=== PATIENT | female | born 1945 | race Caucasian/White ===

== ENCOUNTER → 2018-07-13 | Outpatient (CLI) | payer MEDICARE, BC ==
[~2018-07-13] MED LIST: ACHD5005 PO; ASP81TEC PO; ATRV10T PO; BUPR150T6 PO; CALTRATE 600 +1 EACH PO; CEPH500C PO; CLD600T PO; DIAZ5TAB3 PO; ESCI5TAB PO; EST45C VG; FERR27TA PO; HYDR-757 PO; LACT1CAP62 PO; LEVO125T PO; LRZ1T PO; LVT.112T PO; OMG1KC PO
--- NOTE | 2018-07-13 13:15 | Diagnostic Imaging Report ---
EXAMINATION: Right hand at 09:51 a.m. INDICATION: Hand pain. FINDINGS: Three views were obtained. There are no prior studies available for comparison. There is no fracture, dislocation, or acute bony abnormality evident. In particular, there is no sign of an acute injury to the third and fourth metacarpals. 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 There is also at least moderate narrowing of the radiocarpal joint. The soft tissues are unremarkable. IMPRESSION: 1. There is no evidence for an acute bony abnormality. 2. 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 Dictated by: Dictated on workstation # [id number]
== END ==
LOC: RAD 09:19
PROVIDERS: ATTEND Nurse Practitioner Family
DX: M19.041 Primary osteoarthritis, right hand (principal)
CPT/HCPCS: 73130

== ENCOUNTER 2018-12-27 08:46 | Emergency (ER) | payer MEDICARE, BC ==
[~2018-12-27] VITALS: Ht 167.6 cm; Wt 77.6 kg
--- OUTSIDE RECORDS SUMMARY | 2018-12-27 08:56 | XMS REPORT | CCD ---
Author Author [facility]ina [facility]ado Organization [facility] Address [address] [place] [address] Phone Care Team Providers Care Customs Verifier Name Role Phone PP Unavailable CCM Unavailable Summary Purpose Interface Exchange Insurance Providers Payer name Policy type / Coverage type Covered libertarian ID Effective Begin Date Effective End Date WPS Medicare Part B [id number] 2014 Unknown [facility] [id number] 2014 Unknown Family history Sister Diagnosis Age At Onset Hypertension Unknown Mother Diagnosis Age At Onset No Family Disease Entered N/A Brother Diagnosis Age At Onset Hypertension Unknown Son Diagnosis Age At Onset No Family Disease Entered N/A Daughter Diagnosis Age At Onset No Family Disease Entered N/A Father Diagnosis Age At Onset Colon cancer Unknown Heart Attack Unknown Heart disease Unknown Social History Social History Element Codes Description Effective Dates Tobacco history SNOMED CT: 5289130 Former smoker quit 2 years ago, social smoker, 1 pack per month 200709/30/2013 Employment Unknown 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 Unknown Has never used illegal drugs 06/17/2011 Allergies, Adverse Reactions, Alerts Allergies, Adverse Reactions, Alerts data not found Past Medical History Illness Codes Condition Status Onset Date Resolved Date Encounter for immunization ICD-9: V04.81 ICD-10: Z23 Active 06/07/2017 Unknown Acute vaginitis ICD-9: 623.5 ICD-10: N76.0 Active 02/16/2017 Unknown Pelvic and perineal pain ICD-9: [id number] ICD-10: R10.2 Active 02/16/2017 Unknown Major depressive disorder, recurrent, moderate ICD-9: 296.32 ICD-10: F33.1 Active 06/20/2016 Unknown 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.0 Active 02/06/2017 Unknown Encounter for general adult medical examination with abnormal findings ICD-9: V70.0 ICD-10: Z00.01 Active 11/17/2016 Unknown Hypothyroidism, unspecified ICD-9: 244.9 ICD-10: E03.9 Active 12/05/2013 Unknown Generalized anxiety disorder ICD-9: 313.0 ICD-10: F41.1 Active 06/20/2016 Unknown Depression Unknown Inactive 09/05/2016 Unknown Hypertension Unknown Inactive 09/05/2016 Unknown Hypothryroidism Unknown Inactive 09/05/2016 Unknown Acute upper respiratory infection, unspecified ICD-9: 465.9 ICD-10: J06.9 Active 07/22/2015 Unknown Cough ICD-9: 786.2 ICD-10: R05 Active 07/22/2015 Unknown 2Nd degree burn of multiple fingers of right hand not including thumb ICD-9: 944.23 Inactive 02/15/2015 Unknown ACUTE URI ICD-9: 465.9 Inactive 01/21/2014 Unknown Arthralgia ICD-9: 719.40 Inactive 04/23/2014 Unknown Arthropod bite ICD-9: 919.4 Inactive 04/23/2014 Unknown CHEST PAIN NEC ICD-9: 786.59 Inactive 09/05/2016 Unknown Chronic depression ICD- 9: 311 Inactive 08/22/2011 Unknown Colon cancer screening ICD-9: V76.51 Inactive 10/10/2013 Unknown COUGH ICD-9: 786.2 Inactive 01/21/2014 Unknown Foot pain ICD-9: 729.5 Inactive 12/09/2014 Unknown GENERALIZED ANXIETY DISEASE ICD-9: 300.02 Inactive 12/05/2013 Unknown HYPERLIPIDEMIA ICD-9: 272.4 Inactive 06/17/2011 Unknown HYPOTHYROIDISM ICD-9: 244.9 Inactive 12/05/2013 Unknown Muscle tension headache ICD-9: 307.81 Inactive 05/16/2014 Unknown Myalgia ICD-9: 729.1 Inactive 04/23/2014 Unknown Neck pain ICD-9: 723.1 Inactive 05/16/2014 Unknown Pelvic pain in female ICD- 9: 625.9 Inactive 10/10/2014 Unknown Poison diana dermatitis ICD- 9: 692.6 Inactive 04/23/2014 Unknown POSTSURGICAL HYPOTHYROIDISM ICD-9: 244.0 Inactive 09/05/2016 Unknown Skin eruption ICD-9: 782.1 Inactive 02/11/2014 Unknown Vac strep pneumoniae-flu ICD-9: V06.6 Inactive 04/15/2014 Unknown Well woman exam with routine gynecological exam ICD-9: V72.31 Inactive 10/15/2013 Unknown Encounter for general adult medical examination without abnormal findings ICD-9: V70.0 ICD-10: Z00.00 Active 11/12/2015 Unknown Encounter for immunization ICD-9: V03.9 ICD-10: Z23 Active 11/12/2015 Unknown Generalized anxiety disorder ICD-9: 300.02 ICD-10: F41.1 Active 12/05/2013 Unknown Other depressive episodes ICD-9: 311 ICD-10: F32.8 Active 08/22/2011 Unknown Major depressive disorder, recurrent, unspecified ICD-9: 296.30 ICD-10: F33.9 Active 05/25/2015 Unknown Hammertoe ICD-9: 735.4 Active 12/09/2014 Unknown Urinary incontinence ICD- 9: 788.30 Active 10/10/2014 Unknown Welcome to Medicare preventive visit ICD-9: V70.0 Active 09/30/2013 Unknown Hyperlipidemia Unknown Active 06/17/2011 Unknown Problems Condition Codes Effective Dates Condition Status Encounter for immunization ICD-9: V04.81 ICD-10: Z23 06/07/2017 Active Acute vaginitis ICD-9: 623.5 ICD-10: N76.0 02/16/2017 Active Pelvic and perineal pain ICD-9: [id number] ICD-10: R10.2 02/16/2017 Active Major depressive disorder, recurrent, moderate ICD-9: 296.32 ICD-10: F33.1 06/20/2016 Active 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.0 02/06/2017 Active Encounter for general adult medical examination with abnormal findings ICD-9: V70.0 ICD-10: Z00.01 11/17/2016 Active Hypothyroidism, unspecified ICD-9: 244.9 ICD-10: E03.9 12/05/2013 Active Generalized anxiety disorder ICD-9: 313.0 ICD-10: F41.1 06/20/2016 Active Depression Unknown 09/05/2016 Inactive Hypertension Unknown 09/05/2016 Inactive Hypothryroidism Unknown 09/05/2016 Inactive Acute upper respiratory infection, unspecified ICD-9: 465.9 ICD-10: J06.9 07/22/2015 Active Cough ICD-9: 786.2 ICD-10: R05 07/22/2015 Active 2Nd degree burn of multiple fingers of right hand not including thumb ICD-9: 944.23 02/15/2015 Inactive ACUTE URI ICD-9: 465.9 01/21/2014 Inactive Arthralgia ICD-9: 719.40 04/23/2014 Inactive Arthropod bite ICD-9: 919.4 04/23/2014 Inactive CHEST PAIN NEC ICD-9: 786.59 09/05/2016 Inactive Chronic depression ICD- 9: 311 08/22/2011 Inactive Colon cancer screening ICD-9: V76.51 10/10/2013 Inactive COUGH ICD-9: 786.2 01/21/2014 Inactive Foot pain ICD-9: 729.5 12/09/2014 Inactive GENERALIZED ANXIETY DISEASE ICD-9: 300.02 12/05/2013 Inactive HYPERLIPIDEMIA ICD-9: 272.4 06/17/2011 Inactive HYPOTHYROIDISM ICD-9: 244.9 12/05/2013 Inactive Muscle tension headache ICD-9: 307.81 05/16/2014 Inactive Myalgia ICD-9: 729.1 04/23/2014 Inactive Neck pain ICD-9: 723.1 05/16/2014 Inactive Pelvic pain in female ICD- 9: 625.9 10/10/2014 Inactive Poison diana dermatitis ICD- 9: 692.6 04/23/2014 Inactive POSTSURGICAL HYPOTHYROIDISM ICD-9: 244.0 09/05/2016 Inactive Skin eruption ICD-9: 782.1 02/11/2014 Inactive Vac strep pneumoniae-flu ICD-9: V06.6 04/15/2014 Inactive Well woman exam with routine gynecological exam ICD-9: V72.31 10/15/2013 Inactive Encounter for general adult medical examination without abnormal findings ICD-9: V70.0 ICD-10: Z00.00 11/12/2015 Active Encounter for immunization ICD-9: V03.9 ICD-10: Z23 11/12/2015 Active Generalized anxiety disorder ICD-9: 300.02 ICD-10: F41.1 12/05/2013 Active Other depressive episodes ICD-9: 311 ICD-10: F32.8 08/22/2011 Active Major depressive disorder, recurrent, unspecified ICD-9: 296.30 ICD-10: F33.9 05/25/2015 Active Hammertoe ICD-9: 735.4 12/09/2014 Active Urinary incontinence ICD- 9: 788.30 10/10/2014 Active Welcome to Medicare preventive visit ICD-9: V70.0 09/30/2013 Active Hyperlipidemia Unknown 06/17/2011 Active Medications Medication Codes Instructions Start Date Stop Date Status Fill Instructions Synthroid 112 mcg tablet RxNorm: 745009 TAKE 1 TABLET BY MOUTH DAILY EXCEPT TAKE 1/2 TABLET ON MONDAY, MONDAY, AND Monday05/22/2017 11/05/2017 Active Lipitor 10 mg tablet RxNorm: 603953 TAKE ONE TABLET BY MOUTH EVERY DAY 03/08/2017 05/31/2018 Active Flagyl 500 mg tablet RxNorm: 315334 1 Tablet(s) PO TID 02/16/2017 02/22/2017 Inactive Xanax 0.5 mg tablet RxNorm: 818202 1 Tablet(s) PO QID as needed anxiety 12/23/2016 03/22/2017 Inactive Synthroid 112 mcg tablet RxNorm: 085916 TAKE 1 TABLET BY MOUTH DAILY EXCEPT FOR TAKE 1/2 TABLET ON MONDAY, MONDAY, AND Monday12/23/2016 04/13/2017 Inactive Lexapro 20 mg tablet RxNorm: 257292 TAKE ONE TABLET BY MOUTH DAILY 11/29/2016 05/27/2017 Inactive Zithromax Z-Que 250 mg tablet RxNorm: 012754 1 Tablet(s) PO UD 09/05/2016 09/09/2016 Inactive zpack Kenalog 40 mg/mL suspension for injection RxNorm: 6174969 1 Milliliter(s) Inj 09/05/2016 09/05/2016 Inactive Lipitor 10 mg tablet RxNorm: 151210 TAKE ONE TABLET BY MOUTH EVERY DAY 08/30/2016 02/25/2017 Inactive Ativan 1 mg tablet RxNorm: 044928 1 Tablet(s) PO Q6 PRN as needed TAKE ONE TABLET BY MOUTH THREE TIMES A DAY OR EVERY 6 HOURS NEEDED FOR ANXIETY 08/30/2016 12/22/2016 Inactive Synthroid 112 mcg tablet RxNorm: 251312 1 Tablet(s) PO daily except one-half tab on Mon/Mon/Mon08/23/2016 12/12/2016 Inactive will refill when needed Lexapro 20 mg tablet RxNorm: 894485 TAKE ONE TABLET BY MOUTH DAILY 08/02/2016 11/28/2016 Inactive Synthroid 112 mcg tablet RxNorm: 165019 1 Tablet(s) PO daily except 1/2 tab wed and sat 05/25/2016 08/22/2016 Inactive will refill when needed Xanax 0.5 mg tablet RxNorm: 825280 1 Tablet(s) PO QID as needed anxiety 05/10/2016 08/29/2016 Inactive Lexapro 20 mg tablet RxNorm: 135371 1 Tablet(s) PO daily 05/03/2016 07/31/2016 Inactive 1/2 tab x 1 week then increase to a full pill daily buspirone 5 mg tablet RxNorm: 850003 TAKE ONE-HALF TABLET BY MOUTH TWICE A DAY 03/15/2016 05/02/2016 Inactive Synthroid 112 mcg tablet RxNorm: 026839 1 Tablet(s) PO daily 02/25/2016 05/24/2016 Inactive Ativan 1 mg tablet RxNorm: 762692 Tablet(s) TAKE ONE TABLET BY MOUTH THREE TIMES A DAY OR EVERY 6 HOURS NEEDED FOR ANXIETY 02/04/2016 05/08/2016 Inactive Synthroid 125 mcg tablet RxNorm: 836503 TAKE ONE TABLET BY MOUTH TWICE WEEKLY 01/11/2016 02/24/2016 Inactive Synthroid 112 mcg tablet RxNorm: 829486 TAKE ONE TABLET BY MOUTH FIVE DAYS A WEEK 01/11/2016 02/24/2016 Inactive Wellbutrin 75 mg tablet RxNorm: 227039 TAKE ONE TABLET BY MOUTH TWICE A DAY 01/11/2016 05/02/2016 Inactive Ativan 1 mg tablet RxNorm: 624225 TAKE ONE TABLET BY MOUTH THREE TIMES A DAY OR EVERY 6 HOURS NEEDED 12/03/2015 12/27/2015 Inactive Lipitor 10 mg tablet RxNorm: 958258 TAKE ONE TABLET BY MOUTH EVERY DAY 12/03/2015 08/28/2016 Inactive Ativan 1 mg tablet RxNorm: 092059 Tablet(s) TAKE ONE TABLET BY MOUTH THREE TIMES A DAY AND TAKE ONE TABLET BY MOUTH EVERY 6 HOURS NEEDED FOR ANXIETY 12/03/2015 12/02/2015 Inactive (Response to an electronic controlled substance refill request - RxReferenceNumber: [id number]) Wellbutrin 75 mg tablet RxNorm: 313727 1 Tablet(s) PO BID 11/13/2015 01/10/2016 Inactive Ativan 1 mg tablet RxNorm: 951308 Tablet(s) TAKE ONE TABLET BY MOUTH THREE TIMES A DAY AND TAKE ONE TABLET BY MOUTH EVERY 6 HOURS NEEDED FOR ANXIETY 09/23/2015 10/30/2015 Inactive (Response to an electronic controlled substance refill request - RxReferenceNumber: [id number]) buspirone 5 mg tablet RxNorm: 711171 TAKE ONE-HALF TABLET BY MOUTH TWICE A DAY 08/18/2015 03/01/2016 Inactive ceftriaxone 500 mg solution for injection RxNorm: 6510506 Inj 07/23/2015 07/23/2015 Inactive Zithromax Z-Que 250 mg tablet RxNorm: 004033 1 Tablet(s) PO UD 07/23/2015 07/27/2015 Inactive ZPACK buspirone 5 mg tablet RxNorm: 494623 1 Tablet(s) PO daily 07/06/2015 10/03/2015 Inactive buspirone 5 mg tablet RxNorm: 239268 1/2 Tablet(s) PO BID 05/26/2015 07/05/2015 Inactive Lipitor 10 mg tablet RxNorm: 899881 TAKE ONE TABLET BY MOUTH EVERY DAY 04/23/2015 10/19/2015 Inactive Ativan 1 mg tablet RxNorm: 493482 Tablet(s) TAKE ONE TABLET BY MOUTH THREE TIMES A DAY AND TAKE ONE TABLET BY MOUTH EVERY 6 HOURS NEEDED FOR ANXIETY 02/23/2015 04/01/2015 Inactive (Response to an electronic controlled substance refill request - RxReferenceNumber: [id number]) Synthroid 125 mcg tablet RxNorm: 984508 1 Tablet(s) PO UD twice weekly 12/10/2014 06/07/2015 Inactive Synthroid 112 mcg tablet RxNorm: 165702 1 Tablet(s) PO UD TAKE ONE TABLET BY MOUTH 5 days a week 12/10/2014 12/04/2015 Inactive Lexapro 20 mg tablet RxNorm: 228667 1 Tablet(s) PO daily 11/26/2014 11/12/2015 Inactive Lipitor 10 mg tablet RxNorm: 011825 TAKE ONE TABLET BY MOUTH EVERY DAY 10/21/2014 04/18/2015 Inactive amoxicillin 500 mg capsule RxNorm: 139949 1 Capsule(s) PO TID 10/15/2014 10/21/2014 Inactive take probiotic BID x 7 days during abt period amoxicillin 500 mg capsule RxNorm: 697450 1 Capsule(s) PO TID 10/15/2014 10/14/2014 Inactive take probiotic BID x 7 days during abt period Ativan 1 mg tablet RxNorm: 881842 TAKE ONE TABLET BY MOUTH THREE TIMES A DAY AND TAKE ONE TABLET BY MOUTH EVERY 6 HOURS NEEDED FOR ANXIETY 08/21/2014 09/28/2014 Inactive (Response to an electronic controlled substance refill request - RxReferenceNumber: [id number]) Ativan 1 mg tablet RxNorm: 199028 1 Tablet(s) PO tid and Q6 PRN as needed 08/18/2014 08/21/2014 Inactive doxycycline hyclate 100 mg tablet RxNorm: 279348 1 Tablet(s) PO BID 04/23/2014 05/25/2015 Inactive prednisone 10 mg tablets in a dose pack RxNorm: 406664 1 Tablet(s) PO 02/14/2014 05/25/2015 Inactive Kenalog 40 mg/mL suspension for injection RxNorm: 1603831 1 Milliliter(s) Inj 02/11/2014 02/11/2014 Inactive Keflex 500 mg capsule RxNorm: 997570 1 Capsule(s) PO TID 01/21/2014 01/27/2014 Inactive Kenalog 40 mg/mL suspension for injection RxNorm: 5748892 Milliliter(s) Inj 01/21/2014 01/21/2014 Inactive Synthroid 112 mcg tablet RxNorm: 352920 1 Tablet(s) PO daily TAKE ONE TABLET BY MOUTH EVERY DAY 12/05/2013 11/29/2014 Inactive Ativan 1 mg tablet RxNorm: 001554 1 Tablet(s) PO Q6 PRN 11/05/2013 02/02/2014 Inactive Lexapro 20 mg tablet RxNorm: 208820 1 Tablet(s) PO daily 11/05/2013 11/04/2013 Inactive Lexapro 20 mg tablet RxNorm: 236257 1 Tablet(s) PO daily 11/05/2013 10/30/2014 Inactive Lipitor 10 mg tablet RxNorm: 004379 1 Tablet(s) PO QPM TAKE ONE TABLET BY MOUTH EVERY DAY 09/30/2013 10/20/2014 Inactive Lexapro 20 mg tablet RxNorm: 568030 1 Tablet(s) PO daily 09/30/2013 11/04/2013 Inactive Synthroid 125 mcg tablet RxNorm: 104068 1 Tablet(s) PO daily 09/10/2013 12/04/2013 Inactive Synthroid 100 mcg tablet RxNorm: 042707 1 Tablet(s) PO daily TAKE ONE TABLET BY MOUTH EVERY DAY 09/06/2013 09/09/2013 Inactive Lipitor 10 mg tablet RxNorm: 828340 Tablet(s) PO TAKE ONE TABLET BY MOUTH EVERY DAY 08/15/2013 09/29/2013 Inactive Synthroid 100 mcg tablet RxNorm: 908623 1 Tablet(s) PO daily TAKE ONE TABLET BY MOUTH EVERY DAY 04/26/2013 09/05/2013 Inactive Ativan 1 mg tablet RxNorm: 355879 1 Tablet(s) PO Q6 PRN 03/13/2013 No Stop Date Active Synthroid 100 mcg tablet RxNorm: 734989 1 Tablet(s) PO daily TAKE ONE TABLET BY MOUTH EVERY DAY 03/13/2013 04/25/2013 Inactive Lexapro 20 mg tablet RxNorm: 724147 1/2 Tablet(s) PO BID 03/13/2013 09/29/2013 Inactive Synthroid 112 mcg tablet RxNorm: 145176 Tablet(s) PO TAKE ONE TABLET BY MOUTH EVERY DAY 01/08/2013 03/12/2013 Inactive Lexapro 20 mg tablet RxNorm: 527195 Tablet(s) PO TAKE 1/2 TABLET EVERY MORNING AND TAKE ONE TABLET BY MOUTH AT BEDTIME 10/18/2012 03/12/2013 Inactive Lipitor 20 mg tablet RxNorm: 899740 1/2 Tablet(s) PO daily 08/20/2012 02/04/2013 Inactive Lipitor 10 mg tablet RxNorm: 662972 1 Tablet(s) PO daily 05/23/2012 08/19/2012 Inactive Synthroid 112 mcg tablet RxNorm: 933168 1 Tablet(s) PO daily 12/16/2011 01/07/2013 Inactive Synthroid 112 mcg Tab RxNorm: 076991 1 Tablet(s) PO daily 12/16/2011 12/15/2011 Inactive Lipitor 10 mg tablet RxNorm: 215311 1 Tablet(s) PO daily 12/15/2011 05/22/2012 Inactive Synthroid 112 mcg Tab RxNorm: 823204 1 Tablet(s) PO every other day 11/09/2011 12/15/2011 Inactive every other day Synthroid 112 mcg Tab RxNorm: 277616 1 Tablet(s) PO every other day 10/21/2011 11/08/2011 Inactive every other day Synthroid 125 mcg Tab RxNorm: 635738 1 Tablet(s) PO every other day 10/21/2011 12/16/2011 Inactive every other day Lexapro 20 mg tablet RxNorm: 400252 1.5 Tablet(s) PO daily 1/2 pill in AM and 1 pill at bedtime 09/22/2011 04/18/2012 Inactive 1/2 q am 1 q hs diazepam 5 mg Tab RxNorm: 370194 1 Tablet(s) PO daily 1 tab bid prn 09/21/2011 05/17/2012 Inactive Lexapro 20 mg Tab RxNorm: 434011 1.5 Tablet(s) PO daily 1/2 pill in AM and 1 pill at bedtime 08/22/2011 09/21/2011 Inactive diazepam 5 mg Tab RxNorm: 780018 1 Tablet(s) PO daily 1 tab bid prn 06/20/2011 09/20/2011 Inactive diazepam 5 mg Tab RxNorm: 230181 1 Tablet(s) PO daily 1 tab bid prn 06/20/2011 06/19/2011 Inactive diazepam 5 mg Tab RxNorm: 169792 1 Tablet(s) PO daily 1 tab bid prn 06/17/2011 06/19/2011 Inactive Lipitor 10 mg Tab RxNorm: 501519 1 Tablet(s) PO daily 05/31/2011 11/26/2011 Inactive diazepam 5 mg Tab RxNorm: 322141 1 Tablet(s) PO BID 1 tab bid prn 04/21/2011 05/20/2011 Inactive Calcium 600 + D(3) Oral RxNorm: Oral No Start Date Active Menest 0.625 mg Tab RxNorm: 373771 1 Tablet(s) PO daily No Start Date 06/16/2011 Inactive Synthroid 125 mcg tablet RxNorm: 890869 Tablet(s) PO No Start Date 09/09/2013 Inactive Ativan 1 mg tablet RxNorm: 209815 1 Tablet(s) PO Q6 PRN No Start Date 08/21/2011 Inactive aspirin 81 mg Tab, Delayed Release RxNorm: 8640093 1 Tablet(s) PO daily No Start Date 09/29/2013 Inactive Lexapro 10 mg Tab RxNorm: 232100 1 Tablet(s) PO daily No Start Date 08/22/2011 Inactive prednisone 10 mg tablets in a dose pack RxNorm: 650520 1 Tablet(s) PO No Start Date 02/13/2014 Inactive Synthroid 112 mcg Tab RxNorm: 368389 Tablet(s) PO tues/thurs/sat/sun No Start Date 10/20/2011 Inactive lorazepam 1 mg Tab RxNorm: 939921 Tablet(s) PO Q6 PRN No Start Date 11/04/2013 Inactive Lipitor 20 mg tablet RxNorm: 902361 1/2 Tablet(s) PO daily No Start Date 08/20/2012 Inactive Vitamin D2 oral RxNorm: oral No Start Date 09/29/2013 Inactive Synthroid 125 mcg Tab RxNorm: 108405 1 Tablet(s) PO No Start Date 10/20/2011 Inactive synthroid 112 mcg mon Medication Administered Medication Codes Instructions Start Date Status Kenalog 40 mg/mL suspension for injection RxNorm: 1923774 1Milliliter 09/05/2016 No longer Active ceftriaxone 500 mg solution for injection RxNorm: 6490334 07/23/2015 No longer Active Kenalog 40 mg/mL suspension for injection RxNorm: 2888075 1Milliliter 02/11/2014 No longer Active Kenalog 40 mg/mL suspension for injection RxNorm: 5410875 Milliliter 01/21/2014 No longer Active Immunizations Vaccine Codes Date Status Pneumococcal (Adult) CVX: 133 11/13/2015 completed Influenza CVX: 141 04/15/2014 completed Pneumococcal (Adult) CVX: 33 04/15/2014 completed PPD Unknown 10/10/2013 completed Influenza CVX: 141 09/30/2013 completed Assessments Condition Codes Effective Dates Encounter for immunization ICD-10: Z23 ICD-9: V04.81 06/07/2017 Pelvic and perineal pain ICD-10: R10.2 ICD-9: ZPC3120 02/16/2017 Acute vaginitis ICD-10: N76.0 ICD-9: 623.5 02/16/2017 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 ICD-9: 244.0 02/06/2017 Major depressive disorder, recurrent, moderate ICD-10: F33.1 ICD-9: 296.32 02/06/2017 Other specified hypothyroidism ICD-10: E03.8 ICD-9: 244.8 11/17/2016 Encounter for general adult medical examination with abnormal findings ICD-10: Z00.01 ICD-9: V70.0 11/17/2016 Generalized anxiety disorder ICD-10: F41.1 ICD-9: 313.0 10/12/2016 Acute upper respiratory infection, unspecified ICD-10: J06.9 ICD-9: 465.9 09/05/2016 Cough ICD-10: R05 ICD-9: 786.2 09/05/2016 Encounter for immunization ICD-10: Z23 ICD-9: V03.9 11/13/2015 Encounter for general adult medical examination without abnormal findings ICD-10: Z00.00 ICD-9: V70.0 11/13/2015 Other depressive episodes ICD-10: F32.8 ICD-9: 311 07/06/2015 Hypothyroidism, unspecified ICD-10: E03.9 ICD-9: 244.9 07/06/2015 Generalized anxiety disorder ICD-10: F41.1 ICD-9: 300.02 07/06/2015 Major depressive disorder, recurrent, unspecified ICD-10: F33.9 ICD-9: 296.30 05/26/2015 2Nd degree burn of multiple fingers of right hand not including thumb ICD-9: 944.23 02/16/2015 HYPOTHYROIDISM ICD-9: 244.9 12/10/2014 Foot pain ICD-9: 729.5 12/10/2014 Hammertoe ICD-9: 735.4 12/10/2014 Urinary incontinence ICD-9: 788.30 10/16/2014 Pelvic pain in female ICD-9: 625.9 10/16/2014 Neck pain ICD-9: 723.1 05/16/2014 Muscle tension headache ICD-9: 307.81 05/16/2014 Arthralgia ICD-9: 719.40 04/23/2014 Myalgia ICD-9: 729.1 04/23/2014 Arthropod bite ICD-9: 919.4 04/23/2014 Poison diana dermatitis ICD-9: 692.6 04/23/2014 Vac strep pneumoniae-flu ICD-9: V06.6 04/15/2014 Skin eruption ICD-9: 782.1 02/11/2014 COUGH ICD-9: 786.2 01/21/2014 ACUTE URI ICD-9: 465.9 01/21/2014 GENERALIZED ANXIETY DISEASE ICD-9: 300.02 12/05/2013 DEPRESSIVE DISORDER NEC ICD-9: 311 11/05/2013 Well woman exam with routine gynecological exam ICD-9: V72.31 10/15/2013 Colon cancer screening ICD-9: V76.51 10/10/2013 Welcome to Medicare preventive visit ICD-9: V70.0 09/30/2013 HYPERLIPIDEMIA ICD-9: 272.4 03/13/2013 CHEST PAIN NEC ICD-9: 786.59 06/17/2011 POSTSURGICAL HYPOTHYROIDISM ICD-9: 244.0 06/17/2011 Reason For Visit Reason For Visit Effective Dates Notes vaccination against influenza 06/07/2017 urinary frequency 02/16/2017 depression 02/06/2017 Annual Medicare Wellness Exam 11/17/2016 depression 10/12/2016 sore throat 09/05/2016 depression 06/21/2016 depression 05/24/2016 depression 05/10/2016 depression 05/03/2016 Annual Medicare Wellness Exam 11/13/2015 cough 07/23/2015 medication follow up 07/06/2015 medication follow up 05/26/2015 pain 02/16/2015 _ 12/10/2014 abdominal pain 10/16/2014 abdominal pain 10/09/2014 _ 08/26/2014 lab follow up headache 05/16/2014 back pain 04/23/2014 pt reports posion diana on left hand and feet vaccination against influenza 04/15/2014 sore throat 01/21/2014 anxiety 12/05/2013 Hospital Follow Up 11/05/2013 went to ER well woman exam (65+ years) 10/15/2013 fatigue 03/13/2013 depression 10/04/2012 anxiety 08/22/2011 chest pain/pressure 06/17/2011 Results Observation Observation Code Item Item Code Result Date Tsh Ord6 hTSH II 1.07 uIU/mL 11/17/2016 Free T4 [id number] FREE T4 1.02 ng/dL 11/17/2016 Lipid Ord30 CHOL 195 mg/dL 10/13/2016 Lipid Ord30 HDL 68.0 mg/dl 10/13/2016 Lipid Ord30 TRIG 69 mg/dL 10/13/2016 Lipid Ord30 LDL 113 mg/dL 10/13/2016 Lipid Ord30 C/HDL 2.9 Ratio 10/13/2016 Comp Metabolic Zbt452 NA 138 mEq/L 10/13/2016 Comp Metabolic Vwo486 K 4.4 mEq/L 10/13/2016 Comp Metabolic Aws168 CL 102 mEq/L 10/13/2016 Comp Metabolic Kjs042 CO2 29.0 mEq/L 10/13/2016 Comp Metabolic Nwi417 ANION GAP 11 10/13/2016 Comp Metabolic Lza786 GLUCOSE 85 mg/dL 10/13/2016 Comp Metabolic Kkn987 Creat 1.0 mg/dL 10/13/2016 Comp Metabolic Ddt205 eGFR 59 ml/min/1.73m2 10/13/2016 Comp Metabolic Tfp062 BUN 21 mg/dL 10/13/2016 Comp Metabolic Cza877 B/C Ratio 21.2 Ratio 10/13/2016 Comp Metabolic Guu728 CALCIUM 9.7 mg/dL 10/13/2016 Comp Metabolic Lif777 ALK PHOS 70 U/L 10/13/2016 Comp Metabolic Mjc826 AST(SGOT) 17 U/L 10/13/2016 Comp Metabolic Wof433 ALT(SGPT) 14 U/L 10/13/2016 Comp Metabolic Bsa411 BILI T 0.9 mg/dL 10/13/2016 Comp Metabolic Szi867 ALBUMIN 4.4 g/dL 10/13/2016 Comp Metabolic Clx978 TPRO 7.1 g/dL 10/13/2016 Comp Metabolic Ucd676 GLOB 2.7 g/dL 10/13/2016 Comp Metabolic Mbm698 A/G Ratio 1.6 Ratio 10/13/2016 Comp Metabolic Mgh731 Osmo 278 mOsmo 10/13/2016 Cbc With Differential Ord2 WBC 6.00 K/ul 10/13/2016 Cbc With Differential Ord2 RBC 4.71 M/ul 10/13/2016 Cbc With Differential Ord2 HGB 14.0 g/dl 10/13/2016 Cbc With Differential Ord2 HCT 42.2 % 10/13/2016 Cbc With Differential Ord2 Neut% 66.4 % 10/13/2016 Cbc With Differential Ord2 Lymph% 23.8 % 10/13/2016 Cbc With Differential Ord2 MCV 89.6 fl 10/13/2016 Cbc With Differential Ord2 MCH 29.7 pg 10/13/2016 Cbc With Differential Ord2 [place]% 7.7 % 10/13/2016 Cbc With Differential Ord2 MCHC 33.2 pg 10/13/2016 Cbc With Differential Ord2 Eos% 1.8 % 10/13/2016 Cbc With Differential Ord2 PLT 521 K/ul 10/13/2016 Cbc With Differential Ord2 Baso% 0.3 % 10/13/2016 Cbc With Differential Ord2 RDW 13.9 % 10/13/2016 Cbc With Differential Ord2 Neut ABS# 3.98 K/ul 10/13/2016 Cbc With Differential Ord2 Lymph ABS# 1.43 K/ul 10/13/2016 Cbc With Differential Ord2 [place] ABS# 0.5 K/ul 10/13/2016 Cbc With Differential Ord2 Eos ABS# 0.1 K/ul 10/13/2016 Cbc With Differential Ord2 Baso ABS# 0.0 K/ul 10/13/2016 Free T4 [id number] FREE T4 1.31 ng/dL 08/17/2016 Tsh Ord6 hTSH II 0.64 uIU/mL 08/17/2016 Free T4 Xea856 FREE T4 1.49 ng/dL 05/10/2016 Comp Metabolic Aew614 NA 139 mEq/L 05/10/2016 Comp Metabolic Uph840 K 4.5 mEq/L 05/10/2016 Comp Metabolic Npv349 CL 104 mEq/L 05/10/2016 Comp Metabolic Mpk522 CO2 24.0 mEq/L 05/10/2016 Comp Metabolic Tgb082 ANION GAP 16 05/10/2016 Comp Metabolic Czl019 GLUCOSE 87 mg/dL 05/10/2016 Comp Metabolic Dec425 Creat 0.9 mg/dL 05/10/2016 Comp Metabolic Dnt985 eGFR 71 ml/min/1.73m2 05/10/2016 Comp Metabolic Qcm731 BUN 12 mg/dL 05/10/2016 Comp Metabolic Mim914 B/C Ratio 14.1 Ratio 05/10/2016 Comp Metabolic Amh192 CALCIUM 9.6 mg/dL 05/10/2016 Comp Metabolic Ajy968 ALK PHOS 89 U/L 05/10/2016 Comp Metabolic Gna316 AST(SGOT) 17 U/L 05/10/2016 Comp Metabolic Wfj027 ALT(SGPT) 17 U/L 05/10/2016 Comp Metabolic Yod759 BILI T 0.9 mg/dL 05/10/2016 Comp Metabolic Qvp887 ALBUMIN 4.2 g/dL 05/10/2016 Comp Metabolic Xij403 TPRO 6.7 g/dL 05/10/2016 Comp Metabolic Hbv122 GLOB 2.5 g/dL 05/10/2016 Comp Metabolic Pfp793 A/G Ratio 1.7 Ratio 05/10/2016 Comp Metabolic Lmj878 Osmo 277 mOsmo 05/10/2016 Cbc With Differential Ord2 WBC 6.60 K/ul 05/10/2016 Cbc With Differential Ord2 RBC 4.98 M/ul 05/10/2016 Cbc With Differential Ord2 HGB 14.5 g/dl 05/10/2016 Cbc With Differential Ord2 HCT 42.6 % 05/10/2016 Cbc With Differential Ord2 Neut% 64.4 % 05/10/2016 Cbc With Differential Ord2 MCV 85.5 fl 05/10/2016 Cbc With Differential Ord2 Lymph% 23.8 % 05/10/2016 Cbc With Differential Ord2 [place]% 8.3 % 05/10/2016 Cbc With Differential Ord2 MCH 29.1 pg 05/10/2016 Cbc With Differential Ord2 Eos% 2.9 % 05/10/2016 Cbc With Differential Ord2 MCHC 34.0 pg 05/10/2016 Cbc With Differential Ord2 Baso% 0.6 % 05/10/2016 Cbc With Differential Ord2 PLT 457 K/ul 05/10/2016 Cbc With Differential Ord2 RDW 13.5 % 05/10/2016 Cbc With Differential Ord2 Neut ABS# 4.25 K/ul 05/10/2016 Cbc With Differential Ord2 Lymph ABS# 1.57 K/ul 05/10/2016 Cbc With Differential Ord2 [place] ABS# 0.6 K/ul 05/10/2016 Cbc With Differential Ord2 Eos ABS# 0.2 K/ul 05/10/2016 Cbc With Differential Ord2 Baso ABS# 0.0 K/ul 05/10/2016 Tsh Ord6 hTSH II 0.03 uIU/mL 05/10/2016 Free T4 Lhx507 FREE T4 1.67 ng/dL 02/18/2016 Tsh Ord6 hTSH II 0.06 uIU/mL 02/18/2016 Comp Metabolic Dkm398 NA 138 mEq/L 02/18/2016 Comp Metabolic Zxq562 K 4.5 mEq/L 02/18/2016 Comp Metabolic Yqd308 CL 104 mEq/L 02/18/2016 Comp Metabolic Zod785 CO2 26.0 mEq/L 02/18/2016 Comp Metabolic Iec705 ANION GAP 13 02/18/2016 Comp Metabolic Ynd472 GLUCOSE 88 mg/dL 02/18/2016 Comp Metabolic Abp933 Creat 0.9 mg/dL 02/18/2016 Comp Metabolic Wgv210 eGFR 69 ml/min/1.73m2 02/18/2016 Comp Metabolic Iie739 BUN 14 mg/dL 02/18/2016 Comp Metabolic Bxa668 B/C Ratio 16.1 Ratio 02/18/2016 Comp Metabolic Gdg657 CALCIUM 9.4 mg/dL 02/18/2016 Comp Metabolic Xvi201 ALK PHOS 95 U/L 02/18/2016 Comp Metabolic Riq685 AST(SGOT) 19 U/L 02/18/2016 Comp Metabolic Lix536 ALT(SGPT) 18 U/L 02/18/2016 Comp Metabolic Abw821 BILI T 0.7 mg/dL 02/18/2016 Comp Metabolic Sjg171 ALBUMIN 4.4 g/dL 02/18/2016 Comp Metabolic Ttu437 TPRO 6.9 g/dL 02/18/2016 Comp Metabolic Ukr803 GLOB 2.5 g/dL 02/18/2016 Comp Metabolic Ydj806 A/G Ratio 1.7 Ratio 02/18/2016 Comp Metabolic Aza911 Osmo 276 mOsmo 02/18/2016 Lipid Ord30 CHOL 163 mg/dL 02/18/2016 Lipid Ord30 HDL 43.0 mg/dl 02/18/2016 Lipid Ord30 TRIG 90 mg/dL 02/18/2016 Lipid Ord30 LDL 102 mg/dL 02/18/2016 Lipid Ord30 C/HDL 3.8 Ratio 02/18/2016 Cbc With Differential Ord2 WBC 5.74 K/ul 02/18/2016 Cbc With Differential Ord2 RBC 4.91 M/ul 02/18/2016 Cbc With Differential Ord2 HGB 14.2 g/dl 02/18/2016 Cbc With Differential Ord2 HCT 42.0 % 02/18/2016 Cbc With Differential Ord2 Neut% 70.7 % 02/18/2016 Cbc With Differential Ord2 MCV 85.5 fl 02/18/2016 Cbc With Differential Ord2 Lymph% 18.8 % 02/18/2016 Cbc With Differential Ord2 [place]% 10.5 % 02/18/2016 Cbc With Differential Ord2 MCH 28.9 pg 02/18/2016 Cbc With Differential Ord2 MCHC 33.8 pg 02/18/2016 Cbc With Differential Ord2 Eos% 0.0 % 02/18/2016 Cbc With Differential Ord2 Baso% 0.0 % 02/18/2016 Cbc With Differential Ord2 PLT 474 K/ul 02/18/2016 Cbc With Differential Ord2 RDW 12.9 % 02/18/2016 Cbc With Differential Ord2 Neut ABS# 4.06 K/ul 02/18/2016 Cbc With Differential Ord2 Lymph ABS# 1.08 K/ul 02/18/2016 Cbc With Differential Ord2 [place] ABS# 0.6 K/ul 02/18/2016 Cbc With Differential Ord2 Eos ABS# 0.0 K/ul 02/18/2016 Cbc With Differential Ord2 Baso ABS# 0.0 K/ul 02/18/2016 Comp Metabolic Uks897 NA 136 mEq/L 06/08/2015 Comp Metabolic Kke320 K 3.9 mEq/L 06/08/2015 Comp Metabolic Ive499 CL 103 mEq/L 06/08/2015 Comp Metabolic Onh309 CO2 25.0 mEq/L 06/08/2015 Comp Metabolic Wom405 ANION GAP 12 06/08/2015 Comp Metabolic Mdf663 GLUCOSE 91 mg/dL 06/08/2015 Comp Metabolic Ywv864 Creat 0.9 mg/dL 06/08/2015 Comp Metabolic Ztt819 eGFR 68 ml/min/1.73m2 06/08/2015 Comp Metabolic Bpj813 BUN 10 mg/dL 06/08/2015 Comp Metabolic Ixy726 B/C Ratio 11.4 Ratio 06/08/2015 Comp Metabolic Cxo190 CALCIUM 9.4 mg/dL 06/08/2015 Comp Metabolic Rjy079 ALK PHOS 88 U/L 06/08/2015 Comp Metabolic Ieg913 AST(SGOT) 20 U/L 06/08/2015 Comp Metabolic Pfq421 ALT(SGPT) 18 U/L 06/08/2015 Comp Metabolic Xwr171 BILI T 0.8 mg/dL 06/08/2015 Comp Metabolic Scu679 ALBUMIN 4.4 g/dL 06/08/2015 Comp Metabolic Thw446 TPRO 7.0 g/dL 06/08/2015 Comp Metabolic Jbz978 GLOB 2.6 g/dL 06/08/2015 Comp Metabolic Ocd788 A/G Ratio 1.7 Ratio 06/08/2015 Comp Metabolic Xde666 Osmo 271 mOsmo 06/08/2015 Tsh Ord6 hTSH II 1.20 uIU/mL 06/08/2015 Cbc With Differential Ord2 WBC 5.8 K/uL 06/08/2015 Cbc With Differential Ord2 LYM 1.8 K/uL 06/08/2015 Cbc With Differential Ord2 LYM% 30.9 % 06/08/2015 Cbc With Differential Ord2 NEUT/GRAN 3.6 K/uL 06/08/2015 Cbc With Differential Ord2 NEUT/GRAN % 61.8 % 06/08/2015 Cbc With Differential Ord2 MID 0.4 K/uL 06/08/2015 Cbc With Differential Ord2 MID% 7.3 % 06/08/2015 Cbc With Differential Ord2 RBC 4.83 M/uL 06/08/2015 Cbc With Differential Ord2 HGB 14.4 g/dL 06/08/2015 Cbc With Differential Ord2 HCT 43.2 % 06/08/2015 Cbc With Differential Ord2 MCV 90 fL 06/08/2015 Cbc With Differential Ord2 MCH 30 pg 06/08/2015 Cbc With Differential Ord2 MCHC 33 g/dL 06/08/2015 Cbc With Differential Ord2 PLT 503 K/uL 06/08/2015 Cbc With Differential Ord2 RDW 14.4 % 06/08/2015 LYME EIA [id number] LYME EIA 0.24 04/25/2014 TULAREM AB [id number] TULAREM AB <1:20 04/24/2014 RMSF IFA [id number] IGG RMSF <1:16 04/24/2014 RMSF IFA [id number] IGM RMSF <1:10 04/24/2014 E CHAFF AB [id number] IGG E CHFF <1:16 04/24/2014 E CHAFF AB [id number] IGM E CHFF <1:10 04/24/2014 ICT OCCULT [id number] ICT OCCULT NEG 10/11/2013 Review of Systems System Result Effective Dates Constitutional No recent illness 02/16/2017 Constitutional No anorexia 02/16/2017 Constitutional No night sweats 02/16/2017 Constitutional No chills 02/16/2017 Constitutional No diaphoresis 02/16/2017 Constitutional No fatigue 02/16/2017 Constitutional No fever 02/16/2017 Constitutional No insomnia 02/16/2017 Constitutional No malaise 02/16/2017 Constitutional No weight loss 02/16/2017 Constitutional No weight gain 02/16/2017 Eyes No eye discharge 02/16/2017 Eyes No eye erythema 02/16/2017 Ears/Nose/Throat/Neck No dizziness 02/16/2017 Ears/Nose/Throat/Neck No headache 02/16/2017 Cardiovascular No chest pain/pressure 02/16/2017 Respiratory No cough 02/16/2017 Gastrointestinal No constipation 02/16/2017 Gastrointestinal No diarrhea 02/16/2017 Gastrointestinal No nausea 02/16/2017 Gastrointestinal No vomiting 02/16/2017 Genitourinary/Nephrology No dysuria 02/16/2017 Genitourinary/Nephrology urinary urgency 02/16/2017 Genitourinary/Nephrology No urinary frequency 02/16/2017 Musculoskeletal No joint complaint 02/16/2017 Dermatologic No rash 02/16/2017 Dermatologic No sores 02/16/2017 Neurologic No alteration of consciousness 02/16/2017 Constitutional No recent illness 02/06/2017 Constitutional anorexia 02/06/2017 Constitutional No night sweats 02/06/2017 Constitutional No chills 02/06/2017 Constitutional No diaphoresis 02/06/2017 Constitutional No fatigue 02/06/2017 Constitutional No fever 02/06/2017 Constitutional No malaise 02/06/2017 Eyes No eye discharge 02/06/2017 Eyes No eye erythema 02/06/2017 Ears/Nose/Throat/Neck No dizziness 02/06/2017 Ears/Nose/Throat/Neck No headache 02/06/2017 Cardiovascular No chest pain/pressure 02/06/2017 Cardiovascular No dyspnea 02/06/2017 Respiratory No cough 02/06/2017 Gastrointestinal No abdominal pain 02/06/2017 Gastrointestinal No constipation 02/06/2017 Gastrointestinal No diarrhea 02/06/2017 Genitourinary/Nephrology No dysuria 02/06/2017 Musculoskeletal No joint complaint 02/06/2017 Dermatologic No rash 02/06/2017 Neurologic No alteration of consciousness 02/06/2017 Psychiatric No suicidality 02/06/2017 Endocrine No dry or coarse skin 02/06/2017 Constitutional No recent illness 11/17/2016 Constitutional No chills 11/17/2016 Constitutional No diaphoresis 11/17/2016 Constitutional No fever 11/17/2016 Eyes No eye erythema 11/17/2016 Ears/Nose/Throat/Neck No nasal allergies 11/17/2016 Ears/Nose/Throat/Neck No nasal discharge 11/17/2016 Cardiovascular No chest pain/pressure 11/17/2016 Cardiovascular No dyspnea 11/17/2016 Respiratory No cough 11/17/2016 Respiratory No dyspnea 11/17/2016 Gastrointestinal No constipation 11/17/2016 Gastrointestinal No diarrhea 11/17/2016 Musculoskeletal No joint complaint 11/17/2016 Neurologic No alteration of consciousness 11/17/2016 Neurologic No mental status change 11/17/2016 Constitutional No recent illness 10/12/2016 Constitutional anorexia 10/12/2016 Constitutional No night sweats 10/12/2016 Constitutional No chills 10/12/2016 Constitutional No diaphoresis 10/12/2016 Constitutional No fatigue 10/12/2016 Constitutional No fever 10/12/2016 Constitutional No malaise 10/12/2016 Eyes No eye discharge 10/12/2016 Eyes No eye erythema 10/12/2016 Ears/Nose/Throat/Neck No dizziness 10/12/2016 Ears/Nose/Throat/Neck No headache 10/12/2016 Cardiovascular No chest pain/pressure 10/12/2016 Cardiovascular No dyspnea 10/12/2016 Respiratory No cough 10/12/2016 Gastrointestinal No abdominal pain 10/12/2016 Gastrointestinal No constipation 10/12/2016 Gastrointestinal No diarrhea 10/12/2016 Genitourinary/Nephrology No dysuria 10/12/2016 Musculoskeletal No joint complaint 10/12/2016 Dermatologic No rash 10/12/2016 Neurologic No alteration of consciousness 10/12/2016 Psychiatric No suicidality 10/12/2016 Endocrine No dry or coarse skin 10/12/2016 Constitutional recent illness 09/05/2016 Constitutional No anorexia 09/05/2016 Constitutional No night sweats 09/05/2016 Constitutional No chills 09/05/2016 Constitutional No diaphoresis 09/05/2016 Constitutional fatigue 09/05/2016 Constitutional No fever 09/05/2016 Constitutional No insomnia 09/05/2016 Constitutional No malaise 09/05/2016 Constitutional No weight loss 09/05/2016 Constitutional No weight gain 09/05/2016 Eyes No eye erythema 09/05/2016 Eyes No eye discharge 09/05/2016 Ears/Nose/Throat/Neck nasal discharge 09/05/2016 Ears/Nose/Throat/Neck otalgia 09/05/2016 Ears/Nose/Throat/Neck sinus congestion 09/05/2016 Ears/Nose/Throat/Neck sore throat 09/05/2016 Respiratory cough 09/05/2016 Respiratory No productive sputum 09/05/2016 Gastrointestinal No abdominal pain 09/05/2016 Gastrointestinal No constipation 09/05/2016 Gastrointestinal No diarrhea 09/05/2016 Genitourinary/Nephrology No dysuria 09/05/2016 Musculoskeletal No joint complaint 09/05/2016 Dermatologic No rash 09/05/2016 Neurologic No alteration of consciousness 09/05/2016 Psychiatric anxiety 09/05/2016 Constitutional No recent illness 06/21/2016 Constitutional anorexia 06/21/2016 Constitutional No night sweats 06/21/2016 Constitutional No chills 06/21/2016 Constitutional No diaphoresis 06/21/2016 Constitutional No fatigue 06/21/2016 Constitutional No fever 06/21/2016 Constitutional No malaise 06/21/2016 Eyes No eye discharge 06/21/2016 Eyes No eye erythema 06/21/2016 Ears/Nose/Throat/Neck No dizziness 06/21/2016 Ears/Nose/Throat/Neck No headache 06/21/2016 Cardiovascular No chest pain/pressure 06/21/2016 Cardiovascular No dyspnea 06/21/2016 Respiratory No cough 06/21/2016 Gastrointestinal No abdominal pain 06/21/2016 Gastrointestinal No constipation 06/21/2016 Gastrointestinal No diarrhea 06/21/2016 Genitourinary/Nephrology No dysuria 06/21/2016 Musculoskeletal No joint complaint 06/21/2016 Dermatologic No rash 06/21/2016 Neurologic No alteration of consciousness 06/21/2016 Psychiatric No suicidality 06/21/2016 Endocrine No dry or coarse skin 06/21/2016 Constitutional No recent illness 05/24/2016 Constitutional anorexia 05/24/2016 Constitutional No night sweats 05/24/2016 Constitutional No chills 05/24/2016 Constitutional No diaphoresis 05/24/2016 Constitutional No fatigue 05/24/2016 Constitutional No fever 05/24/2016 Constitutional No malaise 05/24/2016 Eyes No eye discharge 05/24/2016 Eyes No eye erythema 05/24/2016 Ears/Nose/Throat/Neck No dizziness 05/24/2016 Ears/Nose/Throat/Neck No headache 05/24/2016 Cardiovascular No chest pain/pressure 05/24/2016 Cardiovascular No dyspnea 05/24/2016 Respiratory No cough 05/24/2016 Gastrointestinal No abdominal pain 05/24/2016 Gastrointestinal No constipation 05/24/2016 Gastrointestinal No diarrhea 05/24/2016 Genitourinary/Nephrology No dysuria 05/24/2016 Musculoskeletal No joint complaint 05/24/2016 Dermatologic No rash 05/24/2016 Neurologic No alteration of consciousness 05/24/2016 Psychiatric No suicidality 05/24/2016 Endocrine No dry or coarse skin 05/24/2016 Constitutional No recent illness 05/10/2016 Constitutional fatigue 05/10/2016 Psychiatric anxiety 05/10/2016 Psychiatric depression 05/10/2016 Constitutional insomnia 05/10/2016 Constitutional No recent illness 05/03/2016 Constitutional anorexia 05/03/2016 Constitutional No night sweats 05/03/2016 Constitutional No chills 05/03/2016 Constitutional No diaphoresis 05/03/2016 Constitutional No fatigue 05/03/2016 Constitutional No fever 05/03/2016 Constitutional insomnia 05/03/2016 Constitutional No malaise 05/03/2016 Constitutional weight loss 05/03/2016 Constitutional No weight gain 05/03/2016 Eyes No eye discharge 05/03/2016 Eyes No eye erythema 05/03/2016 Ears/Nose/Throat/Neck No dizziness 05/03/2016 Ears/Nose/Throat/Neck No headache 05/03/2016 Cardiovascular No chest pain/pressure 05/03/2016 Cardiovascular No dyspnea 05/03/2016 Respiratory No cough 05/03/2016 Gastrointestinal No abdominal pain 05/03/2016 Gastrointestinal No constipation 05/03/2016 Gastrointestinal No diarrhea 05/03/2016 Genitourinary/Nephrology No dysuria 05/03/2016 Musculoskeletal No joint complaint 05/03/2016 Dermatologic No rash 05/03/2016 Neurologic No alteration of consciousness 05/03/2016 Endocrine No dry or coarse skin 05/03/2016 Psychiatric No suicidality 05/03/2016 Constitutional No recent illness 11/13/2015 Constitutional No anorexia 11/13/2015 Constitutional No night sweats 11/13/2015 Constitutional No chills 11/13/2015 Constitutional No diaphoresis 11/13/2015 Constitutional fatigue 11/13/2015 Constitutional No fever 11/13/2015 Constitutional insomnia 11/13/2015 Constitutional No malaise 11/13/2015 Constitutional No weight loss 11/13/2015 Constitutional No weight gain 11/13/2015 Constitutional No obesity 11/13/2015 Eyes No vision change 11/13/2015 Eyes No blindness 11/13/2015 Eyes No eye discharge 11/13/2015 Eyes No eye erythema 11/13/2015 Ears/Nose/Throat/Neck No nasal allergies 11/13/2015 Ears/Nose/Throat/Neck No nasal discharge 11/13/2015 Ears/Nose/Throat/Neck No otalgia 11/13/2015 Ears/Nose/Throat/Neck No otitis media 11/13/2015 Ears/Nose/Throat/Neck No sore throat 11/13/2015 Ears/Nose/Throat/Neck headache 11/13/2015 Cardiovascular No chest pain/pressure 11/13/2015 Cardiovascular No dyspnea 11/13/2015 Cardiovascular No edema 11/13/2015 Respiratory No cigarette smoking 11/13/2015 Respiratory No chest congestion 11/13/2015 Respiratory No chest tightness 11/13/2015 Respiratory No cough 11/13/2015 Respiratory No dyspnea 11/13/2015 Respiratory No dyspnea on exertion 11/13/2015 Gastrointestinal No constipation 11/13/2015 Gastrointestinal No diarrhea 11/13/2015 Gastrointestinal No abdominal pain 11/13/2015 Genitourinary/Nephrology No dysuria 11/13/2015 Genitourinary/Nephrology urinary incontinence 11/13/2015 Genitourinary/Nephrology No urinary retention/hesitancy 11/13/2015 Genitourinary/Nephrology No urinary frequency 11/13/2015 Genitourinary/Nephrology No urinary urgency 11/13/2015 Musculoskeletal No muscle weakness 11/13/2015 Musculoskeletal joint complaint 11/13/2015 Musculoskeletal No myalgias 11/13/2015 Dermatologic No rash 11/13/2015 Dermatologic No sores 11/13/2015 Psychiatric anxiety 11/13/2015 Psychiatric depression 11/13/2015 Constitutional recent illness 07/23/2015 Constitutional No anorexia 07/23/2015 Constitutional No night sweats 07/23/2015 Constitutional No chills 07/23/2015 Constitutional No diaphoresis 07/23/2015 Constitutional fatigue 07/23/2015 Constitutional No fever 07/23/2015 Constitutional No insomnia 07/23/2015 Constitutional No malaise 07/23/2015 Eyes No eye discharge 07/23/2015 Eyes No eye erythema 07/23/2015 Ears/Nose/Throat/Neck No dizziness 07/23/2015 Ears/Nose/Throat/Neck headache 07/23/2015 Ears/Nose/Throat/Neck No nasal allergies 07/23/2015 Ears/Nose/Throat/Neck nasal discharge 07/23/2015 Ears/Nose/Throat/Neck No otalgia 07/23/2015 Ears/Nose/Throat/Neck sore throat 07/23/2015 Cardiovascular No chest pain/pressure 07/23/2015 Respiratory cough 07/23/2015 Respiratory productive sputum 07/23/2015 Gastrointestinal No abdominal pain 07/23/2015 Gastrointestinal No constipation 07/23/2015 Gastrointestinal No diarrhea 07/23/2015 Genitourinary/Nephrology No dysuria 07/23/2015 Musculoskeletal No joint complaint 07/23/2015 Dermatologic No rash 07/23/2015 Dermatologic No sores 07/23/2015 Neurologic No alteration of consciousness 07/23/2015 Constitutional No recent illness 07/06/2015 Constitutional No anorexia 07/06/2015 Constitutional No night sweats 07/06/2015 Constitutional No chills 07/06/2015 Constitutional No diaphoresis 07/06/2015 Constitutional fatigue 07/06/2015 Constitutional No fever 07/06/2015 Constitutional insomnia 07/06/2015 Constitutional malaise 07/06/2015 Eyes No eye discharge 07/06/2015 Eyes No eye erythema 07/06/2015 Ears/Nose/Throat/Neck No dizziness 07/06/2015 Ears/Nose/Throat/Neck No headache 07/06/2015 Cardiovascular No chest pain/pressure 07/06/2015 Cardiovascular No dyspnea 07/06/2015 Cardiovascular No edema 07/06/2015 Respiratory No productive sputum 07/06/2015 Respiratory No chest congestion 07/06/2015 Respiratory No cough 07/06/2015 Gastrointestinal No abdominal pain 07/06/2015 Gastrointestinal No constipation 07/06/2015 Gastrointestinal No diarrhea 07/06/2015 Genitourinary/Nephrology No dysuria 07/06/2015 Musculoskeletal No joint complaint 07/06/2015 Dermatologic No rash 07/06/2015 Neurologic No alteration of consciousness 07/06/2015 Psychiatric anxiety 07/06/2015 Psychiatric depression 07/06/2015 Constitutional No recent illness 05/26/2015 Constitutional No anorexia 05/26/2015 Constitutional No night sweats 05/26/2015 Constitutional No chills 05/26/2015 Constitutional No diaphoresis 05/26/2015 Constitutional fatigue 05/26/2015 Constitutional No fever 05/26/2015 Constitutional insomnia 05/26/2015 Constitutional No malaise 05/26/2015 Constitutional No weight loss 05/26/2015 Constitutional weight gain 05/26/2015 Eyes No eye discharge 05/26/2015 Eyes No eye erythema 05/26/2015 Ears/Nose/Throat/Neck No dizziness 05/26/2015 Ears/Nose/Throat/Neck No headache 05/26/2015 Cardiovascular No chest pain/pressure 05/26/2015 Cardiovascular No edema 05/26/2015 Cardiovascular No dyspnea 05/26/2015 Respiratory No productive sputum 05/26/2015 Respiratory No chest congestion 05/26/2015 Respiratory No cough 05/26/2015 Gastrointestinal No abdominal pain 05/26/2015 Gastrointestinal No constipation 05/26/2015 Gastrointestinal No diarrhea 05/26/2015 Genitourinary/Nephrology No dysuria 05/26/2015 Musculoskeletal No joint complaint 05/26/2015 Dermatologic No rash 05/26/2015 Neurologic No alteration of consciousness 05/26/2015 Psychiatric anxiety 05/26/2015 Psychiatric depression 05/26/2015 Endocrine No dry or coarse skin 05/26/2015 Constitutional No recent illness 02/16/2015 Constitutional No anorexia 02/16/2015 Constitutional No night sweats 02/16/2015 Constitutional No chills 02/16/2015 Constitutional No diaphoresis 02/16/2015 Constitutional No insomnia 02/16/2015 Constitutional No fever 02/16/2015 Constitutional No fatigue 02/16/2015 Constitutional No malaise 02/16/2015 Constitutional No weight loss 02/16/2015 Constitutional No weight gain 02/16/2015 Constitutional No recent illness 12/10/2014 Constitutional No insomnia 12/10/2014 Ears/Nose/Throat/Neck No nasal allergies 12/10/2014 Cardiovascular No chest pain/pressure 12/10/2014 Cardiovascular No dyspnea 12/10/2014 Respiratory No chest congestion 12/10/2014 Respiratory No cough 12/10/2014 Respiratory No cigarette smoking 12/10/2014 Gastrointestinal No constipation 12/10/2014 Gastrointestinal No diarrhea 12/10/2014 Gastrointestinal No gastroesophageal reflux 12/10/2014 Gastrointestinal No abdominal pain 12/10/2014 Genitourinary/Nephrology No dysuria 12/10/2014 Psychiatric anxiety 12/10/2014 Psychiatric No depression 12/10/2014 Neurologic No dizziness 12/10/2014 Neurologic No headache 12/10/2014 Neurologic No neck pain 12/10/2014 Neurologic No syncope 12/10/2014 Dermatologic No rash 12/10/2014 Dermatologic No scar 12/10/2014 Musculoskeletal joint complaint 12/10/2014 Eyes No blindness 12/10/2014 Eyes No vision change 12/10/2014 Constitutional No chills 12/10/2014 Constitutional No fever 12/10/2014 Gastrointestinal No nausea 12/10/2014 Gastrointestinal No vomiting 12/10/2014 Musculoskeletal No stiffness 12/10/2014 Musculoskeletal No swelling 12/10/2014 Musculoskeletal No arthralgia(s) 12/10/2014 Dermatologic No sores 12/10/2014 Neurologic No ataxia 12/10/2014 Constitutional No recent illness 10/16/2014 Constitutional No chills 10/16/2014 Constitutional No fatigue 10/16/2014 Constitutional No fever 10/16/2014 Constitutional No malaise 10/16/2014 Eyes No eye discharge 10/16/2014 Eyes No eye erythema 10/16/2014 Ears/Nose/Throat/Neck No dizziness 10/16/2014 Ears/Nose/Throat/Neck No headache 10/16/2014 Cardiovascular No chest pain/pressure 10/16/2014 Respiratory No cough 10/16/2014 Gastrointestinal No constipation 10/16/2014 Gastrointestinal No diarrhea 10/16/2014 Gastrointestinal No nausea 10/16/2014 Gastrointestinal No vomiting 10/16/2014 Genitourinary/Nephrology No dysuria 10/16/2014 Genitourinary/Nephrology urinary urgency 10/16/2014 Genitourinary/Nephrology No urinary frequency 10/16/2014 Genitourinary/Nephrology urinary incontinence 10/16/2014 Musculoskeletal No joint complaint 10/16/2014 Dermatologic No rash 10/16/2014 Dermatologic No sores 10/16/2014 Neurologic No alteration of consciousness 10/16/2014 Genitourinary/Nephrology pelvic pain 10/16/2014 Psychiatric No anxiety 10/16/2014 Psychiatric No depression 10/16/2014 Genitourinary/Nephrology No dysuria 10/09/2014 Genitourinary/Nephrology urinary urgency 10/09/2014 Genitourinary/Nephrology No urinary frequency 10/09/2014 Genitourinary/Nephrology urinary incontinence 10/09/2014 Gastrointestinal No constipation 10/09/2014 Gastrointestinal No diarrhea 10/09/2014 Gastrointestinal No vomiting 10/09/2014 Gastrointestinal No nausea 10/09/2014 Constitutional No recent illness 10/09/2014 Constitutional No anorexia 10/09/2014 Constitutional No night sweats 10/09/2014 Constitutional No chills 10/09/2014 Constitutional No diaphoresis 10/09/2014 Constitutional No fever 10/09/2014 Constitutional No fatigue 10/09/2014 Constitutional No insomnia 10/09/2014 Constitutional No malaise 10/09/2014 Constitutional No weight loss 10/09/2014 Constitutional No weight gain 10/09/2014 Eyes No eye discharge 10/09/2014 Eyes No eye erythema 10/09/2014 Ears/Nose/Throat/Neck No dizziness 10/09/2014 Ears/Nose/Throat/Neck No headache 10/09/2014 Cardiovascular No chest pain/pressure 10/09/2014 Respiratory No cough 10/09/2014 Musculoskeletal No joint complaint 10/09/2014 Dermatologic No rash 10/09/2014 Dermatologic No sores 10/09/2014 Neurologic No alteration of consciousness 10/09/2014 Constitutional No chills 08/26/2014 Constitutional No fever 08/26/2014 Eyes No vision change 08/26/2014 Ears/Nose/Throat/Neck No dizziness 08/26/2014 Respiratory No chest congestion 08/26/2014 Respiratory No cough 08/26/2014 Gastrointestinal No diarrhea 08/26/2014 Gastrointestinal No nausea 08/26/2014 Gastrointestinal No vomiting 08/26/2014 Musculoskeletal No stiffness 08/26/2014 Musculoskeletal No swelling 08/26/2014 Musculoskeletal No arthralgia(s) 08/26/2014 Dermatologic No rash 08/26/2014 Dermatologic No sores 08/26/2014 Neurologic No ataxia 08/26/2014 Neurologic No dizziness 08/26/2014 Psychiatric anxiety 08/26/2014 Psychiatric depression 08/26/2014 Constitutional No recent illness 05/16/2014 Constitutional No anorexia 05/16/2014 Constitutional No night sweats 05/16/2014 Constitutional No chills 05/16/2014 Constitutional No diaphoresis 05/16/2014 Constitutional No fatigue 05/16/2014 Constitutional No fever 05/16/2014 Constitutional No insomnia 05/16/2014 Constitutional No malaise 05/16/2014 Constitutional No weight loss 05/16/2014 Constitutional No weight gain 05/16/2014 Eyes No eye erythema 05/16/2014 Eyes No eye discharge 05/16/2014 Eyes No vision change 05/16/2014 Cardiovascular No chest pain/pressure 05/16/2014 Ears/Nose/Throat/Neck No dizziness 05/16/2014 Ears/Nose/Throat/Neck No nasal discharge 05/16/2014 Gastrointestinal No vomiting 05/16/2014 Gastrointestinal No nausea 05/16/2014 Respiratory No cough 05/16/2014 Dermatologic No sores 05/16/2014 Dermatologic No rash 05/16/2014 Constitutional No chills 04/23/2014 Constitutional No fever 04/23/2014 Eyes No vision change 04/23/2014 Ears/Nose/Throat/Neck No dizziness 04/23/2014 Respiratory No chest congestion 04/23/2014 Respiratory No cough 04/23/2014 Gastrointestinal No diarrhea 04/23/2014 Gastrointestinal No nausea 04/23/2014 Gastrointestinal No vomiting 04/23/2014 Musculoskeletal No stiffness 04/23/2014 Musculoskeletal No swelling 04/23/2014 Musculoskeletal No arthralgia(s) 04/23/2014 Dermatologic No rash 04/23/2014 Dermatologic No sores 04/23/2014 Neurologic No ataxia 04/23/2014 Neurologic No dizziness 04/23/2014 Psychiatric anxiety 04/23/2014 Psychiatric depression 04/23/2014 Constitutional recent illness 01/21/2014 Constitutional No anorexia 01/21/2014 Constitutional No night sweats 01/21/2014 Constitutional chills 01/21/2014 Constitutional diaphoresis 01/21/2014 Constitutional No fatigue 01/21/2014 Constitutional fever 01/21/2014 Constitutional No insomnia 01/21/2014 Constitutional No malaise 01/21/2014 Eyes No eye erythema 01/21/2014 Eyes No eye discharge 01/21/2014 Ears/Nose/Throat/Neck No headache 01/21/2014 Ears/Nose/Throat/Neck nasal allergies 01/21/2014 Ears/Nose/Throat/Neck No nasal discharge 01/21/2014 Ears/Nose/Throat/Neck otalgia 01/21/2014 Ears/Nose/Throat/Neck No sinus congestion 01/21/2014 Ears/Nose/Throat/Neck sore throat 01/21/2014 Cardiovascular No chest pain/pressure 01/21/2014 Respiratory No productive sputum 01/21/2014 Respiratory cough 01/21/2014 Respiratory chest congestion 01/21/2014 Respiratory dyspnea on exertion 01/21/2014 Gastrointestinal No abdominal pain 01/21/2014 Gastrointestinal No diarrhea 01/21/2014 Gastrointestinal No constipation 01/21/2014 Gastrointestinal No vomiting 01/21/2014 Gastrointestinal No nausea 01/21/2014 Genitourinary/Nephrology No dysuria 01/21/2014 Musculoskeletal No joint complaint 01/21/2014 Dermatologic No rash 01/21/2014 Dermatologic No sores 01/21/2014 Neurologic No alteration of consciousness 01/21/2014 Constitutional No chills 12/05/2013 Constitutional No fever 12/05/2013 Eyes No vision change 12/05/2013 Ears/Nose/Throat/Neck No dizziness 12/05/2013 Respiratory No chest congestion 12/05/2013 Respiratory No cough 12/05/2013 Gastrointestinal No diarrhea 12/05/2013 Gastrointestinal No nausea 12/05/2013 Gastrointestinal No vomiting 12/05/2013 Musculoskeletal No stiffness 12/05/2013 Musculoskeletal No swelling 12/05/2013 Musculoskeletal No arthralgia(s) 12/05/2013 Dermatologic No rash 12/05/2013 Dermatologic No sores 12/05/2013 Neurologic No ataxia 12/05/2013 Neurologic No dizziness 12/05/2013 Psychiatric anxiety 12/05/2013 Psychiatric depression 12/05/2013 Constitutional No recent illness 11/05/2013 Constitutional No chills 11/05/2013 Constitutional fatigue 11/05/2013 Constitutional No fever 11/05/2013 Constitutional No insomnia 11/05/2013 Constitutional No malaise 11/05/2013 Psychiatric anxiety 11/05/2013 Psychiatric depression 11/05/2013 Gastrointestinal No hemorrhoids 11/05/2013 Gastrointestinal No abdominal pain 11/05/2013 Gastrointestinal No constipation 11/05/2013 Gastrointestinal No diarrhea 11/05/2013 Gastrointestinal No gastroesophageal reflux 11/05/2013 Gastrointestinal No melena 11/05/2013 Gastrointestinal No nausea 11/05/2013 Gastrointestinal No vomiting 11/05/2013 Musculoskeletal No stiffness 11/05/2013 Musculoskeletal No swelling 11/05/2013 Musculoskeletal No muscle weakness 11/05/2013 Musculoskeletal No myalgias 11/05/2013 Ears/Nose/Throat/Neck No dental pain 11/05/2013 Ears/Nose/Throat/Neck No dizziness 11/05/2013 Ears/Nose/Throat/Neck No dysphagia 11/05/2013 Ears/Nose/Throat/Neck No headache 11/05/2013 Ears/Nose/Throat/Neck No hearing loss 11/05/2013 Ears/Nose/Throat/Neck No nasal allergies 11/05/2013 Ears/Nose/Throat/Neck No sore throat 11/05/2013 Ears/Nose/Throat/Neck No postnasal drip 11/05/2013 Ears/Nose/Throat/Neck No sinus congestion 11/05/2013 Eyes No blindness 11/05/2013 Eyes No vision change 11/05/2013 Constitutional No chills 10/15/2013 Constitutional No fever 10/15/2013 Eyes No vision change 10/15/2013 Ears/Nose/Throat/Neck No dizziness 10/15/2013 Respiratory No chest congestion 10/15/2013 Respiratory No cough 10/15/2013 Gastrointestinal No diarrhea 10/15/2013 Gastrointestinal No nausea 10/15/2013 Gastrointestinal No vomiting 10/15/2013 Musculoskeletal No stiffness 10/15/2013 Musculoskeletal No swelling 10/15/2013 Musculoskeletal No arthralgia(s) 10/15/2013 Dermatologic No rash 10/15/2013 Dermatologic No sores 10/15/2013 Neurologic No ataxia 10/15/2013 Neurologic No dizziness 10/15/2013 Constitutional No chills 09/30/2013 Constitutional No fever 09/30/2013 Eyes No vision change 09/30/2013 Ears/Nose/Throat/Neck No dizziness 09/30/2013 Respiratory No chest congestion 09/30/2013 Respiratory No cough 09/30/2013 Gastrointestinal No diarrhea 09/30/2013 Gastrointestinal No nausea 09/30/2013 Gastrointestinal No vomiting 09/30/2013 Musculoskeletal No stiffness 09/30/2013 Musculoskeletal No swelling 09/30/2013 Musculoskeletal No arthralgia(s) 09/30/2013 Dermatologic No rash 09/30/2013 Dermatologic No sores 09/30/2013 Neurologic No ataxia 09/30/2013 Neurologic No dizziness 09/30/2013 Constitutional No chills 03/13/2013 Constitutional No fever 03/13/2013 Eyes No vision change 03/13/2013 Ears/Nose/Throat/Neck No dizziness 03/13/2013 Respiratory No chest congestion 03/13/2013 Respiratory No cough 03/13/2013 Gastrointestinal No diarrhea 03/13/2013 Gastrointestinal No nausea 03/13/2013 Gastrointestinal No vomiting 03/13/2013 Musculoskeletal No stiffness 03/13/2013 Musculoskeletal No swelling 03/13/2013 Musculoskeletal No arthralgia(s) 03/13/2013 Dermatologic No rash 03/13/2013 Dermatologic No sores 03/13/2013 Neurologic No ataxia 03/13/2013 Neurologic No dizziness 03/13/2013 Psychiatric anxiety 03/13/2013 Psychiatric depression 03/13/2013 Constitutional No chills 10/04/2012 Constitutional No fever 10/04/2012 Eyes No vision change 10/04/2012 Ears/Nose/Throat/Neck No dizziness 10/04/2012 Respiratory No chest congestion 10/04/2012 Respiratory No cough 10/04/2012 Gastrointestinal No diarrhea 10/04/2012 Gastrointestinal No nausea 10/04/2012 Gastrointestinal No vomiting 10/04/2012 Musculoskeletal No stiffness 10/04/2012 Musculoskeletal No swelling 10/04/2012 Musculoskeletal No arthralgia(s) 10/04/2012 Dermatologic No rash 10/04/2012 Dermatologic No sores 10/04/2012 Neurologic No ataxia 10/04/2012 Neurologic No dizziness 10/04/2012 Constitutional No fever 08/22/2011 Constitutional No chills 08/22/2011 Ears/Nose/Throat/Neck No dizziness 08/22/2011 Ears/Nose/Throat/Neck headache 08/22/2011 Cardiovascular No chest pain/pressure 08/22/2011 Gastrointestinal No vomiting 08/22/2011 Gastrointestinal No nausea 08/22/2011 Gastrointestinal No diarrhea 08/22/2011 Gastrointestinal No constipation 08/22/2011 Respiratory dyspnea 08/22/2011 Neurologic No dizziness 08/22/2011 Neurologic No headache 08/22/2011 Constitutional No fever 06/17/2011 Constitutional No chills 06/17/2011 Gastrointestinal No diarrhea 06/17/2011 Gastrointestinal No nausea 06/17/2011 Gastrointestinal No vomiting 06/17/2011 Respiratory No cough 06/17/2011 Respiratory No chest congestion 06/17/2011 Musculoskeletal No swelling 06/17/2011 Musculoskeletal No stiffness 06/17/2011 Musculoskeletal No arthralgia(s) 06/17/2011 Dermatologic No rash 06/17/2011 Dermatologic No sores 06/17/2011 Neurologic No dizziness 06/17/2011 Neurologic No ataxia 06/17/2011 Eyes No vision change 06/17/2011 Ears/Nose/Throat/Neck No dizziness 06/17/2011 Physical Exam Exam Name System Name Item Name Status Result Effective Dates Notes Full Exam - General 1994 Constitutional general appearance Overall: well developed 02/16/2017 None Full Exam - General 1994 Constitutional general appearance Overall: in no acute distress 02/16/2017 None Full Exam - General 1994 Constitutional general appearance Overall: well nourished 02/16/2017 None Full Exam - General 1994 Eyes pupils and irises Overall: pupils equal, round, reactive to light and accomodation 02/16/2017 None Full Exam - General 1994 Ears/Nose/Throat otoscopic exam Overall: external auditory canals clear 02/16/2017 None Full Exam - General 1994 Ears/Nose/Throat otoscopic exam Overall: tympanic membranes clear 02/16/2017 None Full Exam - General 1994 Ears/Nose/Throat oral cavity/pharynx/larynx Overall: oral mucosa clear 02/16/2017 None Full Exam - General 1994 Ears/Nose/Throat oral cavity/pharynx/larynx Overall: oropharyngeal mucosa clear 02/16/2017 None Full Exam - General 1994 Ears/Nose/Throat oral cavity/pharynx/larynx Overall: no masses 02/16/2017 None Full Exam - General 1994 Respiratory auscultation Overall: breath sounds clear bilaterally 02/16/2017 None Full Exam - General 1994 Respiratory respiratory effort/rhythm Overall: no retractions 02/16/2017 None Full Exam - General 1994 Respiratory respiratory effort/rhythm Overall: normal rate 02/16/2017 None Full Exam - General 1994 Cardiovascular extremities Overall: no clubbing 02/16/2017 None Full Exam - General 1994 Cardiovascular auscultation of heart Overall: regular rate 02/16/2017 None Full Exam - General 1994 Cardiovascular auscultation of heart Overall: normal heart sounds 02/16/2017 None Full Exam - General 1994 Abdomen abdominal exam Overall: no tenderness 02/16/2017 None Full Exam - General 1994 Abdomen abdominal exam Overall: normal bowel sounds 02/16/2017 None Full Exam - General 1994 Genitourinary labia and vagina Overall: no lesions 02/16/2017 None Full Exam - General 1994 Musculoskeletal head and neck Overall: head atraumatic 02/16/2017 None Full Exam - General 1994 Musculoskeletal head and neck Overall: cervical spine benign 02/16/2017 None Full Exam - General 1994 Neurologic gait Overall: no ataxia, no unsteadiness 02/16/2017 None Full Exam - General 1994 Neurologic cranial nerves Overall: crainial nerves 2 - 12 grossly intact 02/16/2017 None Full Exam - General 1994 Psychiatric orientation/consciousness Overall: oriented to person, place and time 02/16/2017 None Full Exam - General 1994 Psychiatric mood and affect Overall: normal mood and affect 02/16/2017 None Full Exam - General 1994 Genitourinary labia and vagina Vaginal discharge: malodorous 02/16/2017 None Full Exam - General 1994 Genitourinary labia and vagina Vaginal discharge: scant 02/16/2017 None Full Exam - General 1994 Genitourinary labia and vagina Vaginal discharge: resendiz 02/16/2017 None Full Exam - General 1994 Genitourinary adnexa/parametria Overall: surgically absent 02/16/2017 None Full Exam - General 1994 Genitourinary bladder Overall: no tenderness 02/16/2017 None Full Exam - General 1994 Constitutional general appearance Overall: well developed 02/06/2017 None Full Exam - General 1994 Constitutional general appearance Overall: in no acute distress 02/06/2017 None Full Exam - General 1994 Constitutional general appearance Overall: well nourished 02/06/2017 None Full Exam - General 1994 Constitutional general appearance Evidence of Distress: tearful 02/06/2017 None Full Exam - General 1994 Eyes pupils and irises Overall: pupils equal, round, reactive to light and accomodation 02/06/2017 None Full Exam - General 1994 Ears/Nose/Throat oral cavity/pharynx/larynx Overall: oral mucosa clear 02/06/2017 None Full Exam - General 1994 Ears/Nose/Throat oral cavity/pharynx/larynx Overall: oropharyngeal mucosa clear 02/06/2017 None Full Exam - General 1995 Ears/Nose/Throat oral cavity/pharynx/larynx Overall: no masses 02/06/2017 None Full Exam - General 1994 Respiratory auscultation Overall: breath sounds clear bilaterally 02/06/2017 None Full Exam - General 1994 Respiratory respiratory effort/rhythm Overall: no retractions 02/06/2017 None Full Exam - General 1994 Respiratory respiratory effort/rhythm Overall: normal rate 02/06/2017 None Full Exam - General 1994 Cardiovascular extremities Overall: no clubbing 02/06/2017 None Full Exam - General 1994 Cardiovascular auscultation of heart Overall: regular rate 02/06/2017 None Full Exam - General 1994 Cardiovascular auscultation of heart Overall: normal heart sounds 02/06/2017 None Full Exam - General 1994 Psychiatric orientation/consciousness Overall: oriented to person, place and time 02/06/2017 None Full Exam - General 1994 Psychiatric mood and affect Mood: depressed 02/06/2017 None Full Exam - General 1994 Constitutional general appearance Overall: well developed 11/17/2016 None Full Exam - General 1994 Constitutional general appearance Overall: in no acute distress 11/17/2016 None Full Exam - General 1994 Constitutional general appearance Overall: well nourished 11/17/2016 None Full Exam - General 1994 Eyes conjunctiva/eyelids Overall: conjunctiva clear 11/17/2016 None Full Exam - General 1994 Eyes conjunctiva/eyelids Overall: eyelids normal 11/17/2016 None Full Exam - General 1994 Eyes pupils and irises Overall: pupils equal, round, reactive to light and accomodation 11/17/2016 None Full Exam - General 1994 Ears/Nose/Throat lips/teeth/gingiva Overall: benign lips 11/17/2016 None Full Exam - General 1994 Ears/Nose/Throat oral cavity/pharynx/larynx Overall: oral mucosa clear 11/17/2016 None Full Exam - General 1994 Respiratory auscultation Overall: breath sounds clear bilaterally 11/17/2016 None Full Exam - General 1994 Respiratory respiratory effort/rhythm Overall: no retractions 11/17/2016 None Full Exam - General 1994 Respiratory respiratory effort/rhythm Overall: normal rate 11/17/2016 None Full Exam - General 1994 Cardiovascular extremities Overall: no clubbing 11/17/2016 None Full Exam - General 1994 Cardiovascular auscultation of heart Overall: regular rate 11/17/2016 None Full Exam - General 1994 Cardiovascular auscultation of heart Overall: normal heart sounds 11/17/2016 None Full Exam - General 1994 Musculoskeletal head and neck Overall: head atraumatic 11/17/2016 None Full Exam - General 1994 Psychiatric orientation/consciousness Overall: oriented to person, place and time 11/17/2016 None Full Exam - General 1994 Psychiatric mood and affect Overall: normal mood and affect 11/17/2016 None Full Exam - General 1994 Psychiatric appearance Overall: well-groomed, good eye contact 11/17/2016 None Full Exam - General 1994 Constitutional general appearance Overall: well developed 10/12/2016 None Full Exam - General 1994 Constitutional general appearance Overall: in no acute distress 10/12/2016 None Full Exam - General 1994 Constitutional general appearance Overall: well nourished 10/12/2016 None Full Exam - General 1994 Constitutional general appearance Evidence of Distress: tearful 10/12/2016 None Full Exam - General 1994 Eyes pupils and irises Overall: pupils equal, round, reactive to light and accomodation 10/12/2016 None Full Exam - General 1994 Ears/Nose/Throat oral cavity/pharynx/larynx Overall: oral mucosa clear 10/12/2016 None Full Exam - General 1994 Ears/Nose/Throat oral cavity/pharynx/larynx Overall: oropharyngeal mucosa clear 10/12/2016 None Full Exam - General 1994 Ears/Nose/Throat oral cavity/pharynx/larynx Overall: no masses 10/12/2016 None Full Exam - General 1994 Respiratory auscultation Overall: breath sounds clear bilaterally 10/12/2016 None Full Exam - General 1994 Respiratory respiratory effort/rhythm Overall: no retractions 10/12/2016 None Full Exam - General 1994 Respiratory respiratory effort/rhythm Overall: normal rate 10/12/2016 None Full Exam - General 1994 Cardiovascular extremities Overall: no clubbing 10/12/2016 None Full Exam - General 1994 Cardiovascular auscultation of heart Overall: regular rate 10/12/2016 None Full Exam - General 1994 Cardiovascular auscultation of heart Overall: normal heart sounds 10/12/2016 None Full Exam - General 1994 Abdomen abdominal exam Overall: normal bowel sounds 10/12/2016 None Full Exam - General 1994 Lymphatic neck nodes Overall: anterior cervical chain benign 10/12/2016 None Full Exam - General 1994 Lymphatic neck nodes Overall: posterior cervical chain benign 10/12/2016 None Full Exam - General 1994 Neurologic gait Overall: no ataxia, no unsteadiness 10/12/2016 None Full Exam - General 1994 Neurologic cranial nerves Overall: crainial nerves 2 - 12 grossly intact 10/12/2016 None Full Exam - General 1994 Psychiatric orientation/consciousness Overall: oriented to person, place and time 10/12/2016 None Full Exam - General 1994 Psychiatric mood and affect Mood: depressed 10/12/2016 None Full Exam - ENT Constitutional general appearance Overall: well nourished 09/05/2016 None Full Exam - ENT Constitutional general appearance Overall: well developed 09/05/2016 None Full Exam - ENT Constitutional general appearance Overall: in no acute distress 09/05/2016 None Full Exam - ENT Ears/Nose/Throat otoscopic exam Overall: external auditory canals normal 09/05/2016 None Full Exam - ENT Ears/Nose/Throat otoscopic exam Overall: tympanic membranes normal 09/05/2016 None Full Exam - ENT Ears/Nose/Throat oropharynx Overall: oral mucosa clear 09/05/2016 None Full Exam - ENT Face and Head palpation Overall: no sinus tenderness 09/05/2016 None Full Exam - ENT Respiratory inspection Overall: no retractions 09/05/2016 None Full Exam - ENT Respiratory inspection Overall: normal rate 09/05/2016 None Full Exam - ENT Respiratory auscultation Overall: breath sounds clear bilaterally 09/05/2016 None Full Exam - ENT Cardiovascular auscultation of heart Overall: regular rate 09/05/2016 None Full Exam - ENT Cardiovascular auscultation of heart Overall: normal heart sounds 09/05/2016 None Full Exam - ENT Lymphatic palpation of lymph nodes Overall: anterior cervical chain benign 09/05/2016 None Full Exam - ENT Lymphatic palpation of lymph nodes Overall: posterior cervical chain benign 09/05/2016 None Full Exam - ENT Neurologic orientation Overall: oriented to person, place and time 09/05/2016 None Full Exam - General 1994 Constitutional general appearance Overall: well developed 06/21/2016 None Full Exam - General 1994 Constitutional general appearance Overall: in no acute distress 06/21/2016 None Full Exam - General 1994 Constitutional general appearance Overall: well nourished 06/21/2016 None Full Exam - General 1994 Constitutional general appearance Evidence of Distress: tearful 06/21/2016 None Full Exam - General 1994 Eyes pupils and irises Overall: pupils equal, round, reactive to light and accomodation 06/21/2016 None Full Exam - General 1994 Ears/Nose/Throat oral cavity/pharynx/larynx Overall: oral mucosa clear 06/21/2016 None Full Exam - General 1994 Ears/Nose/Throat oral cavity/pharynx/larynx Overall: oropharyngeal mucosa clear 06/21/2016 None Full Exam - General 1994 Ears/Nose/Throat oral cavity/pharynx/larynx Overall: no masses 06/21/2016 None Full Exam - General 1994 Respiratory auscultation Overall: breath sounds clear bilaterally 06/21/2016 None Full Exam - General 1994 Respiratory respiratory effort/rhythm Overall: no retractions 06/21/2016 None Full Exam - General 1994 Respiratory respiratory effort/rhythm Overall: normal rate 06/21/2016 None Full Exam - General 1994 Cardiovascular extremities Overall: no clubbing 06/21/2016 None Full Exam - General 1994 Cardiovascular auscultation of heart Overall: regular rate 06/21/2016 None Full Exam - General 1994 Cardiovascular auscultation of heart Overall: normal heart sounds 06/21/2016 None Full Exam - General 1994 Abdomen abdominal exam Overall: normal bowel sounds 06/21/2016 None Full Exam - General 1994 Lymphatic neck nodes Overall: anterior cervical chain benign 06/21/2016 None Full Exam - General 1994 Lymphatic neck nodes Overall: posterior cervical chain benign 06/21/2016 None Full Exam - General 1994 Neurologic gait Overall: no ataxia, no unsteadiness 06/21/2016 None Full Exam - General 1994 Neurologic cranial nerves Overall: crainial nerves 2 - 12 grossly intact 06/21/2016 None Full Exam - General 1994 Psychiatric orientation/consciousness Overall: oriented to person, place and time 06/21/2016 None Full Exam - General 1994 Psychiatric mood and affect Mood: depressed 06/21/2016 None Full Exam - General 1994 Constitutional general appearance Overall: well developed 05/24/2016 None Full Exam - General 1994 Constitutional general appearance Overall: in no acute distress 05/24/2016 None Full Exam - General 1994 Constitutional general appearance Overall: well nourished 05/24/2016 None Full Exam - General 1994 Constitutional general appearance Evidence of Distress: tearful 05/24/2016 None Full Exam - General 1994 Eyes pupils and irises Overall: pupils equal, round, reactive to light and accomodation 05/24/2016 None Full Exam - General 1994 Ears/Nose/Throat oral cavity/pharynx/larynx Overall: oral mucosa clear 05/24/2016 None Full Exam - General 1994 Ears/Nose/Throat oral cavity/pharynx/larynx Overall: oropharyngeal mucosa clear 05/24/2016 None Full Exam - General 1994 Ears/Nose/Throat oral cavity/pharynx/larynx Overall: no masses 05/24/2016 None Full Exam - General 1994 Respiratory auscultation Overall: breath sounds clear bilaterally 05/24/2016 None Full Exam - General 1994 Respiratory respiratory effort/rhythm Overall: no retractions 05/24/2016 None Full Exam - General 1994 Respiratory respiratory effort/rhythm Overall: normal rate 05/24/2016 None Full Exam - General 1994 Cardiovascular extremities Overall: no clubbing 05/24/2016 None Full Exam - General 1994 Cardiovascular auscultation of heart Overall: regular rate 05/24/2016 None Full Exam - General 1994 Cardiovascular auscultation of heart Overall: normal heart sounds 05/24/2016 None Full Exam - General 1994 Abdomen abdominal exam Overall: normal bowel sounds 05/24/2016 None Full Exam - General 1994 Lymphatic neck nodes Overall: anterior cervical chain benign 05/24/2016 None Full Exam - General 1994 Lymphatic neck nodes Overall: posterior cervical chain benign 05/24/2016 None Full Exam - General 1994 Neurologic gait Overall: no ataxia, no unsteadiness 05/24/2016 None Full Exam - General 1994 Neurologic cranial nerves Overall: crainial nerves 2 - 12 grossly intact 05/24/2016 None Full Exam - General 1994 Psychiatric orientation/consciousness Overall: oriented to person, place and time 05/24/2016 None Full Exam - General 1994 Psychiatric mood and affect Mood: depressed 05/24/2016 None Full Exam - General 1994 Constitutional general appearance Overall: well nourished 05/10/2016 None Full Exam - General 1994 Constitutional general appearance Overall: well developed 05/10/2016 None Full Exam - General 1994 Constitutional general appearance Overall: in no acute distress 05/10/2016 None Full Exam - General 1994 Psychiatric orientation/consciousness Overall: oriented to person, place and time 05/10/2016 None Full Exam - General 1994 Psychiatric mood and affect Mood: happy 05/10/2016 None Full Exam - General 1994 Psychiatric mood and affect Overall: normal mood and affect 05/10/2016 None Full Exam - General 1994 Psychiatric behavior/psychomotor activity Overall: no tics, normal psychomotor activity 05/10/2016 None Full Exam - General 1994 Respiratory respiratory effort/rhythm Overall: normal rate 05/10/2016 None Full Exam - General 1994 Respiratory respiratory effort/rhythm Overall: no retractions 05/10/2016 None Full Exam - General 1994 Respiratory auscultation Overall: breath sounds clear bilaterally 05/10/2016 None Full Exam - General 1994 Cardiovascular auscultation of heart Overall: regular rate 05/10/2016 None Full Exam - General 1994 Constitutional general appearance Overall: well developed 05/03/2016 None Full Exam - General 1994 Constitutional general appearance Overall: in no acute distress 05/03/2016 None Full Exam - General 1994 Constitutional general appearance Overall: well nourished 05/03/2016 None Full Exam - General 1994 Constitutional general appearance Evidence of Distress: tearful 05/03/2016 None Full Exam - General 1994 Eyes pupils and irises Overall: pupils equal, round, reactive to light and accomodation 05/03/2016 None Full Exam - General 1994 Ears/Nose/Throat oral cavity/pharynx/larynx Overall: oral mucosa clear 05/03/2016 None Full Exam - General 1994 Ears/Nose/Throat oral cavity/pharynx/larynx Overall: oropharyngeal mucosa clear 05/03/2016 None Full Exam - General 1994 Ears/Nose/Throat oral cavity/pharynx/larynx Overall: no masses 05/03/2016 None Full Exam - General 1994 Respiratory auscultation Overall: breath sounds clear bilaterally 05/03/2016 None Full Exam - General 1994 Respiratory respiratory effort/rhythm Overall: no retractions 05/03/2016 None Full Exam - General 1994 Respiratory respiratory effort/rhythm Overall: normal rate 05/03/2016 None Full Exam - General 1994 Cardiovascular extremities Overall: no clubbing 05/03/2016 None Full Exam - General 1994 Cardiovascular auscultation of heart Overall: regular rate 05/03/2016 None Full Exam - General 1994 Cardiovascular auscultation of heart Overall: normal heart sounds 05/03/2016 None Full Exam - General 1994 Abdomen abdominal exam Overall: normal bowel sounds 05/03/2016 None Full Exam - General 1994 Lymphatic neck nodes Overall: anterior cervical chain benign 05/03/2016 None Full Exam - General 1994 Lymphatic neck nodes Overall: posterior cervical chain benign 05/03/2016 None Full Exam - General 1994 Neurologic gait Overall: no ataxia, no unsteadiness 05/03/2016 None Full Exam - General 1994 Neurologic cranial nerves Overall: crainial nerves 2 - 12 grossly intact 05/03/2016 None Full Exam - General 1994 Psychiatric orientation/consciousness Overall: oriented to person, place and time 05/03/2016 None Full Exam - General 1994 Psychiatric mood and affect Mood: depressed 05/03/2016 None Full Exam - General 1994 Constitutional general appearance Development: well developed 11/13/2015 None Full Exam - General 1994 Constitutional general appearance Development: appears stated age 0411/13/2015 None Full Exam - General 1994 Constitutional general appearance Overall: well developed 11/13/2015 None Full Exam - General 1994 Constitutional general appearance Overall: in no acute distress 11/13/2015 None Full Exam - General 1994 Constitutional general appearance Overall: well nourished 11/13/2015 None Full Exam - General 1994 Constitutional general appearance Hygiene/Attention to Grooming: good hygiene 11/13/2015 None Full Exam - General 1994 Eyes conjunctiva/eyelids Overall: conjunctiva clear 11/13/2015 None Full Exam - General 1994 Eyes conjunctiva/eyelids Overall: cornea clear 11/13/2015 None Full Exam - General 1994 Eyes conjunctiva/eyelids Overall: eyelids normal 11/13/2015 None Full Exam - General 1994 Eyes pupils and irises Overall: pupils equal, round, reactive to light and accomodation 11/13/2015 None Full Exam - General 1994 Ears/Nose/Throat otoscopic exam Overall: external auditory canals clear 11/13/2015 None Full Exam - General 1994 Ears/Nose/Throat otoscopic exam Overall: tympanic membranes clear 11/13/2015 None Full Exam - General 1994 Ears/Nose/Throat lips/teeth/gingiva Overall: benign lips 11/13/2015 None Full Exam - General 1994 Ears/Nose/Throat lips/teeth/gingiva Overall: normal dentition 11/13/2015 None Full Exam - General 1994 Ears/Nose/Throat oral cavity/pharynx/larynx Overall: oral mucosa clear 11/13/2015 None Full Exam - General 1994 Ears/Nose/Throat oral cavity/pharynx/larynx Overall: oropharyngeal mucosa clear 11/13/2015 None Full Exam - General 1994 Ears/Nose/Throat oral cavity/pharynx/larynx Overall: no masses 11/13/2015 None Full Exam - General 1994 Respiratory auscultation Overall: breath sounds clear bilaterally 11/13/2015 None Full Exam - General 1994 Respiratory respiratory effort/rhythm Overall: no retractions 11/13/2015 None Full Exam - General 1994 Respiratory respiratory effort/rhythm Overall: normal rate 11/13/2015 None Full Exam - General 1994 Cardiovascular extremities Overall: no clubbing 11/13/2015 None Full Exam - General 1994 Cardiovascular auscultation of heart Overall: regular rate 11/13/2015 None Full Exam - General 1994 Cardiovascular auscultation of heart Overall: normal heart sounds 11/13/2015 None Full Exam - General 1994 Neurologic gait Overall: no ataxia, no unsteadiness 11/13/2015 None Full Exam - General 1994 Neurologic cranial nerves Overall: crainial nerves 2 - 12 grossly intact 11/13/2015 None Full Exam - General 1994 Psychiatric orientation/consciousness Overall: oriented to person, place and time 11/13/2015 None Full Exam - General 1994 Psychiatric mood and affect Overall: normal mood and affect 11/13/2015 None Full Exam - General 1994 Abdomen abdominal exam Overall: no tenderness 11/13/2015 None Full Exam - General 1994 Abdomen abdominal exam Overall: normal bowel sounds 11/13/2015 None Full Exam - General 1994 Lymphatic neck nodes Overall: anterior cervical chain benign 11/13/2015 None Full Exam - General 1994 Lymphatic neck nodes Overall: posterior cervical chain benign 11/13/2015 None Full Exam - General 1994 Integument inspection of skin Overall: few scattered moles, no gross abnormalities 11/13/2015 None Full Exam - ENT Constitutional general appearance Overall: well nourished 07/23/2015 None Full Exam - ENT Constitutional general appearance Overall: well developed 07/23/2015 None Full Exam - ENT Constitutional general appearance Overall: in no acute distress 07/23/2015 None Full Exam - ENT Ears/Nose/Throat otoscopic exam Overall: external auditory canals normal 07/23/2015 None Full Exam - ENT Ears/Nose/Throat otoscopic exam Overall: tympanic membranes normal 07/23/2015 None Full Exam - ENT Ears/Nose/Throat oropharynx Overall: oral mucosa clear 07/23/2015 None Full Exam - ENT Face and Head palpation Overall: no sinus tenderness 07/23/2015 None Full Exam - ENT Respiratory inspection Overall: no retractions 07/23/2015 None Full Exam - ENT Respiratory inspection Overall: normal rate 07/23/2015 None Full Exam - ENT Respiratory auscultation Overall: breath sounds clear bilaterally 07/23/2015 None Full Exam - ENT Cardiovascular auscultation of heart Overall: regular rate 07/23/2015 None Full Exam - ENT Cardiovascular auscultation of heart Overall: normal heart sounds 07/23/2015 None Full Exam - ENT Lymphatic palpation of lymph nodes Overall: anterior cervical chain benign 07/23/2015 None Full Exam - ENT Lymphatic palpation of lymph nodes Overall: posterior cervical chain benign 07/23/2015 None Full Exam - ENT Neurologic orientation Overall: oriented to person, place and time 07/23/2015 None Full Exam - General 1994 Constitutional general appearance Overall: well developed 07/06/2015 None Full Exam - General 1994 Constitutional general appearance Overall: in no acute distress 07/06/2015 None Full Exam - General 1994 Constitutional general appearance Overall: well nourished 07/06/2015 None Full Exam - General 1994 Constitutional general appearance Evidence of Distress: tearful 07/06/2015 None Full Exam - General 1994 Eyes pupils and irises Overall: pupils equal, round, reactive to light and accomodation 07/06/2015 None Full Exam - General 1994 Ears/Nose/Throat oral cavity/pharynx/larynx Overall: oral mucosa clear 07/06/2015 None Full Exam - General 1994 Ears/Nose/Throat oral cavity/pharynx/larynx Overall: oropharyngeal mucosa clear 07/06/2015 None Full Exam - General 1994 Ears/Nose/Throat oral cavity/pharynx/larynx Overall: no masses 07/06/2015 None Full Exam - General 1994 Respiratory auscultation Overall: breath sounds clear bilaterally 07/06/2015 None Full Exam - General 1994 Respiratory respiratory effort/rhythm Overall: no retractions 07/06/2015 None Full Exam - General 1994 Respiratory respiratory effort/rhythm Overall: normal rate 07/06/2015 None Full Exam - General 1994 Cardiovascular extremities Overall: no clubbing 07/06/2015 None Full Exam - General 1994 Cardiovascular auscultation of heart Overall: regular rate 07/06/2015 None Full Exam - General 1994 Cardiovascular auscultation of heart Overall: normal heart sounds 07/06/2015 None Full Exam - General 1994 Abdomen abdominal exam Overall: normal bowel sounds 07/06/2015 None Full Exam - General 1994 Neurologic gait Overall: no ataxia, no unsteadiness 07/06/2015 None Full Exam - General 1994 Neurologic cranial nerves Overall: crainial nerves 2 - 12 grossly intact 07/06/2015 None Full Exam - General 1994 Psychiatric orientation/consciousness Overall: oriented to person, place and time 07/06/2015 None Full Exam - General 1994 Psychiatric mood and affect Mood: depressed 07/06/2015 None Full Exam - General 1994 Lymphatic neck nodes Overall: anterior cervical chain benign 07/06/2015 None Full Exam - General 1994 Lymphatic neck nodes Overall: posterior cervical chain benign 07/06/2015 None Full Exam - General 1994 Constitutional general appearance Overall: well developed 05/26/2015 None Full Exam - General 1994 Constitutional general appearance Overall: well nourished 05/26/2015 None Full Exam - General 1994 Eyes pupils and irises Overall: pupils equal, round, reactive to light and accomodation 05/26/2015 None Full Exam - General 1994 Ears/Nose/Throat oral cavity/pharynx/larynx Overall: oral mucosa clear 05/26/2015 None Full Exam - General 1994 Ears/Nose/Throat oral cavity/pharynx/larynx Overall: oropharyngeal mucosa clear 05/26/2015 None Full Exam - General 1994 Ears/Nose/Throat oral cavity/pharynx/larynx Overall: no masses 05/26/2015 None Full Exam - General 1994 Respiratory auscultation Overall: breath sounds clear bilaterally 05/26/2015 None Full Exam - General 1994 Respiratory respiratory effort/rhythm Overall: no retractions 05/26/2015 None Full Exam - General 1994 Respiratory respiratory effort/rhythm Overall: normal rate 05/26/2015 None Full Exam - General 1994 Cardiovascular extremities Overall: no clubbing 05/26/2015 None Full Exam - General 1994 Cardiovascular auscultation of heart Overall: regular rate 05/26/2015 None Full Exam - General 1994 Cardiovascular auscultation of heart Overall: normal heart sounds 05/26/2015 None Full Exam - General 1994 Abdomen abdominal exam Overall: normal bowel sounds 05/26/2015 None Full Exam - General 1994 Neurologic gait Overall: no ataxia, no unsteadiness 05/26/2015 None Full Exam - General 1994 Neurologic cranial nerves Overall: crainial nerves 2 - 12 grossly intact 05/26/2015 None Full Exam - General 1994 Psychiatric orientation/consciousness Overall: oriented to person, place and time 05/26/2015 None Full Exam - General 1994 Psychiatric mood and affect Mood: depressed 05/26/2015 None Full Exam - General 1994 Constitutional general appearance Evidence of Distress: tearful 05/26/2015 None Full Exam - General 1994 Constitutional general appearance Overall: in no acute distress 05/26/2015 None Full Exam - Dermatology Constitutional general appearance Overall: well nourished 02/16/2015 None Full Exam - Dermatology Constitutional general appearance Overall: in no acute distress 02/16/2015 None Full Exam - Dermatology Constitutional general appearance Overall: well developed 02/16/2015 None Full Exam - Dermatology Constitutional general appearance Overall: of normal body habitus 02/16/2015 None Full Exam - Dermatology Constitutional general appearance Overall: well groomed 02/16/2015 None Full Exam - Dermatology Psychiatric orientation Overall: oriented to person, place and time 02/16/2015 None Full Exam - Dermatology Integument insp & palp - right upper extremity Lesion: bulla 02/16/2015 blisters noted ventral surface of 2nd and 3rd fingers right hand Full Exam - Dermatology Integument insp & palp - right upper extremity Location: on the fingers 02/16/2015 None Full Exam - General 1994 Constitutional general appearance Overall: well developed 12/10/2014 None Full Exam - General 1994 Constitutional general appearance Overall: in no acute distress 12/10/2014 None Full Exam - General 1994 Constitutional general appearance Overall: well nourished 12/10/2014 None Full Exam - General 1994 Eyes pupils and irises Overall: pupils equal, round, reactive to light and accomodation 12/10/2014 None Full Exam - General 1994 Ears/Nose/Throat otoscopic exam Overall: external auditory canals clear 12/10/2014 None Full Exam - General 1994 Ears/Nose/Throat otoscopic exam Overall: tympanic membranes clear 12/10/2014 None Full Exam - General 1994 Ears/Nose/Throat oral cavity/pharynx/larynx Overall: oral mucosa clear 12/10/2014 None Full Exam - General 1994 Ears/Nose/Throat oral cavity/pharynx/larynx Overall: oropharyngeal mucosa clear 12/10/2014 None Full Exam - General 1994 Ears/Nose/Throat oral cavity/pharynx/larynx Overall: no masses 12/10/2014 None Full Exam - General 1994 Respiratory auscultation Overall: breath sounds clear bilaterally 12/10/2014 None Full Exam - General 1994 Respiratory respiratory effort/rhythm Overall: no retractions 12/10/2014 None Full Exam - General 1994 Respiratory respiratory effort/rhythm Overall: normal rate 12/10/2014 None Full Exam - General 1994 Cardiovascular extremities Overall: no clubbing 12/10/2014 None Full Exam - General 1994 Cardiovascular auscultation of heart Overall: regular rate 12/10/2014 None Full Exam - General 1994 Cardiovascular auscultation of heart Overall: normal heart sounds 12/10/2014 None Full Exam - General 1994 Abdomen abdominal exam Overall: no tenderness 12/10/2014 None Full Exam - General 1994 Abdomen abdominal exam Overall: normal bowel sounds 12/10/2014 None Full Exam - General 1994 Musculoskeletal head and neck Overall: head atraumatic 12/10/2014 None Full Exam - General 1994 Musculoskeletal head and neck Overall: cervical spine benign 12/10/2014 None Full Exam - General 1994 Neurologic gait Overall: no ataxia, no unsteadiness 12/10/2014 None Full Exam - General 1994 Neurologic cranial nerves Overall: crainial nerves 2 - 12 grossly intact 12/10/2014 None Full Exam - General 1994 Psychiatric orientation/consciousness Overall: oriented to person, place and time 12/10/2014 None Full Exam - General 1994 Psychiatric mood and affect Overall: normal mood and affect 12/10/2014 None Full Exam - General 1994 Musculoskeletal lower extremity Inspection - foot: claw toes 12/10/2014 left foot - fifth digit - overriding 4th toe, hammertoe on 2nd and 5th digits Full Exam - General 1994 Constitutional general appearance Overall: well developed 10/16/2014 None Full Exam - General 1994 Constitutional general appearance Overall: in no acute distress 10/16/2014 None Full Exam - General 1994 Constitutional general appearance Overall: well nourished 10/16/2014 None Full Exam - General 1994 Eyes pupils and irises Overall: pupils equal, round, reactive to light and accomodation 10/16/2014 None Full Exam - General 1994 Ears/Nose/Throat oral cavity/pharynx/larynx Overall: oral mucosa clear 10/16/2014 None Full Exam - General 1994 Ears/Nose/Throat oral cavity/pharynx/larynx Overall: oropharyngeal mucosa clear 10/16/2014 None Full Exam - General 1994 Ears/Nose/Throat oral cavity/pharynx/larynx Overall: no masses 10/16/2014 None Full Exam - General 1994 Respiratory auscultation Overall: breath sounds clear bilaterally 10/16/2014 None Full Exam - General 1994 Respiratory respiratory effort/rhythm Overall: no retractions 10/16/2014 None Full Exam - General 1994 Respiratory respiratory effort/rhythm Overall: normal rate 10/16/2014 None Full Exam - General 1994 Cardiovascular extremities Overall: no clubbing 10/16/2014 None Full Exam - General 1994 Cardiovascular auscultation of heart Overall: regular rate 10/16/2014 None Full Exam - General 1994 Cardiovascular auscultation of heart Overall: normal heart sounds 10/16/2014 None Full Exam - General 1994 Abdomen abdominal exam Overall: normal bowel sounds 10/16/2014 None Full Exam - General 1994 Neurologic gait Overall: no ataxia, no unsteadiness 10/16/2014 None Full Exam - General 1994 Neurologic cranial nerves Overall: crainial nerves 2 - 12 grossly intact 10/16/2014 None Full Exam - General 1994 Psychiatric orientation/consciousness Overall: oriented to person, place and time 10/16/2014 None Full Exam - General 1994 Psychiatric mood and affect Overall: normal mood and affect 10/16/2014 None Full Exam - General 1994 Abdomen abdominal exam Upper quadrant: non-tender to palpation 10/16/2014 None Full Exam - General 1994 Abdomen abdominal exam Lower quadrant: tender to palpation 10/16/2014 None Full Exam - General 1994 Constitutional general appearance Overall: well developed 10/09/2014 None Full Exam - General 1994 Constitutional general appearance Overall: in no acute distress 10/09/2014 None Full Exam - General 1994 Constitutional general appearance Overall: well nourished 10/09/2014 None Full Exam - General 1994 Eyes pupils and irises Overall: pupils equal, round, reactive to light and accomodation 10/09/2014 None Full Exam - General 1994 Ears/Nose/Throat otoscopic exam Overall: external auditory canals clear 10/09/2014 None Full Exam - General 1994 Ears/Nose/Throat otoscopic exam Overall: tympanic membranes clear 10/09/2014 None Full Exam - General 1994 Ears/Nose/Throat oral cavity/pharynx/larynx Overall: oral mucosa clear 10/09/2014 None Full Exam - General 1994 Ears/Nose/Throat oral cavity/pharynx/larynx Overall: oropharyngeal mucosa clear 10/09/2014 None Full Exam - General 1994 Ears/Nose/Throat oral cavity/pharynx/larynx Overall: no masses 10/09/2014 None Full Exam - General 1994 Respiratory auscultation Overall: breath sounds clear bilaterally 10/09/2014 None Full Exam - General 1994 Respiratory respiratory effort/rhythm Overall: no retractions 10/09/2014 None Full Exam - General 1994 Respiratory respiratory effort/rhythm Overall: normal rate 10/09/2014 None Full Exam - General 1994 Cardiovascular extremities Overall: no clubbing 10/09/2014 None Full Exam - General 1994 Cardiovascular auscultation of heart Overall: regular rate 10/09/2014 None Full Exam - General 1994 Cardiovascular auscultation of heart Overall: normal heart sounds 10/09/2014 None Full Exam - General 1994 Abdomen abdominal exam Overall: no tenderness 10/09/2014 None Full Exam - General 1994 Abdomen abdominal exam Overall: normal bowel sounds 10/09/2014 None Full Exam - General 1994 Musculoskeletal head and neck Overall: head atraumatic 10/09/2014 None Full Exam - General 1994 Musculoskeletal head and neck Overall: cervical spine benign 10/09/2014 None Full Exam - General 1994 Neurologic gait Overall: no ataxia, no unsteadiness 10/09/2014 None Full Exam - General 1994 Neurologic cranial nerves Overall: crainial nerves 2 - 12 grossly intact 10/09/2014 None Full Exam - General 1994 Psychiatric orientation/consciousness Overall: oriented to person, place and time 10/09/2014 None Full Exam - General 1994 Psychiatric mood and affect Overall: normal mood and affect 10/09/2014 None Full Exam - General 1994 Genitourinary labia and vagina Overall: no lesions 10/09/2014 None Full Exam - General 1994 Constitutional general appearance Overall: well developed 08/26/2014 None Full Exam - General 1994 Constitutional general appearance Overall: in no acute distress 08/26/2014 None Full Exam - General 1994 Constitutional general appearance Overall: well nourished 08/26/2014 None Full Exam - General 1994 Eyes pupils and irises Overall: pupils equal, round, reactive to light and accomodation 08/26/2014 None Full Exam - General 1994 Ears/Nose/Throat otoscopic exam Overall: external auditory canals clear 08/26/2014 None Full Exam - General 1994 Ears/Nose/Throat otoscopic exam Overall: tympanic membranes clear 08/26/2014 None Full Exam - General 1994 Ears/Nose/Throat oral cavity/pharynx/larynx Overall: oral mucosa clear 08/26/2014 None Full Exam - General 1994 Ears/Nose/Throat oral cavity/pharynx/larynx Overall: oropharyngeal mucosa clear 08/26/2014 None Full Exam - General 1994 Ears/Nose/Throat oral cavity/pharynx/larynx Overall: no masses 08/26/2014 None Full Exam - General 1994 Respiratory auscultation Overall: breath sounds clear bilaterally 08/26/2014 None Full Exam - General 1994 Respiratory respiratory effort/rhythm Overall: no retractions 08/26/2014 None Full Exam - General 1994 Respiratory respiratory effort/rhythm Overall: normal rate 08/26/2014 None Full Exam - General 1994 Cardiovascular extremities Overall: no clubbing 08/26/2014 None Full Exam - General 1994 Cardiovascular auscultation of heart Overall: regular rate 08/26/2014 None Full Exam - General 1994 Cardiovascular auscultation of heart Overall: normal heart sounds 08/26/2014 None Full Exam - General 1994 Abdomen abdominal exam Overall: no tenderness 08/26/2014 None Full Exam - General 1994 Abdomen abdominal exam Overall: normal bowel sounds 08/26/2014 None Full Exam - General 1994 Musculoskeletal head and neck Overall: head atraumatic 08/26/2014 None Full Exam - General 1994 Musculoskeletal head and neck Overall: cervical spine benign 08/26/2014 None Full Exam - General 1994 Neurologic gait Overall: no ataxia, no unsteadiness 08/26/2014 None Full Exam - General 1994 Neurologic cranial nerves Overall: crainial nerves 2 - 12 grossly intact 08/26/2014 None Full Exam - General 1994 Psychiatric orientation/consciousness Overall: oriented to person, place and time 08/26/2014 None Full Exam - General 1994 Psychiatric mood and affect Overall: normal mood and affect 08/26/2014 None Full Exam - General 1994 Constitutional general appearance Overall: well developed 05/16/2014 None Full Exam - General 1994 Constitutional general appearance Overall: in no acute distress 05/16/2014 None Full Exam - General 1994 Constitutional general appearance Overall: well nourished 05/16/2014 None Full Exam - General 1994 Eyes pupils and irises Overall: pupils equal, round, reactive to light and accomodation 05/16/2014 None Full Exam - General 1994 Ears/Nose/Throat otoscopic exam Overall: external auditory canals clear 05/16/2014 None Full Exam - General 1994 Ears/Nose/Throat otoscopic exam Overall: tympanic membranes clear 05/16/2014 None Full Exam - General 1994 Ears/Nose/Throat oral cavity/pharynx/larynx Overall: oral mucosa clear 05/16/2014 None Full Exam - General 1994 Ears/Nose/Throat oral cavity/pharynx/larynx Overall: oropharyngeal mucosa clear 05/16/2014 None Full Exam - General 1994 Ears/Nose/Throat oral cavity/pharynx/larynx Overall: no masses 05/16/2014 None Full Exam - General 1994 Respiratory auscultation Overall: breath sounds clear bilaterally 05/16/2014 None Full Exam - General 1994 Respiratory respiratory effort/rhythm Overall: no retractions 05/16/2014 None Full Exam - General 1994 Respiratory respiratory effort/rhythm Overall: normal rate 05/16/2014 None Full Exam - General 1994 Cardiovascular extremities Overall: no clubbing 05/16/2014 None Full Exam - General 1994 Cardiovascular auscultation of heart Overall: regular rate 05/16/2014 None Full Exam - General 1994 Cardiovascular auscultation of heart Overall: normal heart sounds 05/16/2014 None Full Exam - General 1994 Musculoskeletal head and neck Overall: head atraumatic 05/16/2014 None Full Exam - General 1994 Neurologic gait Overall: no ataxia, no unsteadiness 05/16/2014 None Full Exam - General 1994 Neurologic cranial nerves Overall: crainial nerves 2 - 12 grossly intact 05/16/2014 None Full Exam - General 1994 Psychiatric orientation/consciousness Overall: oriented to person, place and time 05/16/2014 None Full Exam - General 1994 Psychiatric mood and affect Overall: normal mood and affect 05/16/2014 None Full Exam - General 1994 Musculoskeletal head and neck Overall: cervical spine benign 05/16/2014 tender cervical muscles bilaterally Full Exam - General 1994 Constitutional general appearance Overall: well developed 04/23/2014 None Full Exam - General 1994 Constitutional general appearance Overall: in no acute distress 04/23/2014 None Full Exam - General 1994 Constitutional general appearance Overall: well nourished 04/23/2014 None Full Exam - General 1994 Eyes pupils and irises Overall: pupils equal, round, reactive to light and accomodation 04/23/2014 None Full Exam - General 1994 Ears/Nose/Throat otoscopic exam Overall: external auditory canals clear 04/23/2014 None Full Exam - General 1994 Ears/Nose/Throat otoscopic exam Overall: tympanic membranes clear 04/23/2014 None Full Exam - General 1994 Ears/Nose/Throat oral cavity/pharynx/larynx Overall: oral mucosa clear 04/23/2014 None Full Exam - General 1994 Ears/Nose/Throat oral cavity/pharynx/larynx Overall: oropharyngeal mucosa clear 04/23/2014 None Full Exam - General 1994 Ears/Nose/Throat oral cavity/pharynx/larynx Overall: no masses 04/23/2014 None Full Exam - General 1994 Respiratory auscultation Overall: breath sounds clear bilaterally 04/23/2014 None Full Exam - General 1994 Respiratory respiratory effort/rhythm Overall: no retractions 04/23/2014 None Full Exam - General 1994 Respiratory respiratory effort/rhythm Overall: normal rate 04/23/2014 None Full Exam - General 1994 Cardiovascular extremities Overall: no clubbing 04/23/2014 None Full Exam - General 1994 Cardiovascular auscultation of heart Overall: regular rate 04/23/2014 None Full Exam - General 1994 Cardiovascular auscultation of heart Overall: normal heart sounds 04/23/2014 None Full Exam - General 1994 Abdomen abdominal exam Overall: no tenderness 04/23/2014 None Full Exam - General 1994 Abdomen abdominal exam Overall: normal bowel sounds 04/23/2014 None Full Exam - General 1994 Neurologic gait Overall: no ataxia, no unsteadiness 04/23/2014 None Full Exam - General 1994 Neurologic cranial nerves Overall: crainial nerves 2 - 12 grossly intact 04/23/2014 None Full Exam - General 1994 Psychiatric orientation/consciousness Overall: oriented to person, place and time 04/23/2014 None Full Exam - General 1994 Psychiatric mood and affect Overall: normal mood and affect 04/23/2014 None Full Exam - General 1994 Integument inspection of skin Dermatitis: excoriation 04/23/2014 None Full Exam - General 1994 Integument inspection of skin Dermatitis: erythema 04/23/2014 on wrist bilaterally Full Exam - ENT Constitutional general appearance Overall: well nourished 01/21/2014 None Full Exam - ENT Constitutional general appearance Overall: well developed 01/21/2014 None Full Exam - ENT Constitutional general appearance Overall: in no acute distress 01/21/2014 None Full Exam - ENT Neurologic orientation Overall: oriented to person, place and time 01/21/2014 None Full Exam - ENT Lymphatic palpation of lymph nodes Overall: anterior cervical chain benign 01/21/2014 None Full Exam - ENT Lymphatic palpation of lymph nodes Overall: posterior cervical chain benign 01/21/2014 None Full Exam - ENT Cardiovascular auscultation of heart Overall: regular rate 01/21/2014 None Full Exam - ENT Cardiovascular auscultation of heart Overall: normal heart sounds 01/21/2014 None Full Exam - ENT Respiratory auscultation Overall: breath sounds clear bilaterally 01/21/2014 None Full Exam - ENT Respiratory inspection Overall: no retractions 01/21/2014 None Full Exam - ENT Respiratory inspection Overall: normal rate 01/21/2014 None Full Exam - ENT Face and Head palpation Overall: no sinus tenderness 01/21/2014 None Full Exam - ENT Ears/Nose/Throat otoscopic exam Overall: external auditory canals normal 01/21/2014 None Full Exam - ENT Ears/Nose/Throat otoscopic exam Overall: tympanic membranes normal 01/21/2014 None Full Exam - ENT Ears/Nose/Throat oropharynx Overall: oral mucosa clear 01/21/2014 None Full Exam - General 1994 Constitutional general appearance Overall: well developed 12/05/2013 None Full Exam - General 1994 Constitutional general appearance Overall: in no acute distress 12/05/2013 None Full Exam - General 1994 Constitutional general appearance Overall: well nourished 12/05/2013 None Full Exam - General 1994 Eyes pupils and irises Overall: pupils equal, round, reactive to light and accomodation 12/05/2013 None Full Exam - General 1994 Ears/Nose/Throat otoscopic exam Overall: external auditory canals clear 12/05/2013 None Full Exam - General 1994 Ears/Nose/Throat otoscopic exam Overall: tympanic membranes clear 12/05/2013 None Full Exam - General 1994 Ears/Nose/Throat oral cavity/pharynx/larynx Overall: oral mucosa clear 12/05/2013 None Full Exam - General 1994 Ears/Nose/Throat oral cavity/pharynx/larynx Overall: oropharyngeal mucosa clear 12/05/2013 None Full Exam - General 1994 Ears/Nose/Throat oral cavity/pharynx/larynx Overall: no masses 12/05/2013 None Full Exam - General 1994 Respiratory auscultation Overall: breath sounds clear bilaterally 12/05/2013 None Full Exam - General 1994 Respiratory respiratory effort/rhythm Overall: no retractions 12/05/2013 None Full Exam - General 1994 Respiratory respiratory effort/rhythm Overall: normal rate 12/05/2013 None Full Exam - General 1994 Cardiovascular extremities Overall: no clubbing 12/05/2013 None Full Exam - General 1994 Cardiovascular auscultation of heart Overall: regular rate 12/05/2013 None Full Exam - General 1994 Cardiovascular auscultation of heart Overall: normal heart sounds 12/05/2013 None Full Exam - General 1994 Abdomen abdominal exam Overall: no tenderness 12/05/2013 None Full Exam - General 1994 Abdomen abdominal exam Overall: normal bowel sounds 12/05/2013 None Full Exam - General 1994 Musculoskeletal head and neck Overall: head atraumatic 12/05/2013 None Full Exam - General 1994 Musculoskeletal head and neck Overall: cervical spine benign 12/05/2013 None Full Exam - General 1994 Neurologic gait Overall: no ataxia, no unsteadiness 12/05/2013 None Full Exam - General 1994 Neurologic cranial nerves Overall: crainial nerves 2 - 12 grossly intact 12/05/2013 None Full Exam - General 1994 Psychiatric orientation/consciousness Overall: oriented to person, place and time 12/05/2013 None Full Exam - General 1994 Psychiatric mood and affect Overall: normal mood and affect 12/05/2013 None Full Exam - General 1994 Constitutional general appearance Overall: well developed 11/05/2013 None Full Exam - General 1994 Constitutional general appearance Overall: in no acute distress 11/05/2013 None Full Exam - General 1994 Constitutional general appearance Overall: well nourished 11/05/2013 None Full Exam - General 1994 Eyes pupils and irises Overall: pupils equal, round, reactive to light and accomodation 11/05/2013 None Full Exam - General 1994 Ears/Nose/Throat otoscopic exam Overall: external auditory canals clear 11/05/2013 None Full Exam - General 1994 Ears/Nose/Throat otoscopic exam Overall: tympanic membranes clear 11/05/2013 None Full Exam - General 1994 Ears/Nose/Throat oral cavity/pharynx/larynx Overall: oral mucosa clear 11/05/2013 None Full Exam - General 1994 Ears/Nose/Throat oral cavity/pharynx/larynx Overall: oropharyngeal mucosa clear 11/05/2013 None Full Exam - General 1994 Ears/Nose/Throat oral cavity/pharynx/larynx Overall: no masses 11/05/2013 None Full Exam - General 1994 Respiratory auscultation Overall: breath sounds clear bilaterally 11/05/2013 None Full Exam - General 1994 Respiratory respiratory effort/rhythm Overall: no retractions 11/05/2013 None Full Exam - General 1994 Respiratory respiratory effort/rhythm Overall: normal rate 11/05/2013 None Full Exam - General 1994 Cardiovascular extremities Overall: no clubbing 11/05/2013 None Full Exam - General 1994 Cardiovascular auscultation of heart Overall: regular rate 11/05/2013 None Full Exam - General 1994 Cardiovascular auscultation of heart Overall: normal heart sounds 11/05/2013 None Full Exam - General 1994 Abdomen abdominal exam Overall: no tenderness 11/05/2013 None Full Exam - General 1994 Abdomen abdominal exam Overall: normal bowel sounds 11/05/2013 None Full Exam - General 1994 Musculoskeletal head and neck Overall: head atraumatic 11/05/2013 None Full Exam - General 1994 Musculoskeletal head and neck Overall: cervical spine benign 11/05/2013 None Full Exam - General 1994 Neurologic gait Overall: no ataxia, no unsteadiness 11/05/2013 None Full Exam - General 1994 Neurologic cranial nerves Overall: crainial nerves 2 - 12 grossly intact 11/05/2013 None Full Exam - General 1994 Psychiatric orientation/consciousness Overall: oriented to person, place and time 11/05/2013 None Full Exam - General 1994 Psychiatric mood and affect Overall: normal mood and affect 11/05/2013 None Full Exam - General 1994 Constitutional general appearance Overall: well developed 10/15/2013 None Full Exam - General 1994 Constitutional general appearance Overall: in no acute distress 10/15/2013 None Full Exam - General 1994 Constitutional general appearance Overall: well nourished 10/15/2013 None Full Exam - General 1994 Eyes pupils and irises Overall: pupils equal, round, reactive to light and accomodation 10/15/2013 None Full Exam - General 1994 Ears/Nose/Throat otoscopic exam Overall: external auditory canals clear 10/15/2013 None Full Exam - General 1994 Ears/Nose/Throat otoscopic exam Overall: tympanic membranes clear 10/15/2013 None Full Exam - General 1995 Ears/Nose/Throat oral cavity/pharynx/larynx Overall: oral mucosa clear 10/15/2013 None Full Exam - General 1994 Ears/Nose/Throat oral cavity/pharynx/larynx Overall: oropharyngeal mucosa clear 10/15/2013 None Full Exam - General 1994 Ears/Nose/Throat oral cavity/pharynx/larynx Overall: no masses 10/15/2013 None Full Exam - General 1994 Respiratory auscultation Overall: breath sounds clear bilaterally 10/15/2013 None Full Exam - General 1994 Respiratory respiratory effort/rhythm Overall: no retractions 10/15/2013 None Full Exam - General 1994 Respiratory respiratory effort/rhythm Overall: normal rate 10/15/2013 None Full Exam - General 1994 Cardiovascular extremities Overall: no clubbing 10/15/2013 None Full Exam - General 1994 Cardiovascular auscultation of heart Overall: regular rate 10/15/2013 None Full Exam - General 1994 Cardiovascular auscultation of heart Overall: normal heart sounds 10/15/2013 None Full Exam - General 1994 Abdomen abdominal exam Overall: no tenderness 10/15/2013 None Full Exam - General 1994 Abdomen abdominal exam Overall: normal bowel sounds 10/15/2013 None Full Exam - General 1994 Musculoskeletal head and neck Overall: head atraumatic 10/15/2013 None Full Exam - General 1994 Musculoskeletal head and neck Overall: cervical spine benign 10/15/2013 None Full Exam - General 1994 Neurologic gait Overall: no ataxia, no unsteadiness 10/15/2013 None Full Exam - General 1994 Neurologic cranial nerves Overall: crainial nerves 2 - 12 grossly intact 10/15/2013 None Full Exam - General 1994 Psychiatric orientation/consciousness Overall: oriented to person, place and time 10/15/2013 None Full Exam - General 1994 Psychiatric mood and affect Overall: normal mood and affect 10/15/2013 None Full Exam - General 1994 Constitutional general appearance Development: appears stated age 0310/15/2013 None Full Exam - General 1994 Constitutional general appearance Development: well developed 10/15/2013 None Full Exam - General 1994 Constitutional general appearance Hygiene/Attention to Grooming: good hygiene 10/15/2013 None Full Exam - General 1994 Eyes conjunctiva/eyelids Overall: conjunctiva clear 10/15/2013 None Full Exam - General 1994 Eyes conjunctiva/eyelids Overall: cornea clear 10/15/2013 None Full Exam - General 1994 Eyes conjunctiva/eyelids Overall: eyelids normal 10/15/2013 None Full Exam - General 1995 Ears/Nose/Throat lips/teeth/gingiva Overall: benign lips 10/15/2013 None Full Exam - General 1995 Ears/Nose/Throat lips/teeth/gingiva Overall: normal dentition 10/15/2013 None Full Exam - General 1995 Ears/Nose/Throat oral cavity/pharynx/larynx Overall: hypopharynx benign 10/15/2013 None Full Exam - General 1994 Integument inspection of skin Overall: few scattered moles, no gross abnormalities 10/15/2013 None Full Exam - General 1994 Neurologic deep tendon reflexes Overall: deep tendon reflexes intact 10/15/2013 None Full Exam - General 1994 Genitourinary bladder Overall: no tenderness 10/15/2013 None Full Exam - General 1994 Genitourinary urethra Inspection: non-tender 10/15/2013 erythema Full Exam - General 1994 Genitourinary adnexa/parametria Overall: surgically absent 10/15/2013 None Full Exam - General 1994 Genitourinary labia and vagina Overall: normal hair distribution 10/15/2013 None Full Exam - General 1994 Genitourinary labia and vagina Overall: no lesions 10/15/2013 None Full Exam - General 1994 Genitourinary cervix Overall: surgically absent 10/15/2013 None Full Exam - General 1994 Genitourinary uterus Overall: surgically absent 10/15/2013 None Full Exam - General 1994 Chest/Breast breast and axillae palpation Overall: breasts non- tender 10/15/2013 None Full Exam - General 1994 Chest/Breast breast and axillae palpation Overall: axillae non- tender 10/15/2013 None Full Exam - General 1994 Chest/Breast breast and axillae palpation Overall: no nipple discharge 10/15/2013 None Full Exam - General 1994 Constitutional general appearance Development: well developed 09/30/2013 None Full Exam - General 1994 Constitutional general appearance Development: appears stated age 0209/30/2013 None Full Exam - General 1994 Constitutional general appearance Overall: well developed 09/30/2013 None Full Exam - General 1994 Constitutional general appearance Overall: in no acute distress 09/30/2013 None Full Exam - General 1994 Constitutional general appearance Overall: well nourished 09/30/2013 None Full Exam - General 1994 Constitutional general appearance Hygiene/Attention to Grooming: good hygiene 09/30/2013 None Full Exam - General 1994 Eyes conjunctiva/eyelids Overall: conjunctiva clear 09/30/2013 None Full Exam - General 1994 Eyes conjunctiva/eyelids Overall: cornea clear 09/30/2013 None Full Exam - General 1994 Eyes conjunctiva/eyelids Overall: eyelids normal 09/30/2013 None Full Exam - General 1994 Eyes pupils and irises Overall: pupils equal, round, reactive to light and accomodation 09/30/2013 None Full Exam - General 1994 Ears/Nose/Throat otoscopic exam Overall: external auditory canals clear 09/30/2013 None Full Exam - General 1994 Ears/Nose/Throat otoscopic exam Overall: tympanic membranes clear 09/30/2013 None Full Exam - General 1994 Ears/Nose/Throat lips/teeth/gingiva Overall: benign lips 09/30/2013 None Full Exam - General 1994 Ears/Nose/Throat lips/teeth/gingiva Overall: normal dentition 09/30/2013 None Full Exam - General 1994 Ears/Nose/Throat oral cavity/pharynx/larynx Overall: oral mucosa clear 09/30/2013 None Full Exam - General 1994 Ears/Nose/Throat oral cavity/pharynx/larynx Overall: oropharyngeal mucosa clear 09/30/2013 None Full Exam - General 1994 Ears/Nose/Throat oral cavity/pharynx/larynx Overall: no masses 09/30/2013 None Full Exam - General 1994 Respiratory auscultation Overall: breath sounds clear bilaterally 09/30/2013 None Full Exam - General 1994 Respiratory respiratory effort/rhythm Overall: no retractions 09/30/2013 None Full Exam - General 1994 Respiratory respiratory effort/rhythm Overall: normal rate 09/30/2013 None Full Exam - General 1994 Cardiovascular extremities Overall: no clubbing 09/30/2013 None Full Exam - General 1994 Cardiovascular auscultation of heart Overall: regular rate 09/30/2013 None Full Exam - General 1994 Cardiovascular auscultation of heart Overall: normal heart sounds 09/30/2013 None Full Exam - General 1994 Neurologic gait Overall: no ataxia, no unsteadiness 09/30/2013 None Full Exam - General 1994 Neurologic cranial nerves Overall: crainial nerves 2 - 12 grossly intact 09/30/2013 None Full Exam - General 1994 Psychiatric orientation/consciousness Overall: oriented to person, place and time 09/30/2013 None Full Exam - General 1994 Psychiatric mood and affect Overall: normal mood and affect 09/30/2013 None Full Exam - General 1995 Ears/Nose/Throat oral cavity/pharynx/larynx Overall: no masses 03/13/2013 None Full Exam - General 1994 Respiratory auscultation Overall: breath sounds clear bilaterally 03/13/2013 None Full Exam - General 1994 Respiratory respiratory effort/rhythm Overall: no retractions 03/13/2013 None Full Exam - General 1995 Respiratory respiratory effort/rhythm Overall: normal rate 03/13/2013 None Full Exam - General 1994 Cardiovascular extremities Overall: no clubbing 03/13/2013 None Full Exam - General 1994 Cardiovascular auscultation of heart Overall: regular rate 03/13/2013 None Full Exam - General 1994 Cardiovascular auscultation of heart Overall: normal heart sounds 03/13/2013 None Full Exam - General 1994 Abdomen abdominal exam Overall: no tenderness 03/13/2013 None Full Exam - General 1994 Abdomen abdominal exam Overall: normal bowel sounds 03/13/2013 None Full Exam - General 1994 Musculoskeletal head and neck Overall: head atraumatic 03/13/2013 None Full Exam - General 1994 Musculoskeletal head and neck Overall: cervical spine benign 03/13/2013 None Full Exam - General 1994 Neurologic gait Overall: no ataxia, no unsteadiness 03/13/2013 None Full Exam - General 1994 Neurologic cranial nerves Overall: crainial nerves 2 - 12 grossly intact 03/13/2013 None Full Exam - General 1994 Psychiatric orientation/consciousness Overall: oriented to person, place and time 03/13/2013 None Full Exam - General 1994 Constitutional general appearance Overall: well developed 03/13/2013 None Full Exam - General 1994 Constitutional general appearance Overall: in no acute distress 03/13/2013 None Full Exam - General 1994 Constitutional general appearance Overall: well nourished 03/13/2013 None Full Exam - General 1994 Eyes pupils and irises Overall: pupils equal, round, reactive to light and accomodation 03/13/2013 None Full Exam - General 1994 Ears/Nose/Throat otoscopic exam Overall: external auditory canals clear 03/13/2013 None Full Exam - General 1994 Ears/Nose/Throat otoscopic exam Overall: tympanic membranes clear 03/13/2013 None Full Exam - General 1995 Ears/Nose/Throat oral cavity/pharynx/larynx Overall: oral mucosa clear 03/13/2013 None Full Exam - General 1995 Ears/Nose/Throat oral cavity/pharynx/larynx Overall: oropharyngeal mucosa clear 03/13/2013 None Full Exam - General 1994 Psychiatric mood and affect Overall: normal mood and affect 03/13/2013 None Full Exam - General 1994 Constitutional general appearance Overall: well nourished 10/04/2012 None Full Exam - General 1994 Constitutional general appearance Overall: well developed 10/04/2012 None Full Exam - General 1995 Constitutional general appearance Overall: in no acute distress 10/04/2012 None Full Exam - General 1994 Eyes pupils and irises Overall: pupils equal, round, reactive to light and accomodation 10/04/2012 None Full Exam - General 1995 Ears/Nose/Throat otoscopic exam Overall: external auditory canals clear 10/04/2012 None Full Exam - General 1995 Ears/Nose/Throat otoscopic exam Overall: tympanic membranes clear 10/04/2012 None Full Exam - General 1995 Ears/Nose/Throat oral cavity/pharynx/larynx Overall: oral mucosa clear 10/04/2012 None Full Exam - General 1995 Ears/Nose/Throat oral cavity/pharynx/larynx Overall: oropharyngeal mucosa clear 10/04/2012 None Full Exam - General 1995 Ears/Nose/Throat oral cavity/pharynx/larynx Overall: no masses 10/04/2012 None Full Exam - General 1994 Respiratory auscultation Overall: breath sounds clear bilaterally 10/04/2012 None Full Exam - General 1994 Respiratory respiratory effort/rhythm Overall: no retractions 10/04/2012 None Full Exam - General 1994 Respiratory respiratory effort/rhythm Overall: normal rate 10/04/2012 None Full Exam - General 1994 Cardiovascular auscultation of heart Overall: regular rate 10/04/2012 None Full Exam - General 1994 Cardiovascular auscultation of heart Overall: normal heart sounds 10/04/2012 None Full Exam - General 1994 Cardiovascular extremities Overall: no clubbing 10/04/2012 None Full Exam - General 1994 Abdomen abdominal exam Overall: no tenderness 10/04/2012 None Full Exam - General 1994 Abdomen abdominal exam Overall: normal bowel sounds 10/04/2012 None Full Exam - General 1994 Musculoskeletal head and neck Overall: head atraumatic 10/04/2012 None Full Exam - General 1995 Musculoskeletal head and neck Overall: cervical spine benign 10/04/2012 None Full Exam - General 1994 Neurologic gait Overall: no ataxia, no unsteadiness 10/04/2012 None Full Exam - General 1994 Neurologic cranial nerves Overall: crainial nerves 2 - 12 grossly intact 10/04/2012 None Full Exam - General 1994 Psychiatric orientation/consciousness Overall: oriented to person, place and time 10/04/2012 None Full Exam - General 1994 Psychiatric mood and affect Overall: normal mood and affect 10/04/2012 None Full Exam - General 1994 Psychiatric mood and affect Affect: mood congruent 08/22/2011 None Full Exam - General 1994 Psychiatric appearance Overall: well-groomed, good eye contact 08/22/2011 None Full Exam - General 1994 Cardiovascular auscultation of heart Overall: regular rate 08/22/2011 None Full Exam - General 1994 Cardiovascular auscultation of heart Overall: normal heart sounds 08/22/2011 None Full Exam - General 1994 Cardiovascular auscultation of heart Overall: no murmurs 08/22/2011 None Full Exam - General 1994 Respiratory auscultation Overall: breath sounds clear bilaterally 08/22/2011 None Full Exam - General 1994 Respiratory respiratory effort/rhythm Overall: normal rate 08/22/2011 None Full Exam - General 1994 Respiratory respiratory effort/rhythm Overall: no retractions 08/22/2011 None Full Exam - General 1994 Constitutional general appearance Development: well developed 08/22/2011 None Full Exam - General 1994 Constitutional general appearance Development: appears stated age 0108/22/2011 None Full Exam - General 1994 Psychiatric orientation/consciousness Overall: oriented to person, place and time 08/22/2011 None Full Exam - General 1994 Psychiatric mood and affect Mood: depressed 08/22/2011 and tearful Full Exam - General 1994 Psychiatric orientation/consciousness Overall: oriented to person, place and time 06/17/2011 None Full Exam - General 1994 Psychiatric mood and affect Overall: normal mood and affect 06/17/2011 None Full Exam - General 1994 Neurologic cranial nerves Overall: crainial nerves 2 - 12 grossly intact 06/17/2011 None Full Exam - General 1994 Neurologic gait Overall: no ataxia, no unsteadiness 06/17/2011 None Full Exam - General 1994 Musculoskeletal head and neck Overall: cervical spine benign 06/17/2011 None Full Exam - General 1994 Musculoskeletal head and neck Overall: head atraumatic 06/17/2011 None Full Exam - General 1994 Abdomen abdominal exam Overall: no tenderness 06/17/2011 None Full Exam - General 1994 Abdomen abdominal exam Overall: normal bowel sounds 06/17/2011 None Full Exam - General 1994 Cardiovascular auscultation of heart Overall: regular rate 06/17/2011 None Full Exam - General 1994 Cardiovascular auscultation of heart Overall: normal heart sounds 06/17/2011 None Full Exam - General 1994 Cardiovascular extremities Overall: no clubbing 06/17/2011 None Full Exam - General 1994 Respiratory respiratory effort/rhythm Overall: normal rate 06/17/2011 None Full Exam - General 1994 Respiratory respiratory effort/rhythm Overall: no retractions 06/17/2011 None Full Exam - General 1994 Respiratory auscultation Overall: breath sounds clear bilaterally 06/17/2011 None Full Exam - General 1994 Ears/Nose/Throat oral cavity/pharynx/larynx Overall: oropharyngeal mucosa clear 06/17/2011 None Full Exam - General 1994 Ears/Nose/Throat oral cavity/pharynx/larynx Overall: no masses 06/17/2011 None Full Exam - General 1994 Ears/Nose/Throat oral cavity/pharynx/larynx Overall: oral mucosa clear 06/17/2011 None Full Exam - General 1994 Ears/Nose/Throat otoscopic exam Overall: tympanic membranes clear 06/17/2011 None Full Exam - General 1994 Ears/Nose/Throat otoscopic exam Overall: external auditory canals clear 06/17/2011 None Full Exam - General 1994 Constitutional general appearance Overall: well nourished 06/17/2011 None Full Exam - General 1994 Constitutional general appearance Overall: well developed 06/17/2011 None Full Exam - General 1994 Constitutional general appearance Overall: in no acute distress 06/17/2011 None Full Exam - General 1994 Eyes pupils and irises Overall: pupils equal, round, reactive to light and accomodation 06/17/2011 None Procedures Procedure Codes Date ADMIN INFLUENZA VIRUS VAC CPT-4: [id number] 06/07/2017 FLU VACC PRSV FREE INC ANTIG CPT-4: 21062Evbntww 06/07/2017 PPPS, SUBSEQ VISIT CPT-4: T7793Ncxkkfk 11/17/2016 TRIAMCINOLONE ACET INJ NOS CPT-4: E2042Yucgfgb 09/05/2016 PPPS, SUBSEQ VISIT CPT-4: B9486Jajneob 11/13/2015 PNEUMOCOCCAL VACC 13 STEPHANIE IM Formatting Model/CDA Sections, Assigned to/Lila Colon SNOMED CT: 44178571 CPT-4: 23029Xsiadbi 11/13/2015 ADMIN PNEUMOCOCCAL VACCINE SNOMED CT: 02867986 CPT-4: G6945Vtvrchr 11/13/2015 ROCEPHIN, PER 250 MG CPT-4: U0061Pavtmrd 07/23/2015 URINALYSIS NONAUTO W/O SCOPE CPT-4: 99097Elfrcjf 10/10/2014 ROUTINE VENIPUNCTURE CPT-4: 30338Uwarcfd 04/23/2014 Pneumococcal Polysaccharide Vaccine, 23-Valent, Ad CPT-4: 38417Hbnpyyq 04/15/2014 ADMIN INFLUENZA VIRUS VAC CPT-4: F9010Pgctgyv 04/15/2014 FLU VAC NO PRSV 4 STEPHANIE 3 YRS+ CPT-4: 93502Jxmruah 04/15/2014 ADMIN PNEUMOCOCCAL VACCINE SNOMED CT: 32076170 CPT-4: J3495Sihwhzl 04/15/2014 THER/PROPH/DIAG INJ SC/IM CPT-4: 31410Ywzjgrn 02/11/2014 TRIAMCINOLONE ACET INJ NOS CPT-4: Q9250Pniusjc 02/11/2014 TRIAMCINOLONE ACET INJ NOS CPT-4: O0502Ddzgehi 01/21/2014 INITIAL PREVENTIVE EXAM CPT-4: X5369Wvmlpji 09/30/2013 PRESCRIP TRANSMIT VIA ERX SY CPT-4: G4233Cdscirm 03/13/2013 Vital Signs Date Vital 02/16/2017 Blood Pressure 1: 128/80 Code: 8480-6 BMI: 29.9 Code: 38789-5 Heart Rate 1: 77 bpm Height: 5'5" SpO2: 96% Weight: 179 lbs 8 oz 02/06/2017 Blood Pressure 1: 140/80 Code: 8480-6 BMI: 29.8 Code: 16418-4 Heart Rate 1: 72 bpm Height: 5'5" SpO2: 97% Weight: 179 lbs 11/17/2016 Blood Pressure 1: 130/72 Code: 8480-6 BMI: 29.6 Code: 42377-9 Heart Rate 1: 62 bpm Height: 5'5" SpO2: 98% Waist Measure (cm): 91 cm Weight: 178 lbs 10/12/2016 Blood Pressure 1: 128/78 Code: 8480-6 BMI: 28.5 Code: 27065-4 Heart Rate 1: 62 bpm Height: 5'5" SpO2: 97% Weight: 171 lbs 09/05/2016 Blood Pressure 1: 122/70 Code: 8480-6 BMI: 28.0 Code: 03976-1 Heart Rate 1: 65 bpm Height: 5'5" SpO2: 94% Weight: 168 lbs 06/21/2016 Blood Pressure 1: 120/82 Code: 8480-6 BMI: 28.3 Code: 44658-4 Heart Rate 1: 65 bpm Height: 5'5" SpO2: 97% Weight: 170 lbs 05/24/2016 Blood Pressure 1: 136/80 Code: 8480-6 BMI: 28.1 Code: 77827-2 Heart Rate 1: 71 bpm Height: 5'5" SpO2: 96% Weight: 169 lbs 05/10/2016 Blood Pressure 1: 120/82 Code: 8480-6 BMI: 27.6 Code: 87513-1 Heart Rate 1: 86 bpm Height: 5'5" SpO2: 95% Weight: 166 lbs 05/03/2016 Blood Pressure 1: 124/78 Code: 8480-6 BMI: 28.1 Code: 50816-7 Heart Rate 1: 88 bpm Height: 5'5" SpO2: 97% Weight: 169 lbs 11/13/2015 Blood Pressure 1: 130/60 Code: 8480-6 BMI: 30.0 Code: 17689-8 Heart Rate 1: 7 bpm Height: 5'5" Waist Measure (cm): 97 cm Weight: 180 lbs 07/23/2015 Blood Pressure 1: 124/70 Code: 8480-6 BMI: 29.6 Code: 96765-4 Heart Rate 1: 74 bpm Height: 5'5" SpO2: 96% Temperature: 36.7 (C) / 98.1 (F) Weight: 178 lbs 07/06/2015 Blood Pressure 1: 138/78 Code: 8480-6 BMI: 29.6 Code: 88786-4 Heart Rate 1: 84 bpm Height: 5'5" SpO2: 96% Weight: 178 lbs 05/26/2015 Blood Pressure 1: 122/80 Code: 8480-6 BMI: 29.6 Code: 37907-4 Heart Rate 1: 84 bpm Height: 5'5" Weight: 178 lbs 02/16/2015 Blood Pressure 1: 124/82 Code: 8480-6 BMI: 29.0 Code: 41925-1 Heart Rate 1: 68 bpm Height: 5'5" Weight: 174 lbs 12/10/2014 Blood Pressure 1: 112/64 Code: 8480-6 BMI: 28.6 Code: 55425-6 Heart Rate 1: 80 bpm Height: 5'5" Weight: 172 lbs 10/16/2014 Blood Pressure 1: 128/84 Code: 8480-6 Heart Rate 1: 64 bpm Weight: 172 lbs 10/09/2014 Blood Pressure 1: 136/90 Code: 8480-6 BMI: 28.6 Code: 92880-3 Heart Rate 1: 76 bpm Height: 5'5" Weight: 172 lbs 08/26/2014 Blood Pressure 1: 118/72 Code: 8480-6 BMI: 29.0 Code: 20665-9 Heart Rate 1: 76 bpm Height: 5'5" Weight: 174 lbs 05/16/2014 Blood Pressure 1: 110/72 Code: 8480-6 BMI: 29.0 Code: 73877-4 Height: 5'5" Weight: 174 lbs 04/23/2014 Blood Pressure 1: 124/70 Code: 8480-6 BMI: 29.0 Code: 39440-4 Heart Rate 1: 72 bpm Height: 5'5" Weight: 174 lbs 04/15/2014 Temperature: 36.5 (C) / 97.7 (F) 01/21/2014 Blood Pressure 1: 98/62 Code: 8480-6 BMI: 29.0 Code: 11440- 5 Heart Rate 1: 84 bpm Height: 5'5" Temperature: 37.1 (C) / 98.7 (F) Weight: 174 lbs 12/05/2013 Blood Pressure 1: 138/88 Code: 8480-6 BMI: 29.0 Code: 55556-9 Heart Rate 1: 60 bpm Height: 5'5" Weight: 174 lbs 11/05/2013 Blood Pressure 1: 118/80 Code: 8480-6 BMI: 28.8 Code: 46085-6 Heart Rate 1: 76 bpm Height: 5'5" Weight: 173 lbs 10/15/2013 Blood Pressure 1: 120/78 Code: 8480-6 BMI: 29.1 Code: 64695-3 Heart Rate 1: 88 bpm Height: 5'5" Weight: 175 lbs 09/30/2013 Blood Pressure 1: 112/84 Code: 8480-6 BMI: 29.1 Code: 23018-7 Heart Rate 1: 68 bpm Height: 5'5" Weight: 175 lbs 03/13/2013 Blood Pressure 1: 112/84 Code: 8480-6 BMI: 28.6 Code: 24557-9 Heart Rate 1: 64 bpm Height: 5'5" Weight: 173 lbs 10/04/2012 Blood Pressure 1: 120/72 Code: 8480-6 BMI: 28.0 Code: 59027-8 Heart Rate 1: 64 bpm Height: 5'5" Weight: 169 lbs 08/22/2011 Blood Pressure 1: 134/84 Code: 8480-6 BMI: 27.5 Code: 41155-7 Heart Rate 1: 68 bpm Height: 5'5" Respiratory Rate: 16 bpm Weight: 166 lbs 8 oz 06/17/2011 Blood Pressure 1: 120/76 Code: 8480-6 BMI: 27.0 Code: 93532-3 Heart Rate 1: 58 bpm Height: 5'5" Respiratory Rate: 16 bpm Weight: 163 lbs Functional Status No Functional Status data History of Present Illness Symptom Name Status Result Effective Date Notes urinary frequency Quality acute 02/16/2017 None urinary frequency Onset and Resolution sudden in onset 02/16/2017 None urinary frequency Triggers no known associated factors 02/16/2017 None urinary frequency Exacerbating Factors activity 02/16/2017 None urinary frequency Pertinent Findings bladder pain 02/16/2017 pressure urinary frequency Pertinent Findings pelvic pain 02/16/2017 None urinary frequency Pertinent Findings urinary urgency 02/16/2017 None urinary frequency Onset of Symptom 3 weeks ago 02/16/2017 None urinary frequency Limitation on Activities does not limit activities 02/16/2017 None urinary frequency Frequency of Episodes increasing 02/16/2017 None depression Quality intermittent 02/06/2017 None depression Quality worsening 02/06/2017 None depression Onset and Resolution ongoing 02/06/2017 None depression Onset of Symptom _ years ago 02/06/2017 None depression Limitation on Activities moderately limits activities 02/06/2017 None depression Frequency of Episodes daily 02/06/2017 None depression Pertinent Findings anxiety 02/06/2017 None depression Pertinent Findings depressed mood 02/06/2017 None depression Pertinent Findings difficulty concentrating 02/06/2017 None depression Pertinent Findings Denies feeding difficulty 02/06/2017 None depression Pertinent Findings loss of interest in activities 02/06/2017 None depression Pertinent Findings weight loss 02/06/2017 None Annual Medicare Wellness Exam Alcohol Use does not drink any alcohol 11/17/2016 None Annual Medicare Wellness Exam Aspirin Use no 11/17/2016 None Annual Medicare Wellness Exam Blood Glucose (self reported) desireable (below 100) 11/17/2016 None Annual Medicare Wellness Exam Blood Pressure (self reported) high (140/90 or higher) 11/17/2016 None Annual Medicare Wellness Exam Cholesterol (self reported) desireable (below 200) 11/17/2016 None Annual Medicare Wellness Exam Depression (last 6 months) almost all of the time 11/17/2016 None Annual Medicare Wellness Exam Depression or Hopelessness almost never 11/17/2016 None Annual Medicare Wellness Exam Describe Your Health good 11/17/2016 None Annual Medicare Wellness Exam Exercise Habits exercises 30 minutes per day 11/17/2016 None Annual Medicare Wellness Exam Exercise Habits exercises 5 days per week 11/17/2016 None Annual Medicare Wellness Exam Handling Stress often has problems coping 11/17/2016 None Annual Medicare Wellness Exam Hemaglobin A-1C (self reported) desireable (6 or lower) 11/17/2016 None Annual Medicare Wellness Exam Hours of Sleep 7 11/17/2016 None Annual Medicare Wellness Exam Interaction with Friends yes 11/17/2016 None Annual Medicare Wellness Exam Interests & Pleasure some of the time 11/17/2016 None Annual Medicare Wellness Exam Life Satisfaction dissatisfied 11/17/2016 None Annual Medicare Wellness Exam Motor Vehicle Safety drives after drinking: n 11/17/2016 n Annual Medicare Wellness Exam Motor Vehicle Safety rides with someone who has been drinking: n 11/17/2016 None Annual Medicare Wellness Exam Motor Vehicle Safety always fastens seat belt: y 11/17/2016 None Annual Medicare Wellness Exam Nutrition servings of fried food / high fat foods per day: 3 11/17/2016 None Annual Medicare Wellness Exam Nutrition servings of high fiber / whole grain per day: 4 11/17/2016 None Annual Medicare Wellness Exam Nutrition servings of vegetables / fruit per day: 4 11/17/2016 None Annual Medicare Wellness Exam Smoking and Tobacco Use non smoker 11/17/2016 None Annual Medicare Wellness Exam Social & Emotional Support always 11/17/2016 None Annual Medicare Wellness Exam Stress most of the time 11/17/2016 None Annual Medicare Wellness Exam Sun Exposure protects skin when outdoors: y 11/17/2016 None depression Quality improving 10/12/2016 None depression Quality intermittent 10/12/2016 None depression Onset and Resolution ongoing 10/12/2016 None depression Onset of Symptom years ago 10/12/2016 None depression Limitation on Activities moderately limits activities 10/12/2016 None depression Pertinent Findings anxiety 10/12/2016 None depression Pertinent Findings Denies depressed mood 10/12/2016 None sore throat Quality intermittent 09/05/2016 None sore throat Quality scratchy 09/05/2016 None sore throat Onset and Resolution sudden in onset 09/05/2016 None sore throat Location on the right 09/05/2016 None sore throat Onset of Symptom 1 weeks ago 09/05/2016 None sore throat Limitation on Activities does not limit oral intake 09/05/2016 None sore throat Pertinent Findings cough 09/05/2016 None sore throat Pertinent Findings Denies decreased energy level 09/05/2016 None sore throat Pertinent Findings Denies fever 09/05/2016 None sore throat Pertinent Findings hoarseness 09/05/2016 None sore throat Pertinent Findings Denies ill contacts 09/05/2016 None sore throat Pertinent Findings nasal congestion 09/05/2016 None sore throat Pertinent Findings Denies unable to swallow 09/05/2016 None sore throat Alleviating Factors medication 09/05/2016 cough drops, mucinex sore throat Exacerbating Factors exertion 09/05/2016 None sore throat Exacerbating Factors voice use 09/05/2016 None sore throat Exacerbating Factors eating 09/05/2016 None cough Location in the throat 09/05/2016 None cough Onset and Resolution sudden in onset 09/05/2016 None cough Quality intermittent 09/05/2016 None cough Quality productive 09/05/2016 at times, clear in color cough Onset of Symptom 1 weeks ago 09/05/2016 None cough Limitation on Activities does not limit activities 09/05/2016 None cough Pertinent Findings chest discomfort 09/05/2016 slightly, tightness at times cough Pertinent Findings Denies dyspnea 09/05/2016 None cough Pertinent Findings Denies fever 09/05/2016 None cough Pertinent Findings Denies ill contacts 09/05/2016 None cough Pertinent Findings hoarseness 09/05/2016 None cough Pertinent Findings nasal congestion 09/05/2016 None cough Pertinent Findings Denies muscle aches 09/05/2016 None cough Pertinent Findings Denies weakness 09/05/2016 None cough Pertinent Findings sputum production 09/05/2016 clear cough Triggers no known associated factors 09/05/2016 None depression Quality improving 06/21/2016 None depression Quality intermittent 06/21/2016 None depression Onset and Resolution ongoing 06/21/2016 None depression Onset of Symptom years ago 06/21/2016 None depression Limitation on Activities moderately limits activities 06/21/2016 None depression Pertinent Findings anxiety 06/21/2016 None depression Pertinent Findings Denies depressed mood 06/21/2016 None depression Quality improving 05/24/2016 None depression Quality intermittent 05/24/2016 None depression Onset and Resolution ongoing 05/24/2016 None depression Onset of Symptom years ago 05/24/2016 None depression Limitation on Activities moderately limits activities 05/24/2016 None depression Pertinent Findings anxiety 05/24/2016 None depression Pertinent Findings depressed mood 05/24/2016 None depression Pertinent Findings difficulty concentrating 05/24/2016 None depression Pertinent Findings feeding difficulty 05/24/2016 None depression Pertinent Findings loss of interest in activities 05/24/2016 None depression Pertinent Findings weight loss 05/24/2016 None depression Quality intermittent 05/10/2016 None depression Onset and Resolution ongoing 05/10/2016 None depression Limitation on Activities moderately limits activities 05/10/2016 None depression Pertinent Findings anxiety 05/10/2016 None depression Pertinent Findings depressed mood 05/10/2016 None depression Pertinent Findings difficulty concentrating 05/10/2016 None depression Pertinent Findings feeding difficulty 05/10/2016 None depression Pertinent Findings loss of interest in activities 05/10/2016 None depression Pertinent Findings weight loss 05/10/2016 None depression Quality improving 05/10/2016 None depression Onset of Symptom years ago 05/10/2016 None depression Quality intermittent 05/03/2016 None depression Onset and Resolution ongoing 05/03/2016 None depression Quality worsening 05/03/2016 None depression Onset of Symptom _ years ago 05/03/2016 None depression Limitation on Activities moderately limits activities 05/03/2016 None depression Frequency of Episodes daily 05/03/2016 None depression Pertinent Findings anxiety 05/03/2016 None depression Pertinent Findings depressed mood 05/03/2016 None depression Pertinent Findings difficulty concentrating 05/03/2016 None depression Pertinent Findings feeding difficulty 05/03/2016 None depression Pertinent Findings loss of interest in activities 05/03/2016 None depression Pertinent Findings weight loss 05/03/2016 None Annual Medicare Wellness Exam Alcohol Use drinks _ days per week 11/13/2015 None Annual Medicare Wellness Exam Aspirin Use no 11/13/2015 None Annual Medicare Wellness Exam Blood Glucose (self reported) desireable (below 100) 11/13/2015 None Annual Medicare Wellness Exam Blood Pressure (self reported) borderline (120/80 - 139/89) 11/13/2015 None Annual Medicare Wellness Exam Cholesterol (self reported) don't know 11/13/2015 None Annual Medicare Wellness Exam Depression (last 6 months) daily 11/13/2015 None Annual Medicare Wellness Exam Depression or Hopelessness most of the time 11/13/2015 None Annual Medicare Wellness Exam Describe Your Health good 11/13/2015 None Annual Medicare Wellness Exam Exercise Habits exercises _ days per week 11/13/2015 None Annual Medicare Wellness Exam Exercise Habits exercises _ minutes per day 11/13/2015 None Annual Medicare Wellness Exam Handling Stress usually breanna effectively 11/13/2015 None Annual Medicare Wellness Exam Hemaglobin A-1C (self reported) never checked 11/13/2015 None Annual Medicare Wellness Exam Hours of Sleep _ 11/13/2015 None Annual Medicare Wellness Exam Interaction with Friends yes 11/13/2015 None Annual Medicare Wellness Exam Interests & Pleasure most of the time 11/13/2015 None Annual Medicare Wellness Exam Life Satisfaction dissatisfied 11/13/2015 None Annual Medicare Wellness Exam Motor Vehicle Safety always fastens seat belt: y 11/13/2015 None Annual Medicare Wellness Exam Motor Vehicle Safety drives after drinking: n 11/13/2015 None Annual Medicare Wellness Exam Motor Vehicle Safety rides with someone who has been drinking: n 11/13/2015 None Annual Medicare Wellness Exam Nutrition servings of fried food / high fat foods per day: 0 11/13/2015 None Annual Medicare Wellness Exam Nutrition servings of high fiber / whole grain per day: 1 11/13/2015 None Annual Medicare Wellness Exam Nutrition servings of vegetables / fruit per day: 2 11/13/2015 None Annual Medicare Wellness Exam Social & Emotional Support usually 11/13/2015 None Annual Medicare Wellness Exam Stress daily 11/13/2015 None Annual Medicare Wellness Exam Sun Exposure protects skin when outdoors: n 11/13/2015 None cough Location in the throat 07/23/2015 None cough Quality worsening 07/23/2015 None cough Quality productive 07/23/2015 None cough Onset of Symptom 2 days ago 07/23/2015 None cough Frequency of Episodes hourly 07/23/2015 None cough Pertinent Findings chest discomfort 07/23/2015 r/t cough cough Pertinent Findings Denies dyspnea 07/23/2015 None cough Pertinent Findings Denies fever 07/23/2015 None cough Triggers no known associated factors 07/23/2015 None anxiety Quality chronic 07/06/2015 None anxiety Quality intermittent 07/06/2015 None anxiety Onset and Resolution ongoing 07/06/2015 None anxiety Onset of Symptom during adulthood 07/06/2015 None anxiety Significant Family History anxiety disorder 07/06/2015 None anxiety Significant Medical Conditions precipitating event for anxiety (PTSD) 07/06/2015 None anxiety Triggers stress 07/06/2015 None anxiety Alleviating Factors medication 07/06/2015 None anxiety Pertinent Findings Denies dizziness 07/06/2015 None anxiety Pertinent Findings Denies dyspnea 07/06/2015 None anxiety Pertinent Findings insomnia 07/06/2015 None anxiety Pertinent Findings nightmares 07/06/2015 "not as bad" medication follow up Quality unchanged 07/06/2015 None anxiety Quality stable 07/06/2015 None anxiety Frequency of Episodes unchanged 07/06/2015 None medication follow up Additional Comments medication use 05/26/2015 None anxiety Quality chronic 05/26/2015 None anxiety Quality intermittent 05/26/2015 None anxiety Quality worsening 05/26/2015 None anxiety Onset and Resolution ongoing 05/26/2015 None anxiety Pertinent Findings Denies dizziness 05/26/2015 None anxiety Pertinent Findings Denies dyspnea 05/26/2015 None anxiety Pertinent Findings insomnia 05/26/2015 None anxiety Pertinent Findings nightmares 05/26/2015 None anxiety Onset of Symptom during adulthood 05/26/2015 None anxiety Limitation on Activities moderately limits activities 05/26/2015 None anxiety Frequency of Episodes increasing 05/26/2015 with cancer and several other family members with cancer anxiety Significant Family History anxiety disorder 05/26/2015 None anxiety Significant Medical Conditions precipitating event for anxiety (PTSD) 05/26/2015 None anxiety Triggers stress 05/26/2015 None anxiety Alleviating Factors medication 05/26/2015 None pain Location-Major on the fingers 02/16/2015 None pain Quality burning 02/16/2015 reports that pain is not unbearable now, she has Hydrocodone at home and is using Neosporin plus pain on it. pain Onset of Symptom 3 days ago 02/16/2015 None pain Pertinent Findings tenderness 02/16/2015 None pain Onset and Resolution ongoing 02/16/2015 None pain Length of Episodes _ days 02/16/2015 None pain Frequency of Episodes decreasing 02/16/2015 None pain Severity mild 02/16/2015 None pain Prior Treatments previously treated 02/16/2015 None _ Onset and Resolution ongoing 12/10/2014 here for surgical clearance for foot surgery on 12-[address] Reinoso. jaw pain Location on the right 12/10/2014 None jaw pain Quality acute 12/10/2014 None jaw pain Onset and Resolution resolved 12/10/2014 None jaw pain Onset of Symptom 1 weeks ago 12/10/2014 None abdominal pain Location in the LLQ 10/16/2014 x 3 weeks- reports coughing spell then lower abd pain with the feeling of bladder going to fall out. Has hx of bladder mesh.. Not pain, just discomfort abdominal pain Location in the RLQ 10/16/2014 None abdominal pain Quality acute 10/16/2014 None abdominal pain Onset and Resolution ongoing 10/16/2014 None abdominal pain Onset of Symptom 3 weeks ago 10/16/2014 None abdominal pain Limitation on Activities does not limit activities 10/16/2014 None abdominal pain Triggers no known associated factors 10/16/2014 None abdominal pain Pertinent Findings Denies abdominal distension 10/16/2014 None abdominal pain Pertinent Findings Denies chills 10/16/2014 None abdominal pain Pertinent Findings Denies cough 10/16/2014 None abdominal pain Pertinent Findings Denies dyspepsia 10/16/2014 None abdominal pain Pertinent Findings Denies dyspnea 10/16/2014 None abdominal pain Pertinent Findings Denies early satiety 10/16/2014 None abdominal pain Pertinent Findings Denies emesis 10/16/2014 None abdominal pain Pertinent Findings Denies fever 10/16/2014 None abdominal pain Pertinent Findings Denies heartburn 10/16/2014 None abdominal pain Pertinent Findings Denies vomiting 10/16/2014 None urinary incontinence Quality chronic 10/16/2014 None urinary incontinence Onset and Resolution ongoing 10/16/2014 None urinary incontinence Onset of Symptom 6 months ago 10/16/2014 None urinary incontinence Limitation on Activities does not limit activities 10/16/2014 None urinary incontinence Frequency of Episodes increasing 10/16/2014 None urinary incontinence Significant Medical Conditions pelvic surgery 10/16/2014 bladder life several years ago urinary incontinence Triggers stress 10/16/2014 None urinary incontinence Triggers coughing 10/16/2014 None urinary incontinence Pertinent Findings pelvic pain 10/16/2014 None abdominal pain Location in the RLQ 10/09/2014 None abdominal pain Location in the LLQ 10/09/2014 x 3 weeks- reports coughing spell then lower abd pain with the feeling of bladder going to fall out. Has hx of bladder mesh.. Not pain, just discomfort abdominal pain Onset of Symptom 3 weeks ago 10/09/2014 None urinary incontinence Onset of Symptom 6 months ago 10/09/2014 None urinary incontinence Pertinent Findings pelvic pain 10/09/2014 None urinary incontinence Quality chronic 10/09/2014 None urinary incontinence Onset and Resolution ongoing 10/09/2014 None urinary incontinence Limitation on Activities does not limit activities 10/09/2014 None urinary incontinence Frequency of Episodes increasing 10/09/2014 None urinary incontinence Significant Medical Conditions pelvic surgery 10/09/2014 bladder life several years ago urinary incontinence Triggers stress 10/09/2014 None urinary incontinence Triggers coughing 10/09/2014 None abdominal pain Quality acute 10/09/2014 None abdominal pain Onset and Resolution ongoing 10/09/2014 None abdominal pain Limitation on Activities does not limit activities 10/09/2014 None abdominal pain Triggers no known associated factors 10/09/2014 None abdominal pain Pertinent Findings Denies abdominal distension 10/09/2014 None abdominal pain Pertinent Findings Denies chills 10/09/2014 None abdominal pain Pertinent Findings Denies cough 10/09/2014 None abdominal pain Pertinent Findings Denies dyspepsia 10/09/2014 None abdominal pain Pertinent Findings Denies dyspnea 10/09/2014 None abdominal pain Pertinent Findings Denies early satiety 10/09/2014 None abdominal pain Pertinent Findings Denies emesis 10/09/2014 None abdominal pain Pertinent Findings Denies fever 10/09/2014 None abdominal pain Pertinent Findings Denies heartburn 10/09/2014 None abdominal pain Pertinent Findings Denies vomiting 10/09/2014 None hypothyroid Quality chronic 08/26/2014 None hypothyroid Onset and Resolution ongoing 08/26/2014 None hypothyroid Severity mild with subclinical signs 08/26/2014 None hypothyroid Pertinent Findings Denies coarse hair 08/26/2014 None hypothyroid Pertinent Findings Denies coarse skin 08/26/2014 None hypothyroid Pertinent Findings Denies cold skin 08/26/2014 None hypothyroid Pertinent Findings Denies dry skin 08/26/2014 None hypothyroid Triggers no known associated factors 08/26/2014 None headache Location on the right 05/16/2014 None neck pain Location on the left 05/16/2014 None neck pain Quality acute 05/16/2014 None neck pain Onset and Resolution ongoing 05/16/2014 None neck pain Onset of Symptom 1 weeks ago 05/16/2014 None neck pain Limitation on Activities does not limit activities 05/16/2014 None neck pain Frequency of Episodes on and off 05/16/2014 None neck pain Triggers no known associated factors 05/16/2014 None neck pain Alleviating Factors medication 05/16/2014 advil pm helped last night neck pain Initial treatment medication 05/16/2014 aleve daily neck pain Radiating does not radiate 05/16/2014 None neck pain Severity mild 05/16/2014 None headache Quality acute 05/16/2014 None headache Onset and Resolution ongoing 05/16/2014 None headache Onset of Symptom 1 weeks ago 05/16/2014 None headache Limitation on Activities does not limit activities 05/16/2014 None headache Frequency of Episodes unchanged 05/16/2014 None headache Triggers stress 05/16/2014 None headache Exacerbating Factors activity 05/16/2014 None headache Pertinent Findings Denies blurred vision 05/16/2014 None headache Pertinent Findings Denies decreased energy 05/16/2014 None headache Pertinent Findings Denies depressed mood 05/16/2014 None headache Pertinent Findings Denies fever 05/16/2014 None headache Pertinent Findings Denies jaw pain 05/16/2014 None headache Pertinent Findings Denies lethargy 05/16/2014 None headache Pertinent Findings Denies vomiting 05/16/2014 None headache Pertinent Findings Denies syncope 05/16/2014 None back pain Location thoracic spine 04/23/2014 None back pain Location lumbar-sacral spine 04/23/2014 None back pain Location in the right lower back area 04/23/2014 None back pain Quality intermittent 04/23/2014 None back pain Quality sharp 04/23/2014 None back pain Onset of Symptom 2 weeks ago 04/23/2014 None back pain Limitation on Activities moderately limits activities 04/23/2014 None back pain Frequency of Episodes daily 04/23/2014 None back pain Triggers no known associated factors 04/23/2014 None back pain Alleviating Factors medication 04/23/2014 alleve back pain Mechanism of injury unknown 04/23/2014 None back pain Pertinent Findings limited range of neck motion 04/23/2014 reports stiff neck back pain Pertinent Findings morning stiffness 04/23/2014 None rash Location-Extremities on the left hand 04/23/2014 poison diana rash Location-Extremities on the left foot 04/23/2014 poison diana rash Quality new 04/23/2014 None rash Quality pruritic 04/23/2014 pt using benadryl cream rash Color red 04/23/2014 None rash Pertinent Findings itching 04/23/2014 None headache Quality intermittent 04/23/2014 None headache Quality aching 04/23/2014 None headache Quality dull 04/23/2014 None headache Location on the right 04/23/2014 None headache Location in the frontal area 04/23/2014 None headache Onset of Symptom 2 weeks ago 04/23/2014 None headache Pertinent Findings Denies dizziness 04/23/2014 None headache Pertinent Findings dyspnea 04/23/2014 a little with walking headache Pertinent Findings Denies facial pain 04/23/2014 None headache Pertinent Findings Denies facial weakness 04/23/2014 None headache Pertinent Findings Denies lightheadedness 04/23/2014 None headache Pertinent Findings Denies nausea 04/23/2014 None neck pain Location in the midline 04/23/2014 None neck pain Quality intermittent 04/23/2014 pt reports stiffness /pt changed pillows but that didn't help neck pain Onset of Symptom 2 weeks ago 04/23/2014 None neck pain Pertinent Findings cough 04/23/2014 first thing in the am neck pain Pertinent Findings Denies ear pain 04/23/2014 None neck pain Pertinent Findings Denies facial pain 04/23/2014 None neck pain Pertinent Findings Denies facial weakness 04/23/2014 None neck pain Pertinent Findings Denies left arm numbness 04/23/2014 None neck pain Pertinent Findings limited range of neck motion 04/23/2014 None neck pain Pertinent Findings Denies right arm numbness 04/23/2014 None neck pain Pertinent Findings Denies right arm weakness 04/23/2014 None arthropod bite Location diffusely 04/23/2014 left groin/back/right bicep area arthropod bite Pertinent Findings Denies erythema 04/23/2014 None sinus congestion Onset of Symptom 1 weeks ago 04/23/2014 None sinus congestion Pertinent Findings cough 04/23/2014 in the am-dry sinus congestion Pertinent Findings Denies dysphagia 04/23/2014 None sinus congestion Pertinent Findings Denies facial pain 04/23/2014 None sinus congestion Pertinent Findings Denies fever 04/23/2014 None sore throat Location diffusely 01/21/2014 None sore throat Quality acute 01/21/2014 None sore throat Onset of Symptom 1 days ago 01/21/2014 None sore throat Pertinent Findings ill contacts 01/21/2014 None sore throat Pertinent Findings hoarseness 01/21/2014 None sore throat Pertinent Findings fever 01/21/2014 None sore throat Onset and Resolution ongoing 01/21/2014 None sore throat Limitation on Activities does not limit oral intake 01/21/2014 None sore throat Frequency of Episodes increasing 01/21/2014 None sore throat Triggers swallowing 01/21/2014 None anxiety Quality constant 12/05/2013 None anxiety Pertinent Findings Denies insomnia 12/05/2013 None anxiety Pertinent Findings Denies dyspnea 12/05/2013 None anxiety Pertinent Findings nausea 12/05/2013 None anxiety Pertinent Findings restlessness 12/05/2013 None anxiety Pertinent Findings upset stomach 12/05/2013 None anxiety Pertinent Findings Denies vomiting 12/05/2013 None anxiety Onset and Resolution ongoing 12/05/2013 None anxiety Onset of Symptom during adulthood 12/05/2013 None hypothyroid Quality chronic 12/05/2013 None hypothyroid Onset and Resolution ongoing 12/05/2013 None hypothyroid Severity mild with subclinical signs 12/05/2013 None hypothyroid Pertinent Findings Denies coarse hair 12/05/2013 None hypothyroid Pertinent Findings Denies cold skin 12/05/2013 None hypothyroid Pertinent Findings Denies dry skin 12/05/2013 None hypothyroid Pertinent Findings Denies coarse skin 12/05/2013 None Hospital Follow Up _ pain 11/05/2013 under shoulder blade and chest the took breath away Hospital Follow Up Quality improving 11/05/2013 None Hospital Follow Up Severity moderate 11/05/2013 None Hospital Follow Up Pertinent Findings Denies pain 11/05/2013 None hypothyroid Location at the level of the thyroid 10/15/2013 None hypothyroid Onset and Resolution ongoing 10/15/2013 None fatigue Onset and Resolution ongoing 03/13/2013 complains of stress with husbands illnes fatigue Limitation on Activities moderately limits activities 03/13/2013 None fatigue Pertinent Findings depressed mood 03/13/2013 None fatigue Pertinent Findings Denies dyspnea 03/13/2013 None fatigue Pertinent Findings Denies edema 03/13/2013 None fatigue Pertinent Findings insomnia 03/13/2013 None fatigue Quality worsening 03/13/2013 None fatigue Triggers stress. 03/13/2013 Elsa's has metastatic cancer, was recently told that his cancer metastatis has worsened. depression Onset and Resolution ongoing 10/04/2012 None depression Pertinent Findings Denies failure to thrive 10/04/2012 None depression Pertinent Findings Denies helplessness 10/04/2012 None depression Pertinent Findings Denies hopelessness 10/04/2012 None depression Pertinent Findings anxiety 10/04/2012 retiring in 52 days depression Pertinent Findings Denies depressed mood 10/04/2012 None depression Alleviating Factors medication 10/04/2012 None depression Quality chronic 10/04/2012 None hypothyroid Quality chronic 10/04/2012 None hypothyroid Onset and Resolution ongoing 10/04/2012 None hypothyroid Severity mild with subclinical signs 10/04/2012 None hypothyroid Pertinent Findings Denies coarse hair 10/04/2012 None hypothyroid Pertinent Findings Denies coarse skin 10/04/2012 None hypothyroid Pertinent Findings Denies cold skin 10/04/2012 None hypothyroid Pertinent Findings Denies dry skin 10/04/2012 None anxiety Onset of Symptom 2 weeks ago 08/22/2011 None anxiety Quality acute 08/22/2011 None anxiety Onset and Resolution ongoing 08/22/2011 None anxiety Triggers stress 08/22/2011 has metastatic renal cell carcinoma depression Quality chronic 08/22/2011 None depression Quality worsening 08/22/2011 None depression Onset and Resolution ongoing 08/22/2011 None depression Limitation on Activities moderately limits activities 08/22/2011 but at times is incapacitating depression Triggers stress 08/22/2011 has metastatic renal cell carcinoma chest pain/pressure Location stabbing 06/17/2011 None chest pain/pressure Location in the substernal area 06/17/2011 None chest pain/pressure Quality pressure 06/17/2011 None chest pain/pressure Triggers stress 06/17/2011 None chest pain/pressure Triggers emotional stress 06/17/2011 None headache Onset of Symptom 7 months ago 06/17/2011 None headache Location in the left occipital area 06/17/2011 None headache Location in the right occipital area 06/17/2011 None headache Location in the left frontal area 06/17/2011 None headache Quality pressure 06/17/2011 None headache Alleviating Factors medication 06/17/2011 pt takes excedrin extra strength to relieve headaches shortness of breath Onset of Symptom 7 months ago 06/17/2011 None chest pain/pressure Onset of Symptom 7 months ago 06/17/2011 The pt states that when this started, her husbsnd was diagnosed with renal cell carcinoma, needed a bypass prior to surgery, then had his kidney removed. shortness of breath Quality chest tightness 06/17/2011 occurs when she has chest pain, she states that the shortness of breath is an acute, a breathless sensation. chest pain/pressure Radiating the back 06/17/2011 left back, has an ache chest pain/pressure Quality sharp 06/17/2011 None chest pain/pressure Radiating the neck 06/17/2011 a squeezing sensation in the neck- does not seem to be associated to the times that she has the chest pain chest pain/pressure Location on the left side of on the chest 06/17/2011 None chest pain/pressure Limitation on Activities does not limit activities 06/17/2011 None chest pain/pressure Scale of 1(mild) to 10(severe) 6 06/17/2011 None chest pain/pressure Length of Episodes 10 seconds 06/17/2011 None chest pain/pressure Length of Episodes 5 minutes 06/17/2011 None shortness of breath Quality breathlessness 06/17/2011 None shortness of breath Triggers no known associated factors 06/17/2011 None headache Onset and Resolution ongoing 06/17/2011 None headache Quality tension 06/17/2011 neck muscles are tight.. She has changed pillows, and excedrin helps the headaches. Advance Directives No Advance Directive data Encounters Encounter Performer Location Codes Date ([id number] EST. PATIENT, LEVEL IV Diagnosis: Pelvic and perineal pain[ICD10: R10.2] Diagnosis: Acute vaginitis[ICD10: N76.0] Suma Alvarado MD, [facility] CPT-4: 48087 02/16/2017 ([id number]) 85772 EST. PATIENT, LEVEL III Diagnosis: Postprocedural hypothyroidism[ICD10: E89.0] Diagnosis: Major depressive disorder, recurrent, moderate[ICD10: F33.1] [facility] CPT-4: 53184 02/06/2017 ([id number] 68571 EST. PATIENT, LEVEL III Diagnosis: Generalized anxiety disorder[ICD10: F41.1] Elina Alvarado MD, [facility] CPT-4: 50621 10/12/2016 ([id number]) 31423 EST. PATIENT, LEVEL III Diagnosis: Cough[ICD10: R05] Diagnosis: Acute upper respiratory infection, unspecified[ICD10: J06.9] Suma Alvarado MD, [facility] CPT-4: 89291 09/05/2016 ([id number]) 17292 EST. PATIENT, LEVEL III Diagnosis: Generalized anxiety disorder[ICD10: F41.1] Diagnosis: Major depressive disorder, recurrent, moderate[ICD10: F33.1] Diagnosis: Postprocedural hypothyroidism[ICD10: E89.0] Elina Alvarado MD, [facility] CPT-4: 59027 06/21/2016 ([id number]) 66105 EST. PATIENT, LEVEL III Diagnosis: Major depressive disorder, recurrent, moderate[ICD10: F33.1] Elina Alvarado MD, [facility] CPT-4: 73649 05/24/2016 ([id number]) 90641 EST. PATIENT, LEVEL III Diagnosis: Major depressive disorder, recurrent, moderate[ICD10: F33.1] Elina Alvarado MD, [facility] CPT-4: 72530 05/10/2016 ([id number]) 21424 EST. PATIENT, LEVEL III Diagnosis: Generalized anxiety disorder[ICD10: F41.1] Diagnosis: Major depressive disorder, recurrent, moderate[ICD10: F33.1] Suma Alvarado MD, [facility] CPT-4: 88715 05/03/2016 ([id number]) 47911 EST. PATIENT, LEVEL III Diagnosis: Cough[ICD10: R05] Diagnosis: Acute upper respiratory infection, unspecified[ICD10: J06.9] Suma Alvarado MD, [facility] CPT-4: 46295 07/23/2015 ([id number]) 14644 EST. PATIENT, LEVEL III Diagnosis: Hypothyroidism, unspecified[ICD10: E03.9] Diagnosis: Generalized anxiety disorder[ICD10: F41.1] Diagnosis: Other depressive episodes[ICD10: F32.8] Elina Alvarado MD, [facility] CPT-4: 90911 07/06/2015 ([id number]) 21602 EST. PATIENT, LEVEL IV Diagnosis: Generalized anxiety disorder[ICD10: F41.1] Diagnosis: Major depressive disorder, recurrent, unspecified[ICD10: F33.9] Elina Alvarado MD, [facility] CPT-4: 71874 05/26/2015 ([id number]) 91091 EST. PATIENT, LEVEL II Diagnosis: 2Nd degree burn of multiple fingers of right hand not including thumb[ICD9: 944.23] Suma Alvarado MD, [facility] CPT-4: 43995 02/16/2015 ([id number]) 17546 EST. PATIENT, LEVEL IV Diagnosis: Hammertoe[ICD9: 735.4] Diagnosis: Foot pain[ICD9: 729.5] Diagnosis: HYPOTHYROIDISM[ICD9: 244.9] Elina Alvarado MD, [facility] CPT-4: 55563 12/10/2014 ([id number]) 15500 EST. PATIENT, LEVEL III Diagnosis: Urinary incontinence[ICD9: 788.30] Diagnosis: Pelvic pain in female[ICD9: 625.9] Elina Alvarado MD, [facility] CPT- 4: 28288 10/16/2014 ([id number]) 40603 EST. PATIENT, LEVEL III Diagnosis: Urinary incontinence[ICD9: 788.30] Diagnosis: Pelvic pain in female[ICD9: 625.9] Suma Alvarado MD, [facility] CPT- 4: 08978 10/09/2014 ([id number]) 79288 EST. PATIENT, LEVEL III Diagnosis: HYPOTHYROIDISM[ICD9: 244.9] Elina Alvarado MD, [facility] CPT-4: 58401 08/26/2014 ([id number]) 48975 EST. PATIENT, LEVEL III Diagnosis: Neck pain[ICD9: 723.1] Diagnosis: Muscle tension headache[ICD9: 307.81] Suma Alvarado MD, [facility] CPT-4: 00234 05/16/2014 ([id number]) 64397 EST. PATIENT, LEVEL IV Diagnosis: Arthropod bite[ICD9: 919.4] Diagnosis: Poison diana dermatitis[ICD9: 692.6] Diagnosis: Arthralgia[ICD9: 719.40] Diagnosis: Myalgia[ICD9: 729.1] Elina Alvarado MD, [facility] CPT-4: 19032 04/23/2014 ([id number]) 70883 EST. PATIENT, LEVEL III Diagnosis: ACUTE URI[ICD9: 465.9] Diagnosis: COUGH[ICD9: 786.2] Suma Alvarado MD, [facility] CPT-4: 92381 01/21/2014 ([id number]) 71048 EST. PATIENT, LEVEL III Diagnosis: HYPOTHYROIDISM[ICD9: 244.9] Diagnosis: GENERALIZED ANXIETY DISEASE[ICD9: 300.02] Elina Alvarado MD, [facility] CPT-4: 34146 12/05/2013 ([id number]) 44089 EST. PATIENT, LEVEL III Diagnosis: GENERALIZED ANXIETY DISEASE[ICD9: 300.02] Diagnosis: DEPRESSIVE DISORDER NEC[ICD9: 311] Elina Alvarado MD, [facility] CPT- 4: 87381 11/05/2013 ([id number]) 67151 EST. PATIENT, LEVEL III Diagnosis: HYPOTHYROIDISM[ICD9: 244.9] Elina Alvarado MD, [facility] CPT-4: 12650 10/15/2013 ([id number]) Miscellaneous no charge Diagnosis: Colon cancer screening[ICD9: V76.51] Elina Alvarado MD, [facility] CPT- 4: 50597 10/10/2013 ([id number]) 67003 EST. PATIENT, LEVEL IV Diagnosis: HYPOTHYROIDISM[ICD9: 244.9] Diagnosis: DEPRESSIVE DISORDER NEC[ICD9: 311] Diagnosis: GENERALIZED ANXIETY DISEASE[ICD9: 300.02] Diagnosis: HYPERLIPIDEMIA[ICD9: 272.4] Elina Alvarado MD, [facility] CPT-4: 62039 03/13/2013 ([id number]) 37151 EST. PATIENT, LEVEL IV Diagnosis: HYPERLIPIDEMIA[ICD9: 272.4] Diagnosis: HYPOTHYROIDISM[ICD9: 244.9] Diagnosis: GENERALIZED ANXIETY DISEASE[ICD9: 300.02] Diagnosis: DEPRESSIVE DISORDER NEC[ICD9: 311] Elina Alvarado MD, [facility] CPT- 4: 87256 10/04/2012 ([id number]) 52205 EST. PATIENT, LEVEL III Diagnosis: VICTOR HUGO (generalized anxiety disorder)[ICD9: 300.02] Diagnosis: Chronic depression[ICD9: 311] Elina Alvarado MD, [facility] CPT-4: 25048 08/22/2011 [id number] EST. PATIENT, LEVEL IV Diagnosis: CHEST PAIN NEC[ICD9: 786.59] Diagnosis: HYPERLIPIDEMIA[ICD9: 272.4] Diagnosis: POSTSURGICAL HYPOTHYROIDISM[ICD9: 244.0] [facility] CPT-4: 03182 06/17/2011 Plan of Care Planned Activity Notes Codes Status Date Patient Education: Patient Medication Summary Completed 06/07/2017 Visit Plan: Pelvic pain-UA negative-pap done today in the office-will start patient on flagyl for bacterial vaginosis-instructed patient to call if symptoms do not resolve or if any worse. Patient verbalized understanding of plan. 02/16/2017 Appointment: Suma Choi WPtel: [facility] [place][note 2]0 [phone] (30 min) Complex 02/16/2017 Patient Education: Patient Medication Summary Completed 02/16/2017 Care Plan: PAP Pending 02/16/2017 Visit Plan: Hypothyroidism - pt with chronic hypothyroidism, continue with current medication, will monitor pt to signs or symptoms of lack of adequate supplementation. Pt is to continue with current dose of medication unless directed otherwise. Check labs at regular intervals wither q 3 months or q 6 months based on previous levels of control.Chronic Depression and anxiety - the pt has symptoms of chronic anxiety and depression that have been fairly well controlled since the last office visit. The pt has expected periods of exacerbation with abatement of the symptoms with change in situational exposure. No change in current medications. 02/06/2017 Appointment: Elina Alvarado WPtel: [facility] [place][note 2]5 [facility] [place] (15 min) Moderate 02/06/2017 Patient Education: Patient Medication Summary Completed 02/06/2017 Visit Plan: Medicare Exam - today we discussed the patients past history, immunizations, preventative exams/evaluations - colonoscopy, fecal occult blood testing, routine labs for renal function, glucose, cholesterol, osteoporosis evaluations, cardiovascular testing and cancer screenings. We have also discussed mental health and the signs/symptoms of depression. The patient was advised of home safety evaluations and the need to make sure that as the aging process continues, we need to be aware of different ways to make the home a safer place to reside. The patient has also been counseled that exercise is necessary - and of utmost importance as we age to help decrease fall risk and to maintain independece in the home.Today we discussed the need for the patient to create paperwork for Advanced directives as well as for the patient to provide this office with a copy of her DOPA paperwork for health care surrogate. 11/17/2016 Appointment: Gina Kern WPtel: [phone] [facility] [place] [facility] - Annual Wellness Visit 11/17/2016 Patient Education: Patient Medication Summary Completed 11/17/2016 Visit Plan: Chronic Depression and anxiety - the pt has symptoms of chronic anxiety and depression that have been fairly well controlled since the last office visit. The pt has expected periods of exacerbation with abatement of the symptoms with change in situational exposure. No change in current medications. 10/12/2016 Appointment: Elina Alvarado WPtel: [phone] [facility] (15 min) Moderate 10/12/2016 Patient Education: Patient Medication Summary Completed 10/12/2016 [phone] [place] (10 min) Simple 09/05/2016 Patient Education: Patient Medication Summary Completed 09/05/2016 Visit Plan: Hypothyroidism - pt with chronic hypothyroidism, continue with current medication, will monitor pt to signs or symptoms of lack of adequate supplementation. Pt is to continue with current dose of medication unless directed otherwise. Check labs at regular intervals wither q 3 months or q 6 months based on previous levels of control.Depression - improved symptoms - continue with lexapro 06/21/2016 Appointment: Elina Alvarado WPtel: [phone] [facility] [place] (15 min) Moderate 06/21/2016 Patient Education: Patient Medication Summary Completed 06/21/2016 Visit Plan: Depression - improved with lexapro - continue with current treatment and counseling. 05/24/2016 Appointment: Elina Alvarado WPtel: [phone] [facility] [place] (15 min) Moderate 05/24/2016 Patient Education: Patient Medication Summary Completed 05/24/2016 Visit Plan: Depression - improved on the Lexapro - stop ativan - start on xanax 05/10/2016 Appointment: Elina Alvarado WPtel: [phone] [facility] (15 min) Moderate 05/10/2016 Patient Education: Patient Medication Summary Completed 05/10/2016 Visit Plan: Anxiety/depression - the patient has uncontrolled anxiety and will benefit from an SSRI on a daily basis to attempt control of the symptoms of anxiety (tachycardia, overwhelming sensations, stress, insomnia, etc). I also believe that the patient will benefit from very low dose of prn benzodiazepine. Pt is aware of the risks and benefits of treatment with the above medications. 05/03/2016 Patient Education: Patient Medication Summary Completed 05/03/2016 Appointment: Suma Choi WPtel: [phone] [phone] (15 min) Moderate 02/26/2016 Visit Plan: Medicare exam - today we discussed the patients past history, immunizations, preventative exams/evaluations - colonoscopy, fecal occult blood testing, routine labs for renal function, glucose, cholesterol, osteoporosis evaluations, cardiovascular testing and cancer screenings. We have also discussed mental health and the signs/symptoms of depression. The patient was advised of home safety evaluations and the need to make sure that as the aging process continues, we need to be aware of different ways to make the home a safer place to reside. The patient has also been counseled that exercise is necessary - and of utmost importance as we age to help decrease fall risk and to maintain independece in the home.Jecwgwucwu-urnqdapmzomu-rittep to wellbutrin Pneumonia 13 administered today in the office 11/13/2015 Visit Plan: Medicare exam - today we discussed the patients past history, immunizations, preventative exams/evaluations - colonoscopy, fecal occult blood testing, routine labs for renal function, glucose, cholesterol, osteoporosis evaluations, cardiovascular testing and cancer screenings. We have also discussed mental health and the signs/symptoms of depression. The patient was advised of home safety evaluations and the need to make sure that as the aging process continues, we need to be aware of different ways to make the home a safer place to reside. The patient has also been counseled that exercise is necessary - and of utmost importance as we age to help decrease fall risk and to maintain independece in the home.Pvftggouti-tyquznjxabxa-seqrml to wellbutrin Pneumonia 13 administered today in the office 11/13/2015 Appointment: [facility] - Annual Wellness Visit 11/13/2015 Patient Education: Patient Medication Summary Completed 11/13/2015 Patient Education: Obesity Completed 11/13/2015 Care Plan: SCREENINGMAMMOGRAPHYDIGITAL LOINC : 77530-8 Ordered 11/13/2015 Appointment: Lab Draw 08/10/2015 Visit Plan: URI - Pt advised to increase fluids, vitamin C. Discussed natural and expected course of this diagnosis and need to alert me if symtpoms do not follow expected course, or if any worse. RX sent to patient's pharmacy. Kenalog injection today in the office. 07/23/2015 Patient Education: Patient Medication Summary Completed 07/23/2015 Visit Plan: Hypothyroidism - pt with chronic hypothyroidism, continue with current medication, will monitor pt to signs or symptoms of lack of adequate supplementation. Pt is to continue with current dose of medication unless directed otherwise. Check labs at regular intervals wither q 3 months or q 6 months based on previous levels of control.Chronic Depression and anxiety - the pt has symptoms of chronic anxiety and depression that have been fairly well controlled since the last office visit. The pt has expected periods of exacerbation with abatement of the symptoms with change in situational exposure. No change in current medications. 07/06/2015 Appointment: Elina Alvarado WPtel: [address] [place], [place] [id number] (30 min) [facility] 07/06/2015 Patient Education: Patient Medication Summary Completed 07/06/2015 Visit Plan: Anxiety and depression uncontrolled-Dr Alvarado in to evaluate patient- plan to add buspar 5mg 1/2 tab twice daily. Instructed patient to call if symptoms uncontrolled or do not improve. Pt is aware of the risks and benefits of treatment with the above medications. Patient verbalized understanding of plan. 05/26/2015 Patient Education: Patient Medication Summary Completed 05/26/2015 Visit Plan: 2nd degree burn of right 2nd and 3rd fingers-dressing change today in the office-continue with current treatment as discussed-instructed patient to call for any signs/symptoms of infection or other concerns. Patient verbalized understanding of plan. 02/16/2015 Patient Education: Patient Medication Summary Completed 02/16/2015 Visit Plan: Kathy - Foot pain - pt to have surgery on 12/15/14, Dr. Reinoso to take pt to surgery - Pt is medically cleared for surgical intervention on her foot.Pt has chronic hypothyroidism, depression and anxiety - needs to continue her medications upon discharge. 12/10/2014 Appointment: Elina Alvarado WPtel: [address] [place] [address] Surgical Clearance 12/10/2014 Patient Education: Patient Medication Summary Completed 12/10/2014 Visit Plan: Urinary incontinence and Pelvic discomfort - recommended pt to have evaluation by Dr. Brandt - pt agreeable to referral. Pt is to call if abdominal pain does not improve. 10/16/2014 Appointment: Elina Alvarado WPtel: [address] [place] [address] Follow up 10/16/2014 Patient Education: Patient Medication Summary Completed 10/16/2014 Care Plan: Referral Order SNOMED-CT : [id number] Ordered 10/16/2014 Patient Education: Patient Medication Summary Completed 10/10/2014 Visit Plan: Pelvic pain-history of mesh implant-recommend CT abd/pelvis to evaluate for any abnormality-refer to Dr Woods if pain does not improveUrinary incontinence-check UA with C&S if indicated 10/09/2014 Patient Education: Patient Medication Summary Completed 10/09/2014 Care Plan: CT ABD & PELV 1/> REGNS LOINC : 34954-4 Ordered 10/09/2014 Visit Plan: Hypothyroidism - pt with chronic hypothyroidism, continue with current medication, will monitor pt to signs or symptoms of lack of adequate supplementation. Pt is to continue with current dose of medication unless directed otherwise. Check labs at regular intervals wither q 3 months or q 6 months based on previous levels of control. 08/26/2014 Appointment: Elina Alvarado WPtel: [address] [place], [place] [id number] Follow up 08/26/2014 Patient Education: Patient Medication Summary Completed 08/26/2014 Visit Plan: Neck pain-muscle tightness-recommend anti inflammatories as directed- samples of vimovo provided and instructed on use. Use rice bag heat several times daily as tolerated-get supportive pillow. Call if symptoms do not resolve. 05/16/2014 Appointment: Sick 05/16/2014 Patient Education: Patient Medication Summary Completed 05/16/2014 Patient Education: .Cervicalgia Neck Pain Completed 05/16/2014 Visit Plan: Tick Bite - pt given script for treatment of infected tick bite, call for symptoms of worsening infection or nonhealing.Poison Diana - pt is to use topical treatments as directed. Pt is cleanse clothing in hot water with soap, and call if symptoms do not improve or if they worsen.Pt would like a screening colonoscope - pt is not up-to-date with screening. 04/23/2014 Appointment: Elina Alvarado WPtel: [address] [place], [place] [id number] Sick 04/23/2014 Patient Education: Patient Medication Summary Completed 04/23/2014 Care Plan: Referral Order SNOMED-CT : [id number] Ordered 04/23/2014 Appointment: Nurse Visit 04/15/2014 Patient Education: Patient Medication Summary Completed 04/15/2014 Appointment: Elina Alvarado WPtel: [address] [place], [place] [id number] [place] Injection 02/11/2014 Patient Education: Patient Medication Summary Completed 02/11/2014 Visit Plan: URI - Pt advised to increase fluids, vitamin C. Discussed natural and expected course of this diagnosis and need to alert me if symtpoms do not follow expected course, or if any worse. RX sent to patient's pharmacy. Kenalog injection today in the office. 01/21/2014 Patient Education: Patient Medication Summary Completed 01/21/2014 Visit Plan: Hypothyroidism - pt with chronic hypothyroidism, continue with current medication, will monitor pt to signs or symptoms of lack of adequate supplementation. Pt is to continue with current dose of medication unless directed otherwise. Check labs at regular intervals wither q 3 months or q 6 months based on previous levels of control.Anxiety - stable - no change in current treatment. 12/05/2013 Appointment: Elina Alvarado WPtel: [facility][note 2]6 [facility] Follow up 12/05/2013 Patient Education: Patient Medication Summary Completed 12/05/2013 Visit Plan: Anxiety - the patient has uncontrolled anxiety and will benefit from an SSRI on a daily basis to attempt control of the symptoms of anxiety (tachycardia, overwhelming sensations, stress, insomnia, etc). I also believe that the patient will benefit from very low dose of prn benzodiazepine. Pt is aware of the risks and benefits of treament with the above medications. 11/05/2013 Appointment: Elina Alvarado WPtel[facility] [address] [facility] [address] Follow up 11/05/2013 Patient Education: Patient Medication Summary Completed 11/05/2013 Visit Plan: Well Adult Female - exam completed. Pap and breast exam completed. Pt will be called with results of her testing. She was advised to continue with yearly annual exams. Safe sex practices discussed during office visit today. Call if any abnormal gynecologic issues during the next year, otherwise, RTC yearly or prn. Hypothyroidism - pt with chronic hypothyroidism, continue with current medication, will monitor pt to signs or symptoms of lack of adequate supplementation. Pt is to continue with current dose of medication unless directed otherwise. Check labs at regular intervals wither q 3 months or q 6 months based on previous levels of control. 10/15/2013 Appointment: Elina Alvarado WPtel: [facility] [place][note 2]5 [facility] Well Woman 10/15/2013 Patient Education: Patient Medication Summary Completed 10/15/2013 Patient Education: Patient Medication Summary Completed 10/10/2013 Visit Plan: Medicare Exam - today we discussed the patients past history, immunizations, preventative exams/evaluations - colonoscopy, fecal occult blood testing, routine labs for renal function, glucose, cholesterol, osteoporosis evaluations, cardiovascular testing and cancer screenings. We have also discussed mental health and the signs/symptoms of depression. The patient was advised of home safety evaluations and the need to make sure that as the aging process continues, we need to be aware of different ways to make the home a safer place to reside. The patient has also been counseled that exercise is necessary - and of utmost importance as we age to help decrease fall risk and to maintain independece in the home.Today we discussed the need for the patient to create paperwork for Advanced directives as well as for the patient to provide this office with a copy of her DOPA paperwork for health care surrogate. 09/30/2013 Appointment: Elina Alvarado WPtel: [facility] [place][note 2]8 [facility] [facility] - Initial Preventive Physical Exam 09/30/2013 Patient Education: Patient Medication Summary Completed 09/30/2013 Appointment: HugoElina lr WPtel: [address] [facility] [facility] - Initial Preventive Physical Exam 09/11/2013 Visit Plan: Hypothyroidism - pt with chronic hypothyroidism, continue with current medication, will monitor pt to signs or symptoms of lack of adequate supplementation. Pt is to continue with current dose of medication unless directed otherwise. Check labs at regular intervals wither q 3 months or q 6 months based on previous levels of control.Supratheraputic synthroid with low tsh - recommended decrease in dose of synthroid to 100mcg daily.Hyperlipidemia - uncontrolled because pt stopped her cholesterol medication.Recommended pt to start on fish oil and niacin since she had myalgias with lipitor.Anxiety and Depression - situational - pt with sick significant other. Recommended pt to increase her lexapro to 20mg daily ( she prefers to take 1/2 pill in morning and 1/2 pill in evening). Pt also given refill of ativan for prn use. 03/13/2013 Appointment: Elina Alvarado WPtel: [facility] [place][note 2]9 [facility] Follow up 03/13/2013 Patient Education: Patient Medication Summary Completed 03/13/2013 Visit Plan: Hyperlipidemia - pt has been counseled about appropriate diet, exercise, and need for low fat food choices. I have discussed the need for the patient to take medications as prescribed. If the patient has negative side effects from the medication, they are to CALL the office and not abruptly discontinue the medication without discussion with a practicioner in the office. We will check labs in 3-6 months for follow up on the patient's chronic medical problem and to assure normal liver response to medications. Hypothyroidism - pt with chronic hypothyroidism, continue with current medication, will monitor pt to signs or symptoms of lack of adequate supplementation. Pt is to continue with current dose of medication unless directed otherwise. Check labs at regular intervals wither q 3 months or q 6 months based on previous levels of control. Chronic Depression and anxiety - the pt has symptoms of chronic anxiety and depression that have been fairly well controlled since the last office visit. The pt has expected periods of exacerbation with abatement of the symptoms with change in situational exposure. No change in current medications. 10/04/2012 Appointment: Elina Alvarado WPtel: [address] [place] [address] Follow up 10/04/2012 Patient Education: Patient Medication Summary Completed 10/04/2012 Visit Plan: Anxiety - the patient has uncontrolled anxiety and will benefit from an SSRI on a daily basis to attempt control of the symptoms of anxiety (tachycardia, overwhelming sensations, stress, insomnia, etc). I also believe that the patient will benefit from very low dose of prn benzodiazepine. Pt is aware of the risks and benefits of treament with the above medications. Depression - uncontrolled - Pt has been counseled about the diagnosis of depression, the potential causes, and risks associated with the diagnosis. The pt denies suicidal ideation, or plans. The patient has been counseled about treatment options, and understands the risks associated with treatment of depression, as well as the risks associated with NOT treating the depression.I believe the pt will benefit from medical intervention and an antidepressant has been appropriately prescribed for this patient.Pt has been advised to increase her lexapro to 1mg in AM and 20mg at hs, continue with valium, she is to only use the ativan on a PRN basis for severe anxiety attacks. 08/22/2011 Appointment: Elina Alvarado WPtel: [address] [place] [address] [place] Other 08/22/2011 Patient Education: Patient Medication Summary Completed 08/22/2011 Visit Plan: check labsappointment with dr jennifer dickerson, echocardiogramthyroid ultrasoundif the chest pain becomes acute, worsens, or does not go away, go to the emergency roomHYPERLIPIDEMIA - CONTINUE WITH CURRENT TREATMENT.DISCUSSED DIET CHANGES, NEED LOW FAT DIET.HYPOTHYROIDISM - CONTINUE WITH CURRENT MEDICATIONS, [place]OR[place] THYROID ULTRASOUND 06/17/2011 Appointment: Elina Alvarado WPtel: [address] [place], [place] [id number] Other 06/17/2011 Patient Education: Patient Medication Summary Completed 06/17/2011 Referral: Raimundo Brandt WPtel: Referral Appointment Requested Referral: Dr. Phelps WPtel: Referral Initiated Instructions Comment . Anxiety - the patient has uncontrolled anxiety and will benefit from an SSRI on a daily basis to attempt control of the symptoms of anxiety (tachycardia, overwhelming sensations, stress, insomnia, etc). I also believe that the patient will benefit from very low dose of prn benzodiazepine. Pt is aware of the risks and benefits of treament with the above medications. . Hypothyroidism - pt with chronic hypothyroidism, continue with current medication, will monitor pt to signs or symptoms of lack of adequate supplementation. Pt is to continue with current dose of medication unless directed otherwise. Check labs at regular intervals wither q 3 months or q 6 months based on previous levels of control. Supratheraputic synthroid with low tsh - recommended decrease in dose of synthroid to 100mcg daily. Hyperlipidemia - uncontrolled because pt stopped her cholesterol medication. Recommended pt to start on fish oil and niacin since she had myalgias with lipitor. Anxiety and Depression - situational - pt with sick significant other. Recommended pt to increase her lexapro to 20mg daily ( she prefers to take 1/2 pill in morning and 1/2 pill in evening). Pt also given refill of ativan for prn use. . Hypothyroidism - pt with chronic hypothyroidism, continue with current medication, will monitor pt to signs or symptoms of lack of adequate supplementation. Pt is to continue with current dose of medication unless directed otherwise. Check labs at regular intervals wither q 3 months or q 6 months based on previous levels of control. Chronic Depression and anxiety - the pt has symptoms of chronic anxiety and depression that have been fairly well controlled since the last office visit. The pt has expected periods of exacerbation with abatement of the symptoms with change in situational exposure. No change in current medications. . Hypothyroidism - pt with chronic hypothyroidism, continue with current medication, will monitor pt to signs or symptoms of lack of adequate supplementation. Pt is to continue with current dose of medication unless directed otherwise. Check labs at regular intervals wither q 3 months or q 6 months based on previous levels of control. Chronic Depression and anxiety - the pt has symptoms of chronic anxiety and depression that have been fairly well controlled since the last office visit. The pt has expected periods of exacerbation with abatement of the symptoms with change in situational exposure. No change in current medications. STOP LEXAPRO START WELLBUTRIN 75MG TWICE DAILY . Medicare exam - today we discussed the patients past history, immunizations, preventative exams/evaluations - colonoscopy, fecal occult blood testing, routine labs for renal function, glucose, cholesterol, osteoporosis evaluations, cardiovascular testing and cancer screenings. We have also discussed mental health and the signs/symptoms of depression. The patient was advised of home safety evaluat ions and the need to make sure that as the aging process continues, we need to be aware of different ways to make the home a safer place to reside. The patient has also been counseled that exercise is necessary - and of utmost importance as we age to help decrease fall risk and to maintain independece in the home. Gpgkkpolon-vuynwphanhsz-yeemdg to wellbutrin Pneumonia 13 administered today in the office STOP LEXAPRO START WELLBUTRIN 75MG TWICE DAILY . Medicare exam - today we discussed the patients past history, immunizations, preventative exams/evaluations - colonoscopy, fecal occult blood testing, routine labs for renal function, glucose, cholesterol, osteoporosis evaluations, cardiovascular testing and cancer screenings. We have also discussed mental health and the signs/symptoms of depression. The patient was advised of home safety evaluat ions and the need to make sure that as the aging process continues, we need to be aware of different ways to make the home a safer place to reside. The patient has also been counseled that exercise is necessary - and of utmost importance as we age to help decrease fall risk and to maintain independece in the home. Qdayuoxxtn-ewxrbtbyzyjs-ijfymk to wellbutrin Pneumonia 13 administered today in the office . Well Adult Female - exam completed. Pap and breast exam completed. Pt will be called with results of her testing. She was advised to continue with yearly annual exams. Safe sex practices discussed during office visit today. Call if any abnormal gynecologic issues during the next year, otherwise, RTC yearly or prn. Hypothyroidism - pt with chronic hypothyroidism, continue with current medication, will monitor pt to signs or symptoms of lack of adequate supplementation. Pt is to continue with current dose of medication unless directed otherwise. Check labs at regular intervals wither q 3 months or q 6 months based on previous levels of control. . Medicare Exam - today we discussed the patients past history, immunizations, preventative exams/evaluations - colonoscopy, fecal occult blood testing, routine labs for renal function, glucose, cholesterol, osteoporosis evaluations, cardiovascular testing and cancer screenings. We have also discussed mental health and the signs/symptoms of depression. The patient was advised of home safety evaluations and the need to make sure that as the aging process continues, we need to be aware of different ways to make the home a safer place to reside. The patient has also been counseled that exercise is necessary - and of utmost importance as we age to help decrease fall risk and to maintain independece in the home. Today we discussed the need for the patient to create paperwork for Advanced directives as well as for the patient to provide this office with a copy of her DOPA paperwork for health care surrogate. . Kathy - Foot pain - pt to have surgery on 12/15/14, Dr. Reinoso to take pt to surgery - Pt is medically cleared for surgical intervention on her foot. Pt has chronic hypothyroidism, depression and anxiety - needs to continue her medications upon discharge. . Depression - improved on the Lexapro - stop ativan - start on xanax . 2nd degree burn of right 2nd and 3rd fingers-dressing change today in the office-continue with current treatment as discussed-instructed patient to call for any signs/symptoms of infection or other concerns. Patient verbalized understanding of plan. . Hypothyroidism - pt with chronic hypothyroidism, continue with current medication, will monitor pt to signs or symptoms of lack of adequate supplementation. Pt is to continue with current dose of medication unless directed otherwise. Check labs at regular intervals wither q 3 months or q 6 months based on previous levels of control. Anxiety - stable - no change in current treatment. ROCEPHIN INJECTION TODAY IN THE OFFICE, START ZPACK TODAY PHENERGAN WITH CODEINE COUGH SYRUP . URI - Pt advised to increase fluids, vitamin C. Discussed natural and expected course of this diagnosis and need to alert me if symtpoms do not follow expected course, or if any worse. RX sent to patient's pharmacy. Kenalog injection today in the office. LEXAPRO 20MG 1/2 TAB DAILY X 1 WEEK THEN INCREASE TO A FULL TAB DAILY INCREASE YOUR ATIVAN TO THREE TIMES DAILY REFER TO NICOLAS MARTÍNEZ FOR COUNSELING . Anxiety/depression - the patient has uncontrolled anxiety and will benefit from an SSRI on a daily basis to attempt control of the symptoms of anxiety (tachycardia, overwhelming sensations, stress, insomnia, etc). I also believe that the patient will benefit from very low dose of prn benzodiazepine. Pt is aware of the risks and benefits of treatment with the above medications. . Hypothyroidism - pt with chronic hypothyroidism, continue with current medication, will monitor pt to signs or symptoms of lack of adequate supplementation. Pt is to continue with current dose of medication unless directed otherwise. Check labs at regular intervals wither q 3 months or q 6 months based on previous levels of control. . Depression - improved with lexapro - continue with current treatment and counseling. . Tick Bite - pt given script for treatment of infected tick bite, call for symptoms of worsening infection or nonhealing. Poison Diana - pt is to use topical treatments as directed. Pt is cleanse clothing in hot water with soap, and call if symptoms do not improve or if they worsen. Pt would like a screening colonoscope - pt is not up-to-date with screening. . Hypothyroidism - pt with chronic hypothyroidism, continue with current medication, will monitor pt to signs or symptoms of lack of adequate supplementation. Pt is to continue with current dose of medication unless directed otherwise. Check labs at regular intervals wither q 3 months or q 6 months based on previous levels of control. Depression - improved symptoms - continue with lexapro . Chronic Depression and anxiety - the pt has symptoms of chronic anxiety and depression that have been fairly well controlled since the last office visit. The pt has expected periods of exacerbation with abatement of the symptoms with change in situational exposure. No change in current medications. . Anxiety - the patient has uncontrolled anxiety and will benefit from an SSRI on a daily basis to attempt control of the symptoms of anxiety (tachycardia, overwhelming sensations, stress, insomnia, etc). I also believe that the patient will benefit from very low dose of prn benzodiazepine. Pt is aware of the risks and benefits of treament with the above medications. Depression - uncontrolled - Pt has been counseled about the diagnosis of depression, the potential causes, and risks associated with the diagnosis. The pt denies suicidal ideation, or plans. The patient has been counseled about treatment options, and understands the risks associated with treatment of depression, as well as the risks associated with NOT treating the depression. I believe the pt will benefit from medical intervention and an antidepressant has been appropriately prescribed for this patient. Pt has been advised to increase her lexapro to 1mg in AM and 20mg at hs, continue with valium, she is to only use the ativan on a PRN basis for severe anxiety attacks. . Pelvic pain-history of mesh implant-recommend CT abd/pelvis to evaluate for any abnormality-refer to Dr Woods if pain does not improve Urinary incontinence-check UA with C&S if indicated . Neck pain-muscle tightness-recommend anti inflammatories as directed-samples of vimovo provided and instructed on use. Use rice bag heat several times daily as tolerated-get supportive pillow. Call if symptoms do not resolve. . Medicare Exam - today we discussed the patients past history, immunizations, preventative exams/evaluations - colonoscopy, fecal occult blood testing, routine labs for renal function, glucose, cholesterol, osteoporosis evaluations, cardiovascular testing and cancer screenings. We have also discussed mental health and the signs/symptoms of depression. The patient was advised of home safety evaluations and the need to make sure that as the aging process continues, we need to be aware of different ways to make the home a safer place to reside. The patient has also been counseled that exercise is necessary - and of utmost importance as we age to help decrease fall risk and to maintain independece in the home. Today we discussed the need for the patient to create paperwork for Advanced directives as well as for the patient to provide this office with a copy of her DOPA paperwork for health care surrogate. . check labs appointment with dr ambrocio chest xray, echocardiogram thyroid ultrasound if the chest pain becomes acute, worsens, or does not go away, go to the emergency room HYPERLIPIDEMIA - CONTINUE WITH CURRENT TREATMENT. DISCUSSED DIET CHANGES, NEED LOW FAT DIET. HYPOTHYROIDISM - CONTINUE WITH CURRENT MEDICATIONS, CHECH THYROID ULTRASOUND . Hyperlipidemia - pt has been counseled about appropriate diet, exercise, and need for low fat food choices. I have discussed the need for the patient to take medications as prescribed. If the patient has negative side effects from the medication, they are to CALL the office and not abruptly discontinue the medication without discussion with a practicioner in the office. We will check labs in 3-6 months for follow up on the patient's chronic medical problem and to assure normal liver response to medications. Hypothyroidism - pt with chronic hypothyroidism, continue with current medication, will monitor pt to signs or symptoms of lack of adequate supplementation. Pt is to continue with current dose of medication unless directed otherwise. Check labs at regular intervals wither q 3 months or q 6 months based on previous levels of control. Chronic Depression and anxiety - the pt has symptoms of chronic anxiety and depression that have been fairly well controlled since the last office visit. The pt has expected periods of exacerbation with abatement of the symptoms with change in situational exposure. No change in current medications. Pap Repeat UA if painful urination persists Flagyl -sent to [facility] if symptoms do not resolve completely . Pelvic pain-UA negative-pap done today in the office-will start patient on flagyl for bacterial vaginosis-instructed patient to call if symptoms do not resolve or if any worse. Patient verbalized understanding of plan. BUSPIRONE 5MG 1/2 TAB TWICE DAILY . Anxiety and depression uncontrolled-Dr Alvarado in to evaluate patient-plan to add buspar 5mg 1/2 tab twice daily. Instructed patient to call if symptoms uncontrolled or do not improve. Pt is aware of the risks and benefits of treatment with the above medications. Patient verbalized understanding of plan. keflex-dillons . URI - Pt advised to increase fluids, vitamin C. Discussed natural and expected course of this diagnosis and need to alert me if symtpoms do not follow expected course, or if any worse. RX sent to patient's pharmacy. Kenalog injection today in the office. . Urinary incontinence and Pelvic discomfort - recommended pt to have evaluation by Dr. Brandt - pt agreeable to referral. Pt is to call if abdominal pain does not improve.
--- OUTSIDE RECORDS SUMMARY | 2018-12-27 08:59 | XMS REPORT | CCD ---
Author Author [facility]ina [facility]ado Organization [facility] Address [address] [place] [address] Phone Care Team Providers Care Director Of Retail Merchandising Name Role Phone PP Unavailable CCM Unavailable Summary Purpose Interface Exchange Insurance Providers Payer name Policy type / Coverage type Covered republican ID Effective Begin Date Effective End Date WPS Medicare Part B [id number] 2014 Unknown [facility] [id number] 2014 Unknown Family history Sister Diagnosis Age [...] Description Effective Dates Tobacco history SNOMED CT: 3104241 Former smoker quit 2 years ago, social smoker, 1 pack per month 200709/30/2013 Employment 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 Unknown Has never used illegal drugs 06/17/2011 Allergies, Adverse Reactions, Alerts Allergies, Adverse Reactions, Alerts data not found Past Medical History Illness Codes Condition Status Onset Date Resolved Date Acute vaginitis ICD-9: 623.5 ICD-10: N76.0 Active 02/16/2017 Unknown Pelvic and perineal pain ICD-9: [id number] ICD-10: R10.2 Active 02/16/2017 Unknown Major depressive [...] ICD- 9: 625.9 Inactive 10/10/2014 Unknown Poison gilmer dermatitis ICD- 9: 692.6 Inactive 04/23/2014 Unknown [...] incontinence ICD- 9: 788.30 Active 10/10/2014 Unknown VAC STREP PNEUMONIAE-FLU ICD-9: V06.6 ICD-10: Z23 Active 04/15/2014 04/15/2014 Welcome to Medicare preventive visit ICD-9: V70.0 Active 09/30/2013 Unknown Hyperlipidemia Unknown Active 06/17/2011 Unknown Problems Condition Codes Effective Dates Condition Status Acute vaginitis ICD-9: 623.5 ICD-10: N76.0 02/16/2017 Active Pelvic and perineal pain ICD-9: [id number] ICD-10: R10.2 02/16/2017 Active Major depressive disorder, [...] female ICD- 9: 625.9 10/10/2014 Inactive Poison gilmer dermatitis ICD- 9: 692.6 04/23/2014 Inactive POSTSURGICAL [...] Urinary incontinence ICD- 9: 788.30 10/10/2014 Active VAC STREP PNEUMONIAE-FLU ICD-9: V06.6 ICD-10: Z23 04/15/2014 Active Welcome to Medicare preventive visit ICD-9: V70.0 09/30/2013 Active Hyperlipidemia Unknown 06/17/2011 Active Medications Medication Codes Instructions Start Date Stop Date Status Fill Instructions Flagyl 500 mg tablet RxNorm: 045940 1 Tablet(s) PO TID 02/16/2017 02/22/2017 Active Synthroid 112 mcg tablet RxNorm: 051632 TAKE 1 TABLET BY MOUTH DAILY EXCEPT FOR TAKE 1/2 TABLET ON MONDAY, MONDAY, AND Monday12/23/2016 04/13/2017 Active Xanax 0.5 mg tablet RxNorm: 543496 1 Tablet(s) PO QID as needed anxiety 12/23/2016 03/22/2017 Active Lexapro 20 mg tablet RxNorm: 293785 TAKE ONE TABLET BY MOUTH DAILY 11/29/2016 05/27/2017 Active Zithromax Z-Que 250 mg tablet RxNorm: 963551 1 Tablet(s) PO UD 09/05/2016 09/09/2016 Inactive zpack Kenalog 40 mg/mL suspension for injection RxNorm: 1585085 1 Milliliter(s) Inj 09/05/2016 09/05/2016 Inactive Lipitor 10 mg tablet RxNorm: 941293 TAKE ONE TABLET BY MOUTH EVERY DAY 08/30/2016 02/25/2017 Active Ativan 1 mg tablet RxNorm: 321299 1 Tablet(s) PO Q6 PRN as needed TAKE ONE TABLET BY MOUTH THREE TIMES A DAY OR EVERY 6 HOURS NEEDED FOR ANXIETY 08/30/2016 12/22/2016 Inactive Synthroid 112 mcg tablet RxNorm: 709441 1 Tablet(s) PO daily except one-half tab on Mon/Mon/Sat 08/23/2016 12/12/2016 Inactive will refill when needed Lexapro 20 mg tablet RxNorm: 466304 TAKE ONE TABLET BY MOUTH DAILY 08/02/2016 11/28/2016 Inactive Synthroid 112 mcg tablet RxNorm: 000922 1 Tablet(s) PO daily except 1/2 tab wed and sat 05/25/2016 08/22/2016 Inactive will refill when needed Xanax 0.5 mg tablet RxNorm: 094204 1 Tablet(s) PO QID as needed anxiety 05/10/2016 08/29/2016 Inactive Lexapro 20 mg tablet RxNorm: 223026 1 Tablet(s) PO daily 05/03/2016 07/31/2016 Inactive 1/2 tab x 1 week then increase to a full pill daily buspirone 5 mg tablet RxNorm: 564943 TAKE ONE-HALF TABLET BY MOUTH TWICE A DAY 03/15/2016 05/02/2016 Inactive Synthroid 112 mcg tablet RxNorm: 347919 1 Tablet(s) PO daily 02/25/2016 05/24/2016 Inactive Ativan 1 mg tablet RxNorm: 074716 Tablet(s) TAKE ONE TABLET BY MOUTH THREE TIMES A DAY OR EVERY 6 HOURS NEEDED FOR ANXIETY 02/04/2016 05/08/2016 Inactive Synthroid 125 mcg tablet RxNorm: 860339 TAKE ONE TABLET BY MOUTH TWICE WEEKLY 01/11/2016 02/24/2016 Inactive Synthroid 112 mcg tablet RxNorm: 481466 TAKE ONE TABLET BY MOUTH FIVE DAYS A WEEK 01/11/2016 02/24/2016 Inactive Wellbutrin 75 mg tablet RxNorm: 050958 TAKE ONE TABLET BY MOUTH TWICE A DAY 01/11/2016 05/02/2016 Inactive Ativan 1 mg tablet RxNorm: 705166 TAKE ONE TABLET BY MOUTH THREE TIMES A DAY OR EVERY 6 HOURS NEEDED 12/03/2015 12/27/2015 Inactive Lipitor 10 mg tablet RxNorm: 443978 TAKE ONE TABLET BY MOUTH EVERY DAY 12/03/2015 08/28/2016 Inactive Ativan 1 mg tablet RxNorm: 628764 Tablet(s) TAKE ONE TABLET BY MOUTH THREE TIMES A DAY AND TAKE ONE TABLET BY MOUTH EVERY 6 HOURS NEEDED FOR ANXIETY 12/03/2015 12/02/2015 Inactive (Response to an electronic controlled substance refill request - RxReferenceNumber: [id number]) Wellbutrin 75 mg tablet RxNorm: 929500 1 Tablet(s) PO BID 11/13/2015 01/10/2016 Inactive Ativan 1 mg tablet RxNorm: 632677 Tablet(s) TAKE ONE TABLET BY MOUTH THREE TIMES A DAY AND TAKE ONE TABLET BY MOUTH EVERY 6 HOURS NEEDED FOR ANXIETY 09/23/2015 10/30/2015 Inactive (Response to an electronic controlled substance refill request - RxReferenceNumber: [id number]) buspirone 5 mg tablet RxNorm: 365692 TAKE ONE-HALF TABLET BY MOUTH TWICE A DAY 08/18/2015 03/01/2016 Inactive ceftriaxone 500 mg solution for injection RxNorm: 3062705 Inj 07/23/2015 07/23/2015 Inactive Zithromax Z-Que 250 mg tablet RxNorm: 728186 1 Tablet(s) PO UD 07/23/2015 07/27/2015 Inactive ZPACK buspirone 5 mg tablet RxNorm: 098993 1 Tablet(s) PO daily 07/06/2015 10/03/2015 Inactive buspirone 5 mg tablet RxNorm: 076666 1/2 Tablet(s) PO BID 05/26/2015 07/05/2015 Inactive Lipitor 10 mg tablet RxNorm: 715883 TAKE ONE TABLET BY MOUTH EVERY DAY 04/23/2015 10/19/2015 Inactive Ativan 1 mg tablet RxNorm: 242622 Tablet(s) TAKE ONE TABLET BY MOUTH THREE TIMES A DAY AND TAKE ONE TABLET BY MOUTH EVERY 6 HOURS NEEDED FOR ANXIETY 02/23/2015 04/01/2015 Inactive (Response to an electronic controlled substance refill request - RxReferenceNumber: [id number]) Synthroid 125 mcg tablet RxNorm: 311507 1 Tablet(s) PO UD twice weekly 12/10/2014 06/07/2015 Inactive Synthroid 112 mcg tablet RxNorm: 190735 1 Tablet(s) PO UD TAKE ONE TABLET BY MOUTH 5 days a week 12/10/2014 12/04/2015 Inactive Lexapro 20 mg tablet RxNorm: 308762 1 Tablet(s) PO daily 11/26/2014 11/12/2015 Inactive Lipitor 10 mg tablet RxNorm: 348594 TAKE ONE TABLET BY MOUTH EVERY DAY 10/21/2014 04/18/2015 Inactive amoxicillin 500 mg capsule RxNorm: 923315 1 Capsule(s) PO TID 10/15/2014 10/21/2014 Inactive take probiotic BID x 7 days during abt period amoxicillin 500 mg capsule RxNorm: 907803 1 Capsule(s) PO TID 10/15/2014 10/14/2014 Inactive take probiotic BID x 7 days during abt period Ativan 1 mg tablet RxNorm: 978643 TAKE ONE TABLET BY MOUTH THREE TIMES A DAY AND TAKE ONE TABLET BY MOUTH EVERY 6 HOURS NEEDED FOR ANXIETY 08/21/2014 09/28/2014 Inactive (Response to an electronic controlled substance refill request - [id number]) Ativan 1 mg tablet RxNorm: 783364 1 Tablet(s) PO tid and Q6 PRN as needed 08/18/2014 08/21/2014 Inactive doxycycline hyclate 100 mg tablet RxNorm: 151619 1 Tablet(s) PO BID 04/23/2014 05/25/2015 Inactive prednisone 10 mg tablets in a dose pack RxNorm: 143734 1 Tablet(s) PO 02/14/2014 05/25/2015 Inactive Kenalog 40 mg/mL suspension for injection RxNorm: 9006504 1 Milliliter(s) Inj 02/11/2014 02/11/2014 Inactive Keflex 500 mg capsule RxNorm: 474258 1 Capsule(s) PO TID 01/21/2014 01/27/2014 Inactive Kenalog 40 mg/mL suspension for injection RxNorm: 5504489 Milliliter(s) Inj 01/21/2014 01/21/2014 Inactive Synthroid 112 mcg tablet RxNorm: 225892 1 Tablet(s) PO daily TAKE ONE TABLET BY MOUTH EVERY DAY 12/05/2013 11/29/2014 Inactive Ativan 1 mg tablet RxNorm: 399609 1 Tablet(s) PO Q6 PRN 11/05/2013 02/02/2014 Inactive Lexapro 20 mg tablet RxNorm: 230261 1 Tablet(s) PO daily 11/05/2013 11/04/2013 Inactive Lexapro 20 mg tablet RxNorm: 555941 1 Tablet(s) PO daily 11/05/2013 10/30/2014 Inactive Lipitor 10 mg tablet RxNorm: 655112 1 Tablet(s) PO QPM TAKE ONE TABLET BY MOUTH EVERY DAY 09/30/2013 10/20/2014 Inactive Lexapro 20 mg tablet RxNorm: 598879 1 Tablet(s) PO daily 09/30/2013 11/04/2013 Inactive Synthroid 125 mcg tablet RxNorm: 017869 1 Tablet(s) PO daily 09/10/2013 12/04/2013 Inactive Synthroid 100 mcg tablet RxNorm: 447803 1 Tablet(s) PO daily TAKE ONE TABLET BY MOUTH EVERY DAY 09/06/2013 09/09/2013 Inactive Lipitor 10 mg tablet RxNorm: 798110 Tablet(s) PO TAKE ONE TABLET BY MOUTH EVERY DAY 08/15/2013 09/29/2013 Inactive Synthroid 100 mcg tablet RxNorm: 027191 1 Tablet(s) PO daily TAKE ONE TABLET BY MOUTH EVERY DAY 04/26/2013 09/05/2013 Inactive Ativan 1 mg tablet RxNorm: 047719 1 Tablet(s) PO Q6 PRN 03/13/2013 No Stop Date Active Synthroid 100 mcg tablet RxNorm: 447119 1 Tablet(s) PO daily TAKE ONE TABLET BY MOUTH EVERY DAY 03/13/2013 04/25/2013 Inactive Lexapro 20 mg tablet RxNorm: 848969 1/2 Tablet(s) PO BID 03/13/2013 09/29/2013 Inactive Synthroid 112 mcg tablet RxNorm: 705059 Tablet(s) PO TAKE ONE TABLET BY MOUTH EVERY DAY 01/08/2013 03/12/2013 Inactive Lexapro 20 mg tablet RxNorm: 998525 Tablet(s) PO TAKE 1/2 TABLET EVERY MORNING AND TAKE ONE TABLET BY MOUTH AT BEDTIME 10/18/2012 03/12/2013 Inactive Lipitor 20 mg tablet RxNorm: 292901 1/2 Tablet(s) PO daily 08/20/2012 02/04/2013 Inactive Lipitor 10 mg tablet RxNorm: 700116 1 Tablet(s) PO daily 05/23/2012 08/19/2012 Inactive Synthroid 112 mcg tablet RxNorm: 563280 1 Tablet(s) PO daily 12/16/2011 01/07/2013 Inactive Synthroid 112 mcg Tab RxNorm: 789578 1 Tablet(s) PO daily 12/16/2011 12/15/2011 Inactive Lipitor 10 mg tablet RxNorm: 493632 1 Tablet(s) PO daily 12/15/2011 05/22/2012 Inactive Synthroid 112 mcg Tab RxNorm: 276775 1 Tablet(s) PO every other day 11/09/2011 12/15/2011 Inactive every other day Synthroid 112 mcg Tab RxNorm: 303019 1 Tablet(s) PO every other day 10/21/2011 11/08/2011 Inactive every other day Synthroid 125 mcg Tab RxNorm: 964065 1 Tablet(s) PO every other day 10/21/2011 12/16/2011 Inactive every other day Lexapro 20 mg tablet RxNorm: 155784 1.5 Tablet(s) PO daily 1/2 pill in AM and 1 pill at bedtime 09/22/2011 04/18/2012 Inactive 1/2 q am 1 q hs diazepam 5 mg Tab RxNorm: 399548 1 Tablet(s) PO daily 1 tab bid prn 09/21/2011 05/17/2012 Inactive Lexapro 20 mg Tab RxNorm: 770181 1.5 Tablet(s) PO daily 1/2 pill in AM and 1 pill at bedtime 08/22/2011 09/21/2011 Inactive diazepam 5 mg Tab RxNorm: 207483 1 Tablet(s) PO daily 1 tab bid prn 06/20/2011 09/20/2011 Inactive diazepam 5 mg Tab RxNorm: 810190 1 Tablet(s) PO daily 1 tab bid prn 06/20/2011 06/19/2011 Inactive diazepam 5 mg Tab RxNorm: 959375 1 Tablet(s) PO daily 1 tab bid prn 06/17/2011 06/19/2011 Inactive Lipitor 10 mg Tab RxNorm: 566132 1 Tablet(s) PO daily 05/31/2011 11/26/2011 Inactive diazepam 5 mg Tab RxNorm: 147250 1 Tablet(s) PO BID 1 tab bid prn 04/21/2011 05/20/2011 Inactive Calcium 600 + D(3) Oral RxNorm: Oral No Start Date Active Menest 0.625 mg Tab RxNorm: 036343 1 Tablet(s) PO daily No Start Date 06/16/2011 Inactive Synthroid 125 mcg tablet RxNorm: 285802 Tablet(s) PO No Start Date 09/09/2013 Inactive Ativan 1 mg tablet RxNorm: 083271 1 Tablet(s) PO Q6 PRN No Start Date 08/21/2011 Inactive aspirin 81 mg Tab, Delayed Release RxNorm: 1552111 1 Tablet(s) PO daily No Start Date 09/29/2013 Inactive Lexapro 10 mg Tab RxNorm: 326771 1 Tablet(s) PO daily No Start Date 08/22/2011 Inactive prednisone 10 mg tablets in a dose pack RxNorm: 530990 1 Tablet(s) PO No Start Date 02/13/2014 Inactive Synthroid 112 mcg Tab RxNorm: 877933 Tablet(s) PO tu/thurs/sat/sun No Start Date 10/20/2011 Inactive lorazepam 1 mg Tab RxNorm: 811250 Tablet(s) PO Q6 PRN No Start Date 11/04/2013 Inactive Lipitor 20 mg tablet RxNorm: 829994 1/2 Tablet(s) PO daily No Start Date 08/20/2012 Inactive Vitamin D2 oral RxNorm: oral No Start Date 09/29/2013 Inactive Synthroid 125 mcg Tab RxNorm: 387033 1 Tablet(s) PO No Start Date 10/20/2011 Inactive synthroid 112 mcg mon Medication Administered Medication Codes Instructions Start Date Status Kenalog 40 mg/mL suspension for injection RxNorm: 9283713 1Milliliter 09/05/2016 No longer Active ceftriaxone 500 mg solution for injection RxNorm: 7068584 07/23/2015 No longer Active Kenalog 40 mg/mL suspension for injection RxNorm: 9083755 1Milliliter 02/11/2014 No longer Active Kenalog 40 mg/mL suspension for injection RxNorm: 0537374 Milliliter 01/21/2014 No longer Active Immunizations Vaccine Codes Date Status Pneumococcal (Adult) CVX: 133 11/13/2015 completed Influenza CVX: 141 04/15/2014 completed Pneumococcal (Adult) CVX: 33 04/15/2014 completed PPD Unknown 10/10/2013 completed Influenza CVX: 141 09/30/2013 completed Assessments Condition Codes Effective Dates Pelvic and perineal pain ICD-10: R10.2 ICD-9: [id number] 02/16/2017 Acute vaginitis ICD-10: N76.0 ICD-9: 623.5 [...] 04/23/2014 Arthropod bite ICD-9: 919.4 04/23/2014 Poison gilmer dermatitis ICD-9: 692.6 04/23/2014 Vac strep pneumoniae-flu [...] Visit Reason For Visit Effective Dates Notes urinary frequency 02/16/2017 depression 02/06/2017 Annual Medicare Wellness Exam 11/17/2016 depression 10/12/2016 sore throat 09/05/2016 depression 06/21/2016 depression 05/24/2016 depression 05/10/2016 depression 05/03/2016 Annual Medicare Wellness Exam 11/13/2015 cough 07/23/2015 medication follow up 07/06/2015 medication follow up 05/26/2015 pain 02/16/2015 _ 12/10/2014 abdominal pain 10/16/2014 abdominal pain 10/09/2014 _ 08/26/2014 lab follow up headache 05/16/2014 back pain 04/23/2014 pt reports posion gilmer on left hand and feet vaccination against influenza 04/15/2014 sore throat 01/21/2014 anxiety 12/05/2013 Hospital Follow Up 11/05/2013 went to ER well woman exam (65+ years) 10/15/2013 fatigue 03/13/2013 depression 10/04/2012 anxiety 08/22/2011 chest pain/pressure 06/17/2011 Results Observation Observation Code Item Item Code Result Date Tsh Ord6 hTSH II 1.07 uIU/mL 11/17/2016 Free T4 Csc046 FREE T4 1.02 ng/dL 11/17/2016 Lipid Ord30 CHOL 195 mg/dL 10/13/2016 Lipid Ord30 HDL 68.0 mg/dl 10/13/2016 Lipid Ord30 TRIG 69 mg/dL 10/13/2016 Lipid Ord30 LDL 113 mg/dL 10/13/2016 Lipid Ord30 C/HDL 2.9 Ratio 10/13/2016 Comp Metabolic Ytq672 NA 138 mEq/L 10/13/2016 Comp Metabolic Owx969 K 4.4 mEq/L 10/13/2016 Comp Metabolic Gjc924 CL 102 mEq/L 10/13/2016 Comp Metabolic Ria592 CO2 29.0 mEq/L 10/13/2016 Comp Metabolic Vur508 ANION GAP 11 10/13/2016 Comp Metabolic Msx666 GLUCOSE 85 mg/dL 10/13/2016 Comp Metabolic Ado547 Creat 1.0 mg/dL 10/13/2016 Comp Metabolic Wqu247 eGFR 59 ml/min/1.73m2 10/13/2016 Comp Metabolic Aza389 BUN 21 mg/dL 10/13/2016 Comp Metabolic Gkw273 B/C Ratio 21.2 Ratio 10/13/2016 Comp Metabolic Qyv245 CALCIUM 9.7 mg/dL 10/13/2016 Comp Metabolic Zvp637 ALK PHOS 70 U/L 10/13/2016 Comp Metabolic Bdd348 AST(SGOT) 17 U/L 10/13/2016 Comp Metabolic Uos995 ALT(SGPT) 14 U/L 10/13/2016 Comp Metabolic Rpp901 BILI T 0.9 mg/dL 10/13/2016 Comp Metabolic Jvp829 ALBUMIN 4.4 g/dL 10/13/2016 Comp Metabolic Gwq396 TPRO 7.1 g/dL 10/13/2016 Comp Metabolic Ewq312 GLOB 2.7 g/dL 10/13/2016 Comp Metabolic Ulu812 A/G Ratio 1.6 Ratio 10/13/2016 Comp Metabolic Osk181 Osmo 278 mOsmo 10/13/2016 Cbc With Differential [...] 29.7 pg 10/13/2016 Cbc With Differential Ord2 [place]% 7.7 % 10/13/2016 Cbc With Differential Ord2 [...] 1.43 K/ul 10/13/2016 Cbc With Differential Ord2 [place] ABS# 0.5 K/ul 10/13/2016 Cbc With Differential Ord2 Eos ABS# 0.1 K/ul 10/13/2016 Cbc With Differential Ord2 Baso ABS# 0.0 K/ul 10/13/2016 Free T4 Uly791 FREE T4 1.31 ng/dL 08/17/2016 Tsh Ord6 hTSH II 0.64 uIU/mL 08/17/2016 Free T4 Lnb082 FREE T4 1.49 ng/dL 05/10/2016 Comp Metabolic Gzi643 NA 139 mEq/L 05/10/2016 Comp Metabolic Yci661 K 4.5 mEq/L 05/10/2016 Comp Metabolic Eme897 CL 104 mEq/L 05/10/2016 Comp Metabolic Nax126 CO2 24.0 mEq/L 05/10/2016 Comp Metabolic Pvl140 ANION GAP 16 05/10/2016 Comp Metabolic Pbz997 GLUCOSE 87 mg/dL 05/10/2016 Comp Metabolic Oob592 Creat 0.9 mg/dL 05/10/2016 Comp Metabolic Dmc123 eGFR 71 ml/min/1.73m2 05/10/2016 Comp Metabolic Syo335 BUN 12 mg/dL 05/10/2016 Comp Metabolic Cad653 B/C Ratio 14.1 Ratio 05/10/2016 Comp Metabolic Qzt203 CALCIUM 9.6 mg/dL 05/10/2016 Comp Metabolic Nfk472 ALK PHOS 89 U/L 05/10/2016 Comp Metabolic Isy135 AST(SGOT) 17 U/L 05/10/2016 Comp Metabolic Oie251 ALT(SGPT) 17 U/L 05/10/2016 Comp Metabolic Zxh294 BILI T 0.9 mg/dL 05/10/2016 Comp Metabolic Mrm913 ALBUMIN 4.2 g/dL 05/10/2016 Comp Metabolic Npc518 TPRO 6.7 g/dL 05/10/2016 Comp Metabolic Tol957 GLOB 2.5 g/dL 05/10/2016 Comp Metabolic Tej723 A/G Ratio 1.7 Ratio 05/10/2016 Comp Metabolic Pun551 Osmo 277 mOsmo 05/10/2016 Cbc With Differential [...] 23.8 % 05/10/2016 Cbc With Differential Ord2 [place]% 8.3 % 05/10/2016 Cbc With Differential Ord2 [...] 1.57 K/ul 05/10/2016 Cbc With Differential Ord2 [place] ABS# 0.6 K/ul 05/10/2016 Cbc With Differential Ord2 Eos ABS# 0.2 K/ul 05/10/2016 Cbc With Differential Ord2 Baso ABS# 0.0 K/ul 05/10/2016 Tsh Ord6 hTSH II 0.03 uIU/mL 05/10/2016 Free T4 Ind455 FREE T4 1.67 ng/dL 02/18/2016 Tsh Ord6 hTSH II 0.06 uIU/mL 02/18/2016 Comp Metabolic Fxi120 NA 138 mEq/L 02/18/2016 Comp Metabolic Mkn765 K 4.5 mEq/L 02/18/2016 Comp Metabolic Ano672 CL 104 mEq/L 02/18/2016 Comp Metabolic Wrk838 CO2 26.0 mEq/L 02/18/2016 Comp Metabolic Zqq387 ANION GAP 13 02/18/2016 Comp Metabolic Mbs339 GLUCOSE 88 mg/dL 02/18/2016 Comp Metabolic Sla822 Creat 0.9 mg/dL 02/18/2016 Comp Metabolic Dzf857 eGFR 69 ml/min/1.73m2 02/18/2016 Comp Metabolic Evp179 BUN 14 mg/dL 02/18/2016 Comp Metabolic Vql605 B/C Ratio 16.1 Ratio 02/18/2016 Comp Metabolic Vpx094 CALCIUM 9.4 mg/dL 02/18/2016 Comp Metabolic Keg975 ALK PHOS 95 U/L 02/18/2016 Comp Metabolic Bwp395 AST(SGOT) 19 U/L 02/18/2016 Comp Metabolic Qfy037 ALT(SGPT) 18 U/L 02/18/2016 Comp Metabolic Hdh636 BILI T 0.7 mg/dL 02/18/2016 Comp Metabolic Dcs954 ALBUMIN 4.4 g/dL 02/18/2016 Comp Metabolic Hww493 TPRO 6.9 g/dL 02/18/2016 Comp Metabolic Nwi130 GLOB 2.5 g/dL 02/18/2016 Comp Metabolic Nze986 A/G Ratio 1.7 Ratio 02/18/2016 Comp Metabolic Iqr236 Osmo 276 mOsmo 02/18/2016 Lipid Ord30 CHOL [...] 18.8 % 02/18/2016 Cbc With Differential Ord2 [place]% 10.5 % 02/18/2016 Cbc With Differential Ord2 [...] 1.08 K/ul 02/18/2016 Cbc With Differential Ord2 [place] ABS# 0.6 K/ul 02/18/2016 Cbc With Differential Ord2 Eos ABS# 0.0 K/ul 02/18/2016 Cbc With Differential Ord2 Baso ABS# 0.0 K/ul 02/18/2016 Comp Metabolic Hdj157 NA 136 mEq/L 06/08/2015 Comp Metabolic Ucj441 K 3.9 mEq/L 06/08/2015 Comp Metabolic Mot225 CL 103 mEq/L 06/08/2015 Comp Metabolic Tmm219 CO2 25.0 mEq/L 06/08/2015 Comp Metabolic Tkh816 ANION GAP 12 06/08/2015 Comp Metabolic Kfh040 GLUCOSE 91 mg/dL 06/08/2015 Comp Metabolic Vfb095 Creat 0.9 mg/dL 06/08/2015 Comp Metabolic Pas534 eGFR 68 ml/min/1.73m2 06/08/2015 Comp Metabolic Uae734 BUN 10 mg/dL 06/08/2015 Comp Metabolic Idl104 B/C Ratio 11.4 Ratio 06/08/2015 Comp Metabolic Uqr387 CALCIUM 9.4 mg/dL 06/08/2015 Comp Metabolic Yhg487 ALK PHOS 88 U/L 06/08/2015 Comp Metabolic Orn866 AST(SGOT) 20 U/L 06/08/2015 Comp Metabolic Dxq122 ALT(SGPT) 18 U/L 06/08/2015 Comp Metabolic Jmt197 BILI T 0.8 mg/dL 06/08/2015 Comp Metabolic Giq234 ALBUMIN 4.4 g/dL 06/08/2015 Comp Metabolic Ebx903 TPRO 7.0 g/dL 06/08/2015 Comp Metabolic Zbw184 GLOB 2.6 g/dL 06/08/2015 Comp Metabolic Xof611 A/G Ratio 1.7 Ratio 06/08/2015 Comp Metabolic Vaq085 Osmo 271 mOsmo 06/08/2015 Tsh Ord6 hTSH [...] Ord2 RDW 14.4 % 06/08/2015 LYME EIA 5916850 LYME EIA 0.24 04/25/2014 TULAREM AB [id number] TULAREM AB <1:20 04/24/2014 RMSF IFA 4777739 IGG RMSF <1:16 04/24/2014 RMSF IFA 4288474 IGM RMSF <1:10 04/24/2014 E CHAFF AB 6408561 IGG E CHFF <1:16 04/24/2014 E CHAFF AB 8704786 IGM E CHFF <1:10 04/24/2014 ICT OCCULT 8362989 ICT OCCULT NEG 10/11/2013 Review of Systems [...] 1994 Ears/Nose/Throat oral cavity/pharynx/larynx Overall: no masses 02/06/2017 [...] normal 10/15/2013 None Full Exam - General 1994 Ears/Nose/Throat lips/teeth/gingiva Overall: benign lips 10/15/2013 None Full Exam - General 1994 Ears/Nose/Throat lips/teeth/gingiva Overall: normal dentition 10/15/2013 None Full Exam - General 1994 Ears/Nose/Throat oral cavity/pharynx/larynx Overall: hypopharynx benign 10/15/2013 [...] accomodation 09/30/2013 None Full Exam - General 1995 [...] affect 09/30/2013 None Full Exam - General 1994 Ears/Nose/Throat oral cavity/pharynx/larynx Overall: no masses 03/13/2013 None Full Exam - General 1994 Respiratory auscultation Overall: breath sounds clear bilaterally 03/13/2013 None Full Exam - General 1995 Respiratory respiratory effort/rhythm Overall: no retractions 03/13/2013 None Full Exam - General 1995 Respiratory respiratory effort/rhythm Overall: normal rate 03/13/2013 None Full Exam - General 1995 Cardiovascular extremities Overall: no clubbing 03/13/2013 None Full Exam - General 1995 Cardiovascular auscultation of heart Overall: regular rate 03/13/2013 None Full Exam - General 1995 Cardiovascular auscultation of heart Overall: normal heart sounds 03/13/2013 None Full Exam - General 1995 Abdomen abdominal exam Overall: no tenderness 03/13/2013 None Full Exam - General 1995 Abdomen abdominal exam Overall: normal bowel sounds 03/13/2013 None Full Exam - General 1995 Musculoskeletal head and neck Overall: head atraumatic 03/13/2013 None Full Exam - General 1995 Musculoskeletal head and neck Overall: cervical spine benign 03/13/2013 None Full Exam - General 1995 Neurologic gait Overall: no ataxia, no unsteadiness [...] distress 03/13/2013 None Full Exam - General 1995 Constitutional general appearance Overall: well nourished 03/13/2013 None Full Exam - General 1994 Eyes pupils and irises Overall: pupils equal, round, reactive to light and accomodation 03/13/2013 None Full Exam - General 1995 [...] nourished 10/04/2012 None Full Exam - General 1995 Constitutional general appearance Overall: well developed 10/04/2012 [...] atraumatic 10/04/2012 None Full Exam - General 1994 [...] accomodation 06/17/2011 None Procedures Procedure Codes Date PPPS, SUBSEQ VISIT CPT-4: F6660Oycfipx 11/17/2016 TRIAMCINOLONE ACET INJ NOS CPT-4: M0046Zuapsis 09/05/2016 PPPS, SUBSEQ VISIT CPT-4: D1384Iprfiaz 11/13/2015 PNEUMOCOCCAL VACC 13 STEPHANIE IM Formatting Model/CDA Sections, Assigned to/Lila Colon SNOMED CT: 87299674 CPT-4: 71436Cvxpywy 11/13/2015 ADMIN PNEUMOCOCCAL VACCINE SNOMED CT: 05216238 CPT-4: G7162Gnumqfh 11/13/2015 ROCEPHIN, PER 250 MG CPT-4: U2362Ddjacwh 07/23/2015 URINALYSIS NONAUTO W/O SCOPE CPT-4: 51852Srdxfzk 10/10/2014 ROUTINE VENIPUNCTURE CPT-4: 81942Spwbmht 04/23/2014 Pneumococcal Polysaccharide Vaccine, 23-Valent, Ad CPT-4: 42412Sbvkozu 04/15/2014 ADMIN INFLUENZA VIRUS VAC CPT-4: I1587Mdkdwzf 04/15/2014 FLU VAC NO PRSV 4 STEPHANIE 3 YRS+ CPT-4: 10198Utliaxk 04/15/2014 ADMIN PNEUMOCOCCAL VACCINE SNOMED CT: 51690271 CPT-4: X6977Simcjnz 04/15/2014 THER/PROPH/DIAG INJ SC/IM CPT-4: 92776Ksmtdau 02/11/2014 TRIAMCINOLONE ACET INJ NOS CPT-4: E2344Eauncle 02/11/2014 TRIAMCINOLONE ACET INJ NOS CPT-4: K5052Yefniko 01/21/2014 INITIAL PREVENTIVE EXAM CPT-4: P6130Zscyvmo 09/30/2013 PRESCRIP TRANSMIT VIA ERX SY CPT-4: A9803Alghmyk 03/13/2013 Vital Signs Date Vital 02/16/2017 Blood Pressure 1: 128/80 Code: 8480-6 BMI: 29.9 Code: 80304-5 Heart Rate 1: 77 bpm Height: 5'5" SpO2: 96% Weight: 179 lbs 8 oz 02/06/2017 Blood Pressure 1: 140/80 Code: 8480-6 BMI: 29.8 Code: 74239-4 Heart Rate 1: 72 bpm Height: 5'5" SpO2: 97% Weight: 179 lbs 11/17/2016 Blood Pressure 1: 130/72 Code: 8480-6 BMI: 29.6 Code: 87152-0 Heart Rate 1: 62 bpm Height: 5'5" SpO2: 98% Waist Measure (cm): 91 cm Weight: 178 lbs 10/12/2016 Blood Pressure 1: 128/78 Code: 8480-6 BMI: 28.5 Code: 72162-7 Heart Rate 1: 62 bpm Height: 5'5" SpO2: 97% Weight: 171 lbs 09/05/2016 Blood Pressure 1: 122/70 Code: 8480-6 BMI: 28.0 Code: 75789-7 Heart Rate 1: 65 bpm Height: 5'5" SpO2: 94% Weight: 168 lbs 06/21/2016 Blood Pressure 1: 120/82 Code: 8480-6 BMI: 28.3 Code: 25395-9 Heart Rate 1: 65 bpm Height: 5'5" SpO2: 97% Weight: 170 lbs 05/24/2016 Blood Pressure 1: 136/80 Code: 8480-6 BMI: 28.1 Code: 67968-8 Heart Rate 1: 71 bpm Height: 5'5" SpO2: 96% Weight: 169 lbs 05/10/2016 Blood Pressure 1: 120/82 Code: 8480-6 BMI: 27.6 Code: 68201-4 Heart Rate 1: 86 bpm Height: 5'5" SpO2: 95% Weight: 166 lbs 05/03/2016 Blood Pressure 1: 124/78 Code: 8480-6 BMI: 28.1 Code: 18408-3 Heart Rate 1: 88 bpm Height: 5'5" SpO2: 97% Weight: 169 lbs 11/13/2015 Blood Pressure 1: 130/60 Code: 8480-6 BMI: 30.0 Code: 30468-5 Heart Rate 1: 7 bpm Height: 5'5" Waist Measure (cm): 97 cm Weight: 180 lbs 07/23/2015 Blood Pressure 1: 124/70 Code: 8480-6 BMI: 29.6 Code: 39460-6 Heart Rate 1: 74 bpm Height: 5'5" SpO2: 96% Temperature: 36.7 (C) / 98.1 (F) Weight: 178 lbs 07/06/2015 Blood Pressure 1: 138/78 Code: 8480-6 BMI: 29.6 Code: 60943-0 Heart Rate 1: 84 bpm Height: 5'5" SpO2: 96% Weight: 178 lbs 05/26/2015 Blood Pressure 1: 122/80 Code: 8480-6 BMI: 29.6 Code: 30062-6 Heart Rate 1: 84 bpm Height: 5'5" Weight: 178 lbs 02/16/2015 Blood Pressure 1: 124/82 Code: 8480-6 BMI: 29.0 Code: 83145-5 Heart Rate 1: 68 bpm Height: 5'5" Weight: 174 lbs 12/10/2014 Blood Pressure 1: 112/64 Code: 8480-6 BMI: 28.6 Code: 73063-8 Heart Rate 1: 80 bpm Height: 5'5" Weight: 172 lbs 10/16/2014 Blood Pressure 1: 128/84 Code: 8480-6 Heart Rate 1: 64 bpm Weight: 172 lbs 10/09/2014 Blood Pressure 1: 136/90 Code: 8480-6 BMI: 28.6 Code: 04579-0 Heart Rate 1: 76 bpm Height: 5'5" Weight: 172 lbs 08/26/2014 Blood Pressure 1: 118/72 Code: 8480-6 BMI: 29.0 Code: 84284-0 Heart Rate 1: 76 bpm Height: 5'5" Weight: 174 lbs 05/16/2014 Blood Pressure 1: 110/72 Code: 8480-6 BMI: 29.0 Code: 99171-5 Height: 5'5" Weight: 174 lbs 04/23/2014 Blood Pressure 1: 124/70 Code: 8480-6 BMI: 29.0 Code: 55924-7 Heart Rate 1: 72 bpm Height: 5'5" Weight: 174 lbs 04/15/2014 Temperature: 36.5 (C) / 97.7 (F) 01/21/2014 Blood Pressure 1: 98/62 Code: 8480-6 BMI: 29.0 Code: 79141- 5 Heart Rate 1: 84 bpm Height: 5'5" Temperature: 37.1 (C) / 98.7 (F) Weight: 174 lbs 12/05/2013 Blood Pressure 1: 138/88 Code: 8480-6 BMI: 29.0 Code: 25941-3 Heart Rate 1: 60 bpm Height: 5'5" Weight: 174 lbs 11/05/2013 Blood Pressure 1: 118/80 Code: 8480-6 BMI: 28.8 Code: 50489-0 Heart Rate 1: 76 bpm Height: 5'5" Weight: 173 lbs 10/15/2013 Blood Pressure 1: 120/78 Code: 8480-6 BMI: 29.1 Code: 38515-4 Heart Rate 1: 88 bpm Height: 5'5" Weight: 175 lbs 09/30/2013 Blood Pressure 1: 112/84 Code: 8480-6 BMI: 29.1 Code: 94549-9 Heart Rate 1: 68 bpm Height: 5'5" Weight: 175 lbs 03/13/2013 Blood Pressure 1: 112/84 Code: 8480-6 BMI: 28.6 Code: 91803-4 Heart Rate 1: 64 bpm Height: 5'5" Weight: 173 lbs 10/04/2012 Blood Pressure 1: 120/72 Code: 8480-6 BMI: 28.0 Code: 95940-6 Heart Rate 1: 64 bpm Height: 5'5" Weight: 169 lbs 08/22/2011 Blood Pressure 1: 134/84 Code: 8480-6 BMI: 27.5 Code: 04241-3 Heart Rate 1: 68 bpm Height: 5'5" Respiratory Rate: 16 bpm Weight: 166 lbs 8 oz 06/17/2011 Blood Pressure 1: 120/76 Code: 8480-6 BMI: 27.0 Code: 57736-1 Heart Rate 1: 58 bpm Height: 5'5" [...] Location-Extremities on the left hand 04/23/2014 poison gilmer rash Location-Extremities on the left foot 04/23/2014 poison gilmer rash Quality new 04/23/2014 None rash Quality [...] data Encounters Encounter Performer Location Codes Date ([id number]) 79104 EST. PATIENT, LEVEL IV Diagnosis: Pelvic and perineal pain[ICD10: R10.2] Diagnosis: Acute vaginitis[ICD10: N76.0] Suma Alvarado MD, [facility] CPT-4: 93107 02/16/2017 ([id number]) 39209 EST. PATIENT, LEVEL III Diagnosis: Postprocedural hypothyroidism[ICD10: E89.0] Diagnosis: Major depressive disorder, recurrent, moderate[ICD10: F33.1] Elina Alvarado MD, [facility] CPT-4: 39604 02/06/2017 ([id number]) 51199 EST. PATIENT, LEVEL III Diagnosis: Generalized anxiety disorder[ICD10: F41.1] Elina Alvarado MD, [facility] CPT-4: 87628 10/12/2016 ([id number]) 12857 EST. PATIENT, LEVEL III Diagnosis: Cough[ICD10: R05] Diagnosis: Acute upper respiratory infection, unspecified[ICD10: J06.9] Suma Alvarado MD, [facility] CPT-4: 45926 09/05/2016 ([id number]) 00788 EST. PATIENT, LEVEL III Diagnosis: Generalized anxiety disorder[ICD10: F41.1] Diagnosis: Major depressive disorder, recurrent, moderate[ICD10: F33.1] Diagnosis: Postprocedural hypothyroidism[ICD10: E89.0] Elina Alvarado MD, [facility] CPT-4: 94321 06/21/2016 ([id number]) 84000 EST. PATIENT, LEVEL III Diagnosis: Major depressive disorder, recurrent, moderate[ICD10: F33.1] Elina Alvarado MD, [facility] CPT-4: 99142 05/24/2016 ([id number]) 87073 EST. PATIENT, LEVEL III Diagnosis: Major depressive disorder, recurrent, moderate[ICD10: F33.1] Elina Alvarado MD [facility] CPT-4: 27325 05/10/2016 ([id number]) 40558 EST. PATIENT, LEVEL III Diagnosis: Generalized anxiety disorder[ICD10: F41.1] Diagnosis: Major depressive disorder, recurrent, moderate[ICD10: F33.1] Suma Alvarado MD [facility] CPT-4: 45689 05/03/2016 ([id number]) 59854 EST. PATIENT, LEVEL III Diagnosis: Cough[ICD10: R05] Diagnosis: Acute upper respiratory infection, unspecified[ICD10: J06.9] Suma Alvarado MD, [facility] CPT-4: 21430 07/23/2015 ([id number]) 04510 EST. PATIENT, LEVEL III Diagnosis: Hypothyroidism, unspecified[ICD10: E03.9] Diagnosis: Generalized anxiety disorder[ICD10: F41.1] Diagnosis: Other depressive episodes[ICD10: F32.8] Elina Alvarado MD, [facility] CPT-4: 87625 07/06/2015 ([id number]) 09274 EST. PATIENT, LEVEL IV Diagnosis: Generalized anxiety disorder[ICD10: F41.1] Diagnosis: Major depressive disorder, recurrent, unspecified[ICD10: F33.9] Elina Alvarado MD, [facility] CPT-4: 91030 05/26/2015 ([id number]) 90662 EST. PATIENT, LEVEL II Diagnosis: 2Nd degree burn of multiple fingers of right hand not including thumb[ICD9: 944.23] Suma Alvarado MD, [facility] CPT-4: 45117 02/16/2015 ([id number]) 27826 EST. PATIENT, LEVEL IV Diagnosis: Hammertoe[ICD9: 735.4] Diagnosis: Foot pain[ICD9: 729.5] Diagnosis: HYPOTHYROIDISM[ICD9: 244.9] Elina Alvarado MD [facility] CPT-4: 75393 12/10/2014 ([id number]) 10779 EST. PATIENT, LEVEL III Diagnosis: Urinary incontinence[ICD9: 788.30] Diagnosis: Pelvic pain in female[ICD9: 625.9] Elina Alvarado MD [facility] CPT- 4: 52399 10/16/2014 ([id number]) 38706 EST. PATIENT, LEVEL III Diagnosis: Urinary incontinence[ICD9: 788.30] Diagnosis: Pelvic pain in female[ICD9: 625.9] Suma Alvarado MD [facility] CPT- 4: 34023 10/09/2014 ([id number]) 53016 EST. PATIENT, LEVEL III Diagnosis: HYPOTHYROIDISM[ICD9: 244.9] Elina Alvarado MD [facility] CPT-4: 00291 08/26/2014 ([id number]) 50511 EST. PATIENT, LEVEL III Diagnosis: Neck pain[ICD9: 723.1] Diagnosis: Muscle tension headache[ICD9: 307.81] Suma Alvarado MD [facility] CPT-4: 73765 05/16/2014 ([id number]) 89617 EST. PATIENT, LEVEL IV Diagnosis: Arthropod bite[ICD9: 919.4] Diagnosis: Poison gilmer dermatitis[ICD9: 692.6] Diagnosis: Arthralgia[ICD9: 719.40] Diagnosis: Myalgia[ICD9: 729.1] Elina Alvarado MD, [facility] CPT-4: 35640 04/23/2014 ([id number]) 23272 EST. PATIENT, LEVEL III Diagnosis: ACUTE URI[ICD9: 465.9] Diagnosis: COUGH[ICD9: 786.2] Suma Alvarado MD, [facility] CPT-4: 58245 01/21/2014 ([id number]) 18435 EST. PATIENT, LEVEL III Diagnosis: HYPOTHYROIDISM[ICD9: 244.9] Diagnosis: GENERALIZED ANXIETY DISEASE[ICD9: 300.02] Elina Alvarado MD, [facility] CPT-4: 09875 12/05/2013 ([id number]) 58521 EST. PATIENT, LEVEL III Diagnosis: GENERALIZED ANXIETY DISEASE[ICD9: 300.02] Diagnosis: DEPRESSIVE DISORDER NEC[ICD9: 311] Elina Alvarado MD, [facility] CPT- 4: 72834 11/05/2013 ([id number]) 54612 EST. PATIENT, LEVEL III Diagnosis: HYPOTHYROIDISM[ICD9: 244.9] RUBIA Alex MD CPT-4: 09127 10/15/2013 ([id number]) Miscellaneous no charge Diagnosis: Colon cancer screening[ICD9: V76.51] Elina Alvarado MD [facility] CPT- 4: 50417 10/10/2013 ([id number]) 34250 EST. PATIENT, LEVEL IV Diagnosis: HYPOTHYROIDISM[ICD9: 244.9] Diagnosis: DEPRESSIVE DISORDER NEC[ICD9: 311] Diagnosis: GENERALIZED ANXIETY DISEASE[ICD9: 300.02] Diagnosis: HYPERLIPIDEMIA[ICD9: 272.4] Elina Alvarado MD [facility] CPT-4: 66055 03/13/2013 ([id number]) 59276 EST. PATIENT, LEVEL IV Diagnosis: HYPERLIPIDEMIA[ICD9: 272.4] Diagnosis: HYPOTHYROIDISM[ICD9: 244.9] Diagnosis: GENERALIZED ANXIETY DISEASE[ICD9: 300.02] Diagnosis: DEPRESSIVE DISORDER NEC[ICD9: 311] Elina Alvarado MD, [facility] CPT- 4: 18542 10/04/2012 ([id number]) 79677 EST. PATIENT, LEVEL III Diagnosis: VICTOR HUGO (generalized anxiety disorder)[ICD9: 300.02] Diagnosis: Chronic depression[ICD9: 311] Elina Alvarado MD, [facility] CPT-4: 31119 08/22/2011 38919 EST. PATIENT, LEVEL IV Diagnosis: CHEST PAIN NEC[ICD9: 786.59] Diagnosis: HYPERLIPIDEMIA[ICD9: 272.4] Diagnosis: POSTSURGICAL HYPOTHYROIDISM[ICD9: 244.0] Elina Alvarado MD, [facility] CPT-4: 78467 06/17/2011 Plan of Care Planned Activity Notes Codes Status Date Visit Plan: Pelvic pain-UA negative-pap done today in the office-will start patient on flagyl for bacterial vaginosis-instructed patient to call if symptoms do not resolve or if any worse. Patient verbalized understanding of plan. 02/16/2017 [phone] ([facility] min[facility] Complex 02/16/2017 Patient Education: Patient [...] current medications. 02/06/2017 Appointment: Elina Alvarado WPtel: [phone] [facility] (15 min) Moderate 02/06/2017 Patient Education: Patient [...] care surrogate. 11/17/2016 Appointment: [phone] [facility] [place] 11/17/2016 Patient Education: [...] current medications. 10/12/2016 Appointment: Elina Alvarado WPtel: [phone] [facility] [place] (15 min) Moderate 10/12/2016 Patient Education: Patient Medication Summary Completed 10/12/2016 Appointment: Suma Choi WPtel: [phone] [phone] [place] (10 min) Simple 09/05/2016 Patient Education: [...] with lexapro 06/21/2016 Appointment: Elina Alvarado WPtel: [phone] [facility] [place] (15 min) Moderate 06/21/2016 Patient Education: Patient Medication Summary Completed 06/21/2016 Visit Plan: Depression - improved with lexapro - continue with current treatment and counseling. 05/24/2016 Appointment: Elina Alvarado WPtel: [phone] [facility] [place] (15 min) Moderate 05/24/2016 Patient Education: Patient Medication Summary Completed 05/24/2016 Visit Plan: Depression - improved on the Lexapro - stop ativan - start on xanax 05/10/2016 Appointment: Elina Alvarado WPtel: [phone] [facility] [place] (15 min) Moderate 05/10/2016 Patient Education: Patient [...] Summary Completed 05/03/2016 Appointment: Suma Choi WPtel[phone] (15 min) Moderate 02/26/2016 Visit Plan: Medicare [...] risk and to maintain independece in the home.Rabrrbnyfh-stctnzepyvrd-fsphdb to wellbutrin Pneumonia 13 administered today in [...] risk and to maintain independece in the home.Mnkysrnoyj-tcrwlferutxk-auwsup to wellbutrin Pneumonia 13 administered today in the office 11/13/2015 Appointment: [facility] - Annual Wellness Visit 11/13/2015 Patient Education: Patient Medication Summary Completed 11/13/2015 Patient Education: Obesity Completed 11/13/2015 Care Plan: SCREENINGMAMMOGRAPHYDIGITAL LOINC : 28004-6 Ordered 11/13/2015 Appointment: Lab Draw 08/10/2015 Visit [...] current medications. 07/06/2015 Appointment: [phone] ([facility] min) Complex 07/06/2015 Patient Education: Patient Medication Summary Completed [...] upon discharge. 12/10/2014 Appointment: [phone] [facility] 12/10/2014 Patient Education: Patient Medication Summary Completed 12/10/2014 Visit Plan: Urinary incontinence and Pelvic discomfort - recommended pt to have evaluation by Dr. Brandt - pt agreeable to referral. Pt is to call if abdominal pain does not improve. 10/16/2014 Appointment: Elina Alvarado WPtel: [address] [place], [place] [address] Follow up 10/16/2014 Patient Education: Patient Medication Summary Completed 10/16/2014 Care Plan: Referral Order SNOMED-CT : [id number] Ordered 10/16/2014 Patient Education: Patient Medication Summary Completed 10/10/2014 Visit Plan: Pelvic pain-history of mesh implant-recommend CT abd/pelvis to evaluate for any abnormality-refer to Dr Woods if pain does not improveUrinary incontinence-check UA with C&S if indicated 10/09/2014 Patient Education: Patient Medication Summary Completed 10/09/2014 Care Plan: CT ABD & PELV [facility] : 88578-2 Ordered 10/09/2014 Visit Plan: Hypothyroidism - pt with chronic hypothyroidism, continue with current medication, will monitor pt to signs or symptoms of lack of adequate supplementation. Pt is to continue with current dose of medication unless directed otherwise. Check labs at regular intervals wither q 3 months or q 6 months based on previous levels of control. 08/26/2014 Appointment: Elina Alvarado WPtel: [facility] [facility] 08/26/2014 Patient Education: Patient Medication [...] for symptoms of worsening infection or nonhealing.Poison Gilmer - pt is to use topical treatments as directed. Pt is cleanse clothing in hot water with soap, and call if symptoms do not improve or if they worsen.Pt would like a screening colonoscope - pt is not up-to-date with screening. 04/23/2014 Appointment: Elina Alvarado WPtel: [facility] [place] Sick 04/23/2014 Patient Education: Patient Medication Summary Completed 04/23/2014 Care Plan: Referral Order SNOMED-CT : [id number] Ordered 04/23/2014 Appointment: Nurse Visit 04/15/2014 Patient Education: Patient Medication Summary Completed 04/15/2014 Appointment: [facility]varado [facility]Ptel[phone] [phone] [place] Injection 02/11/2014 Patient Education: Patient Medication [...] current treatment. 12/05/2013 Appointment: Elina Alvarado WPtel: [address] [place], [place] [phone] Follow up 12/05/2013 Patient Education: Patient Medication [...] above medications. 11/05/2013 Appointment: Elina Alvarado WPtel: [address] [place] [address] Follow up 11/05/2013 Patient Education: Patient Medication [...] of control. 10/15/2013 Appointment: Elina Alvarado WPtel: [phone] [facility] Well Woman 10/15/2013 Patient Education: Patient Medication [...] care surrogate. 09/30/2013 Appointment: Elina Alvarado WPtel: [phone] [facility] [facility] [place] Initial Preventive Physical Exam 09/30/2013 Patient Education: Patient Medication Summary Completed 09/30/2013 Appointment: Elina Alvarado WPtel: [phone] [facility] [facility] [place] - Initial Preventive Physical Exam 09/11/2013 Visit [...] prn use. 03/13/2013 Appointment: [facility]ado [facility]el[phone] [facility] [facility] 03/13/2013 Patient Education: Patient Medication [...] current medications. 10/04/2012 Appointment: [facility]ado [phone] [facility] Follow [facility] 10/04/2012 Patient Education: Patient Medication [...] anxiety attacks. 08/22/2011 Appointment: Elina Alvarado WPtel: [address] [place], [place] [phone] Other 08/22/2011 Patient Education: Patient Medication Summary Completed 08/22/2011 Visit Plan: check labsappointment with dr jennifer dickerson, echocardiogramthyroid ultrasoundif the chest pain becomes acute, worsens, or does not go away, go to the emergency roomHYPERLIPIDEMIA - CONTINUE WITH CURRENT TREATMENT.DISCUSSED DIET CHANGES, NEED LOW FAT DIET.HYPOTHYROIDISM - CONTINUE WITH CURRENT MEDICATIONS, CHECH THYROID ULTRASOUND 06/17/2011 Appointment: Elina Alvarado WPtel: [address] [place], [place] [phone] Other 06/17/2011 Patient Education: Patient Medication Summary Completed 06/17/2011 Referral: Raimundo Brandt WPtel: Referral Appointment Requested Referral: Dr. Phelps WPtel: Referral Initiated Instructions Comment ROCEPHIN INJECTION TODAY IN THE OFFICE, START ZPACK TODAY PHENERGAN WITH CODEINE COUGH SYRUP . URI - Pt advised to increase fluids, vitamin C. Discussed natural and expected course of this diagnosis and need to alert me if symtpoms do not follow expected course, or if any worse. RX sent to patient's pharmacy. Kenalog injection today in the office. . Tick Bite - pt given script for treatment of infected tick bite, call for symptoms of worsening infection or nonhealing. Poison Gilmer - pt is to use topical treatments as directed. Pt is cleanse clothing in hot water with soap, and call if symptoms do not improve or if they worsen. Pt would like a screening colonoscope - pt is not up-to-date with screening. . Chronic Depression and anxiety - the [...] PRN basis for severe anxiety attacks. . Medicare Exam - today we discussed [...] DOPA paperwork for health care surrogate. . Neck pain-muscle tightness-recommend anti inflammatories as directed-samples of vimovo provided and instructed on use. Use rice bag heat several times daily as tolerated-get supportive pillow. Call if symptoms do not resolve. Pap Repeat UA if painful urination persists Flagyl -sent to [facility] Call if symptoms do not resolve completely . Pelvic pain-UA negative-pap done today in the office-will start patient on flagyl for bacterial vaginosis-instructed patient to call if symptoms do not resolve or if any worse. Patient verbalized understanding of plan. . Hypothyroidism - pt with chronic hypothyroidism, continue with current medication, will monitor pt to signs or symptoms of lack of adequate supplementation. Pt is to continue with current dose of medication unless directed otherwise. Check labs at regular intervals wither q 3 months or q 6 months based on previous levels of control. . Depression - improved on the Lexapro - stop ativan - start on xanax . Laurenertoe - Foot pain - pt to have surgery on 12/15/14, Dr. Reinoso to take pt to surgery - Pt is medically cleared for surgical intervention on her foot. Pt has chronic hypothyroidism, depression and anxiety - needs to continue her medications upon discharge. . Hypothyroidism - pt with chronic hypothyroidism, [...] exposure. No change in current medications. . Hyperlipidemia - pt has been counseled [...] exposure. No change in current medications. . check labs appointment with dr ambrocio chest xray, echocardiogram thyroid ultrasound if the chest pain becomes acute, worsens, or does not go away, go to the emergency room HYPERLIPIDEMIA - CONTINUE WITH CURRENT TREATMENT. DISCUSSED DIET CHANGES, NEED LOW FAT DIET. HYPOTHYROIDISM - CONTINUE WITH CURRENT MEDICATIONS, CHECH THYROID ULTRASOUND BUSPIRONE 5MG 1/2 TAB TWICE DAILY . Anxiety and depression uncontrolled-Dr Alvarado in to evaluate patient-plan to add buspar 5mg 1/2 tab twice daily. Instructed patient to call if symptoms uncontrolled or do not improve. Pt is aware of the risks and benefits of treatment with the above medications. Patient verbalized understanding of plan. . Pelvic pain-history of mesh implant-recommend CT abd/pelvis to evaluate for any abnormality-refer to Dr Woods if pain does not improve Urinary incontinence-check UA with C&S if indicated . Hypothyroidism - pt with chronic hypothyroidism, continue with current medication, will monitor pt to signs or symptoms of lack of adequate supplementation. Pt is to continue with current dose of medication unless directed otherwise. Check labs at regular intervals wither q 3 months or q 6 months based on previous levels of control. Depression - improved symptoms - continue with lexapro . Depression - improved with lexapro - continue with current treatment and counseling. LEXAPRO 20MG 1/2 TAB DAILY X 1 [...] stable - no change in current treatment. . 2nd degree burn of right 2nd and 3rd fingers-dressing change today in the office-continue with current treatment as discussed-instructed patient to call for any signs/symptoms of infection or other concerns. Patient verbalized understanding of plan. keflex[facility] . URI - Pt advised to increase fluids, vitamin C. Discussed natural and expected course of this diagnosis and need to alert me if symtpoms do not follow expected course, or if any worse. RX sent to patient's pharmacy. Kenalog injection today in the office. . Medicare Exam - today we discussed [...] DOPA paperwork for health care surrogate. . Well Adult Female - exam completed. [...] months based on previous levels of control. STOP LEXAPRO START WELLBUTRIN 75MG TWICE DAILY [...] and to maintain independece in the home. Fjxwvoezqk-kfffiyqupans-nflehk to wellbutrin Pneumonia 13 administered today in [...] and to maintain independece in the home. Iukhygsbep-vqukisgwwrle-fyhbsh to wellbutrin Pneumonia 13 administered today in the office . Hypothyroidism - pt with chronic hypothyroidism, [...] refill of ativan for prn use. . Anxiety - the patient has uncontrolled anxiety and will benefit from an SSRI on a daily basis to attempt control of the symptoms of anxiety (tachycardia, overwhelming sensations, stress, insomnia, etc). I also believe that the patient will benefit from very low dose of prn benzodiazepine. Pt is aware of the risks and benefits of treament with the above medications. . Urinary incontinence and Pelvic discomfort - recommended pt to have evaluation by Dr. Brandt - pt agreeable to referral. Pt is to call if abdominal pain does not improve.
--- OUTSIDE RECORDS SUMMARY | 2018-12-27 09:02 | XMS REPORT | CCD ---
Author Author [facility] Organization [facility] Address [address] [place] [address] Phone Care Team Providers Care Intern Architect Name Role Phone PP Unavailable CCM Unavailable Summary Purpose Interface Exchange Insurance Providers Payer name Policy type / Coverage type Covered alliance party ID Effective Begin Date Effective End Date WPS Medicare Part B [id number] 2014 Unknown [facility] [id number] 2014 Unknown Family history Sister Diagnosis Age [...] Description Effective Dates Tobacco history SNOMED CT: 8054322 Former smoker quit 2 years ago, social smoker, 1 pack per month 200709/30/2013 Employment Unknown 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 Unknown Has never used illegal drugs 06/17/2011 Allergies, Adverse Reactions, Alerts Allergies, Adverse Reactions, Alerts data not found Past Medical History Illness Codes Condition Status Onset Date Resolved Date Acute vaginitis ICD-9: 623.5 ICD-10: N76.0 Active 02/16/2017 Unknown Pelvic and perineal pain ICD-9: JNV6324 ICD-10: R10.2 Active 02/16/2017 Unknown Major depressive [...] 02/16/2017 Active Pelvic and perineal pain ICD-9: [id number] ICD-10: R10.2 02/16/2017 Active Major depressive disorder, [...] Fill Instructions Flagyl 500 mg tablet RxNorm: 051695 1 Tablet(s) PO TID 02/16/2017 02/22/2017 Active Synthroid 112 mcg tablet RxNorm: 552289 TAKE 1 TABLET BY MOUTH DAILY EXCEPT FOR TAKE 1/2 TABLET ON MONDAY, MONDAY, AND Monday12/23/2016 04/13/2017 Active Xanax 0.5 mg tablet RxNorm: 411980 1 Tablet(s) PO QID as needed anxiety 12/23/2016 03/22/2017 Active Lexapro 20 mg tablet RxNorm: 911956 TAKE ONE TABLET BY MOUTH DAILY 11/29/2016 05/27/2017 Active Zithromax Z-Que 250 mg tablet RxNorm: 963559 1 Tablet(s) PO UD 09/05/2016 09/09/2016 Inactive zpack Kenalog 40 mg/mL suspension for injection RxNorm: 7624072 1 Milliliter(s) Inj 09/05/2016 09/05/2016 Inactive Lipitor 10 mg tablet RxNorm: 949711 TAKE ONE TABLET BY MOUTH EVERY DAY 08/30/2016 02/25/2017 Active Ativan 1 mg tablet RxNorm: 566012 1 Tablet(s) PO Q6 PRN as needed TAKE ONE TABLET BY MOUTH THREE TIMES A DAY OR EVERY 6 HOURS NEEDED FOR ANXIETY 08/30/2016 12/22/2016 Inactive Synthroid 112 mcg tablet RxNorm: 492269 1 Tablet(s) PO daily except one-half tab on Mon/Mon/Sat 08/23/2016 12/12/2016 Inactive will refill when needed Lexapro 20 mg tablet RxNorm: 205217 TAKE ONE TABLET BY MOUTH DAILY 08/02/2016 11/28/2016 Inactive Synthroid 112 mcg tablet RxNorm: 316128 1 Tablet(s) PO daily except 1/2 tab wed and sat 05/25/2016 08/22/2016 Inactive will refill when needed Xanax 0.5 mg tablet RxNorm: 966009 1 Tablet(s) PO QID as needed anxiety 05/10/2016 08/29/2016 Inactive Lexapro 20 mg tablet RxNorm: 304789 1 Tablet(s) PO daily 05/03/2016 07/31/2016 Inactive 1/2 tab x 1 week then increase to a full pill daily buspirone 5 mg tablet RxNorm: 363520 TAKE ONE-HALF TABLET BY MOUTH TWICE A DAY 03/15/2016 05/02/2016 Inactive Synthroid 112 mcg tablet RxNorm: 902250 1 Tablet(s) PO daily 02/25/2016 05/24/2016 Inactive Ativan 1 mg tablet RxNorm: 891709 Tablet(s) TAKE ONE TABLET BY MOUTH THREE TIMES A DAY OR EVERY 6 HOURS NEEDED FOR ANXIETY 02/04/2016 05/08/2016 Inactive Synthroid 125 mcg tablet RxNorm: 621763 TAKE ONE TABLET BY MOUTH TWICE WEEKLY 01/11/2016 02/24/2016 Inactive Synthroid 112 mcg tablet RxNorm: 593493 TAKE ONE TABLET BY MOUTH FIVE DAYS A WEEK 01/11/2016 02/24/2016 Inactive Wellbutrin 75 mg tablet RxNorm: 248850 TAKE ONE TABLET BY MOUTH TWICE A DAY 01/11/2016 05/02/2016 Inactive Ativan 1 mg tablet RxNorm: 083887 TAKE ONE TABLET BY MOUTH THREE TIMES A DAY OR EVERY 6 HOURS NEEDED 12/03/2015 12/27/2015 Inactive Lipitor 10 mg tablet RxNorm: 254737 TAKE ONE TABLET BY MOUTH EVERY DAY 12/03/2015 08/28/2016 Inactive Ativan 1 mg tablet RxNorm: 471390 Tablet(s) TAKE ONE TABLET BY MOUTH THREE TIMES A DAY AND TAKE ONE TABLET BY MOUTH EVERY 6 HOURS NEEDED FOR ANXIETY 12/03/2015 12/02/2015 Inactive (Response to an electronic controlled substance refill request - RxReferenceNumber: [id number]) Wellbutrin 75 mg tablet RxNorm: 495757 1 Tablet(s) PO BID 11/13/2015 01/10/2016 Inactive Ativan 1 mg tablet RxNorm: 291492 Tablet(s) TAKE ONE TABLET BY MOUTH THREE TIMES A DAY AND TAKE ONE TABLET BY MOUTH EVERY 6 HOURS NEEDED FOR ANXIETY 09/23/2015 10/30/2015 Inactive (Response to an electronic controlled substance refill request - RxReferenceNumber: [id number]) buspirone 5 mg tablet RxNorm: 422958 TAKE ONE-HALF TABLET BY MOUTH TWICE A DAY 08/18/2015 03/01/2016 Inactive ceftriaxone 500 mg solution for injection RxNorm: 9592559 Inj 07/23/2015 07/23/2015 Inactive Zithromax Z-Que 250 mg tablet RxNorm: 341966 1 Tablet(s) PO UD 07/23/2015 07/27/2015 Inactive ZPACK buspirone 5 mg tablet RxNorm: 999394 1 Tablet(s) PO daily 07/06/2015 10/03/2015 Inactive buspirone 5 mg tablet RxNorm: 251011 1/2 Tablet(s) PO BID 05/26/2015 07/05/2015 Inactive Lipitor 10 mg tablet RxNorm: 728455 TAKE ONE TABLET BY MOUTH EVERY DAY 04/23/2015 10/19/2015 Inactive Ativan 1 mg tablet RxNorm: 948224 Tablet(s) TAKE ONE TABLET BY MOUTH THREE TIMES A DAY AND TAKE ONE TABLET BY MOUTH EVERY 6 HOURS NEEDED FOR ANXIETY 02/23/2015 04/01/2015 Inactive (Response to an electronic controlled substance refill request - RxReferenceNumber: [id number]) Synthroid 125 mcg tablet RxNorm: 993843 1 Tablet(s) PO UD twice weekly 12/10/2014 06/07/2015 Inactive Synthroid 112 mcg tablet RxNorm: 715958 1 Tablet(s) PO UD TAKE ONE TABLET BY MOUTH 5 days a week 12/10/2014 12/04/2015 Inactive Lexapro 20 mg tablet RxNorm: 721700 1 Tablet(s) PO daily 11/26/2014 11/12/2015 Inactive Lipitor 10 mg tablet RxNorm: 773830 TAKE ONE TABLET BY MOUTH EVERY DAY 10/21/2014 04/18/2015 Inactive amoxicillin 500 mg capsule RxNorm: 010712 1 Capsule(s) PO TID 10/15/2014 10/21/2014 Inactive take probiotic BID x 7 days during abt period amoxicillin 500 mg capsule RxNorm: 686800 1 Capsule(s) PO TID 10/15/2014 10/14/2014 Inactive take probiotic BID x 7 days during abt period Ativan 1 mg tablet RxNorm: 596944 TAKE ONE TABLET BY MOUTH THREE TIMES A DAY AND TAKE ONE TABLET BY MOUTH EVERY 6 HOURS NEEDED FOR ANXIETY 08/21/2014 09/28/2014 Inactive (Response to an electronic controlled substance refill request - [id number]) Ativan 1 mg tablet RxNorm: 321513 1 Tablet(s) PO tid and Q6 PRN as needed 08/18/2014 08/21/2014 Inactive doxycycline hyclate 100 mg tablet RxNorm: 179782 1 Tablet(s) PO BID 04/23/2014 05/25/2015 Inactive prednisone 10 mg tablets in a dose pack RxNorm: 500636 1 Tablet(s) PO 02/14/2014 05/25/2015 Inactive Kenalog 40 mg/mL suspension for injection RxNorm: 6378164 1 Milliliter(s) Inj 02/11/2014 02/11/2014 Inactive Keflex 500 mg capsule RxNorm: 752384 1 Capsule(s) PO TID 01/21/2014 01/27/2014 Inactive Kenalog 40 mg/mL suspension for injection RxNorm: 5898027 Milliliter(s) Inj 01/21/2014 01/21/2014 Inactive Synthroid 112 mcg tablet RxNorm: 757318 1 Tablet(s) PO daily TAKE ONE TABLET BY MOUTH EVERY DAY 12/05/2013 11/29/2014 Inactive Ativan 1 mg tablet RxNorm: 125597 1 Tablet(s) PO Q6 PRN 11/05/2013 02/02/2014 Inactive Lexapro 20 mg tablet RxNorm: 836409 1 Tablet(s) PO daily 11/05/2013 11/04/2013 Inactive Lexapro 20 mg tablet RxNorm: 890848 1 Tablet(s) PO daily 11/05/2013 10/30/2014 Inactive Lipitor 10 mg tablet RxNorm: 173933 1 Tablet(s) PO QPM TAKE ONE TABLET BY MOUTH EVERY DAY 09/30/2013 10/20/2014 Inactive Lexapro 20 mg tablet RxNorm: 615373 1 Tablet(s) PO daily 09/30/2013 11/04/2013 Inactive Synthroid 125 mcg tablet RxNorm: 518315 1 Tablet(s) PO daily 09/10/2013 12/04/2013 Inactive Synthroid 100 mcg tablet RxNorm: 759625 1 Tablet(s) PO daily TAKE ONE TABLET BY MOUTH EVERY DAY 09/06/2013 09/09/2013 Inactive Lipitor 10 mg tablet RxNorm: 482298 Tablet(s) PO TAKE ONE TABLET BY MOUTH EVERY DAY 08/15/2013 09/29/2013 Inactive Synthroid 100 mcg tablet RxNorm: 754215 1 Tablet(s) PO daily TAKE ONE TABLET BY MOUTH EVERY DAY 04/26/2013 09/05/2013 Inactive Ativan 1 mg tablet RxNorm: 500716 1 Tablet(s) PO Q6 PRN 03/13/2013 No Stop Date Active Synthroid 100 mcg tablet RxNorm: 260597 1 Tablet(s) PO daily TAKE ONE TABLET BY MOUTH EVERY DAY 03/13/2013 04/25/2013 Inactive Lexapro 20 mg tablet RxNorm: 794229 1/2 Tablet(s) PO BID 03/13/2013 09/29/2013 Inactive Synthroid 112 mcg tablet RxNorm: 036326 Tablet(s) PO TAKE ONE TABLET BY MOUTH EVERY DAY 01/08/2013 03/12/2013 Inactive Lexapro 20 mg tablet RxNorm: 104950 Tablet(s) PO TAKE 1/2 TABLET EVERY MORNING AND TAKE ONE TABLET BY MOUTH AT BEDTIME 10/18/2012 03/12/2013 Inactive Lipitor 20 mg tablet RxNorm: 350988 1/2 Tablet(s) PO daily 08/20/2012 02/04/2013 Inactive Lipitor 10 mg tablet RxNorm: 870942 1 Tablet(s) PO daily 05/23/2012 08/19/2012 Inactive Synthroid 112 mcg tablet RxNorm: 908899 1 Tablet(s) PO daily 12/16/2011 01/07/2013 Inactive Synthroid 112 mcg Tab RxNorm: 263481 1 Tablet(s) PO daily 12/16/2011 12/15/2011 Inactive Lipitor 10 mg tablet RxNorm: 509838 1 Tablet(s) PO daily 12/15/2011 05/22/2012 Inactive Synthroid 112 mcg Tab RxNorm: 577553 1 Tablet(s) PO every other day 11/09/2011 12/15/2011 Inactive every other day Synthroid 112 mcg Tab RxNorm: 479333 1 Tablet(s) PO every other day 10/21/2011 11/08/2011 Inactive every other day Synthroid 125 mcg Tab RxNorm: 240503 1 Tablet(s) PO every other day 10/21/2011 12/16/2011 Inactive every other day Lexapro 20 mg tablet RxNorm: 082187 1.5 Tablet(s) PO daily 1/2 pill in AM and 1 pill at bedtime 09/22/2011 04/18/2012 Inactive 1/2 q am 1 q hs diazepam 5 mg Tab RxNorm: 913343 1 Tablet(s) PO daily 1 tab bid prn 09/21/2011 05/17/2012 Inactive Lexapro 20 mg Tab RxNorm: 232913 1.5 Tablet(s) PO daily 1/2 pill in AM and 1 pill at bedtime 08/22/2011 09/21/2011 Inactive diazepam 5 mg Tab RxNorm: 971254 1 Tablet(s) PO daily 1 tab bid prn 06/20/2011 09/20/2011 Inactive diazepam 5 mg Tab RxNorm: 613657 1 Tablet(s) PO daily 1 tab bid prn 06/20/2011 06/19/2011 Inactive diazepam 5 mg Tab RxNorm: 428377 1 Tablet(s) PO daily 1 tab bid prn 06/17/2011 06/19/2011 Inactive Lipitor 10 mg Tab RxNorm: 699693 1 Tablet(s) PO daily 05/31/2011 11/26/2011 Inactive diazepam 5 mg Tab RxNorm: 642753 1 Tablet(s) PO BID 1 tab bid prn 04/21/2011 05/20/2011 Inactive Calcium 600 + D(3) Oral RxNorm: Oral No Start Date Active Menest 0.625 mg Tab RxNorm: 090367 1 Tablet(s) PO daily No Start Date 06/16/2011 Inactive Synthroid 125 mcg tablet RxNorm: 077543 Tablet(s) PO No Start Date 09/09/2013 Inactive Ativan 1 mg tablet RxNorm: 591436 1 Tablet(s) PO Q6 PRN No Start Date 08/21/2011 Inactive aspirin 81 mg Tab, Delayed Release RxNorm: 4415458 1 Tablet(s) PO daily No Start Date 09/29/2013 Inactive Lexapro 10 mg Tab RxNorm: 471414 1 Tablet(s) PO daily No Start Date 08/22/2011 Inactive prednisone 10 mg tablets in a dose pack RxNorm: 777933 1 Tablet(s) PO No Start Date 02/13/2014 Inactive Synthroid 112 mcg Tab RxNorm: 083043 Tablet(s) PO tu/thurs/sat/sun No Start Date 10/20/2011 Inactive lorazepam 1 mg Tab RxNorm: 434839 Tablet(s) PO Q6 PRN No Start Date 11/04/2013 Inactive Lipitor 20 mg tablet RxNorm: 729772 1/2 Tablet(s) PO daily No Start Date 08/20/2012 Inactive Vitamin D2 oral RxNorm: oral No Start Date 09/29/2013 Inactive Synthroid 125 mcg Tab RxNorm: 180347 1 Tablet(s) PO No Start Date 10/20/2011 Inactive synthroid 112 mcg mon Medication Administered Medication Codes Instructions Start Date Status Kenalog 40 mg/mL suspension for injection RxNorm: 7699805 1Milliliter 09/05/2016 No longer Active ceftriaxone 500 mg solution for injection RxNorm: 1379714 07/23/2015 No longer Active Kenalog 40 mg/mL suspension for injection RxNorm: 7577361 1Milliliter 02/11/2014 No longer Active Kenalog 40 mg/mL suspension for injection RxNorm: 2213187 Milliliter 01/21/2014 No longer Active Immunizations Vaccine Codes Date Status Pneumococcal (Adult) CVX: 133 11/13/2015 completed Influenza CVX: 141 04/15/2014 completed Pneumococcal (Adult) CVX: 33 04/15/2014 completed PPD Unknown 10/10/2013 completed Influenza CVX: 141 09/30/2013 completed Assessments Condition Codes Effective Dates Pelvic and perineal pain ICD-10: R10.2 ICD-9: LTX1177 02/16/2017 Acute vaginitis ICD-10: N76.0 ICD-9: 623.5 [...] hTSH II 1.07 uIU/mL 11/17/2016 Free T4 Fbv876 FREE T4 1.02 ng/dL 11/17/2016 Lipid Ord30 CHOL 195 mg/dL 10/13/2016 Lipid Ord30 HDL 68.0 mg/dl 10/13/2016 Lipid Ord30 TRIG 69 mg/dL 10/13/2016 Lipid Ord30 LDL 113 mg/dL 10/13/2016 Lipid Ord30 C/HDL 2.9 Ratio 10/13/2016 Comp Metabolic Wtb322 NA 138 mEq/L 10/13/2016 Comp Metabolic Aez222 K 4.4 mEq/L 10/13/2016 Comp Metabolic Hys419 CL 102 mEq/L 10/13/2016 Comp Metabolic Eqy127 CO2 29.0 mEq/L 10/13/2016 Comp Metabolic Sgv419 ANION GAP 11 10/13/2016 Comp Metabolic Zbc129 GLUCOSE 85 mg/dL 10/13/2016 Comp Metabolic Eil969 Creat 1.0 mg/dL 10/13/2016 Comp Metabolic Bfw514 eGFR 59 ml/min/1.73m2 10/13/2016 Comp Metabolic Kbh489 BUN 21 mg/dL 10/13/2016 Comp Metabolic Cez608 B/C Ratio 21.2 Ratio 10/13/2016 Comp Metabolic Szg283 CALCIUM 9.7 mg/dL 10/13/2016 Comp Metabolic Mra836 ALK PHOS 70 U/L 10/13/2016 Comp Metabolic Hmh225 AST(SGOT) 17 U/L 10/13/2016 Comp Metabolic Fjo052 ALT(SGPT) 14 U/L 10/13/2016 Comp Metabolic Jlz333 BILI T 0.9 mg/dL 10/13/2016 Comp Metabolic Frv208 ALBUMIN 4.4 g/dL 10/13/2016 Comp Metabolic Eeh405 TPRO 7.1 g/dL 10/13/2016 Comp Metabolic Fio457 GLOB 2.7 g/dL 10/13/2016 Comp Metabolic Rcf114 A/G Ratio 1.6 Ratio 10/13/2016 Comp Metabolic Yip963 Osmo 278 mOsmo 10/13/2016 Cbc With Differential Ord2 WBC 6.00 K/ul 10/13/2016 Cbc With Differential Ord2 RBC 4.71 M/ul 10/13/2016 Cbc With Differential Ord2 HGB 14.0 g/dl 10/13/2016 Cbc With Differential Ord2 Neut% 66.4 % 10/13/2016 Cbc With Differential Ord2 HCT 42.2 % 10/13/2016 Cbc With Differential Ord2 MCV 89.6 fl 10/13/2016 Cbc With Differential Ord2 Lymph% 23.8 % 10/13/2016 Cbc With Differential Ord2 MCH 29.7 pg 10/13/2016 Cbc With Differential Ord2 [place]% 7.7 % 10/13/2016 Cbc With Differential Ord2 [...] 1.43 K/ul 10/13/2016 Cbc With Differential Ord2 [place] ABS# 0.5 K/ul 10/13/2016 Cbc With Differential Ord2 Eos ABS# 0.1 K/ul 10/13/2016 Cbc With Differential Ord2 Baso ABS# 0.0 K/ul 10/13/2016 Free T4 Lbi109 FREE T4 1.31 ng/dL 08/17/2016 Tsh Ord6 hTSH II 0.64 uIU/mL 08/17/2016 Free T4 Idz523 FREE T4 1.49 ng/dL 05/10/2016 Comp Metabolic Tcb950 NA 139 mEq/L 05/10/2016 Comp Metabolic Fgy650 K 4.5 mEq/L 05/10/2016 Comp Metabolic Axe092 CL 104 mEq/L 05/10/2016 Comp Metabolic Ovo076 CO2 24.0 mEq/L 05/10/2016 Comp Metabolic Zpf803 ANION GAP 16 05/10/2016 Comp Metabolic Qgg456 GLUCOSE 87 mg/dL 05/10/2016 Comp Metabolic Uiv015 Creat 0.9 mg/dL 05/10/2016 Comp Metabolic Rwa931 eGFR 71 ml/min/1.73m2 05/10/2016 Comp Metabolic Ulf464 BUN 12 mg/dL 05/10/2016 Comp Metabolic Jlc052 B/C Ratio 14.1 Ratio 05/10/2016 Comp Metabolic Spg982 CALCIUM 9.6 mg/dL 05/10/2016 Comp Metabolic Cdr968 ALK PHOS 89 U/L 05/10/2016 Comp Metabolic Qmf257 AST(SGOT) 17 U/L 05/10/2016 Comp Metabolic Min175 ALT(SGPT) 17 U/L 05/10/2016 Comp Metabolic Oiw313 BILI T 0.9 mg/dL 05/10/2016 Comp Metabolic Muw030 ALBUMIN 4.2 g/dL 05/10/2016 Comp Metabolic Mvm870 TPRO 6.7 g/dL 05/10/2016 Comp Metabolic Bey641 GLOB 2.5 g/dL 05/10/2016 Comp Metabolic Znb127 A/G Ratio 1.7 Ratio 05/10/2016 Comp Metabolic Elr101 Osmo 277 mOsmo 05/10/2016 Cbc With Differential [...] 23.8 % 05/10/2016 Cbc With Differential Ord2 [place]% 8.3 % 05/10/2016 Cbc With Differential Ord2 MCH 29.1 pg 05/10/2016 Cbc With Differential Ord2 MCHC 34.0 pg 05/10/2016 Cbc With Differential Ord2 Eos% 2.9 % 05/10/2016 Cbc With Differential Ord2 PLT 457 K/ul 05/10/2016 Cbc With Differential Ord2 Baso% 0.6 % 05/10/2016 Cbc With Differential Ord2 RDW 13.5 % 05/10/2016 Cbc With Differential Ord2 Neut ABS# 4.25 K/ul 05/10/2016 Cbc With Differential Ord2 Lymph ABS# 1.57 K/ul 05/10/2016 Cbc With Differential Ord2 [place] ABS# 0.6 K/ul 05/10/2016 Cbc With Differential Ord2 Eos ABS# 0.2 K/ul 05/10/2016 Cbc With Differential Ord2 Baso ABS# 0.0 K/ul 05/10/2016 Tsh Ord6 hTSH II 0.03 uIU/mL 05/10/2016 Free T4 Ixs168 FREE T4 1.67 ng/dL 02/18/2016 Tsh Ord6 hTSH II 0.06 uIU/mL 02/18/2016 Comp Metabolic Dlu417 NA 138 mEq/L 02/18/2016 Comp Metabolic Jpm358 K 4.5 mEq/L 02/18/2016 Comp Metabolic Qar521 CL 104 mEq/L 02/18/2016 Comp Metabolic Kwp027 CO2 26.0 mEq/L 02/18/2016 Comp Metabolic Qme594 ANION GAP 13 02/18/2016 Comp Metabolic Fae825 GLUCOSE 88 mg/dL 02/18/2016 Comp Metabolic Fni633 Creat 0.9 mg/dL 02/18/2016 Comp Metabolic Wsm078 eGFR 69 ml/min/1.73m2 02/18/2016 Comp Metabolic Hvs493 BUN 14 mg/dL 02/18/2016 Comp Metabolic Zew515 B/C Ratio 16.1 Ratio 02/18/2016 Comp Metabolic Kdm796 CALCIUM 9.4 mg/dL 02/18/2016 Comp Metabolic Ooi914 ALK PHOS 95 U/L 02/18/2016 Comp Metabolic Nmp341 AST(SGOT) 19 U/L 02/18/2016 Comp Metabolic Chj958 ALT(SGPT) 18 U/L 02/18/2016 Comp Metabolic Btf630 BILI T 0.7 mg/dL 02/18/2016 Comp Metabolic Xwm318 ALBUMIN 4.4 g/dL 02/18/2016 Comp Metabolic Jvx959 TPRO 6.9 g/dL 02/18/2016 Comp Metabolic Rjb688 GLOB 2.5 g/dL 02/18/2016 Comp Metabolic Mhh931 A/G Ratio 1.7 Ratio 02/18/2016 Comp Metabolic Uzh007 Osmo 276 mOsmo 02/18/2016 Lipid Ord30 CHOL [...] 70.7 % 02/18/2016 Cbc With Differential Ord2 Lymph% 18.8 % 02/18/2016 Cbc With Differential Ord2 MCV 85.5 fl 02/18/2016 Cbc With Differential Ord2 MCH 28.9 pg 02/18/2016 Cbc With Differential Ord2 [place]% 10.5 % 02/18/2016 Cbc With Differential Ord2 Eos% 0.0 % 02/18/2016 Cbc With Differential Ord2 MCHC 33.8 pg 02/18/2016 Cbc With Differential Ord2 PLT 474 K/ul 02/18/2016 Cbc With Differential Ord2 Baso% 0.0 % 02/18/2016 Cbc With Differential Ord2 RDW 12.9 % 02/18/2016 Cbc With Differential Ord2 Neut ABS# 4.06 K/ul 02/18/2016 Cbc With Differential Ord2 Lymph ABS# 1.08 K/ul 02/18/2016 Cbc With Differential Ord2 [place] ABS# 0.6 K/ul 02/18/2016 Cbc With Differential Ord2 Eos ABS# 0.0 K/ul 02/18/2016 Cbc With Differential Ord2 Baso ABS# 0.0 K/ul 02/18/2016 Comp Metabolic Zeq851 NA 136 mEq/L 06/08/2015 Comp Metabolic Kmf301 K 3.9 mEq/L 06/08/2015 Comp Metabolic Gyh658 CL 103 mEq/L 06/08/2015 Comp Metabolic Nux296 CO2 25.0 mEq/L 06/08/2015 Comp Metabolic Qwh273 ANION GAP 12 06/08/2015 Comp Metabolic Gzm523 GLUCOSE 91 mg/dL 06/08/2015 Comp Metabolic Eek004 Creat 0.9 mg/dL 06/08/2015 Comp Metabolic Qsv178 eGFR 68 ml/min/1.73m2 06/08/2015 Comp Metabolic [address]831 BUN 10 mg/dL 06/08/2015 Comp Metabolic Ydj392 B/C Ratio 11.4 Ratio 06/08/2015 Comp Metabolic Aqv258 CALCIUM 9.4 mg/dL 06/08/2015 Comp Metabolic Irb441 ALK PHOS 88 U/L 06/08/2015 Comp Metabolic Udi426 AST(SGOT) 20 U/L 06/08/2015 Comp Metabolic Zfk769 ALT(SGPT) 18 U/L 06/08/2015 Comp Metabolic Yis200 BILI T 0.8 mg/dL 06/08/2015 Comp Metabolic Vid592 ALBUMIN 4.4 g/dL 06/08/2015 Comp Metabolic Xml497 TPRO 7.0 g/dL 06/08/2015 Comp Metabolic Jeo377 GLOB 2.6 g/dL 06/08/2015 Comp Metabolic Akk628 A/G Ratio 1.7 Ratio 06/08/2015 Comp Metabolic Cbu248 Osmo 271 mOsmo 06/08/2015 Tsh Ord6 hTSH [...] Ord2 RDW 14.4 % 06/08/2015 LYME EIA 5552345 LYME EIA 0.24 04/25/2014 TULAREM AB [id number] TULAREM AB <1:20 04/24/2014 RMSF IFA 9783704 IGG RMSF <1:16 04/24/2014 RMSF IFA 0993317 IGM RMSF <1:10 04/24/2014 E CHAFF AB 2764143 IGG E CHFF <1:16 04/24/2014 E CHAFF AB [id number] IGM E CHFF <1:10 04/24/2014 ICT OCCULT [id number] ICT OCCULT NEG 10/11/2013 Review of Systems [...] Procedure Codes Date PPPS, SUBSEQ VISIT CPT-4: E3414Xpjojqg 11/17/2016 TRIAMCINOLONE ACET INJ NOS CPT-4: D4341Yhjiaop 09/05/2016 PPPS, SUBSEQ VISIT CPT-4: J8399Jaeclkl 11/13/2015 PNEUMOCOCCAL VACC 13 STEPHANIE IM Formatting Model/CDA Sections, Assigned to/Lila Colon SNOMED CT: 17975936 CPT-4: 71231Xmnodvd 11/13/2015 ADMIN PNEUMOCOCCAL VACCINE SNOMED CT: 20632607 CPT-4: R2059Afupvnb 11/13/2015 ROCEPHIN, PER 250 MG CPT-4: F7387Yyxlume 07/23/2015 URINALYSIS NONAUTO W/O SCOPE CPT-4: 11027Jffunwl 10/10/2014 ROUTINE VENIPUNCTURE CPT-4: 93214Rxknelv 04/23/2014 Pneumococcal Polysaccharide Vaccine, 23-Valent, Ad CPT-4: 45243Dbsxzyj 04/15/2014 ADMIN INFLUENZA VIRUS VAC CPT-4: Q7082Oppegvg 04/15/2014 FLU VAC NO PRSV 4 STEPHANIE 3 YRS+ CPT-4: 48333Zsmajgn 04/15/2014 ADMIN PNEUMOCOCCAL VACCINE SNOMED CT: 17121834 CPT-4: T2918Llugkib 04/15/2014 THER/PROPH/DIAG INJ SC/IM CPT-4: 26478Maaduhu 02/11/2014 TRIAMCINOLONE ACET INJ NOS CPT-4: Y1078Mbabchx 02/11/2014 TRIAMCINOLONE ACET INJ NOS CPT-4: R2197Mqezdou 01/21/2014 INITIAL PREVENTIVE EXAM CPT-4: B5338Mcrvcqw 09/30/2013 PRESCRIP TRANSMIT VIA ERX SY CPT-4: V5092Olrntgg 03/13/2013 Vital Signs Date Vital 02/16/2017 Blood Pressure 1: 128/80 Code: 8480-6 BMI: 29.9 Code: 17873-6 Heart Rate 1: 77 bpm Height: 5'5" SpO2: 96% Weight: 179 lbs 8 oz 02/06/2017 Blood Pressure 1: 140/80 Code: 8480-6 BMI: 29.8 Code: 32447-3 Heart Rate 1: 72 bpm Height: 5'5" SpO2: 97% Weight: 179 lbs 11/17/2016 Blood Pressure 1: 130/72 Code: 8480-6 BMI: 29.6 Code: 42920-5 Heart Rate 1: 62 bpm Height: 5'5" SpO2: 98% Waist Measure (cm): 91 cm Weight: 178 lbs 10/12/2016 Blood Pressure 1: 128/78 Code: 8480-6 BMI: 28.5 Code: 30351-1 Heart Rate 1: 62 bpm Height: 5'5" SpO2: 97% Weight: 171 lbs 09/05/2016 Blood Pressure 1: 122/70 Code: 8480-6 BMI: 28.0 Code: 41716-1 Heart Rate 1: 65 bpm Height: 5'5" SpO2: 94% Weight: 168 lbs 06/21/2016 Blood Pressure 1: 120/82 Code: 8480-6 BMI: 28.3 Code: 14394-0 Heart Rate 1: 65 bpm Height: 5'5" SpO2: 97% Weight: 170 lbs 05/24/2016 Blood Pressure 1: 136/80 Code: 8480-6 BMI: 28.1 Code: 72059-8 Heart Rate 1: 71 bpm Height: 5'5" SpO2: 96% Weight: 169 lbs 05/10/2016 Blood Pressure 1: 120/82 Code: 8480-6 BMI: 27.6 Code: 63740-9 Heart Rate 1: 86 bpm Height: 5'5" SpO2: 95% Weight: 166 lbs 05/03/2016 Blood Pressure 1: 124/78 Code: 8480-6 BMI: 28.1 Code: 95850-9 Heart Rate 1: 88 bpm Height: 5'5" SpO2: 97% Weight: 169 lbs 11/13/2015 Blood Pressure 1: 130/60 Code: 8480-6 BMI: 30.0 Code: 15036-4 Heart Rate 1: 7 bpm Height: 5'5" Waist Measure (cm): 97 cm Weight: 180 lbs 07/23/2015 Blood Pressure 1: 124/70 Code: 8480-6 BMI: 29.6 Code: 71143-7 Heart Rate 1: 74 bpm Height: 5'5" SpO2: 96% Temperature: 36.7 (C) / 98.1 (F) Weight: 178 lbs 07/06/2015 Blood Pressure 1: 138/78 Code: 8480-6 BMI: 29.6 Code: 27129-5 Heart Rate 1: 84 bpm Height: 5'5" SpO2: 96% Weight: 178 lbs 05/26/2015 Blood Pressure 1: 122/80 Code: 8480-6 BMI: 29.6 Code: 48536-1 Heart Rate 1: 84 bpm Height: 5'5" Weight: 178 lbs 02/16/2015 Blood Pressure 1: 124/82 Code: 8480-6 BMI: 29.0 Code: 96752-9 Heart Rate 1: 68 bpm Height: 5'5" Weight: 174 lbs 12/10/2014 Blood Pressure 1: 112/64 Code: 8480-6 BMI: 28.6 Code: 45391-2 Heart Rate 1: 80 bpm Height: 5'5" Weight: 172 lbs 10/16/2014 Blood Pressure 1: 128/84 Code: 8480-6 Heart Rate 1: 64 bpm Weight: 172 lbs 10/09/2014 Blood Pressure 1: 136/90 Code: 8480-6 BMI: 28.6 Code: 27108-2 Heart Rate 1: 76 bpm Height: 5'5" Weight: 172 lbs 08/26/2014 Blood Pressure 1: 118/72 Code: 8480-6 BMI: 29.0 Code: 32908-1 Heart Rate 1: 76 bpm Height: 5'5" Weight: 174 lbs 05/16/2014 Blood Pressure 1: 110/72 Code: 8480-6 BMI: 29.0 Code: 40675-0 Height: 5'5" Weight: 174 lbs 04/23/2014 Blood Pressure 1: 124/70 Code: 8480-6 BMI: 29.0 Code: 92688-4 Heart Rate 1: 72 bpm Height: 5'5" Weight: 174 lbs 04/15/2014 Temperature: 36.5 (C) / 97.7 (F) 01/21/2014 Blood Pressure 1: 98/62 Code: 8480-6 BMI: 29.0 Code: 18082- 5 Heart Rate 1: 84 bpm Height: 5'5" Temperature: 37.1 (C) / 98.7 (F) Weight: 174 lbs 12/05/2013 Blood Pressure 1: 138/88 Code: 8480-6 BMI: 29.0 Code: 65300-9 Heart Rate 1: 60 bpm Height: 5'5" Weight: 174 lbs 11/05/2013 Blood Pressure 1: 118/80 Code: 8480-6 BMI: 28.8 Code: 63692-6 Heart Rate 1: 76 bpm Height: 5'5" Weight: 173 lbs 10/15/2013 Blood Pressure 1: 120/78 Code: 8480-6 BMI: 29.1 Code: 10382-9 Heart Rate 1: 88 bpm Height: 5'5" Weight: 175 lbs 09/30/2013 Blood Pressure 1: 112/84 Code: 8480-6 BMI: 29.1 Code: 36864-0 Heart Rate 1: 68 bpm Height: 5'5" Weight: 175 lbs 03/13/2013 Blood Pressure 1: 112/84 Code: 8480-6 BMI: 28.6 Code: 95395-5 Heart Rate 1: 64 bpm Height: 5'5" Weight: 173 lbs 10/04/2012 Blood Pressure 1: 120/72 Code: 8480-6 BMI: 28.0 Code: 62473-1 Heart Rate 1: 64 bpm Height: 5'5" Weight: 169 lbs 08/22/2011 Blood Pressure 1: 134/84 Code: 8480-6 BMI: 27.5 Code: 34050-7 Heart Rate 1: 68 bpm Height: 5'5" Respiratory Rate: 16 bpm Weight: 166 lbs 8 oz 06/17/2011 Blood Pressure 1: 120/76 Code: 8480-6 BMI: 27.0 Code: 60227-1 Heart Rate 1: 58 bpm Height: 5'5" [...] data Encounters Encounter Performer Location Codes Date ([id number]) 43178 EST. PATIENT, LEVEL IV Diagnosis: Pelvic and perineal pain[ICD10: R10.2] Diagnosis: Acute vaginitis[ICD10: N76.0] Suma Alvarado MD, [facility] CPT-4: 82867 02/16/2017 ([id number]) 02073 EST. PATIENT, LEVEL III Diagnosis: Postprocedural hypothyroidism[ICD10: E89.0] Diagnosis: Major depressive disorder, recurrent, moderate[ICD10: F33.1] Elina Alvarado MD, [facility] CPT-4: 01740 02/06/2017 ([id number]) 52238 EST. PATIENT, LEVEL III Diagnosis: Generalized anxiety disorder[ICD10: F41.1] Elina Alvarado MD, [facility] CPT-4: 49396 10/12/2016 ([id number]) 89866 EST. PATIENT, LEVEL III Diagnosis: Cough[ICD10: R05] Diagnosis: Acute upper respiratory infection, unspecified[ICD10: J06.9] Suma Alvarado MD, [facility] CPT-4: 05816 09/05/2016 ([id number]) 99613 EST. PATIENT, LEVEL III Diagnosis: Generalized anxiety disorder[ICD10: F41.1] Diagnosis: Major depressive disorder, recurrent, moderate[ICD10: F33.1] Diagnosis: Postprocedural hypothyroidism[ICD10: E89.0] Elina Alvarado MD, [facility] CPT-4: 94072 06/21/2016 ([id number]) 17298 EST. PATIENT, LEVEL III Diagnosis: Major depressive disorder, recurrent, moderate[ICD10: F33.1] Elina Alvarado MD, [facility] CPT-4: 12099 05/24/2016 ([id number]) 53784 EST. PATIENT, LEVEL III Diagnosis: Major depressive disorder, recurrent, moderate[ICD10: F33.1] Elina Alvarado MD [facility] CPT-4: 03427 05/10/2016 ([id number]) 96070 EST. PATIENT, LEVEL III Diagnosis: Generalized anxiety disorder[ICD10: F41.1] Diagnosis: Major depressive disorder, recurrent, moderate[ICD10: F33.1] Suma Alvarado MD [facility] CPT-4: 23933 05/03/2016 ([id number]) 63439 EST. PATIENT, LEVEL III Diagnosis: Cough[ICD10: R05] Diagnosis: Acute upper respiratory infection, unspecified[ICD10: J06.9] Suma Alvarado MD, [facility] CPT-4: 50851 07/23/2015 ([id number]) 50767 EST. PATIENT, LEVEL III Diagnosis: Hypothyroidism, unspecified[ICD10: E03.9] Diagnosis: Generalized anxiety disorder[ICD10: F41.1] Diagnosis: Other depressive episodes[ICD10: F32.8] Elina Alvarado MD, [facility] CPT-4: 22284 07/06/2015 ([id number]) 18983 EST. PATIENT, LEVEL IV Diagnosis: Generalized anxiety disorder[ICD10: F41.1] Diagnosis: Major depressive disorder, recurrent, unspecified[ICD10: F33.9] Elina Alvarado MD, [facility] CPT-4: 64215 05/26/2015 ([id number]) 94528 EST. PATIENT, LEVEL II Diagnosis: 2Nd degree burn of multiple fingers of right hand not including thumb[ICD9: 944.23] Suma Alvarado MD, [facility] CPT-4: 56653 02/16/2015 ([id number]) 28978 EST. PATIENT, LEVEL IV Diagnosis: Hammertoe[ICD9: 735.4] Diagnosis: Foot pain[ICD9: 729.5] Diagnosis: HYPOTHYROIDISM[ICD9: 244.9] Elina Alvarado MD [facility] CPT-4: 50566 12/10/2014 ([id number]) 73399 EST. PATIENT, LEVEL III Diagnosis: Urinary incontinence[ICD9: 788.30] Diagnosis: Pelvic pain in female[ICD9: 625.9] Elina Alvarado MD [facility] CPT- 4: 63275 10/16/2014 ([id number]) 53283 EST. PATIENT, LEVEL III Diagnosis: Urinary incontinence[ICD9: 788.30] Diagnosis: Pelvic pain in female[ICD9: 625.9] Suma Alvarado MD [facility] CPT- 4: 37648 10/09/2014 ([id number]) 01485 EST. PATIENT, LEVEL III Diagnosis: HYPOTHYROIDISM[ICD9: 244.9] Elina Alvarado MD [facility] CPT-4: 87022 08/26/2014 ([id number]) 29941 EST. PATIENT, LEVEL III Diagnosis: Neck pain[ICD9: 723.1] Diagnosis: Muscle tension headache[ICD9: 307.81] Suma Alvarado MD [facility] CPT-4: 43666 05/16/2014 ([id number]) 22325 EST. PATIENT, LEVEL IV Diagnosis: Arthropod bite[ICD9: 919.4] Diagnosis: Poison diana dermatitis[ICD9: 692.6] Diagnosis: Arthralgia[ICD9: 719.40] Diagnosis: Myalgia[ICD9: 729.1] Elina Alvarado MD, [facility] CPT-4: 43741 04/23/2014 ([id number]) 49240 EST. PATIENT, LEVEL III Diagnosis: ACUTE URI[ICD9: 465.9] Diagnosis: COUGH[ICD9: 786.2] Suma Alvarado MD, [facility] CPT-4: 15572 01/21/2014 ([id number]) 38235 EST. PATIENT, LEVEL III Diagnosis: HYPOTHYROIDISM[ICD9: 244.9] Diagnosis: GENERALIZED ANXIETY DISEASE[ICD9: 300.02] Elina Alvarado MD, [facility] CPT-4: 16540 12/05/2013 ([id number]) 56092 EST. PATIENT, LEVEL III Diagnosis: GENERALIZED ANXIETY DISEASE[ICD9: 300.02] Diagnosis: DEPRESSIVE DISORDER NEC[ICD9: 311] Elina Alvarado MD [facility] CPT- 4: 52484 11/05/2013 ([id number]) 40486 EST. PATIENT, LEVEL III Diagnosis: HYPOTHYROIDISM[ICD9: 244.9] RUBIA Alex MD CPT-4: 82067 10/15/2013 ([id number]) Miscellaneous no charge Diagnosis: Colon cancer screening[ICD9: V76.51] Elina Alvarado MD [facility] CPT- 4: 39692 10/10/2013 ([id number]) 96463 EST. PATIENT, LEVEL IV Diagnosis: HYPOTHYROIDISM[ICD9: 244.9] Diagnosis: DEPRESSIVE DISORDER NEC[ICD9: 311] Diagnosis: GENERALIZED ANXIETY DISEASE[ICD9: 300.02] Diagnosis: HYPERLIPIDEMIA[ICD9: 272.4] Elina Alvarado MD [facility] CPT-4: 78140 03/13/2013 ([id number]) 39246 EST. PATIENT, LEVEL IV Diagnosis: HYPERLIPIDEMIA[ICD9: 272.4] Diagnosis: HYPOTHYROIDISM[ICD9: 244.9] Diagnosis: GENERALIZED ANXIETY DISEASE[ICD9: 300.02] Diagnosis: DEPRESSIVE DISORDER NEC[ICD9: 311] Elina Alvarado MD [facility] CPT- 4: 70126 10/04/2012 ([id number]) 99981 EST. PATIENT, LEVEL III Diagnosis: VICTOR HUGO (generalized anxiety disorder)[ICD9: 300.02] Diagnosis: Chronic depression[ICD9: 311] Elina Alvarado MD [facility] CPT-4: 43541 08/22/2011 29192 EST. PATIENT, LEVEL IV Diagnosis: CHEST PAIN NEC[ICD9: 786.59] Diagnosis: HYPERLIPIDEMIA[ICD9: 272.4] Diagnosis: POSTSURGICAL HYPOTHYROIDISM[ICD9: 244.0] Elina Alvarado MD, [facility] CPT-4: 17427 06/17/2011 Plan of Care Planned Activity Notes Codes Status Date Visit Plan: Pelvic pain-UA negative-pap done today in the office-will start patient on flagyl for bacterial vaginosis-instructed patient to call if symptoms do not resolve or if any worse. Patient verbalized understanding of plan. 02/16/2017 Patient Education: Patient Medication Summary Completed [...] medications. 02/06/2017 Appointment: Elina Alvarado WPtel: [phone] [facility] (15 min) Moderate 02/06/2017 Patient Education: Patient [...] surrogate. 11/17/2016 [facility]ment[phone] [facility] - Annual Wellness Visit 11/17/2016 Patient [...] current medications. 10/12/2016 Appointment: El[facility] Alvarado WPtel: [facility] [place] (15 min) Moderate 10/12/2016 Patient Education: Patient Medication Summary Completed 10/12/2016 Appointment: Suma Choi WPtel: [phone] [phone] [place] (10 min) Simple 09/05/2016 Patient [...] lexapro 06/21/2016 Appointment: Elina Alvarado WPtel: [phone] [facility] (15 min) Moderate 06/21/2016 Patient Education: Patient Medication Summary Completed 06/21/2016 Visit Plan: Depression - improved with lexapro - continue with current treatment and counseling. 05/24/2016 Appointment: Elina Alvarado WPtel: [facility] [place] (15 min) Moderate 05/24/2016 Patient Education: Patient Medication Summary Completed 05/24/2016 Visit Plan: Depression - improved on the Lexapro - stop ativan - start on xanax 05/10/2016 Appointment: Elina Alvarado WPtel: [facility] [place] (15 min) Moderate 05/10/2016 Patient Education: [...] 05/03/2016 Appointment: Suma Choi WPtel[facility] [place] (15 min) Moderate 02/26/2016 Visit Plan: Medicare [...] risk and to maintain independece in the home.Brkrgwbjdf-ybawmjouktqg-qjepwm to wellbutrin Pneumonia 13 administered today in [...] risk and to maintain independece in the home.Nbsuttcdcg-krimlmhkxqha-qtzrvz to wellbutrin Pneumonia 13 administered today in the office 11/13/2015 Appointment: [facility] - Annual Wellness Visit 11/13/2015 Patient Education: Patient Medication Summary Completed 11/13/2015 Patient Education: Obesity Completed 11/13/2015 Care Plan: [employer] : 43126-3 Ordered 11/13/2015 Appointment: Lab Draw 08/10/2015 Visit [...] current medications. 07/06/2015 Appointment: Elina Alvarado WPtel: [address] [place], [place] [phone] (30 min) Complex 07/06/2015 Patient Education: Patient [...] Patient Medication Summary Completed 02/16/2015 Visit Plan: Hammertoe - Foot pain - pt to have surgery on 12/15/14, Dr. Reinoso to take pt to surgery - Pt is medically cleared for surgical intervention on her foot.Pt has chronic hypothyroidism, depression and anxiety - needs to continue her medications upon discharge. 12/10/2014 Appointment: Elina Alvarado WPtel: [address] [place], [place] [phone] Surgical Clearance 12/10/2014 Patient Education: Patient Medication Summary Completed 12/10/2014 Visit Plan: Urinary incontinence and Pelvic discomfort - recommended pt to have evaluation by Dr. Brandt - pt agreeable to referral. Pt is to call if abdominal pain does not improve. 10/16/2014 Appointment: Elina Alvarado WPtel: [address] [place], [place] [phone] Follow up 10/16/2014 Patient Education: Patient Medication Summary Completed 10/16/2014 Care Plan: Referral Order SNOMED-CT : [id number] Ordered 10/16/2014 Patient Education: Patient Medication Summary Completed 10/10/2014 Visit Plan: Pelvic pain-history of mesh implant-recommend CT abd/pelvis to evaluate for any abnormality-refer to Dr Woods if pain does not improveUrinary incontinence-check UA with C&S if indicated 10/09/2014 Patient Education: Patient Medication Summary Completed 10/09/2014 Care Plan: CT ABD & PELV 1/> REGNS LOINC : 54702-6 Ordered 10/09/2014 Visit Plan: Hypothyroidism - pt [...] 08/26/2014 Appointment: Elina Alvarado WPtel: [facility] Follow up 08/26/2014 Patient Education: Patient Medication [...] 04/23/2014 Appointment: Elina Alvarado WPtel: [facility] Sick 04/23/2014 Patient Education: Patient Medication Summary Completed 04/23/2014 Care Plan: Referral Order SNOMED-CT : [id number] Ordered 04/23/2014 Appointment: Nurse Visit 04/15/2014 Patient Education: Patient Medication Summary Completed 04/15/2014 Appointment: [phone] [place] Injection 02/11/2014 Patient Education: Patient [...] current treatment. 12/05/2013 Appointment: [phone] Follow up 12/05/2013 Patient Education: Patient Medication [...] medications. 11/05/2013 Appointment: [phone] Follow up 11/05/2013 Patient Education: Patient Medication [...] control. 10/15/2013 Appointment: Elina Alvarado WPtel: [phone] [facility] [facility] 10/15/2013 Patient Education: Patient Medication [...] care surrogate. 09/30/2013 Appointment: Elina Alvarado WPtel: [facility] [facility] - Initial Preventive Physical Exam 09/30/2013 Patient Education: Patient Medication Summary Completed 09/30/2013 Appointment: Elina Alvarado WPtel: [facility] [facility] - Initial Preventive Physical Exam 09/11/2013 [...] prn use. 03/13/2013 Appointment: Elina Alvarado WPtel: [phone] [facility] Follow up 03/13/2013 Patient Education: Patient Medication [...] current medications. 10/04/2012 Appointment: [facility]el[phone] Follow up 10/04/2012 Patient Education: Patient [...] anxiety attacks. 08/22/2011 Appointment: Elina Alvarado WPtel: [phone] [facility] Other 08/22/2011 Patient Education: Patient Medication Summary Completed 08/22/2011 Visit Plan: check labsappointment with dr jennifer dickerson, echocardiogramthyroid ultrasoundif the chest pain becomes acute, worsens, or does not go away, go to the emergency roomHYPERLIPIDEMIA - CONTINUE WITH CURRENT TREATMENT.DISCUSSED DIET CHANGES, NEED LOW FAT DIET.HYPOTHYROIDISM - CONTINUE WITH CURRENT MEDICATIONS, CHECH THYROID ULTRASOUND 06/17/2011 Appointment: Elina Alvarado WPtel: [phone] [facility] Other 06/17/2011 Patient Education: Patient Medication Summary [...] and to maintain independece in the home. Ajbincqicn-tegkdyfabqxq-pamxgl to wellbutrin Pneumonia 13 administered today in [...] and to maintain independece in the home. Ipnfbhedtc-jsncnzglbdyi-dpfqak to wellbutrin Pneumonia 13 administered today in [...]
--- OUTSIDE RECORDS SUMMARY | 2018-12-27 09:05 | XMS REPORT | CCD ---
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 Name Role Phone PP Unavailable CCM Unavailable Summary Purpose Interface Exchange Insurance Providers Payer name Policy type / Coverage type Covered alliance party ID Effective Begin Date Effective End Date WPS Medicare Part B [id number] 2014 Unknown [facility] [id number] 2014 Unknown Family history Sister Diagnosis Age [...] Description Effective Dates Tobacco history SNOMED CT: 2725628 Former smoker quit 2 years ago, social smoker, 1 pack per month 200709/30/2013 Employment Unknown 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 Unknown Has never used illegal drugs 06/17/2011 Allergies, Adverse Reactions, Alerts Allergies, Adverse Reactions, Alerts data not found Past Medical History Illness Codes Condition Status Onset Date Resolved Date Major depressive disorder, recurrent, moderate ICD-9: 296.32 [...] Problems Condition Codes Effective Dates Condition Status Major depressive disorder, recurrent, moderate ICD-9: 296.32 [...] Fill Instructions Synthroid 112 mcg tablet RxNorm: 584082 TAKE 1 TABLET BY MOUTH DAILY EXCEPT FOR TAKE 1/2 TABLET ON MONDAY, MONDAY, AND Monday12/23/2016 04/13/2017 Active Xanax 0.5 mg tablet RxNorm: 418250 1 Tablet(s) PO QID as needed anxiety 12/23/2016 03/22/2017 Active Lexapro 20 mg tablet RxNorm: 742326 TAKE ONE TABLET BY MOUTH DAILY 11/29/2016 05/27/2017 Active Zithromax Z-Que 250 mg tablet RxNorm: 806498 1 Tablet(s) PO UD 09/05/2016 09/09/2016 Inactive zpack Kenalog 40 mg/mL suspension for injection RxNorm: 5190124 1 Milliliter(s) Inj 09/05/2016 09/05/2016 Inactive Lipitor 10 mg tablet RxNorm: 920929 TAKE ONE TABLET BY MOUTH EVERY DAY 08/30/2016 02/25/2017 Active Ativan 1 mg tablet RxNorm: 045205 1 Tablet(s) PO Q6 PRN as needed TAKE ONE TABLET BY MOUTH THREE TIMES A DAY OR EVERY 6 HOURS NEEDED FOR ANXIETY 08/30/2016 12/22/2016 Inactive Synthroid 112 mcg tablet RxNorm: 235620 1 Tablet(s) PO daily except one-half tab on /Sat 08/23/2016 12/12/2016 Inactive will refill when needed Lexapro 20 mg tablet RxNorm: 100371 TAKE ONE TABLET BY MOUTH DAILY 08/02/2016 11/28/2016 Inactive Synthroid 112 mcg tablet RxNorm: 983836 1 Tablet(s) PO daily except 1/2 tab mon and sat 05/25/2016 08/22/2016 Inactive will refill when needed Xanax 0.5 mg tablet RxNorm: 242179 1 Tablet(s) PO QID as needed anxiety 05/10/2016 08/29/2016 Inactive Lexapro 20 mg tablet RxNorm: 451526 1 Tablet(s) PO daily 05/03/2016 07/31/2016 Inactive 1/2 tab x 1 week then increase to a full pill daily buspirone 5 mg tablet RxNorm: 179478 TAKE ONE-HALF TABLET BY MOUTH TWICE A DAY 03/15/2016 05/02/2016 Inactive Synthroid 112 mcg tablet RxNorm: 163323 1 Tablet(s) PO daily 02/25/2016 05/24/2016 Inactive Ativan 1 mg tablet RxNorm: 316640 Tablet(s) TAKE ONE TABLET BY MOUTH THREE TIMES A DAY OR EVERY 6 HOURS NEEDED FOR ANXIETY 02/04/2016 05/08/2016 Inactive Synthroid 125 mcg tablet RxNorm: 618147 TAKE ONE TABLET BY MOUTH TWICE WEEKLY 01/11/2016 02/24/2016 Inactive Synthroid 112 mcg tablet RxNorm: 261194 TAKE ONE TABLET BY MOUTH FIVE DAYS A WEEK 01/11/2016 02/24/2016 Inactive Wellbutrin 75 mg tablet RxNorm: 334619 TAKE ONE TABLET BY MOUTH TWICE A DAY 01/11/2016 05/02/2016 Inactive Ativan 1 mg tablet RxNorm: 293495 TAKE ONE TABLET BY MOUTH THREE TIMES A DAY OR EVERY 6 HOURS NEEDED 12/03/2015 12/27/2015 Inactive Lipitor 10 mg tablet RxNorm: 800005 TAKE ONE TABLET BY MOUTH EVERY DAY 12/03/2015 08/28/2016 Inactive Ativan 1 mg tablet RxNorm: 546410 Tablet(s) TAKE ONE TABLET BY MOUTH THREE TIMES A DAY AND TAKE ONE TABLET BY MOUTH EVERY 6 HOURS NEEDED FOR ANXIETY 12/03/2015 12/02/2015 Inactive (Response to an electronic controlled substance refill request - RxReferenceNumber: [id number]) Wellbutrin 75 mg tablet RxNorm: 611895 1 Tablet(s) PO BID 11/13/2015 01/10/2016 Inactive Ativan 1 mg tablet RxNorm: 792075 Tablet(s) TAKE ONE TABLET BY MOUTH THREE TIMES A DAY AND TAKE ONE TABLET BY MOUTH EVERY 6 HOURS NEEDED FOR ANXIETY 09/23/2015 10/30/2015 Inactive (Response to an electronic controlled substance refill request - RxReferenceNumber: [id number]) buspirone 5 mg tablet RxNorm: 764147 TAKE ONE-HALF TABLET BY MOUTH TWICE A DAY 08/18/2015 03/01/2016 Inactive ceftriaxone 500 mg solution for injection RxNorm: 2880046 Inj 07/23/2015 07/23/2015 Inactive Zithromax Z-Que 250 mg tablet RxNorm: 791208 1 Tablet(s) PO UD 07/23/2015 07/27/2015 Inactive ZPACK buspirone 5 mg tablet RxNorm: 474056 1 Tablet(s) PO daily 07/06/2015 10/03/2015 Inactive buspirone 5 mg tablet RxNorm: 888639 1/2 Tablet(s) PO BID 05/26/2015 07/05/2015 Inactive Lipitor 10 mg tablet RxNorm: 382094 TAKE ONE TABLET BY MOUTH EVERY DAY 04/23/2015 10/19/2015 Inactive Ativan 1 mg tablet RxNorm: 057774 Tablet(s) TAKE ONE TABLET BY MOUTH THREE TIMES A DAY AND TAKE ONE TABLET BY MOUTH EVERY 6 HOURS NEEDED FOR ANXIETY 02/23/2015 04/01/2015 Inactive (Response to an electronic controlled substance refill request - RxReferenceNumber: [id number]) Synthroid 125 mcg tablet RxNorm: 927342 1 Tablet(s) PO UD twice weekly 12/10/2014 06/07/2015 Inactive Synthroid 112 mcg tablet RxNorm: 862948 1 Tablet(s) PO UD TAKE ONE TABLET BY MOUTH 5 days a week 12/10/2014 12/04/2015 Inactive Lexapro 20 mg tablet RxNorm: 282998 1 Tablet(s) PO daily 11/26/2014 11/12/2015 Inactive Lipitor 10 mg tablet RxNorm: 557088 TAKE ONE TABLET BY MOUTH EVERY DAY 10/21/2014 04/18/2015 Inactive amoxicillin 500 mg capsule RxNorm: 870167 1 Capsule(s) PO TID 10/15/2014 10/21/2014 Inactive take probiotic BID x 7 days during abt period amoxicillin 500 mg capsule RxNorm: 483398 1 Capsule(s) PO TID 10/15/2014 10/14/2014 Inactive take probiotic BID x 7 days during abt period Ativan 1 mg tablet RxNorm: 652731 TAKE ONE TABLET BY MOUTH THREE TIMES A DAY AND TAKE ONE TABLET BY MOUTH EVERY 6 HOURS NEEDED FOR ANXIETY 08/21/2014 09/28/2014 Inactive (Response to an electronic controlled substance refill request - RxReferenceNumber: [id number]) Ativan 1 mg tablet RxNorm: 580629 1 Tablet(s) PO tid and Q6 PRN as needed 08/18/2014 08/21/2014 Inactive doxycycline hyclate 100 mg tablet RxNorm: 753252 1 Tablet(s) PO BID 04/23/2014 05/25/2015 Inactive prednisone 10 mg tablets in a dose pack RxNorm: 616693 1 Tablet(s) PO 02/14/2014 05/25/2015 Inactive Kenalog 40 mg/mL suspension for injection RxNorm: 7305446 1 Milliliter(s) Inj 02/11/2014 02/11/2014 Inactive Keflex 500 mg capsule RxNorm: 658930 1 Capsule(s) PO TID 01/21/2014 01/27/2014 Inactive Kenalog 40 mg/mL suspension for injection RxNorm: 5614292 Milliliter(s) Inj 01/21/2014 01/21/2014 Inactive Synthroid 112 mcg tablet RxNorm: 981471 1 Tablet(s) PO daily TAKE ONE TABLET BY MOUTH EVERY DAY 12/05/2013 11/29/2014 Inactive Ativan 1 mg tablet RxNorm: 131058 1 Tablet(s) PO Q6 PRN 11/05/2013 02/02/2014 Inactive Lexapro 20 mg tablet RxNorm: 251028 1 Tablet(s) PO daily 11/05/2013 11/04/2013 Inactive Lexapro 20 mg tablet RxNorm: 784427 1 Tablet(s) PO daily 11/05/2013 10/30/2014 Inactive Lipitor 10 mg tablet RxNorm: 875073 1 Tablet(s) PO QPM TAKE ONE TABLET BY MOUTH EVERY DAY 09/30/2013 10/20/2014 Inactive Lexapro 20 mg tablet RxNorm: 580283 1 Tablet(s) PO daily 09/30/2013 11/04/2013 Inactive Synthroid 125 mcg tablet RxNorm: 502632 1 Tablet(s) PO daily 09/10/2013 12/04/2013 Inactive Synthroid 100 mcg tablet RxNorm: 926554 1 Tablet(s) PO daily TAKE ONE TABLET BY MOUTH EVERY DAY 09/06/2013 09/09/2013 Inactive Lipitor 10 mg tablet RxNorm: 599608 Tablet(s) PO TAKE ONE TABLET BY MOUTH EVERY DAY 08/15/2013 09/29/2013 Inactive Synthroid 100 mcg tablet RxNorm: 120102 1 Tablet(s) PO daily TAKE ONE TABLET BY MOUTH EVERY DAY 04/26/2013 09/05/2013 Inactive Ativan 1 mg tablet RxNorm: 822377 1 Tablet(s) PO Q6 PRN 03/13/2013 No Stop Date Active Synthroid 100 mcg tablet RxNorm: 401803 1 Tablet(s) PO daily TAKE ONE TABLET BY MOUTH EVERY DAY 03/13/2013 04/25/2013 Inactive Lexapro 20 mg tablet RxNorm: 289821 1/2 Tablet(s) PO BID 03/13/2013 09/29/2013 Inactive Synthroid 112 mcg tablet RxNorm: 431511 Tablet(s) PO TAKE ONE TABLET BY MOUTH EVERY DAY 01/08/2013 03/12/2013 Inactive Lexapro 20 mg tablet RxNorm: 029146 Tablet(s) PO TAKE 1/2 TABLET EVERY MORNING AND TAKE ONE TABLET BY MOUTH AT BEDTIME 10/18/2012 03/12/2013 Inactive Lipitor 20 mg tablet RxNorm: 466483 1/2 Tablet(s) PO daily 08/20/2012 02/04/2013 Inactive Lipitor 10 mg tablet RxNorm: 716879 1 Tablet(s) PO daily 05/23/2012 08/19/2012 Inactive Synthroid 112 mcg tablet RxNorm: 769425 1 Tablet(s) PO daily 12/16/2011 01/07/2013 Inactive Synthroid 112 mcg Tab RxNorm: 217290 1 Tablet(s) PO daily 12/16/2011 12/15/2011 Inactive Lipitor 10 mg tablet RxNorm: 152087 1 Tablet(s) PO daily 12/15/2011 05/22/2012 Inactive Synthroid 112 mcg Tab RxNorm: 290560 1 Tablet(s) PO every other day 11/09/2011 12/15/2011 Inactive every other day Synthroid 112 mcg Tab RxNorm: 846919 1 Tablet(s) PO every other day 10/21/2011 11/08/2011 Inactive every other day Synthroid 125 mcg Tab RxNorm: 219275 1 Tablet(s) PO every other day 10/21/2011 12/16/2011 Inactive every other day Lexapro 20 mg tablet RxNorm: 038285 1.5 Tablet(s) PO daily 1/2 pill in AM and 1 pill at bedtime 09/22/2011 04/18/2012 Inactive 1/2 q am 1 q hs diazepam 5 mg Tab RxNorm: 369370 1 Tablet(s) PO daily 1 tab bid prn 09/21/2011 05/17/2012 Inactive Lexapro 20 mg Tab RxNorm: 085239 1.5 Tablet(s) PO daily 1/2 pill in AM and 1 pill at bedtime 08/22/2011 09/21/2011 Inactive diazepam 5 mg Tab RxNorm: 316621 1 Tablet(s) PO daily 1 tab bid prn 06/20/2011 09/20/2011 Inactive diazepam 5 mg Tab RxNorm: 921783 1 Tablet(s) PO daily 1 tab bid prn 06/20/2011 06/19/2011 Inactive diazepam 5 mg Tab RxNorm: 322601 1 Tablet(s) PO daily 1 tab bid prn 06/17/2011 06/19/2011 Inactive Lipitor 10 mg Tab RxNorm: 536742 1 Tablet(s) PO daily 05/31/2011 11/26/2011 Inactive diazepam 5 mg Tab RxNorm: 624068 1 Tablet(s) PO BID 1 tab bid prn 04/21/2011 05/20/2011 Inactive Calcium 600 + D(3) Oral RxNorm: Oral No Start Date Active Menest 0.625 mg Tab RxNorm: 804880 1 Tablet(s) PO daily No Start Date 06/16/2011 Inactive Synthroid 125 mcg tablet RxNorm: 613732 Tablet(s) PO No Start Date 09/09/2013 Inactive Ativan 1 mg tablet RxNorm: 301828 1 Tablet(s) PO Q6 PRN No Start Date 08/21/2011 Inactive aspirin 81 mg Tab, Delayed Release RxNorm: 7703267 1 Tablet(s) PO daily No Start Date 09/29/2013 Inactive Lexapro 10 mg Tab RxNorm: 096926 1 Tablet(s) PO daily No Start Date 08/22/2011 Inactive prednisone 10 mg tablets in a dose pack RxNorm: 703888 1 Tablet(s) PO No Start Date 02/13/2014 Inactive Synthroid 112 mcg Tab RxNorm: 761837 Tablet(s) PO //sat/sun No Start Date 10/20/2011 Inactive lorazepam 1 mg Tab RxNorm: 257469 Tablet(s) PO Q6 PRN No Start Date 11/04/2013 Inactive Lipitor 20 mg tablet RxNorm: 912732 1/2 Tablet(s) PO daily No Start Date 08/20/2012 Inactive Vitamin D2 oral RxNorm: oral No Start Date 09/29/2013 Inactive Synthroid 125 mcg Tab RxNorm: 639730 1 Tablet(s) PO No Start Date 10/20/2011 Inactive synthroid 112 mcg leopoldo osroio Medication Administered Medication Codes Instructions Start Date Status Kenalog 40 mg/mL suspension for injection RxNorm: 4678327 1Milliliter 09/05/2016 No longer Active ceftriaxone 500 mg solution for injection RxNorm: 0525370 07/23/2015 No longer Active Kenalog 40 mg/mL suspension for injection RxNorm: 2922124 1Milliliter 02/11/2014 No longer Active Kenalog 40 mg/mL suspension for injection RxNorm: 8838485 Milliliter 01/21/2014 No longer Active Immunizations Vaccine Codes Date Status Pneumococcal (Adult) CVX: 133 11/13/2015 completed Influenza CVX: 141 04/15/2014 completed Pneumococcal (Adult) CVX: 33 04/15/2014 completed PPD Unknown 10/10/2013 completed Influenza CVX: 141 09/30/2013 completed Assessments Condition Codes Effective Dates 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 ICD-9: 244.0 02/06/2017 [...] Visit Reason For Visit Effective Dates Notes depression 02/06/2017 Annual Medicare Wellness Exam 11/17/2016 [...] hTSH II 1.07 uIU/mL 11/17/2016 Free T4 Yuz109 FREE T4 1.02 ng/dL 11/17/2016 Lipid Ord30 CHOL 195 mg/dL 10/13/2016 Lipid Ord30 HDL 68.0 mg/dl 10/13/2016 Lipid Ord30 TRIG 69 mg/dL 10/13/2016 Lipid Ord30 LDL 113 mg/dL 10/13/2016 Lipid Ord30 C/HDL 2.9 Ratio 10/13/2016 Comp Metabolic Ajg185 NA 138 mEq/L 10/13/2016 Comp Metabolic Tab748 K 4.4 mEq/L 10/13/2016 Comp Metabolic Xru453 CL 102 mEq/L 10/13/2016 Comp Metabolic Hfn941 CO2 29.0 mEq/L 10/13/2016 Comp Metabolic Oax829 ANION GAP 11 10/13/2016 Comp Metabolic Kzv927 GLUCOSE 85 mg/dL 10/13/2016 Comp Metabolic Tza119 Creat 1.0 mg/dL 10/13/2016 Comp Metabolic Nfw708 eGFR 59 ml/min/1.73m2 10/13/2016 Comp Metabolic Amm891 BUN 21 mg/dL 10/13/2016 Comp Metabolic Uwi621 B/C Ratio 21.2 Ratio 10/13/2016 Comp Metabolic Sss137 CALCIUM 9.7 mg/dL 10/13/2016 Comp Metabolic Day634 ALK PHOS 70 U/L 10/13/2016 Comp Metabolic Ipc401 AST(SGOT) 17 U/L 10/13/2016 Comp Metabolic Iix585 ALT(SGPT) 14 U/L 10/13/2016 Comp Metabolic Xri889 BILI T 0.9 mg/dL 10/13/2016 Comp Metabolic Zqr652 ALBUMIN 4.4 g/dL 10/13/2016 Comp Metabolic Cys898 TPRO 7.1 g/dL 10/13/2016 Comp Metabolic Hto651 GLOB 2.7 g/dL 10/13/2016 Comp Metabolic Lga503 A/G Ratio 1.6 Ratio 10/13/2016 Comp Metabolic Zid911 Osmo 278 mOsmo 10/13/2016 Cbc With Differential [...] 29.7 pg 10/13/2016 Cbc With Differential Ord2 [place]% 7.7 % 10/13/2016 Cbc With Differential Ord2 [...] 1.43 K/ul 10/13/2016 Cbc With Differential Ord2 [place] ABS# 0.5 K/ul 10/13/2016 Cbc With Differential Ord2 Eos ABS# 0.1 K/ul 10/13/2016 Cbc With Differential Ord2 Baso ABS# 0.0 K/ul 10/13/2016 Free T4 Ufe663 FREE T4 1.31 ng/dL 08/17/2016 Tsh Ord6 hTSH II 0.64 uIU/mL 08/17/2016 Free T4 Tuc842 FREE T4 1.49 ng/dL 05/10/2016 Comp Metabolic Tvd382 NA 139 mEq/L 05/10/2016 Comp Metabolic Emr138 K 4.5 mEq/L 05/10/2016 Comp Metabolic Rss561 CL 104 mEq/L 05/10/2016 Comp Metabolic Njw873 CO2 24.0 mEq/L 05/10/2016 Comp Metabolic Bzo749 ANION GAP 16 05/10/2016 Comp Metabolic Zsi879 GLUCOSE 87 mg/dL 05/10/2016 Comp Metabolic Fyk514 Creat 0.9 mg/dL 05/10/2016 Comp Metabolic Qhn005 eGFR 71 ml/min/1.73m2 05/10/2016 Comp Metabolic Gzq816 BUN 12 mg/dL 05/10/2016 Comp Metabolic Jze428 B/C Ratio 14.1 Ratio 05/10/2016 Comp Metabolic Ztp388 CALCIUM 9.6 mg/dL 05/10/2016 Comp Metabolic Vrf948 ALK PHOS 89 U/L 05/10/2016 Comp Metabolic Pxj940 AST(SGOT) 17 U/L 05/10/2016 Comp Metabolic Lpq266 ALT(SGPT) 17 U/L 05/10/2016 Comp Metabolic Ztx122 BILI T 0.9 mg/dL 05/10/2016 Comp Metabolic Jwz833 ALBUMIN 4.2 g/dL 05/10/2016 Comp Metabolic Qqm192 TPRO 6.7 g/dL 05/10/2016 Comp Metabolic Nfe849 GLOB 2.5 g/dL 05/10/2016 Comp Metabolic Bhf001 A/G Ratio 1.7 Ratio 05/10/2016 Comp Metabolic Pdz653 Osmo 277 mOsmo 05/10/2016 Cbc With Differential [...] 23.8 % 05/10/2016 Cbc With Differential Ord2 [place]% 8.3 % 05/10/2016 Cbc With Differential Ord2 [...] 1.57 K/ul 05/10/2016 Cbc With Differential Ord2 [place] ABS# 0.6 K/ul 05/10/2016 Cbc With Differential Ord2 Eos ABS# 0.2 K/ul 05/10/2016 Cbc With Differential Ord2 Baso ABS# 0.0 K/ul 05/10/2016 Tsh Ord6 hTSH II 0.03 uIU/mL 05/10/2016 Free T4 Vir614 FREE T4 1.67 ng/dL 02/18/2016 Tsh Ord6 hTSH II 0.06 uIU/mL 02/18/2016 Comp Metabolic Hvf706 NA 138 mEq/L 02/18/2016 Comp Metabolic Dmi701 K 4.5 mEq/L 02/18/2016 Comp Metabolic Ccb340 CL 104 mEq/L 02/18/2016 Comp Metabolic Qsq561 CO2 26.0 mEq/L 02/18/2016 Comp Metabolic Cxg183 ANION GAP 13 02/18/2016 Comp Metabolic Urz899 GLUCOSE 88 mg/dL 02/18/2016 Comp Metabolic Obi822 Creat 0.9 mg/dL 02/18/2016 Comp Metabolic Iwp117 eGFR 69 ml/min/1.73m2 02/18/2016 Comp Metabolic Esw751 BUN 14 mg/dL 02/18/2016 Comp Metabolic Zdh357 B/C Ratio 16.1 Ratio 02/18/2016 Comp Metabolic Kvc477 CALCIUM 9.4 mg/dL 02/18/2016 Comp Metabolic Yll555 ALK PHOS 95 U/L 02/18/2016 Comp Metabolic Hpq544 AST(SGOT) 19 U/L 02/18/2016 Comp Metabolic Esy291 ALT(SGPT) 18 U/L 02/18/2016 Comp Metabolic Zrn283 BILI T 0.7 mg/dL 02/18/2016 Comp Metabolic Heu104 ALBUMIN 4.4 g/dL 02/18/2016 Comp Metabolic Ikd848 TPRO 6.9 g/dL 02/18/2016 Comp Metabolic Ebi085 GLOB 2.5 g/dL 02/18/2016 Comp Metabolic Lqo290 A/G Ratio 1.7 Ratio 02/18/2016 Comp Metabolic Exx662 Osmo 276 mOsmo 02/18/2016 Lipid Ord30 CHOL [...] 28.9 pg 02/18/2016 Cbc With Differential Ord2 [place]% 10.5 % 02/18/2016 Cbc With Differential Ord2 [...] 1.08 K/ul 02/18/2016 Cbc With Differential Ord2 [place] ABS# 0.6 K/ul 02/18/2016 Cbc With Differential Ord2 Eos ABS# 0.0 K/ul 02/18/2016 Cbc With Differential Ord2 Baso ABS# 0.0 K/ul 02/18/2016 Comp Metabolic Zcd889 NA 136 mEq/L 06/08/2015 Comp Metabolic Hue000 K 3.9 mEq/L 06/08/2015 Comp Metabolic Obf794 CL 103 mEq/L 06/08/2015 Comp Metabolic Shd011 CO2 25.0 mEq/L 06/08/2015 Comp Metabolic Ddt095 ANION GAP 12 06/08/2015 Comp Metabolic Tte530 GLUCOSE 91 mg/dL 06/08/2015 Comp Metabolic Uqb569 Creat 0.9 mg/dL 06/08/2015 Comp Metabolic Rro640 eGFR 68 ml/min/1.73m2 06/08/2015 Comp Metabolic Rpa214 BUN 10 mg/dL 06/08/2015 Comp Metabolic Svy636 B/C Ratio 11.4 Ratio 06/08/2015 Comp Metabolic Pab951 CALCIUM 9.4 mg/dL 06/08/2015 Comp Metabolic Ixg755 ALK PHOS 88 U/L 06/08/2015 Comp Metabolic Xdi385 AST(SGOT) 20 U/L 06/08/2015 Comp Metabolic Exm851 ALT(SGPT) 18 U/L 06/08/2015 Comp Metabolic Els602 BILI T 0.8 mg/dL 06/08/2015 Comp Metabolic Lgf552 ALBUMIN 4.4 g/dL 06/08/2015 Comp Metabolic Bvv927 TPRO 7.0 g/dL 06/08/2015 Comp Metabolic Ohb914 GLOB 2.6 g/dL 06/08/2015 Comp Metabolic Oru727 A/G Ratio 1.7 Ratio 06/08/2015 Comp Metabolic Ddr980 Osmo 271 mOsmo 06/08/2015 Tsh Ord6 hTSH [...] Ord2 RDW 14.4 % 06/08/2015 LYME EIA 4297282 LYME EIA 0.24 04/25/2014 TULAREM AB [id number] TULAREM AB <1:20 04/24/2014 RMSF IFA 4294923 IGG RMSF <1:16 04/24/2014 RMSF IFA 0591461 IGM RMSF <1:10 04/24/2014 E CHAFF AB 7843531 IGG E CHFF <1:16 04/24/2014 E CHAFF AB [id number] IGM E CHFF <1:10 04/24/2014 ICT OCCULT 7703496 ICT OCCULT NEG 10/11/2013 Review of Systems System Result Effective Dates Constitutional No recent illness 02/06/2017 Constitutional anorexia [...] sounds 10/15/2013 None Full Exam - General 1995 Musculoskeletal head and neck Overall: head atraumatic 10/15/2013 None Full Exam - General 1994 Musculoskeletal head and neck Overall: cervical spine benign 10/15/2013 None Full Exam - General 1994 Neurologic gait Overall: no ataxia, no unsteadiness 10/15/2013 None Full Exam - General 1995 Neurologic cranial nerves Overall: crainial nerves 2 [...] dentition 09/30/2013 None Full Exam - General 1995 Ears/Nose/Throat oral cavity/pharynx/larynx Overall: oral mucosa clear 09/30/2013 None Full Exam - General 1995 Ears/Nose/Throat oral cavity/pharynx/larynx Overall: oropharyngeal mucosa clear 09/30/2013 None Full Exam - General 1995 Ears/Nose/Throat oral cavity/pharynx/larynx Overall: no masses 09/30/2013 [...] retractions 03/13/2013 None Full Exam - General 1994 Respiratory respiratory effort/rhythm Overall: normal rate 03/13/2013 [...] unsteadiness 03/13/2013 None Full Exam - General 1995 Neurologic cranial nerves Overall: crainial nerves 2 - 12 grossly intact 03/13/2013 None Full Exam - General 1994 Psychiatric orientation/consciousness Overall: oriented to person, place and time 03/13/2013 None Full Exam - General 1995 Constitutional general appearance Overall: well developed 03/13/2013 None Full Exam - General 1995 Constitutional general appearance Overall: in no acute distress 03/13/2013 None Full Exam - General 1995 Constitutional general appearance Overall: well nourished 03/13/2013 None Full Exam - General 1995 Eyes pupils and irises Overall: pupils equal, [...] developed 10/04/2012 None Full Exam - General 1994 [...] masses 10/04/2012 None Full Exam - General 1995 Respiratory auscultation Overall: breath sounds clear bilaterally 10/04/2012 None Full Exam - General 1995 Respiratory respiratory effort/rhythm Overall: no retractions 10/04/2012 None Full Exam - General 1995 Respiratory respiratory effort/rhythm Overall: normal rate 10/04/2012 None Full Exam - General 1995 Cardiovascular [...] Procedure Codes Date PPPS, SUBSEQ VISIT CPT-4: S5415Jvrlxnx 11/17/2016 TRIAMCINOLONE ACET INJ NOS CPT-4: R9857Eqsyxdd 09/05/2016 PPPS, SUBSEQ VISIT CPT-4: S7198Ejiwnwu 11/13/2015 PNEUMOCOCCAL VACC 13 STEPHANIE IM Formatting Model/CDA Sections, Assigned to/Lila Colon SNOMED CT: 84168026 CPT-4: 08819Khhdcgt 11/13/2015 ADMIN PNEUMOCOCCAL VACCINE SNOMED CT: 17460686 CPT-4: M7141Perfamw 11/13/2015 ROCEPHIN, PER 250 MG CPT-4: E3715Ytnaxwe 07/23/2015 URINALYSIS NONAUTO W/O SCOPE CPT-4: 98022Ezsqftl 10/10/2014 ROUTINE VENIPUNCTURE CPT-4: 96203Cwitdwz 04/23/2014 Pneumococcal Polysaccharide Vaccine, 23-Valent, Ad CPT-4: 13951Ewbewqw 04/15/2014 ADMIN INFLUENZA VIRUS VAC CPT-4: T7518Yxtpjrb 04/15/2014 FLU VAC NO PRSV 4 STEPHANIE 3 YRS+ CPT-4: 86138Idxlmgi 04/15/2014 ADMIN PNEUMOCOCCAL VACCINE SNOMED CT: 59536512 CPT-4: E5046Wqwhtst 04/15/2014 THER/PROPH/DIAG INJ SC/IM CPT-4: 73222Iqrykon 02/11/2014 TRIAMCINOLONE ACET INJ NOS CPT-4: C7862Vtmcbzk 02/11/2014 TRIAMCINOLONE ACET INJ NOS CPT-4: W1358Utskqnf 01/21/2014 INITIAL PREVENTIVE EXAM CPT-4: L5741Xfxsqcs 09/30/2013 PRESCRIP TRANSMIT VIA ERX SY CPT-4: L1986Erqdfev 03/13/2013 Vital Signs Date Vital 02/06/2017 Blood Pressure 1: 140/80 Code: 8480-6 BMI: 29.8 Code: 20281-1 Heart Rate 1: 72 bpm Height: 5'5" SpO2: 97% Weight: 179 lbs 11/17/2016 Blood Pressure 1: 130/72 Code: 8480-6 BMI: 29.6 Code: 19311-6 Heart Rate 1: 62 bpm Height: 5'5" SpO2: 98% Waist Measure (cm): 91 cm Weight: 178 lbs 10/12/2016 Blood Pressure 1: 128/78 Code: 8480-6 BMI: 28.5 Code: 05643-3 Heart Rate 1: 62 bpm Height: 5'5" SpO2: 97% Weight: 171 lbs 09/05/2016 Blood Pressure 1: 122/70 Code: 8480-6 BMI: 28.0 Code: 49318-7 Heart Rate 1: 65 bpm Height: 5'5" SpO2: 94% Weight: 168 lbs 06/21/2016 Blood Pressure 1: 120/82 Code: 8480-6 BMI: 28.3 Code: 58776-2 Heart Rate 1: 65 bpm Height: 5'5" SpO2: 97% Weight: 170 lbs 05/24/2016 Blood Pressure 1: 136/80 Code: 8480-6 BMI: 28.1 Code: 94511-7 Heart Rate 1: 71 bpm Height: 5'5" SpO2: 96% Weight: 169 lbs 05/10/2016 Blood Pressure 1: 120/82 Code: 8480-6 BMI: 27.6 Code: 11890-6 Heart Rate 1: 86 bpm Height: 5'5" SpO2: 95% Weight: 166 lbs 05/03/2016 Blood Pressure 1: 124/78 Code: 8480-6 BMI: 28.1 Code: 63997-8 Heart Rate 1: 88 bpm Height: 5'5" SpO2: 97% Weight: 169 lbs 11/13/2015 Blood Pressure 1: 130/60 Code: 8480-6 BMI: 30.0 Code: 29432-9 Heart Rate 1: 7 bpm Height: 5'5" Waist Measure (cm): 97 cm Weight: 180 lbs 07/23/2015 Blood Pressure 1: 124/70 Code: 8480-6 BMI: 29.6 Code: 71759-2 Heart Rate 1: 74 bpm Height: 5'5" SpO2: 96% Temperature: 36.7 (C) / 98.1 (F) Weight: 178 lbs 07/06/2015 Blood Pressure 1: 138/78 Code: 8480-6 BMI: 29.6 Code: 69228-4 Heart Rate 1: 84 bpm Height: 5'5" SpO2: 96% Weight: 178 lbs 05/26/2015 Blood Pressure 1: 122/80 Code: 8480-6 BMI: 29.6 Code: 91611-4 Heart Rate 1: 84 bpm Height: 5'5" Weight: 178 lbs 02/16/2015 Blood Pressure 1: 124/82 Code: 8480-6 BMI: 29.0 Code: 83259-4 Heart Rate 1: 68 bpm Height: 5'5" Weight: 174 lbs 12/10/2014 Blood Pressure 1: 112/64 Code: 8480-6 BMI: 28.6 Code: 14912-0 Heart Rate 1: 80 bpm Height: 5'5" Weight: 172 lbs 10/16/2014 Blood Pressure 1: 128/84 Code: 8480-6 Heart Rate 1: 64 bpm Weight: 172 lbs 10/09/2014 Blood Pressure 1: 136/90 Code: 8480-6 BMI: 28.6 Code: 26801-8 Heart Rate 1: 76 bpm Height: 5'5" Weight: 172 lbs 08/26/2014 Blood Pressure 1: 118/72 Code: 8480-6 BMI: 29.0 Code: 53975-8 Heart Rate 1: 76 bpm Height: 5'5" Weight: 174 lbs 05/16/2014 Blood Pressure 1: 110/72 Code: 8480-6 BMI: 29.0 Code: 05554-2 Height: 5'5" Weight: 174 lbs 04/23/2014 Blood Pressure 1: 124/70 Code: 8480-6 BMI: 29.0 Code: 84590-7 Heart Rate 1: 72 bpm Height: 5'5" Weight: 174 lbs 04/15/2014 Temperature: 36.5 (C) / 97.7 (F) 01/21/2014 Blood Pressure 1: 98/62 Code: 8480-6 BMI: 29.0 Code: 82919- 5 Heart Rate 1: 84 bpm Height: 5'5" Temperature: 37.1 (C) / 98.7 (F) Weight: 174 lbs 12/05/2013 Blood Pressure 1: 138/88 Code: 8480-6 BMI: 29.0 Code: 29217-7 Heart Rate 1: 60 bpm Height: 5'5" Weight: 174 lbs 11/05/2013 Blood Pressure 1: 118/80 Code: 8480-6 BMI: 28.8 Code: 28901-7 Heart Rate 1: 76 bpm Height: 5'5" Weight: 173 lbs 10/15/2013 Blood Pressure 1: 120/78 Code: 8480-6 BMI: 29.1 Code: 47957-5 Heart Rate 1: 88 bpm Height: 5'5" Weight: 175 lbs 09/30/2013 Blood Pressure 1: 112/84 Code: 8480-6 BMI: 29.1 Code: 33103-6 Heart Rate 1: 68 bpm Height: 5'5" Weight: 175 lbs 03/13/2013 Blood Pressure 1: 112/84 Code: 8480-6 BMI: 28.6 Code: 68625-7 Heart Rate 1: 64 bpm Height: 5'5" Weight: 173 lbs 10/04/2012 Blood Pressure 1: 120/72 Code: 8480-6 BMI: 28.0 Code: 23331-8 Heart Rate 1: 64 bpm Height: 5'5" Weight: 169 lbs 08/22/2011 Blood Pressure 1: 134/84 Code: 8480-6 BMI: 27.5 Code: 65309-0 Heart Rate 1: 68 bpm Height: 5'5" Respiratory Rate: 16 bpm Weight: 166 lbs 8 oz 06/17/2011 Blood Pressure 1: 120/76 Code: 8480-6 BMI: 27.0 Code: 57282-4 Heart Rate 1: 58 bpm Height: 5'5" Respiratory Rate: 16 bpm Weight: 163 lbs Functional Status No Functional Status data History of Present Illness Symptom Name Status Result Effective Date Notes depression Quality intermittent 02/06/2017 None depression Quality [...] pt states that when this started, her desiraend was diagnosed with renal cell carcinoma, needed [...] data Encounters Encounter Performer Location Codes Date () 80159 EST. PATIENT, LEVEL III Diagnosis: Postprocedural hypothyroidism[ICD10: E89.0] Diagnosis: Major depressive disorder, recurrent, moderate[ICD10: F33.1] [facility] CPT-4: 10804 02/06/2017 ([id number] EST. PATIENT, LEVEL III Diagnosis: Generalized anxiety disorder[ICD10: F41.1] [facility] CPT-4: 90749 10/12/2016 ([id number]) 22238 EST. PATIENT, LEVEL III Diagnosis: Cough[ICD10: R05] Diagnosis: Acute upper respiratory infection, unspecified[ICD10: J06.9] [facility] CPT-4: 14968 09/05/2016 [id number]) 96059 EST. PATIENT, LEVEL III Diagnosis: Generalized anxiety disorder[ICD10: F41.1] Diagnosis: Major depressive disorder, recurrent, moderate[ICD10: F33.1] Diagnosis: Postprocedural hypothyroidism[ICD10: E89.0] Elina Alvarado MD, [facility] CPT-4: 65028 06/21/2016 ([id number]) 85645 EST. PATIENT, LEVEL III Diagnosis: Major depressive disorder, recurrent, moderate[ICD10: F33.1] Elina Alvarado MD, [facility] CPT-4: 23652 05/24/2016 [id number] 78533 EST. PATIENT, LEVEL III Diagnosis: Major depressive disorder, recurrent, moderate[ICD10: F33.1] Elina Alvarado MD, [facility] CPT-4: 14219 05/10/2016 [id number]) 01644 EST. PATIENT, LEVEL III Diagnosis: Generalized anxiety disorder[ICD10: F41.1] Diagnosis: Major depressive disorder, recurrent, moderate[ICD10: F33.1] Suma Alvarado MD, [facility] CPT-4: 47215 05/03/2016 [id number] 67296 EST. PATIENT, LEVEL III Diagnosis: Cough[ICD10: R05] Diagnosis: Acute upper respiratory infection, unspecified[ICD10: J06.9] Suma Alavrado MD, [facility] CPT-4: 25762 07/23/2015 [id number]) 52564 EST. PATIENT, LEVEL III Diagnosis: Hypothyroidism, unspecified[ICD10: E03.9] Diagnosis: Generalized anxiety disorder[ICD10: F41.1] Diagnosis: Other depressive episodes[ICD10: F32.8] Elina Alvarado MD, [facility] CPT-4: 70500 07/06/2015 [id number] 88403 EST. PATIENT, LEVEL IV Diagnosis: Generalized anxiety disorder[ICD10: F41.1] Diagnosis: Major depressive disorder, recurrent, unspecified[ICD10: F33.9] Elina Alvarado MD, [facility] CPT-4: 14590 05/26/2015 ([id number]) 07034 EST. PATIENT, LEVEL II Diagnosis: 2Nd degree burn of multiple fingers of right hand not including thumb[ICD9: 944.23] Suma Alvarado MD, [facility] CPT-4: 47370 02/16/2015 ([id number]) 45669 EST. PATIENT, LEVEL IV Diagnosis: Hammertoe[ICD9: 735.4] Diagnosis: Foot pain[ICD9: 729.5] Diagnosis: HYPOTHYROIDISM[ICD9: 244.9] Elina Alvarado MD, [facility] CPT-4: 47628 12/10/2014 ([id number]) 56216 EST. PATIENT, LEVEL III Diagnosis: Urinary incontinence[ICD9: 788.30] Diagnosis: Pelvic pain in female[ICD9: 625.9] Elina Alvarado MD, [facility] CPT- 4: 93767 10/16/2014 ([id number]) 19527 EST. PATIENT, LEVEL III Diagnosis: Urinary incontinence[ICD9: 788.30] Diagnosis: Pelvic pain in female[ICD9: 625.9] Suma Alvarado MD, [facility] CPT- 4: 91563 10/09/2014 ([id number]) 20218 EST. PATIENT, LEVEL III Diagnosis: HYPOTHYROIDISM[ICD9: 244.9] Elina Alvarado MD, [facility] CPT-4: 37304 08/26/2014 ([id number]) 61386 EST. PATIENT, LEVEL III Diagnosis: Neck pain[ICD9: 723.1] Diagnosis: Muscle tension headache[ICD9: 307.81] Suma Alvarado MD, [facility] CPT-4: 79774 05/16/2014 ([id number]) 86326 EST. PATIENT, LEVEL IV Diagnosis: Arthropod bite[ICD9: 919.4] Diagnosis: Poison diana dermatitis[ICD9: 692.6] Diagnosis: Arthralgia[ICD9: 719.40] Diagnosis: Myalgia[ICD9: 729.1] Elina Alvarado MD, [facility] CPT-4: 26998 04/23/2014 ([id number]) 40044 EST. PATIENT, LEVEL III Diagnosis: ACUTE URI[ICD9: 465.9] Diagnosis: COUGH[ICD9: 786.2] Suma Alvarado MD, [facility] CPT-4: 77167 01/21/2014 ([id number]) 65049 EST. PATIENT, LEVEL III Diagnosis: HYPOTHYROIDISM[ICD9: 244.9] Diagnosis: GENERALIZED ANXIETY DISEASE[ICD9: 300.02] Elina Alvarado MD [facility] CPT-4: 30078 12/05/2013 ([id number]) 82876 EST. PATIENT, LEVEL III Diagnosis: GENERALIZED ANXIETY DISEASE[ICD9: 300.02] Diagnosis: DEPRESSIVE DISORDER NEC[ICD9: 311] Elina Alvarado MD, [facility] CPT- 4: 96337 11/05/2013 ([id number]) 00031 EST. PATIENT, LEVEL III Diagnosis: HYPOTHYROIDISM[ICD9: 244.9] Elina Alvarado MD [facility] CPT-4: 63149 10/15/2013 ([id number]) Miscellaneous no charge Diagnosis: Colon cancer screening[ICD9: V76.51] Elina Alvarado MD [facility] CPT- 4: 70922 10/10/2013 ([id number]) 62504 EST. PATIENT, LEVEL IV Diagnosis: HYPOTHYROIDISM[ICD9: 244.9] Diagnosis: DEPRESSIVE DISORDER NEC[ICD9: 311] Diagnosis: GENERALIZED ANXIETY DISEASE[ICD9: 300.02] Diagnosis: HYPERLIPIDEMIA[ICD9: 272.4] Elina Alvarado MD [facility] CPT-4: 64985 03/13/2013 ([id number]) 66854 EST. PATIENT, LEVEL IV Diagnosis: HYPERLIPIDEMIA[ICD9: 272.4] Diagnosis: HYPOTHYROIDISM[ICD9: 244.9] Diagnosis: GENERALIZED ANXIETY DISEASE[ICD9: 300.02] Diagnosis: DEPRESSIVE DISORDER NEC[ICD9: 311] Elina Alvarado MD [facility] CPT- 4: 59815 10/04/2012 ([id number]) 57908 EST. PATIENT, LEVEL III Diagnosis: VICTOR HUGO (generalized anxiety disorder)[ICD9: 300.02] Diagnosis: Chronic depression[ICD9: 311] Elina Alvarado MD [facility] CPT-4: 81715 08/22/2011 90488 EST. PATIENT, LEVEL IV Diagnosis: CHEST PAIN NEC[ICD9: 786.59] Diagnosis: HYPERLIPIDEMIA[ICD9: 272.4] Diagnosis: POSTSURGICAL HYPOTHYROIDISM[ICD9: 244.0] [facility] CPT-4: 29534 06/17/2011 Plan of Care Planned Activity Notes Codes Status Date Visit Plan: Hypothyroidism - pt with chronic [...] exposure. No change in current medications. 02/06/2017 Patient Education: Patient Medication Summary Completed [...] surrogate. 11/17/2016 [phone] [facility] - Annual Wellness Visit 11/17/2016 Patient Education: [...] current medications. 10/12/2016 Appointment: Elina Alvarado WPtel: [facility] [place] (15 min) Moderate 10/12/2016 Patient Education: Patient Medication Summary Completed 10/12/2016 Appointment: Suma Choi WPtel: [phone] [phone] [place] (10 min) Simple 09/05/2016 Patient Education: [...] with lexapro 06/21/2016 Appointment: Elina Alvarado [facility]Ptel[phone] [facility] [place] (15 min) Moderate 06/21/2016 Patient Education: Patient Medication Summary Completed 06/21/2016 Visit Plan: Depression - improved with lexapro - continue with current treatment and counseling. 05/24/2016 Appointment: Elina Alvarado WPtel[phone] [facility] [place] (15 min) Moderate 05/24/2016 Patient Education: Patient Medication Summary Completed 05/24/2016 Visit Plan: Depression - improved on the Lexapro - stop ativan - start on xanax 05/10/2016 Appointment: Elina Alvarado WPtel[facility] [phone] [facility] [place] (15 min) Moderate 05/10/2016 Patient Education: [...] Summary Completed 05/03/2016 Appointment: Suma Choi WPtel: [phone] [phone] [place] (15 min) Moderate 02/26/2016 Visit Plan: [...] risk and to maintain independece in the home.Qyyfkolgwd-xmumvpabeuoc-wozssz to wellbutrin Pneumonia 13 administered today in [...] risk and to maintain independece in the home.Bfxkfwsyzg-riynvtjhcnce-abmbsb to wellbutrin Pneumonia 13 administered today in the office 11/13/2015 Appointment: [facility] - Annual Wellness Visit 11/13/2015 Patient Education: Patient Medication Summary Completed 11/13/2015 Patient Education: Obesity Completed 11/13/2015 Care Plan[facility] Ordered 11/13/2015 Appointment: Lab Draw 08/10/2015 Visit [...] current medications. 07/06/2015 Appointment: Elina Alvarado WPtel: [facility] (30 min) Complex 07/06/2015 Patient Education: Patient [...] upon discharge. 12/10/2014 Appointment: Elina Alvarado WPtel: [facility] Surgical Clearance 12/10/2014 Patient Education: Patient Medication Summary Completed 12/10/2014 Visit Plan: Urinary incontinence and Pelvic discomfort - recommended pt to have evaluation by Dr. Brandt - pt agreeable to referral. Pt is to call if abdominal pain does not improve. 10/16/2014 Appointment: Elina Alvarado WPtel: [facility] Follow up 10/16/2014 Patient Education: Patient Medication Summary Completed 10/16/2014 Care Plan: Referral Order SNOMED-CT : [id number] Ordered 10/16/2014 Patient Education: Patient Medication Summary Completed 10/10/2014 Visit Plan: Pelvic pain-history of mesh implant-recommend CT abd/pelvis to evaluate for any abnormality-refer to Dr Woods if pain does not improveUrinary incontinence-check UA with C&S if indicated 10/09/2014 Patient Education: Patient Medication Summary Completed 10/09/2014 Care Plan: CT ABD & PELV 1/> [facility] : 78857-6 Ordered 10/09/2014 Visit Plan: Hypothyroidism - pt with chronic hypothyroidism, continue with current medication, will monitor pt to signs or symptoms of lack of adequate supplementation. Pt is to continue with current dose of medication unless directed otherwise. Check labs at regular intervals wither q 3 months or q 6 months based on previous levels of control. 08/26/2014 Appointment: Elina Alvarado WPtel: [facility] Follow up 08/26/2014 Patient Education: Patient [...] with screening. 04/23/2014 Appointment: Elina Alvarado WPtel: [facility] Sick 04/23/2014 Patient Education: Patient Medication Summary Completed 04/23/2014 Care Plan: Referral Order SNOMED-CT : [id number] Ordered 04/23/2014 Appointment: Nurse Visit 04/15/2014 Patient Education: Patient Medication Summary Completed 04/15/2014 Appointment: Elina Alvarado WPtel: [phone] [facility] [place] Injection 02/11/2014 Patient Education: Patient Medication [...] treatment. 12/05/2013 Appointment: Elina Alvarado WPtel: [phone] [facility] Follow up 12/05/2013 Patient Education: Patient Medication [...] medications. 11/05/2013 Appointment: Elina Alvarado WPtel: [phone] [facility] Follow up 11/05/2013 Patient Education: Patient Medication [...] control. 10/15/2013 Appointment: Elina Alvarado WPtel: [phone] [facility] [facility] 10/15/2013 Patient Education: Patient Medication [...] care surrogate. 09/30/2013 Appointment: Elina Alvarado WPtel: [phone] [facility] [facility] - Initial Preventive Physical Exam 09/30/2013 Patient Education: Patient Medication Summary Completed 09/30/2013 Appointment: Elina Alvarado WPtel: [phone] [facility] [facility] - Initial Preventive Physical Exam 09/11/2013 Visit [...] use. 03/13/2013 Appointment: Elina Alvarado WPtel: [phone] [facility] Follow up 03/13/2013 Patient Education: Patient Medication [...] current medications. 10/04/2012 Appointment: Elina Alvarado WPtel: [phone] [facility] Follow up 10/04/2012 Patient Education: Patient Medication [...] attacks. 08/22/2011 Appointment: Elina Alvarado WPtel: [phone] [facility] Other 08/22/2011 Patient Education: Patient Medication Summary Completed 08/22/2011 Visit Plan: check labsappointment with dr jennifer dickerson, echocardiogramthyroid ultrasoundif the chest pain becomes acute, worsens, or does not go away, go to the emergency roomHYPERLIPIDEMIA - CONTINUE WITH CURRENT TREATMENT.DISCUSSED DIET CHANGES, NEED LOW FAT DIET.HYPOTHYROIDISM - CONTINUE WITH CURRENT MEDICATIONS, CHECH THYROID ULTRASOUND 06/17/2011 Appointment: Elina Alvarado WPtel: [phone] [facility] Other 06/17/2011 Patient Education: Patient Medication Summary [...] and to maintain independece in the home. Nkwprllznd-mzweixwlcyza-sywuyq to wellbutrin Pneumonia 13 administered today in [...] and to maintain independece in the home. Heniezgwct-dzjviklolrzz-imqhkg to wellbutrin Pneumonia 13 administered today in [...] situational exposure. No change in current medications. BUSPIRONE 5MG 1/2 TAB TWICE DAILY . [...]
--- OUTSIDE RECORDS SUMMARY | 2018-12-27 09:10 | XMS REPORT | CCD ---
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 2.6 g/dL 11/26/2018 Comp Metabolic Gmq690 A/G Ratio 1.5 Ratio 11/26/2018 Comp Metabolic Ipn642 Osmo 280 mOsmo 11/26/2018 Tsh Ord6 TSH (3rd IS) 1.65 uIU/mL 11/26/2018 T4 Ord4 T4 11.1 ug/dL 03/12/2018 Tsh Ord6 TSH (3rd IS) 0.99 uIU/mL 03/12/2018 Cbc With Differential Ord2 WBC 6.32 K/ul 11/23/2017 Cbc With Differential Ord2 RBC 4.45 M/ul 11/23/2017 Cbc With Differential Ord2 HGB 13.2 g/dl 11/23/2017 Cbc With Differential Ord2 HCT 39.5 % 11/23/2017 Cbc With Differential Ord2 Neut% 59.4 % 11/23/2017 Cbc With Differential Ord2 MCV 88.8 fl 11/23/2017 Cbc With Differential Ord2 Lymph% 28.0 % 11/23/2017 Cbc With Differential Ord2 MCH 29.7 pg 11/23/2017 Cbc With Differential Ord2 Baldwin% 9.0 % 11/23/2017 Cbc With Differential Ord2 MCHC 33.4 pg 11/23/2017 Cbc With Differential Ord2 Eos% 3.3 % 11/23/2017 Cbc With Differential Ord2 PLT 467 K/ul 11/23/2017 Cbc With Differential Ord2 Baso% 0.3 % 11/23/2017 Cbc With Differential Ord2 RDW 13.1 % 11/23/2017 Cbc With Differential Ord2 Neut ABS# 3.75 K/ul 11/23/2017 Cbc With Differential Ord2 Lymph ABS# 1.77 K/ul 11/23/2017 Cbc With Differential Ord2 Baldwin ABS# 0.6 K/ul 11/23/2017 Cbc With Differential Ord2 Eos ABS# 0.2 K/ul 11/23/2017 Cbc With Differential Ord2 Baso ABS# 0.0 K/ul 11/23/2017 Tsh Ord6 TSH (3rd IS) 0.17 uIU/mL 11/23/2017 Free T4 Gic589 FREE T4 1.10 ng/dL 11/23/2017 Comp Metabolic Jvt498 NA 142 mEq/L 11/23/2017 Comp Metabolic Oyi590 K 4.4 mEq/L 11/23/2017 Comp Metabolic Diq585 CL 109 mEq/L 11/23/2017 Comp Metabolic Afl253 CO2 28.0 mEq/L 11/23/2017 Comp Metabolic Wrc715 ANION GAP 9 11/23/2017 Comp Metabolic Lvt723 GLUCOSE 106 mg/dL 11/23/2017 Comp Metabolic Mpu985 Creat 0.9 mg/dL 11/23/2017 Comp Metabolic Cqf571 eGFR 68 ml/min/1.73m2 11/23/2017 Comp Metabolic Qbj398 BUN 17 mg/dL 11/23/2017 Comp Metabolic Qqm267 B/C Ratio 19.3 Ratio 11/23/2017 Comp Metabolic Cvn953 CALCIUM 9.0 mg/dL 11/23/2017 Comp Metabolic Afq070 ALK PHOS 65 U/L 11/23/2017 Comp Metabolic Iiy672 AST(SGOT) 18 U/L 11/23/2017 Comp Metabolic Xtj862 ALT(SGPT) 16 U/L 11/23/2017 Comp Metabolic Yzb035 BILI T 0.5 mg/dL 11/23/2017 Comp Metabolic Owq461 ALBUMIN 4.2 g/dL 11/23/2017 Comp Metabolic Hwa716 TPRO 6.5 g/dL 11/23/2017 Comp Metabolic Etl174 GLOB 2.3 g/dL 11/23/2017 Comp Metabolic Ofr821 A/G Ratio 1.8 Ratio 11/23/2017 Comp Metabolic Yjq005 Osmo 285 mOsmo 11/23/2017 Lipid Ord30 CHOL 160 mg/dL 11/23/2017 Lipid Ord30 HDL 49.0 mg/dl 11/23/2017 Lipid Ord30 TRIG 133 mg/dL 11/23/2017 Lipid Ord30 LDL 84 mg/dL 11/23/2017 Lipid Ord30 C/HDL 3.3 Ratio 11/23/2017 Lipid Ord30 CHOL 163 mg/dL 06/07/2017 Lipid Ord30 HDL 52.0 mg/dl 06/07/2017 Lipid Ord30 TRIG 120 mg/dL 06/07/2017 Lipid Ord30 LDL 87 mg/dL 06/07/2017 Lipid Ord30 C/HDL 3.1 Ratio 06/07/2017 Tsh Ord6 hTSH II 4.83 uIU/mL 06/07/2017 Comp Metabolic Zod049 NA 141 mEq/L 06/07/2017 Comp Metabolic Mli585 K 4.3 mEq/L 06/07/2017 Comp Metabolic Euh900 CL 106 mEq/L 06/07/2017 Comp Metabolic Mjc782 CO2 26.0 mEq/L 06/07/2017 Comp Metabolic Mtn626 ANION GAP 13 06/07/2017 Comp Metabolic Rug538 GLUCOSE 93 mg/dL 06/07/2017 Comp Metabolic Nqj151 Creat 0.9 mg/dL 06/07/2017 Comp Metabolic Qwj104 eGFR 65 ml/min/1.73m2 06/07/2017 Comp Metabolic Avx220 BUN 10 mg/dL 06/07/2017 Comp Metabolic Gil833 B/C Ratio 11.0 Ratio 06/07/2017 Comp Metabolic Kae589 CALCIUM 8.9 mg/dL 06/07/2017 Comp Metabolic Ucf031 ALK PHOS 69 U/L 06/07/2017 Comp Metabolic Oyb246 AST(SGOT) 18 U/L 06/07/2017 Comp Metabolic Bvu195 ALT(SGPT) 15 U/L 06/07/2017 Comp Metabolic Bsn074 BILI T 0.5 mg/dL 06/07/2017 Comp Metabolic Cez961 ALBUMIN 4.1 g/dL 06/07/2017 Comp Metabolic Cde347 TPRO 6.5 g/dL 06/07/2017 Comp Metabolic Rmp940 GLOB 2.4 g/dL 06/07/2017 Comp Metabolic Nhd933 A/G Ratio 1.7 Ratio 06/07/2017 Comp Metabolic Why941 Osmo 280 mOsmo 06/07/2017 Cbc With Differential Ord2 WBC 5.38 K/ul 06/07/2017 Cbc With Differential Ord2 RBC 4.24 M/ul 06/07/2017 Cbc With Differential Ord2 HGB 13.0 g/dl 06/07/2017 Cbc With Differential Ord2 HCT 38.6 % 06/07/2017 Cbc With Differential Ord2 Neut% 56.7 % 06/07/2017 Cbc With Differential Ord2 MCV 91.0 fl 06/07/2017 Cbc With Differential Ord2 Lymph% 30.1 % 06/07/2017 Cbc With Differential Ord2 MCH 30.7 pg 06/07/2017 Cbc With Differential Ord2 Baldwin% 9.1 % 06/07/2017 Cbc With Differential Ord2 MCHC 33.7 pg 06/07/2017 Cbc With Differential Ord2 Eos% 3.5 % 06/07/2017 Cbc With Differential Ord2 PLT 479 K/ul 06/07/2017 Cbc With Differential Ord2 Baso% 0.6 % 06/07/2017 Cbc With Differential Ord2 RDW 12.9 % 06/07/2017 Cbc With Differential Ord2 Neut ABS# 3.05 K/ul 06/07/2017 Cbc With Differential Ord2 Lymph ABS# 1.62 K/ul 06/07/2017 Cbc With Differential Ord2 Baldwin ABS# 0.5 K/ul 06/07/2017 Cbc With Differential Ord2 Eos ABS# 0.2 K/ul 06/07/2017 Cbc With Differential Ord2 Baso ABS# 0.0 K/ul 06/07/2017 Free T4 Auo296 FREE T4 0.92 ng/dL 06/07/2017 Tsh Ord6 hTSH II 1.07 uIU/mL 11/17/2016 Free T4 Rxa539 FREE T4 1.02 ng/dL 11/17/2016 Lipid Ord30 CHOL 195 mg/dL 10/13/2016 Lipid Ord30 HDL 68.0 mg/dl 10/13/2016 Lipid Ord30 TRIG 69 mg/dL 10/13/2016 Lipid Ord30 LDL 113 mg/dL 10/13/2016 Lipid Ord30 C/HDL 2.9 Ratio 10/13/2016 Comp Metabolic Jim474 NA 138 mEq/L 10/13/2016 Comp Metabolic Qcs841 K 4.4 mEq/L 10/13/2016 Comp Metabolic Gnw255 CL 102 mEq/L 10/13/2016 Comp Metabolic Zip180 CO2 29.0 mEq/L 10/13/2016 Comp Metabolic Oor986 ANION GAP 11 10/13/2016 Comp Metabolic Mja022 GLUCOSE 85 mg/dL 10/13/2016 Comp Metabolic Xxr699 Creat 1.0 mg/dL 10/13/2016 Comp Metabolic Bzc293 eGFR 59 ml/min/1.73m2 10/13/2016 Comp Metabolic Thh923 BUN 21 mg/dL 10/13/2016 Comp Metabolic Ttl351 B/C Ratio 21.2 Ratio 10/13/2016 Comp Metabolic Ncd379 CALCIUM 9.7 mg/dL 10/13/2016 Comp Metabolic Wba031 ALK PHOS 70 U/L 10/13/2016 Comp Metabolic Mnb367 AST(SGOT) 17 U/L 10/13/2016 Comp Metabolic Cbg420 ALT(SGPT) 14 U/L 10/13/2016 Comp Metabolic Nnx095 BILI T 0.9 mg/dL 10/13/2016 Comp Metabolic Eaj366 ALBUMIN 4.4 g/dL 10/13/2016 Comp Metabolic Vbz557 TPRO 7.1 g/dL 10/13/2016 Comp Metabolic Ghe164 GLOB 2.7 g/dL 10/13/2016 Comp Metabolic Xqk952 A/G Ratio 1.6 Ratio 10/13/2016 Comp Metabolic Ufk187 Osmo 278 mOsmo 10/13/2016 Cbc With Differential Ord2 WBC 6.00 K/ul 10/13/2016 Cbc With Differential Ord2 RBC 4.71 M/ul 10/13/2016 Cbc With Differential Ord2 HGB 14.0 g/dl 10/13/2016 Cbc With Differential Ord2 HCT 42.2 % 10/13/2016 Cbc With Differential Ord2 Neut% 66.4 % 10/13/2016 Cbc With Differential Ord2 MCV 89.6 fl 10/13/2016 Cbc With Differential Ord2 Lymph% 23.8 % 10/13/2016 Cbc With Differential Ord2 MCH 29.7 pg 10/13/2016 Cbc With Differential Ord2 Baldwin% 7.7 % 10/13/2016 Cbc With Differential Ord2 [...] 1.43 K/ul 10/13/2016 Cbc With Differential Ord2 Baldwin ABS# 0.5 K/ul 10/13/2016 Cbc With Differential Ord2 Eos ABS# 0.1 K/ul 10/13/2016 Cbc With Differential Ord2 Baso ABS# 0.0 K/ul 10/13/2016 Free T4 Aaf816 FREE T4 1.31 ng/dL 08/17/2016 Tsh Ord6 hTSH II 0.64 uIU/mL 08/17/2016 Free T4 Omv092 FREE T4 1.49 ng/dL 05/10/2016 Comp Metabolic Bwu723 NA 139 mEq/L 05/10/2016 Comp Metabolic Pux847 K 4.5 mEq/L 05/10/2016 Comp Metabolic Svt032 CL 104 mEq/L 05/10/2016 Comp Metabolic Hvf983 CO2 24.0 mEq/L 05/10/2016 Comp Metabolic Gmg734 ANION GAP 16 05/10/2016 Comp Metabolic Mqe097 GLUCOSE 87 mg/dL 05/10/2016 Comp Metabolic Jve388 Creat 0.9 mg/dL 05/10/2016 Comp Metabolic She439 eGFR 71 ml/min/1.73m2 05/10/2016 Comp Metabolic Eln926 BUN 12 mg/dL 05/10/2016 Comp Metabolic Dxc796 B/C Ratio 14.1 Ratio 05/10/2016 Comp Metabolic Gjy075 CALCIUM 9.6 mg/dL 05/10/2016 Comp Metabolic Ehu087 ALK PHOS 89 U/L 05/10/2016 Comp Metabolic Nhx844 AST(SGOT) 17 U/L 05/10/2016 Comp Metabolic Ivk761 ALT(SGPT) 17 U/L 05/10/2016 Comp Metabolic Lts391 BILI T 0.9 mg/dL 05/10/2016 Comp Metabolic Fxt605 ALBUMIN 4.2 g/dL 05/10/2016 Comp Metabolic Htt209 TPRO 6.7 g/dL 05/10/2016 Comp Metabolic Nxn919 GLOB 2.5 g/dL 05/10/2016 Comp Metabolic Xas041 A/G Ratio 1.7 Ratio 05/10/2016 Comp Metabolic Eex345 Osmo 277 mOsmo 05/10/2016 Cbc With Differential [...] 23.8 % 05/10/2016 Cbc With Differential Ord2 MCH 29.1 pg 05/10/2016 Cbc With Differential Ord2 Baldwin% 8.3 % 05/10/2016 Cbc With Differential Ord2 MCHC [...] 1.57 K/ul 05/10/2016 Cbc With Differential Ord2 Baldwin ABS# 0.6 K/ul 05/10/2016 Cbc With Differential Ord2 Eos ABS# 0.2 K/ul 05/10/2016 Cbc With Differential Ord2 Baso ABS# 0.0 K/ul 05/10/2016 Tsh Ord6 hTSH II 0.03 uIU/mL 05/10/2016 Free T4 Kcd165 FREE T4 1.67 ng/dL 02/18/2016 Tsh Ord6 hTSH II 0.06 uIU/mL 02/18/2016 Comp Metabolic Vnz721 NA 138 mEq/L 02/18/2016 Comp Metabolic Nrq552 K 4.5 mEq/L 02/18/2016 Comp Metabolic Uox522 CL 104 mEq/L 02/18/2016 Comp Metabolic Quj504 CO2 26.0 mEq/L 02/18/2016 Comp Metabolic Lcx981 ANION GAP 13 02/18/2016 Comp Metabolic Ucy009 GLUCOSE 88 mg/dL 02/18/2016 Comp Metabolic Fwa422 Creat 0.9 mg/dL 02/18/2016 Comp Metabolic Zhv389 eGFR 69 ml/min/1.73m2 02/18/2016 Comp Metabolic Wzv775 BUN 14 mg/dL 02/18/2016 Comp Metabolic Qvm179 B/C Ratio 16.1 Ratio 02/18/2016 Comp Metabolic Nsl547 CALCIUM 9.4 mg/dL 02/18/2016 Comp Metabolic Hdk156 ALK PHOS 95 U/L 02/18/2016 Comp Metabolic Zkw637 AST(SGOT) 19 U/L 02/18/2016 Comp Metabolic Vpu258 ALT(SGPT) 18 U/L 02/18/2016 Comp Metabolic Brp325 BILI T 0.7 mg/dL 02/18/2016 Comp Metabolic Aeo769 ALBUMIN 4.4 g/dL 02/18/2016 Comp Metabolic Seg976 TPRO 6.9 g/dL 02/18/2016 Comp Metabolic Jsa930 GLOB 2.5 g/dL 02/18/2016 Comp Metabolic Ono319 A/G Ratio 1.7 Ratio 02/18/2016 Comp Metabolic Rju528 Osmo 276 mOsmo 02/18/2016 Lipid Ord30 CHOL [...] 18.8 % 02/18/2016 Cbc With Differential Ord2 MCH 28.9 pg 02/18/2016 Cbc With Differential Ord2 Baldwin% 10.5 % 02/18/2016 Cbc With Differential Ord2 MCHC [...] 1.08 K/ul 02/18/2016 Cbc With Differential Ord2 [place] ABS# 0.6 K/ul 02/18/2016 Cbc With Differential Ord2 Eos ABS# 0.0 K/ul 02/18/2016 Cbc With Differential Ord2 Baso ABS# 0.0 K/ul 02/18/2016 Comp Metabolic Ogg960 NA 136 mEq/L 06/08/2015 Comp Metabolic Fpw256 K 3.9 mEq/L 06/08/2015 Comp Metabolic Tzg056 CL 103 mEq/L 06/08/2015 Comp Metabolic Eqe816 CO2 25.0 mEq/L 06/08/2015 Comp Metabolic Mja082 ANION GAP 12 06/08/2015 Comp Metabolic Ald536 GLUCOSE 91 mg/dL 06/08/2015 Comp Metabolic Dzl416 Creat 0.9 mg/dL 06/08/2015 Comp Metabolic Xcm152 eGFR 68 ml/min/1.73m2 06/08/2015 Comp Metabolic Bgf187 BUN 10 mg/dL 06/08/2015 Comp Metabolic Nvo277 B/C Ratio 11.4 Ratio 06/08/2015 Comp Metabolic Bpx850 CALCIUM 9.4 mg/dL 06/08/2015 Comp Metabolic Soq510 ALK PHOS 88 U/L 06/08/2015 Comp Metabolic Wwk637 AST(SGOT) 20 U/L 06/08/2015 Comp Metabolic Vdt748 ALT(SGPT) 18 U/L 06/08/2015 Comp Metabolic Fox820 BILI T 0.8 mg/dL 06/08/2015 Comp Metabolic Tdo992 ALBUMIN 4.4 g/dL 06/08/2015 Comp Metabolic Xlk488 TPRO 7.0 g/dL 06/08/2015 Comp Metabolic Bik658 GLOB 2.6 g/dL 06/08/2015 Comp Metabolic Kdd286 A/G Ratio 1.7 Ratio 06/08/2015 Comp Metabolic Rti923 Osmo 271 mOsmo 06/08/2015 Tsh Ord6 hTSH [...] Ord2 RDW 14.4 % 06/08/2015 LYME EIA 8101565 LYME EIA 0.24 04/25/2014 TULAREM AB [id number] TULAREM AB <1:20 04/24/2014 RMSF IFA [id number] IGG RMSF <1:16 04/24/2014 RMSF IFA [id number] IGM RMSF <1:10 04/24/2014 E CHAFF AB [id number] IGG E CHFF <1:16 04/24/2014 E CHAFF AB [id number] IGM E CHFF <1:10 04/24/2014 ICT OCCULT [id number] ICT OCCULT NEG 10/11/2013 Review of Systems System Result Effective Dates Constitutional No recent illness 12/04/2018 Constitutional No anorexia 12/04/2018 Constitutional No night sweats 12/04/2018 Constitutional No chills 12/04/2018 Constitutional No diaphoresis 12/04/2018 Constitutional No fatigue 12/04/2018 Constitutional No fever 12/04/2018 Constitutional No insomnia 12/04/2018 Constitutional No malaise 12/04/2018 Constitutional No weight loss 12/04/2018 Constitutional No weight gain 12/04/2018 Constitutional No recent illness 11/28/2018 Constitutional No chills 11/28/2018 Constitutional No diaphoresis 11/28/2018 Constitutional No fever 11/28/2018 Eyes No eye erythema 11/28/2018 Ears/Nose/Throat/Neck No nasal discharge 11/28/2018 Cardiovascular No chest pain/pressure 11/28/2018 Cardiovascular No dyspnea 11/28/2018 Respiratory No cough 11/28/2018 Respiratory No dyspnea 11/28/2018 Neurologic No alteration of consciousness 11/28/2018 Neurologic No mental status change 11/28/2018 Constitutional recent illness 10/08/2018 Constitutional No chills 10/08/2018 Constitutional No diaphoresis 10/08/2018 Constitutional No fever 10/08/2018 Constitutional No malaise 10/08/2018 Eyes No blindness 10/08/2018 Ears/Nose/Throat/Neck nasal allergies 10/08/2018 Ears/Nose/Throat/Neck nasal discharge 10/08/2018 Ears/Nose/Throat/Neck postnasal drip 10/08/2018 Ears/Nose/Throat/Neck sinus congestion 10/08/2018 Ears/Nose/Throat/Neck sore throat 10/08/2018 Cardiovascular No chest pain/pressure 10/08/2018 Cardiovascular No dyspnea 10/08/2018 Respiratory cough 10/08/2018 Respiratory No dyspnea 10/08/2018 Gastrointestinal No constipation 10/08/2018 Gastrointestinal No diarrhea 10/08/2018 Gastrointestinal No nausea 10/08/2018 Gastrointestinal No vomiting 10/08/2018 Dermatologic No rash 10/08/2018 Neurologic No alteration of consciousness 10/08/2018 Neurologic No mental status change 10/08/2018 Constitutional No anorexia 10/08/2018 Constitutional No night sweats 10/08/2018 Constitutional fatigue 10/08/2018 Constitutional No insomnia 10/08/2018 Constitutional No weight loss 10/08/2018 Constitutional No weight gain 10/08/2018 Ears/Nose/Throat/Neck headache 10/08/2018 Respiratory productive sputum 10/08/2018 Constitutional recent illness 09/11/2018 Constitutional chills 09/11/2018 Constitutional No diaphoresis 09/11/2018 Constitutional No fever 09/11/2018 Constitutional malaise 09/11/2018 Eyes No blindness 09/11/2018 Ears/Nose/Throat/Neck nasal allergies 09/11/2018 Ears/Nose/Throat/Neck nasal discharge 09/11/2018 Ears/Nose/Throat/Neck postnasal drip 09/11/2018 Ears/Nose/Throat/Neck sinus congestion 09/11/2018 Ears/Nose/Throat/Neck sore throat 09/11/2018 Cardiovascular No chest pain/pressure 09/11/2018 Cardiovascular No dyspnea 09/11/2018 Respiratory No chest congestion 09/11/2018 Respiratory cough 09/11/2018 Respiratory No dyspnea 09/11/2018 Gastrointestinal No constipation 09/11/2018 Gastrointestinal No diarrhea 09/11/2018 Gastrointestinal No nausea 09/11/2018 Gastrointestinal No vomiting 09/11/2018 Dermatologic No rash 09/11/2018 Neurologic No alteration of consciousness 09/11/2018 Neurologic No mental status change 09/11/2018 Constitutional No recent illness 07/12/2018 Constitutional No chills 07/12/2018 Constitutional No fever 07/12/2018 Eyes No eye erythema 07/12/2018 Ears/Nose/Throat/Neck No nasal discharge 07/12/2018 Cardiovascular No chest pain/pressure 07/12/2018 Cardiovascular No dyspnea 07/12/2018 Respiratory No cough 07/12/2018 Respiratory No dyspnea 07/12/2018 Musculoskeletal joint complaint 07/12/2018 Neurologic No alteration of consciousness 07/12/2018 Neurologic No mental status change 07/12/2018 Constitutional recent illness 05/07/2018 Constitutional No anorexia 05/07/2018 Constitutional No night sweats 05/07/2018 Constitutional No chills 05/07/2018 Constitutional No diaphoresis 05/07/2018 Constitutional No fatigue 05/07/2018 Constitutional No fever 05/07/2018 Constitutional No insomnia 05/07/2018 Constitutional No malaise 05/07/2018 Constitutional No weight loss 05/07/2018 Constitutional No weight gain 05/07/2018 Gastrointestinal No abdominal pain 05/07/2018 Gastrointestinal No constipation 05/07/2018 Gastrointestinal No diarrhea 05/07/2018 Genitourinary/Nephrology No dysuria 05/07/2018 Genitourinary/Nephrology No urinary urgency 05/07/2018 Genitourinary/Nephrology No urinary frequency 05/07/2018 Musculoskeletal No joint complaint 05/07/2018 Musculoskeletal No back pain 05/07/2018 Respiratory No cough 05/07/2018 Cardiovascular No chest pain/pressure 05/07/2018 Ears/Nose/Throat/Neck No dizziness 05/07/2018 Ears/Nose/Throat/Neck No headache 05/07/2018 Constitutional No recent illness 02/21/2018 Constitutional No chills 02/21/2018 Constitutional No diaphoresis 02/21/2018 Constitutional No fever 02/21/2018 Eyes No eye erythema 02/21/2018 Ears/Nose/Throat/Neck No nasal discharge 02/21/2018 Ears/Nose/Throat/Neck nasal allergies 02/21/2018 Ears/Nose/Throat/Neck No otalgia 02/21/2018 Ears/Nose/Throat/Neck postnasal drip 02/21/2018 Ears/Nose/Throat/Neck No sinus congestion 02/21/2018 Ears/Nose/Throat/Neck No sore throat 02/21/2018 Ears/Nose/Throat/Neck tinnitus 02/21/2018 Cardiovascular No chest pain/pressure 02/21/2018 Cardiovascular No dyspnea 02/21/2018 Respiratory No cough 02/21/2018 Respiratory No chest congestion 02/21/2018 Gastrointestinal No abdominal pain 02/21/2018 Gastrointestinal No vomiting 02/21/2018 Gastrointestinal No nausea 02/21/2018 Dermatologic No rash 02/21/2018 Neurologic No alteration of consciousness 02/21/2018 Neurologic No mental status change 02/21/2018 Constitutional No recent illness 11/28/2017 Constitutional No chills 11/28/2017 Constitutional No diaphoresis 11/28/2017 Constitutional No fever 11/28/2017 Eyes No blindness 11/28/2017 Ears/Nose/Throat/Neck No nasal allergies 11/28/2017 Ears/Nose/Throat/Neck No nasal discharge 11/28/2017 Cardiovascular No chest pain/pressure 11/28/2017 Cardiovascular No dyspnea 11/28/2017 Respiratory No cough 11/28/2017 Respiratory No dyspnea 11/28/2017 Gastrointestinal No constipation 11/28/2017 Gastrointestinal No diarrhea 11/28/2017 Musculoskeletal No joint complaint 11/28/2017 Neurologic No alteration of consciousness 11/28/2017 Neurologic No mental status change 11/28/2017 Constitutional insomnia 11/28/2017 Constitutional fatigue 11/28/2017 Constitutional No night sweats 11/28/2017 Constitutional No anorexia 11/28/2017 Psychiatric anxiety 11/28/2017 Constitutional recent illness 08/29/2017 Constitutional chills 08/29/2017 Constitutional No diaphoresis 08/29/2017 Constitutional No fever 08/29/2017 Eyes No eye erythema 08/29/2017 Ears/Nose/Throat/Neck nasal allergies 08/29/2017 Ears/Nose/Throat/Neck nasal discharge 08/29/2017 Ears/Nose/Throat/Neck postnasal drip 08/29/2017 Ears/Nose/Throat/Neck sinus congestion 08/29/2017 Ears/Nose/Throat/Neck sore throat 08/29/2017 Cardiovascular No chest pain/pressure 08/29/2017 Cardiovascular No dyspnea 08/29/2017 Respiratory No chest congestion 08/29/2017 Respiratory cough 08/29/2017 Respiratory No dyspnea 08/29/2017 Gastrointestinal No constipation 08/29/2017 Gastrointestinal No diarrhea 08/29/2017 Gastrointestinal No nausea 08/29/2017 Gastrointestinal No vomiting 08/29/2017 Dermatologic No rash 08/29/2017 Neurologic No alteration of consciousness 08/29/2017 Neurologic No mental status change 08/29/2017 Constitutional malaise 08/29/2017 Constitutional No recent illness 06/13/2017 Constitutional anorexia 06/13/2017 Constitutional No night sweats 06/13/2017 Constitutional No chills 06/13/2017 Constitutional No diaphoresis 06/13/2017 Constitutional No fatigue 06/13/2017 Constitutional No fever 06/13/2017 Constitutional No malaise 06/13/2017 Eyes No eye discharge 06/13/2017 Eyes No eye erythema 06/13/2017 Ears/Nose/Throat/Neck No dizziness 06/13/2017 Ears/Nose/Throat/Neck No headache 06/13/2017 Cardiovascular No chest pain/pressure 06/13/2017 Cardiovascular No dyspnea 06/13/2017 Respiratory No cough 06/13/2017 Gastrointestinal No abdominal pain 06/13/2017 Gastrointestinal No constipation 06/13/2017 Gastrointestinal No diarrhea 06/13/2017 Musculoskeletal No joint complaint 06/13/2017 Dermatologic No rash 06/13/2017 Psychiatric No suicidality 06/13/2017 Psychiatric depression 06/13/2017 Psychiatric anxiety 06/13/2017 Constitutional No recent illness 02/16/2017 Constitutional No [...] Result Effective Dates Notes Full Exam - Dermatology Constitutional general appearance Overall: well nourished 12/04/2018 None Full Exam - Dermatology Constitutional general appearance Overall: well developed 12/04/2018 None Full Exam - Dermatology Constitutional general appearance Overall: in no acute distress 12/04/2018 None Full Exam - Dermatology Constitutional general appearance Overall: of normal body habitus 12/04/2018 None Full Exam - Dermatology Constitutional general appearance Overall: well groomed 12/04/2018 None Full Exam - Dermatology Respiratory auscultation Overall: breath sounds clear bilaterally 12/04/2018 None Full Exam - Dermatology Respiratory respiratory effort/rhythm Overall: no retractions 12/04/2018 None Full Exam - Dermatology Respiratory respiratory effort/rhythm Overall: normal rate 12/04/2018 None Full Exam - Dermatology Psychiatric orientation Overall: oriented to person, place and time 12/04/2018 None Full Exam - Dermatology Integument insp & palp - right upper extremity Lesion: papule 12/04/2018 None Full Exam - Dermatology Integument insp & palp - right upper extremity Location: in the antecubital fossa 12/04/2018 None Full Exam - Dermatology Integument insp & palp - right upper extremity Color: erythematous 12/04/2018 None Full Exam - Dermatology Integument insp & palp - neck Lesion: papule 12/04/2018 None Full Exam - Dermatology Integument insp & palp - neck Location: on the left neck 12/04/2018 None Full Exam - Dermatology Integument insp & palp - neck Color: erythematous 12/04/2018 None Full Exam - General 1994 Constitutional general appearance Overall: well developed 11/28/2018 None Full Exam - General 1994 Constitutional general appearance Overall: in no acute distress 11/28/2018 None Full Exam - General 1994 Constitutional general appearance Overall: well nourished 11/28/2018 None Full Exam - General 1994 Eyes conjunctiva/eyelids Overall: conjunctiva clear 11/28/2018 None Full Exam - General 1994 Eyes conjunctiva/eyelids Overall: eyelids normal 11/28/2018 None Full Exam - General 1994 Ears/Nose/Throat lips/teeth/gingiva Overall: benign lips 11/28/2018 None Full Exam - General 1994 Respiratory respiratory effort/rhythm Overall: no retractions 11/28/2018 None Full Exam - General 1994 Respiratory respiratory effort/rhythm Overall: normal rate 11/28/2018 None Full Exam - General 1994 Musculoskeletal head and neck Overall: head atraumatic 11/28/2018 None Full Exam - General 1994 Neurologic cranial nerves Overall: crainial nerves 2 - 12 grossly intact 11/28/2018 None Full Exam - General 1994 Psychiatric orientation/consciousness Overall: oriented to person, place and time 11/28/2018 None Full Exam - General 1994 Psychiatric mood and affect Overall: normal mood and affect 11/28/2018 None Full Exam - General 1994 Psychiatric appearance Overall: well-groomed, good eye contact 11/28/2018 None Full Exam - ENT Constitutional general appearance Overall: well nourished 10/08/2018 None Full Exam - ENT Constitutional general appearance Overall: well developed 10/08/2018 None Full Exam - ENT Constitutional general appearance Overall: in no acute distress 10/08/2018 None Full Exam - ENT Ears/Nose/Throat otoscopic exam Overall: external auditory canals normal 10/08/2018 None Full Exam - ENT Ears/Nose/Throat otoscopic exam Left tympanic membrane: air-fluid level 10/08/2018 None Full Exam - ENT Ears/Nose/Throat otoscopic exam Right tympanic membrane: air-fluid level 10/08/2018 None Full Exam - ENT Ears/Nose/Throat lips/teeth/gingiva Overall: benign lips 10/08/2018 None Full Exam - ENT Ears/Nose/Throat oropharynx Overall: oral mucosa clear 10/08/2018 None Full Exam - ENT Ears/Nose/Throat oropharynx Posterior Pharynx: clear post nasal drainage 10/08/2018 None Full Exam - ENT Ears/Nose/Throat oropharynx Posterior Pharynx: erythema 10/08/2018 None Full Exam - ENT Respiratory inspection Overall: no retractions 10/08/2018 None Full Exam - ENT Respiratory inspection Overall: normal rate 10/08/2018 None Full Exam - ENT Respiratory auscultation Overall: breath sounds clear bilaterally 10/08/2018 None Full Exam - ENT Cardiovascular auscultation of heart Rate: normal rate 10/08/2018 None Full Exam - ENT Cardiovascular auscultation of heart Rhythm: regular rhythm 10/08/2018 None Full Exam - ENT Lymphatic palpation of lymph nodes Overall: anterior cervical chain benign 10/08/2018 None Full Exam - ENT Lymphatic palpation of lymph nodes Overall: posterior cervical chain benign 10/08/2018 None Full Exam - ENT Neurologic mood and affect Overall: normal mood 10/08/2018 None Full Exam - ENT Neurologic mood and affect Overall: normal affect 10/08/2018 None Full Exam - ENT Neurologic orientation Overall: oriented to person, place and time 10/08/2018 None Full Exam - ENT Integument inspection of skin Overall: no rash, lesions 10/08/2018 None Full Exam - ENT Face and Head palpation Overall: no sinus tenderness 10/08/2018 None Full Exam - ENT Constitutional general appearance Overall: well nourished 09/11/2018 None Full Exam - ENT Constitutional general appearance Overall: well developed 09/11/2018 None Full Exam - ENT Constitutional general appearance Overall: in no acute distress 09/11/2018 None Full Exam - ENT Ears/Nose/Throat otoscopic exam Overall: external auditory canals normal 09/11/2018 None Full Exam - ENT Ears/Nose/Throat otoscopic exam Left tympanic membrane: air-fluid level 09/11/2018 None Full Exam - ENT Ears/Nose/Throat otoscopic exam Right tympanic membrane: air-fluid level 09/11/2018 None Full Exam - ENT Ears/Nose/Throat lips/teeth/gingiva Overall: benign lips 09/11/2018 None Full Exam - ENT Ears/Nose/Throat oropharynx Overall: oral mucosa clear 09/11/2018 None Full Exam - ENT Ears/Nose/Throat oropharynx Posterior Pharynx: clear post nasal drainage 09/11/2018 None Full Exam - ENT Ears/Nose/Throat oropharynx Posterior Pharynx: erythema 09/11/2018 None Full Exam - ENT Respiratory inspection Overall: no retractions 09/11/2018 None Full Exam - ENT Respiratory inspection Overall: normal rate 09/11/2018 None Full Exam - ENT Respiratory auscultation Overall: breath sounds clear bilaterally 09/11/2018 None Full Exam - ENT Cardiovascular auscultation of heart Rate: normal rate 09/11/2018 None Full Exam - ENT Cardiovascular auscultation of heart Rhythm: regular rhythm 09/11/2018 None Full Exam - ENT Lymphatic palpation of lymph nodes Overall: anterior cervical chain benign 09/11/2018 None Full Exam - ENT Lymphatic palpation of lymph nodes Overall: posterior cervical chain benign 09/11/2018 None Full Exam - ENT Neurologic mood and affect Overall: normal mood 09/11/2018 None Full Exam - ENT Neurologic mood and affect Overall: normal affect 09/11/2018 None Full Exam - ENT Neurologic orientation Overall: oriented to person, place and time 09/11/2018 None Full Exam - ENT Face and Head palpation Left maxillary sinus: tender 09/11/2018 None Full Exam - ENT Face and Head palpation Right maxillary sinus: tender 09/11/2018 None Full Exam - Orthopedics Constitutional general appearance Overall: well nourished 07/12/2018 None Full Exam - Orthopedics Constitutional general appearance Overall: well developed 07/12/2018 None Full Exam - Orthopedics Constitutional general appearance Overall: in no acute distress 07/12/2018 None Full Exam - Orthopedics Eyes conjunctiva/eyelids Overall: conjunctiva clear 07/12/2018 None Full Exam - Orthopedics Eyes conjunctiva/eyelids Overall: eyelids normal 07/12/2018 None Full Exam - Orthopedics Ears/Nose/Throat lips/teeth/gingiva Overall: benign lips 07/12/2018 None Full Exam - Orthopedics Ears/Nose/Throat oral cavity/pharynx/larynx Overall: oral mucosa clear 07/12/2018 None Full Exam - Orthopedics Respiratory respiratory effort/rhythm Overall: no retractions 07/12/2018 None Full Exam - Orthopedics Respiratory respiratory effort/rhythm Overall: normal rate 07/12/2018 None Full Exam - Orthopedics Psychiatric orientation/consciousness Overall: oriented to person, place and time 07/12/2018 None Full Exam - Orthopedics Psychiatric mood and affect Overall: normal mood and affect 07/12/2018 None Full Exam - Orthopedics Psychiatric appearance Overall: well-groomed, good eye contact 07/12/2018 None Full Exam - Orthopedics MS: right upper extremity insp & palp - RUE Metacarpals: swelling 07/12/2018 None Full Exam - Orthopedics MS: right upper extremity insp & palp - RUE Metacarpals: bruising 07/12/2018 None Full Exam - Orthopedics MS: right upper extremity insp & palp - RUE Metacarpals: tender over the first metacarpal 07/12/2018 None Full Exam - Orthopedics MS: right upper extremity insp & palp - RUE Metacarpals: tender over the second metacarpal 07/12/2018 None Full Exam - Orthopedics MS: right upper extremity range of motion - RUE Wrist: pain with radial bending 07/12/2018 None Full Exam - General 1994 Constitutional general appearance Overall: well developed 05/07/2018 None Full Exam - General 1994 Constitutional general appearance Overall: in no acute distress 05/07/2018 None Full Exam - General 1994 Constitutional general appearance Overall: well nourished 05/07/2018 None Full Exam - General 1994 Eyes conjunctiva/eyelids Overall: conjunctiva clear 05/07/2018 None Full Exam - General 1994 Eyes conjunctiva/eyelids Overall: eyelids normal 05/07/2018 None Full Exam - General 1994 Eyes pupils and irises Overall: pupils equal, round, reactive to light and accomodation 05/07/2018 None Full Exam - General 1994 Ears/Nose/Throat lips/teeth/gingiva Overall: benign lips 05/07/2018 None Full Exam - General 1994 Ears/Nose/Throat oral cavity/pharynx/larynx Overall: oral mucosa clear 05/07/2018 None Full Exam - General 1994 Respiratory auscultation Overall: breath sounds clear bilaterally 05/07/2018 None Full Exam - General 1994 Respiratory respiratory effort/rhythm Overall: no retractions 05/07/2018 None Full Exam - General 1994 Respiratory respiratory effort/rhythm Overall: normal rate 05/07/2018 None Full Exam - General 1994 Cardiovascular extremities Overall: no clubbing 05/07/2018 None Full Exam - General 1994 Cardiovascular auscultation of heart Overall: regular rate 05/07/2018 None Full Exam - General 1994 Cardiovascular auscultation of heart Overall: normal heart sounds 05/07/2018 None Full Exam - General 1994 Musculoskeletal head and neck Overall: head atraumatic 05/07/2018 None Full Exam - General 1994 Psychiatric orientation/consciousness Overall: oriented to person, place and time 05/07/2018 None Full Exam - General 1994 Psychiatric mood and affect Overall: normal mood and affect 05/07/2018 None Full Exam - General 1994 Psychiatric appearance Overall: well-groomed, good eye contact 05/07/2018 None Full Exam - General 1994 Abdomen abdominal exam Overall: no tenderness 05/07/2018 None Full Exam - General 1994 Abdomen abdominal exam Overall: normal bowel sounds 05/07/2018 None Full Exam - ENT Constitutional general appearance Overall: well nourished 02/21/2018 None Full Exam - ENT Constitutional general appearance Overall: well developed 02/21/2018 None Full Exam - ENT Constitutional general appearance Overall: in no acute distress 02/21/2018 None Full Exam - ENT Eyes ocular motility Overall: extraocular movement intact 02/21/2018 None Full Exam - ENT Eyes ocular motility Overall: normal gaze alignment 02/21/2018 None Full Exam - ENT Ears/Nose/Throat otoscopic exam Overall: external auditory canals normal 02/21/2018 None Full Exam - ENT Ears/Nose/Throat otoscopic exam Left tympanic membrane: retracted 02/21/2018 None Full Exam - ENT Ears/Nose/Throat otoscopic exam Right tympanic membrane: intact 02/21/2018 None Full Exam - ENT Ears/Nose/Throat otoscopic exam Right tympanic membrane: mobile 02/21/2018 None Full Exam - ENT Ears/Nose/Throat lips/teeth/gingiva Overall: benign lips 02/21/2018 None Full Exam - ENT Ears/Nose/Throat oropharynx Overall: oral mucosa clear 02/21/2018 None Full Exam - ENT Respiratory inspection Overall: normal rate 02/21/2018 None Full Exam - ENT Respiratory inspection Overall: no retractions 02/21/2018 None Full Exam - ENT Respiratory auscultation Overall: breath sounds clear bilaterally 02/21/2018 None Full Exam - ENT Cardiovascular auscultation of heart Overall: regular rate 02/21/2018 None Full Exam - ENT Cardiovascular auscultation of heart Overall: normal heart sounds 02/21/2018 None Full Exam - ENT Musculoskeletal head and neck Overall: head atraumatic 02/21/2018 None Full Exam - ENT Musculoskeletal gait and station Overall: normal station 02/21/2018 None Full Exam - ENT Musculoskeletal gait and station Overall: normal gait 02/21/2018 None Full Exam - ENT Neurologic mood and affect Overall: normal mood 02/21/2018 None Full Exam - ENT Neurologic mood and affect Overall: normal affect 02/21/2018 None Full Exam - ENT Neurologic orientation Overall: oriented to person, place and time 02/21/2018 None Full Exam - ENT Neurologic cranial nerves/coordination Overall: cranial nerves 2-12 grossly intact 02/21/2018 None Full Exam - ENT Ears/Nose/Throat external ear and nose Overall: normal appearance 02/21/2018 None Full Exam - ENT Ears/Nose/Throat external ear and nose Overall: no masses 02/21/2018 None Full Exam - ENT Ears/Nose/Throat external ear and nose Overall: normal mastoids 02/21/2018 None Full Exam - ENT Ears/Nose/Throat hearing assessment Will: lateralizes to right 02/21/2018 None Full Exam - ENT Ears/Nose/Throat hearing assessment Left Rinne: normal (positive) 02/21/2018 None Full Exam - ENT Ears/Nose/Throat hearing assessment Right Rinne: normal (positive) 02/21/2018 None Full Exam - General [facility] Constitutional general appearance Overall: well developed 11/28/2017 None Full Exam - General 1994 Constitutional general appearance Overall: in no acute distress 11/28/2017 None Full Exam - General 1994 Constitutional general appearance Overall: well nourished 11/28/2017 None Full Exam - General 1994 Eyes conjunctiva/eyelids Overall: conjunctiva clear 11/28/2017 None Full Exam - General 1994 Eyes conjunctiva/eyelids Overall: eyelids normal 11/28/2017 None Full Exam - General 1994 Eyes pupils and irises Overall: pupils equal, round, reactive to light and accomodation 11/28/2017 None Full Exam - General 1994 Ears/Nose/Throat lips/teeth/gingiva Overall: benign lips 11/28/2017 None Full Exam - General 1994 Ears/Nose/Throat oral cavity/pharynx/larynx Overall: oral mucosa clear 11/28/2017 None Full Exam - General 1994 Respiratory auscultation Overall: breath sounds clear bilaterally 11/28/2017 None Full Exam - General 1994 Respiratory respiratory effort/rhythm Overall: no retractions 11/28/2017 None Full Exam - General 1994 Respiratory respiratory effort/rhythm Overall: normal rate 11/28/2017 None Full Exam - General 1994 Cardiovascular extremities Overall: no clubbing 11/28/2017 None Full Exam - General 1994 Cardiovascular auscultation of heart Overall: regular rate 11/28/2017 None Full Exam - General 1994 Cardiovascular auscultation of heart Overall: normal heart sounds 11/28/2017 None Full Exam - General 1994 Musculoskeletal head and neck Overall: head atraumatic 11/28/2017 None Full Exam - General 1994 Psychiatric orientation/consciousness Overall: oriented to person, place and time 11/28/2017 None Full Exam - General 1994 Psychiatric mood and affect Overall: normal mood and affect 11/28/2017 None Full Exam - General 1994 Psychiatric appearance Overall: well-groomed, good eye contact 11/28/2017 None Full Exam - ENT Constitutional general appearance Overall: well nourished 08/29/2017 None Full Exam - ENT Constitutional general appearance Overall: well developed 08/29/2017 None Full Exam - ENT Constitutional general appearance Overall: in no acute distress 08/29/2017 None Full Exam - ENT Ears/Nose/Throat otoscopic exam Overall: external auditory canals normal 08/29/2017 None Full Exam - ENT Ears/Nose/Throat otoscopic exam Left tympanic membrane: air-fluid level 08/29/2017 None Full Exam - ENT Ears/Nose/Throat otoscopic exam Right tympanic membrane: air-fluid level 08/29/2017 None Full Exam - ENT Ears/Nose/Throat lips/teeth/gingiva Overall: benign lips 08/29/2017 None Full Exam - ENT Ears/Nose/Throat oropharynx Overall: oral mucosa clear 08/29/2017 None Full Exam - ENT Ears/Nose/Throat oropharynx Posterior Pharynx: clear post nasal drainage 08/29/2017 None Full Exam - ENT Ears/Nose/Throat oropharynx Posterior Pharynx: erythema 08/29/2017 None Full Exam - ENT Respiratory inspection Overall: no retractions 08/29/2017 None Full Exam - ENT Respiratory inspection Overall: normal rate 08/29/2017 None Full Exam - ENT Respiratory auscultation Overall: breath sounds clear bilaterally 08/29/2017 None Full Exam - ENT Cardiovascular auscultation of heart Rate: normal rate 08/29/2017 None Full Exam - ENT Cardiovascular auscultation of heart Rhythm: regular rhythm 08/29/2017 None Full Exam - ENT Lymphatic palpation of lymph nodes Overall: anterior cervical chain benign 08/29/2017 None Full Exam - ENT Lymphatic palpation of lymph nodes Overall: posterior cervical chain benign 08/29/2017 None Full Exam - ENT Neurologic mood and affect Overall: normal mood 08/29/2017 None Full Exam - ENT Neurologic mood and affect Overall: normal affect 08/29/2017 None Full Exam - ENT Neurologic orientation Overall: oriented to person, place and time 08/29/2017 None Full Exam - General 1994 Constitutional general appearance Overall: well developed 06/13/2017 None Full Exam - General 1994 Constitutional general appearance Overall: in no acute distress 06/13/2017 None Full Exam - General 1994 Constitutional general appearance Overall: well nourished 06/13/2017 None Full Exam - General 1994 Constitutional general appearance Evidence of Distress: tearful 06/13/2017 None Full Exam - General 1994 Eyes pupils and irises Overall: pupils equal, round, reactive to light and accomodation 06/13/2017 None Full Exam - General 1994 Ears/Nose/Throat oral cavity/pharynx/larynx Overall: oral mucosa clear 06/13/2017 None Full Exam - General 1994 Ears/Nose/Throat oral cavity/pharynx/larynx Overall: oropharyngeal mucosa clear 06/13/2017 None Full Exam - General 1994 Ears/Nose/Throat oral cavity/pharynx/larynx Overall: no masses 06/13/2017 None Full Exam - General 1994 Respiratory auscultation Overall: breath sounds clear bilaterally 06/13/2017 None Full Exam - General 1994 Respiratory respiratory effort/rhythm Overall: no retractions 06/13/2017 None Full Exam - General 1994 Respiratory respiratory effort/rhythm Overall: normal rate 06/13/2017 None Full Exam - General 1994 Cardiovascular extremities Overall: no clubbing 06/13/2017 None Full Exam - General 1994 Cardiovascular auscultation of heart Overall: regular rate 06/13/2017 None Full Exam - General 1994 Cardiovascular auscultation of heart Overall: normal heart sounds 06/13/2017 None Full Exam - General 1994 Psychiatric orientation/consciousness Overall: oriented to person, place and time 06/13/2017 None Full Exam - General 1994 Psychiatric mood and affect Mood: depressed 06/13/2017 None Full Exam - General 1994 Abdomen abdominal exam Overall: no tenderness 06/13/2017 None Full Exam - General 1994 Abdomen abdominal exam Overall: normal bowel sounds 06/13/2017 None Full Exam - General 1994 Lymphatic neck nodes Overall: anterior cervical chain benign 06/13/2017 None Full Exam - General 1994 Lymphatic neck nodes Overall: posterior cervical chain benign 06/13/2017 None Full Exam - General 1994 Integument inspection of skin Overall: no rash, lesions 06/13/2017 None Full Exam - General 1994 Constitutional [...] accomodation 02/06/2017 None Full Exam - General 1995 [...] clear 05/16/2014 None Full Exam - General 1995 Ears/Nose/Throat otoscopic exam Overall: tympanic membranes clear 05/16/2014 None Full Exam - General 1995 Ears/Nose/Throat oral cavity/pharynx/larynx Overall: oral mucosa clear 05/16/2014 None Full Exam - General 1995 Ears/Nose/Throat [...] tenderness 10/15/2013 None Full Exam - General 1995 Abdomen [...] tenderness 10/15/2013 None Full Exam - General 1995 Genitourinary urethra Inspection: non-tender 10/15/2013 erythema Full Exam - General 1994 Genitourinary adnexa/parametria Overall: surgically absent 10/15/2013 None Full Exam - General 1995 Genitourinary labia and vagina Overall: normal hair distribution 10/15/2013 None Full Exam - General 1995 Genitourinary labia and vagina Overall: no lesions [...] General 1995 Ears/Nose/Throat lips/teeth/gingiva Overall: benign lips 09/30/2013 None Full Exam - General 1995 Ears/Nose/Throat lips/teeth/gingiva Overall: normal dentition 09/30/2013 None [...] intact 03/13/2013 None Full Exam - General 1995 Psychiatric orientation/consciousness Overall: oriented to person, place [...] affect 03/13/2013 None Full Exam - General 1995 Constitutional general appearance Overall: well nourished 10/04/2012 None Full Exam - General 1995 Constitutional general appearance Overall: well developed 10/04/2012 None Full Exam - General 1994 Constitutional general appearance Overall: in no acute distress 10/04/2012 None Full Exam - General 1995 Eyes [...] contact 08/22/2011 None Full Exam - General 1995 Cardiovascular auscultation of heart Overall: regular rate 08/22/2011 None Full Exam - General 1995 Cardiovascular [...] retractions 08/22/2011 None Full Exam - General 1995 Constitutional general appearance Development: well developed 08/22/2011 [...] Procedures Procedure Codes Date PPPS, SUBSEQ VISIT CPT- 4: G0439 11/28/2018 TRIAMCINOLONE ACET INJ NOS CPT-4: J3301 10/08/2018 TRIAMCINOLONE ACET INJ NOS CPT-4: J3301 09/11/2018 URINALYSIS NONAUTO W/O SCOPE CPT-4: 07687 05/07/2018 ADMIN INFLUENZA VIRUS VAC CPT-4: G0008 04/24/2018 FLU VACC PRSV FREE INC ANTIG CPT-4: 24553 04/24/2018 PPPS, SUBSEQ VISIT CPT- 4: G0439 11/28/2017 ADMIN INFLUENZA VIRUS VAC CPT-4: G0008 06/07/2017 FLU VACC PRSV FREE INC ANTIG CPT-4: 71733 06/07/2017 PPPS, SUBSEQ VISIT CPT- 4: G0439 11/17/2016 TRIAMCINOLONE ACET INJ NOS CPT-4: J3301 09/05/2016 PPPS, SUBSEQ VISIT CPT- 4: G0439 11/13/2015 PNEUMOCOCCAL VACC 13 STEPHANIE IM Formatting Model/CDA Sections, Assigned to/Lila Colon CT: [id number] CPT-4: 75506Lcintch 11/13/2015 ADMIN PNEUMOCOCCAL VACCINE SNOMED CT: 01090376 CPT-4: G0009 11/13/2015 ROCEPHIN, PER 250 MG CPT- 4: J0696 07/23/2015 URINALYSIS NONAUTO W/O SCOPE CPT-4: 82198 10/10/2014 ROUTINE VENIPUNCTURE CPT- 4: 45918 04/23/2014 Pneumococcal Polysaccharide Vaccine, 23-Valent, Ad CPT-4: 74474 04/15/2014 ADMIN INFLUENZA VIRUS VAC CPT-4: G0008 04/15/2014 FLU VAC NO PRSV 4 STEPHANIE 3 YRS+ CPT-4: 35259 04/15/2014 ADMIN PNEUMOCOCCAL VACCINE SNOMED CT: [id number] CPT-4: G0009 04/15/2014 THER/PROPH/DIAG INJ SC/IM CPT-4: 88307 02/11/2014 TRIAMCINOLONE ACET INJ NOS CPT-4: J3301 02/11/2014 TRIAMCINOLONE ACET INJ NOS CPT-4: J3301 01/21/2014 INITIAL PREVENTIVE EXAM CPT-4: G0402 09/30/2013 PRESCRIP TRANSMIT VIA ERX SY CPT-4: G8553 03/13/2013 Vital Signs Date Vital 12/04/2018 Blood Pressure 1: 130/78 Code: 8480-6 BMI: 28.1 Code: 14856-1 Heart Rate 1: 80 bpm Height: 5'5" SpO2: 97% Weight: 169 lbs 11/28/2018 Blood Pressure 1: 132/74 Code: 8480-6 BMI: 28.1 Code: 58330-7 Heart Rate 1: 73 bpm Height: 5'5" SpO2: 94% Waist Measure (cm): 97 cm Weight: 169 lbs 10/08/2018 Blood Pressure 1: 140/82 Code: 8480-6 Heart Rate 1: 80 bpm Height: 5'5" SpO2: 95% Temperature: 37.0 (C) / 98.6 (F) Weight: 09/11/2018 Blood Pressure 1: 114/76 Code: 8480-6 BMI: 29.3 Code: 33294-9 Heart Rate 1: 80 bpm Height: 5'5" SpO2: 95% Temperature: 36.3 (C) / 97.3 (F) Weight: 176 lbs 07/12/2018 Blood Pressure 1: 126/76 Code: 8480-6 BMI: 29.3 Code: 60977-1 Heart Rate 1: 70 bpm Height: 5'5" SpO2: 96% Weight: 176 lbs 05/07/2018 Blood Pressure 1: 118/72 Code: 8480-6 BMI: 29.5 Code: 56556-6 Heart Rate 1: 71 bpm Height: 5'5" SpO2: 98% Weight: 177 lbs 02/21/2018 Blood Pressure 1: 120/78 Code: 8480-6 BMI: 29.0 Code: 63436-3 Heart Rate 1: 68 bpm Height: 5'5" SpO2: 96% Weight: 174 lbs 11/28/2017 Blood Pressure 1: 122/98 Code: 8480-6 BMI: 31.0 Code: 80681-0 Heart Rate 1: 89 bpm Height: 5'5" SpO2: 98% Waist Measure (cm): 91 cm Weight: 186 lbs 08/29/2017 Blood Pressure 1: 146/80 Code: 8480-6 BMI: 29.5 Code: 36989-0 Heart Rate 1: 68 bpm Height: 5'5" SpO2: 98% Temperature: 36.6 (C) / 97.8 (F) Weight: 177 lbs 06/13/2017 Blood Pressure 1: 138/76 Code: 8480-6 BMI: 29.6 Code: 46724-0 Heart Rate 1: 63 bpm Height: 5'5" SpO2: 95% Weight: 178 lbs 02/16/2017 Blood Pressure 1: 128/80 Code: 8480-6 BMI: 29.9 Code: 80860-5 Heart Rate 1: 77 bpm Height: 5'5" SpO2: 96% Weight: 179 lbs 8 oz 02/06/2017 Blood Pressure 1: 140/80 Code: 8480-6 BMI: 29.8 Code: 02729-1 Heart Rate 1: 72 bpm Height: 5'5" SpO2: 97% Weight: 179 lbs 11/17/2016 Blood Pressure 1: 130/72 Code: 8480-6 BMI: 29.6 Code: 47111-4 Heart Rate 1: 62 bpm Height: 5'5" SpO2: 98% Waist Measure (cm): 91 cm Weight: 178 lbs 10/12/2016 Blood Pressure 1: 128/78 Code: 8480-6 BMI: 28.5 Code: 17264-3 Heart Rate 1: 62 bpm Height: 5'5" SpO2: 97% Weight: 171 lbs 09/05/2016 Blood Pressure 1: 122/70 Code: 8480-6 BMI: 28.0 Code: 94560-4 Heart Rate 1: 65 bpm Height: 5'5" SpO2: 94% Weight: 168 lbs 06/21/2016 Blood Pressure 1: 120/82 Code: 8480-6 BMI: 28.3 Code: 20666-3 Heart Rate 1: 65 bpm Height: 5'5" SpO2: 97% Weight: 170 lbs 05/24/2016 Blood Pressure 1: 136/80 Code: 8480-6 BMI: 28.1 Code: 91757-6 Heart Rate 1: 71 bpm Height: 5'5" SpO2: 96% Weight: 169 lbs 05/10/2016 Blood Pressure 1: 120/82 Code: 8480-6 BMI: 27.6 Code: 86254-0 Heart Rate 1: 86 bpm Height: 5'5" SpO2: 95% Weight: 166 lbs 05/03/2016 Blood Pressure 1: 124/78 Code: 8480-6 BMI: 28.1 Code: 26672-3 Heart Rate 1: 88 bpm Height: 5'5" SpO2: 97% Weight: 169 lbs 11/13/2015 Blood Pressure 1: 130/60 Code: 8480-6 BMI: 30.0 Code: 23785-8 Heart Rate 1: 7 bpm Height: 5'5" Waist Measure (cm): 97 cm Weight: 180 lbs 07/23/2015 Blood Pressure 1: 124/70 Code: 8480-6 BMI: 29.6 Code: 44847-1 Heart Rate 1: 74 bpm Height: 5'5" SpO2: 96% Temperature: 36.7 (C) / 98.1 (F) Weight: 178 lbs 07/06/2015 Blood Pressure 1: 138/78 Code: 8480-6 BMI: 29.6 Code: 29657-3 Heart Rate 1: 84 bpm Height: 5'5" SpO2: 96% Weight: 178 lbs 05/26/2015 Blood Pressure 1: 122/80 Code: 8480-6 BMI: 29.6 Code: 07494-4 Heart Rate 1: 84 bpm Height: 5'5" Weight: 178 lbs 02/16/2015 Blood Pressure 1: 124/82 Code: 8480-6 BMI: 29.0 Code: 72760-0 Heart Rate 1: 68 bpm Height: 5'5" Weight: 174 lbs 12/10/2014 Blood Pressure 1: 112/64 Code: 8480-6 BMI: 28.6 Code: 83810-9 Heart Rate 1: 80 bpm Height: 5'5" Weight: 172 lbs 10/16/2014 Blood Pressure 1: 128/84 Code: 8480-6 Heart Rate 1: 64 bpm Weight: 172 lbs 10/09/2014 Blood Pressure 1: 136/90 Code: 8480-6 BMI: 28.6 Code: 03426-5 Heart Rate 1: 76 bpm Height: 5'5" Weight: 172 lbs 08/26/2014 Blood Pressure 1: 118/72 Code: 8480-6 BMI: 29.0 Code: 78175-5 Heart Rate 1: 76 bpm Height: 5'5" Weight: 174 lbs 05/16/2014 Blood Pressure 1: 110/72 Code: 8480-6 BMI: 29.0 Code: 40852-7 Height: 5'5" Weight: 174 lbs 04/23/2014 Blood Pressure 1: 124/70 Code: 8480-6 BMI: 29.0 Code: 68875-0 Heart Rate 1: 72 bpm Height: 5'5" Weight: 174 lbs 04/15/2014 Temperature: 36.5 (C) / 97.7 (F) 01/21/2014 Blood Pressure 1: 98/62 Code: 8480-6 BMI: 29.0 Code: 74314- 5 Heart Rate 1: 84 bpm Height: 5'5" Temperature: 37.1 (C) / 98.7 (F) Weight: 174 lbs 12/05/2013 Blood Pressure 1: 138/88 Code: 8480-6 BMI: 29.0 Code: 97116-1 Heart Rate 1: 60 bpm Height: 5'5" Weight: 174 lbs 11/05/2013 Blood Pressure 1: 118/80 Code: 8480-6 BMI: 28.8 Code: 87590-3 Heart Rate 1: 76 bpm Height: 5'5" Weight: 173 lbs 10/15/2013 Blood Pressure 1: 120/78 Code: 8480-6 BMI: 29.1 Code: 32731-0 Heart Rate 1: 88 bpm Height: 5'5" Weight: 175 lbs 09/30/2013 Blood Pressure 1: 112/84 Code: 8480-6 BMI: 29.1 Code: 85817-7 Heart Rate 1: 68 bpm Height: 5'5" Weight: 175 lbs 03/13/2013 Blood Pressure 1: 112/84 Code: 8480-6 BMI: 28.6 Code: 04653-1 Heart Rate 1: 64 bpm Height: 5'5" Weight: 173 lbs 10/04/2012 Blood Pressure 1: 120/72 Code: 8480-6 BMI: 28.0 Code: 72830-1 Heart Rate 1: 64 bpm Height: 5'5" Weight: 169 lbs 08/22/2011 Blood Pressure 1: 134/84 Code: 8480-6 BMI: 27.5 Code: 11424-1 Heart Rate 1: 68 bpm Height: 5'5" Respiratory Rate: 16 bpm Weight: 166 lbs 8 oz 06/17/2011 Blood Pressure 1: 120/76 Code: 8480-6 BMI: 27.0 Code: 89244-9 Heart Rate 1: 58 bpm Height: 5'5" Respiratory Rate: 16 bpm Weight: 163 lbs Functional Status No Functional Status data History of Present Illness Symptom Name Status Result Effective Date Notes Location on both arms 12/04/2018 None Quality acute 12/04/2018 None Onset and Resolution ongoing 12/04/2018 None Onset of Symptom _ weeks ago 12/04/2018 None Limitation on Activities does not limit activities 12/04/2018 None Triggers outdoor exposure 12/04/2018 None Pertinent Findings erythema 12/04/2018 None Alcohol Use drinks 1 days per week 11/28/2018 None Depression (last 6 months) some of the time 11/28/2018 None Depression or Hopelessness almost never 11/28/2018 None Describe Your Health good 11/28/2018 None Exercise Habits does not exercise 11/28/2018 None Handling Stress usually breanna effectively 11/28/2018 None Interaction with Friends yes 11/28/2018 None Interests & Pleasure most of the time 11/28/2018 None Life Satisfaction satisfied 11/28/2018 None Motor Vehicle Safety always fastens seat belt: y 11/28/2018 None Motor Vehicle Safety drives after drinking: n 11/28/2018 None Motor Vehicle Safety rides with someone who has been drinking: n 11/28/2018 None Smoking and Tobacco Use cigar smoker 11/28/2018 None Social & Emotional Support sometimes 11/28/2018 None Stress some of the time 11/28/2018 None Sun Exposure protects skin when outdoors: y 11/28/2018 None Nutrition servings of fried food / high fat foods per day: 0 11/28/2018 None Nutrition servings of high fiber / whole grain per day: 2 11/28/2018 None Nutrition servings of vegetables / fruit per day: 3 11/28/2018 None Hours of Sleep 5 11/28/2018 None Hemaglobin A-1C (self reported) don't know 11/28/2018 None Cholesterol (self reported) desireable (below 200) 11/28/2018 None Blood Pressure (self reported) low / normal (120/80) 11/28/2018 None Blood Glucose (self reported) don't know 11/28/2018 None Aspirin Use no 11/28/2018 None Location in the throat 10/08/2018 None Quality constant 10/08/2018 None Quality dry 10/08/2018 None Onset and Resolution sudden in onset 10/08/2018 None Onset of Symptom 3 days ago 10/08/2018 None Onset and Resolution sudden in onset 10/08/2018 None Onset of Symptom 3 days ago 10/08/2018 None Pertinent Findings cough 10/08/2018 None Pertinent Findings decreased energy level 10/08/2018 None Location on both sides 10/08/2018 None Quality constant 10/08/2018 None Quality fullness 10/08/2018 None Quality pressure 10/08/2018 None Limitation on Activities does not limit activities 10/08/2018 None Frequency of Episodes increasing 10/08/2018 None Triggers no known associated factors 10/08/2018 None Pertinent Findings Denies fever 10/08/2018 None Quality acute 09/11/2018 None Quality intermittent 09/11/2018 None Quality productive 09/11/2018 None Onset and Resolution sudden in onset 09/11/2018 None Onset of Symptom 1 weeks ago 09/11/2018 None Pertinent Findings sputum production 09/11/2018 -darker yellow Pertinent Findings post nasal drip 09/11/2018 None Pertinent Findings chills 09/11/2018 off and on Pertinent Findings fever 09/11/2018 off and on Pertinent Findings nasal congestion 09/11/2018 None Pertinent Findings hoarseness 09/11/2018 None Limitation on Activities does not limit activities 09/11/2018 None Frequency of Episodes unchanged 09/11/2018 None Triggers no known associated factors 09/11/2018 None Location around the right index fingernail 07/12/2018 None Onset of Symptom 2 weeks ago 07/12/2018 None Pertinent Findings pain with movement 07/12/2018 None Pertinent Findings stiffness 07/12/2018 None Pertinent Findings swelling 07/12/2018 None dysuria Quality intermittent 05/07/2018 None dysuria Onset of Symptom 5 days ago 05/07/2018 None dysuria Frequency of Episodes daily 05/07/2018 None dysuria Pertinent Findings Denies back pain 05/07/2018 None dysuria Pertinent Findings Denies bladder pain 05/07/2018 None dysuria Pertinent Findings Denies pelvic pain 05/07/2018 None tinnitus Location diffusely 02/21/2018 None tinnitus Quality buzzing 02/21/2018 None tinnitus Onset and Resolution gradual in onset 02/21/2018 None tinnitus Onset and Resolution ongoing 02/21/2018 None tinnitus Onset of Symptom _ months ago 02/21/2018 None tinnitus Limitation on Activities does not limit activities 02/21/2018 None tinnitus Frequency of Episodes daily 02/21/2018 None tinnitus Pertinent Findings Denies cough 02/21/2018 None Annual Medicare Wellness Exam Alcohol Use drinks 1 days per week 11/28/2017 None Annual Medicare Wellness Exam Alcohol Use drinks 5 drinks per day 11/28/2017 None Annual Medicare Wellness Exam Aspirin Use no 11/28/2017 None Annual Medicare Wellness Exam Blood Glucose (self reported) desireable (below 100) 11/28/2017 None Annual Medicare Wellness Exam Blood Pressure (self reported) low / normal (120/80) 11/28/2017 None Annual Medicare Wellness Exam Cholesterol (self reported) don't know 11/28/2017 None Annual Medicare Wellness Exam Depression (last 6 months) most of the time 11/28/2017 None Annual Medicare Wellness Exam Depression or Hopelessness almost never 11/28/2017 None Annual Medicare Wellness Exam Describe Your Health good 11/28/2017 None Annual Medicare Wellness Exam Exercise Habits exercises 7 days per week 11/28/2017 None Annual Medicare Wellness Exam Exercise Habits exercises 60 minutes per day 11/28/2017 None Annual Medicare Wellness Exam Handling Stress often has problems coping 11/28/2017 None Annual Medicare Wellness Exam Hemaglobin A-1C (self reported) don't know 11/28/2017 None Annual Medicare Wellness Exam Hours of Sleep 5 11/28/2017 None Annual Medicare Wellness Exam Interaction with Friends yes 11/28/2017 None Annual Medicare Wellness Exam Interests & Pleasure some of the time 11/28/2017 None Annual Medicare Wellness Exam Life Satisfaction satisfied 11/28/2017 None Annual Medicare Wellness Exam Motor Vehicle Safety always fastens seat belt: y 11/28/2017 None Annual Medicare Wellness Exam Motor Vehicle Safety drives after drinking: n 11/28/2017 None Annual Medicare Wellness Exam Motor Vehicle Safety rides with someone who has been drinking: n 11/28/2017 None Annual Medicare Wellness Exam Nutrition servings of fried food / high fat foods per day: 0 11/28/2017 None Annual Medicare Wellness Exam Nutrition servings of high fiber / whole grain per day: 3 11/28/2017 None Annual Medicare Wellness Exam Nutrition servings of vegetables / fruit per day: 6 11/28/2017 None Annual Medicare Wellness Exam Smoking and Tobacco Use non smoker 11/28/2017 None Annual Medicare Wellness Exam Social & Emotional Support always 11/28/2017 None Annual Medicare Wellness Exam Stress almost all of the time 11/28/2017 None Annual Medicare Wellness Exam Sun Exposure protects skin when outdoors: y 11/28/2017 None cough Quality acute 08/29/2017 None cough Onset and Resolution sudden in onset 08/29/2017 None cough Quality intermittent 08/29/2017 None cough Pertinent Findings muscle aches 08/29/2017 None cough Quality worsening 08/29/2017 None cough Pertinent Findings dyspnea 08/29/2017 at times cough Pertinent Findings Denies fever 08/29/2017 None cough Pertinent Findings nasal congestion 08/29/2017 in the mornings cough Pertinent Findings post nasal drip 08/29/2017 a little cough Pertinent Findings Denies nausea 08/29/2017 None cough Pertinent Findings Denies vomiting 08/29/2017 None cough Onset of Symptom 2 weeks ago 08/29/2017 None depression Quality intermittent 06/13/2017 None depression Quality worsening 06/13/2017 None depression Onset and Resolution ongoing 06/13/2017 None depression Onset of Symptom _ years ago 06/13/2017 None depression Limitation on Activities moderately limits activities 06/13/2017 None depression Frequency of Episodes daily 06/13/2017 None depression Pertinent Findings anxiety 06/13/2017 None depression Pertinent Findings depressed mood 06/13/2017 None depression Pertinent Findings difficulty concentrating 06/13/2017 None depression Pertinent Findings Denies feeding difficulty 06/13/2017 None depression Pertinent Findings loss of interest in activities 06/13/2017 None depression Pertinent Findings weight loss 06/13/2017 None urinary frequency Quality acute 06/13/2017 None urinary frequency Onset and Resolution sudden in onset 06/13/2017 None urinary frequency Onset of Symptom 3 weeks ago 06/13/2017 None urinary frequency Limitation on Activities does not limit activities 06/13/2017 None urinary frequency Frequency of Episodes increasing 06/13/2017 None urinary frequency Triggers no known associated factors 06/13/2017 None urinary frequency Exacerbating Factors activity 06/13/2017 None urinary frequency Pertinent Findings bladder pain 06/13/2017 pressure urinary frequency Pertinent Findings pelvic pain 06/13/2017 None urinary frequency Pertinent Findings urinary urgency 06/13/2017 None anxiety Onset of Symptom during adulthood 06/13/2017 None anxiety Onset and Resolution ongoing 06/13/2017 None anxiety Quality stable 06/13/2017 None urinary frequency Quality acute 02/16/2017 None urinary [...] data Encounters Encounter Performer Location Codes Date EST. PATIENT, LEVEL II Diagnosis: Insect bite (nonvenomous) of right upper arm, initial encounter[ICD10: S40.861A] Diagnosis: Insect bite of unspecified part of neck, initial encounter[ICD10: S10.96XA] Suma Alvarado MD, [facility] CPT-4: 81921 12/04/2018 ([id number]) 98100 EST. PATIENT, LEVEL III Diagnosis: Cough[ICD10: R05] Diagnosis: Acute bronchitis, unspecified[ICD10: J20.9] Suma Alvarado MD, [facility] CPT-4: 81062 10/08/2018 ([id number]) 81122 EST. PATIENT, LEVEL III Diagnosis: Cough[ICD10: R05] Diagnosis: Acute recurrent maxillary sinusitis[ICD10: J01.01] Suma Alvarado MD, [facility] CPT-4: 34784 09/11/2018 15425 EST. PATIENT, LEVEL III Diagnosis: Pain in right hand[ICD10: M79.641] Gina Alvarado MD, [facility] CPT-4: 11196 07/12/2018 ([id number]) 18906 EST. PATIENT, LEVEL II Diagnosis: Dysuria[ICD10: R30.0] Suma Alvarado MD, [facility] CPT-4: 38476 05/07/2018 11348 EST. PATIENT, LEVEL IV Diagnosis: Tinnitus, bilateral[ICD10: H93.13] Diagnosis: Other allergic rhinitis[ICD10: J30.89] Gina Alvarado MD, [facility] CPT- 4: 37118 02/21/2018 18684 EST. PATIENT, LEVEL III Diagnosis: Acute laryngopharyngitis[ICD10: J06.0] Diagnosis: Other allergic rhinitis[ICD10: J30.89] Gina Alvarado MD, [facility] CPT- 4: 04866 08/29/2017 ([id number]) 51582 EST. PATIENT, LEVEL IV Diagnosis: Postprocedural hypothyroidism[ICD10: E89.0] Diagnosis: Major depressive disorder, recurrent, moderate[ICD10: F33.1] Diagnosis: Generalized anxiety disorder[ICD10: F41.1] Elina Alvarado MD, [facility] CPT-4: 47949 06/13/2017 ([id number]) 17017 EST. PATIENT, LEVEL IV Diagnosis: Pelvic and perineal pain[ICD10: R10.2] Diagnosis: Acute vaginitis[ICD10: N76.0] Suma Alvarado MD, [facility] CPT-4: 88074 02/16/2017 ([id number]) 27760 EST. PATIENT, LEVEL III Diagnosis: Postprocedural hypothyroidism[ICD10: E89.0] Diagnosis: Major depressive disorder, recurrent, moderate[ICD10: F33.1] Elina Alvarado MD, [facility] CPT-4: 08675 02/06/2017 ([id number]) 46092 EST. PATIENT, LEVEL III Diagnosis: Generalized anxiety disorder[ICD10: F41.1] Elina Alvarado MD [facility] CPT-4: 70577 10/12/2016 ([id number]) 37247 EST. PATIENT, LEVEL III Diagnosis: Cough[ICD10: R05] Diagnosis: Acute upper respiratory infection, unspecified[ICD10: J06.9] Suma Alvarado MD, [facility] CPT-4: 64771 09/05/2016 ([id number]) 24963 EST. PATIENT, LEVEL III Diagnosis: Generalized anxiety disorder[ICD10: F41.1] Diagnosis: Major depressive disorder, recurrent, moderate[ICD10: F33.1] Diagnosis: Postprocedural hypothyroidism[ICD10: E89.0] Elina Alvarado MD, [facility] CPT-4: 95453 06/21/2016 ([id number]) 11020 EST. PATIENT, LEVEL III Diagnosis: Major depressive disorder, recurrent, moderate[ICD10: F33.1] Elina Alvarado MD [facility] CPT-4: 62938 05/24/2016 ([id number]) 54518 EST. PATIENT, LEVEL III Diagnosis: Major depressive disorder, recurrent, moderate[ICD10: F33.1] Elina Alvarado MD [facility] CPT-4: 17809 05/10/2016 ([id number]) 54603 EST. PATIENT, LEVEL III Diagnosis: Generalized anxiety disorder[ICD10: F41.1] Diagnosis: Major depressive disorder, recurrent, moderate[ICD10: F33.1] Suma Alvarado MD [facility] CPT-4: 45930 05/03/2016 ([id number]) 37860 EST. PATIENT, LEVEL III Diagnosis: Cough[ICD10: R05] Diagnosis: Acute upper respiratory infection, unspecified[ICD10: J06.9] Suma Alvarado MD, [facility] CPT-4: 77287 07/23/2015 ([id number]) 48183 EST. PATIENT, LEVEL III Diagnosis: Hypothyroidism, unspecified[ICD10: E03.9] Diagnosis: Generalized anxiety disorder[ICD10: F41.1] Diagnosis: Other depressive episodes[ICD10: F32.8] Elina Alvarado MD, [facility] CPT-4: 96650 07/06/2015 ([id number]) 97923 EST. PATIENT, LEVEL IV Diagnosis: Generalized anxiety disorder[ICD10: F41.1] Diagnosis: Major depressive disorder, recurrent, unspecified[ICD10: F33.9] Elina Alvarado MD, [facility] CPT-4: 41426 05/26/2015 ([id number]) 09697 EST. PATIENT, LEVEL II Diagnosis: 2Nd degree burn of multiple fingers of right hand not including thumb[ICD9: 944.23] Suma Alvarado MD, [facility] CPT-4: 37266 02/16/2015 ([id number]) 70681 EST. PATIENT, LEVEL IV Diagnosis: Hammertoe[ICD9: 735.4] Diagnosis: Foot pain[ICD9: 729.5] Diagnosis: HYPOTHYROIDISM[ICD9: 244.9] Elina Alvarado MD, [facility] CPT-4: 10555 12/10/2014 ([id number]) 80482 EST. PATIENT, LEVEL III Diagnosis: Urinary incontinence[ICD9: 788.30] Diagnosis: Pelvic pain in female[ICD9: 625.9] Elina Alvarado MD, [facility] CPT- 4: 64342 10/16/2014 ([id number]) 14239 EST. PATIENT, LEVEL III Diagnosis: Urinary incontinence[ICD9: 788.30] Diagnosis: Pelvic pain in female[ICD9: 625.9] Suma Alvarado MD, [facility] CPT- 4: 42619 10/09/2014 ([id number]) 64531 EST. PATIENT, LEVEL III Diagnosis: HYPOTHYROIDISM[ICD9: 244.9] Elina Alvarado MD, [facility] CPT-4: 62646 08/26/2014 ([id number]) 08464 EST. PATIENT, LEVEL III Diagnosis: Neck pain[ICD9: 723.1] Diagnosis: Muscle tension headache[ICD9: 307.81] Suma Alvarado MD, [facility] CPT-4: 15231 05/16/2014 ([id number]) 75116 EST. PATIENT, LEVEL IV Diagnosis: Arthropod bite[ICD9: 919.4] Diagnosis: Poison gilmer dermatitis[ICD9: 692.6] Diagnosis: Arthralgia[ICD9: 719.40] Diagnosis: Myalgia[ICD9: 729.1] Elina Alvarado MD, [facility] CPT-4: 02918 04/23/2014 ([id number]) 87093 EST. PATIENT, LEVEL III Diagnosis: ACUTE URI[ICD9: 465.9] Diagnosis: COUGH[ICD9: 786.2] Suma Alvarado MD, [facility] CPT-4: 88968 01/21/2014 ([id number]) 29141 EST. PATIENT, LEVEL III Diagnosis: HYPOTHYROIDISM[ICD9: 244.9] Diagnosis: GENERALIZED ANXIETY DISEASE[ICD9: 300.02] Elina Alvarado MD, [facility] CPT-4: 50149 12/05/2013 ([id number]) 10158 EST. PATIENT, LEVEL III Diagnosis: GENERALIZED ANXIETY DISEASE[ICD9: 300.02] Diagnosis: DEPRESSIVE DISORDER NEC[ICD9: 311] RUBIA Alex MD CPT- 4: 08880 11/05/2013 ([id number]) 99476 EST. PATIENT, LEVEL III Diagnosis: HYPOTHYROIDISM[ICD9: 244.9] RUBIA Alex MD CPT-4: 39129 10/15/2013 ([id number]) Miscellaneous no charge Diagnosis: Colon cancer screening[ICD9: V76.51] RUBIA Alex MD CPT- 4: 26621 10/10/2013 ([id number]) 22289 EST. PATIENT, LEVEL IV Diagnosis: HYPOTHYROIDISM[ICD9: 244.9] Diagnosis: DEPRESSIVE DISORDER NEC[ICD9: 311] Diagnosis: GENERALIZED ANXIETY DISEASE[ICD9: 300.02] Diagnosis: HYPERLIPIDEMIA[ICD9: 272.4] RUBIA Alex MD CPT-4: 01660 03/13/2013 ([id number]) 19433 EST. PATIENT, LEVEL IV Diagnosis: HYPERLIPIDEMIA[ICD9: 272.4] Diagnosis: HYPOTHYROIDISM[ICD9: 244.9] Diagnosis: GENERALIZED ANXIETY DISEASE[ICD9: 300.02] Diagnosis: DEPRESSIVE DISORDER NEC[ICD9: 311] Elina Alvarado MD [facility] CPT- 4: 46939 10/04/2012 ([id number]) 51593 EST. PATIENT, LEVEL III Diagnosis: VICTOR HUGO (generalized anxiety disorder)[ICD9: 300.02] Diagnosis: Chronic depression[ICD9: 311] Elina Alvarado MD [facility] CPT-4: 23262 08/22/2011 47152 EST. PATIENT, LEVEL IV Diagnosis: CHEST PAIN NEC[ICD9: 786.59] Diagnosis: HYPERLIPIDEMIA[ICD9: 272.4] Diagnosis: POSTSURGICAL HYPOTHYROIDISM[ICD9: 244.0] Elina Alvarado MD, [facility] CPT-4: 60189 06/17/2011 Plan of Care Planned Activity Notes Codes Status Date Referral: Greg Murcia HPtel:[phone] [facility] [place] [place] Patient has been informed. Referral info faxed. Completed 12/24/2018 Visit Plan: Tick Bite - pt given script for treatment of infected tick bite, call for symptoms of worsening infection or nonhealing. 12/04/2018 Appointment: Suma Choi WPtel: [address] [place], [place] [id number] (30 min) Complex 12/04/2018 Patient Education: Patient Medication Summary Completed 12/04/2018 Visit Plan: Medicare Exam - today we [...] her DOPA paperwork for health care surrogate. 11/28/2018 Appointment: Gina Kern WPtel: [address] [place] [address] - Annual Wellness Visit 11/28/2018 Patient Education: Patient Medication Summary Completed 11/28/2018 Care Plan: Referral Order SNOMED-CT : [id number] Pending 11/28/2018 Visit Plan: Bronchitis - acute case of bronchitis identified. Pt has been given antibiotics, breathing treatments as appropriate, and pt has been instructed to call if symptoms are not improved, or if symptoms acutely worsen. 10/08/2018 Appointment: Suma Choi WPtel: [phone] (30 min) Complex 10/08/2018 Patient Education: Patient Medication Summary Completed 10/08/2018 Visit Plan: Sinusitis - Pt has acute infection - pain in face, maxillary region, Pt informed to use decongestant, RX given to patient, sinus rinses also recommended. Call if symptoms do not show improvement. 09/11/2018 Appointment: Suma Choi WPtel: [phone] (15 min) Moderate 09/11/2018 Patient Education: Patient Medication Summary Completed 09/11/2018 Visit Plan: Right hand pain - ongoing - will send for x-ray - The pt is to use prn antiinflammatories to manage acute pain. The patient is to call the office if the pain is worsening or does not improve. 07/12/2018 Appointment: Gina Kern WPtel: [facility] (15 min) Moderate 07/12/2018 Patient Education: Patient Medication Summary Completed 07/12/2018 Care Plan: X-RAY EXAM OF HAND LOINC : 58896-0 Pending 07/12/2018 Visit Plan: Dysuria- UA negative -symptoms resolved -instructed patient to continue with adequate fluid intake and call if symptoms return. Patient verbalized understanding of plan. 05/07/2018 Appointment: Suma Choi WPtel: [facility] [place] [address] (15 min) Moderate 05/07/2018 Patient Education: Patient Medication Summary Completed 05/07/2018 Appointment: Injection 04/24/2018 Patient Education: Patient Medication Summary Completed 04/24/2018 Referral: Peter Rubio [address] Referral Completed 03/22/2018 Visit Plan: Allergies - chronic - recommended pt to use allergy medication as prescribed. Pt has been counseled as to the appropriate use of the medication. Pt to call if allergy symptoms are not controlled with the medication. If using nasal spray, instructions as follows: Nasal spray- use twice daily, one spray per nostril twice daily, after 30 minutes, rinse out nose with saline spray.. Use opposite hand per nostril to spray in the nasal steroid allergy spray. Tinnitus - will refer to ENT for hearing testing 02/21/2018 Appointment: Gina Kern WPtel: [facility] (15 min) Moderate 02/21/2018 Patient Education: Patient Medication Summary Completed 02/21/2018 Care Plan: Referral Order SNOMED-CT : [id number] Pending 02/21/2018 Appointment: Elina Alvarado WPtel: [phone] [facility] (15 min) Moderate 12/14/2017 Visit Plan: Medicare Exam - today we [...] her DOPA paperwork for health care surrogate. 11/28/2017 Patient Education: Patient Medication Summary Completed 11/28/2017 Appointment: Gina Kern WPtel: [phone] [facility] [facility] - Annual Wellness Visit 11/21/2017 Visit Plan: URI - Pt advised to increase fluids, vitamin C. Discussed natural and expected course of this diagnosis and need to alert me if symptoms do not follow expected course, or if any worse. RX sent to patient's pharmacy. Allergies - chronic - recommended pt to use allergy medication as prescribed. Pt has been counseled as to the appropriate use of the medication. Pt to call if allergy symptoms are not controlled with the medication. If using nasal spray, instructions as follows: Nasal spray- use twice daily, one spray per nostril twice daily, after 30 minutes, rinse out nose with saline spray.. Use opposite hand per nostril to spray in the nasal steroid allergy spray. 08/29/2017 Appointment: [facility]ern [phone] (15 min) Moderate 08/29/2017 Patient Education: Patient Medication Summary Completed 08/29/2017 Visit Plan: Hypothyroidism - pt with chronic hypothyroidism, continue with current medication, will monitor pt to signs or symptoms of lack of adequate supplementation. Pt is to continue with current dose of medication unless directed otherwise. Check labs at regular intervals wither q 3 months or q 6 months based on previous levels of control. TSH high - increase synthroid to 112mcg daily. Chronic Depression and anxiety - the pt has symptoms of chronic anxiety and depression that have been fairly well controlled since the last office visit. The pt has expected periods of exacerbation with abatement of the symptoms with change in situational exposure. No change in current medications. Symptoms stable, continue with counseling. 06/13/2017 Appointment: Elina Alvarado WPtel: [phone] [facility] [place] (15 min) Moderate 06/13/2017 Patient Education: Patient Medication Summary Completed 06/13/2017 Appointment: Injection 06/07/2017 Patient Education: Patient Medication Summary Completed 06/07/2017 Visit Plan: Pelvic pain-UA negative-pap done today in the office- will start patient on flagyl for bacterial vaginosis-instructed patient to call if symptoms do not resolve or if any worse. Patient verbalized understanding of plan. 02/16/2017 Appointment: Suma Choi WPtel: [phone] [phone] [place] (30 min) Complex 02/16/2017 Patient Education: Patient [...] current medications. 02/06/2017 Appointment: Elina Alvarado WPtel: [phone] [place] (15 min) Moderate 02/06/2017 Patient Education: Patient [...] care surrogate. 11/17/2016 Appointment: Gina Kern WPtel: [address] [place] [address] - Annual Wellness Visit 11/17/2016 Patient Education: [...] current medications. 10/12/2016 Appointment: Elina Alvarado WPtel: [address] [place] [address] (15 min) Moderate 10/12/2016 Patient Education: Patient Medication Summary Completed 10/12/2016 Visit Diagnosis Plan: Cough Recommendations: Kenalog injection today in the office-RX sent to patient's pharmacy and instructed her to call if symptoms do not resolve or if any worse ICD-9 : 786.2 ICD-10 : R05 09/05/2016 Visit Diagnosis Plan: Acute upper respiratory infection, unspecified Discussion: URI - Pt advised to increase fluids, vitamin C. Discussed natural and expected course of this diagnosis and need to alert me if symptoms do not follow expected course, or if any worse. RX sent to patient's pharmacy. ICD-9 : 465.9 ICD-10 : J06.9 09/05/2016 Appointment: Suma Choi WPtel: [facility] [address] [place] (10 min) Simple 09/05/2016 Patient Education: [...] lexapro 06/21/2016 Appointment: Elina Alvarado WPtel: [phone] (15 min) Moderate 06/21/2016 Patient Education: Patient Medication Summary Completed 06/21/2016 Visit Plan: Depression - improved with lexapro - continue with current treatment and counseling. 05/24/2016 Appointment: Elina Alvarado WPtel: [facility] (15 min) Moderate 05/24/2016 Patient Education: Patient Medication Summary Completed 05/24/2016 Visit Plan: Depression - improved on the Lexapro - stop ativan - start on xanax 05/10/2016 Appointment: Elina Alvarado WPtel: [facility] (15 min) Moderate 05/10/2016 Patient Education: [...] Summary Completed 05/03/2016 Appointment: Suma Choi WPtel: [phone] [phone] [place] (15 min) Moderate 02/26/2016 Visit Plan: [...] and to maintain independece in the home. [id number] to wellbutrin Pneumonia 13 administered today in [...] and to maintain independece in the home. [id number]-[id number] to wellbutrin Pneumonia 13 administered today in the office 11/13/2015 Appointment: [facility] - Annual Wellness Visit 11/13/2015 Patient Education: Patient Medication Summary Completed 11/13/2015 Patient Education: Obesity Completed 11/13/2015 Care Plan: [employer] : 77738-4 Ordered 11/13/2015 Appointment: Lab Draw 08/10/2015 Visit [...] current medications. 07/06/2015 Appointment: Elina Alvarado WPtel: [address] [place], [place] [phone] (30 min) Complex 07/06/2015 Patient Education: Patient [...] in the office-continue with current treatment as discussed- instructed patient to call for any signs/symptoms of infection or other conc erns. Patient verbalized understanding of plan. 02/16/2015 Patient [...] upon discharge. 12/10/2014 Appointment: Elina Alvarado WPtel: [address] [place], [place] [phone] Surgical Clearance 12/10/2014 Patient Education: Patient Medication Summary Completed 12/10/2014 Visit Plan: Urinary incontinence and Pelvic discomfort - recommended pt to have evaluation by Dr. Brandt - pt agreeable to referral. Pt is to call if abdominal pain does not improve. 10/16/2014 Appointment: Elina Alvarado WPtel: [address] [place], [place] [phone] Follow up 10/16/2014 Patient Education: Patient Medication Summary Completed 10/16/2014 Care Plan: Referral Order SNOMED-CT : [id number] Ordered 10/16/2014 Patient Education: Patient Medication Summary Completed 10/10/2014 Visit Plan: Pelvic pain-history of mesh implant-recommend CT abd/pelvis to evaluate for any abnormality-refer to Dr Woods if pain does not improve Urinary incontinence-check UA with C&S if indicated 10/09/2014 Patient Education: Patient Medication Summary Completed 10/09/2014 Care Plan: CT ABD & PELV /> GENNY JACINTO : 34078-1 Ordered 10/09/2014 Visit Plan: Hypothyroidism - pt with chronic hypothyroidism, continue with current medication, will monitor pt to signs or symptoms of lack of adequate supplementation. Pt is to continue with current dose of medication unless directed otherwise. Check labs at regular intervals wither q 3 months or q 6 months based on previous levels of control. 08/26/2014 Appointment: Elina Alvarado WPtel: [facility] Follow up 08/26/2014 Patient Education: Patient Medication Summary Completed 08/26/2014 Visit Plan: Neck pain-muscle tightness-recommend anti inflammatories as directed-samples [...] with screening. 04/23/2014 Appointment: Elina Alvarado WPtel: [address] [place], [place] [id number] Sick 04/23/2014 Patient Education: Patient Medication Summary Completed 04/23/2014 Care Plan: Referral Order SNOMED-CT : [id number] Ordered 04/23/2014 Appointment: Nurse Visit 04/15/2014 Patient Education: Patient Medication Summary Completed 04/15/2014 Appointment: Elina Alvarado WPtel: [facility] [place] Injection 02/11/2014 Patient Education: Patient Medication [...] current treatment. 12/05/2013 Appointment: Elina Alvarado WPtel: [address] [place] [address] Follow up 12/05/2013 Patient Education: Patient Medication [...] above medications. 11/05/2013 Appointment: Elina Alvarado WPtel: [facility] [address] Follow up 11/05/2013 Patient Education: Patient Medication [...] of control. 10/15/2013 Appointment: Elina Alvarado WPtel: [facility] Well Woman 10/15/2013 Patient Education: Patient Medication [...] surrogate. 09/30/2013 Appointment: Elina Alvarado WPtel: [phone] [facility] [facility] - Initial Preventive Physical Exam 09/30/2013 Patient Education: Patient Medication Summary Completed 09/30/2013 Appointment: Elina Alvarado WPtel: [address] [facility] [facility] - Initial Preventive Physical Exam 09/11/2013 [...] ativan for prn use. 03/13/2013 Appointment: [facility]adol[facility] [facility] Follow up 03/13/2013 Patient Education: Patient [...] medications. 10/04/2012 Appointment: [facility] Alvarado [facility]Ptel[facility] [phone] [facility] Follow up 10/04/2012 Patient Education: [...] anxiety attacks. 08/22/2011 Appointment: Elina Alvarado WPtel: [address] [place] [address] Other 08/22/2011 Patient Education: Patient Medication Summary Completed 08/22/2011 Visit Plan: check labs appointment with dr ambrocio chest xray, echocardiogram thyroid ultrasound if the chest pain becomes acute, worsens, or does not go away, go to the emergency room HYPERLIPIDEMIA - CONTINUE WITH CURRENT TREATMENT. DISCUSSED DIET CHANGES, NEED LOW FAT DIET. HYPOTHYROIDISM - CONTINUE WITH CURRENT MEDICATIONS, CHECH THYROID ULTRASOUND 06/17/2011 Appointment: Elina Alvarado WPtel: [address] [place] [address] Other 06/17/2011 Patient Education: Patient Medication Summary Completed 06/17/2011 Referral: Raimundo Brandt WPtel: Referral Appointment Requested Referral: Greg Murcia HPtel:[phone] Referral Initiated Referral: Ramiro [address] Referral Initiated Referral: Dr. Phelps WPtel: Referral Initiated Instructions Comment . Hypothyroidism - pt with chronic hypothyroidism, [...] refill of ativan for prn use. . Well Adult Female - exam completed. [...] months based on previous levels of control. ROCEPHIN INJECTION TODAY IN THE OFFICE, START ZPACK TODAY PHENERGAN WITH CODEINE COUGH SYRUP . URI - Pt advised to increase fluids, vitamin C. Discussed natural and expected course of this diagnosis and need to alert me if symtpoms do not follow expected course, or if any worse. RX sent to patient's pharmacy. Kenalog injection today in the office. . Hypothyroidism - pt with chronic hypothyroidism, [...] concerns. Patient verbalized understanding of plan. . Dysuria- UA negative -symptoms resolved -instructed patient to continue with adequate fluid intake and call if symptoms return. Patient verbalized understanding of plan. . Depression - improved on the Lexapro - stop ativan - start on xanax . Kathy - Foot pain - pt to have surgery on 12/15/14, Dr. Reinoso to take pt to surgery - Pt is medically cleared for surgical intervention on her foot. Pt has chronic hypothyroidism, depression and anxiety - needs to continue her medications upon discharge. . Medicare Exam - today we discussed [...] DOPA paperwork for health care surrogate. . Sinusitis - Pt has acute infection - pain in face, maxillary region, Pt informed to use decongestant, RX given to patient, sinus rinses also recommended. Call if symptoms do not show improvement. . Neck pain-muscle tightness-recommend anti inflammatories as directed-samples of vimovo provided and instructed on use. Use rice bag heat several times daily as tolerated-get supportive pillow. Call if symptoms do not resolve. STOP LEXAPRO START WELLBUTRIN 75MG TWICE DAILY [...] and to maintain independece in the home. Fpiswpqgaz-taryjsbyqyce-fdegfs to wellbutrin Pneumonia 13 administered today in the office . Tick Bite - pt given script for treatment of infected tick bite, call for symptoms of worsening infection or nonhealing. STOP LEXAPRO START WELLBUTRIN 75MG TWICE DAILY [...] and to maintain independece in the home. Dctypzvqga-pwcityrbidii-wtjrnl to wellbutrin Pneumonia 13 administered today in the office . Hyperlipidemia - pt has been counseled [...] medications. Patient verbalized understanding of plan. . Hypothyroidism [...] exposure. No change in current medications. . Urinary incontinence and Pelvic discomfort - recommended pt to have evaluation by Dr. Brandt - pt agreeable to referral. Pt is to call if abdominal pain does not improve. . Allergies - chronic - recommended pt to use allergy medication as prescribed. Pt has been counseled as to the appropriate use of the medication. Pt to call if allergy symptoms are not controlled with the medication. If using nasal spray, instructions as follows: Nasal spray- use twice daily, one spray per nostril twice daily, after 30 minutes, rinse out nose with saline spray.. Use opposite hand per nostril to spray in the nasal steroid allergy spray. Tinnitus - will refer to ENT for hearing testing . Anxiety - the patient has uncontrolled anxiety and will benefit from an SSRI on a daily basis to attempt control of the symptoms of anxiety (tachycardia, overwhelming sensations, stress, insomnia, etc). I also believe that the patient will benefit from very low dose of prn benzodiazepine. Pt is aware of the risks and benefits of treament with the above medications. . Medicare Exam - today we discussed [...] her DOPA paperwork for health care surrogate. increase synthroid to 112 mcg daily. . Hypothyroidism - pt with chronic hypothyroidism, continue with current medication, will monitor pt to signs or symptoms of lack of adequate supplementation. Pt is to continue with current dose of medication unless directed otherwise. Check labs at regular intervals wither q 3 months or q 6 months based on previous levels of control. TSH high - increase synthroid to 112mcg daily. Chronic Depression and anxiety - the pt has symptoms of chronic anxiety and depression that have been fairly well controlled since the last office visit. The pt has expected periods of exacerbation with abatement of the symptoms with change in situational exposure. No change in current medications. Symptoms stable, continue with counseling. . Depression - improved with lexapro - continue with current treatment and counseling. . Hypothyroidism - pt with chronic hypothyroidism, continue with current medication, will monitor pt to signs or symptoms of lack of adequate supplementation. Pt is to continue with current dose of medication unless directed otherwise. Check labs at regular intervals wither q 3 months or q 6 months based on previous levels of control. . URI - Pt advised to increase fluids, vitamin C. Discussed natural and expected course of this diagnosis and need to alert me if symptoms do not follow expected course, or if any worse. RX sent to patient's pharmacy. Allergies - chronic - recommended pt to use allergy medication as prescribed. Pt has been counseled as to the appropriate use of the medication. Pt to call if allergy symptoms are not controlled with the medication. If using nasal spray, instructions as follows: Nasal spray- use twice daily, one spray per nostril twice daily, after 30 minutes, rinse out nose with saline spray.. Use opposite hand per nostril to spray in the nasal steroid allergy spray. LEXAPRO 20MG 1/2 TAB DAILY X 1 [...] benefits of treatment with the above medications. schedule well woman . Medicare Exam - today we discussed [...] DOPA paperwork for health care surrogate. . Tick Bite - pt given script [...] PRN basis for severe anxiety attacks. . Right hand pain - ongoing - will send for x-ray - The pt is to use prn antiinflammatories to manage acute pain. The patient is to call the office if the pain is worsening or does not improve. . Pelvic pain-history of mesh implant-recommend CT abd/pelvis to evaluate for any abnormality-refer to Dr Woods if pain does not improve Urinary incontinence-check UA with C&S if indicated . Medicare Exam - today we discussed [...] CONTINUE WITH CURRENT MEDICATIONS, CHECH THYROID ULTRASOUND mucinex twice daily -drink lots of water flonase nasal spray kenalog injection today zpack call if not better . Bronchitis - acute case of bronchitis identified. Pt has been given antibiotics, breathing treatments as appropriate, and pt has been instructed to call if symptoms are not improved, or if symptoms acutely worsen. Pap Repeat UA if painful urination persists Flagyl -sent to [facility] Call if symptoms do not resolve completely . Pelvic pain-UA negative-pap done today in the office-will start patient on flagyl for bacterial vaginosis-instructed patient to call if symptoms do not resolve or if any worse. Patient verbalized understanding of plan. keflex-[facility] . URI - Pt advised to increase fluids, vitamin C. Discussed natural and expected course of this diagnosis and need to alert me if symtpoms do not follow expected course, or if any worse. RX sent to patient's pharmacy. Kenalog injection today in the office.
--- OUTSIDE RECORDS SUMMARY | 2018-12-27 09:15 | XMS REPORT | CCD ---
Author Author [facility] Organization [facility] Address [address] [place] [address] Phone Care Team Providers Care Binder Operator Name Role Phone PP Unavailable CCM Unavailable Summary Purpose Interface Exchange Insurance Providers Payer name Policy type / Coverage type Covered republican ID Effective Begin Date Effective End Date WPS Medicare Part B [id number] 2018 Unknown [facility] [id number] Unknown Family history Grandmother Diagnosis Age At [...] Description Effective Dates Tobacco history SNOMED CT: 8317985 Former smoker quit 2 years ago, social smoker, 1 pack per month 200709/30/2013 Employment 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 Marital status Unknown 06/17/[address]: 989000 Currently drinks alcohol 2 beers/week 06/17/2011 Has [...] 02/16/2017 Unknown Pelvic and perineal pain ICD-9: [id number] ICD-10: R10.2 Active 02/16/2017 Unknown Hypothyroidism, unspecified [...] 02/16/2017 Active Pelvic and perineal pain ICD-9: [id number] ICD-10: R10.2 02/16/2017 Active Hypothyroidism, unspecified ICD-9: [...] Instructions doxycycline hyclate 100 mg tablet RxNorm: 7772352 1 Tablet(s) PO BID 12/04/2018 12/13/2018 Active Zithromax Z-Que 250 mg tablet RxNorm: 501845 1 Tablet(s) PO UD 10/08/2018 10/12/2018 Inactive Kenalog 40 mg/mL suspension for injection RxNorm: 7459509 Milliliter(s) Inj 10/08/2018 10/08/2018 Inactive Xanax 0.5 mg tablet RxNorm: 250567 1 Tablet(s) PO QID as needed anxiety 09/24/2018 11/21/2018 Inactive Kenalog 40 mg/mL suspension for injection RxNorm: 9398540 1 Milliliter(s) Inj 09/11/2018 09/11/2018 Inactive Augmentin 875 mg-125 mg tablet RxNorm: 576233 1 Tablet(s) PO BID 09/11/2018 09/17/2018 Inactive naproxen 500 mg tablet RxNorm: 991431 1 Tablet(s) PO BID 07/12/2018 07/16/2018 Inactive Synthroid 112 mcg tablet RxNorm: 802513 TAKE ONE TABLET BY MOUTH DAILY 07/02/2018 12/28/2018 Active Lipitor 10 mg tablet RxNorm: 395708 TAKE ONE TABLET BY MOUTH EVERY DAY 06/06/2018 05/31/2019 Active Lexapro 20 mg tablet RxNorm: 192527 TAKE ONE TABLET BY MOUTH DAILY 05/08/2018 12/03/2018 Inactive Synthroid 100 mcg tablet RxNorm: 530227 TAKE ONE TABLET BY MOUTH EVERY OTHER DAY 04/10/2018 10/06/2018 Inactive Synthroid 100 mcg tablet RxNorm: 922713 1 Tablet(s) PO every other day 12/11/2017 04/09/2018 Inactive QOD -alternate with 112mcg DISPENSE BRAND NAME Synthroid 112 mcg tablet RxNorm: 743004 1 Tablet(s) every other day 11/28/2017 03/27/2018 Inactive QOD alternate with 100mcg Synthroid 100 mcg tablet RxNorm: 894456 1 Tablet(s) PO every other day 11/28/2017 12/10/2017 Inactive QOD -alternate with 112mcg DISP[employer] BRAND NAME Synthroid 100 mcg tablet RxNorm: 051503 1 Tablet(s) PO every other day 11/28/2017 11/27/2017 Inactive QOD -alternate with 112mcg Xanax 0.5 mg tablet RxNorm: 220792 1 Tablet(s) PO QID as needed anxiety 11/14/2017 01/11/2018 Inactive Lexapro 20 mg tablet RxNorm: 037117 TAKE ONE TABLET BY MOUTH DAILY 11/13/2017 05/07/2018 Inactive Xanax 0.5 mg tablet RxNorm: 140432 1 Tablet(s) PO QID as needed anxiety 09/11/2017 11/08/2017 Inactive Tamiflu 75 mg capsule RxNorm: 569811 1 Capsule(s) PO BID 08/29/2017 09/02/2017 Inactive Synthroid 112 mcg tablet RxNorm: 121261 1 Tablet(s) daily 08/14/2017 11/27/2017 Inactive fyi - medication changed, refill x 6 - #30 pills Synthroid 112 mcg tablet RxNorm: 382231 1 Tablet(s) daily 06/13/2017 08/13/2017 Inactive fyi - medication changed, refill x 6 - #30 pills Lexapro 20 mg tablet RxNorm: 056118 TAKE ONE TABLET BY MOUTH DAILY 06/09/2017 11/05/2017 Inactive Synthroid 112 mcg tablet RxNorm: 535158 TAKE 1 TABLET BY MOUTH DAILY EXCEPT TAKE 1/2 TABLET ON MONDAY, MONDAY, AND Monday05/22/2017 06/12/2017 Inactive Lipitor 10 mg tablet RxNorm: 253921 TAKE ONE TABLET BY MOUTH EVERY DAY 03/08/2017 05/31/2018 Inactive Flagyl 500 mg tablet RxNorm: 111100 1 Tablet(s) PO TID 02/16/2017 02/22/2017 Inactive Xanax 0.5 mg tablet RxNorm: 394221 1 Tablet(s) PO QID as needed anxiety 12/23/2016 03/21/2017 Inactive Synthroid 112 mcg tablet RxNorm: 176548 TAKE 1 TABLET BY MOUTH DAILY EXCEPT FOR TAKE 1/2 TABLET ON MONDAY, MONDAY, AND Monday12/23/2016 04/13/2017 Inactive Lexapro 20 mg tablet RxNorm: 246376 TAKE ONE TABLET BY MOUTH DAILY 11/29/2016 05/27/2017 Inactive Zithromax Z-Que 250 mg tablet RxNorm: 780862 1 Tablet(s) PO UD 09/05/2016 09/09/2016 Inactive zpack Kenalog 40 mg/mL suspension for injection RxNorm: 8197396 1 Milliliter(s) Inj 09/05/2016 09/05/2016 Inactive Lipitor 10 mg tablet RxNorm: 850575 TAKE ONE TABLET BY MOUTH EVERY DAY 08/30/2016 02/25/2017 Inactive Ativan 1 mg tablet RxNorm: 074761 1 Tablet(s) PO Q6 PRN as needed TAKE ONE TABLET BY MOUTH THREE TIMES A DAY OR EVERY 6 HOURS NEEDED FOR ANXIETY 08/30/2016 12/22/2016 Inactive Synthroid 112 mcg tablet RxNorm: 646795 1 Tablet(s) PO daily except one-half tab on /Sat 08/23/2016 12/12/2016 Inactive will refill when needed Lexapro 20 mg tablet RxNorm: 820059 TAKE ONE TABLET BY MOUTH DAILY 08/02/2016 11/28/2016 Inactive Synthroid 112 mcg tablet RxNorm: 856734 1 Tablet(s) PO daily except 1/2 tab wed and sat 05/25/2016 08/22/2016 Inactive will refill when needed Xanax 0.5 mg tablet RxNorm: 377287 1 Tablet(s) PO QID as needed anxiety 05/10/2016 08/29/2016 Inactive Lexapro 20 mg tablet RxNorm: 967560 1 Tablet(s) PO daily 05/03/2016 07/31/2016 Inactive 1/2 tab x 1 week then increase to a full pill daily buspirone 5 mg tablet RxNorm: 045210 TAKE ONE-HALF TABLET BY MOUTH TWICE A DAY 03/15/2016 05/02/2016 Inactive Synthroid 112 mcg tablet RxNorm: 123292 1 Tablet(s) PO daily 02/25/2016 05/24/2016 Inactive Ativan 1 mg tablet RxNorm: 860155 Tablet(s) TAKE ONE TABLET BY MOUTH THREE TIMES A DAY OR EVERY 6 HOURS NEEDED FOR ANXIETY 02/04/2016 05/08/2016 Inactive Synthroid 125 mcg tablet RxNorm: 337831 TAKE ONE TABLET BY MOUTH TWICE WEEKLY 01/11/2016 02/24/2016 Inactive Synthroid 112 mcg tablet RxNorm: 648017 TAKE ONE TABLET BY MOUTH FIVE DAYS A WEEK 01/11/2016 02/24/2016 Inactive Wellbutrin 75 mg tablet RxNorm: 193829 TAKE ONE TABLET BY MOUTH TWICE A DAY 01/11/2016 05/02/2016 Inactive Ativan 1 mg tablet RxNorm: 995607 TAKE ONE TABLET BY MOUTH THREE TIMES A DAY OR EVERY 6 HOURS NEEDED 12/03/2015 12/27/2015 Inactive Lipitor 10 mg tablet RxNorm: 076629 TAKE ONE TABLET BY MOUTH EVERY DAY 12/03/2015 08/28/2016 Inactive Ativan 1 mg tablet RxNorm: 883807 Tablet(s) TAKE ONE TABLET BY MOUTH THREE TIMES A DAY AND TAKE ONE TABLET BY MOUTH EVERY 6 HOURS NEEDED FOR ANXIETY 12/03/2015 12/02/2015 Inactive (Response to an electronic controlled substance refill request - RxReferenceNumber: [id number]) Wellbutrin 75 mg tablet RxNorm: 008051 1 Tablet(s) PO BID 11/13/2015 01/10/2016 Inactive Ativan 1 mg tablet RxNorm: 964316 Tablet(s) TAKE ONE TABLET BY MOUTH THREE TIMES A DAY AND TAKE ONE TABLET BY MOUTH EVERY 6 HOURS NEEDED FOR ANXIETY 09/23/2015 10/30/2015 Inactive (Response to an electronic controlled substance refill request - RxReferenceNumber: [id number]) buspirone 5 mg tablet RxNorm: 118891 TAKE ONE-HALF TABLET BY MOUTH TWICE A DAY 08/18/2015 03/01/2016 Inactive ceftriaxone 500 mg solution for injection RxNorm: 0498679 Inj 07/23/2015 07/23/2015 Inactive Zithromax Z-Que 250 mg tablet RxNorm: 135985 1 Tablet(s) PO UD 07/23/2015 07/27/2015 Inactive GIORGIO buspirone 5 mg tablet RxNorm: 137357 1 Tablet(s) PO daily 07/06/2015 11/27/2018 Inactive buspirone 5 mg tablet RxNorm: 261917 1/2 Tablet(s) PO BID 05/26/2015 07/05/2015 Inactive Lipitor 10 mg tablet RxNorm: 069600 TAKE ONE TABLET BY MOUTH EVERY DAY 04/23/2015 10/19/2015 Inactive Ativan 1 mg tablet RxNorm: 894894 Tablet(s) TAKE ONE TABLET BY MOUTH THREE TIMES A DAY AND TAKE ONE TABLET BY MOUTH EVERY 6 HOURS NEEDED FOR ANXIETY 02/23/2015 04/01/2015 Inactive (Response to an electronic controlled substance refill request - RxReferenceNumber: [id number]) Synthroid 125 mcg tablet RxNorm: 694306 1 Tablet(s) PO UD twice weekly 12/10/2014 06/07/2015 Inactive Synthroid 112 mcg tablet RxNorm: 928285 1 Tablet(s) PO UD TAKE ONE TABLET BY MOUTH 5 days a week 12/10/2014 12/04/2015 Inactive Lexapro 20 mg tablet RxNorm: 659164 1 Tablet(s) PO daily 11/26/2014 11/12/2015 Inactive Lipitor 10 mg tablet RxNorm: 339500 TAKE ONE TABLET BY MOUTH EVERY DAY 10/21/2014 04/18/2015 Inactive amoxicillin 500 mg capsule RxNorm: 279908 1 Capsule(s) PO TID 10/15/2014 10/21/2014 Inactive take probiotic BID x 7 days during abt period amoxicillin 500 mg capsule RxNorm: 764553 1 Capsule(s) PO TID 10/15/2014 10/14/2014 Inactive take probiotic BID x 7 days during abt period Ativan 1 mg tablet RxNorm: 410044 TAKE ONE TABLET BY MOUTH THREE TIMES A DAY AND TAKE ONE TABLET BY MOUTH EVERY 6 HOURS NEEDED FOR ANXIETY 08/21/2014 09/28/2014 Inactive (Response to an electronic controlled substance refill request - RxReferenceNumber: [id number]) Ativan 1 mg tablet RxNorm: 193553 1 Tablet(s) PO tid and Q6 PRN as needed 08/18/2014 08/21/2014 Inactive doxycycline hyclate 100 mg tablet RxNorm: 403612 1 Tablet(s) PO BID 04/23/2014 05/25/2015 Inactive prednisone 10 mg tablets in a dose pack RxNorm: 156370 1 Tablet(s) PO 02/14/2014 05/25/2015 Inactive Kenalog 40 mg/mL suspension for injection RxNorm: 4788389 1 Milliliter(s) Inj 02/11/2014 02/11/2014 Inactive Keflex 500 mg capsule RxNorm: 918192 1 Capsule(s) PO TID 01/21/2014 01/27/2014 Inactive Kenalog 40 mg/mL suspension for injection RxNorm: 3335019 Milliliter(s) Inj 01/21/2014 01/21/2014 Inactive Synthroid 112 mcg tablet RxNorm: 805636 1 Tablet(s) PO daily TAKE ONE TABLET BY MOUTH EVERY DAY 12/05/2013 11/29/2014 Inactive Ativan 1 mg tablet RxNorm: 520956 1 Tablet(s) PO Q6 PRN 11/05/2013 02/02/2014 Inactive Lexapro 20 mg tablet RxNorm: 460907 1 Tablet(s) PO daily 11/05/2013 11/04/2013 Inactive Lexapro 20 mg tablet RxNorm: 340225 1 Tablet(s) PO daily 11/05/2013 10/30/2014 Inactive Lipitor 10 mg tablet RxNorm: 788956 1 Tablet(s) PO QPM TAKE ONE TABLET BY MOUTH EVERY DAY 09/30/2013 10/20/2014 Inactive Lexapro 20 mg tablet RxNorm: 267634 1 Tablet(s) PO daily 09/30/2013 11/04/2013 Inactive Synthroid 125 mcg tablet RxNorm: 655377 1 Tablet(s) PO daily 09/10/2013 12/04/2013 Inactive Synthroid 100 mcg tablet RxNorm: 787068 1 Tablet(s) PO daily TAKE ONE TABLET BY MOUTH EVERY DAY 09/06/2013 09/09/2013 Inactive Lipitor 10 mg tablet RxNorm: 441392 Tablet(s) PO TAKE ONE TABLET BY MOUTH EVERY DAY 08/15/2013 09/29/2013 Inactive Synthroid 100 mcg tablet RxNorm: 749115 1 Tablet(s) PO daily TAKE ONE TABLET BY MOUTH EVERY DAY 04/26/2013 09/05/2013 Inactive Ativan 1 mg tablet RxNorm: 792344 1 Tablet(s) PO Q6 PRN 03/13/2013 No Stop Date Active Synthroid 100 mcg tablet RxNorm: 667259 1 Tablet(s) PO daily TAKE ONE TABLET BY MOUTH EVERY DAY 03/13/2013 04/25/2013 Inactive Lexapro 20 mg tablet RxNorm: 291784 1/2 Tablet(s) PO BID 03/13/2013 09/29/2013 Inactive Synthroid 112 mcg tablet RxNorm: 523990 Tablet(s) PO TAKE ONE TABLET BY MOUTH EVERY DAY 01/08/2013 03/12/2013 Inactive Lexapro 20 mg tablet RxNorm: 642608 Tablet(s) PO TAKE 1/2 TABLET EVERY MORNING AND TAKE ONE TABLET BY MOUTH AT BEDTIME 10/18/2012 03/12/2013 Inactive Lipitor 20 mg tablet RxNorm: 745668 1/2 Tablet(s) PO daily 08/20/2012 02/04/2013 Inactive Lipitor 10 mg tablet RxNorm: 921321 1 Tablet(s) PO daily 05/23/2012 08/19/2012 Inactive Synthroid 112 mcg tablet RxNorm: 569367 1 Tablet(s) PO daily 12/16/2011 01/07/2013 Inactive Synthroid 112 mcg Tab RxNorm: 084894 1 Tablet(s) PO daily 12/16/2011 12/15/2011 Inactive Lipitor 10 mg tablet RxNorm: 366092 1 Tablet(s) PO daily 12/15/2011 05/22/2012 Inactive Synthroid 112 mcg Tab RxNorm: 481856 1 Tablet(s) PO every other day 11/09/2011 12/15/2011 Inactive every other day Synthroid 112 mcg Tab RxNorm: 703456 1 Tablet(s) PO every other day 10/21/2011 11/08/2011 Inactive every other day Synthroid 125 mcg Tab RxNorm: 373889 1 Tablet(s) PO every other day 10/21/2011 12/16/2011 Inactive every other day Lexapro 20 mg tablet RxNorm: 847399 1.5 Tablet(s) PO daily 1/2 pill in AM and 1 pill at bedtime 09/22/2011 04/18/2012 Inactive 1/2 q am 1 q hs diazepam 5 mg Tab RxNorm: 189266 1 Tablet(s) PO daily 1 tab bid prn 09/21/2011 05/17/2012 Inactive Lexapro 20 mg Tab RxNorm: 222328 1.5 Tablet(s) PO daily 1/2 pill in AM and 1 pill at bedtime 08/22/2011 09/21/2011 Inactive diazepam 5 mg Tab RxNorm: 300341 1 Tablet(s) PO daily 1 tab bid prn 06/20/2011 09/20/2011 Inactive diazepam 5 mg Tab RxNorm: 429084 1 Tablet(s) PO daily 1 tab bid prn 06/20/2011 06/19/2011 Inactive diazepam 5 mg Tab RxNorm: 961568 1 Tablet(s) PO daily 1 tab bid prn 06/17/2011 06/19/2011 Inactive Lipitor 10 mg Tab RxNorm: 578998 1 Tablet(s) PO daily 05/31/2011 11/26/2011 Inactive diazepam 5 mg Tab RxNorm: 853380 1 Tablet(s) PO BID 1 tab bid prn 04/21/2011 05/20/2011 Inactive Calcium 600 + D(3) Oral RxNorm: Oral No Start Date Active Menest 0.625 mg Tab RxNorm: 596415 1 Tablet(s) PO daily No Start Date 06/16/2011 Inactive Synthroid 125 mcg tablet RxNorm: 575902 Tablet(s) PO No Start Date 09/09/2013 Inactive Ativan 1 mg tablet RxNorm: 719228 1 Tablet(s) PO Q6 PRN No Start Date 08/21/2011 Inactive aspirin 81 mg Tab, Delayed Release RxNorm: 3517115 1 Tablet(s) PO daily No Start Date 09/29/2013 Inactive Lexapro 10 mg Tab RxNorm: 836020 1 Tablet(s) PO daily No Start Date 08/22/2011 Inactive prednisone 10 mg tablets in a dose pack RxNorm: 094441 1 Tablet(s) PO No Start Date 02/13/2014 Inactive Synthroid 112 mcg Tab RxNorm: 140515 Tablet(s) PO tues/thurs/sat/sun No Start Date 10/20/2011 Inactive lorazepam 1 mg Tab RxNorm: 206923 Tablet(s) PO Q6 PRN No Start Date 11/04/2013 Inactive Lipitor 20 mg tablet RxNorm: 973575 1/2 Tablet(s) PO daily No Start Date 08/20/2012 Inactive Vitamin D2 oral RxNorm: oral No Start Date 09/29/2013 Inactive Synthroid 125 mcg Tab RxNorm: 623180 1 Tablet(s) PO No Start Date 10/20/2011 Inactive synthroid 112 mcg leopoldo osorio Medication Administered Medication Codes Instructions Start Date Status Kenalog 40 mg/mL suspension for injection RxNorm: 2786840 Milliliter 10/08/2018 No longer Active Kenalog 40 mg/mL suspension for injection RxNorm: 7229745 1Milliliter 09/11/2018 No longer Active Kenalog 40 mg/mL suspension for injection RxNorm: 4314674 1Milliliter 09/05/2016 No longer Active ceftriaxone 500 mg solution for injection RxNorm: 5107810 07/23/2015 No longer Active Kenalog 40 mg/mL suspension for injection RxNorm: 7207781 1Milliliter 02/11/2014 No longer Active Kenalog 40 mg/mL suspension for injection RxNorm: 8585363 Milliliter 01/21/2014 No longer Active Immunizations Vaccine [...] Pelvic and perineal pain ICD-10: R10.2 ICD-9: [id number] 02/16/2017 Acute vaginitis ICD-10: N76.0 ICD-9: 623.5 [...] Ord30 C/HDL 3.0 Ratio 11/26/2018 Free T4 Yrq733 FREE T4 0.98 ng/dL 11/26/2018 Cbc With [...] 29.6 pg 11/26/2018 Cbc With Differential Ord2 [place]% 7.7 % 11/26/2018 Cbc With Differential Ord2 [...] 1.41 K/ul 11/26/2018 Cbc With Differential Ord2 [place] ABS# 0.5 K/ul 11/26/2018 Cbc With Differential Ord2 Eos ABS# 0.2 K/ul 11/26/2018 Cbc With Differential Ord2 Baso ABS# 0.1 K/ul 11/26/2018 Comp Metabolic Qvn304 NA 140 mEq/L 11/26/2018 Comp Metabolic Von852 K 4.4 mEq/L 11/26/2018 Comp Metabolic Gsl175 CL 104 mEq/L 11/26/2018 Comp Metabolic Wsp093 CO2 28.0 mEq/L 11/26/2018 Comp Metabolic Eom624 ANION GAP 12 11/26/2018 Comp Metabolic Cgy754 GLUCOSE 91 mg/dL 11/26/2018 Comp Metabolic Scn048 Creat 0.9 mg/dL 11/26/2018 Comp Metabolic Xrd099 eGFR 66 ml/min/1.73m2 11/26/2018 Comp Metabolic Zot311 BUN 15 mg/dL 11/26/2018 Comp Metabolic Fxm272 B/C Ratio 16.7 Ratio 11/26/2018 Comp Metabolic Qzq214 CALCIUM 9.3 mg/dL 11/26/2018 Comp Metabolic Jtz010 ALK PHOS 81 U/L 11/26/2018 Comp Metabolic Cqk751 AST(SGOT) 14 U/L 11/26/2018 Comp Metabolic Bnq474 ALT(SGPT) 12 U/L 11/26/2018 Comp Metabolic Coq115 BILI T 0.7 mg/dL 11/26/2018 Comp Metabolic Rpz694 ALBUMIN 4.1 g/dL 11/26/2018 Comp Metabolic Qrb861 TPRO 6.7 g/dL 11/26/2018 Comp Metabolic Wha577 GLOB 2.6 g/dL 11/26/2018 Comp Metabolic Zjx448 A/G Ratio 1.5 Ratio 11/26/2018 Comp Metabolic Gbw743 Osmo 280 mOsmo 11/26/2018 Tsh Ord6 TSH [...] 29.7 pg 11/23/2017 Cbc With Differential Ord2 [place]% 9.0 % 11/23/2017 Cbc With Differential Ord2 [...] 1.77 K/ul 11/23/2017 Cbc With Differential Ord2 [place] ABS# 0.6 K/ul 11/23/2017 Cbc With Differential Ord2 Eos ABS# 0.2 K/ul 11/23/2017 Cbc With Differential Ord2 Baso ABS# 0.0 K/ul 11/23/2017 Tsh Ord6 TSH (3rd IS) 0.17 uIU/mL 11/23/2017 Free T4 Uir159 FREE T4 1.10 ng/dL 11/23/2017 Comp Metabolic Dul976 NA 142 mEq/L 11/23/2017 Comp Metabolic Dom933 K 4.4 mEq/L 11/23/2017 Comp Metabolic Vrh357 CL 109 mEq/L 11/23/2017 Comp Metabolic Aos301 CO2 28.0 mEq/L 11/23/2017 Comp Metabolic Hnd454 ANION GAP 9 11/23/2017 Comp Metabolic Uzk427 GLUCOSE 106 mg/dL 11/23/2017 Comp Metabolic Bep867 Creat 0.9 mg/dL 11/23/2017 Comp Metabolic Slf236 eGFR 68 ml/min/1.73m2 11/23/2017 Comp Metabolic Nsj798 BUN 17 mg/dL 11/23/2017 Comp Metabolic Ihw339 B/C Ratio 19.3 Ratio 11/23/2017 Comp Metabolic Yjj133 CALCIUM 9.0 mg/dL 11/23/2017 Comp Metabolic Hqz226 ALK PHOS 65 U/L 11/23/2017 Comp Metabolic Dkp295 AST(SGOT) 18 U/L 11/23/2017 Comp Metabolic Hia337 ALT(SGPT) 16 U/L 11/23/2017 Comp Metabolic Qvg513 BILI T 0.5 mg/dL 11/23/2017 Comp Metabolic Fzh770 ALBUMIN 4.2 g/dL 11/23/2017 Comp Metabolic Ero133 TPRO 6.5 g/dL 11/23/2017 Comp Metabolic Rub288 GLOB 2.3 g/dL 11/23/2017 Comp Metabolic Vek199 A/G Ratio 1.8 Ratio 11/23/2017 Comp Metabolic Yjy840 Osmo 285 mOsmo 11/23/2017 Lipid Ord30 CHOL [...] hTSH II 4.83 uIU/mL 06/07/2017 Comp Metabolic Oni018 NA 141 mEq/L 06/07/2017 Comp Metabolic Tpe847 K 4.3 mEq/L 06/07/2017 Comp Metabolic Oje464 CL 106 mEq/L 06/07/2017 Comp Metabolic Ayo128 CO2 26.0 mEq/L 06/07/2017 Comp Metabolic Kky486 ANION GAP 13 06/07/2017 Comp Metabolic Xea622 GLUCOSE 93 mg/dL 06/07/2017 Comp Metabolic Qdw324 Creat 0.9 mg/dL 06/07/2017 Comp Metabolic Bfg411 eGFR 65 ml/min/1.73m2 06/07/2017 Comp Metabolic Umd011 BUN 10 mg/dL 06/07/2017 Comp Metabolic Kuc926 B/C Ratio 11.0 Ratio 06/07/2017 Comp Metabolic Cse906 CALCIUM 8.9 mg/dL 06/07/2017 Comp Metabolic Svb715 ALK PHOS 69 U/L 06/07/2017 Comp Metabolic Oei591 AST(SGOT) 18 U/L 06/07/2017 Comp Metabolic Qku747 ALT(SGPT) 15 U/L 06/07/2017 Comp Metabolic Oqg947 BILI T 0.5 mg/dL 06/07/2017 Comp Metabolic Gjp163 ALBUMIN 4.1 g/dL 06/07/2017 Comp Metabolic Rfy029 TPRO 6.5 g/dL 06/07/2017 Comp Metabolic Zoe971 GLOB 2.4 g/dL 06/07/2017 Comp Metabolic Dfz884 A/G Ratio 1.7 Ratio 06/07/2017 Comp Metabolic Xfj879 Osmo 280 mOsmo 06/07/2017 Cbc With Differential [...] 30.7 pg 06/07/2017 Cbc With Differential Ord2 [place]% 9.1 % 06/07/2017 Cbc With Differential Ord2 [...] 1.62 K/ul 06/07/2017 Cbc With Differential Ord2 [place] ABS# 0.5 K/ul 06/07/2017 Cbc With Differential Ord2 Eos ABS# 0.2 K/ul 06/07/2017 Cbc With Differential Ord2 Baso ABS# 0.0 K/ul 06/07/2017 Free T4 Arl587 FREE T4 0.92 ng/dL 06/07/2017 Tsh Ord6 hTSH II 1.07 uIU/mL 11/17/2016 Free T4 Tfy646 FREE T4 1.02 ng/dL 11/17/2016 Lipid Ord30 CHOL 195 mg/dL 10/13/2016 Lipid Ord30 HDL 68.0 mg/dl 10/13/2016 Lipid Ord30 TRIG 69 mg/dL 10/13/2016 Lipid Ord30 LDL 113 mg/dL 10/13/2016 Lipid Ord30 C/HDL 2.9 Ratio 10/13/2016 Comp Metabolic Yop165 NA 138 mEq/L 10/13/2016 Comp Metabolic Bff138 K 4.4 mEq/L 10/13/2016 Comp Metabolic Cki419 CL 102 mEq/L 10/13/2016 Comp Metabolic Nin290 CO2 29.0 mEq/L 10/13/2016 Comp Metabolic Zyi288 ANION GAP 11 10/13/2016 Comp Metabolic Mqz891 GLUCOSE 85 mg/dL 10/13/2016 Comp Metabolic Fbv614 Creat 1.0 mg/dL 10/13/2016 Comp Metabolic Ppw564 eGFR 59 ml/min/1.73m2 10/13/2016 Comp Metabolic Xhz515 BUN 21 mg/dL 10/13/2016 Comp Metabolic Zuf097 B/C Ratio 21.2 Ratio 10/13/2016 Comp Metabolic Sce115 CALCIUM 9.7 mg/dL 10/13/2016 Comp Metabolic Mxq983 ALK PHOS 70 U/L 10/13/2016 Comp Metabolic Nij940 AST(SGOT) 17 U/L 10/13/2016 Comp Metabolic Jsf229 ALT(SGPT) 14 U/L 10/13/2016 Comp Metabolic Chb144 BILI T 0.9 mg/dL 10/13/2016 Comp Metabolic Zgk674 ALBUMIN 4.4 g/dL 10/13/2016 Comp Metabolic Cbr694 TPRO 7.1 g/dL 10/13/2016 Comp Metabolic Ucx970 GLOB 2.7 g/dL 10/13/2016 Comp Metabolic Qhe509 A/G Ratio 1.6 Ratio 10/13/2016 Comp Metabolic Fdz432 Osmo 278 mOsmo 10/13/2016 Cbc With Differential [...] 29.7 pg 10/13/2016 Cbc With Differential Ord2 [place]% 7.7 % 10/13/2016 Cbc With Differential Ord2 [...] 1.43 K/ul 10/13/2016 Cbc With Differential Ord2 [place] ABS# 0.5 K/ul 10/13/2016 Cbc With Differential Ord2 Eos ABS# 0.1 K/ul 10/13/2016 Cbc With Differential Ord2 Baso ABS# 0.0 K/ul 10/13/2016 Free T4 Rrr490 FREE T4 1.31 ng/dL 08/17/2016 Tsh Ord6 hTSH II 0.64 uIU/mL 08/17/2016 Free T4 Dut641 FREE T4 1.49 ng/dL 05/10/2016 Comp Metabolic Eam947 NA 139 mEq/L 05/10/2016 Comp Metabolic Tlf932 K 4.5 mEq/L 05/10/2016 Comp Metabolic Ujm957 CL 104 mEq/L 05/10/2016 Comp Metabolic Wkm368 CO2 24.0 mEq/L 05/10/2016 Comp Metabolic Jvu729 ANION GAP 16 05/10/2016 Comp Metabolic Kkn911 GLUCOSE 87 mg/dL 05/10/2016 Comp Metabolic Bjs403 Creat 0.9 mg/dL 05/10/2016 Comp Metabolic Bmr239 eGFR 71 ml/min/1.73m2 05/10/2016 Comp Metabolic Dhl054 BUN 12 mg/dL 05/10/2016 Comp Metabolic Fcv902 B/C Ratio 14.1 Ratio 05/10/2016 Comp Metabolic Tdg790 CALCIUM 9.6 mg/dL 05/10/2016 Comp Metabolic Vej604 ALK PHOS 89 U/L 05/10/2016 Comp Metabolic Bmt839 AST(SGOT) 17 U/L 05/10/2016 Comp Metabolic Dtg470 ALT(SGPT) 17 U/L 05/10/2016 Comp Metabolic Ecl165 BILI T 0.9 mg/dL 05/10/2016 Comp Metabolic Iwo744 ALBUMIN 4.2 g/dL 05/10/2016 Comp Metabolic Ozm933 TPRO 6.7 g/dL 05/10/2016 Comp Metabolic Wrn238 GLOB 2.5 g/dL 05/10/2016 Comp Metabolic Uwx485 A/G Ratio 1.7 Ratio 05/10/2016 Comp Metabolic Pfz561 Osmo 277 mOsmo 05/10/2016 Cbc With Differential [...] 29.1 pg 05/10/2016 Cbc With Differential Ord2 [place]% 8.3 % 05/10/2016 Cbc With Differential Ord2 [...] 1.57 K/ul 05/10/2016 Cbc With Differential Ord2 [place] ABS# 0.6 K/ul 05/10/2016 Cbc With Differential Ord2 Eos ABS# 0.2 K/ul 05/10/2016 Cbc With Differential Ord2 Baso ABS# 0.0 K/ul 05/10/2016 Tsh Ord6 hTSH II 0.03 uIU/mL 05/10/2016 Free T4 Jyx201 FREE T4 1.67 ng/dL 02/18/2016 Tsh Ord6 hTSH II 0.06 uIU/mL 02/18/2016 Comp Metabolic Ofp748 NA 138 mEq/L 02/18/2016 Comp Metabolic Qyw254 K 4.5 mEq/L 02/18/2016 Comp Metabolic Rci843 CL 104 mEq/L 02/18/2016 Comp Metabolic Tjy081 CO2 26.0 mEq/L 02/18/2016 Comp Metabolic Ltz085 ANION GAP 13 02/18/2016 Comp Metabolic Mav460 GLUCOSE 88 mg/dL 02/18/2016 Comp Metabolic Yot952 Creat 0.9 mg/dL 02/18/2016 Comp Metabolic Yls674 eGFR 69 ml/min/1.73m2 02/18/2016 Comp Metabolic Bmo332 BUN 14 mg/dL 02/18/2016 Comp Metabolic Vpr472 B/C Ratio 16.1 Ratio 02/18/2016 Comp Metabolic Txu335 CALCIUM 9.4 mg/dL 02/18/2016 Comp Metabolic Yvh526 ALK PHOS 95 U/L 02/18/2016 Comp Metabolic Fuv207 AST(SGOT) 19 U/L 02/18/2016 Comp Metabolic Fiw972 ALT(SGPT) 18 U/L 02/18/2016 Comp Metabolic Goy499 BILI T 0.7 mg/dL 02/18/2016 Comp Metabolic Qxo783 ALBUMIN 4.4 g/dL 02/18/2016 Comp Metabolic Afz540 TPRO 6.9 g/dL 02/18/2016 Comp Metabolic Eww921 GLOB 2.5 g/dL 02/18/2016 Comp Metabolic Cth522 A/G Ratio 1.7 Ratio 02/18/2016 Comp Metabolic Nxm537 Osmo 276 mOsmo 02/18/2016 Lipid Ord30 CHOL [...] 28.9 pg 02/18/2016 Cbc With Differential Ord2 [place]% 10.5 % 02/18/2016 Cbc With Differential Ord2 [...] 1.08 K/ul 02/18/2016 Cbc With Differential Ord2 [place] ABS# 0.6 K/ul 02/18/2016 Cbc With Differential Ord2 Eos ABS# 0.0 K/ul 02/18/2016 Cbc With Differential Ord2 Baso ABS# 0.0 K/ul 02/18/2016 Comp Metabolic Wao658 NA 136 mEq/L 06/08/2015 Comp Metabolic Ryy733 K 3.9 mEq/L 06/08/2015 Comp Metabolic Gov255 CL 103 mEq/L 06/08/2015 Comp Metabolic Lgn052 CO2 25.0 mEq/L 06/08/2015 Comp Metabolic Ktg330 ANION GAP 12 06/08/2015 Comp Metabolic Dwe382 GLUCOSE 91 mg/dL 06/08/2015 Comp Metabolic Cnp006 Creat 0.9 mg/dL 06/08/2015 Comp Metabolic Qny370 eGFR 68 ml/min/1.73m2 06/08/2015 Comp Metabolic Gzw828 BUN 10 mg/dL 06/08/2015 Comp Metabolic Lwi392 B/C Ratio 11.4 Ratio 06/08/2015 Comp Metabolic Hwi660 CALCIUM 9.4 mg/dL 06/08/2015 Comp Metabolic Kzd888 ALK PHOS 88 U/L 06/08/2015 Comp Metabolic Div459 AST(SGOT) 20 U/L 06/08/2015 Comp Metabolic Kwm486 ALT(SGPT) 18 U/L 06/08/2015 Comp Metabolic Lnq162 BILI T 0.8 mg/dL 06/08/2015 Comp Metabolic Jph402 ALBUMIN 4.4 g/dL 06/08/2015 Comp Metabolic Axo808 TPRO 7.0 g/dL 06/08/2015 Comp Metabolic Jjr629 GLOB 2.6 g/dL 06/08/2015 Comp Metabolic Sby492 A/G Ratio 1.7 Ratio 06/08/2015 Comp Metabolic Ees014 Osmo 271 mOsmo 06/08/2015 Tsh Ord6 hTSH [...] Ord2 RDW 14.4 % 06/08/2015 LYME EIA [id number] LYME EIA 0.24 04/25/2014 TULAREM AB [id number] TULAREM AB <1:20 04/24/2014 RMSF IFA [id number] IGG RMSF <1:16 04/24/2014 RMSF IFA [id number] IGM RMSF <1:10 04/24/2014 E CHAFF AB [id number] IGG E CHFF <1:16 04/24/2014 E CHAFF AB [id number] IGM E CHFF <1:10 04/24/2014 ICT OCCULT [id number] ICT OCCULT NEG 10/11/2013 Review of Systems [...] (positive) 02/21/2018 None Full Exam - General [facility] Constitutional general appearance Overall: well developed 11/28/2017 [...] J3301 09/11/2018 URINALYSIS NONAUTO W/O SCOPE CPT-4: 51381 05/07/2018 ADMIN INFLUENZA VIRUS VAC CPT-4: G0008 04/24/2018 FLU VACC PRSV FREE INC ANTIG CPT-4: 46714 04/24/2018 PPPS, SUBSEQ VISIT CPT- 4: G0439 11/28/2017 ADMIN INFLUENZA VIRUS VAC CPT-4: G0008 06/07/2017 FLU VACC PRSV FREE INC ANTIG CPT-4: 18764 06/07/2017 PPPS, SUBSEQ VISIT CPT- 4: G0439 11/17/2016 TRIAMCINOLONE ACET INJ NOS CPT-4: J3301 09/05/2016 PPPS, SUBSEQ VISIT CPT- 4: G0439 11/13/2015 PNEUMOCOCCAL VACC 13 STEPHANIE IM Formatting Model/CDA Sections, Assigned to/Lila Colon CT: 43356468 CPT-4: 96042Nuzrdou 11/13/2015 ADMIN PNEUMOCOCCAL VACCINE SNOMED CT: 29042278 CPT-4: G0009 11/13/2015 ROCEPHIN, PER 250 MG CPT- 4: J0696 07/23/2015 URINALYSIS NONAUTO W/O SCOPE CPT-4: 34886 10/10/2014 ROUTINE VENIPUNCTURE CPT- 4: 45378 04/23/2014 Pneumococcal Polysaccharide Vaccine, 23-Valent, Ad CPT-4: 60292 04/15/2014 ADMIN INFLUENZA VIRUS VAC CPT-4: G0008 04/15/2014 FLU VAC NO PRSV 4 STEPHANIE 3 YRS+ CPT-4: 65347 04/15/2014 ADMIN PNEUMOCOCCAL VACCINE SNOMED CT: 07099531 CPT-4: G0009 04/15/2014 THER/PROPH/DIAG INJ SC/IM CPT-4: 92149 02/11/2014 TRIAMCINOLONE ACET INJ NOS CPT-4: J3301 02/11/2014 TRIAMCINOLONE ACET INJ NOS CPT-4: J3301 01/21/2014 INITIAL PREVENTIVE EXAM CPT-4: G0402 09/30/2013 PRESCRIP TRANSMIT VIA ERX SY CPT-4: G8553 03/13/2013 Vital Signs Date Vital 12/04/2018 Blood Pressure 1: 130/78 Code: 8480-6 BMI: 28.1 Code: 77300-9 Heart Rate 1: 80 bpm Height: 5'5" SpO2: 97% Weight: 169 lbs 11/28/2018 Blood Pressure 1: 132/74 Code: 8480-6 BMI: 28.1 Code: 82011-1 Heart Rate 1: 73 bpm Height: 5'5" SpO2: 94% Waist Measure (cm): 97 cm Weight: 169 lbs 10/08/2018 Blood Pressure 1: 140/82 Code: 8480-6 Heart Rate 1: 80 bpm Height: 5'5" SpO2: 95% Temperature: 37.0 (C) / 98.6 (F) Weight: 09/11/2018 Blood Pressure 1: 114/76 Code: 8480-6 BMI: 29.3 Code: 01152-8 Heart Rate 1: 80 bpm Height: 5'5" SpO2: 95% Temperature: 36.3 (C) / 97.3 (F) Weight: 176 lbs 07/12/2018 Blood Pressure 1: 126/76 Code: 8480-6 BMI: 29.3 Code: 23099-6 Heart Rate 1: 70 bpm Height: 5'5" SpO2: 96% Weight: 176 lbs 05/07/2018 Blood Pressure 1: 118/72 Code: 8480-6 BMI: 29.5 Code: 44718-2 Heart Rate 1: 71 bpm Height: 5'5" SpO2: 98% Weight: 177 lbs 02/21/2018 Blood Pressure 1: 120/78 Code: 8480-6 BMI: 29.0 Code: 43246-6 Heart Rate 1: 68 bpm Height: 5'5" SpO2: 96% Weight: 174 lbs 11/28/2017 Blood Pressure 1: 122/98 Code: 8480-6 BMI: 31.0 Code: 48697-7 Heart Rate 1: 89 bpm Height: 5'5" SpO2: 98% Waist Measure (cm): 91 cm Weight: 186 lbs 08/29/2017 Blood Pressure 1: 146/80 Code: 8480-6 BMI: 29.5 Code: 56956-5 Heart Rate 1: 68 bpm Height: 5'5" SpO2: 98% Temperature: 36.6 (C) / 97.8 (F) Weight: 177 lbs 06/13/2017 Blood Pressure 1: 138/76 Code: 8480-6 BMI: 29.6 Code: 41522-8 Heart Rate 1: 63 bpm Height: 5'5" SpO2: 95% Weight: 178 lbs 02/16/2017 Blood Pressure 1: 128/80 Code: 8480-6 BMI: 29.9 Code: 55604-7 Heart Rate 1: 77 bpm Height: 5'5" SpO2: 96% Weight: 179 lbs 8 oz 02/06/2017 Blood Pressure 1: 140/80 Code: 8480-6 BMI: 29.8 Code: 96080-3 Heart Rate 1: 72 bpm Height: 5'5" SpO2: 97% Weight: 179 lbs 11/17/2016 Blood Pressure 1: 130/72 Code: 8480-6 BMI: 29.6 Code: 90742-0 Heart Rate 1: 62 bpm Height: 5'5" SpO2: 98% Waist Measure (cm): 91 cm Weight: 178 lbs 10/12/2016 Blood Pressure 1: 128/78 Code: 8480-6 BMI: 28.5 Code: 44130-1 Heart Rate 1: 62 bpm Height: 5'5" SpO2: 97% Weight: 171 lbs 09/05/2016 Blood Pressure 1: 122/70 Code: 8480-6 BMI: 28.0 Code: 18084-0 Heart Rate 1: 65 bpm Height: 5'5" SpO2: 94% Weight: 168 lbs 06/21/2016 Blood Pressure 1: 120/82 Code: 8480-6 BMI: 28.3 Code: 31540-5 Heart Rate 1: 65 bpm Height: 5'5" SpO2: 97% Weight: 170 lbs 05/24/2016 Blood Pressure 1: 136/80 Code: 8480-6 BMI: 28.1 Code: 08167-5 Heart Rate 1: 71 bpm Height: 5'5" SpO2: 96% Weight: 169 lbs 05/10/2016 Blood Pressure 1: 120/82 Code: 8480-6 BMI: 27.6 Code: 74022-3 Heart Rate 1: 86 bpm Height: 5'5" SpO2: 95% Weight: 166 lbs 05/03/2016 Blood Pressure 1: 124/78 Code: 8480-6 BMI: 28.1 Code: 16785-6 Heart Rate 1: 88 bpm Height: 5'5" SpO2: 97% Weight: 169 lbs 11/13/2015 Blood Pressure 1: 130/60 Code: 8480-6 BMI: 30.0 Code: 01909-4 Heart Rate 1: 7 bpm Height: 5'5" Waist Measure (cm): 97 cm Weight: 180 lbs 07/23/2015 Blood Pressure 1: 124/70 Code: 8480-6 BMI: 29.6 Code: 82691-1 Heart Rate 1: 74 bpm Height: 5'5" SpO2: 96% Temperature: 36.7 (C) / 98.1 (F) Weight: 178 lbs 07/06/2015 Blood Pressure 1: 138/78 Code: 8480-6 BMI: 29.6 Code: 97618-9 Heart Rate 1: 84 bpm Height: 5'5" SpO2: 96% Weight: 178 lbs 05/26/2015 Blood Pressure 1: 122/80 Code: 8480-6 BMI: 29.6 Code: 81026-5 Heart Rate 1: 84 bpm Height: 5'5" Weight: 178 lbs 02/16/2015 Blood Pressure 1: 124/82 Code: 8480-6 BMI: 29.0 Code: 12050-1 Heart Rate 1: 68 bpm Height: 5'5" Weight: 174 lbs 12/10/2014 Blood Pressure 1: 112/64 Code: 8480-6 BMI: 28.6 Code: 98544-1 Heart Rate 1: 80 bpm Height: 5'5" Weight: 172 lbs 10/16/2014 Blood Pressure 1: 128/84 Code: 8480-6 Heart Rate 1: 64 bpm Weight: 172 lbs 10/09/2014 Blood Pressure 1: 136/90 Code: 8480-6 BMI: 28.6 Code: 38178-7 Heart Rate 1: 76 bpm Height: 5'5" Weight: 172 lbs 08/26/2014 Blood Pressure 1: 118/72 Code: 8480-6 BMI: 29.0 Code: 78861-2 Heart Rate 1: 76 bpm Height: 5'5" Weight: 174 lbs 05/16/2014 Blood Pressure 1: 110/72 Code: 8480-6 BMI: 29.0 Code: 77107-5 Height: 5'5" Weight: 174 lbs 04/23/2014 Blood Pressure 1: 124/70 Code: 8480-6 BMI: 29.0 Code: 65994-3 Heart Rate 1: 72 bpm Height: 5'5" Weight: 174 lbs 04/15/2014 Temperature: 36.5 (C) / 97.7 (F) 01/21/2014 Blood Pressure 1: 98/62 Code: 8480-6 BMI: 29.0 Code: 91284- 5 Heart Rate 1: 84 bpm Height: 5'5" Temperature: 37.1 (C) / 98.7 (F) Weight: 174 lbs 12/05/2013 Blood Pressure 1: 138/88 Code: 8480-6 BMI: 29.0 Code: 31351-8 Heart Rate 1: 60 bpm Height: 5'5" Weight: 174 lbs 11/05/2013 Blood Pressure 1: 118/80 Code: 8480-6 BMI: 28.8 Code: 32249-8 Heart Rate 1: 76 bpm Height: 5'5" Weight: 173 lbs 10/15/2013 Blood Pressure 1: 120/78 Code: 8480-6 BMI: 29.1 Code: 34708-7 Heart Rate 1: 88 bpm Height: 5'5" Weight: 175 lbs 09/30/2013 Blood Pressure 1: 112/84 Code: 8480-6 BMI: 29.1 Code: 82231-1 Heart Rate 1: 68 bpm Height: 5'5" Weight: 175 lbs 03/13/2013 Blood Pressure 1: 112/84 Code: 8480-6 BMI: 28.6 Code: 22343-2 Heart Rate 1: 64 bpm Height: 5'5" Weight: 173 lbs 10/04/2012 Blood Pressure 1: 120/72 Code: 8480-6 BMI: 28.0 Code: 11179-5 Heart Rate 1: 64 bpm Height: 5'5" Weight: 169 lbs 08/22/2011 Blood Pressure 1: 134/84 Code: 8480-6 BMI: 27.5 Code: 88967-1 Heart Rate 1: 68 bpm Height: 5'5" Respiratory Rate: 16 bpm Weight: 166 lbs 8 oz 06/17/2011 Blood Pressure 1: 120/76 Code: 8480-6 BMI: 27.0 Code: 13978-3 Heart Rate 1: 58 bpm Height: 5'5" [...] neck, initial encounter[ICD10: S10.96XA] Suma Alvarado MD, [facility] CPT-4: 92318 12/04/2018 ([id number]) 55717 EST. PATIENT, LEVEL III Diagnosis: Cough[ICD10: R05] Diagnosis: Acute bronchitis, unspecified[ICD10: J20.9] Suma Alvarado MD, [facility] CPT-4: 06087 10/08/2018 ([id number]) 52194 EST. PATIENT, LEVEL III Diagnosis: Cough[ICD10: R05] Diagnosis: Acute recurrent maxillary sinusitis[ICD10: J01.01] Suma Alvarado MD, [facility] CPT-4: 34082 09/11/2018 10654 EST. PATIENT, LEVEL III Diagnosis: Pain in right hand[ICD10: M79.641] Gina Alvarado MD, [facility] CPT-4: 19220 07/12/2018 ([id number]) 65574 EST. PATIENT, LEVEL II Diagnosis: Dysuria[ICD10: R30.0] Suma Alvarado MD, [facility] CPT-4: 95874 05/07/2018 49144 EST. PATIENT, LEVEL IV Diagnosis: Tinnitus, bilateral[ICD10: H93.13] Diagnosis: Other allergic rhinitis[ICD10: J30.89] Gina Alvarado MD, [facility] CPT- 4: 04123 02/21/2018 93631 EST. PATIENT, LEVEL III Diagnosis: Acute laryngopharyngitis[ICD10: J06.0] Diagnosis: Other allergic rhinitis[ICD10: J30.89] Gina Alvarado MD, [facility] CPT- 4: 78275 08/29/2017 ([id number]) 66929 EST. PATIENT, LEVEL IV Diagnosis: Postprocedural hypothyroidism[ICD10: E89.0] Diagnosis: Major depressive disorder, recurrent, moderate[ICD10: F33.1] Diagnosis: Generalized anxiety disorder[ICD10: F41.1] Elina Alvarado MD, [facility] CPT-4: 56734 06/13/2017 ([id number]) 91789 EST. PATIENT, LEVEL IV Diagnosis: Pelvic and perineal pain[ICD10: R10.2] Diagnosis: Acute vaginitis[ICD10: N76.0] Suma Alvarado MD, [facility] CPT-4: 40028 02/16/2017 ([id number]) 68340 EST. PATIENT, LEVEL III Diagnosis: Postprocedural hypothyroidism[ICD10: E89.0] Diagnosis: Major depressive disorder, recurrent, moderate[ICD10: F33.1] Elina Alvarado MD, [facility] CPT-4: 70008 02/06/2017 ([id number]) 04520 EST. PATIENT, LEVEL III Diagnosis: Generalized anxiety disorder[ICD10: F41.1] Elina Alvarado MD [facility] CPT-4: 50313 10/12/2016 ([id number]) 92459 EST. PATIENT, LEVEL III Diagnosis: Cough[ICD10: R05] Diagnosis: Acute upper respiratory infection, unspecified[ICD10: J06.9] Suma Alvarado MD, [facility] CPT-4: 16998 09/05/2016 ([id number]) 07106 EST. PATIENT, LEVEL III Diagnosis: Generalized anxiety disorder[ICD10: F41.1] Diagnosis: Major depressive disorder, recurrent, moderate[ICD10: F33.1] Diagnosis: Postprocedural hypothyroidism[ICD10: E89.0] Elina Alvarado MD, [facility] CPT-4: 07886 06/21/2016 ([id number]) 62791 EST. PATIENT, LEVEL III Diagnosis: Major depressive disorder, recurrent, moderate[ICD10: F33.1] Elina Alvarado MD [facility] CPT-4: 77428 05/24/2016 ([id number]) 81197 EST. PATIENT, LEVEL III Diagnosis: Major depressive disorder, recurrent, moderate[ICD10: F33.1] Elina Alvarado MD [facility] CPT-4: 64227 05/10/2016 ([id number]) 89878 EST. PATIENT, LEVEL III Diagnosis: Generalized anxiety disorder[ICD10: F41.1] Diagnosis: Major depressive disorder, recurrent, moderate[ICD10: F33.1] Suma Alvarado MD [facility] CPT-4: 02153 05/03/2016 ([id number]) 49446 EST. PATIENT, LEVEL III Diagnosis: Cough[ICD10: R05] Diagnosis: Acute upper respiratory infection, unspecified[ICD10: J06.9] Suma Alvarado MD, [facility] CPT-4: 65765 07/23/2015 ([id number]) 74883 EST. PATIENT, LEVEL III Diagnosis: Hypothyroidism, unspecified[ICD10: E03.9] Diagnosis: Generalized anxiety disorder[ICD10: F41.1] Diagnosis: Other depressive episodes[ICD10: F32.8] Elina Alvarado MD, [facility] CPT-4: 84468 07/06/2015 ([id number]) 74759 EST. PATIENT, LEVEL IV Diagnosis: Generalized anxiety disorder[ICD10: F41.1] Diagnosis: Major depressive disorder, recurrent, unspecified[ICD10: F33.9] Elina Alvarado MD, [facility] CPT-4: 96310 05/26/2015 ([id number]) 96862 EST. PATIENT, LEVEL II Diagnosis: 2Nd degree burn of multiple fingers of right hand not including thumb[ICD9: 944.23] Suma Alvarado MD, [facility] CPT-4: 97315 02/16/2015 ([id number]) 27782 EST. PATIENT, LEVEL IV Diagnosis: Hammertoe[ICD9: 735.4] Diagnosis: Foot pain[ICD9: 729.5] Diagnosis: HYPOTHYROIDISM[ICD9: 244.9] Elina Alvarado MD, [facility] CPT-4: 84324 12/10/2014 ([id number]) 57034 EST. PATIENT, LEVEL III Diagnosis: Urinary incontinence[ICD9: 788.30] Diagnosis: Pelvic pain in female[ICD9: 625.9] Elina Alvarado MD, [facility] CPT- 4: 54440 10/16/2014 ([id number]) 15320 EST. PATIENT, LEVEL III Diagnosis: Urinary incontinence[ICD9: 788.30] Diagnosis: Pelvic pain in female[ICD9: 625.9] Suma Alvarado MD, [facility] CPT- 4: 64816 10/09/2014 ([id number]) 27676 EST. PATIENT, LEVEL III Diagnosis: HYPOTHYROIDISM[ICD9: 244.9] Elina Alvarado MD, [facility] CPT-4: 90068 08/26/2014 ([id number]) 12942 EST. PATIENT, LEVEL III Diagnosis: Neck pain[ICD9: 723.1] Diagnosis: Muscle tension headache[ICD9: 307.81] Suma Alvarado MD, [facility] CPT-4: 09791 05/16/2014 ([id number]) 79550 EST. PATIENT, LEVEL IV Diagnosis: Arthropod bite[ICD9: 919.4] Diagnosis: Poison gilmer dermatitis[ICD9: 692.6] Diagnosis: Arthralgia[ICD9: 719.40] Diagnosis: Myalgia[ICD9: 729.1] Elina Alvarado MD, [facility] CPT-4: 96682 04/23/2014 ([id number]) 61234 EST. PATIENT, LEVEL III Diagnosis: ACUTE URI[ICD9: 465.9] Diagnosis: COUGH[ICD9: 786.2] Suma Alvarado MD, [facility] CPT-4: 96407 01/21/2014 ([id number]) 63154 EST. PATIENT, LEVEL III Diagnosis: HYPOTHYROIDISM[ICD9: 244.9] Diagnosis: GENERALIZED ANXIETY DISEASE[ICD9: 300.02] Elina Alvarado MD, [facility] CPT-4: 00883 12/05/2013 ([id number]) 49550 EST. PATIENT, LEVEL III Diagnosis: GENERALIZED ANXIETY DISEASE[ICD9: 300.02] Diagnosis: DEPRESSIVE DISORDER NEC[ICD9: 311] RUBIA Alex MD CPT- 4: 23168 11/05/2013 ([id number]) 94041 EST. PATIENT, LEVEL III Diagnosis: HYPOTHYROIDISM[ICD9: 244.9] RUBIA Alex MD CPT-4: 29795 10/15/2013 ([id number]) Miscellaneous no charge Diagnosis: Colon cancer screening[ICD9: V76.51] RUBIA Alex MD CPT- 4: 13547 10/10/2013 ([id number]) 38358 EST. PATIENT, LEVEL IV Diagnosis: HYPOTHYROIDISM[ICD9: 244.9] Diagnosis: DEPRESSIVE DISORDER NEC[ICD9: 311] Diagnosis: GENERALIZED ANXIETY DISEASE[ICD9: 300.02] Diagnosis: HYPERLIPIDEMIA[ICD9: 272.4] RUBIA Alex MD CPT-4: 61646 03/13/2013 ([id number]) 67340 EST. PATIENT, LEVEL IV Diagnosis: HYPERLIPIDEMIA[ICD9: 272.4] Diagnosis: HYPOTHYROIDISM[ICD9: 244.9] Diagnosis: GENERALIZED ANXIETY DISEASE[ICD9: 300.02] Diagnosis: DEPRESSIVE DISORDER NEC[ICD9: 311] Elina Alvarado MD [facility] CPT- 4: 18136 10/04/2012 ([id number]) 41473 EST. PATIENT, LEVEL III Diagnosis: VICTOR HUGO (generalized anxiety disorder)[ICD9: 300.02] Diagnosis: Chronic depression[ICD9: 311] Elina Alvarado MD [facility] CPT-4: 55590 08/22/2011 52418 EST. PATIENT, LEVEL IV Diagnosis: CHEST PAIN NEC[ICD9: 786.59] Diagnosis: HYPERLIPIDEMIA[ICD9: 272.4] Diagnosis: POSTSURGICAL HYPOTHYROIDISM[ICD9: 244.0] Elina Alvarado MD, [facility] CPT-4: 38155 06/17/2011 Plan of Care Planned Activity Notes Codes Status Date Referral: Greg Murcia HPtel:[phone] [facility] [place] Patient has been informed. Referral info faxed. Completed 12/24/2018 Visit Plan: Tick Bite - pt given script for treatment of infected tick bite, call for symptoms of worsening infection or nonhealing. 12/04/2018 Patient Education: Patient Medication Summary Completed [...] care surrogate. 11/28/2018 Appointment: Gina Kern WPtel: [facility] - Annual Wellness Visit 11/28/2018 Patient Education: Patient Medication Summary Completed 11/28/2018 Care Plan: Referral Order SNOMED-CT : [id number] Pending 11/28/2018 Visit Plan: Bronchitis - acute case of bronchitis identified. Pt has been given antibiotics, breathing treatments as appropriate, and pt has been instructed to call if symptoms are not improved, or if symptoms acutely worsen. 10/08/2018 Appointment: Suma Choi WPtel: [address] [place], [place] [phone] (30 min) Complex 10/08/2018 Patient Education: Patient Medication Summary Completed 10/08/2018 Visit Plan: Sinusitis - Pt has acute infection - pain in face, maxillary region, Pt informed to use decongestant, RX given to patient, sinus rinses also recommended. Call if symptoms do not show improvement. 09/11/2018 Appointment: Suma Choi WPtel: [facility]4 [phone] (15 min) Moderate 09/11/2018 Patient Education: Patient Medication Summary Completed 09/11/2018 Visit Plan: Right hand pain - ongoing - will send for x-ray - The pt is to use prn antiinflammatories to manage acute pain. The patient is to call the office if the pain is worsening or does not improve. 07/12/2018 Appointment: Gina Kern WPtel: [facility]4 [facility] (15 min) Moderate 07/12/2018 Patient Education: Patient Medication Summary Completed 07/12/2018 Care Plan: X-RAY EXAM OF HAND LOINC : 57749-5 Pending 07/12/2018 Visit Plan: Dysuria- UA negative -symptoms resolved -instructed patient to continue with adequate fluid intake and call if symptoms return. Patient verbalized understanding of plan. 05/07/2018 Appointment: Suma Choi WPtel: [facility]1 [phone] [place] (15 min) Moderate 05/07/2018 Patient Education: Patient Medication Summary Completed 05/07/2018 Appointment: Injection 04/24/2018 Patient Education: Patient Medication Summary Completed 04/24/2018 Referral: [facility] Referral Completed 03/22/2018 Visit Plan: Allergies - [...] hearing testing 02/21/2018 Appointment: Gina Kern WPtel: [facility] [place] (15 min) Moderate 02/21/2018 Patient Education: Patient Medication Summary Completed 02/21/2018 Care Plan: Referral Order SNOMED-CT : [id number] Pending 02/21/2018 Appointment: Elina Alvarado WPtel: [facility]7 [facility] [place] (15 min) Moderate 12/14/2017 Visit Plan: Medicare [...] Summary Completed 11/28/2017 Appointment: Gina Kern WPtel: [facility] [facility] - Annual Wellness Visit 11/21/2017 Visit Plan: [...] allergy spray. 08/29/2017 Appointment: G[facility] Kern WPtel[facility] [phone] [facility] (15 min) Moderate 08/29/2017 Patient Education: [...] with counseling. 06/13/2017 Appointment: Elina Alvarado WPtel: [phone] [facility] (15 min) Moderate 06/13/2017 Patient Education: Patient Medication Summary Completed 06/13/2017 Appointment: Injection 06/07/2017 Patient Education: Patient Medication Summary Completed 06/07/2017 Visit Plan: Pelvic pain-UA negative-pap done today in the office- will start patient on flagyl for bacterial vaginosis-instructed patient to call if symptoms do not resolve or if any worse. Patient verbalized understanding of plan. 02/16/2017 Appointment: Suma Choi WPtel: [phone] [phone] [place] (30 min) Complex 02/16/2017 Patient Education: [...] medications. 02/06/2017 Appointment: [facility]el[facility] [phone] [facility] [place] (15 min) Moderate 02/06/2017 Patient Education: [...] paperwork for health care surrogate. 11/17/2016 Appointment: iGna Kern WPtel: [facility]6 [facility] [place] [address] - Annual Wellness Visit 11/17/2016 Patient Education: [...] current medications. 10/12/2016 Appointment: Elina Alvarado WPtel: [facility]1 [facility] (15 min) Moderate 10/12/2016 Patient Education: [...] : J06.9 09/05/2016 Appointment: Suma Choi WPtel: [facility]3 [phone] (10 min) Simple 09/05/2016 Patient Education: Patient [...] lexapro 06/21/2016 Appointment: Elina Alvarado WPtel: [phone] [facility] (15 min) Moderate 06/21/2016 Patient Education: Patient Medication Summary Completed 06/21/2016 Visit Plan: Depression - improved with lexapro - continue with current treatment and counseling. 05/24/2016 Appointment: Elina Alvarado WPtel: [phone] [facility] (15 min) Moderate 05/24/2016 Patient Education: Patient Medication Summary Completed 05/24/2016 Visit Plan: Depression - improved on the Lexapro - stop ativan - start on xanax 05/10/2016 Appointment: Elina Alvarado WPtel: [phone] [facility] [place] (15 min) Moderate 05/10/2016 Patient Education: [...] Completed 05/03/2016 Appointment: Suma Choi WPtel: [phone] [phone] [place] (15 min) Moderate 02/26/2016 Visit Plan: [...] and to maintain independece in the home. Mweltrxogp-cohmxgvydtiw-jhgatj to wellbutrin Pneumonia 13 administered today in [...] and to maintain independece in the home. Qeiakivwub-irpfiygptabt-nlqmtd to wellbutrin Pneumonia 13 administered today in the office 11/13/2015 Appointment: [facility] - Annual Wellness Visit 11/13/2015 Patient Education: Patient Medication Summary Completed 11/13/2015 Patient Education: Obesity Completed 11/13/2015 Care Plan: SCREENINGMAMMOGRAPHYDIGITAL LOINC : 50200-0 Ordered 11/13/2015 Appointment: Lab Draw 08/10/2015 Visit [...] medications. 07/06/2015 Appointment: Elina Alvarado WPtel[facility] [phone] [facility] (30 min) Complex 07/06/2015 Patient Education: [...] Patient Medication Summary Completed 02/16/2015 Visit Plan: Laurenertoe - Foot pain - pt to have surgery on 12/15/14, Dr. Reinoso to take pt to surgery - Pt is medically cleared for surgical intervention on her foot. Pt has chronic hypothyroidism, depression and anxiety - needs to continue her medications upon discharge. 12/10/2014 Appointment: Elina Alvarado WPtel: [facility]5 [facility] Surgical Clearance 12/10/2014 Patient Education: Patient Medication Summary Completed 12/10/2014 Visit Plan: Urinary incontinence and Pelvic discomfort - recommended pt to have evaluation by Dr. Brandt - pt agreeable to referral. Pt is to call if abdominal pain does not improve. 10/16/2014 Appointment: Elina Alvarado WPtel: [facility]5 [facility] Follow up 10/16/2014 Patient Education: Patient Medication Summary Completed 10/16/2014 Care Plan: Referral Order SNOMED-CT : [id number] Ordered 10/16/2014 Patient Education: Patient Medication Summary Completed 10/10/2014 Visit Plan: Pelvic pain-history of mesh implant-recommend CT abd/pelvis to evaluate for any abnormality-refer to Dr Woods if pain does not improve Urinary incontinence-check UA with C&S if indicated 10/09/2014 Patient Education: Patient Medication Summary Completed 10/09/2014 Care Plan: CT ABD & PELV > [facility] : 23043-5 Ordered 10/09/2014 Visit Plan: Hypothyroidism - pt with chronic hypothyroidism, continue with current medication, will monitor pt to signs or symptoms of lack of adequate supplementation. Pt is to continue with current dose of medication unless directed otherwise. Check labs at regular intervals wither q 3 months or q 6 months based on previous levels of control. 08/26/2014 Appointment: Elina Alvarado WPtel: [address] [place], [place] [phone] Follow up 08/26/2014 Patient Education: Patient Medication [...] with screening. 04/23/2014 Appointment: Elina Alvarado WPtel: [address] [place], [place] [phone] Sick 04/23/2014 Patient Education: Patient Medication Summary Completed 04/23/2014 Care Plan: Referral Order SNOMED-CT : [id number] Ordered 04/23/2014 Appointment: Nurse Visit 04/15/2014 Patient Education: Patient Medication Summary Completed 04/15/2014 Appointment: Elina Alvarado WPtel: [address] [place], [place] [phone] Injection 02/11/2014 Patient Education: Patient Medication Summary [...] treatment. 12/05/2013 Appointment: Elina Alvarado WPtel: [phone] [facility] Follow up 12/05/2013 Patient Education: Patient Medication [...] above medications. 11/05/2013 Appointment: Elina Alvarado WPtel: [facility]9 [facility] Follow up 11/05/2013 Patient Education: Patient Medication [...] control. 10/15/2013 Appointment: Elina Alvarado WPtel: [phone] [facility] [facility] 10/15/2013 Patient Education: Patient Medication [...] care surrogate. 09/30/2013 Appointment: Elina Alvarado WPtel: [phone] [facility] [facility] - Initial Preventive Physical Exam 09/30/2013 Patient Education: Patient Medication Summary Completed 09/30/2013 Appointment: Elina Alvarado WPtel: [phone] [id number] [facility] - Initial Preventive Physical Exam 09/11/2013 Visit [...] prn use. 03/13/2013 App[facility]ment: [id number] Follow up 03/13/2013 Patient Education: Patient [...] current medications. 10/04/2012 Appointment: Elina Alvarado WPtel: [phone] [place], [place] [id number] Follow up 10/04/2012 Patient Education: Patient Medication [...] attacks. 08/22/2011 [facility]ment[id number] Other 08/22/2011 Patient Education: Patient Medication Summary [...] ULTRASOUND 06/17/2011 Appointment: Elina Alvarado WPtel: [phone] [id number] Other 06/17/2011 Patient Education: Patient Medication Summary Completed 06/17/2011 Referral: Raimundo Brandt WPtel: Referral Appointment Requested Referral: Greg Murcia HPtel:[phone] [id number] Referral Initiated Referral: [facility] Referral Initiated Referral: Dr. Phelps WPtel: Referral Initiated Instructions Comment . Medicare Exam - today we discussed [...] to continue her medications upon discharge. . Neck pain-muscle tightness-recommend anti inflammatories as [...] for symptoms of worsening infection or nonhealing. . Hyperlipidemia - pt has been counseled [...] situational exposure. No change in current medications. mucinex twice daily -drink lots of water flonase nasal spray kenalog injection today zpack call if not better . Bronchitis - acute case of bronchitis identified. Pt has been given antibiotics, breathing treatments as appropriate, and pt has been instructed to call if symptoms are not improved, or if symptoms acutely worsen. . Sinusitis - Pt has acute infection - pain in face, maxillary region, Pt informed to use decongestant, RX given to patient, sinus rinses also recommended. Call if symptoms do not show improvement. STOP LEXAPRO START WELLBUTRIN 75MG TWICE DAILY [...] and to maintain independece in the home. Srycebqydj-rsefacucirml-wdjhtd to wellbutrin Pneumonia 13 administered today in the office BUSPIRONE 5MG 1/2 TAB TWICE DAILY . Anxiety and depression uncontrolled-Dr Alvarado in to evaluate patient-plan to add buspar 5mg 1/2 tab twice daily. Instructed patient to call if symptoms uncontrolled or do not improve. Pt is aware of the risks and benefits of treatment with the above medications. Patient verbalized understanding of plan. STOP LEXAPRO START WELLBUTRIN 75MG TWICE DAILY [...] and to maintain independece in the home. Nfahhnvgjh-poeucvrtftju-kfwvbp to wellbutrin Pneumonia 13 administered today in [...] exposure. No change in current medications. . Allergies - chronic - recommended pt [...] refer to ENT for hearing testing . Hypothyroidism - pt with chronic hypothyroidism, [...] benefits of treament with the above medications. schedule well woman [...] CONTINUE WITH CURRENT MEDICATIONS, CHECH THYROID ULTRASOUND Pap Repeat UA if painful urination persists [...]
--- OUTSIDE RECORDS SUMMARY | 2018-12-27 09:20 | XMS REPORT | CCD ---
Author Author [facility] Organization [facility] Address [address] [place] [address] Phone Care Team Providers Care Financial Reporting Specialist Name Role Phone PP Unavailable CCM Unavailable Summary Purpose Interface Exchange Insurance Providers Payer name Policy type / Coverage type Covered libertarian ID Effective Begin Date Effective End Date WPS Medicare Part B [id number] 2018 Unknown [facility] [id number] Unknown Family history Grandmother Diagnosis Age At [...] Description Effective Dates Tobacco history SNOMED CT: 8202220 Former smoker quit 2 years ago, social smoker, 1 pack per month 200709/30/2013 Employment Unknown 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 Marital status Unknown 06/17/[address]: 253064 Currently drinks alcohol 2 beers/week 06/17/2011 Has [...] Status Onset Date Resolved Date Encounter for general adult medical examination with [...] 02/16/2017 Unknown Pelvic and perineal pain ICD-9: [id number] ICD-10: R10.2 Active 02/16/2017 Unknown Hypothyroidism, unspecified [...] Codes Effective Dates Condition Status Encounter for general adult medical examination with [...] 02/16/2017 Active Pelvic and perineal pain ICD-9: [id number] ICD-10: R10.2 02/16/2017 Active Hypothyroidism, unspecified ICD-9: [...] Start Date Stop Date Status Fill Instructions Zithromax Z-Que 250 mg tablet RxNorm: 244719 1 Tablet(s) PO UD 10/08/2018 10/12/2018 Inactive Kenalog 40 mg/mL suspension for injection RxNorm: 2307995 Milliliter(s) Inj 10/08/2018 10/08/2018 Inactive Xanax 0.5 mg tablet RxNorm: 740557 1 Tablet(s) PO QID as needed anxiety 09/24/2018 11/21/2018 Inactive Kenalog 40 mg/mL suspension for injection RxNorm: 8712770 1 Milliliter(s) Inj 09/11/2018 09/11/2018 Inactive Augmentin 875 mg-125 mg tablet RxNorm: 112241 1 Tablet(s) PO BID 09/11/2018 09/17/2018 Inactive naproxen 500 mg tablet RxNorm: 547972 1 Tablet(s) PO BID 07/12/2018 07/16/2018 Inactive Synthroid 112 mcg tablet RxNorm: 452212 TAKE ONE TABLET BY MOUTH DAILY 07/02/2018 12/28/2018 Active Lipitor 10 mg tablet RxNorm: 662808 TAKE ONE TABLET BY MOUTH EVERY DAY 06/06/2018 05/31/2019 Active Lexapro 20 mg tablet RxNorm: 211003 TAKE ONE TABLET BY MOUTH DAILY 05/08/2018 12/03/2018 Active Synthroid 100 mcg tablet RxNorm: 822487 TAKE ONE TABLET BY MOUTH EVERY OTHER DAY 04/10/2018 10/06/2018 Inactive Synthroid 100 mcg tablet RxNorm: 688196 1 Tablet(s) PO every other day 12/11/2017 04/09/2018 Inactive QOD -alternate with 112mcg DISPENSE BRAND NAME Synthroid 112 mcg tablet RxNorm: 844570 1 Tablet(s) every other day 11/28/2017 03/27/2018 Inactive QOD alternate with 100mcg Synthroid 100 mcg tablet RxNorm: 678402 1 Tablet(s) PO every other day 11/28/2017 12/10/2017 Inactive QOD -alternate with 112mcg DISPENSE BRAND NAME Synthroid 100 mcg tablet RxNorm: 271083 1 Tablet(s) PO every other day 11/28/2017 11/27/2017 Inactive QOD -alternate with 112mcg Xanax 0.5 mg tablet RxNorm: 575858 1 Tablet(s) PO QID as needed anxiety 11/14/2017 01/11/2018 Inactive Lexapro 20 mg tablet RxNorm: 271289 TAKE ONE TABLET BY MOUTH DAILY 11/13/2017 05/07/2018 Inactive Xanax 0.5 mg tablet RxNorm: 400850 1 Tablet(s) PO QID as needed anxiety 09/11/2017 11/08/2017 Inactive Tamiflu 75 mg capsule RxNorm: 352012 1 Capsule(s) PO BID 08/29/2017 09/02/2017 Inactive Synthroid 112 mcg tablet RxNorm: 970169 1 Tablet(s) daily 08/14/2017 11/27/2017 Inactive fyi - medication changed, refill x 6 - #30 pills Synthroid 112 mcg tablet RxNorm: 203829 1 Tablet(s) daily 06/13/2017 08/13/2017 Inactive fyi - medication changed, refill x 6 - #30 pills Lexapro 20 mg tablet RxNorm: 854773 TAKE ONE TABLET BY MOUTH DAILY 06/09/2017 11/05/2017 Inactive Synthroid 112 mcg tablet RxNorm: 030844 TAKE 1 TABLET BY MOUTH DAILY EXCEPT TAKE 1/2 TABLET ON MONDAY, MONDAY, AND Monday05/22/2017 06/12/2017 Inactive Lipitor 10 mg tablet RxNorm: 318306 TAKE ONE TABLET BY MOUTH EVERY DAY 03/08/2017 05/31/2018 Inactive Flagyl 500 mg tablet RxNorm: 713731 1 Tablet(s) PO TID 02/16/2017 02/22/2017 Inactive Xanax 0.5 mg tablet RxNorm: 098567 1 Tablet(s) PO QID as needed anxiety 12/23/2016 03/21/2017 Inactive Synthroid 112 mcg tablet RxNorm: 454172 TAKE 1 TABLET BY MOUTH DAILY EXCEPT FOR TAKE 1/2 TABLET ON MONDAY, MONDAY, AND Monday12/23/2016 04/13/2017 Inactive Lexapro 20 mg tablet RxNorm: 082432 TAKE ONE TABLET BY MOUTH DAILY 11/29/2016 05/27/2017 Inactive Zithromax Z-Que 250 mg tablet RxNorm: 961089 1 Tablet(s) PO UD 09/05/2016 09/09/2016 Inactive zpack Kenalog 40 mg/mL suspension for injection RxNorm: 9491955 1 Milliliter(s) Inj 09/05/2016 09/05/2016 Inactive Lipitor 10 mg tablet RxNorm: 874145 TAKE ONE TABLET BY MOUTH EVERY DAY 08/30/2016 02/25/2017 Inactive Ativan 1 mg tablet RxNorm: 565549 1 Tablet(s) PO Q6 PRN as needed TAKE ONE TABLET BY MOUTH THREE TIMES A DAY OR EVERY 6 HOURS NEEDED FOR ANXIETY 08/30/2016 12/22/2016 Inactive Synthroid 112 mcg tablet RxNorm: 004244 1 Tablet(s) PO daily except one-half tab on Mon/Mon/Sat 08/23/2016 12/12/2016 Inactive will refill when needed Lexapro 20 mg tablet RxNorm: 508861 TAKE ONE TABLET BY MOUTH DAILY 08/02/2016 11/28/2016 Inactive Synthroid 112 mcg tablet RxNorm: 721417 1 Tablet(s) PO daily except 1/2 tab mon and sat 05/25/2016 08/22/2016 Inactive will refill when needed Xanax 0.5 mg tablet RxNorm: 989232 1 Tablet(s) PO QID as needed anxiety 05/10/2016 08/29/2016 Inactive Lexapro 20 mg tablet RxNorm: 292230 1 Tablet(s) PO daily 05/03/2016 07/31/2016 Inactive 1/2 tab x 1 week then increase to a full pill daily buspirone 5 mg tablet RxNorm: 387382 TAKE ONE-HALF TABLET BY MOUTH TWICE A DAY 03/15/2016 05/02/2016 Inactive Synthroid 112 mcg tablet RxNorm: 927463 1 Tablet(s) PO daily 02/25/2016 05/24/2016 Inactive Ativan 1 mg tablet RxNorm: 894232 Tablet(s) TAKE ONE TABLET BY MOUTH THREE TIMES A DAY OR EVERY 6 HOURS NEEDED FOR ANXIETY 02/04/2016 05/08/2016 Inactive Synthroid 125 mcg tablet RxNorm: 452064 TAKE ONE TABLET BY MOUTH TWICE WEEKLY 01/11/2016 02/24/2016 Inactive Synthroid 112 mcg tablet RxNorm: 138925 TAKE ONE TABLET BY MOUTH FIVE DAYS A WEEK 01/11/2016 02/24/2016 Inactive Wellbutrin 75 mg tablet RxNorm: 241348 TAKE ONE TABLET BY MOUTH TWICE A DAY 01/11/2016 05/02/2016 Inactive Ativan 1 mg tablet RxNorm: 292878 TAKE ONE TABLET BY MOUTH THREE TIMES A DAY OR EVERY 6 HOURS NEEDED 12/03/2015 12/27/2015 Inactive Lipitor 10 mg tablet RxNorm: 772262 TAKE ONE TABLET BY MOUTH EVERY DAY 12/03/2015 08/28/2016 Inactive Ativan 1 mg tablet RxNorm: 586631 Tablet(s) TAKE ONE TABLET BY MOUTH THREE TIMES A DAY AND TAKE ONE TABLET BY MOUTH EVERY 6 HOURS NEEDED FOR ANXIETY 12/03/2015 12/02/2015 Inactive (Response to an electronic controlled substance refill request - RxReferenceNumber: [id number]) Wellbutrin 75 mg tablet RxNorm: 880007 1 Tablet(s) PO BID 11/13/2015 01/10/2016 Inactive Ativan 1 mg tablet RxNorm: 295183 Tablet(s) TAKE ONE TABLET BY MOUTH THREE TIMES A DAY AND TAKE ONE TABLET BY MOUTH EVERY 6 HOURS NEEDED FOR ANXIETY 09/23/2015 10/30/2015 Inactive (Response to an electronic controlled substance refill request - RxReferenceNumber: [id number]) buspirone 5 mg tablet RxNorm: 710349 TAKE ONE-HALF TABLET BY MOUTH TWICE A DAY 08/18/2015 03/01/2016 Inactive ceftriaxone 500 mg solution for injection RxNorm: 9920656 Inj 07/23/2015 07/23/2015 Inactive Zithromax Z-Que 250 mg tablet RxNorm: 727606 1 Tablet(s) PO UD 07/23/2015 07/27/2015 Inactive ZPACK buspirone 5 mg tablet RxNorm: 045618 1 Tablet(s) PO daily 07/06/2015 11/27/2018 Inactive buspirone 5 mg tablet RxNorm: 185292 1/2 Tablet(s) PO BID 05/26/2015 07/05/2015 Inactive Lipitor 10 mg tablet RxNorm: 184971 TAKE ONE TABLET BY MOUTH EVERY DAY 04/23/2015 10/19/2015 Inactive Ativan 1 mg tablet RxNorm: 227498 Tablet(s) TAKE ONE TABLET BY MOUTH THREE TIMES A DAY AND TAKE ONE TABLET BY MOUTH EVERY 6 HOURS NEEDED FOR ANXIETY 02/23/2015 04/01/2015 Inactive (Response to an electronic controlled substance refill request - RxReferenceNumber: [id number]) Synthroid 125 mcg tablet RxNorm: 298208 1 Tablet(s) PO UD twice weekly 12/10/2014 06/07/2015 Inactive Synthroid 112 mcg tablet RxNorm: 133047 1 Tablet(s) PO UD TAKE ONE TABLET BY MOUTH 5 days a week 12/10/2014 12/04/2015 Inactive Lexapro 20 mg tablet RxNorm: 407733 1 Tablet(s) PO daily 11/26/2014 11/12/2015 Inactive Lipitor 10 mg tablet RxNorm: 065363 TAKE ONE TABLET BY MOUTH EVERY DAY 10/21/2014 04/18/2015 Inactive amoxicillin 500 mg capsule RxNorm: 872648 1 Capsule(s) PO TID 10/15/2014 10/21/2014 Inactive take probiotic BID x 7 days during abt period amoxicillin 500 mg capsule RxNorm: 216959 1 Capsule(s) PO TID 10/15/2014 10/14/2014 Inactive take probiotic BID x 7 days during abt period Ativan 1 mg tablet RxNorm: 289030 TAKE ONE TABLET BY MOUTH THREE TIMES A DAY AND TAKE ONE TABLET BY MOUTH EVERY 6 HOURS NEEDED FOR ANXIETY 08/21/2014 09/28/2014 Inactive (Response to an electronic controlled substance refill request - RxReferenceNumber: [id number]) Ativan 1 mg tablet RxNorm: 255293 1 Tablet(s) PO tid and Q6 PRN as needed 08/18/2014 08/21/2014 Inactive doxycycline hyclate 100 mg tablet RxNorm: 380833 1 Tablet(s) PO BID 04/23/2014 05/25/2015 Inactive prednisone 10 mg tablets in a dose pack RxNorm: 314829 1 Tablet(s) PO 02/14/2014 05/25/2015 Inactive Kenalog 40 mg/mL suspension for injection RxNorm: 2647750 1 Milliliter(s) Inj 02/11/2014 02/11/2014 Inactive Keflex 500 mg capsule RxNorm: 467514 1 Capsule(s) PO TID 01/21/2014 01/27/2014 Inactive Kenalog 40 mg/mL suspension for injection RxNorm: 6298875 Milliliter(s) Inj 01/21/2014 01/21/2014 Inactive Synthroid 112 mcg tablet RxNorm: 627643 1 Tablet(s) PO daily TAKE ONE TABLET BY MOUTH EVERY DAY 12/05/2013 11/29/2014 Inactive Ativan 1 mg tablet RxNorm: 692280 1 Tablet(s) PO Q6 PRN 11/05/2013 02/02/2014 Inactive Lexapro 20 mg tablet RxNorm: 857786 1 Tablet(s) PO daily 11/05/2013 11/04/2013 Inactive Lexapro 20 mg tablet RxNorm: 996018 1 Tablet(s) PO daily 11/05/2013 10/30/2014 Inactive Lipitor 10 mg tablet RxNorm: 686402 1 Tablet(s) PO QPM TAKE ONE TABLET BY MOUTH EVERY DAY 09/30/2013 10/20/2014 Inactive Lexapro 20 mg tablet RxNorm: 889882 1 Tablet(s) PO daily 09/30/2013 11/04/2013 Inactive Synthroid 125 mcg tablet RxNorm: 566451 1 Tablet(s) PO daily 09/10/2013 12/04/2013 Inactive Synthroid 100 mcg tablet RxNorm: 472238 1 Tablet(s) PO daily TAKE ONE TABLET BY MOUTH EVERY DAY 09/06/2013 09/09/2013 Inactive Lipitor 10 mg tablet RxNorm: 646194 Tablet(s) PO TAKE ONE TABLET BY MOUTH EVERY DAY 08/15/2013 09/29/2013 Inactive Synthroid 100 mcg tablet RxNorm: 482644 1 Tablet(s) PO daily TAKE ONE TABLET BY MOUTH EVERY DAY 04/26/2013 09/05/2013 Inactive Ativan 1 mg tablet RxNorm: 553882 1 Tablet(s) PO Q6 PRN 03/13/2013 No Stop Date Active Synthroid 100 mcg tablet RxNorm: 737820 1 Tablet(s) PO daily TAKE ONE TABLET BY MOUTH EVERY DAY 03/13/2013 04/25/2013 Inactive Lexapro 20 mg tablet RxNorm: 741980 1/2 Tablet(s) PO BID 03/13/2013 09/29/2013 Inactive Synthroid 112 mcg tablet RxNorm: 319897 Tablet(s) PO TAKE ONE TABLET BY MOUTH EVERY DAY 01/08/2013 03/12/2013 Inactive Lexapro 20 mg tablet RxNorm: 291040 Tablet(s) PO TAKE 1/2 TABLET EVERY MORNING AND TAKE ONE TABLET BY MOUTH AT BEDTIME 10/18/2012 03/12/2013 Inactive Lipitor 20 mg tablet RxNorm: 136532 1/2 Tablet(s) PO daily 08/20/2012 02/04/2013 Inactive Lipitor 10 mg tablet RxNorm: 883091 1 Tablet(s) PO daily 05/23/2012 08/19/2012 Inactive Synthroid 112 mcg tablet RxNorm: 239862 1 Tablet(s) PO daily 12/16/2011 01/07/2013 Inactive Synthroid 112 mcg Tab RxNorm: 017632 1 Tablet(s) PO daily 12/16/2011 12/15/2011 Inactive Lipitor 10 mg tablet RxNorm: 889934 1 Tablet(s) PO daily 12/15/2011 05/22/2012 Inactive Synthroid 112 mcg Tab RxNorm: 674360 1 Tablet(s) PO every other day 11/09/2011 12/15/2011 Inactive every other day Synthroid 112 mcg Tab RxNorm: 590996 1 Tablet(s) PO every other day 10/21/2011 11/08/2011 Inactive every other day Synthroid 125 mcg Tab RxNorm: 560998 1 Tablet(s) PO every other day 10/21/2011 12/16/2011 Inactive every other day Lexapro 20 mg tablet RxNorm: 969472 1.5 Tablet(s) PO daily 1/2 pill in AM and 1 pill at bedtime 09/22/2011 04/18/2012 Inactive 1/2 q am 1 q hs diazepam 5 mg Tab RxNorm: 555298 1 Tablet(s) PO daily 1 tab bid prn 09/21/2011 05/17/2012 Inactive Lexapro 20 mg Tab RxNorm: 338670 1.5 Tablet(s) PO daily 1/2 pill in AM and 1 pill at bedtime 08/22/2011 09/21/2011 Inactive diazepam 5 mg Tab RxNorm: 001122 1 Tablet(s) PO daily 1 tab bid prn 06/20/2011 09/20/2011 Inactive diazepam 5 mg Tab RxNorm: 459859 1 Tablet(s) PO daily 1 tab bid prn 06/20/2011 06/19/2011 Inactive diazepam 5 mg Tab RxNorm: 278219 1 Tablet(s) PO daily 1 tab bid prn 06/17/2011 06/19/2011 Inactive Lipitor 10 mg Tab RxNorm: 671052 1 Tablet(s) PO daily 05/31/2011 11/26/2011 Inactive diazepam 5 mg Tab RxNorm: 840451 1 Tablet(s) PO BID 1 tab bid prn 04/21/2011 05/20/2011 Inactive Calcium 600 + D(3) Oral RxNorm: Oral No Start Date Active Menest 0.625 mg Tab RxNorm: 671371 1 Tablet(s) PO daily No Start Date 06/16/2011 Inactive Synthroid 125 mcg tablet RxNorm: 392560 Tablet(s) PO No Start Date 09/09/2013 Inactive Ativan 1 mg tablet RxNorm: 484196 1 Tablet(s) PO Q6 PRN No Start Date 08/21/2011 Inactive aspirin 81 mg Tab, Delayed Release RxNorm: 9611511 1 Tablet(s) PO daily No Start Date 09/29/2013 Inactive Lexapro 10 mg Tab RxNorm: 694974 1 Tablet(s) PO daily No Start Date 08/22/2011 Inactive prednisone 10 mg tablets in a dose pack RxNorm: 246249 1 Tablet(s) PO No Start Date 02/13/2014 Inactive Synthroid 112 mcg Tab RxNorm: 614912 Tablet(s) PO tues/thurs/sat/sun No Start Date 10/20/2011 Inactive lorazepam 1 mg Tab RxNorm: 718771 Tablet(s) PO Q6 PRN No Start Date 11/04/2013 Inactive Lipitor 20 mg tablet RxNorm: 631395 1/2 Tablet(s) PO daily No Start Date 08/20/2012 Inactive Vitamin D2 oral RxNorm: oral No Start Date 09/29/2013 Inactive Synthroid 125 mcg Tab RxNorm: 555026 1 Tablet(s) PO No Start Date 10/20/2011 Inactive synthroid 112 mcg e thur sat sun Medication Administered Medication Codes Instructions Start Date Status Kenalog 40 mg/mL suspension for injection RxNorm: 1881484 Milliliter 10/08/2018 No longer Active Kenalog 40 mg/mL suspension for injection RxNorm: 7238992 1Milliliter 09/11/2018 No longer Active Kenalog 40 mg/mL suspension for injection RxNorm: 9720524 1Milliliter 09/05/2016 No longer Active ceftriaxone 500 mg solution for injection RxNorm: 2535879 07/23/2015 No longer Active Kenalog 40 mg/mL suspension for injection RxNorm: 6151772 1Milliliter 02/11/2014 No longer Active Kenalog 40 mg/mL suspension for injection RxNorm: 3588503 Milliliter 01/21/2014 No longer Active Immunizations Vaccine Codes Date Status Influenza CVX: 141 04/24/2018 completed Influenza CVX: 141 06/07/2017 completed Pneumococcal (Adult) CVX: 133 11/13/2015 completed Influenza CVX: 141 04/15/2014 completed Pneumococcal (Adult) CVX: 33 04/15/2014 completed PPD Unknown 10/10/2013 completed Influenza CVX: 141 09/30/2013 completed Assessments Condition Codes Effective Dates Encounter for general adult medical examination with [...] Pelvic and perineal pain ICD-10: R10.2 ICD-9: [id number] 02/16/2017 Acute vaginitis ICD-10: N76.0 ICD-9: 623.5 [...] Visit Reason For Visit Effective Dates Notes Annual Medicare Wellness Exam 11/28/2018 cough 10/08/2018 [...] Ord30 C/HDL 3.0 Ratio 11/26/2018 Free T4 Nsy267 FREE T4 0.98 ng/dL 11/26/2018 Cbc With [...] 29.6 pg 11/26/2018 Cbc With Differential Ord2 [place]% 7.7 % 11/26/2018 Cbc With Differential Ord2 [...] 1.41 K/ul 11/26/2018 Cbc With Differential Ord2 [place] ABS# 0.5 K/ul 11/26/2018 Cbc With Differential Ord2 Eos ABS# 0.2 K/ul 11/26/2018 Cbc With Differential Ord2 Baso ABS# 0.1 K/ul 11/26/2018 Comp Metabolic Piw129 NA 140 mEq/L 11/26/2018 Comp Metabolic Ule126 K 4.4 mEq/L 11/26/2018 Comp Metabolic Hxh245 CL 104 mEq/L 11/26/2018 Comp Metabolic Cbs241 CO2 28.0 mEq/L 11/26/2018 Comp Metabolic Nnx188 ANION GAP 12 11/26/2018 Comp Metabolic Rec475 GLUCOSE 91 mg/dL 11/26/2018 Comp Metabolic Kcg833 Creat 0.9 mg/dL 11/26/2018 Comp Metabolic Cow931 eGFR 66 ml/min/1.73m2 11/26/2018 Comp Metabolic Wpf230 BUN 15 mg/dL 11/26/2018 Comp Metabolic Wbo981 B/C Ratio 16.7 Ratio 11/26/2018 Comp Metabolic Jeb293 CALCIUM 9.3 mg/dL 11/26/2018 Comp Metabolic Wgs676 ALK PHOS 81 U/L 11/26/2018 Comp Metabolic Nwn191 AST(SGOT) 14 U/L 11/26/2018 Comp Metabolic Pnh997 ALT(SGPT) 12 U/L 11/26/2018 Comp Metabolic Wbf526 BILI T 0.7 mg/dL 11/26/2018 Comp Metabolic Fkn118 ALBUMIN 4.1 g/dL 11/26/2018 Comp Metabolic Yqd292 TPRO 6.7 g/dL 11/26/2018 Comp Metabolic Ezs408 GLOB 2.6 g/dL 11/26/2018 Comp Metabolic Iis870 A/G Ratio 1.5 Ratio 11/26/2018 Comp Metabolic Ncz707 Osmo 280 mOsmo 11/26/2018 Tsh Ord6 TSH [...] 29.7 pg 11/23/2017 Cbc With Differential Ord2 [place]% 9.0 % 11/23/2017 Cbc With Differential Ord2 [...] 1.77 K/ul 11/23/2017 Cbc With Differential Ord2 [place] ABS# 0.6 K/ul 11/23/2017 Cbc With Differential Ord2 Eos ABS# 0.2 K/ul 11/23/2017 Cbc With Differential Ord2 Baso ABS# 0.0 K/ul 11/23/2017 Tsh Ord6 TSH (3rd IS) 0.17 uIU/mL 11/23/2017 Free T4 Yze972 FREE T4 1.10 ng/dL 11/23/2017 Comp Metabolic Ttt839 NA 142 mEq/L 11/23/2017 Comp Metabolic Pbh521 K 4.4 mEq/L 11/23/2017 Comp Metabolic Zwj992 CL 109 mEq/L 11/23/2017 Comp Metabolic Uew379 CO2 28.0 mEq/L 11/23/2017 Comp Metabolic Jdt854 ANION GAP 9 11/23/2017 Comp Metabolic Gmk665 GLUCOSE 106 mg/dL 11/23/2017 Comp Metabolic Vwo160 Creat 0.9 mg/dL 11/23/2017 Comp Metabolic Fuw797 eGFR 68 ml/min/1.73m2 11/23/2017 Comp Metabolic Jbd599 BUN 17 mg/dL 11/23/2017 Comp Metabolic Qqf210 B/C Ratio 19.3 Ratio 11/23/2017 Comp Metabolic Gck038 CALCIUM 9.0 mg/dL 11/23/2017 Comp Metabolic Aag520 ALK PHOS 65 U/L 11/23/2017 Comp Metabolic Pdm527 AST(SGOT) 18 U/L 11/23/2017 Comp Metabolic Mga237 ALT(SGPT) 16 U/L 11/23/2017 Comp Metabolic Qto133 BILI T 0.5 mg/dL 11/23/2017 Comp Metabolic Rfq866 ALBUMIN 4.2 g/dL 11/23/2017 Comp Metabolic Teo500 TPRO 6.5 g/dL 11/23/2017 Comp Metabolic Poj524 GLOB 2.3 g/dL 11/23/2017 Comp Metabolic Ypg088 A/G Ratio 1.8 Ratio 11/23/2017 Comp Metabolic Nxl694 Osmo 285 mOsmo 11/23/2017 Lipid Ord30 CHOL [...] hTSH II 4.83 uIU/mL 06/07/2017 Comp Metabolic Fkj620 NA 141 mEq/L 06/07/2017 Comp Metabolic Jrw655 K 4.3 mEq/L 06/07/2017 Comp Metabolic Nll481 CL 106 mEq/L 06/07/2017 Comp Metabolic Xxh362 CO2 26.0 mEq/L 06/07/2017 Comp Metabolic Xra213 ANION GAP 13 06/07/2017 Comp Metabolic Ahk633 GLUCOSE 93 mg/dL 06/07/2017 Comp Metabolic Die816 Creat 0.9 mg/dL 06/07/2017 Comp Metabolic Lfw167 eGFR 65 ml/min/1.73m2 06/07/2017 Comp Metabolic Vpj810 BUN 10 mg/dL 06/07/2017 Comp Metabolic Stn181 B/C Ratio 11.0 Ratio 06/07/2017 Comp Metabolic Exp451 CALCIUM 8.9 mg/dL 06/07/2017 Comp Metabolic Zyg453 ALK PHOS 69 U/L 06/07/2017 Comp Metabolic Ebf839 AST(SGOT) 18 U/L 06/07/2017 Comp Metabolic Tdl939 ALT(SGPT) 15 U/L 06/07/2017 Comp Metabolic Mgt974 BILI T 0.5 mg/dL 06/07/2017 Comp Metabolic Lzx270 ALBUMIN 4.1 g/dL 06/07/2017 Comp Metabolic Ghe105 TPRO 6.5 g/dL 06/07/2017 Comp Metabolic Ktu353 GLOB 2.4 g/dL 06/07/2017 Comp Metabolic Ruu976 A/G Ratio 1.7 Ratio 06/07/2017 Comp Metabolic Tde982 Osmo 280 mOsmo 06/07/2017 Cbc With Differential [...] 30.7 pg 06/07/2017 Cbc With Differential Ord2 [place]% 9.1 % 06/07/2017 Cbc With Differential Ord2 [...] 1.62 K/ul 06/07/2017 Cbc With Differential Ord2 [place] ABS# 0.5 K/ul 06/07/2017 Cbc With Differential Ord2 Eos ABS# 0.2 K/ul 06/07/2017 Cbc With Differential Ord2 Baso ABS# 0.0 K/ul 06/07/2017 Free T4 Jng130 FREE T4 0.92 ng/dL 06/07/2017 Tsh Ord6 hTSH II 1.07 uIU/mL 11/17/2016 Free T4 Mcq977 FREE T4 1.02 ng/dL 11/17/2016 Lipid Ord30 CHOL 195 mg/dL 10/13/2016 Lipid Ord30 HDL 68.0 mg/dl 10/13/2016 Lipid Ord30 TRIG 69 mg/dL 10/13/2016 Lipid Ord30 LDL 113 mg/dL 10/13/2016 Lipid Ord30 C/HDL 2.9 Ratio 10/13/2016 Comp Metabolic Mdj253 NA 138 mEq/L 10/13/2016 Comp Metabolic Nui270 K 4.4 mEq/L 10/13/2016 Comp Metabolic Ppu958 CL 102 mEq/L 10/13/2016 Comp Metabolic Saw477 CO2 29.0 mEq/L 10/13/2016 Comp Metabolic Dks542 ANION GAP 11 10/13/2016 Comp Metabolic Lru059 GLUCOSE 85 mg/dL 10/13/2016 Comp Metabolic Yjo587 Creat 1.0 mg/dL 10/13/2016 Comp Metabolic Epe917 eGFR 59 ml/min/1.73m2 10/13/2016 Comp Metabolic Dtw451 BUN 21 mg/dL 10/13/2016 Comp Metabolic Ywt315 B/C Ratio 21.2 Ratio 10/13/2016 Comp Metabolic Vbq385 CALCIUM 9.7 mg/dL 10/13/2016 Comp Metabolic Zjo162 ALK PHOS 70 U/L 10/13/2016 Comp Metabolic Gvi240 AST(SGOT) 17 U/L 10/13/2016 Comp Metabolic Sle275 ALT(SGPT) 14 U/L 10/13/2016 Comp Metabolic Uav522 BILI T 0.9 mg/dL 10/13/2016 Comp Metabolic Lfp680 ALBUMIN 4.4 g/dL 10/13/2016 Comp Metabolic Cex770 TPRO 7.1 g/dL 10/13/2016 Comp Metabolic Hgd761 GLOB 2.7 g/dL 10/13/2016 Comp Metabolic Otf440 A/G Ratio 1.6 Ratio 10/13/2016 Comp Metabolic Bmi775 Osmo 278 mOsmo 10/13/2016 Cbc With Differential [...] 29.7 pg 10/13/2016 Cbc With Differential Ord2 [place]% 7.7 % 10/13/2016 Cbc With Differential Ord2 [...] 1.43 K/ul 10/13/2016 Cbc With Differential Ord2 [place] ABS# 0.5 K/ul 10/13/2016 Cbc With Differential Ord2 Eos ABS# 0.1 K/ul 10/13/2016 Cbc With Differential Ord2 Baso ABS# 0.0 K/ul 10/13/2016 Free T4 Kpr644 FREE T4 1.31 ng/dL 08/17/2016 Tsh Ord6 hTSH II 0.64 uIU/mL 08/17/2016 Free T4 Yqt148 FREE T4 1.49 ng/dL 05/10/2016 Comp Metabolic Rvm415 NA 139 mEq/L 05/10/2016 Comp Metabolic Hvs242 K 4.5 mEq/L 05/10/2016 Comp Metabolic Bcb901 CL 104 mEq/L 05/10/2016 Comp Metabolic Ihv177 CO2 24.0 mEq/L 05/10/2016 Comp Metabolic Njq677 ANION GAP 16 05/10/2016 Comp Metabolic Rhq112 GLUCOSE 87 mg/dL 05/10/2016 Comp Metabolic Tzp118 Creat 0.9 mg/dL 05/10/2016 Comp Metabolic Jpc824 eGFR 71 ml/min/1.73m2 05/10/2016 Comp Metabolic Jgk415 BUN 12 mg/dL 05/10/2016 Comp Metabolic Umw782 B/C Ratio 14.1 Ratio 05/10/2016 Comp Metabolic Cmh664 CALCIUM 9.6 mg/dL 05/10/2016 Comp Metabolic Cjc030 ALK PHOS 89 U/L 05/10/2016 Comp Metabolic Ybg348 AST(SGOT) 17 U/L 05/10/2016 Comp Metabolic Rhr091 ALT(SGPT) 17 U/L 05/10/2016 Comp Metabolic Vbu667 BILI T 0.9 mg/dL 05/10/2016 Comp Metabolic Mjn073 ALBUMIN 4.2 g/dL 05/10/2016 Comp Metabolic Hfy688 TPRO 6.7 g/dL 05/10/2016 Comp Metabolic Sil815 GLOB 2.5 g/dL 05/10/2016 Comp Metabolic Fyo582 A/G Ratio 1.7 Ratio 05/10/2016 Comp Metabolic Zxi703 Osmo 277 mOsmo 05/10/2016 Cbc With Differential [...] 29.1 pg 05/10/2016 Cbc With Differential Ord2 [place]% 8.3 % 05/10/2016 Cbc With Differential Ord2 [...] 1.57 K/ul 05/10/2016 Cbc With Differential Ord2 [place] ABS# 0.6 K/ul 05/10/2016 Cbc With Differential Ord2 Eos ABS# 0.2 K/ul 05/10/2016 Cbc With Differential Ord2 Baso ABS# 0.0 K/ul 05/10/2016 Tsh Ord6 hTSH II 0.03 uIU/mL 05/10/2016 Free T4 Hhp822 FREE T4 1.67 ng/dL 02/18/2016 Tsh Ord6 hTSH II 0.06 uIU/mL 02/18/2016 Comp Metabolic His983 NA 138 mEq/L 02/18/2016 Comp Metabolic Snq452 K 4.5 mEq/L 02/18/2016 Comp Metabolic Jdh806 CL 104 mEq/L 02/18/2016 Comp Metabolic Iay733 CO2 26.0 mEq/L 02/18/2016 Comp Metabolic Yys433 ANION GAP 13 02/18/2016 Comp Metabolic Vlv377 GLUCOSE 88 mg/dL 02/18/2016 Comp Metabolic Woy348 Creat 0.9 mg/dL 02/18/2016 Comp Metabolic Deh226 eGFR 69 ml/min/1.73m2 02/18/2016 Comp Metabolic Sjc635 BUN 14 mg/dL 02/18/2016 Comp Metabolic Ksj712 B/C Ratio 16.1 Ratio 02/18/2016 Comp Metabolic Imh093 CALCIUM 9.4 mg/dL 02/18/2016 Comp Metabolic Ctz252 ALK PHOS 95 U/L 02/18/2016 Comp Metabolic Ije338 AST(SGOT) 19 U/L 02/18/2016 Comp Metabolic Scj934 ALT(SGPT) 18 U/L 02/18/2016 Comp Metabolic Hdp503 BILI T 0.7 mg/dL 02/18/2016 Comp Metabolic Ojz903 ALBUMIN 4.4 g/dL 02/18/2016 Comp Metabolic Kdh836 TPRO 6.9 g/dL 02/18/2016 Comp Metabolic Hpu205 GLOB 2.5 g/dL 02/18/2016 Comp Metabolic Vhi769 A/G Ratio 1.7 Ratio 02/18/2016 Comp Metabolic Ene588 Osmo 276 mOsmo 02/18/2016 Lipid Ord30 CHOL [...] 28.9 pg 02/18/2016 Cbc With Differential Ord2 [place]% 10.5 % 02/18/2016 Cbc With Differential Ord2 [...] 1.08 K/ul 02/18/2016 Cbc With Differential Ord2 [place] ABS# 0.6 K/ul 02/18/2016 Cbc With Differential Ord2 Eos ABS# 0.0 K/ul 02/18/2016 Cbc With Differential Ord2 Baso ABS# 0.0 K/ul 02/18/2016 Comp Metabolic Qia861 NA 136 mEq/L 06/08/2015 Comp Metabolic Pmi995 K 3.9 mEq/L 06/08/2015 Comp Metabolic Yso034 CL 103 mEq/L 06/08/2015 Comp Metabolic Gxo659 CO2 25.0 mEq/L 06/08/2015 Comp Metabolic Yni974 ANION GAP 12 06/08/2015 Comp Metabolic Kma958 GLUCOSE 91 mg/dL 06/08/2015 Comp Metabolic Yin238 Creat 0.9 mg/dL 06/08/2015 Comp Metabolic Otn497 eGFR 68 ml/min/1.73m2 06/08/2015 Comp Metabolic Dpz784 BUN 10 mg/dL 06/08/2015 Comp Metabolic Opn287 B/C Ratio 11.4 Ratio 06/08/2015 Comp Metabolic Mar966 CALCIUM 9.4 mg/dL 06/08/2015 Comp Metabolic Ohg893 ALK PHOS 88 U/L 06/08/2015 Comp Metabolic Cxk932 AST(SGOT) 20 U/L 06/08/2015 Comp Metabolic Ecu025 ALT(SGPT) 18 U/L 06/08/2015 Comp Metabolic Ibc838 BILI T 0.8 mg/dL 06/08/2015 Comp Metabolic Ufk430 ALBUMIN 4.4 g/dL 06/08/2015 Comp Metabolic Dcl379 TPRO 7.0 g/dL 06/08/2015 Comp Metabolic Plg469 GLOB 2.6 g/dL 06/08/2015 Comp Metabolic Ygo349 A/G Ratio 1.7 Ratio 06/08/2015 Comp Metabolic Nez895 Osmo 271 mOsmo 06/08/2015 Tsh Ord6 hTSH [...] Ord2 RDW 14.4 % 06/08/2015 LYME EIA 9211061 LYME EIA 0.24 04/25/2014 TULAREM AB [id number] TULAREM AB <1:20 04/24/2014 RMSF IFA 3573992 IGG RMSF <1:16 04/24/2014 RMSF IFA [id number] IGM RMSF <1:10 04/24/2014 E CHAFF AB [id number] IGG E CHFF <1:16 04/24/2014 E CHAFF AB [id number] IGM E CHFF <1:10 04/24/2014 ICT OCCULT [id number] ICT OCCULT NEG 10/11/2013 Review of Systems System Result Effective Dates Constitutional No recent illness 11/28/2018 Constitutional No [...] (positive) 02/21/2018 None Full Exam - General 1994 Constitutional general appearance Overall: well developed 11/28/2017 [...] masses 09/30/2013 None Full Exam - General 1995 Respiratory auscultation Overall: breath sounds clear bilaterally 09/30/2013 None Full Exam - General 1995 Respiratory respiratory effort/rhythm Overall: no retractions 09/30/2013 None Full Exam - General 1995 Respiratory respiratory effort/rhythm Overall: normal rate 09/30/2013 None Full Exam - General 1995 Cardiovascular extremities Overall: no clubbing 09/30/2013 None Full Exam - General 1995 Cardiovascular auscultation of heart Overall: regular rate 09/30/2013 None Full Exam - General 1994 Cardiovascular auscultation of heart Overall: normal heart sounds 09/30/2013 None Full Exam - General 1995 Neurologic gait Overall: no ataxia, no unsteadiness 09/30/2013 None Full Exam - General 1995 Neurologic [...] accomodation 10/04/2012 None Full Exam - General 1994 Ears/Nose/Throat [...] tenderness 10/04/2012 None Full Exam - General 1995 Abdomen abdominal exam Overall: normal bowel sounds 10/04/2012 None Full Exam - General 1995 [...] J3301 09/11/2018 URINALYSIS NONAUTO W/O SCOPE CPT-4: 77883 05/07/2018 ADMIN INFLUENZA VIRUS VAC CPT-4: G0008 04/24/2018 FLU VACC PRSV FREE INC ANTIG CPT-4: 04373 04/24/2018 PPPS, SUBSEQ VISIT CPT- 4: G0439 11/28/2017 ADMIN INFLUENZA VIRUS VAC CPT-4: G0008 06/07/2017 FLU VACC PRSV FREE INC ANTIG CPT-4: 34938 06/07/2017 PPPS, SUBSEQ VISIT CPT- 4: G0439 11/17/2016 TRIAMCINOLONE ACET INJ NOS CPT-4: J3301 09/05/2016 PPPS, SUBSEQ VISIT CPT- 4: G0439 11/13/2015 PNEUMOCOCCAL VACC 13 STEPHANIE IM Formatting Model/CDA Sections, Assigned to/Lila Colon SNOMED CT: 81383986 CPT-4: 67633Lzybkuz 11/13/2015 ADMIN PNEUMOCOCCAL VACCINE SNOMED CT: 75662065 CPT-4: G0009 11/13/2015 ROCEPHIN, PER 250 MG CPT- 4: J0696 07/23/2015 URINALYSIS NONAUTO W/O SCOPE CPT-4: 88587 10/10/2014 ROUTINE VENIPUNCTURE CPT- 4: 42095 04/23/2014 Pneumococcal Polysaccharide Vaccine, 23-Valent, Ad CPT-4: 51477 04/15/2014 ADMIN INFLUENZA VIRUS VAC CPT-4: G0008 04/15/2014 FLU VAC NO PRSV 4 STEPHANIE 3 YRS+ CPT-4: 35327 04/15/2014 ADMIN PNEUMOCOCCAL VACCINE SNOMED CT: 78812394 CPT-4: G0009 04/15/2014 THER/PROPH/DIAG INJ SC/IM CPT-4: 56218 02/11/2014 TRIAMCINOLONE ACET INJ NOS CPT-4: J3301 02/11/2014 TRIAMCINOLONE ACET INJ NOS CPT-4: J3301 01/21/2014 INITIAL PREVENTIVE EXAM CPT-4: G0402 09/30/2013 PRESCRIP TRANSMIT VIA ERX SY CPT-4: G8553 03/13/2013 Vital Signs Date Vital 11/28/2018 Blood Pressure 1: 132/74 Code: 8480-6 BMI: 28.1 Code: 97281-6 Heart Rate 1: 73 bpm Height: 5'5" SpO2: 94% Waist Measure (cm): 97 cm Weight: 169 lbs 10/08/2018 Blood Pressure 1: 140/82 Code: 8480-6 Heart Rate 1: 80 bpm Height: 5'5" SpO2: 95% Temperature: 37.0 (C) / 98.6 (F) Weight: 09/11/2018 Blood Pressure 1: 114/76 Code: 8480-6 BMI: 29.3 Code: 52844-0 Heart Rate 1: 80 bpm Height: 5'5" SpO2: 95% Temperature: 36.3 (C) / 97.3 (F) Weight: 176 lbs 07/12/2018 Blood Pressure 1: 126/76 Code: 8480-6 BMI: 29.3 Code: 59962-2 Heart Rate 1: 70 bpm Height: 5'5" SpO2: 96% Weight: 176 lbs 05/07/2018 Blood Pressure 1: 118/72 Code: 8480-6 BMI: 29.5 Code: 82414-8 Heart Rate 1: 71 bpm Height: 5'5" SpO2: 98% Weight: 177 lbs 02/21/2018 Blood Pressure 1: 120/78 Code: 8480-6 BMI: 29.0 Code: 55943-4 Heart Rate 1: 68 bpm Height: 5'5" SpO2: 96% Weight: 174 lbs 11/28/2017 Blood Pressure 1: 122/98 Code: 8480-6 BMI: 31.0 Code: 11129-4 Heart Rate 1: 89 bpm Height: 5'5" SpO2: 98% Waist Measure (cm): 91 cm Weight: 186 lbs 08/29/2017 Blood Pressure 1: 146/80 Code: 8480-6 BMI: 29.5 Code: 51324-2 Heart Rate 1: 68 bpm Height: 5'5" SpO2: 98% Temperature: 36.6 (C) / 97.8 (F) Weight: 177 lbs 06/13/2017 Blood Pressure 1: 138/76 Code: 8480-6 BMI: 29.6 Code: 89336-4 Heart Rate 1: 63 bpm Height: 5'5" SpO2: 95% Weight: 178 lbs 02/16/2017 Blood Pressure 1: 128/80 Code: 8480-6 BMI: 29.9 Code: 03842-8 Heart Rate 1: 77 bpm Height: 5'5" SpO2: 96% Weight: 179 lbs 8 oz 02/06/2017 Blood Pressure 1: 140/80 Code: 8480-6 BMI: 29.8 Code: 58058-8 Heart Rate 1: 72 bpm Height: 5'5" SpO2: 97% Weight: 179 lbs 11/17/2016 Blood Pressure 1: 130/72 Code: 8480-6 BMI: 29.6 Code: 92743-2 Heart Rate 1: 62 bpm Height: 5'5" SpO2: 98% Waist Measure (cm): 91 cm Weight: 178 lbs 10/12/2016 Blood Pressure 1: 128/78 Code: 8480-6 BMI: 28.5 Code: 68307-7 Heart Rate 1: 62 bpm Height: 5'5" SpO2: 97% Weight: 171 lbs 09/05/2016 Blood Pressure 1: 122/70 Code: 8480-6 BMI: 28.0 Code: 47353-9 Heart Rate 1: 65 bpm Height: 5'5" SpO2: 94% Weight: 168 lbs 06/21/2016 Blood Pressure 1: 120/82 Code: 8480-6 BMI: 28.3 Code: 65698-6 Heart Rate 1: 65 bpm Height: 5'5" SpO2: 97% Weight: 170 lbs 05/24/2016 Blood Pressure 1: 136/80 Code: 8480-6 BMI: 28.1 Code: 56866-6 Heart Rate 1: 71 bpm Height: 5'5" SpO2: 96% Weight: 169 lbs 05/10/2016 Blood Pressure 1: 120/82 Code: 8480-6 BMI: 27.6 Code: 83760-7 Heart Rate 1: 86 bpm Height: 5'5" SpO2: 95% Weight: 166 lbs 05/03/2016 Blood Pressure 1: 124/78 Code: 8480-6 BMI: 28.1 Code: 14942-0 Heart Rate 1: 88 bpm Height: 5'5" SpO2: 97% Weight: 169 lbs 11/13/2015 Blood Pressure 1: 130/60 Code: 8480-6 BMI: 30.0 Code: 85190-9 Heart Rate 1: 7 bpm Height: 5'5" Waist Measure (cm): 97 cm Weight: 180 lbs 07/23/2015 Blood Pressure 1: 124/70 Code: 8480-6 BMI: 29.6 Code: 78070-8 Heart Rate 1: 74 bpm Height: 5'5" SpO2: 96% Temperature: 36.7 (C) / 98.1 (F) Weight: 178 lbs 07/06/2015 Blood Pressure 1: 138/78 Code: 8480-6 BMI: 29.6 Code: 66001-6 Heart Rate 1: 84 bpm Height: 5'5" SpO2: 96% Weight: 178 lbs 05/26/2015 Blood Pressure 1: 122/80 Code: 8480-6 BMI: 29.6 Code: 97690-1 Heart Rate 1: 84 bpm Height: 5'5" Weight: 178 lbs 02/16/2015 Blood Pressure 1: 124/82 Code: 8480-6 BMI: 29.0 Code: 50767-1 Heart Rate 1: 68 bpm Height: 5'5" Weight: 174 lbs 12/10/2014 Blood Pressure 1: 112/64 Code: 8480-6 BMI: 28.6 Code: 68178-6 Heart Rate 1: 80 bpm Height: 5'5" Weight: 172 lbs 10/16/2014 Blood Pressure 1: 128/84 Code: 8480-6 Heart Rate 1: 64 bpm Weight: 172 lbs 10/09/2014 Blood Pressure 1: 136/90 Code: 8480-6 BMI: 28.6 Code: 48636-4 Heart Rate 1: 76 bpm Height: 5'5" Weight: 172 lbs 08/26/2014 Blood Pressure 1: 118/72 Code: 8480-6 BMI: 29.0 Code: 43977-8 Heart Rate 1: 76 bpm Height: 5'5" Weight: 174 lbs 05/16/2014 Blood Pressure 1: 110/72 Code: 8480-6 BMI: 29.0 Code: 83017-1 Height: 5'5" Weight: 174 lbs 04/23/2014 Blood Pressure 1: 124/70 Code: 8480-6 BMI: 29.0 Code: 41338-3 Heart Rate 1: 72 bpm Height: 5'5" Weight: 174 lbs 04/15/2014 Temperature: 36.5 (C) / 97.7 (F) 01/21/2014 Blood Pressure 1: 98/62 Code: 8480-6 BMI: 29.0 Code: 95410- 5 Heart Rate 1: 84 bpm Height: 5'5" Temperature: 37.1 (C) / 98.7 (F) Weight: 174 lbs 12/05/2013 Blood Pressure 1: 138/88 Code: 8480-6 BMI: 29.0 Code: 40559-3 Heart Rate 1: 60 bpm Height: 5'5" Weight: 174 lbs 11/05/2013 Blood Pressure 1: 118/80 Code: 8480-6 BMI: 28.8 Code: 82921-7 Heart Rate 1: 76 bpm Height: 5'5" Weight: 173 lbs 10/15/2013 Blood Pressure 1: 120/78 Code: 8480-6 BMI: 29.1 Code: 81191-6 Heart Rate 1: 88 bpm Height: 5'5" Weight: 175 lbs 09/30/2013 Blood Pressure 1: 112/84 Code: 8480-6 BMI: 29.1 Code: 36117-3 Heart Rate 1: 68 bpm Height: 5'5" Weight: 175 lbs 03/13/2013 Blood Pressure 1: 112/84 Code: 8480-6 BMI: 28.6 Code: 62590-3 Heart Rate 1: 64 bpm Height: 5'5" Weight: 173 lbs 10/04/2012 Blood Pressure 1: 120/72 Code: 8480-6 BMI: 28.0 Code: 43848-6 Heart Rate 1: 64 bpm Height: 5'5" Weight: 169 lbs 08/22/2011 Blood Pressure 1: 134/84 Code: 8480-6 BMI: 27.5 Code: 95753-4 Heart Rate 1: 68 bpm Height: 5'5" Respiratory Rate: 16 bpm Weight: 166 lbs 8 oz 06/17/2011 Blood Pressure 1: 120/76 Code: 8480-6 BMI: 27.0 Code: 10836-5 Heart Rate 1: 58 bpm Height: 5'5" Respiratory Rate: 16 bpm Weight: 163 lbs Functional Status No Functional Status data History of Present Illness Symptom Name Status Result Effective Date Notes Alcohol Use drinks 1 days per week [...] pt states that when this started, her carson was diagnosed with renal cell carcinoma, needed [...] data Encounters Encounter Performer Location Codes Date 03191 EST. PATIENT, LEVEL III Diagnosis: Cough[ICD10: R05] Diagnosis: Acute bronchitis, unspecified[ICD10: J20.9] Suma Alvarado MD, [facility] CPT-4: 93115 10/08/2018 ([id number]) 98784 EST. PATIENT, LEVEL III Diagnosis: Cough[ICD10: R05] Diagnosis: Acute recurrent maxillary sinusitis[ICD10: J01.01] [facility] CPT-4: 95242 09/11/2018 02081 EST. PATIENT, LEVEL III Diagnosis: Pain in right hand[ICD10: M79.641] [facility] CPT-4: 38302 07/12/2018 ([id number]) 46320 EST. PATIENT, LEVEL II Diagnosis: Dysuria[ICD10: R30.0] Suma Alvarado MD, [facility] CPT-4: 59672 05/07/2018 37136 EST. PATIENT, LEVEL IV Diagnosis: Tinnitus, bilateral[ICD10: H93.13] Diagnosis: Other allergic rhinitis[ICD10: J30.89] Gina Alvarado MD, [facility] CPT- 4: 99543 02/21/2018 34625 EST. PATIENT, LEVEL III Diagnosis: Acute laryngopharyngitis[ICD10: J06.0] Diagnosis: Other allergic rhinitis[ICD10: J30.89] Gina Alvarado MD, [facility] CPT- 4: 53736 08/29/2017 ([id number]) 36660 EST. PATIENT, LEVEL IV Diagnosis: Postprocedural hypothyroidism[ICD10: E89.0] Diagnosis: Major depressive disorder, recurrent, moderate[ICD10: F33.1] Diagnosis: Generalized anxiety disorder[ICD10: F41.1] Elina Alvarado MD, [facility] CPT-4: 47242 06/13/2017 ([id number]) 67655 EST. PATIENT, LEVEL IV Diagnosis: Pelvic and perineal pain[ICD10: R10.2] Diagnosis: Acute vaginitis[ICD10: N76.0] Suma Alvarado MD, [facility] CPT-4: 17669 02/16/2017 ([id number]) 31205 EST. PATIENT, LEVEL III Diagnosis: Postprocedural hypothyroidism[ICD10: E89.0] Diagnosis: Major depressive disorder, recurrent, moderate[ICD10: F33.1] Elina Alvarado MD, [facility] CPT-4: 40531 02/06/2017 ([id number]) 67975 EST. PATIENT, LEVEL III Diagnosis: Generalized anxiety disorder[ICD10: F41.1] Elina Alvarado MD, [facility] CPT-4: 74645 10/12/2016 ([id number]) 17434 EST. PATIENT, LEVEL III Diagnosis: Cough[ICD10: R05] Diagnosis: Acute upper respiratory infection, unspecified[ICD10: J06.9] Suma Alvarado MD, [facility] CPT-4: 88158 09/05/2016 ([id number] 05904 EST. PATIENT, LEVEL III Diagnosis: Generalized anxiety disorder[ICD10: F41.1] Diagnosis: Major depressive disorder, recurrent, moderate[ICD10: F33.1] Diagnosis: Postprocedural hypothyroidism[ICD10: E89.0] Elina Alvarado MD, [facility] CPT-4: 13135 06/21/2016 ([id number] 41135 EST. PATIENT, LEVEL III Diagnosis: Major depressive disorder, recurrent, moderate[ICD10: F33.1] Elina Alvarado MD, [facility] CPT-4: 20752 05/24/2016 ([id number] 36304 EST. PATIENT, LEVEL III Diagnosis: Major depressive disorder, recurrent, moderate[ICD10: F33.1] Elina Alvarado MD, [facility] CPT-4: 35271 05/10/2016 ([id number] 76369 EST. PATIENT, LEVEL III Diagnosis: Generalized anxiety disorder[ICD10: F41.1] Diagnosis: Major depressive disorder, recurrent, moderate[ICD10: F33.1] Suma Alvarado MD, [facility] CPT-4: 43098 05/03/2016 ([id number]) 16191 EST. PATIENT, LEVEL III Diagnosis: Cough[ICD10: R05] Diagnosis: Acute upper respiratory infection, unspecified[ICD10: J06.9] Suma Alvarado MD, [facility] CPT-4: 22564 07/23/2015 ([id number] 36176 EST. PATIENT, LEVEL III Diagnosis: Hypothyroidism, unspecified[ICD10: E03.9] Diagnosis: Generalized anxiety disorder[ICD10: F41.1] Diagnosis: Other depressive episodes[ICD10: F32.8] Elina Alvarado MD, [facility] CPT-4: 50667 07/06/2015 ([id number]) 34249 EST. PATIENT, LEVEL IV Diagnosis: Generalized anxiety disorder[ICD10: F41.1] Diagnosis: Major depressive disorder, recurrent, unspecified[ICD10: F33.9] Elina Alvarado MD, [facility] CPT-4: 14077 05/26/2015 ([id number]) 12507 EST. PATIENT, LEVEL II Diagnosis: 2Nd degree burn of multiple fingers of right hand not including thumb[ICD9: 944.23] Suma Alvarado MD [facility] CPT-4: 80253 02/16/2015 ([id number]) 96719 EST. PATIENT, LEVEL IV Diagnosis: Hammertoe[ICD9: 735.4] Diagnosis: Foot pain[ICD9: 729.5] Diagnosis: HYPOTHYROIDISM[ICD9: 244.9] Elina Alvarado MD, [facility] CPT-4: 17036 12/10/2014 ([id number]) 06021 EST. PATIENT, LEVEL III Diagnosis: Urinary incontinence[ICD9: 788.30] Diagnosis: Pelvic pain in female[ICD9: 625.9] Elina Alvarado MD [facility] CPT- 4: 61048 10/16/2014 ([id number]) 86762 EST. PATIENT, LEVEL III Diagnosis: Urinary incontinence[ICD9: 788.30] Diagnosis: Pelvic pain in female[ICD9: 625.9] Suma Alvarado MD, [facility] CPT- 4: 22543 10/09/2014 ([id number]) 45802 EST. PATIENT, LEVEL III Diagnosis: HYPOTHYROIDISM[ICD9: 244.9] Elina Alvarado MD [facility] CPT-4: 60961 08/26/2014 ([id number]) 85827 EST. PATIENT, LEVEL III Diagnosis: Neck pain[ICD9: 723.1] Diagnosis: Muscle tension headache[ICD9: 307.81] Suma Alvarado MD [facility] CPT-4: 80221 05/16/2014 ([id number]) 86473 EST. PATIENT, LEVEL IV Diagnosis: Arthropod bite[ICD9: 919.4] Diagnosis: Poison gilmer dermatitis[ICD9: 692.6] Diagnosis: Arthralgia[ICD9: 719.40] Diagnosis: Myalgia[ICD9: 729.1] Elina Alvarado MD, [facility] CPT-4: 84972 04/23/2014 ([id number]) 72686 EST. PATIENT, LEVEL III Diagnosis: ACUTE URI[ICD9: 465.9] Diagnosis: COUGH[ICD9: 786.2] Suma Alvarado MD, [facility] CPT-4: 28667 01/21/2014 ([id number]) 58881 EST. PATIENT, LEVEL III Diagnosis: HYPOTHYROIDISM[ICD9: 244.9] Diagnosis: GENERALIZED ANXIETY DISEASE[ICD9: 300.02] Elina Alvarado MD, [facility] CPT-4: 41240 12/05/2013 ([id number]) 39789 EST. PATIENT, LEVEL III Diagnosis: GENERALIZED ANXIETY DISEASE[ICD9: 300.02] Diagnosis: DEPRESSIVE DISORDER NEC[ICD9: 311] Elina Alvarado MD, [facility] CPT- 4: 07333 11/05/2013 ([id number]) 01848 EST. PATIENT, LEVEL III Diagnosis: HYPOTHYROIDISM[ICD9: 244.9] Elina Alvarado MD, [facility] CPT-4: 62243 10/15/2013 ([id number]) Miscellaneous no charge Diagnosis: Colon cancer screening[ICD9: V76.51] Elina Alvarado MD, [facility] CPT- 4: 94795 10/10/2013 ([id number]) 52444 EST. PATIENT, LEVEL IV Diagnosis: HYPOTHYROIDISM[ICD9: 244.9] Diagnosis: DEPRESSIVE DISORDER NEC[ICD9: 311] Diagnosis: GENERALIZED ANXIETY DISEASE[ICD9: 300.02] Diagnosis: HYPERLIPIDEMIA[ICD9: 272.4] Elina Alvarado MD, [facility] CPT-4: 09900 03/13/2013 ([id number]) 53741 EST. PATIENT, LEVEL IV Diagnosis: HYPERLIPIDEMIA[ICD9: 272.4] Diagnosis: HYPOTHYROIDISM[ICD9: 244.9] Diagnosis: GENERALIZED ANXIETY DISEASE[ICD9: 300.02] Diagnosis: DEPRESSIVE DISORDER NEC[ICD9: 311] Elina Alvarado MD, [facility] CPT- 4: 80525 10/04/2012 ([id number]) 19702 EST. PATIENT, LEVEL III Diagnosis: VICTOR HUGO (generalized anxiety disorder)[ICD9: 300.02] Diagnosis: Chronic depression[ICD9: 311] Elina Alvarado MD, [facility] CPT-4: 70139 08/22/2011 52981 EST. PATIENT, LEVEL IV Diagnosis: CHEST PAIN NEC[ICD9: 786.59] Diagnosis: HYPERLIPIDEMIA[ICD9: 272.4] Diagnosis: POSTSURGICAL HYPOTHYROIDISM[ICD9: 244.0] [facility] CPT-4: 01653 06/17/2011 Plan of Care Planned Activity Notes Codes Status Date Visit Plan: Medicare Exam - today we [...] care surrogate. 11/28/2018 Appointment: Gina Kern WPtel: [address] [place] [address] - Annual Wellness Visit 11/28/2018 Patient Education: Patient Medication Summary Completed 11/28/2018 Care Plan: Referral Order SNOMED-CT : [id number] Pending 11/28/2018 Visit Plan: Bronchitis - acute case of bronchitis identified. Pt has been given antibiotics, breathing treatments as appropriate, and pt has been instructed to call if symptoms are not improved, or if symptoms acutely worsen. 10/08/2018 Appointment: Suma Choi WPtel: [address] [place], [place] [phone] (30 min) [facility] 10/08/2018 Patient Education: Patient Medication Summary Completed 10/08/2018 Visit Plan: Sinusitis - Pt has acute infection - pain in face, maxillary region, Pt informed to use decongestant, RX given to patient, sinus rinses also recommended. Call if symptoms do not show improvement. 09/11/2018 Appointment: Suma Choi WPtel: [address] [place], [place] [phone] (15 min) Moderate 09/11/2018 Patient Education: Patient Medication Summary Completed 09/11/2018 Visit Plan: Right hand pain - ongoing - will send for x-ray - The pt is to use prn antiinflammatories to manage acute pain. The patient is to call the office if the pain is worsening or does not improve. 07/12/2018 Appointment: Gina Kern WPtel: [address] [place], [place] [phone] (15 min) Moderate 07/12/2018 Patient Education: Patient Medication Summary Completed 07/12/2018 Care Plan: X-RAY EXAM OF HAND LOINC : 16432-5 Pending 07/12/2018 Visit Plan: Dysuria- UA negative -symptoms resolved -instructed patient to continue with adequate fluid intake and call if symptoms return. Patient verbalized understanding of plan. 05/07/2018 Appointment: Suma Choi WPtel: [facility] [place] [phone] (15 min) Moderate 05/07/2018 Patient Education: Patient Medication Summary Completed 05/07/2018 Appointment: Injection 04/24/2018 Patient Education: Patient Medication Summary Completed 04/24/2018 Referral: Peter Rubio [address] Referral Completed 03/22/2018 Visit Plan: Allergies - [...] hearing testing 02/21/2018 Appointment: Gina Kern WPtel: [address] [place] [address] [place] (15 min) Moderate 02/21/2018 Patient Education: Patient Medication Summary Completed 02/21/2018 Care Plan: Referral Order SNOMED-CT : [id number] Pending 02/21/2018 Appointment: Elina Alvarado WPtel: [address] [place], [place] [phone] (15 min) Moderate 12/14/2017 Visit Plan: Medicare [...] Summary Completed 11/28/2017 Appointment: Gina Kern WPtel: [phone] [facility] [facility] - Annual Wellness Visit 11/21/2017 Visit Plan: [...] allergy spray. 08/29/2017 Appointment[phone] (15 min) Moderate 08/29/2017 Patient Education: Patient [...] counseling. 06/13/2017 Appointment: Elina Alvarado WPtel: [phone] [facility] (15 min) Moderate 06/13/2017 Patient Education: Patient Medication Summary Completed 06/13/2017 Appointment: Injection 06/07/2017 Patient Education: Patient Medication Summary Completed 06/07/2017 Visit Plan: Pelvic pain-UA negative-pap done today in the office- will start patient on flagyl for bacterial vaginosis-instructed patient to call if symptoms do not resolve or if any worse. Patient verbalized understanding of plan. 02/16/2017 Appointment: Suma Choi WPtel: [phone] [phone] [place] (30 min) Complex 02/16/2017 Patient [...] medications. 02/06/2017 Appointment: [phone] (15 min) Moderate 02/06/2017 Patient Education: Patient [...] care surrogate. 11/17/2016 Appointment: Gina Kern WPtel: [facility] - Annual Wellness Visit 11/17/2016 Patient Education: [...] current medications. 10/12/2016 Appointment: Elina Alvarado WPtel: [id number] (15 min) Moderate 10/12/2016 Patient Education: Patient [...] : J06.9 09/05/2016 Appointment: Suma Choi WPtel: [phone] [phone] (10 min) Simple 09/05/2016 Patient Education: [...] with lexapro 06/21/2016 Appointment: Elina Alvarado WPtel: [phone] [id number] (15 min) Moderate 06/21/2016 Patient Education: Patient Medication Summary Completed 06/21/2016 Visit Plan: Depression - improved with lexapro - continue with current treatment and counseling. 05/24/2016 Appointment: Elina Alvarado WPtel: [phone] [facility] (15 min) Moderate 05/24/2016 Patient Education: Patient Medication Summary Completed 05/24/2016 Visit Plan: Depression - improved on the Lexapro - stop ativan - start on xanax 05/10/2016 Appointment: Elina Alvarado WPtel: [phone] [facility] [place] (15 min) Moderate 05/10/2016 Patient Education: [...] Completed 05/03/2016 Appointment: Suma Choi WPtel: [phone] [phone] [place] (15 min) Moderate 02/26/2016 Visit [...] and to maintain independece in the home. Iiqshdskdj-sjurhynncudb-zsywzd to wellbutrin Pneumonia 13 administered today in [...] and to maintain independece in the home. Mlzwhccguj-vsjcyyblkfvy-moencr to wellbutrin Pneumonia 13 administered today in the office 11/13/2015 Appointment: [facility] - Annual Wellness Visit 11/13/2015 Patient Education: Patient Medication Summary Completed 11/13/2015 Patient Education: Obesity Completed 11/13/2015 Care Plan: [facility] : 76386-2 Ordered 11/13/2015 Appointment: Lab Draw 08/10/2015 Visit [...] current medications. 07/06/2015 Appointment: Elina Alvarado WPtel: [address] [place], [place] [phone] (30 min) Complex 07/06/2015 Patient Education: Patient [...] discharge. 12/10/2014 Appointment: Elina Alvarado WPtel: [address] [place], [place] [phone] Surgical Clearance 12/10/2014 Patient Education: Patient Medication Summary Completed 12/10/2014 Visit Plan: Urinary incontinence and Pelvic discomfort - recommended pt to have evaluation by Dr. Brandt - pt agreeable to referral. Pt is to call if abdominal pain does not improve. 10/16/2014 Appointment: Elina Alvarado WPtel: [id number] Follow up 10/16/2014 Patient Education: Patient Medication Summary Completed 10/16/2014 Care Plan: Referral Order SNOMED-CT : [id number] Ordered 10/16/2014 Patient Education: Patient Medication Summary Completed 10/10/2014 Visit Plan: Pelvic pain-history of mesh implant-recommend CT abd/pelvis to evaluate for any abnormality-refer to Dr Woods if pain does not improve Urinary incontinence-check UA with C&S if indicated 10/09/2014 Patient Education: Patient Medication Summary Completed 10/09/2014 Care Plan: CT ABD & PELV 1/> REGKARRI LOINC : 28643-7 Ordered 10/09/2014 Visit Plan: Hypothyroidism - pt with chronic hypothyroidism, continue with current medication, will monitor pt to signs or symptoms of lack of adequate supplementation. Pt is to continue with current dose of medication unless directed otherwise. Check labs at regular intervals wither q 3 months or q 6 months based on previous levels of control. 08/26/2014 Appointment: Elina Alvarado WPtel: [address] [place], [place] [phone] Follow up 08/26/2014 Patient Education: Patient Medication [...] with screening. 04/23/2014 Appointment: Elina Alvarado WPtel: [address] [place], [place] [phone] Sick 04/23/2014 Patient Education: Patient Medication Summary Completed 04/23/2014 Care Plan: Referral Order SNOMED-CT : [id number] Ordered 04/23/2014 Appointment: Nurse Visit 04/15/2014 Patient Education: Patient Medication Summary Completed 04/15/2014 Appointment: Elina Alvarado WPtel: [address] [place], [place] [phone] Injection 02/11/2014 Patient Education: Patient Medication Summary [...] current treatment. 12/05/2013 Appointment: Elina Alvarado WPtel: [address] [place], [place] [phone] Follow up 12/05/2013 Patient Education: Patient Medication [...] above medications. 11/05/2013 Appointment: Elina Alvarado WPtel: [id number] Follow up 11/05/2013 Patient Education: Patient Medication [...] Alvarado WPtel: [phone] [id number] [facility] 10/15/2013 Patient Education: Patient Medication [...] surrogate. 09/30/2013 Appointment: Elina Alvarado WPtel: [phone] [id number] [place] [address] - Initial Preventive Physical Exam 09/30/2013 Patient Education: Patient Medication Summary Completed 09/30/2013 Appointment: Elina Alvarado WPtel: [phone] [id number] [facility] - Initial Preventive Physical Exam 09/11/2013 Visit [...] prn use. 03/13/2013 Appointment: Elina Alvarado WPtel: [phone] [place] [phone] Follow up 03/13/2013 Patient Education: Patient Medication [...] current medications. 10/04/2012 Appointment: Elina Alvarado WPtel: [id number] Follow up 10/04/2012 Patient Education: Patient [...] anxiety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
--- OUTSIDE RECORDS SUMMARY | 2018-12-27 09:25 | XMS REPORT | CCD ---
Author Author [facility]ina [facility]ado Organization [facility] Address [address] [place] [address] Phone Care Team Providers Care Molecular Spectroscopist Name Role Phone PP Unavailable CCM Unavailable Summary Purpose Interface Exchange Insurance Providers Payer name Policy type / Coverage type Covered constitution party ID Effective Begin Date Effective End Date WPS Medicare Part B [id number] 2018 Unknown [facility] [id number] Unknown Family history Grandmother Diagnosis Age At [...] Description Effective Dates Tobacco history SNOMED CT: 1607469 Former smoker quit 2 years ago, social smoker, 1 pack per month 200709/30/2013 Employment Unknown 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 Marital status Unknown 06/17/[address]: 175603 Currently drinks alcohol 2 beers/week 06/17/2011 Has [...] 02/16/2017 Unknown Pelvic and perineal pain ICD-9: [id number] ICD-10: R10.2 Active 02/16/2017 Unknown Hypothyroidism, unspecified [...] 02/16/2017 Active Pelvic and perineal pain ICD-9: [id number] ICD-10: R10.2 02/16/2017 Active Hypothyroidism, unspecified ICD-9: [...] Instructions Zithromax Z-Que 250 mg tablet RxNorm: 645613 1 Tablet(s) PO UD 10/08/2018 10/12/2018 Inactive Kenalog 40 mg/mL suspension for injection RxNorm: 4507038 Milliliter(s) Inj 10/08/2018 10/08/2018 Inactive Xanax 0.5 mg tablet RxNorm: 963199 1 Tablet(s) PO QID as needed anxiety 09/24/2018 11/21/2018 Inactive Kenalog 40 mg/mL suspension for injection RxNorm: 6869888 1 Milliliter(s) Inj 09/11/2018 09/11/2018 Inactive Augmentin 875 mg-125 mg tablet RxNorm: 796550 1 Tablet(s) PO BID 09/11/2018 09/17/2018 Inactive naproxen 500 mg tablet RxNorm: 065998 1 Tablet(s) PO BID 07/12/2018 07/16/2018 Inactive Synthroid 112 mcg tablet RxNorm: 104530 TAKE ONE TABLET BY MOUTH DAILY 07/02/2018 12/28/2018 Active Lipitor 10 mg tablet RxNorm: 383008 TAKE ONE TABLET BY MOUTH EVERY DAY 06/06/2018 05/31/2019 Active Lexapro 20 mg tablet RxNorm: 214996 TAKE ONE TABLET BY MOUTH DAILY 05/08/2018 12/03/2018 Active Synthroid 100 mcg tablet RxNorm: 659251 TAKE ONE TABLET BY MOUTH EVERY OTHER DAY 04/10/2018 10/06/2018 Inactive Synthroid 100 mcg tablet RxNorm: 158129 1 Tablet(s) PO every other day 12/11/2017 04/09/2018 Inactive QOD -alternate with 112mcg DISPENSE BRAND NAME Synthroid 112 mcg tablet RxNorm: 977357 1 Tablet(s) every other day 11/28/2017 03/27/2018 Inactive QOD alternate with 100mcg Synthroid 100 mcg tablet RxNorm: 737659 1 Tablet(s) PO every other day 11/28/2017 12/10/2017 Inactive QOD -alternate with 112mcg DISP[employer] BRAND NAME Synthroid 100 mcg tablet RxNorm: 246112 1 Tablet(s) PO every other day 11/28/2017 11/27/2017 Inactive QOD -alternate with 112mcg Xanax 0.5 mg tablet RxNorm: 488022 1 Tablet(s) PO QID as needed anxiety 11/14/2017 01/11/2018 Inactive Lexapro 20 mg tablet RxNorm: 246580 TAKE ONE TABLET BY MOUTH DAILY 11/13/2017 05/07/2018 Inactive Xanax 0.5 mg tablet RxNorm: 739970 1 Tablet(s) PO QID as needed anxiety 09/11/2017 11/08/2017 Inactive Tamiflu 75 mg capsule RxNorm: 458633 1 Capsule(s) PO BID 08/29/2017 09/02/2017 Inactive Synthroid 112 mcg tablet RxNorm: 835020 1 Tablet(s) daily 08/14/2017 11/27/2017 Inactive fyi - medication changed, refill x 6 - #30 pills Synthroid 112 mcg tablet RxNorm: 878768 1 Tablet(s) daily 06/13/2017 08/13/2017 Inactive fyi - medication changed, refill x 6 - #30 pills Lexapro 20 mg tablet RxNorm: 165045 TAKE ONE TABLET BY MOUTH DAILY 06/09/2017 11/05/2017 Inactive Synthroid 112 mcg tablet RxNorm: 061966 TAKE 1 TABLET BY MOUTH DAILY EXCEPT TAKE 1/2 TABLET ON MONDAY, MONDAY, AND Monday05/22/2017 06/12/2017 Inactive Lipitor 10 mg tablet RxNorm: 962795 TAKE ONE TABLET BY MOUTH EVERY DAY 03/08/2017 05/31/2018 Inactive Flagyl 500 mg tablet RxNorm: 573542 1 Tablet(s) PO TID 02/16/2017 02/22/2017 Inactive Xanax 0.5 mg tablet RxNorm: 114329 1 Tablet(s) PO QID as needed anxiety 12/23/2016 03/21/2017 Inactive Synthroid 112 mcg tablet RxNorm: 104598 TAKE 1 TABLET BY MOUTH DAILY EXCEPT FOR TAKE 1/2 TABLET ON MONDAY, MONDAY, AND Monday12/23/2016 04/13/2017 Inactive Lexapro 20 mg tablet RxNorm: 498810 TAKE ONE TABLET BY MOUTH DAILY 11/29/2016 05/27/2017 Inactive Zithromax Z-Que 250 mg tablet RxNorm: 451331 1 Tablet(s) PO UD 09/05/2016 09/09/2016 Inactive zpack Kenalog 40 mg/mL suspension for injection RxNorm: 2758579 1 Milliliter(s) Inj 09/05/2016 09/05/2016 Inactive Lipitor 10 mg tablet RxNorm: 740734 TAKE ONE TABLET BY MOUTH EVERY DAY 08/30/2016 02/25/2017 Inactive Ativan 1 mg tablet RxNorm: 191125 1 Tablet(s) PO Q6 PRN as needed TAKE ONE TABLET BY MOUTH THREE TIMES A DAY OR EVERY 6 HOURS NEEDED FOR ANXIETY 08/30/2016 12/22/2016 Inactive Synthroid 112 mcg tablet RxNorm: 576833 1 Tablet(s) PO daily except one-half tab on Mon/Mon/Sat 08/23/2016 12/12/2016 Inactive will refill when needed Lexapro 20 mg tablet RxNorm: 299942 TAKE ONE TABLET BY MOUTH DAILY 08/02/2016 11/28/2016 Inactive Synthroid 112 mcg tablet RxNorm: 334102 1 Tablet(s) PO daily except 1/2 tab mon and sat 05/25/2016 08/22/2016 Inactive will refill when needed Xanax 0.5 mg tablet RxNorm: 144656 1 Tablet(s) PO QID as needed anxiety 05/10/2016 08/29/2016 Inactive Lexapro 20 mg tablet RxNorm: 563332 1 Tablet(s) PO daily 05/03/2016 07/31/2016 Inactive 1/2 tab x 1 week then increase to a full pill daily buspirone 5 mg tablet RxNorm: 915525 TAKE ONE-HALF TABLET BY MOUTH TWICE A DAY 03/15/2016 05/02/2016 Inactive Synthroid 112 mcg tablet RxNorm: 318740 1 Tablet(s) PO daily 02/25/2016 05/24/2016 Inactive Ativan 1 mg tablet RxNorm: 219739 Tablet(s) TAKE ONE TABLET BY MOUTH THREE TIMES A DAY OR EVERY 6 HOURS NEEDED FOR ANXIETY 02/04/2016 05/08/2016 Inactive Synthroid 125 mcg tablet RxNorm: 665866 TAKE ONE TABLET BY MOUTH TWICE WEEKLY 01/11/2016 02/24/2016 Inactive Synthroid 112 mcg tablet RxNorm: 816998 TAKE ONE TABLET BY MOUTH FIVE DAYS A WEEK 01/11/2016 02/24/2016 Inactive Wellbutrin 75 mg tablet RxNorm: 530245 TAKE ONE TABLET BY MOUTH TWICE A DAY 01/11/2016 05/02/2016 Inactive Ativan 1 mg tablet RxNorm: 514974 TAKE ONE TABLET BY MOUTH THREE TIMES A DAY OR EVERY 6 HOURS NEEDED 12/03/2015 12/27/2015 Inactive Lipitor 10 mg tablet RxNorm: 194327 TAKE ONE TABLET BY MOUTH EVERY DAY 12/03/2015 08/28/2016 Inactive Ativan 1 mg tablet RxNorm: 147393 Tablet(s) TAKE ONE TABLET BY MOUTH THREE TIMES A DAY AND TAKE ONE TABLET BY MOUTH EVERY 6 HOURS NEEDED FOR ANXIETY 12/03/2015 12/02/2015 Inactive (Response to an electronic controlled substance refill request - RxReferenceNumber: [id number]) Wellbutrin 75 mg tablet RxNorm: 124161 1 Tablet(s) PO BID 11/13/2015 01/10/2016 Inactive Ativan 1 mg tablet RxNorm: 642953 Tablet(s) TAKE ONE TABLET BY MOUTH THREE TIMES A DAY AND TAKE ONE TABLET BY MOUTH EVERY 6 HOURS NEEDED FOR ANXIETY 09/23/2015 10/30/2015 Inactive (Response to an electronic controlled substance refill request - RxReferenceNumber: [id number]) buspirone 5 mg tablet RxNorm: 433636 TAKE ONE-HALF TABLET BY MOUTH TWICE A DAY 08/18/2015 03/01/2016 Inactive ceftriaxone 500 mg solution for injection RxNorm: 1913117 Inj 07/23/2015 07/23/2015 Inactive Zithromax Z-Que 250 mg tablet RxNorm: 784935 1 Tablet(s) PO UD 07/23/2015 07/27/2015 Inactive ZPACK buspirone 5 mg tablet RxNorm: 662049 1 Tablet(s) PO daily 07/06/2015 11/27/2018 Inactive buspirone 5 mg tablet RxNorm: 098461 1/2 Tablet(s) PO BID 05/26/2015 07/05/2015 Inactive Lipitor 10 mg tablet RxNorm: 396286 TAKE ONE TABLET BY MOUTH EVERY DAY 04/23/2015 10/19/2015 Inactive Ativan 1 mg tablet RxNorm: 456824 Tablet(s) TAKE ONE TABLET BY MOUTH THREE TIMES A DAY AND TAKE ONE TABLET BY MOUTH EVERY 6 HOURS NEEDED FOR ANXIETY 02/23/2015 04/01/2015 Inactive (Response to an electronic controlled substance refill request - RxReferenceNumber: [id number]) Synthroid 125 mcg tablet RxNorm: 209358 1 Tablet(s) PO UD twice weekly 12/10/2014 06/07/2015 Inactive Synthroid 112 mcg tablet RxNorm: 716283 1 Tablet(s) PO UD TAKE ONE TABLET BY MOUTH 5 days a week 12/10/2014 12/04/2015 Inactive Lexapro 20 mg tablet RxNorm: 882903 1 Tablet(s) PO daily 11/26/2014 11/12/2015 Inactive Lipitor 10 mg tablet RxNorm: 290756 TAKE ONE TABLET BY MOUTH EVERY DAY 10/21/2014 04/18/2015 Inactive amoxicillin 500 mg capsule RxNorm: 396597 1 Capsule(s) PO TID 10/15/2014 10/21/2014 Inactive take probiotic BID x 7 days during abt period amoxicillin 500 mg capsule RxNorm: 641807 1 Capsule(s) PO TID 10/15/2014 10/14/2014 Inactive take probiotic BID x 7 days during abt period Ativan 1 mg tablet RxNorm: 038331 TAKE ONE TABLET BY MOUTH THREE TIMES A DAY AND TAKE ONE TABLET BY MOUTH EVERY 6 HOURS NEEDED FOR ANXIETY 08/21/2014 09/28/2014 Inactive (Response to an electronic controlled substance refill request - RxReferenceNumber: [id number]) Ativan 1 mg tablet RxNorm: 700748 1 Tablet(s) PO tid and Q6 PRN as needed 08/18/2014 08/21/2014 Inactive doxycycline hyclate 100 mg tablet RxNorm: 477942 1 Tablet(s) PO BID 04/23/2014 05/25/2015 Inactive prednisone 10 mg tablets in a dose pack RxNorm: 020041 1 Tablet(s) PO 02/14/2014 05/25/2015 Inactive Kenalog 40 mg/mL suspension for injection RxNorm: 9427710 1 Milliliter(s) Inj 02/11/2014 02/11/2014 Inactive Keflex 500 mg capsule RxNorm: 005605 1 Capsule(s) PO TID 01/21/2014 01/27/2014 Inactive Kenalog 40 mg/mL suspension for injection RxNorm: 7368527 Milliliter(s) Inj 01/21/2014 01/21/2014 Inactive Synthroid 112 mcg tablet RxNorm: 216625 1 Tablet(s) PO daily TAKE ONE TABLET BY MOUTH EVERY DAY 12/05/2013 11/29/2014 Inactive Ativan 1 mg tablet RxNorm: 091539 1 Tablet(s) PO Q6 PRN 11/05/2013 02/02/2014 Inactive Lexapro 20 mg tablet RxNorm: 537798 1 Tablet(s) PO daily 11/05/2013 11/04/2013 Inactive Lexapro 20 mg tablet RxNorm: 532647 1 Tablet(s) PO daily 11/05/2013 10/30/2014 Inactive Lipitor 10 mg tablet RxNorm: 088846 1 Tablet(s) PO QPM TAKE ONE TABLET BY MOUTH EVERY DAY 09/30/2013 10/20/2014 Inactive Lexapro 20 mg tablet RxNorm: 502183 1 Tablet(s) PO daily 09/30/2013 11/04/2013 Inactive Synthroid 125 mcg tablet RxNorm: 387304 1 Tablet(s) PO daily 09/10/2013 12/04/2013 Inactive Synthroid 100 mcg tablet RxNorm: 336532 1 Tablet(s) PO daily TAKE ONE TABLET BY MOUTH EVERY DAY 09/06/2013 09/09/2013 Inactive Lipitor 10 mg tablet RxNorm: 316915 Tablet(s) PO TAKE ONE TABLET BY MOUTH EVERY DAY 08/15/2013 09/29/2013 Inactive Synthroid 100 mcg tablet RxNorm: 604276 1 Tablet(s) PO daily TAKE ONE TABLET BY MOUTH EVERY DAY 04/26/2013 09/05/2013 Inactive Ativan 1 mg tablet RxNorm: 538215 1 Tablet(s) PO Q6 PRN 03/13/2013 No Stop Date Active Synthroid 100 mcg tablet RxNorm: 836406 1 Tablet(s) PO daily TAKE ONE TABLET BY MOUTH EVERY DAY 03/13/2013 04/25/2013 Inactive Lexapro 20 mg tablet RxNorm: 762443 1/2 Tablet(s) PO BID 03/13/2013 09/29/2013 Inactive Synthroid 112 mcg tablet RxNorm: 624352 Tablet(s) PO TAKE ONE TABLET BY MOUTH EVERY DAY 01/08/2013 03/12/2013 Inactive Lexapro 20 mg tablet RxNorm: 549734 Tablet(s) PO TAKE 1/2 TABLET EVERY MORNING AND TAKE ONE TABLET BY MOUTH AT BEDTIME 10/18/2012 03/12/2013 Inactive Lipitor 20 mg tablet RxNorm: 106908 1/2 Tablet(s) PO daily 08/20/2012 02/04/2013 Inactive Lipitor 10 mg tablet RxNorm: 071877 1 Tablet(s) PO daily 05/23/2012 08/19/2012 Inactive Synthroid 112 mcg tablet RxNorm: 978025 1 Tablet(s) PO daily 12/16/2011 01/07/2013 Inactive Synthroid 112 mcg Tab RxNorm: 756246 1 Tablet(s) PO daily 12/16/2011 12/15/2011 Inactive Lipitor 10 mg tablet RxNorm: 310588 1 Tablet(s) PO daily 12/15/2011 05/22/2012 Inactive Synthroid 112 mcg Tab RxNorm: 770456 1 Tablet(s) PO every other day 11/09/2011 12/15/2011 Inactive every other day Synthroid 112 mcg Tab RxNorm: 433830 1 Tablet(s) PO every other day 10/21/2011 11/08/2011 Inactive every other day Synthroid 125 mcg Tab RxNorm: 592914 1 Tablet(s) PO every other day 10/21/2011 12/16/2011 Inactive every other day Lexapro 20 mg tablet RxNorm: 477430 1.5 Tablet(s) PO daily 1/2 pill in AM and 1 pill at bedtime 09/22/2011 04/18/2012 Inactive 1/2 q am 1 q hs diazepam 5 mg Tab RxNorm: 744740 1 Tablet(s) PO daily 1 tab bid prn 09/21/2011 05/17/2012 Inactive Lexapro 20 mg Tab RxNorm: 096590 1.5 Tablet(s) PO daily 1/2 pill in AM and 1 pill at bedtime 08/22/2011 09/21/2011 Inactive diazepam 5 mg Tab RxNorm: 279068 1 Tablet(s) PO daily 1 tab bid prn 06/20/2011 09/20/2011 Inactive diazepam 5 mg Tab RxNorm: 528281 1 Tablet(s) PO daily 1 tab bid prn 06/20/2011 06/19/2011 Inactive diazepam 5 mg Tab RxNorm: 278184 1 Tablet(s) PO daily 1 tab bid prn 06/17/2011 06/19/2011 Inactive Lipitor 10 mg Tab RxNorm: 838178 1 Tablet(s) PO daily 05/31/2011 11/26/2011 Inactive diazepam 5 mg Tab RxNorm: 481863 1 Tablet(s) PO BID 1 tab bid prn 04/21/2011 05/20/2011 Inactive Calcium 600 + D(3) Oral RxNorm: Oral No Start Date Active Menest 0.625 mg Tab RxNorm: 635973 1 Tablet(s) PO daily No Start Date 06/16/2011 Inactive Synthroid 125 mcg tablet RxNorm: 482800 Tablet(s) PO No Start Date 09/09/2013 Inactive Ativan 1 mg tablet RxNorm: 277172 1 Tablet(s) PO Q6 PRN No Start Date 08/21/2011 Inactive aspirin 81 mg Tab, Delayed Release RxNorm: 8463898 1 Tablet(s) PO daily No Start Date 09/29/2013 Inactive Lexapro 10 mg Tab RxNorm: 989102 1 Tablet(s) PO daily No Start Date 08/22/2011 Inactive prednisone 10 mg tablets in a dose pack RxNorm: 981735 1 Tablet(s) PO No Start Date 02/13/2014 Inactive Synthroid 112 mcg Tab RxNorm: 623495 Tablet(s) PO tues/thurs/sat/sun No Start Date 10/20/2011 Inactive lorazepam 1 mg Tab RxNorm: 561929 Tablet(s) PO Q6 PRN No Start Date 11/04/2013 Inactive Lipitor 20 mg tablet RxNorm: 358739 1/2 Tablet(s) PO daily No Start Date 08/20/2012 Inactive Vitamin D2 oral RxNorm: oral No Start Date 09/29/2013 Inactive Synthroid 125 mcg Tab RxNorm: 230251 1 Tablet(s) PO No Start Date 10/20/2011 Inactive synthroid 112 mcg e thur sat sun Medication Administered Medication Codes Instructions Start Date Status Kenalog 40 mg/mL suspension for injection RxNorm: 7325842 Milliliter 10/08/2018 No longer Active Kenalog 40 mg/mL suspension for injection RxNorm: 7707247 1Milliliter 09/11/2018 No longer Active Kenalog 40 mg/mL suspension for injection RxNorm: 0116280 1Milliliter 09/05/2016 No longer Active ceftriaxone 500 mg solution for injection RxNorm: 2986953 07/23/2015 No longer Active Kenalog 40 mg/mL suspension for injection RxNorm: 6168207 1Milliliter 02/11/2014 No longer Active Kenalog 40 mg/mL suspension for injection RxNorm: 4310385 Milliliter 01/21/2014 No longer Active Immunizations Vaccine [...] Pelvic and perineal pain ICD-10: R10.2 ICD-9: [id number] 02/16/2017 Acute vaginitis ICD-10: N76.0 ICD-9: 623.5 [...] Ord30 C/HDL 3.0 Ratio 11/26/2018 Free T4 Dwy181 FREE T4 0.98 ng/dL 11/26/2018 Cbc With [...] 29.6 pg 11/26/2018 Cbc With Differential Ord2 [place]% 7.7 % 11/26/2018 Cbc With Differential Ord2 [...] 1.41 K/ul 11/26/2018 Cbc With Differential Ord2 [place] ABS# 0.5 K/ul 11/26/2018 Cbc With Differential Ord2 Eos ABS# 0.2 K/ul 11/26/2018 Cbc With Differential Ord2 Baso ABS# 0.1 K/ul 11/26/2018 Comp Metabolic Pwi387 NA 140 mEq/L 11/26/2018 Comp Metabolic Zyl154 K 4.4 mEq/L 11/26/2018 Comp Metabolic Eye878 CL 104 mEq/L 11/26/2018 Comp Metabolic Atz735 CO2 28.0 mEq/L 11/26/2018 Comp Metabolic Eek631 ANION GAP 12 11/26/2018 Comp Metabolic Bed876 GLUCOSE 91 mg/dL 11/26/2018 Comp Metabolic Zio576 Creat 0.9 mg/dL 11/26/2018 Comp Metabolic Gfm657 eGFR 66 ml/min/1.73m2 11/26/2018 Comp Metabolic Ich581 BUN 15 mg/dL 11/26/2018 Comp Metabolic Fnv516 B/C Ratio 16.7 Ratio 11/26/2018 Comp Metabolic Cjf949 CALCIUM 9.3 mg/dL 11/26/2018 Comp Metabolic Kfk314 ALK PHOS 81 U/L 11/26/2018 Comp Metabolic Bsp717 AST(SGOT) 14 U/L 11/26/2018 Comp Metabolic Ntm572 ALT(SGPT) 12 U/L 11/26/2018 Comp Metabolic Lhd125 BILI T 0.7 mg/dL 11/26/2018 Comp Metabolic Qdc100 ALBUMIN 4.1 g/dL 11/26/2018 Comp Metabolic Ghr234 TPRO 6.7 g/dL 11/26/2018 Comp Metabolic Afp850 GLOB 2.6 g/dL 11/26/2018 Comp Metabolic Xyt886 A/G Ratio 1.5 Ratio 11/26/2018 Comp Metabolic Mrc738 Osmo 280 mOsmo 11/26/2018 Tsh Ord6 TSH [...] 29.7 pg 11/23/2017 Cbc With Differential Ord2 [place]% 9.0 % 11/23/2017 Cbc With Differential Ord2 [...] 1.77 K/ul 11/23/2017 Cbc With Differential Ord2 [place] ABS# 0.6 K/ul 11/23/2017 Cbc With Differential Ord2 Eos ABS# 0.2 K/ul 11/23/2017 Cbc With Differential Ord2 Baso ABS# 0.0 K/ul 11/23/2017 Tsh Ord6 TSH (3rd IS) 0.17 uIU/mL 11/23/2017 Free T4 Nix394 FREE T4 1.10 ng/dL 11/23/2017 Comp Metabolic Pzn571 NA 142 mEq/L 11/23/2017 Comp Metabolic Ysg638 K 4.4 mEq/L 11/23/2017 Comp Metabolic Jfr681 CL 109 mEq/L 11/23/2017 Comp Metabolic Gvm672 CO2 28.0 mEq/L 11/23/2017 Comp Metabolic Wlg465 ANION GAP 9 11/23/2017 Comp Metabolic Byv752 GLUCOSE 106 mg/dL 11/23/2017 Comp Metabolic Vyt612 Creat 0.9 mg/dL 11/23/2017 Comp Metabolic Oil780 eGFR 68 ml/min/1.73m2 11/23/2017 Comp Metabolic Xwd082 BUN 17 mg/dL 11/23/2017 Comp Metabolic Rsx889 B/C Ratio 19.3 Ratio 11/23/2017 Comp Metabolic Acz554 CALCIUM 9.0 mg/dL 11/23/2017 Comp Metabolic Pwo685 ALK PHOS 65 U/L 11/23/2017 Comp Metabolic Oji031 AST(SGOT) 18 U/L 11/23/2017 Comp Metabolic Ral451 ALT(SGPT) 16 U/L 11/23/2017 Comp Metabolic Csk228 BILI T 0.5 mg/dL 11/23/2017 Comp Metabolic Ezs682 ALBUMIN 4.2 g/dL 11/23/2017 Comp Metabolic Iqu134 TPRO 6.5 g/dL 11/23/2017 Comp Metabolic Skz013 GLOB 2.3 g/dL 11/23/2017 Comp Metabolic Ibt349 A/G Ratio 1.8 Ratio 11/23/2017 Comp Metabolic Goh654 Osmo 285 mOsmo 11/23/2017 Lipid Ord30 CHOL [...] hTSH II 4.83 uIU/mL 06/07/2017 Comp Metabolic Zxy614 NA 141 mEq/L 06/07/2017 Comp Metabolic Gws177 K 4.3 mEq/L 06/07/2017 Comp Metabolic Efh168 CL 106 mEq/L 06/07/2017 Comp Metabolic Kqf959 CO2 26.0 mEq/L 06/07/2017 Comp Metabolic Cjk799 ANION GAP 13 06/07/2017 Comp Metabolic Gef888 GLUCOSE 93 mg/dL 06/07/2017 Comp Metabolic Mjy807 Creat 0.9 mg/dL 06/07/2017 Comp Metabolic Gbr858 eGFR 65 ml/min/1.73m2 06/07/2017 Comp Metabolic Ido823 BUN 10 mg/dL 06/07/2017 Comp Metabolic Iqu168 B/C Ratio 11.0 Ratio 06/07/2017 Comp Metabolic Lop844 CALCIUM 8.9 mg/dL 06/07/2017 Comp Metabolic Rqf063 ALK PHOS 69 U/L 06/07/2017 Comp Metabolic Kos713 AST(SGOT) 18 U/L 06/07/2017 Comp Metabolic Vlw931 ALT(SGPT) 15 U/L 06/07/2017 Comp Metabolic Ltc544 BILI T 0.5 mg/dL 06/07/2017 Comp Metabolic Chs481 ALBUMIN 4.1 g/dL 06/07/2017 Comp Metabolic Drc052 TPRO 6.5 g/dL 06/07/2017 Comp Metabolic Rld872 GLOB 2.4 g/dL 06/07/2017 Comp Metabolic Ewn519 A/G Ratio 1.7 Ratio 06/07/2017 Comp Metabolic Bjx779 Osmo 280 mOsmo 06/07/2017 Cbc With Differential [...] 30.7 pg 06/07/2017 Cbc With Differential Ord2 [place]% 9.1 % 06/07/2017 Cbc With Differential Ord2 [...] 1.62 K/ul 06/07/2017 Cbc With Differential Ord2 [place] ABS# 0.5 K/ul 06/07/2017 Cbc With Differential Ord2 Eos ABS# 0.2 K/ul 06/07/2017 Cbc With Differential Ord2 Baso ABS# 0.0 K/ul 06/07/2017 Free T4 Xle005 FREE T4 0.92 ng/dL 06/07/2017 Tsh Ord6 hTSH II 1.07 uIU/mL 11/17/2016 Free T4 Otj879 FREE T4 1.02 ng/dL 11/17/2016 Lipid Ord30 CHOL 195 mg/dL 10/13/2016 Lipid Ord30 HDL 68.0 mg/dl 10/13/2016 Lipid Ord30 TRIG 69 mg/dL 10/13/2016 Lipid Ord30 LDL 113 mg/dL 10/13/2016 Lipid Ord30 C/HDL 2.9 Ratio 10/13/2016 Comp Metabolic Wkt267 NA 138 mEq/L 10/13/2016 Comp Metabolic Tur144 K 4.4 mEq/L 10/13/2016 Comp Metabolic Yny634 CL 102 mEq/L 10/13/2016 Comp Metabolic Hnx500 CO2 29.0 mEq/L 10/13/2016 Comp Metabolic Kze092 ANION GAP 11 10/13/2016 Comp Metabolic Sxk911 GLUCOSE 85 mg/dL 10/13/2016 Comp Metabolic Vgz448 Creat 1.0 mg/dL 10/13/2016 Comp Metabolic Mtv734 eGFR 59 ml/min/1.73m2 10/13/2016 Comp Metabolic Jvb306 BUN 21 mg/dL 10/13/2016 Comp Metabolic Ops340 B/C Ratio 21.2 Ratio 10/13/2016 Comp Metabolic Bxv531 CALCIUM 9.7 mg/dL 10/13/2016 Comp Metabolic Dxo801 ALK PHOS 70 U/L 10/13/2016 Comp Metabolic Vho191 AST(SGOT) 17 U/L 10/13/2016 Comp Metabolic Jit950 ALT(SGPT) 14 U/L 10/13/2016 Comp Metabolic Lbi147 BILI T 0.9 mg/dL 10/13/2016 Comp Metabolic Jsi879 ALBUMIN 4.4 g/dL 10/13/2016 Comp Metabolic Txl487 TPRO 7.1 g/dL 10/13/2016 Comp Metabolic Pyk281 GLOB 2.7 g/dL 10/13/2016 Comp Metabolic Hdv872 A/G Ratio 1.6 Ratio 10/13/2016 Comp Metabolic Piy747 Osmo 278 mOsmo 10/13/2016 Cbc With Differential [...] 29.7 pg 10/13/2016 Cbc With Differential Ord2 [place]% 7.7 % 10/13/2016 Cbc With Differential Ord2 [...] 1.43 K/ul 10/13/2016 Cbc With Differential Ord2 [place] ABS# 0.5 K/ul 10/13/2016 Cbc With Differential Ord2 Eos ABS# 0.1 K/ul 10/13/2016 Cbc With Differential Ord2 Baso ABS# 0.0 K/ul 10/13/2016 Free T4 Wie144 FREE T4 1.31 ng/dL 08/17/2016 Tsh Ord6 hTSH II 0.64 uIU/mL 08/17/2016 Free T4 Yxd836 FREE T4 1.49 ng/dL 05/10/2016 Comp Metabolic Onj273 NA 139 mEq/L 05/10/2016 Comp Metabolic Fjn594 K 4.5 mEq/L 05/10/2016 Comp Metabolic Kbs148 CL 104 mEq/L 05/10/2016 Comp Metabolic Tct044 CO2 24.0 mEq/L 05/10/2016 Comp Metabolic Zyq576 ANION GAP 16 05/10/2016 Comp Metabolic Xbc919 GLUCOSE 87 mg/dL 05/10/2016 Comp Metabolic Cgq841 Creat 0.9 mg/dL 05/10/2016 Comp Metabolic Htr608 eGFR 71 ml/min/1.73m2 05/10/2016 Comp Metabolic Wex057 BUN 12 mg/dL 05/10/2016 Comp Metabolic Vtc731 B/C Ratio 14.1 Ratio 05/10/2016 Comp Metabolic Jli717 CALCIUM 9.6 mg/dL 05/10/2016 Comp Metabolic Qoq685 ALK PHOS 89 U/L 05/10/2016 Comp Metabolic Ilp397 AST(SGOT) 17 U/L 05/10/2016 Comp Metabolic Cjj148 ALT(SGPT) 17 U/L 05/10/2016 Comp Metabolic Bqc978 BILI T 0.9 mg/dL 05/10/2016 Comp Metabolic Ipq718 ALBUMIN 4.2 g/dL 05/10/2016 Comp Metabolic Ona344 TPRO 6.7 g/dL 05/10/2016 Comp Metabolic Oan990 GLOB 2.5 g/dL 05/10/2016 Comp Metabolic Wlm224 A/G Ratio 1.7 Ratio 05/10/2016 Comp Metabolic Tdx693 Osmo 277 mOsmo 05/10/2016 Cbc With Differential [...] 29.1 pg 05/10/2016 Cbc With Differential Ord2 [place]% 8.3 % 05/10/2016 Cbc With Differential Ord2 [...] 1.57 K/ul 05/10/2016 Cbc With Differential Ord2 [place] ABS# 0.6 K/ul 05/10/2016 Cbc With Differential Ord2 Eos ABS# 0.2 K/ul 05/10/2016 Cbc With Differential Ord2 Baso ABS# 0.0 K/ul 05/10/2016 Tsh Ord6 hTSH II 0.03 uIU/mL 05/10/2016 Free T4 Val899 FREE T4 1.67 ng/dL 02/18/2016 Tsh Ord6 hTSH II 0.06 uIU/mL 02/18/2016 Comp Metabolic Oom448 NA 138 mEq/L 02/18/2016 Comp Metabolic Yeb279 K 4.5 mEq/L 02/18/2016 Comp Metabolic Qnt466 CL 104 mEq/L 02/18/2016 Comp Metabolic Ovb499 CO2 26.0 mEq/L 02/18/2016 Comp Metabolic Bhj721 ANION GAP 13 02/18/2016 Comp Metabolic Dcn985 GLUCOSE 88 mg/dL 02/18/2016 Comp Metabolic Oit247 Creat 0.9 mg/dL 02/18/2016 Comp Metabolic Mjr774 eGFR 69 ml/min/1.73m2 02/18/2016 Comp Metabolic Cho386 BUN 14 mg/dL 02/18/2016 Comp Metabolic Cwl822 B/C Ratio 16.1 Ratio 02/18/2016 Comp Metabolic Syf062 CALCIUM 9.4 mg/dL 02/18/2016 Comp Metabolic Uql613 ALK PHOS 95 U/L 02/18/2016 Comp Metabolic Kzj023 AST(SGOT) 19 U/L 02/18/2016 Comp Metabolic Lis767 ALT(SGPT) 18 U/L 02/18/2016 Comp Metabolic Dih385 BILI T 0.7 mg/dL 02/18/2016 Comp Metabolic Rgu343 ALBUMIN 4.4 g/dL 02/18/2016 Comp Metabolic Orf234 TPRO 6.9 g/dL 02/18/2016 Comp Metabolic Xfl075 GLOB 2.5 g/dL 02/18/2016 Comp Metabolic Ecw475 A/G Ratio 1.7 Ratio 02/18/2016 Comp Metabolic Eig278 Osmo 276 mOsmo 02/18/2016 Lipid Ord30 CHOL [...] 28.9 pg 02/18/2016 Cbc With Differential Ord2 [place]% 10.5 % 02/18/2016 Cbc With Differential Ord2 [...] 1.08 K/ul 02/18/2016 Cbc With Differential Ord2 [place] ABS# 0.6 K/ul 02/18/2016 Cbc With Differential Ord2 Eos ABS# 0.0 K/ul 02/18/2016 Cbc With Differential Ord2 Baso ABS# 0.0 K/ul 02/18/2016 Comp Metabolic Byq330 NA 136 mEq/L 06/08/2015 Comp Metabolic Ptl147 K 3.9 mEq/L 06/08/2015 Comp Metabolic Odk871 CL 103 mEq/L 06/08/2015 Comp Metabolic Ohf913 CO2 25.0 mEq/L 06/08/2015 Comp Metabolic Dth347 ANION GAP 12 06/08/2015 Comp Metabolic Jzq362 GLUCOSE 91 mg/dL 06/08/2015 Comp Metabolic Cvs403 Creat 0.9 mg/dL 06/08/2015 Comp Metabolic Vrd385 eGFR 68 ml/min/1.73m2 06/08/2015 Comp Metabolic Qbm133 BUN 10 mg/dL 06/08/2015 Comp Metabolic Mic116 B/C Ratio 11.4 Ratio 06/08/2015 Comp Metabolic Gnd253 CALCIUM 9.4 mg/dL 06/08/2015 Comp Metabolic Xju262 ALK PHOS 88 U/L 06/08/2015 Comp Metabolic Zpf926 AST(SGOT) 20 U/L 06/08/2015 Comp Metabolic Vqx744 ALT(SGPT) 18 U/L 06/08/2015 Comp Metabolic Ivf363 BILI T 0.8 mg/dL 06/08/2015 Comp Metabolic Baf288 ALBUMIN 4.4 g/dL 06/08/2015 Comp Metabolic Nbs836 TPRO 7.0 g/dL 06/08/2015 Comp Metabolic Erz252 GLOB 2.6 g/dL 06/08/2015 Comp Metabolic Xne833 A/G Ratio 1.7 Ratio 06/08/2015 Comp Metabolic Xys887 Osmo 271 mOsmo 06/08/2015 Tsh Ord6 hTSH [...] Ord2 RDW 14.4 % 06/08/2015 LYME EIA [id number] LYME EIA 0.24 04/25/2014 TULAREM AB [id number] TULAREM AB <1:20 04/24/2014 RMSF IFA [id number] IGG RMSF <1:16 04/24/2014 RMSF IFA [id number] IGM RMSF <1:10 04/24/2014 E CHAFF AB [id number] IGG E CHFF <1:16 04/24/2014 E CHAFF AB [id number] IGM E CHFF <1:10 04/24/2014 ICT OCCULT [id number] ICT OCCULT NEG 10/11/2013 Review of Systems [...] J3301 09/11/2018 URINALYSIS NONAUTO W/O SCOPE CPT-4: 41004 05/07/2018 ADMIN INFLUENZA VIRUS VAC CPT-4: G0008 04/24/2018 FLU VACC PRSV FREE INC ANTIG CPT-4: 82861 04/24/2018 PPPS, SUBSEQ VISIT CPT- 4: G0439 11/28/2017 ADMIN INFLUENZA VIRUS VAC CPT-4: G0008 06/07/2017 FLU VACC PRSV FREE INC ANTIG CPT-4: 41830 06/07/2017 PPPS, SUBSEQ VISIT CPT- 4: G0439 11/17/2016 TRIAMCINOLONE ACET INJ NOS CPT-4: J3301 09/05/2016 PPPS, SUBSEQ VISIT CPT- 4: G0439 11/13/2015 PNEUMOCOCCAL VACC 13 STEPHANIE IM Formatting Model/CDA Sections, Assigned to/Lila Colon SNOMED CT: 02769733 CPT-4: 53611Oojvrwd 11/13/2015 ADMIN PNEUMOCOCCAL VACCINE SNOMED CT: 61855781 CPT-4: G0009 11/13/2015 ROCEPHIN, PER 250 MG CPT- 4: J0696 07/23/2015 URINALYSIS NONAUTO W/O SCOPE CPT-4: 49459 10/10/2014 ROUTINE VENIPUNCTURE CPT- 4: 76059 04/23/2014 Pneumococcal Polysaccharide Vaccine, 23-Valent, Ad CPT-4: 12890 04/15/2014 ADMIN INFLUENZA VIRUS VAC CPT-4: G0008 04/15/2014 FLU VAC NO PRSV 4 STEPHANIE 3 YRS+ CPT-4: 31582 04/15/2014 ADMIN PNEUMOCOCCAL VACCINE SNOMED CT: 63285115 CPT-4: G0009 04/15/2014 THER/PROPH/DIAG INJ SC/IM CPT-4: 80388 02/11/2014 TRIAMCINOLONE ACET INJ NOS CPT-4: J3301 02/11/2014 TRIAMCINOLONE ACET INJ NOS CPT-4: J3301 01/21/2014 INITIAL PREVENTIVE EXAM CPT-4: G0402 09/30/2013 PRESCRIP TRANSMIT VIA ERX SY CPT-4: G8553 03/13/2013 Vital Signs Date Vital 11/28/2018 Blood Pressure 1: 132/74 Code: 8480-6 BMI: 28.1 Code: 08466-0 Heart Rate 1: 73 bpm Height: 5'5" SpO2: 94% Waist Measure (cm): 97 cm Weight: 169 lbs 10/08/2018 Blood Pressure 1: 140/82 Code: 8480-6 Heart Rate 1: 80 bpm Height: 5'5" SpO2: 95% Temperature: 37.0 (C) / 98.6 (F) Weight: 09/11/2018 Blood Pressure 1: 114/76 Code: 8480-6 BMI: 29.3 Code: 86243-3 Heart Rate 1: 80 bpm Height: 5'5" SpO2: 95% Temperature: 36.3 (C) / 97.3 (F) Weight: 176 lbs 07/12/2018 Blood Pressure 1: 126/76 Code: 8480-6 BMI: 29.3 Code: 86590-5 Heart Rate 1: 70 bpm Height: 5'5" SpO2: 96% Weight: 176 lbs 05/07/2018 Blood Pressure 1: 118/72 Code: 8480-6 BMI: 29.5 Code: 83970-6 Heart Rate 1: 71 bpm Height: 5'5" SpO2: 98% Weight: 177 lbs 02/21/2018 Blood Pressure 1: 120/78 Code: 8480-6 BMI: 29.0 Code: 66623-1 Heart Rate 1: 68 bpm Height: 5'5" SpO2: 96% Weight: 174 lbs 11/28/2017 Blood Pressure 1: 122/98 Code: 8480-6 BMI: 31.0 Code: 81658-0 Heart Rate 1: 89 bpm Height: 5'5" SpO2: 98% Waist Measure (cm): 91 cm Weight: 186 lbs 08/29/2017 Blood Pressure 1: 146/80 Code: 8480-6 BMI: 29.5 Code: 25376-5 Heart Rate 1: 68 bpm Height: 5'5" SpO2: 98% Temperature: 36.6 (C) / 97.8 (F) Weight: 177 lbs 06/13/2017 Blood Pressure 1: 138/76 Code: 8480-6 BMI: 29.6 Code: 97168-0 Heart Rate 1: 63 bpm Height: 5'5" SpO2: 95% Weight: 178 lbs 02/16/2017 Blood Pressure 1: 128/80 Code: 8480-6 BMI: 29.9 Code: 96303-6 Heart Rate 1: 77 bpm Height: 5'5" SpO2: 96% Weight: 179 lbs 8 oz 02/06/2017 Blood Pressure 1: 140/80 Code: 8480-6 BMI: 29.8 Code: 89737-7 Heart Rate 1: 72 bpm Height: 5'5" SpO2: 97% Weight: 179 lbs 11/17/2016 Blood Pressure 1: 130/72 Code: 8480-6 BMI: 29.6 Code: 66669-8 Heart Rate 1: 62 bpm Height: 5'5" SpO2: 98% Waist Measure (cm): 91 cm Weight: 178 lbs 10/12/2016 Blood Pressure 1: 128/78 Code: 8480-6 BMI: 28.5 Code: 67747-8 Heart Rate 1: 62 bpm Height: 5'5" SpO2: 97% Weight: 171 lbs 09/05/2016 Blood Pressure 1: 122/70 Code: 8480-6 BMI: 28.0 Code: 54493-3 Heart Rate 1: 65 bpm Height: 5'5" SpO2: 94% Weight: 168 lbs 06/21/2016 Blood Pressure 1: 120/82 Code: 8480-6 BMI: 28.3 Code: 39618-6 Heart Rate 1: 65 bpm Height: 5'5" SpO2: 97% Weight: 170 lbs 05/24/2016 Blood Pressure 1: 136/80 Code: 8480-6 BMI: 28.1 Code: 84795-9 Heart Rate 1: 71 bpm Height: 5'5" SpO2: 96% Weight: 169 lbs 05/10/2016 Blood Pressure 1: 120/82 Code: 8480-6 BMI: 27.6 Code: 78381-8 Heart Rate 1: 86 bpm Height: 5'5" SpO2: 95% Weight: 166 lbs 05/03/2016 Blood Pressure 1: 124/78 Code: 8480-6 BMI: 28.1 Code: 41794-4 Heart Rate 1: 88 bpm Height: 5'5" SpO2: 97% Weight: 169 lbs 11/13/2015 Blood Pressure 1: 130/60 Code: 8480-6 BMI: 30.0 Code: 30079-9 Heart Rate 1: 7 bpm Height: 5'5" Waist Measure (cm): 97 cm Weight: 180 lbs 07/23/2015 Blood Pressure 1: 124/70 Code: 8480-6 BMI: 29.6 Code: 52085-8 Heart Rate 1: 74 bpm Height: 5'5" SpO2: 96% Temperature: 36.7 (C) / 98.1 (F) Weight: 178 lbs 07/06/2015 Blood Pressure 1: 138/78 Code: 8480-6 BMI: 29.6 Code: 79758-7 Heart Rate 1: 84 bpm Height: 5'5" SpO2: 96% Weight: 178 lbs 05/26/2015 Blood Pressure 1: 122/80 Code: 8480-6 BMI: 29.6 Code: 68604-1 Heart Rate 1: 84 bpm Height: 5'5" Weight: 178 lbs 02/16/2015 Blood Pressure 1: 124/82 Code: 8480-6 BMI: 29.0 Code: 62772-3 Heart Rate 1: 68 bpm Height: 5'5" Weight: 174 lbs 12/10/2014 Blood Pressure 1: 112/64 Code: 8480-6 BMI: 28.6 Code: 30073-4 Heart Rate 1: 80 bpm Height: 5'5" Weight: 172 lbs 10/16/2014 Blood Pressure 1: 128/84 Code: 8480-6 Heart Rate 1: 64 bpm Weight: 172 lbs 10/09/2014 Blood Pressure 1: 136/90 Code: 8480-6 BMI: 28.6 Code: 98612-9 Heart Rate 1: 76 bpm Height: 5'5" Weight: 172 lbs 08/26/2014 Blood Pressure 1: 118/72 Code: 8480-6 BMI: 29.0 Code: 67170-7 Heart Rate 1: 76 bpm Height: 5'5" Weight: 174 lbs 05/16/2014 Blood Pressure 1: 110/72 Code: 8480-6 BMI: 29.0 Code: 18427-8 Height: 5'5" Weight: 174 lbs 04/23/2014 Blood Pressure 1: 124/70 Code: 8480-6 BMI: 29.0 Code: 88609-8 Heart Rate 1: 72 bpm Height: 5'5" Weight: 174 lbs 04/15/2014 Temperature: 36.5 (C) / 97.7 (F) 01/21/2014 Blood Pressure 1: 98/62 Code: 8480-6 BMI: 29.0 Code: 42755- 5 Heart Rate 1: 84 bpm Height: 5'5" Temperature: 37.1 (C) / 98.7 (F) Weight: 174 lbs 12/05/2013 Blood Pressure 1: 138/88 Code: 8480-6 BMI: 29.0 Code: 45250-7 Heart Rate 1: 60 bpm Height: 5'5" Weight: 174 lbs 11/05/2013 Blood Pressure 1: 118/80 Code: 8480-6 BMI: 28.8 Code: 08850-9 Heart Rate 1: 76 bpm Height: 5'5" Weight: 173 lbs 10/15/2013 Blood Pressure 1: 120/78 Code: 8480-6 BMI: 29.1 Code: 33934-2 Heart Rate 1: 88 bpm Height: 5'5" Weight: 175 lbs 09/30/2013 Blood Pressure 1: 112/84 Code: 8480-6 BMI: 29.1 Code: 78444-7 Heart Rate 1: 68 bpm Height: 5'5" Weight: 175 lbs 03/13/2013 Blood Pressure 1: 112/84 Code: 8480-6 BMI: 28.6 Code: 33661-7 Heart Rate 1: 64 bpm Height: 5'5" Weight: 173 lbs 10/04/2012 Blood Pressure 1: 120/72 Code: 8480-6 BMI: 28.0 Code: 32691-4 Heart Rate 1: 64 bpm Height: 5'5" Weight: 169 lbs 08/22/2011 Blood Pressure 1: 134/84 Code: 8480-6 BMI: 27.5 Code: 04462-9 Heart Rate 1: 68 bpm Height: 5'5" Respiratory Rate: 16 bpm Weight: 166 lbs 8 oz 06/17/2011 Blood Pressure 1: 120/76 Code: 8480-6 BMI: 27.0 Code: 14186-4 Heart Rate 1: 58 bpm Height: 5'5" [...] data Encounters Encounter Performer Location Codes Date 44376 EST. PATIENT, LEVEL III Diagnosis: Cough[ICD10: R05] Diagnosis: Acute bronchitis, unspecified[ICD10: J20.9] Suma Alvarado MD, [facility] CPT-4: 44801 10/08/2018 ([id number]) 74537 EST. PATIENT, LEVEL III Diagnosis: Cough[ICD10: R05] Diagnosis: Acute recurrent maxillary sinusitis[ICD10: J01.01] [facility] CPT-4: 96924 09/11/2018 69843 EST. PATIENT, LEVEL III Diagnosis: Pain in right hand[ICD10: M79.641] [facility] CPT-4: 50380 07/12/2018 ([id number]) 51085 EST. PATIENT, LEVEL II Diagnosis: Dysuria[ICD10: R30.0] Suma Alvarado MD, [facility] CPT-4: 55852 05/07/2018 28551 EST. PATIENT, LEVEL IV Diagnosis: Tinnitus, bilateral[ICD10: H93.13] Diagnosis: Other allergic rhinitis[ICD10: J30.89] Gina Alvarado MD, [facility] CPT- 4: 61013 02/21/2018 16347 EST. PATIENT, LEVEL III Diagnosis: Acute laryngopharyngitis[ICD10: J06.0] Diagnosis: Other allergic rhinitis[ICD10: J30.89] Gina Alvarado MD, [facility] CPT- 4: 32257 08/29/2017 ([id number]) 29106 EST. PATIENT, LEVEL IV Diagnosis: Postprocedural hypothyroidism[ICD10: E89.0] Diagnosis: Major depressive disorder, recurrent, moderate[ICD10: F33.1] Diagnosis: Generalized anxiety disorder[ICD10: F41.1] Elina Alvarado MD, [facility] CPT-4: 97530 06/13/2017 ([id number]) 73860 EST. PATIENT, LEVEL IV Diagnosis: Pelvic and perineal pain[ICD10: R10.2] Diagnosis: Acute vaginitis[ICD10: N76.0] Suma Alvarado MD, [facility] CPT-4: 16005 02/16/2017 ([id number]) 57180 EST. PATIENT, LEVEL III Diagnosis: Postprocedural hypothyroidism[ICD10: E89.0] Diagnosis: Major depressive disorder, recurrent, moderate[ICD10: F33.1] Elina Alvarado MD, [facility] CPT-4: 13964 02/06/2017 ([id number]) 83737 EST. PATIENT, LEVEL III Diagnosis: Generalized anxiety disorder[ICD10: F41.1] Elina Alvarado MD, [facility] CPT-4: 88636 10/12/2016 ([id number]) 53092 EST. PATIENT, LEVEL III Diagnosis: Cough[ICD10: R05] Diagnosis: Acute upper respiratory infection, unspecified[ICD10: J06.9] Suma Alvarado MD, [facility] CPT-4: 78845 09/05/2016 ([id number] 71216 EST. PATIENT, LEVEL III Diagnosis: Generalized anxiety disorder[ICD10: F41.1] Diagnosis: Major depressive disorder, recurrent, moderate[ICD10: F33.1] Diagnosis: Postprocedural hypothyroidism[ICD10: E89.0] Elina Alvarado MD, [facility] CPT-4: 24346 06/21/2016 ([id number] 20578 EST. PATIENT, LEVEL III Diagnosis: Major depressive disorder, recurrent, moderate[ICD10: F33.1] Elina Alvarado MD, [facility] CPT-4: 96553 05/24/2016 ([id number] 61937 EST. PATIENT, LEVEL III Diagnosis: Major depressive disorder, recurrent, moderate[ICD10: F33.1] Elina Alvarado MD, [facility] CPT-4: 42580 05/10/2016 ([id number] 30403 EST. PATIENT, LEVEL III Diagnosis: Generalized anxiety disorder[ICD10: F41.1] Diagnosis: Major depressive disorder, recurrent, moderate[ICD10: F33.1] Suma Alvarado MD, [facility] CPT-4: 50428 05/03/2016 ([id number]) 04609 EST. PATIENT, LEVEL III Diagnosis: Cough[ICD10: R05] Diagnosis: Acute upper respiratory infection, unspecified[ICD10: J06.9] Suma Alvarado MD, [facility] CPT-4: 91661 07/23/2015 ([id number] 90814 EST. PATIENT, LEVEL III Diagnosis: Hypothyroidism, unspecified[ICD10: E03.9] Diagnosis: Generalized anxiety disorder[ICD10: F41.1] Diagnosis: Other depressive episodes[ICD10: F32.8] Elina Alvarado MD, [facility] CPT-4: 03801 07/06/2015 ([id number]) 48329 EST. PATIENT, LEVEL IV Diagnosis: Generalized anxiety disorder[ICD10: F41.1] Diagnosis: Major depressive disorder, recurrent, unspecified[ICD10: F33.9] Elina Alvarado MD, [facility] CPT-4: 46324 05/26/2015 ([id number]) 73504 EST. PATIENT, LEVEL II Diagnosis: 2Nd degree burn of multiple fingers of right hand not including thumb[ICD9: 944.23] Suma Alvarado MD [facility] CPT-4: 85666 02/16/2015 ([id number]) 34247 EST. PATIENT, LEVEL IV Diagnosis: Hammertoe[ICD9: 735.4] Diagnosis: Foot pain[ICD9: 729.5] Diagnosis: HYPOTHYROIDISM[ICD9: 244.9] Elina Alvarado MD, [facility] CPT-4: 38773 12/10/2014 ([id number]) 05064 EST. PATIENT, LEVEL III Diagnosis: Urinary incontinence[ICD9: 788.30] Diagnosis: Pelvic pain in female[ICD9: 625.9] Elina Alvarado MD [facility] CPT- 4: 97428 10/16/2014 ([id number]) 80205 EST. PATIENT, LEVEL III Diagnosis: Urinary incontinence[ICD9: 788.30] Diagnosis: Pelvic pain in female[ICD9: 625.9] Suma Alvarado MD, [facility] CPT- 4: 28370 10/09/2014 ([id number]) 94832 EST. PATIENT, LEVEL III Diagnosis: HYPOTHYROIDISM[ICD9: 244.9] Elina Alvarado MD [facility] CPT-4: 47726 08/26/2014 ([id number]) 86646 EST. PATIENT, LEVEL III Diagnosis: Neck pain[ICD9: 723.1] Diagnosis: Muscle tension headache[ICD9: 307.81] Suma Alvarado MD [facility] CPT-4: 04634 05/16/2014 ([id number]) 67005 EST. PATIENT, LEVEL IV Diagnosis: Arthropod bite[ICD9: 919.4] Diagnosis: Poison gilmer dermatitis[ICD9: 692.6] Diagnosis: Arthralgia[ICD9: 719.40] Diagnosis: Myalgia[ICD9: 729.1] Elina Alvarado MD, [facility] CPT-4: 90644 04/23/2014 ([id number]) 42264 EST. PATIENT, LEVEL III Diagnosis: ACUTE URI[ICD9: 465.9] Diagnosis: COUGH[ICD9: 786.2] Suma Alvarado MD, [facility] CPT-4: 59135 01/21/2014 ([id number]) 40878 EST. PATIENT, LEVEL III Diagnosis: HYPOTHYROIDISM[ICD9: 244.9] Diagnosis: GENERALIZED ANXIETY DISEASE[ICD9: 300.02] Elina Alvarado MD, [facility] CPT-4: 67527 12/05/2013 ([id number]) 93699 EST. PATIENT, LEVEL III Diagnosis: GENERALIZED ANXIETY DISEASE[ICD9: 300.02] Diagnosis: DEPRESSIVE DISORDER NEC[ICD9: 311] Elina Alvarado MD, [facility] CPT- 4: 67210 11/05/2013 ([id number]) 80117 EST. PATIENT, LEVEL III Diagnosis: HYPOTHYROIDISM[ICD9: 244.9] Elina Alvarado MD, [facility] CPT-4: 01268 10/15/2013 ([id number]) Miscellaneous no charge Diagnosis: Colon cancer screening[ICD9: V76.51] Elina Alvarado MD, [facility] CPT- 4: 24149 10/10/2013 ([id number]) 50675 EST. PATIENT, LEVEL IV Diagnosis: HYPOTHYROIDISM[ICD9: 244.9] Diagnosis: DEPRESSIVE DISORDER NEC[ICD9: 311] Diagnosis: GENERALIZED ANXIETY DISEASE[ICD9: 300.02] Diagnosis: HYPERLIPIDEMIA[ICD9: 272.4] Elina Alvarado MD, [facility] CPT-4: 44586 03/13/2013 ([id number]) 31867 EST. PATIENT, LEVEL IV Diagnosis: HYPERLIPIDEMIA[ICD9: 272.4] Diagnosis: HYPOTHYROIDISM[ICD9: 244.9] Diagnosis: GENERALIZED ANXIETY DISEASE[ICD9: 300.02] Diagnosis: DEPRESSIVE DISORDER NEC[ICD9: 311] Elina Alvarado MD, [facility] CPT- 4: 23303 10/04/2012 ([id number]) 12615 EST. PATIENT, LEVEL III Diagnosis: VICTOR HUGO (generalized anxiety disorder)[ICD9: 300.02] Diagnosis: Chronic depression[ICD9: 311] Elina Alvarado MD, [facility] CPT-4: 14597 08/22/2011 66640 EST. PATIENT, LEVEL IV Diagnosis: CHEST PAIN NEC[ICD9: 786.59] Diagnosis: HYPERLIPIDEMIA[ICD9: 272.4] Diagnosis: POSTSURGICAL HYPOTHYROIDISM[ICD9: 244.0] [facility] CPT-4: 80992 06/17/2011 Plan of Care Planned Activity Notes [...] DOPA paperwork for health care surrogate. 11/28/2018 Patient Education: Patient Medication Summary Completed 11/28/2018 Care Plan: Referral Order SNOMED-CT : [id number] Pending 11/28/2018 Visit Plan: Bronchitis - acute case of bronchitis identified. Pt has been given antibiotics, breathing treatments as appropriate, and pt has been instructed to call if symptoms are not improved, or if symptoms acutely worsen. 10/08/2018 Appointment: Suma Choi WPtel: [facility] (30 min) Complex 10/08/2018 Patient Education: Patient Medication Summary Completed 10/08/2018 Visit Plan: Sinusitis - Pt has acute infection - pain in face, maxillary region, Pt informed to use decongestant, RX given to patient, sinus rinses also recommended. Call if symptoms do not show improvement. 09/11/2018 Appointment: Suma Choi WPtel: [phone] (15 min) Moderate 09/11/2018 Patient Education: Patient Medication Summary Completed 09/11/2018 Visit Plan: Right hand pain - ongoing - will send for x-ray - The pt is to use prn antiinflammatories to manage acute pain. The patient is to call the office if the pain is worsening or does not improve. 07/12/2018 Appointment: Gina Kern WPtel: [facility]1 [facility] (15 min) Moderate 07/12/2018 Patient Education: Patient Medication Summary Completed 07/12/2018 Care Plan: X-RAY EXAM OF HAND LOINC : 62795-0 Pending 07/12/2018 Visit Plan: Dysuria- UA negative -symptoms resolved -instructed patient to continue with adequate fluid intake and call if symptoms return. Patient verbalized understanding of plan. 05/07/2018 Appointment: Suma Choi WPtel: [facility] (15 min) Moderate 05/07/2018 Patient Education: Patient Medication Summary Completed 05/07/2018 Appointment: Injection 04/24/2018 Patient Education: Patient Medication Summary Completed 04/24/2018 Referral: Peter Rubio [address] Referral Completed 03/22/2018 Visit Plan: Allergies [...] hearing testing 02/21/2018 Appointment: Gina Kern WPtel: [facility] (15 min) Moderate 02/21/2018 Patient Education: Patient Medication Summary Completed 02/21/2018 Care Plan: Referral Order SNOMED-CT : [id number] Pending 02/21/2018 Appointment: Elina Alvarado WPtel: [facility]4 [facility]66[facility] (15 min) Moderate 12/14/2017 Visit Plan: Medicare [...] Completed 11/28/2017 Appointment: [facility]el[phone] [facility] [facility] - Annual Wellness Visit 11/21/2017 Visit Plan: [...] allergy spray. 08/29/2017 Appointment: [facility]Ptel[phone] (15 min) Moderate 08/29/2017 Patient Education: [...] counseling. 06/13/2017 App[facility]ment: [phone] (15 min) Moderate 06/13/2017 Patient Education: Patient Medication Summary Completed 06/13/2017 Appointment: Injection 06/07/2017 Patient Education: Patient Medication Summary Completed 06/07/2017 Visit Plan: Pelvic pain-UA negative-pap done today in the office- will start patient on flagyl for bacterial vaginosis-instructed patient to call if symptoms do not resolve or if any worse. Patient verbalized understanding of plan. 02/16/2017 Appointment: Suma Choi WPtel: [phone] [phone] [place] (30 min) Complex 02/16/2017 Patient [...] current medications. 02/06/2017 Appointment: [facility]varado [facility]Ptel[phone] [place] (15 min) Moderate 02/06/2017 Patient Education: [...] care surrogate. 11/17/2016 Appointment: Gina Kern WPtel: [facility] [place] [address] - Annual Wellness Visit 11/17/2016 Patient Education: [...] current medications. 10/12/2016 Appointment: Elina Alvarado WPtel: [facility]0 [facility] (15 min) Moderate 10/12/2016 Patient Education: [...] J06.9 09/05/2016 Appointment: Suma Choi WPtel: [phone] [phone] (10 min) Simple 09/05/2016 Patient Education: [...] with lexapro 06/21/2016 Appointment: Elina Alvarado WPtel: [phone] [facility] (15 min) Moderate 06/21/2016 Patient Education: Patient Medication Summary Completed 06/21/2016 Visit Plan: Depression - improved with lexapro - continue with current treatment and counseling. 05/24/2016 Appointment: Elina Alvarado WPtel: [phone] [facility] [place] (15 min) Moderate 05/24/2016 Patient Education: Patient Medication Summary Completed 05/24/2016 Visit Plan: Depression - improved on the Lexapro - stop ativan - start on xanax 05/10/2016 Appointment: Elina Alvarado WPtel: [address] [facility] [place] (15 min) Moderate 05/10/2016 Patient [...] Completed 05/03/2016 Appointment: Suma Choi WPtel: [phone] [phone] [place] (15 min) Moderate 02/26/2016 Visit [...] and to maintain independece in the home. Xdpervwbsd-shrwwkuzqyhy-gxatef to wellbutrin Pneumonia 13 administered today in [...] and to maintain independece in the home. Ukfydvpsxr-vgiuctswjqeb-sdtwho to wellbutrin Pneumonia 13 administered today in the office 11/13/2015 Appointment: [facility] - Annual Wellness Visit 11/13/2015 Patient Education: Patient Medication Summary Completed 11/13/2015 Patient Education: Obesity Completed 11/13/2015 Care Plan: [employer] : 81236-2 Ordered 11/13/2015 Appointment: Lab Draw 08/10/2015 Visit [...] current medications. 07/06/2015 Appointment: Elina Alvarado WPtel: [address] [place], [place] [phone] [place] (30 min) Complex 07/06/2015 Patient Education: Patient Medication Summary Completed 07/06/2015 Visit Plan: Anxiety and depression uncontrolled-Dr Alvardao in to evaluate patient-plan to add buspar [...] upon discharge. 12/10/2014 Appointment: Elina Alvarado WPtel: [address] [place], [place] [phone] Surgical Clearance 12/10/2014 Patient Education: Patient Medication Summary Completed 12/10/2014 Visit Plan: Urinary incontinence and Pelvic discomfort - recommended pt to have evaluation by Dr. Brandt - pt agreeable to referral. Pt is to call if abdominal pain does not improve. 10/16/2014 Appointment: Elina Alvarado WPtel: [address] [place], [place] [phone] Follow up 10/16/2014 Patient Education: Patient Medication Summary Completed 10/16/2014 Care Plan: Referral Order SNOMED-CT : [id number] Ordered 10/16/2014 Patient Education: Patient Medication Summary Completed 10/10/2014 Visit Plan: Pelvic pain-history of mesh implant-recommend CT abd/pelvis to evaluate for any abnormality-refer to Dr Woods if pain does not improve Urinary incontinence-check UA with C&S if indicated 10/09/2014 Patient Education: Patient Medication Summary Completed 10/09/2014 Care Plan: CT ABD & PELV 1/> REGNS LOINC : 66698-3 Ordered 10/09/2014 Visit Plan: Hypothyroidism - pt with chronic hypothyroidism, continue with current medication, will monitor pt to signs or symptoms of lack of adequate supplementation. Pt is to continue with current dose of medication unless directed otherwise. Check labs at regular intervals wither q 3 months or q 6 months based on previous levels of control. 08/26/2014 Appointment: Elina Alvarado WPtel: [address] [place], [place] [phone] Follow up 08/26/2014 Patient Education: Patient Medication [...] with screening. 04/23/2014 Appointment: Elina Alvarado WPtel: [address] [place], [place] [phone] Sick 04/23/2014 Patient Education: Patient Medication Summary Completed 04/23/2014 Care Plan: Referral Order SNOMED-CT : [id number] Ordered 04/23/2014 Appointment: Nurse Visit 04/15/2014 Patient Education: Patient Medication Summary Completed 04/15/2014 Appointment: Elina Alvarado WPtel: [address] [place], [place] [phone] [place] Injection 02/11/2014 Patient Education: Patient Medication [...] treatment. 12/05/2013 Appointment: Elina Alvarado WPtel: [phone] [place] [phone] Follow up 12/05/2013 Patient Education: Patient Medication [...] above medications. 11/05/2013 Appointment: Elina Alvarado WPtel: [phone] [facility] Follow up 11/05/2013 Patient Education: Patient [...] of control. 10/15/2013 Appointment: Elina Alvarado WPtel: [phone] [facility] [facility] 10/15/2013 Patient Education: Patient [...] care surrogate. 09/30/2013 Appointment: Elina Alvarado WPtel: [facility] [facility] - Initial Preventive Physical Exam 09/30/2013 Patient Education: Patient Medication Summary Completed 09/30/2013 Appointment: Elina Alvarado WPtel: [facility] [facility] - Initial Preventive Physical Exam 09/11/2013 Visit [...] prn use. 03/13/2013 Appointment: Elina Alvarado WPtel: [facility] Follow up 03/13/2013 Patient Education: Patient [...] medications. 10/04/2012 Appointment: Elina Alvarado WPtel: [phone] [facility] Follow up 10/04/2012 Patient Education: Patient Medication [...] anxiety attacks. 08/22/2011 Appointment: [facility]ado [facility]Ptel[phone] Other 08/22/2011 Patient Education: Patient Medication Summary [...] ULTRASOUND 06/17/2011 Appointment: Elina Alvarado WPtel: [phone] [facility]6[address] Other 06/17/2011 Patient Education: Patient Medication Summary Completed 06/17/2011 Referral: Raimundo Brandt WPtel: Referral Appointment Requested Referral: Greg Murcia HPtel:[phone] Referral Initiated Referral: Ramiro [address] Referral Initiated Referral: Dr. Phelps WPtel: [...] and to maintain independece in the home. Nufztsonbm-nbqecoksxutz-xcndaa to wellbutrin Pneumonia 13 administered today in [...] and to maintain independece in the home. Erqfghsczv-hdaapzwsktre-dxndio to wellbutrin Pneumonia 13 administered today in [...] if painful urination persists Flagyl -sent to [facility] if symptoms do not resolve completely [...]
--- OUTSIDE RECORDS SUMMARY | 2018-12-27 09:30 | XMS REPORT | CCD ---
Author Author [facility] Organization [facility] Address [address] [place] [address] Phone Care Team Providers Care Automotive Engineering Teacher Name Role Phone PP Unavailable CCM Unavailable Summary Purpose Interface Exchange Insurance Providers Payer name Policy type / Coverage type Covered alliance party ID Effective Begin Date Effective End Date WPS Medicare Part B [id number] 2018 Unknown [facility] [id number] 2018 Unknown Family history Sister Diagnosis Age At [...] Description Effective Dates Tobacco history SNOMED CT: 0269462 Former smoker quit 2 years ago, social smoker, 1 pack per month 200709/30/2013 Employment 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 Marital status Unknown 06/17/[address]: 228450 Currently drinks alcohol 2 beers/week 06/17/2011 Has [...] Condition Status Onset Date Resolved Date Acute bronchitis, unspecified ICD-9: 466.0 ICD-10: J20.9 [...] 9: 388.31 ICD-10: H93.13 Active 02/21/2018 Unknown Encounter for general adult medical examination with abnormal findings ICD-9: V70.0 ICD-10: Z00.01 Active 11/17/2016 Unknown Acute laryngopharyngitis ICD-9: 465.0 ICD-10: J06.0 Active 08/29/2017 Unknown Generalized anxiety disorder ICD-9: 300.02 ICD-10: F41.1 Active 12/05/2013 Unknown Major depressive disorder, recurrent, moderate ICD-9: 296.32 ICD-10: F33.1 Active 06/20/2016 Unknown 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.0 Active 06/13/2017 Unknown Acute vaginitis ICD-9: 623.5 ICD-10: N76.0 Active 02/16/2017 Unknown Pelvic and perineal pain ICD-9: [id number] ICD-10: R10.2 Active 02/16/2017 Unknown Hypothyroidism, unspecified [...] Condition Codes Effective Dates Condition Status Acute bronchitis, unspecified ICD-9: 466.0 ICD-10: J20.9 [...] ICD- 9: 388.31 ICD-10: H93.13 02/21/2018 Active Encounter for general adult medical examination with abnormal findings ICD-9: V70.0 ICD-10: Z00.01 11/17/2016 Active Acute laryngopharyngitis ICD-9: 465.0 ICD-10: J06.0 08/29/2017 Active Generalized anxiety disorder ICD-9: 300.02 ICD-10: F41.1 12/05/2013 Active Major depressive disorder, recurrent, moderate ICD-9: 296.32 ICD-10: F33.1 06/20/2016 Active 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.0 06/13/2017 Active Acute vaginitis ICD-9: 623.5 ICD-10: N76.0 02/16/2017 Active Pelvic and perineal pain ICD-9: [id number] ICD-10: R10.2 02/16/2017 Active Hypothyroidism, unspecified ICD-9: [...] Instructions Zithromax Z-Que 250 mg tablet RxNorm: 505487 1 Tablet(s) PO UD 10/08/2018 10/12/2018 Inactive Kenalog 40 mg/mL suspension for injection RxNorm: 9237081 Milliliter(s) Inj 10/08/2018 10/08/2018 Inactive Xanax 0.5 mg tablet RxNorm: 362146 1 Tablet(s) PO QID as needed anxiety 09/24/2018 11/21/2018 Inactive Kenalog 40 mg/mL suspension for injection RxNorm: 2289650 1 Milliliter(s) Inj 09/11/2018 09/11/2018 Inactive Augmentin 875 mg-125 mg tablet RxNorm: 494891 1 Tablet(s) PO BID 09/11/2018 09/17/2018 Inactive naproxen 500 mg tablet RxNorm: 173825 1 Tablet(s) PO BID 07/12/2018 07/16/2018 Inactive Synthroid 112 mcg tablet RxNorm: 014973 TAKE ONE TABLET BY MOUTH DAILY 07/02/2018 12/28/2018 Active Lipitor 10 mg tablet RxNorm: 114586 TAKE ONE TABLET BY MOUTH EVERY DAY 06/06/2018 05/31/2019 Active Lexapro 20 mg tablet RxNorm: 472187 TAKE ONE TABLET BY MOUTH DAILY 05/08/2018 12/03/2018 Active Synthroid 100 mcg tablet RxNorm: 666576 TAKE ONE TABLET BY MOUTH EVERY OTHER DAY 04/10/2018 10/06/2018 Inactive Synthroid 100 mcg tablet RxNorm: 906062 1 Tablet(s) PO every other day 12/11/2017 04/09/2018 Inactive QOD -alternate with 112mcg DISPENSE BRAND NAME Synthroid 112 mcg tablet RxNorm: 289408 1 Tablet(s) every other day 11/28/2017 03/27/2018 Inactive QOD alternate with 100mcg Synthroid 100 mcg tablet RxNorm: 772675 1 Tablet(s) PO every other day 11/28/2017 12/10/2017 Inactive QOD -alternate with 112mcg DISPENSE BRAND NAME Synthroid 100 mcg tablet RxNorm: 996697 1 Tablet(s) PO every other day 11/28/2017 11/27/2017 Inactive QOD -alternate with 112mcg Xanax 0.5 mg tablet RxNorm: 038059 1 Tablet(s) PO QID as needed anxiety 11/14/2017 01/11/2018 Inactive Lexapro 20 mg tablet RxNorm: 468282 TAKE ONE TABLET BY MOUTH DAILY 11/13/2017 05/07/2018 Inactive Xanax 0.5 mg tablet RxNorm: 485286 1 Tablet(s) PO QID as needed anxiety 09/11/2017 11/08/2017 Inactive Tamiflu 75 mg capsule RxNorm: 447754 1 Capsule(s) PO BID 08/29/2017 09/02/2017 Inactive Synthroid 112 mcg tablet RxNorm: 732485 1 Tablet(s) daily 08/14/2017 11/27/2017 Inactive fyi - medication changed, refill x 6 - #30 pills Synthroid 112 mcg tablet RxNorm: 225940 1 Tablet(s) daily 06/13/2017 08/13/2017 Inactive fyi - medication changed, refill x 6 - #30 pills Lexapro 20 mg tablet RxNorm: 670266 TAKE ONE TABLET BY MOUTH DAILY 06/09/2017 11/05/2017 Inactive Synthroid 112 mcg tablet RxNorm: 107978 TAKE 1 TABLET BY MOUTH DAILY EXCEPT TAKE 1/2 TABLET ON MONDAY, MONDAY, AND Monday05/22/2017 06/12/2017 Inactive Lipitor 10 mg tablet RxNorm: 877076 TAKE ONE TABLET BY MOUTH EVERY DAY 03/08/2017 05/31/2018 Inactive Flagyl 500 mg tablet RxNorm: 354261 1 Tablet(s) PO TID 02/16/2017 02/22/2017 Inactive Xanax 0.5 mg tablet RxNorm: 642970 1 Tablet(s) PO QID as needed anxiety 12/23/2016 03/21/2017 Inactive Synthroid 112 mcg tablet RxNorm: 308624 TAKE 1 TABLET BY MOUTH DAILY EXCEPT FOR TAKE 1/2 TABLET ON MONDAY, MONDAY, AND Monday12/23/2016 04/13/2017 Inactive Lexapro 20 mg tablet RxNorm: 766768 TAKE ONE TABLET BY MOUTH DAILY 11/29/2016 05/27/2017 Inactive Zithromax Z-Que 250 mg tablet RxNorm: 775404 1 Tablet(s) PO UD 09/05/2016 09/09/2016 Inactive zpack Kenalog 40 mg/mL suspension for injection RxNorm: 5172912 1 Milliliter(s) Inj 09/05/2016 09/05/2016 Inactive Lipitor 10 mg tablet RxNorm: 438867 TAKE ONE TABLET BY MOUTH EVERY DAY 08/30/2016 02/25/2017 Inactive Ativan 1 mg tablet RxNorm: 670317 1 Tablet(s) PO Q6 PRN as needed TAKE ONE TABLET BY MOUTH THREE TIMES A DAY OR EVERY 6 HOURS NEEDED FOR ANXIETY 08/30/2016 12/22/2016 Inactive Synthroid 112 mcg tablet RxNorm: 532196 1 Tablet(s) PO daily except one-half tab on Mon/Mon/Sat 08/23/2016 12/12/2016 Inactive will refill when needed Lexapro 20 mg tablet RxNorm: 015182 TAKE ONE TABLET BY MOUTH DAILY 08/02/2016 11/28/2016 Inactive Synthroid 112 mcg tablet RxNorm: 422961 1 Tablet(s) PO daily except 1/2 tab wed and sat 05/25/2016 08/22/2016 Inactive will refill when needed Xanax 0.5 mg tablet RxNorm: 131672 1 Tablet(s) PO QID as needed anxiety 05/10/2016 08/29/2016 Inactive Lexapro 20 mg tablet RxNorm: 813179 1 Tablet(s) PO daily 05/03/2016 07/31/2016 Inactive 1/2 tab x 1 week then increase to a full pill daily buspirone 5 mg tablet RxNorm: 825868 TAKE ONE-HALF TABLET BY MOUTH TWICE A DAY 03/15/2016 05/02/2016 Inactive Synthroid 112 mcg tablet RxNorm: 136939 1 Tablet(s) PO daily 02/25/2016 05/24/2016 Inactive Ativan 1 mg tablet RxNorm: 863817 Tablet(s) TAKE ONE TABLET BY MOUTH THREE TIMES A DAY OR EVERY 6 HOURS NEEDED FOR ANXIETY 02/04/2016 05/08/2016 Inactive Synthroid 125 mcg tablet RxNorm: 699097 TAKE ONE TABLET BY MOUTH TWICE WEEKLY 01/11/2016 02/24/2016 Inactive Synthroid 112 mcg tablet RxNorm: 421567 TAKE ONE TABLET BY MOUTH FIVE DAYS A WEEK 01/11/2016 02/24/2016 Inactive Wellbutrin 75 mg tablet RxNorm: 557436 TAKE ONE TABLET BY MOUTH TWICE A DAY 01/11/2016 05/02/2016 Inactive Ativan 1 mg tablet RxNorm: 715594 TAKE ONE TABLET BY MOUTH THREE TIMES A DAY OR EVERY 6 HOURS NEEDED 12/03/2015 12/27/2015 Inactive Lipitor 10 mg tablet RxNorm: 193354 TAKE ONE TABLET BY MOUTH EVERY DAY 12/03/2015 08/28/2016 Inactive Ativan 1 mg tablet RxNorm: 411414 Tablet(s) TAKE ONE TABLET BY MOUTH THREE TIMES A DAY AND TAKE ONE TABLET BY MOUTH EVERY 6 HOURS NEEDED FOR ANXIETY 12/03/2015 12/02/2015 Inactive (Response to an electronic controlled substance refill request - RxReferenceNumber: [id number]) Wellbutrin 75 mg tablet RxNorm: 588251 1 Tablet(s) PO BID 11/13/2015 01/10/2016 Inactive Ativan 1 mg tablet RxNorm: 482253 Tablet(s) TAKE ONE TABLET BY MOUTH THREE TIMES A DAY AND TAKE ONE TABLET BY MOUTH EVERY 6 HOURS NEEDED FOR ANXIETY 09/23/2015 10/30/2015 Inactive (Response to an electronic controlled substance refill request - RxReferenceNumber: [id number]) buspirone 5 mg tablet RxNorm: 577726 TAKE ONE-HALF TABLET BY MOUTH TWICE A DAY 08/18/2015 03/01/2016 Inactive ceftriaxone 500 mg solution for injection RxNorm: 0384488 Inj 07/23/2015 07/23/2015 Inactive Zithromax Z-Que 250 mg tablet RxNorm: 564540 1 Tablet(s) PO UD 07/23/2015 07/27/2015 Inactive ZPACK buspirone 5 mg tablet RxNorm: 921645 1 Tablet(s) PO daily 07/06/2015 10/03/2015 Inactive buspirone 5 mg tablet RxNorm: 204517 1/2 Tablet(s) PO BID 05/26/2015 07/05/2015 Inactive Lipitor 10 mg tablet RxNorm: 528831 TAKE ONE TABLET BY MOUTH EVERY DAY 04/23/2015 10/19/2015 Inactive Ativan 1 mg tablet RxNorm: 251345 Tablet(s) TAKE ONE TABLET BY MOUTH THREE TIMES A DAY AND TAKE ONE TABLET BY MOUTH EVERY 6 HOURS NEEDED FOR ANXIETY 02/23/2015 04/01/2015 Inactive (Response to an electronic controlled substance refill request - RxReferenceNumber: [id number]) Synthroid 125 mcg tablet RxNorm: 403947 1 Tablet(s) PO UD twice weekly 12/10/2014 06/07/2015 Inactive Synthroid 112 mcg tablet RxNorm: 938043 1 Tablet(s) PO UD TAKE ONE TABLET BY MOUTH 5 days a week 12/10/2014 12/04/2015 Inactive Lexapro 20 mg tablet RxNorm: 531220 1 Tablet(s) PO daily 11/26/2014 11/12/2015 Inactive Lipitor 10 mg tablet RxNorm: 238389 TAKE ONE TABLET BY MOUTH EVERY DAY 10/21/2014 04/18/2015 Inactive amoxicillin 500 mg capsule RxNorm: 117506 1 Capsule(s) PO TID 10/15/2014 10/21/2014 Inactive take probiotic BID x 7 days during abt period amoxicillin 500 mg capsule RxNorm: 162275 1 Capsule(s) PO TID 10/15/2014 10/14/2014 Inactive take probiotic BID x 7 days during abt period Ativan 1 mg tablet RxNorm: 454721 TAKE ONE TABLET BY MOUTH THREE TIMES A DAY AND TAKE ONE TABLET BY MOUTH EVERY 6 HOURS NEEDED FOR ANXIETY 08/21/2014 09/28/2014 Inactive (Response to an electronic controlled substance refill request - RxReferenceNumber: [id number]) Ativan 1 mg tablet RxNorm: 735038 1 Tablet(s) PO tid and Q6 PRN as needed 08/18/2014 08/21/2014 Inactive doxycycline hyclate 100 mg tablet RxNorm: 471663 1 Tablet(s) PO BID 04/23/2014 05/25/2015 Inactive prednisone 10 mg tablets in a dose pack RxNorm: 409512 1 Tablet(s) PO 02/14/2014 05/25/2015 Inactive Kenalog 40 mg/mL suspension for injection RxNorm: 8887487 1 Milliliter(s) Inj 02/11/2014 02/11/2014 Inactive Keflex 500 mg capsule RxNorm: 585837 1 Capsule(s) PO TID 01/21/2014 01/27/2014 Inactive Kenalog 40 mg/mL suspension for injection RxNorm: 7193133 Milliliter(s) Inj 01/21/2014 01/21/2014 Inactive Synthroid 112 mcg tablet RxNorm: 231331 1 Tablet(s) PO daily TAKE ONE TABLET BY MOUTH EVERY DAY 12/05/2013 11/29/2014 Inactive Ativan 1 mg tablet RxNorm: 772194 1 Tablet(s) PO Q6 PRN 11/05/2013 02/02/2014 Inactive Lexapro 20 mg tablet RxNorm: 476991 1 Tablet(s) PO daily 11/05/2013 11/04/2013 Inactive Lexapro 20 mg tablet RxNorm: 947108 1 Tablet(s) PO daily 11/05/2013 10/30/2014 Inactive Lipitor 10 mg tablet RxNorm: 509932 1 Tablet(s) PO QPM TAKE ONE TABLET BY MOUTH EVERY DAY 09/30/2013 10/20/2014 Inactive Lexapro 20 mg tablet RxNorm: 050034 1 Tablet(s) PO daily 09/30/2013 11/04/2013 Inactive Synthroid 125 mcg tablet RxNorm: 455326 1 Tablet(s) PO daily 09/10/2013 12/04/2013 Inactive Synthroid 100 mcg tablet RxNorm: 617720 1 Tablet(s) PO daily TAKE ONE TABLET BY MOUTH EVERY DAY 09/06/2013 09/09/2013 Inactive Lipitor 10 mg tablet RxNorm: 220055 Tablet(s) PO TAKE ONE TABLET BY MOUTH EVERY DAY 08/15/2013 09/29/2013 Inactive Synthroid 100 mcg tablet RxNorm: 251974 1 Tablet(s) PO daily TAKE ONE TABLET BY MOUTH EVERY DAY 04/26/2013 09/05/2013 Inactive Ativan 1 mg tablet RxNorm: 798069 1 Tablet(s) PO Q6 PRN 03/13/2013 No Stop Date Active Synthroid 100 mcg tablet RxNorm: 929449 1 Tablet(s) PO daily TAKE ONE TABLET BY MOUTH EVERY DAY 03/13/2013 04/25/2013 Inactive Lexapro 20 mg tablet RxNorm: 591463 1/2 Tablet(s) PO BID 03/13/2013 09/29/2013 Inactive Synthroid 112 mcg tablet RxNorm: 113929 Tablet(s) PO TAKE ONE TABLET BY MOUTH EVERY DAY 01/08/2013 03/12/2013 Inactive Lexapro 20 mg tablet RxNorm: 301908 Tablet(s) PO TAKE 1/2 TABLET EVERY MORNING AND TAKE ONE TABLET BY MOUTH AT BEDTIME 10/18/2012 03/12/2013 Inactive Lipitor 20 mg tablet RxNorm: 548963 1/2 Tablet(s) PO daily 08/20/2012 02/04/2013 Inactive Lipitor 10 mg tablet RxNorm: 154579 1 Tablet(s) PO daily 05/23/2012 08/19/2012 Inactive Synthroid 112 mcg tablet RxNorm: 617654 1 Tablet(s) PO daily 12/16/2011 01/07/2013 Inactive Synthroid 112 mcg Tab RxNorm: 249353 1 Tablet(s) PO daily 12/16/2011 12/15/2011 Inactive Lipitor 10 mg tablet RxNorm: 661457 1 Tablet(s) PO daily 12/15/2011 05/22/2012 Inactive Synthroid 112 mcg Tab RxNorm: 803647 1 Tablet(s) PO every other day 11/09/2011 12/15/2011 Inactive every other day Synthroid 112 mcg Tab RxNorm: 357859 1 Tablet(s) PO every other day 10/21/2011 11/08/2011 Inactive every other day Synthroid 125 mcg Tab RxNorm: 583925 1 Tablet(s) PO every other day 10/21/2011 12/16/2011 Inactive every other day Lexapro 20 mg tablet RxNorm: 610857 1.5 Tablet(s) PO daily 1/2 pill in AM and 1 pill at bedtime 09/22/2011 04/18/2012 Inactive 1/2 q am 1 q hs diazepam 5 mg Tab RxNorm: 338349 1 Tablet(s) PO daily 1 tab bid prn 09/21/2011 05/17/2012 Inactive Lexapro 20 mg Tab RxNorm: 376531 1.5 Tablet(s) PO daily 1/2 pill in AM and 1 pill at bedtime 08/22/2011 09/21/2011 Inactive diazepam 5 mg Tab RxNorm: 178833 1 Tablet(s) PO daily 1 tab bid prn 06/20/2011 09/20/2011 Inactive diazepam 5 mg Tab RxNorm: 941703 1 Tablet(s) PO daily 1 tab bid prn 06/20/2011 06/19/2011 Inactive diazepam 5 mg Tab RxNorm: 588711 1 Tablet(s) PO daily 1 tab bid prn 06/17/2011 06/19/2011 Inactive Lipitor 10 mg Tab RxNorm: 749747 1 Tablet(s) PO daily 05/31/2011 11/26/2011 Inactive diazepam 5 mg Tab RxNorm: 336937 1 Tablet(s) PO BID 1 tab bid prn 04/21/2011 05/20/2011 Inactive Calcium 600 + D(3) Oral RxNorm: Oral No Start Date Active Menest 0.625 mg Tab RxNorm: 403317 1 Tablet(s) PO daily No Start Date 06/16/2011 Inactive Synthroid 125 mcg tablet RxNorm: 271127 Tablet(s) PO No Start Date 09/09/2013 Inactive Ativan 1 mg tablet RxNorm: 360964 1 Tablet(s) PO Q6 PRN No Start Date 08/21/2011 Inactive aspirin 81 mg Tab, Delayed Release RxNorm: 8032517 1 Tablet(s) PO daily No Start Date 09/29/2013 Inactive Lexapro 10 mg Tab RxNorm: 400803 1 Tablet(s) PO daily No Start Date 08/22/2011 Inactive prednisone 10 mg tablets in a dose pack RxNorm: 967626 1 Tablet(s) PO No Start Date 02/13/2014 Inactive Synthroid 112 mcg Tab RxNorm: 962885 Tablet(s) PO tues/thurs/sat/sun No Start Date 10/20/2011 Inactive lorazepam 1 mg Tab RxNorm: 805227 Tablet(s) PO Q6 PRN No Start Date 11/04/2013 Inactive Lipitor 20 mg tablet RxNorm: 976669 1/2 Tablet(s) PO daily No Start Date 08/20/2012 Inactive Vitamin D2 oral RxNorm: oral No Start Date 09/29/2013 Inactive Synthroid 125 mcg Tab RxNorm: 356653 1 Tablet(s) PO No Start Date 10/20/2011 Inactive synthroid 112 mcg tue thur sat sun Medication Administered Medication Codes Instructions Start Date Status Kenalog 40 mg/mL suspension for injection RxNorm: 7873733 Milliliter 10/08/2018 No longer Active Kenalog 40 mg/mL suspension for injection RxNorm: 4154686 1Milliliter 09/11/2018 No longer Active Kenalog 40 mg/mL suspension for injection RxNorm: 3824954 1Milliliter 09/05/2016 No longer Active ceftriaxone 500 mg solution for injection RxNorm: 3716003 07/23/2015 No longer Active Kenalog 40 mg/mL suspension for injection RxNorm: 6254813 1Milliliter 02/11/2014 No longer Active Kenalog 40 mg/mL suspension for injection RxNorm: 1210842 Milliliter 01/21/2014 No longer Active Immunizations Vaccine Codes Date Status Influenza CVX: 141 04/24/2018 completed Influenza CVX: 141 06/07/2017 completed Pneumococcal (Adult) CVX: 133 11/13/2015 completed Influenza CVX: 141 04/15/2014 completed Pneumococcal (Adult) CVX: 33 04/15/2014 completed PPD Unknown 10/10/2013 completed Influenza CVX: 141 09/30/2013 completed Assessments Condition Codes Effective Dates Cough ICD-10: R05 ICD-9: 786.2 10/08/2018 Acute bronchitis, unspecified ICD-10: J20.9 ICD-9: 466.0 10/08/2018 Acute recurrent maxillary sinusitis ICD-10: J01.01 ICD-9: 461.0 09/11/2018 Pain in right hand ICD-10: M79.641 ICD-9: 729.5 07/12/2018 Dysuria ICD-10: R30.0 ICD-9: 788.1 05/07/2018 Encounter for immunization ICD-10: Z23 ICD-9: V04.81 04/24/2018 Other allergic rhinitis ICD-10: J30.89 ICD-9: 477.8 02/21/2018 Tinnitus, bilateral ICD-10: H93.13 ICD-9: 388.31 02/21/2018 Encounter for general adult medical examination with abnormal findings ICD-10: Z00.01 ICD-9: V70.0 11/28/2017 Acute laryngopharyngitis ICD-10: J06.0 ICD-9: 465.0 08/29/2017 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 ICD-9: 244.0 06/13/2017 Generalized anxiety disorder ICD-10: F41.1 ICD-9: 300.02 06/13/2017 Major depressive disorder, recurrent, moderate ICD-10: F33.1 ICD-9: 296.32 06/13/2017 Pelvic and perineal pain ICD-10: R10.2 ICD-9: [id number] 02/16/2017 Acute vaginitis ICD-10: N76.0 ICD-9: 623.5 [...] Visit Reason For Visit Effective Dates Notes cough 10/08/2018 cough 09/11/2018 finger and hand [...] Observation Code Item Item Code Result Date Cbc With Differential Ord2 WBC 6.88 K/ul [...] 29.6 pg 11/26/2018 Cbc With Differential Ord2 [place]% 7.7 % 11/26/2018 Cbc With Differential Ord2 [...] 1.41 K/ul 11/26/2018 Cbc With Differential Ord2 [place] ABS# 0.5 K/ul 11/26/2018 Cbc With Differential Ord2 Eos ABS# 0.2 K/ul 11/26/2018 Cbc With Differential Ord2 Baso ABS# 0.1 K/ul 11/26/2018 T4 Ord4 T4 11.1 ug/dL 03/12/2018 [...] 29.7 pg 11/23/2017 Cbc With Differential Ord2 [place]% 9.0 % 11/23/2017 Cbc With Differential Ord2 [...] 1.77 K/ul 11/23/2017 Cbc With Differential Ord2 [place] ABS# 0.6 K/ul 11/23/2017 Cbc With Differential Ord2 Eos ABS# 0.2 K/ul 11/23/2017 Cbc With Differential Ord2 Baso ABS# 0.0 K/ul 11/23/2017 Tsh Ord6 TSH (3rd IS) 0.17 uIU/mL 11/23/2017 Free T4 Qwj024 FREE T4 1.10 ng/dL 11/23/2017 Comp Metabolic Lca970 NA 142 mEq/L 11/23/2017 Comp Metabolic Jkz258 K 4.4 mEq/L 11/23/2017 Comp Metabolic Dtn728 CL 109 mEq/L 11/23/2017 Comp Metabolic Bqo868 CO2 28.0 mEq/L 11/23/2017 Comp Metabolic Kjk676 ANION GAP 9 11/23/2017 Comp Metabolic Lnc496 GLUCOSE 106 mg/dL 11/23/2017 Comp Metabolic Mvb746 Creat 0.9 mg/dL 11/23/2017 Comp Metabolic Btc327 eGFR 68 ml/min/1.73m2 11/23/2017 Comp Metabolic Grk149 BUN 17 mg/dL 11/23/2017 Comp Metabolic Mjy257 B/C Ratio 19.3 Ratio 11/23/2017 Comp Metabolic Abq544 CALCIUM 9.0 mg/dL 11/23/2017 Comp Metabolic Iqm555 ALK PHOS 65 U/L 11/23/2017 Comp Metabolic Mof472 AST(SGOT) 18 U/L 11/23/2017 Comp Metabolic Zzz887 ALT(SGPT) 16 U/L 11/23/2017 Comp Metabolic Yyr156 BILI T 0.5 mg/dL 11/23/2017 Comp Metabolic Qex659 ALBUMIN 4.2 g/dL 11/23/2017 Comp Metabolic Cal605 TPRO 6.5 g/dL 11/23/2017 Comp Metabolic Bzx781 GLOB 2.3 g/dL 11/23/2017 Comp Metabolic Ztt549 A/G Ratio 1.8 Ratio 11/23/2017 Comp Metabolic Mua377 Osmo 285 mOsmo 11/23/2017 Lipid Ord30 CHOL [...] hTSH II 4.83 uIU/mL 06/07/2017 Comp Metabolic Lte440 NA 141 mEq/L 06/07/2017 Comp Metabolic Kyl609 K 4.3 mEq/L 06/07/2017 Comp Metabolic Pkr653 CL 106 mEq/L 06/07/2017 Comp Metabolic Hcb302 CO2 26.0 mEq/L 06/07/2017 Comp Metabolic Skf907 ANION GAP 13 06/07/2017 Comp Metabolic Lcg896 GLUCOSE 93 mg/dL 06/07/2017 Comp Metabolic Sic044 Creat 0.9 mg/dL 06/07/2017 Comp Metabolic Uto981 eGFR 65 ml/min/1.73m2 06/07/2017 Comp Metabolic Drz629 BUN 10 mg/dL 06/07/2017 Comp Metabolic Aju570 B/C Ratio 11.0 Ratio 06/07/2017 Comp Metabolic Nau972 CALCIUM 8.9 mg/dL 06/07/2017 Comp Metabolic Pbw351 ALK PHOS 69 U/L 06/07/2017 Comp Metabolic Eln477 AST(SGOT) 18 U/L 06/07/2017 Comp Metabolic Pnc373 ALT(SGPT) 15 U/L 06/07/2017 Comp Metabolic Wbg698 BILI T 0.5 mg/dL 06/07/2017 Comp Metabolic Gjx409 ALBUMIN 4.1 g/dL 06/07/2017 Comp Metabolic Axy918 TPRO 6.5 g/dL 06/07/2017 Comp Metabolic Zwk689 GLOB 2.4 g/dL 06/07/2017 Comp Metabolic Eep120 A/G Ratio 1.7 Ratio 06/07/2017 Comp Metabolic Dca385 Osmo 280 mOsmo 06/07/2017 Cbc With Differential [...] 30.7 pg 06/07/2017 Cbc With Differential Ord2 [place]% 9.1 % 06/07/2017 Cbc With Differential Ord2 [...] 1.62 K/ul 06/07/2017 Cbc With Differential Ord2 [place] ABS# 0.5 K/ul 06/07/2017 Cbc With Differential Ord2 Eos ABS# 0.2 K/ul 06/07/2017 Cbc With Differential Ord2 Baso ABS# 0.0 K/ul 06/07/2017 Free T4 Uqj362 FREE T4 0.92 ng/dL 06/07/2017 Tsh Ord6 hTSH II 1.07 uIU/mL 11/17/2016 Free T4 Rll872 FREE T4 1.02 ng/dL 11/17/2016 Lipid Ord30 CHOL 195 mg/dL 10/13/2016 Lipid Ord30 HDL 68.0 mg/dl 10/13/2016 Lipid Ord30 TRIG 69 mg/dL 10/13/2016 Lipid Ord30 LDL 113 mg/dL 10/13/2016 Lipid Ord30 C/HDL 2.9 Ratio 10/13/2016 Comp Metabolic Nzr340 NA 138 mEq/L 10/13/2016 Comp Metabolic Ooi597 K 4.4 mEq/L 10/13/2016 Comp Metabolic Bxo145 CL 102 mEq/L 10/13/2016 Comp Metabolic Xdj276 CO2 29.0 mEq/L 10/13/2016 Comp Metabolic Wnx978 ANION GAP 11 10/13/2016 Comp Metabolic Xar780 GLUCOSE 85 mg/dL 10/13/2016 Comp Metabolic Uxf699 Creat 1.0 mg/dL 10/13/2016 Comp Metabolic Xhc141 eGFR 59 ml/min/1.73m2 10/13/2016 Comp Metabolic Xlp443 BUN 21 mg/dL 10/13/2016 Comp Metabolic Noc277 B/C Ratio 21.2 Ratio 10/13/2016 Comp Metabolic Cbv085 CALCIUM 9.7 mg/dL 10/13/2016 Comp Metabolic Gzt456 ALK PHOS 70 U/L 10/13/2016 Comp Metabolic Lcz415 AST(SGOT) 17 U/L 10/13/2016 Comp Metabolic Wvp224 ALT(SGPT) 14 U/L 10/13/2016 Comp Metabolic Abn387 BILI T 0.9 mg/dL 10/13/2016 Comp Metabolic Hmu131 ALBUMIN 4.4 g/dL 10/13/2016 Comp Metabolic Faj107 TPRO 7.1 g/dL 10/13/2016 Comp Metabolic Nwe605 GLOB 2.7 g/dL 10/13/2016 Comp Metabolic Lgm393 A/G Ratio 1.6 Ratio 10/13/2016 Comp Metabolic Lyh972 Osmo 278 mOsmo 10/13/2016 Cbc With Differential [...] 29.7 pg 10/13/2016 Cbc With Differential Ord2 [place]% 7.7 % 10/13/2016 Cbc With Differential Ord2 [...] 1.43 K/ul 10/13/2016 Cbc With Differential Ord2 [place] ABS# 0.5 K/ul 10/13/2016 Cbc With Differential Ord2 Eos ABS# 0.1 K/ul 10/13/2016 Cbc With Differential Ord2 Baso ABS# 0.0 K/ul 10/13/2016 Free T4 Tnv866 FREE T4 1.31 ng/dL 08/17/2016 Tsh Ord6 hTSH II 0.64 uIU/mL 08/17/2016 Free T4 Gxt000 FREE T4 1.49 ng/dL 05/10/2016 Comp Metabolic Fye265 NA 139 mEq/L 05/10/2016 Comp Metabolic Gwt983 K 4.5 mEq/L 05/10/2016 Comp Metabolic Jzu089 CL 104 mEq/L 05/10/2016 Comp Metabolic Rgp788 CO2 24.0 mEq/L 05/10/2016 Comp Metabolic Tow893 ANION GAP 16 05/10/2016 Comp Metabolic Uoc571 GLUCOSE 87 mg/dL 05/10/2016 Comp Metabolic Wdr423 Creat 0.9 mg/dL 05/10/2016 Comp Metabolic Nem835 eGFR 71 ml/min/1.73m2 05/10/2016 Comp Metabolic Xfk388 BUN 12 mg/dL 05/10/2016 Comp Metabolic Foa338 B/C Ratio 14.1 Ratio 05/10/2016 Comp Metabolic Yoy201 CALCIUM 9.6 mg/dL 05/10/2016 Comp Metabolic Jwd102 ALK PHOS 89 U/L 05/10/2016 Comp Metabolic Bjx181 AST(SGOT) 17 U/L 05/10/2016 Comp Metabolic Lmt531 ALT(SGPT) 17 U/L 05/10/2016 Comp Metabolic Bkl435 BILI T 0.9 mg/dL 05/10/2016 Comp Metabolic Bid621 ALBUMIN 4.2 g/dL 05/10/2016 Comp Metabolic Xqi275 TPRO 6.7 g/dL 05/10/2016 Comp Metabolic Eyg333 GLOB 2.5 g/dL 05/10/2016 Comp Metabolic Wbj397 A/G Ratio 1.7 Ratio 05/10/2016 Comp Metabolic Eqa884 Osmo 277 mOsmo 05/10/2016 Cbc With Differential [...] 29.1 pg 05/10/2016 Cbc With Differential Ord2 [place]% 8.3 % 05/10/2016 Cbc With Differential Ord2 [...] 1.57 K/ul 05/10/2016 Cbc With Differential Ord2 [place] ABS# 0.6 K/ul 05/10/2016 Cbc With Differential Ord2 Eos ABS# 0.2 K/ul 05/10/2016 Cbc With Differential Ord2 Baso ABS# 0.0 K/ul 05/10/2016 Tsh Ord6 hTSH II 0.03 uIU/mL 05/10/2016 Free T4 Lrd154 FREE T4 1.67 ng/dL 02/18/2016 Tsh Ord6 hTSH II 0.06 uIU/mL 02/18/2016 Comp Metabolic Xsi925 NA 138 mEq/L 02/18/2016 Comp Metabolic Qmh685 K 4.5 mEq/L 02/18/2016 Comp Metabolic Ner773 CL 104 mEq/L 02/18/2016 Comp Metabolic Scx147 CO2 26.0 mEq/L 02/18/2016 Comp Metabolic Dtx777 ANION GAP 13 02/18/2016 Comp Metabolic Txy087 GLUCOSE 88 mg/dL 02/18/2016 Comp Metabolic Mbu869 Creat 0.9 mg/dL 02/18/2016 Comp Metabolic Nlx279 eGFR 69 ml/min/1.73m2 02/18/2016 Comp Metabolic Mba663 BUN 14 mg/dL 02/18/2016 Comp Metabolic Ccr962 B/C Ratio 16.1 Ratio 02/18/2016 Comp Metabolic Rzn875 CALCIUM 9.4 mg/dL 02/18/2016 Comp Metabolic Wca553 ALK PHOS 95 U/L 02/18/2016 Comp Metabolic Mbx516 AST(SGOT) 19 U/L 02/18/2016 Comp Metabolic Iqx089 ALT(SGPT) 18 U/L 02/18/2016 Comp Metabolic Fdn431 BILI T 0.7 mg/dL 02/18/2016 Comp Metabolic Erl217 ALBUMIN 4.4 g/dL 02/18/2016 Comp Metabolic Iqb690 TPRO 6.9 g/dL 02/18/2016 Comp Metabolic Cdr577 GLOB 2.5 g/dL 02/18/2016 Comp Metabolic Csz886 A/G Ratio 1.7 Ratio 02/18/2016 Comp Metabolic Jhz020 Osmo 276 mOsmo 02/18/2016 Lipid Ord30 CHOL [...] 28.9 pg 02/18/2016 Cbc With Differential Ord2 [place]% 10.5 % 02/18/2016 Cbc With Differential Ord2 [...] 1.08 K/ul 02/18/2016 Cbc With Differential Ord2 [place] ABS# 0.6 K/ul 02/18/2016 Cbc With Differential Ord2 Eos ABS# 0.0 K/ul 02/18/2016 Cbc With Differential Ord2 Baso ABS# 0.0 K/ul 02/18/2016 Comp Metabolic Gyv187 NA 136 mEq/L 06/08/2015 Comp Metabolic Uju031 K 3.9 mEq/L 06/08/2015 Comp Metabolic Dsy536 CL 103 mEq/L 06/08/2015 Comp Metabolic Azi021 CO2 25.0 mEq/L 06/08/2015 Comp Metabolic Ayt003 ANION GAP 12 06/08/2015 Comp Metabolic Aca777 GLUCOSE 91 mg/dL 06/08/2015 Comp Metabolic Axl696 Creat 0.9 mg/dL 06/08/2015 Comp Metabolic Bgk306 eGFR 68 ml/min/1.73m2 06/08/2015 Comp Metabolic Dhf205 BUN 10 mg/dL 06/08/2015 Comp Metabolic Ups779 B/C Ratio 11.4 Ratio 06/08/2015 Comp Metabolic Iry279 CALCIUM 9.4 mg/dL 06/08/2015 Comp Metabolic Pzk354 ALK PHOS 88 U/L 06/08/2015 Comp Metabolic Cbw911 AST(SGOT) 20 U/L 06/08/2015 Comp Metabolic Nct041 ALT(SGPT) 18 U/L 06/08/2015 Comp Metabolic Iuh499 BILI T 0.8 mg/dL 06/08/2015 Comp Metabolic Taa215 ALBUMIN 4.4 g/dL 06/08/2015 Comp Metabolic Ufo451 TPRO 7.0 g/dL 06/08/2015 Comp Metabolic Lkl457 GLOB 2.6 g/dL 06/08/2015 Comp Metabolic Xuh554 A/G Ratio 1.7 Ratio 06/08/2015 Comp Metabolic Wjp446 Osmo 271 mOsmo 06/08/2015 Tsh Ord6 hTSH [...] Ord2 RDW 14.4 % 06/08/2015 LYME EIA [id number] LYME EIA 0.24 04/25/2014 TULAREM AB [id number] TULAREM AB <1:20 04/24/2014 RMSF IFA [id number] IGG RMSF <1:16 04/24/2014 RMSF IFA 0364174 IGM RMSF <1:10 04/24/2014 E CHAFF AB [id number] IGG E CHFF <1:16 04/24/2014 E CHAFF AB [id number] IGM E CHFF <1:10 04/24/2014 ICT OCCULT [id number] ICT OCCULT NEG 10/11/2013 Review of Systems System Result Effective Dates Constitutional recent illness 10/08/2018 Constitutional No chills [...] Result Effective Dates Notes Full Exam - ENT Constitutional general appearance [...] 1995 Ears/Nose/Throat oral cavity/pharynx/larynx Overall: no masses 05/16/2014 [...] rate 10/15/2013 None Full Exam - General 1995 Cardiovascular extremities Overall: no clubbing 10/15/2013 None Full Exam - General 1994 Cardiovascular auscultation of heart Overall: regular rate 10/15/2013 None Full Exam - General 1994 Cardiovascular auscultation of heart Overall: normal heart sounds 10/15/2013 None Full Exam - General 1995 Abdomen abdominal exam Overall: no tenderness 10/15/2013 None Full Exam - General 1994 Abdomen abdominal exam Overall: normal bowel sounds 10/15/2013 None Full Exam - General 1994 Musculoskeletal head and neck Overall: head atraumatic 10/15/2013 None Full Exam - General 1995 [...] accomodation 06/17/2011 None Procedures Procedure Codes Date TRIAMCINOLONE ACET INJ NOS CPT-4: J3301 10/08/2018 TRIAMCINOLONE ACET INJ NOS CPT-4: J3301 09/11/2018 URINALYSIS NONAUTO W/O SCOPE CPT-4: 12796 05/07/2018 ADMIN INFLUENZA VIRUS VAC CPT-4: G0008 04/24/2018 FLU VACC PRSV FREE INC ANTIG CPT-4: 09348 04/24/2018 PPPS, SUBSEQ VISIT CPT- 4: G0439 11/28/2017 ADMIN INFLUENZA VIRUS VAC CPT-4: G0008 06/07/2017 FLU VACC PRSV FREE INC ANTIG CPT-4: 21274 06/07/2017 PPPS, SUBSEQ VISIT CPT- 4: G0439 11/17/2016 TRIAMCINOLONE ACET INJ NOS CPT-4: J3301 09/05/2016 PPPS, SUBSEQ VISIT CPT- 4: G0439 11/13/2015 PNEUMOCOCCAL VACC 13 STEPHANIE IM Formatting Model/CDA Sections, Assigned to/Lila Colon SNOMED CT: 15334348 CPT-4: 98514Mixifqa 11/13/2015 ADMIN PNEUMOCOCCAL VACCINE SNOMED CT: 72461220 CPT-4: G0009 11/13/2015 ROCEPHIN, PER 250 MG CPT- 4: J0696 07/23/2015 URINALYSIS NONAUTO W/O SCOPE CPT-4: 33595 10/10/2014 ROUTINE VENIPUNCTURE CPT- 4: 62316 04/23/2014 Pneumococcal Polysaccharide Vaccine, 23-Valent, Ad CPT-4: 13498 04/15/2014 ADMIN INFLUENZA VIRUS VAC CPT-4: G0008 04/15/2014 FLU VAC NO PRSV 4 STEPHANIE 3 YRS+ CPT-4: 27051 04/15/2014 ADMIN PNEUMOCOCCAL VACCINE SNOMED CT: 21543574 CPT-4: G0009 04/15/2014 THER/PROPH/DIAG INJ SC/IM CPT-4: 71441 02/11/2014 TRIAMCINOLONE ACET INJ NOS CPT-4: J3301 02/11/2014 TRIAMCINOLONE ACET INJ NOS CPT-4: J3301 01/21/2014 INITIAL PREVENTIVE EXAM CPT-4: G0402 09/30/2013 PRESCRIP TRANSMIT VIA ERX SY CPT-4: G8553 03/13/2013 Vital Signs Date Vital 10/08/2018 Blood Pressure 1: 140/82 Code: 8480-6 Heart Rate 1: 80 bpm Height: 5'5" SpO2: 95% Temperature: 37.0 (C) / 98.6 (F) Weight: 09/11/2018 Blood Pressure 1: 114/76 Code: 8480-6 BMI: 29.3 Code: 81228-3 Heart Rate 1: 80 bpm Height: 5'5" SpO2: 95% Temperature: 36.3 (C) / 97.3 (F) Weight: 176 lbs 07/12/2018 Blood Pressure 1: 126/76 Code: 8480-6 BMI: 29.3 Code: 97795-0 Heart Rate 1: 70 bpm Height: 5'5" SpO2: 96% Weight: 176 lbs 05/07/2018 Blood Pressure 1: 118/72 Code: 8480-6 BMI: 29.5 Code: 40248-1 Heart Rate 1: 71 bpm Height: 5'5" SpO2: 98% Weight: 177 lbs 02/21/2018 Blood Pressure 1: 120/78 Code: 8480-6 BMI: 29.0 Code: 45456-7 Heart Rate 1: 68 bpm Height: 5'5" SpO2: 96% Weight: 174 lbs 11/28/2017 Blood Pressure 1: 122/98 Code: 8480-6 BMI: 31.0 Code: 60158-4 Heart Rate 1: 89 bpm Height: 5'5" SpO2: 98% Waist Measure (cm): 91 cm Weight: 186 lbs 08/29/2017 Blood Pressure 1: 146/80 Code: 8480-6 BMI: 29.5 Code: 24508-2 Heart Rate 1: 68 bpm Height: 5'5" SpO2: 98% Temperature: 36.6 (C) / 97.8 (F) Weight: 177 lbs 06/13/2017 Blood Pressure 1: 138/76 Code: 8480-6 BMI: 29.6 Code: 11563-1 Heart Rate 1: 63 bpm Height: 5'5" SpO2: 95% Weight: 178 lbs 02/16/2017 Blood Pressure 1: 128/80 Code: 8480-6 BMI: 29.9 Code: 01662-9 Heart Rate 1: 77 bpm Height: 5'5" SpO2: 96% Weight: 179 lbs 8 oz 02/06/2017 Blood Pressure 1: 140/80 Code: 8480-6 BMI: 29.8 Code: 79952-6 Heart Rate 1: 72 bpm Height: 5'5" SpO2: 97% Weight: 179 lbs 11/17/2016 Blood Pressure 1: 130/72 Code: 8480-6 BMI: 29.6 Code: 33180-5 Heart Rate 1: 62 bpm Height: 5'5" SpO2: 98% Waist Measure (cm): 91 cm Weight: 178 lbs 10/12/2016 Blood Pressure 1: 128/78 Code: 8480-6 BMI: 28.5 Code: 20558-6 Heart Rate 1: 62 bpm Height: 5'5" SpO2: 97% Weight: 171 lbs 09/05/2016 Blood Pressure 1: 122/70 Code: 8480-6 BMI: 28.0 Code: 85591-7 Heart Rate 1: 65 bpm Height: 5'5" SpO2: 94% Weight: 168 lbs 06/21/2016 Blood Pressure 1: 120/82 Code: 8480-6 BMI: 28.3 Code: 85971-1 Heart Rate 1: 65 bpm Height: 5'5" SpO2: 97% Weight: 170 lbs 05/24/2016 Blood Pressure 1: 136/80 Code: 8480-6 BMI: 28.1 Code: 89848-7 Heart Rate 1: 71 bpm Height: 5'5" SpO2: 96% Weight: 169 lbs 05/10/2016 Blood Pressure 1: 120/82 Code: 8480-6 BMI: 27.6 Code: 92881-0 Heart Rate 1: 86 bpm Height: 5'5" SpO2: 95% Weight: 166 lbs 05/03/2016 Blood Pressure 1: 124/78 Code: 8480-6 BMI: 28.1 Code: 63874-0 Heart Rate 1: 88 bpm Height: 5'5" SpO2: 97% Weight: 169 lbs 11/13/2015 Blood Pressure 1: 130/60 Code: 8480-6 BMI: 30.0 Code: 27967-0 Heart Rate 1: 7 bpm Height: 5'5" Waist Measure (cm): 97 cm Weight: 180 lbs 07/23/2015 Blood Pressure 1: 124/70 Code: 8480-6 BMI: 29.6 Code: 16956-2 Heart Rate 1: 74 bpm Height: 5'5" SpO2: 96% Temperature: 36.7 (C) / 98.1 (F) Weight: 178 lbs 07/06/2015 Blood Pressure 1: 138/78 Code: 8480-6 BMI: 29.6 Code: 77421-3 Heart Rate 1: 84 bpm Height: 5'5" SpO2: 96% Weight: 178 lbs 05/26/2015 Blood Pressure 1: 122/80 Code: 8480-6 BMI: 29.6 Code: 80676-3 Heart Rate 1: 84 bpm Height: 5'5" Weight: 178 lbs 02/16/2015 Blood Pressure 1: 124/82 Code: 8480-6 BMI: 29.0 Code: 21910-3 Heart Rate 1: 68 bpm Height: 5'5" Weight: 174 lbs 12/10/2014 Blood Pressure 1: 112/64 Code: 8480-6 BMI: 28.6 Code: 23294-8 Heart Rate 1: 80 bpm Height: 5'5" Weight: 172 lbs 10/16/2014 Blood Pressure 1: 128/84 Code: 8480-6 Heart Rate 1: 64 bpm Weight: 172 lbs 10/09/2014 Blood Pressure 1: 136/90 Code: 8480-6 BMI: 28.6 Code: 78685-4 Heart Rate 1: 76 bpm Height: 5'5" Weight: 172 lbs 08/26/2014 Blood Pressure 1: 118/72 Code: 8480-6 BMI: 29.0 Code: 49645-9 Heart Rate 1: 76 bpm Height: 5'5" Weight: 174 lbs 05/16/2014 Blood Pressure 1: 110/72 Code: 8480-6 BMI: 29.0 Code: 50655-8 Height: 5'5" Weight: 174 lbs 04/23/2014 Blood Pressure 1: 124/70 Code: 8480-6 BMI: 29.0 Code: 57075-9 Heart Rate 1: 72 bpm Height: 5'5" Weight: 174 lbs 04/15/2014 Temperature: 36.5 (C) / 97.7 (F) 01/21/2014 Blood Pressure 1: 98/62 Code: 8480-6 BMI: 29.0 Code: 41819- 5 Heart Rate 1: 84 bpm Height: 5'5" Temperature: 37.1 (C) / 98.7 (F) Weight: 174 lbs 12/05/2013 Blood Pressure 1: 138/88 Code: 8480-6 BMI: 29.0 Code: 86397-1 Heart Rate 1: 60 bpm Height: 5'5" Weight: 174 lbs 11/05/2013 Blood Pressure 1: 118/80 Code: 8480-6 BMI: 28.8 Code: 69107-3 Heart Rate 1: 76 bpm Height: 5'5" Weight: 173 lbs 10/15/2013 Blood Pressure 1: 120/78 Code: 8480-6 BMI: 29.1 Code: 86726-6 Heart Rate 1: 88 bpm Height: 5'5" Weight: 175 lbs 09/30/2013 Blood Pressure 1: 112/84 Code: 8480-6 BMI: 29.1 Code: 13491-0 Heart Rate 1: 68 bpm Height: 5'5" Weight: 175 lbs 03/13/2013 Blood Pressure 1: 112/84 Code: 8480-6 BMI: 28.6 Code: 83718-1 Heart Rate 1: 64 bpm Height: 5'5" Weight: 173 lbs 10/04/2012 Blood Pressure 1: 120/72 Code: 8480-6 BMI: 28.0 Code: 43601-6 Heart Rate 1: 64 bpm Height: 5'5" Weight: 169 lbs 08/22/2011 Blood Pressure 1: 134/84 Code: 8480-6 BMI: 27.5 Code: 01968-2 Heart Rate 1: 68 bpm Height: 5'5" Respiratory Rate: 16 bpm Weight: 166 lbs 8 oz 06/17/2011 Blood Pressure 1: 120/76 Code: 8480-6 BMI: 27.0 Code: 58491-5 Heart Rate 1: 58 bpm Height: 5'5" Respiratory Rate: 16 bpm Weight: 163 lbs Functional Status No Functional Status data History of Present Illness Symptom Name Status Result Effective Date Notes Location in the throat 10/08/2018 None Quality [...] data Encounters Encounter Performer Location Codes Date (213 EST. PATIENT, LEVEL III Diagnosis: Cough[ICD10: R05] Diagnosis: Acute bronchitis, unspecified[ICD10: J20.9] Suma Alvarado MD, [facility] CPT-4: 93898 10/08/2018 ([id number]) 13203 EST. PATIENT, LEVEL III Diagnosis: Cough[ICD10: R05] Diagnosis: Acute recurrent maxillary sinusitis[ICD10: J01.01] Suma Alvarado MD, [facility] CPT-4: 78334 09/11/2018 36609 EST. PATIENT, LEVEL III Diagnosis: Pain in right hand[ICD10: M79.641] Gina Alvarado MD, [facility] CPT-4: 27318 07/12/2018 ([id number]) 71118 EST. PATIENT, LEVEL II Diagnosis: Dysuria[ICD10: R30.0] Suma Alvarado MD, [facility] CPT-4: 91470 05/07/2018 76028 EST. PATIENT, LEVEL IV Diagnosis: Tinnitus, bilateral[ICD10: H93.13] Diagnosis: Other allergic rhinitis[ICD10: J30.89] Gina Alvarado MD, [facility] CPT- 4: 62618 02/21/2018 35895 EST. PATIENT, LEVEL III Diagnosis: Acute laryngopharyngitis[ICD10: J06.0] Diagnosis: Other allergic rhinitis[ICD10: J30.89] Gina Alvarado MD, [facility] CPT- 4: 74546 08/29/2017 ([id number]) 38448 EST. PATIENT, LEVEL IV Diagnosis: Postprocedural hypothyroidism[ICD10: E89.0] Diagnosis: Major depressive disorder, recurrent, moderate[ICD10: F33.1] Diagnosis: Generalized anxiety disorder[ICD10: F41.1] Elina Alvarado MD, [facility] CPT-4: 69235 06/13/2017 ([id number]) 68326 EST. PATIENT, LEVEL IV Diagnosis: Pelvic and perineal pain[ICD10: R10.2] Diagnosis: Acute vaginitis[ICD10: N76.0] Suma Alvarado MD, [facility] CPT-4: 29849 02/16/2017 ([id number]) 76707 EST. PATIENT, LEVEL III Diagnosis: Postprocedural hypothyroidism[ICD10: E89.0] Diagnosis: Major depressive disorder, recurrent, moderate[ICD10: F33.1] Elina Alvarado MD, [facility] CPT-4: 81126 02/06/2017 ([id number]) 15036 EST. PATIENT, LEVEL III Diagnosis: Generalized anxiety disorder[ICD10: F41.1] Elina Alvarado MD, [facility] CPT-4: 98620 10/12/2016 ([id number]) 50621 EST. PATIENT, LEVEL III Diagnosis: Cough[ICD10: R05] Diagnosis: Acute upper respiratory infection, unspecified[ICD10: J06.9] Suma Alvarado MD, [facility] CPT-4: 33259 09/05/2016 ([id number]) 63935 EST. PATIENT, LEVEL III Diagnosis: Generalized anxiety disorder[ICD10: F41.1] Diagnosis: Major depressive disorder, recurrent, moderate[ICD10: F33.1] Diagnosis: Postprocedural hypothyroidism[ICD10: E89.0] Elina Alvarado MD, [facility] CPT-4: 23110 06/21/2016 ([id number]) 39930 EST. PATIENT, LEVEL III Diagnosis: Major depressive disorder, recurrent, moderate[ICD10: F33.1] Elina Alvarado MD, [facility] CPT-4: 56771 05/24/2016 ([id number]) 60015 EST. PATIENT, LEVEL III Diagnosis: Major depressive disorder, recurrent, moderate[ICD10: F33.1] Elina Alvarado MD, [facility] CPT-4: 20159 05/10/2016 ([id number]) 99646 EST. PATIENT, LEVEL III Diagnosis: Generalized anxiety disorder[ICD10: F41.1] Diagnosis: Major depressive disorder, recurrent, moderate[ICD10: F33.1] Suma Alvarado MD, [facility] CPT-4: 08161 05/03/2016 ([id number]) 16243 EST. PATIENT, LEVEL III Diagnosis: Cough[ICD10: R05] Diagnosis: Acute upper respiratory infection, unspecified[ICD10: J06.9] Suma Alvarado MD, [facility] CPT-4: 01788 07/23/2015 ([id number]) 76187 EST. PATIENT, LEVEL III Diagnosis: Hypothyroidism, unspecified[ICD10: E03.9] Diagnosis: Generalized anxiety disorder[ICD10: F41.1] Diagnosis: Other depressive episodes[ICD10: F32.8] Elina Alvarado MD, [facility] CPT-4: 90076 07/06/2015 ([id number]) 89251 EST. PATIENT, LEVEL IV Diagnosis: Generalized anxiety disorder[ICD10: F41.1] Diagnosis: Major depressive disorder, recurrent, unspecified[ICD10: F33.9] Elina Alvarado MD, [facility] CPT-4: 38651 05/26/2015 ([id number]) 46041 EST. PATIENT, LEVEL II Diagnosis: 2Nd degree burn of multiple fingers of right hand not including thumb[ICD9: 944.23] Suma Alvarado MD, [facility] CPT-4: 50355 02/16/2015 ([id number]) 47962 EST. PATIENT, LEVEL IV Diagnosis: Hammertoe[ICD9: 735.4] Diagnosis: Foot pain[ICD9: 729.5] Diagnosis: HYPOTHYROIDISM[ICD9: 244.9] Elina Alvarado MD, [facility] CPT-4: 04995 12/10/2014 ([id number]) 56732 EST. PATIENT, LEVEL III Diagnosis: Urinary incontinence[ICD9: 788.30] Diagnosis: Pelvic pain in female[ICD9: 625.9] Elina Alvarado MD, [facility] CPT- 4: 43759 10/16/2014 ([id number]) 31287 EST. PATIENT, LEVEL III Diagnosis: Urinary incontinence[ICD9: 788.30] Diagnosis: Pelvic pain in female[ICD9: 625.9] Suma Alvarado MD, [facility] CPT- 4: 28855 10/09/2014 ([id number]) 70743 EST. PATIENT, LEVEL III Diagnosis: HYPOTHYROIDISM[ICD9: 244.9] Elina Alvarado MD, [facility] CPT-4: 82037 08/26/2014 ([id number]) 68194 EST. PATIENT, LEVEL III Diagnosis: Neck pain[ICD9: 723.1] Diagnosis: Muscle tension headache[ICD9: 307.81] Suma Alvarado MD, [facility] CPT-4: 39992 05/16/2014 ([id number]) 08755 EST. PATIENT, LEVEL IV Diagnosis: Arthropod bite[ICD9: 919.4] Diagnosis: Poison diana dermatitis[ICD9: 692.6] Diagnosis: Arthralgia[ICD9: 719.40] Diagnosis: Myalgia[ICD9: 729.1] Elina Alvarado MD, [facility] CPT-4: 18298 04/23/2014 ([id number]) 29335 EST. PATIENT, LEVEL III Diagnosis: ACUTE URI[ICD9: 465.9] Diagnosis: COUGH[ICD9: 786.2] Suma Alvarado MD, [facility] CPT-4: 40779 01/21/2014 ([id number]) 03387 EST. PATIENT, LEVEL III Diagnosis: HYPOTHYROIDISM[ICD9: 244.9] Diagnosis: GENERALIZED ANXIETY DISEASE[ICD9: 300.02] Elina Alvarado MD, [facility] CPT-4: 98716 12/05/2013 ([id number]) 21474 EST. PATIENT, LEVEL III Diagnosis: GENERALIZED ANXIETY DISEASE[ICD9: 300.02] Diagnosis: DEPRESSIVE DISORDER NEC[ICD9: 311] Elina Alvarado MD [facility] CPT- 4: 45906 11/05/2013 ([id number]) 56895 EST. PATIENT, LEVEL III Diagnosis: HYPOTHYROIDISM[ICD9: 244.9] Elina Alvarado MD, [facility] CPT-4: 06199 10/15/2013 ([id number]) Miscellaneous no charge Diagnosis: Colon cancer screening[ICD9: V76.51] Elina Alvarado MD, [facility] CPT- 4: 72820 10/10/2013 ([id number]) 91462 EST. PATIENT, LEVEL IV Diagnosis: HYPOTHYROIDISM[ICD9: 244.9] Diagnosis: DEPRESSIVE DISORDER NEC[ICD9: 311] Diagnosis: GENERALIZED ANXIETY DISEASE[ICD9: 300.02] Diagnosis: HYPERLIPIDEMIA[ICD9: 272.4] Elina Alvarado MD, [facility] CPT-4: 61598 03/13/2013 ([id number]) 45919 EST. PATIENT, LEVEL IV Diagnosis: HYPERLIPIDEMIA[ICD9: 272.4] Diagnosis: HYPOTHYROIDISM[ICD9: 244.9] Diagnosis: GENERALIZED ANXIETY DISEASE[ICD9: 300.02] Diagnosis: DEPRESSIVE DISORDER NEC[ICD9: 311] [facility] CPT- 4: 01090 10/04/2012 ([id number]) 26938 EST. PATIENT, LEVEL III Diagnosis: VICTOR HUGO (generalized anxiety disorder)[ICD9: 300.02] Diagnosis: Chronic depression[ICD9: 311] [facility] CPT-4: 38714 08/22/2011 54081 EST. PATIENT, LEVEL IV Diagnosis: CHEST PAIN NEC[ICD9: 786.59] Diagnosis: HYPERLIPIDEMIA[ICD9: 272.4] Diagnosis: POSTSURGICAL HYPOTHYROIDISM[ICD9: 244.0] Elina Alvarado MD, [facility] CPT-4: 65457 06/17/2011 Plan of Care Planned Activity Notes Codes Status Date Visit Plan: Bronchitis - acute case of bronchitis identified. Pt has been given antibiotics, breathing treatments as appropriate, and pt has been instructed to call if symptoms are not improved, or if symptoms acutely worsen. 10/08/2018 Appointment: Suma Choi WPtel: [address] [place] [address] (30 min) Complex 10/08/2018 Patient Education: Patient Medication Summary Completed 10/08/2018 Visit Plan: Sinusitis - Pt has acute infection - pain in face, maxillary region, Pt informed to use decongestant, RX given to patient, sinus rinses also recommended. Call if symptoms do not show improvement. 09/11/2018 Appointment: Suma Choi WPtel: [address] [place], [place] [phone] (15 min) Moderate 09/11/2018 Patient Education: Patient Medication Summary Completed 09/11/2018 Visit Plan: Right hand pain - ongoing - will send for x-ray - The pt is to use prn antiinflammatories to manage acute pain. The patient is to call the office if the pain is worsening or does not improve. 07/12/2018 Appointment: Gina Kern WPtel: [facility] (15 min) Moderate 07/12/2018 Patient Education: Patient Medication Summary Completed 07/12/2018 Care Plan: X-RAY EXAM OF HAND LOINC : 79864-4 Pending 07/12/2018 Visit Plan: Dysuria- UA negative -symptoms resolved -instructed patient to continue with adequate fluid intake and call if symptoms return. Patient verbalized understanding of plan. 05/07/2018 Appointment: Suma Choi WPtel: [facility]7 [phone] (15 min) Moderate 05/07/2018 Patient Education: Patient Medication Summary Completed 05/07/2018 Appointment: Injection 04/24/2018 Patient Education: Patient Medication Summary Completed 04/24/2018 Referral: Peter Rubio [address] Referral Completed 03/22/2018 Visit Plan: Allergies [...] hearing testing 02/21/2018 Appointment: Gina Kern WPtel: [facility] [place] (15 min) Moderate 02/21/2018 Patient Education: Patient Medication Summary Completed 02/21/2018 Care Plan: Referral Order SNOMED-CT : [id number] Pending 02/21/2018 Appointment: Elina Alvarado WPtel: [facility]7 [facility] (15 min) Moderate 12/14/2017 Visit Plan: Medicare [...] Summary Completed 11/28/2017 App[facility]ment: [phone] [facility] - Annual Wellness Visit 11/21/2017 [...] allergy spray. 08/29/2017 Appointment: [phone] (15 min) Moderate 08/29/2017 Patient Education: [...] with counseling. 06/13/2017 Appointment: Elina Alvarado WPtel: [phone] [facility] (15 min) Moderate 06/13/2017 Patient Education: Patient Medication Summary Completed 06/13/2017 Appointment: Injection 06/07/2017 Patient Education: Patient Medication Summary Completed 06/07/2017 Visit Plan: Pelvic pain-UA negative-pap done today in the office- will start patient on flagyl for bacterial vaginosis-instructed patient to call if symptoms do not resolve or if any worse. Patient verbalized understanding of plan. 02/16/2017 Appointment: Suma Choi WPtel: [phone] [phone] [place] (30 min) Complex 02/16/2017 Patient Education: [...] current medications. 02/06/2017 Appointment: [facility]varado [facility]Ptel: [phone] [place] (15 min) Moderate 02/06/2017 Patient Education: [...] care surrogate. 11/17/2016 Appointment: Gina Kern WPtel: [facility]8 [facility] [place] [address] - Annual Wellness Visit 11/17/2016 Patient Education: [...] current medications. 10/12/2016 Appointment: Elina Alvarado WPtel: [facility] (15 min) Moderate 10/12/2016 Patient Education: [...] : J06.9 09/05/2016 Appointment: Suma Choi WPtel: [phone] (10 min) Simple 09/05/2016 Patient Education: Patient [...] lexapro 06/21/2016 Appointment: Elina Alvarado WPtel: [phone] [facility] (15 min) Moderate 06/21/2016 Patient Education: Patient Medication Summary Completed 06/21/2016 Visit Plan: Depression - improved with lexapro - continue with current treatment and counseling. 05/24/2016 Appointment: Elina Alvarado WPtel: [phone] [facility] (15 min) Moderate 05/24/2016 Patient Education: Patient Medication Summary Completed 05/24/2016 Visit Plan: Depression - improved on the Lexapro - stop ativan - start on xanax 05/10/2016 Appointment: Elina Alvarado WPtel: [facility] [place] (15 min) Moderate 05/10/2016 Patient [...] Summary Completed 05/03/2016 Appointment: Suma Choi WPtel: [phone] [place] (15 min) Moderate 02/26/2016 Visit Plan: [...] and to maintain independece in the home. Tobcuuavlk-srbiazegryoa-ulsung to wellbutrin Pneumonia 13 administered today in [...] and to maintain independece in the home. Gahanculph-caxobysrmknb-tksceq to wellbutrin Pneumonia 13 administered today in the office 11/13/2015 Appointment: [facility] - Annual Wellness Visit 11/13/2015 Patient Education: Patient Medication Summary Completed 11/13/2015 Patient Education: Obesity Completed 11/13/2015 Care Plan: [facility]AM[facility]DIG[facility] 94477[facility]3 Ordered 11/13/2015 Appointment: Lab Draw 08/10/2015 Visit [...] current medications. 07/06/2015 Appointment: Elina Alvarado WPtel: [address] [place], [place] [address] [place] (30 min) Complex 07/06/2015 Patient Education: [...] upon discharge. 12/10/2014 Appointment: Elina Alvarado WPtel: [facility] [facility] 12/10/2014 Patient Education: Patient Medication Summary Completed 12/10/2014 Visit Plan: Urinary incontinence and Pelvic discomfort - recommended pt to have evaluation by Dr. Brandt - pt agreeable to referral. Pt is to call if abdominal pain does not improve. 10/16/2014 Appointment: Elina Alvarado WPtel: [address] [place], [place] [address] [place] Follow up 10/16/2014 Patient Education: Patient Medication Summary Completed 10/16/2014 Care Plan: Referral Order SNOMED-CT : [id number] Ordered 10/16/2014 Patient Education: Patient Medication Summary Completed 10/10/2014 Visit Plan: Pelvic pain-history of mesh implant-recommend CT abd/pelvis to evaluate for any abnormality-refer to Dr Woods if pain does not improve Urinary incontinence-check UA with C&S if indicated 10/09/2014 Patient Education: Patient Medication Summary Completed 10/09/2014 Care Plan: CT ABD & PELV 1/> [facility] : [address]12-5 Ordered 10/09/2014 Visit Plan: Hypothyroidism - pt with chronic hypothyroidism, continue with current medication, will monitor pt to signs or symptoms of lack of adequate supplementation. Pt is to continue with current dose of medication unless directed otherwise. Check labs at regular intervals wither q 3 months or q 6 months based on previous levels of control. 08/26/2014 Appointment: Elina Alvarado WPtel: [facility] [id number] Follow up 08/26/2014 Patient Education: Patient Medication [...] with screening. 04/23/2014 Appointment: Elina Alvarado WPtel: [facility] Sick 04/23/2014 Patient Education: Patient Medication Summary Completed 04/23/2014 Care Plan: Referral Order SNOMED-CT : [id number] Ordered 04/23/2014 Appointment: Nurse Visit 04/15/2014 Patient Education: Patient Medication Summary Completed 04/15/2014 Appointment: [facility]ado [phone] [place] [place] Injection 02/11/2014 Patient Education: Patient Medication [...] treatment. 12/05/2013 Appointment: Elina Alvarado WPtel: [phone] [facility] Follow up 12/05/2013 Patient Education: Patient [...] medications. 11/05/2013 Appointment: Elina Alvarado WPtel: [phone] [facility] Follow up 11/05/2013 Patient Education: Patient [...] of control. 10/15/2013 Appointment: Elina Alvarado WPtel: [phone] [facility] [facility] 10/15/2013 Patient Education: Patient [...] care surrogate. 09/30/2013 Appointment: Elina Alvarado WPtel: [facility] [facility] - Initial Preventive Physical Exam 09/30/2013 Patient Education: Patient Medication Summary Completed 09/30/2013 Appointment: Elina Alvarado WPtel: [facility] [facility] - Initial Preventive Physical Exam [...] use. 03/13/2013 Appointment: [facility]varado [phone] [place] Follow up 03/13/2013 Patient Education: Patient Medication [...] 10/04/2012 Appointment: Elina Alvarado WPtel: [phone] [facility] Follow up 10/04/2012 Patient Education: Patient [...] anxiety attacks. 08/22/2011 Appointment: El[facility] Alvarado [facility]el[phone] [place] [place] Other 08/22/2011 Patient Education: Patient Medication [...] THYROID ULTRASOUND 06/17/2011 Appointment: [facility] Alvarado [facility]el[phone] [place] Other 06/17/2011 Patient Education: Patient Medication Summary Completed 06/17/2011 Referral: Raimundo Brandt WPtel: Referral App[facility]ment [facility] [place] Referral Initiated Referral: Dr. Phelps WPtel: Referral [...] and to maintain independece in the home. Enhzuhparc-jkgdgwzscmnp-ptrplw to wellbutrin Pneumonia 13 administered today in [...] and to maintain independece in the home. Xblathvrka-nihzjgeclpqy-ceztqt to wellbutrin Pneumonia 13 administered today in [...] D[employer] paperwork for health care surrogate. . Laurenertoe - Foot pain - pt [...]
--- OUTSIDE RECORDS SUMMARY | 2018-12-27 09:35 | XMS REPORT | CCD ---
Author Author [facility] Organization [facility] Address [address] [place] [address] Phone Care Team Providers Care Supervisor Cereal Name Role Phone PP Unavailable CCM Unavailable Summary Purpose Interface Exchange Insurance Providers Payer name Policy type / Coverage type Covered democrat ID Effective Begin Date Effective End Date WPS Medicare Part B [id number] 2018 Unknown [facility] [id number] 2018 Unknown Family history Sister Diagnosis Age [...] Description Effective Dates Tobacco history SNOMED CT: 1136846 Former smoker quit 2 years ago, social smoker, 1 pack per month 200709/30/2013 Employment 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 Marital status Unknown 06/17/[address]: 773459 Currently drinks alcohol 2 beers/week 06/17/2011 Has [...] Condition Status Onset Date Resolved Date Acute recurrent maxillary sinusitis ICD-9: 461.0 ICD-10: J01.01 Active 09/11/2018 Unknown Cough ICD-9: 786.2 ICD-10: R05 Active 07/22/2015 Unknown Dysuria ICD-9: 788.1 ICD-10: R30.0 Active [...] 02/16/2017 Unknown Pelvic and perineal pain ICD-9: [id number] ICD-10: R10.2 Active 02/16/2017 Unknown Hypothyroidism, unspecified [...] Condition Codes Effective Dates Condition Status Acute recurrent maxillary sinusitis ICD-9: 461.0 ICD-10: J01.01 09/11/2018 Active Cough ICD-9: 786.2 ICD-10: R05 07/22/2015 Active Dysuria ICD-9: 788.1 ICD-10: R30.0 05/07/2018 [...] 02/16/2017 Active Pelvic and perineal pain ICD-9: [id number] ICD-10: R10.2 02/16/2017 Active Hypothyroidism, unspecified ICD-9: [...] Start Date Stop Date Status Fill Instructions Xanax 0.5 mg tablet RxNorm: 365846 1 Tablet(s) PO QID as needed anxiety 09/24/2018 11/22/2018 Active Kenalog 40 mg/mL suspension for injection RxNorm: 9104965 1 Milliliter(s) Inj 09/11/2018 09/11/2018 Inactive Augmentin 875 mg-125 mg tablet RxNorm: 040404 1 Tablet(s) PO BID 09/11/2018 09/17/2018 Inactive naproxen 500 mg tablet RxNorm: 257064 1 Tablet(s) PO BID 07/12/2018 07/16/2018 Inactive Synthroid 112 mcg tablet RxNorm: 068600 TAKE ONE TABLET BY MOUTH DAILY 07/02/2018 12/28/2018 Active Lipitor 10 mg tablet RxNorm: 424813 TAKE ONE TABLET BY MOUTH EVERY DAY 06/06/2018 05/31/2019 Active Lexapro 20 mg tablet RxNorm: 183858 TAKE ONE TABLET BY MOUTH DAILY 05/08/2018 12/03/2018 Active Synthroid 100 mcg tablet RxNorm: 533813 TAKE ONE TABLET BY MOUTH EVERY OTHER DAY 04/10/2018 10/06/2018 Active Synthroid 100 mcg tablet RxNorm: 214771 1 Tablet(s) PO every other day 12/11/2017 04/09/2018 Inactive QOD -alternate with 112mcg DISPENSE BRAND NAME Synthroid 112 mcg tablet RxNorm: 203149 1 Tablet(s) every other day 11/28/2017 03/27/2018 Inactive QOD alternate with 100mcg Synthroid 100 mcg tablet RxNorm: 087148 1 Tablet(s) PO every other day 11/28/2017 12/10/2017 Inactive QOD -alternate with 112mcg DISPENSE BRAND NAME Synthroid 100 mcg tablet RxNorm: 039761 1 Tablet(s) PO every other day 11/28/2017 11/27/2017 Inactive QOD -alternate with 112mcg Xanax 0.5 mg tablet RxNorm: 883799 1 Tablet(s) PO QID as needed anxiety 11/14/2017 01/11/2018 Inactive Lexapro 20 mg tablet RxNorm: 659310 TAKE ONE TABLET BY MOUTH DAILY 11/13/2017 05/07/2018 Inactive Xanax 0.5 mg tablet RxNorm: 200567 1 Tablet(s) PO QID as needed anxiety 09/11/2017 11/08/2017 Inactive Tamiflu 75 mg capsule RxNorm: 704567 1 Capsule(s) PO BID 08/29/2017 09/02/2017 Inactive Synthroid 112 mcg tablet RxNorm: 433455 1 Tablet(s) daily 08/14/2017 11/27/2017 Inactive fyi - medication changed, refill x 6 - #30 pills Synthroid 112 mcg tablet RxNorm: 644428 1 Tablet(s) daily 06/13/2017 08/13/2017 Inactive fyi - medication changed, refill x 6 - #30 pills Lexapro 20 mg tablet RxNorm: 567461 TAKE ONE TABLET BY MOUTH DAILY 06/09/2017 11/05/2017 Inactive Synthroid 112 mcg tablet RxNorm: 886047 TAKE 1 TABLET BY MOUTH DAILY EXCEPT TAKE 1/2 TABLET ON MONDAY, MONDAY, AND Monday05/22/2017 06/12/2017 Inactive Lipitor 10 mg tablet RxNorm: 325932 TAKE ONE TABLET BY MOUTH EVERY DAY 03/08/2017 05/31/2018 Inactive Flagyl 500 mg tablet RxNorm: 084693 1 Tablet(s) PO TID 02/16/2017 02/22/2017 Inactive Xanax 0.5 mg tablet RxNorm: 369822 1 Tablet(s) PO QID as needed anxiety 12/23/2016 03/21/2017 Inactive Synthroid 112 mcg tablet RxNorm: 665002 TAKE 1 TABLET BY MOUTH DAILY EXCEPT FOR TAKE 1/2 TABLET ON MONDAY, MONDAY, AND Monday12/23/2016 04/13/2017 Inactive Lexapro 20 mg tablet RxNorm: 712571 TAKE ONE TABLET BY MOUTH DAILY 11/29/2016 05/27/2017 Inactive Zithromax Z-Que 250 mg tablet RxNorm: 246693 1 Tablet(s) PO UD 09/05/2016 09/09/2016 Inactive zpack Kenalog 40 mg/mL suspension for injection RxNorm: 3715589 1 Milliliter(s) Inj 09/05/2016 09/05/2016 Inactive Lipitor 10 mg tablet RxNorm: 360794 TAKE ONE TABLET BY MOUTH EVERY DAY 08/30/2016 02/25/2017 Inactive Ativan 1 mg tablet RxNorm: 624680 1 Tablet(s) PO Q6 PRN as needed TAKE ONE TABLET BY MOUTH THREE TIMES A DAY OR EVERY 6 HOURS NEEDED FOR ANXIETY 08/30/2016 12/22/2016 Inactive Synthroid 112 mcg tablet RxNorm: 049410 1 Tablet(s) PO daily except one-half tab on /Sat 08/23/2016 12/12/2016 Inactive will refill when needed Lexapro 20 mg tablet RxNorm: 312888 TAKE ONE TABLET BY MOUTH DAILY 08/02/2016 11/28/2016 Inactive Synthroid 112 mcg tablet RxNorm: 750184 1 Tablet(s) PO daily except 1/2 tab wed and sat 05/25/2016 08/22/2016 Inactive will refill when needed Xanax 0.5 mg tablet RxNorm: 451168 1 Tablet(s) PO QID as needed anxiety 05/10/2016 08/29/2016 Inactive Lexapro 20 mg tablet RxNorm: 460952 1 Tablet(s) PO daily 05/03/2016 07/31/2016 Inactive 1/2 tab x 1 week then increase to a full pill daily buspirone 5 mg tablet RxNorm: 955985 TAKE ONE-HALF TABLET BY MOUTH TWICE A DAY 03/15/2016 05/02/2016 Inactive Synthroid 112 mcg tablet RxNorm: 292416 1 Tablet(s) PO daily 02/25/2016 05/24/2016 Inactive Ativan 1 mg tablet RxNorm: 591508 Tablet(s) TAKE ONE TABLET BY MOUTH THREE TIMES A DAY OR EVERY 6 HOURS NEEDED FOR ANXIETY 02/04/2016 05/08/2016 Inactive Synthroid 125 mcg tablet RxNorm: 935484 TAKE ONE TABLET BY MOUTH TWICE WEEKLY 01/11/2016 02/24/2016 Inactive Synthroid 112 mcg tablet RxNorm: 355764 TAKE ONE TABLET BY MOUTH FIVE DAYS A WEEK 01/11/2016 02/24/2016 Inactive Wellbutrin 75 mg tablet RxNorm: 783693 TAKE ONE TABLET BY MOUTH TWICE A DAY 01/11/2016 05/02/2016 Inactive Ativan 1 mg tablet RxNorm: 998236 TAKE ONE TABLET BY MOUTH THREE TIMES A DAY OR EVERY 6 HOURS NEEDED 12/03/2015 12/27/2015 Inactive Lipitor 10 mg tablet RxNorm: 321441 TAKE ONE TABLET BY MOUTH EVERY DAY 12/03/2015 08/28/2016 Inactive Ativan 1 mg tablet RxNorm: 516421 Tablet(s) TAKE ONE TABLET BY MOUTH THREE TIMES A DAY AND TAKE ONE TABLET BY MOUTH EVERY 6 HOURS NEEDED FOR ANXIETY 12/03/2015 12/02/2015 Inactive (Response to an electronic controlled substance refill request - RxReferenceNumber: [id number]) Wellbutrin 75 mg tablet RxNorm: 230590 1 Tablet(s) PO BID 11/13/2015 01/10/2016 Inactive Ativan 1 mg tablet RxNorm: 295429 Tablet(s) TAKE ONE TABLET BY MOUTH THREE TIMES A DAY AND TAKE ONE TABLET BY MOUTH EVERY 6 HOURS NEEDED FOR ANXIETY 09/23/2015 10/30/2015 Inactive (Response to an electronic controlled substance refill request - RxReferenceNumber: [id number]) buspirone 5 mg tablet RxNorm: 889522 TAKE ONE-HALF TABLET BY MOUTH TWICE A DAY 08/18/2015 03/01/2016 Inactive ceftriaxone 500 mg solution for injection RxNorm: 3356339 Inj 07/23/2015 07/23/2015 Inactive Zithromax Z-Que 250 mg tablet RxNorm: 770683 1 Tablet(s) PO UD 07/23/2015 07/27/2015 Inactive ZPACK buspirone 5 mg tablet RxNorm: 165616 1 Tablet(s) PO daily 07/06/2015 10/03/2015 Inactive buspirone 5 mg tablet RxNorm: 436708 1/2 Tablet(s) PO BID 05/26/2015 07/05/2015 Inactive Lipitor 10 mg tablet RxNorm: 726450 TAKE ONE TABLET BY MOUTH EVERY DAY 04/23/2015 10/19/2015 Inactive Ativan 1 mg tablet RxNorm: 524709 Tablet(s) TAKE ONE TABLET BY MOUTH THREE TIMES A DAY AND TAKE ONE TABLET BY MOUTH EVERY 6 HOURS NEEDED FOR ANXIETY 02/23/2015 04/01/2015 Inactive (Response to an electronic controlled substance refill request - RxReferenceNumber: [id number]) Synthroid 125 mcg tablet RxNorm: 548488 1 Tablet(s) PO UD twice weekly 12/10/2014 06/07/2015 Inactive Synthroid 112 mcg tablet RxNorm: 010390 1 Tablet(s) PO UD TAKE ONE TABLET BY MOUTH 5 days a week 12/10/2014 12/04/2015 Inactive Lexapro 20 mg tablet RxNorm: 776417 1 Tablet(s) PO daily 11/26/2014 11/12/2015 Inactive Lipitor 10 mg tablet RxNorm: 624396 TAKE ONE TABLET BY MOUTH EVERY DAY 10/21/2014 04/18/2015 Inactive amoxicillin 500 mg capsule RxNorm: 007713 1 Capsule(s) PO TID 10/15/2014 10/21/2014 Inactive take probiotic BID x 7 days during abt period amoxicillin 500 mg capsule RxNorm: 161520 1 Capsule(s) PO TID 10/15/2014 10/14/2014 Inactive take probiotic BID x 7 days during abt period Ativan 1 mg tablet RxNorm: 216796 TAKE ONE TABLET BY MOUTH THREE TIMES A DAY AND TAKE ONE TABLET BY MOUTH EVERY 6 HOURS NEEDED FOR ANXIETY 08/21/2014 09/28/2014 Inactive (Response to an electronic controlled substance refill request - RxReferenceNumber: [id number]) Ativan 1 mg tablet RxNorm: 855245 1 Tablet(s) PO tid and Q6 PRN as needed 08/18/2014 08/21/2014 Inactive doxycycline hyclate 100 mg tablet RxNorm: 012406 1 Tablet(s) PO BID 04/23/2014 05/25/2015 Inactive prednisone 10 mg tablets in a dose pack RxNorm: 062173 1 Tablet(s) PO 02/14/2014 05/25/2015 Inactive Kenalog 40 mg/mL suspension for injection RxNorm: 3453428 1 Milliliter(s) Inj 02/11/2014 02/11/2014 Inactive Keflex 500 mg capsule RxNorm: 102844 1 Capsule(s) PO TID 01/21/2014 01/27/2014 Inactive Kenalog 40 mg/mL suspension for injection RxNorm: 0235021 Milliliter(s) Inj 01/21/2014 01/21/2014 Inactive Synthroid 112 mcg tablet RxNorm: 354525 1 Tablet(s) PO daily TAKE ONE TABLET BY MOUTH EVERY DAY 12/05/2013 11/29/2014 Inactive Ativan 1 mg tablet RxNorm: 585978 1 Tablet(s) PO Q6 PRN 11/05/2013 02/02/2014 Inactive Lexapro 20 mg tablet RxNorm: 249641 1 Tablet(s) PO daily 11/05/2013 11/04/2013 Inactive Lexapro 20 mg tablet RxNorm: 305742 1 Tablet(s) PO daily 11/05/2013 10/30/2014 Inactive Lipitor 10 mg tablet RxNorm: 504355 1 Tablet(s) PO QPM TAKE ONE TABLET BY MOUTH EVERY DAY 09/30/2013 10/20/2014 Inactive Lexapro 20 mg tablet RxNorm: 682038 1 Tablet(s) PO daily 09/30/2013 11/04/2013 Inactive Synthroid 125 mcg tablet RxNorm: 817987 1 Tablet(s) PO daily 09/10/2013 12/04/2013 Inactive Synthroid 100 mcg tablet RxNorm: 350029 1 Tablet(s) PO daily TAKE ONE TABLET BY MOUTH EVERY DAY 09/06/2013 09/09/2013 Inactive Lipitor 10 mg tablet RxNorm: 521713 Tablet(s) PO TAKE ONE TABLET BY MOUTH EVERY DAY 08/15/2013 09/29/2013 Inactive Synthroid 100 mcg tablet RxNorm: 470527 1 Tablet(s) PO daily TAKE ONE TABLET BY MOUTH EVERY DAY 04/26/2013 09/05/2013 Inactive Ativan 1 mg tablet RxNorm: 096761 1 Tablet(s) PO Q6 PRN 03/13/2013 No Stop Date Active Synthroid 100 mcg tablet RxNorm: 164390 1 Tablet(s) PO daily TAKE ONE TABLET BY MOUTH EVERY DAY 03/13/2013 04/25/2013 Inactive Lexapro 20 mg tablet RxNorm: 472854 1/2 Tablet(s) PO BID 03/13/2013 09/29/2013 Inactive Synthroid 112 mcg tablet RxNorm: 503208 Tablet(s) PO TAKE ONE TABLET BY MOUTH EVERY DAY 01/08/2013 03/12/2013 Inactive Lexapro 20 mg tablet RxNorm: 883715 Tablet(s) PO TAKE 1/2 TABLET EVERY MORNING AND TAKE ONE TABLET BY MOUTH AT BEDTIME 10/18/2012 03/12/2013 Inactive Lipitor 20 mg tablet RxNorm: 475394 1/2 Tablet(s) PO daily 08/20/2012 02/04/2013 Inactive Lipitor 10 mg tablet RxNorm: 838514 1 Tablet(s) PO daily 05/23/2012 08/19/2012 Inactive Synthroid 112 mcg tablet RxNorm: 385269 1 Tablet(s) PO daily 12/16/2011 01/07/2013 Inactive Synthroid 112 mcg Tab RxNorm: 974710 1 Tablet(s) PO daily 12/16/2011 12/15/2011 Inactive Lipitor 10 mg tablet RxNorm: 682027 1 Tablet(s) PO daily 12/15/2011 05/22/2012 Inactive Synthroid 112 mcg Tab RxNorm: 808961 1 Tablet(s) PO every other day 11/09/2011 12/15/2011 Inactive every other day Synthroid 112 mcg Tab RxNorm: 673858 1 Tablet(s) PO every other day 10/21/2011 11/08/2011 Inactive every other day Synthroid 125 mcg Tab RxNorm: 077530 1 Tablet(s) PO every other day 10/21/2011 12/16/2011 Inactive every other day Lexapro 20 mg tablet RxNorm: 976217 1.5 Tablet(s) PO daily 1/2 pill in AM and 1 pill at bedtime 09/22/2011 04/18/2012 Inactive 1/2 q am 1 q hs diazepam 5 mg Tab RxNorm: 659519 1 Tablet(s) PO daily 1 tab bid prn 09/21/2011 05/17/2012 Inactive Lexapro 20 mg Tab RxNorm: 069573 1.5 Tablet(s) PO daily 1/2 pill in AM and 1 pill at bedtime 08/22/2011 09/21/2011 Inactive diazepam 5 mg Tab RxNorm: 580196 1 Tablet(s) PO daily 1 tab bid prn 06/20/2011 09/20/2011 Inactive diazepam 5 mg Tab RxNorm: 008616 1 Tablet(s) PO daily 1 tab bid prn 06/20/2011 06/19/2011 Inactive diazepam 5 mg Tab RxNorm: 408807 1 Tablet(s) PO daily 1 tab bid prn 06/17/2011 06/19/2011 Inactive Lipitor 10 mg Tab RxNorm: 270766 1 Tablet(s) PO daily 05/31/2011 11/26/2011 Inactive diazepam 5 mg Tab RxNorm: 993113 1 Tablet(s) PO BID 1 tab bid prn 04/21/2011 05/20/2011 Inactive Calcium 600 + D(3) Oral RxNorm: Oral No Start Date Active Menest 0.625 mg Tab RxNorm: 385428 1 Tablet(s) PO daily No Start Date 06/16/2011 Inactive Synthroid 125 mcg tablet RxNorm: 153296 Tablet(s) PO No Start Date 09/09/2013 Inactive Ativan 1 mg tablet RxNorm: 955650 1 Tablet(s) PO Q6 PRN No Start Date 08/21/2011 Inactive aspirin 81 mg Tab, Delayed Release RxNorm: 6262400 1 Tablet(s) PO daily No Start Date 09/29/2013 Inactive Lexapro 10 mg Tab RxNorm: 218492 1 Tablet(s) PO daily No Start Date 08/22/2011 Inactive prednisone 10 mg tablets in a dose pack RxNorm: 307735 1 Tablet(s) PO No Start Date 02/13/2014 Inactive Synthroid 112 mcg Tab RxNorm: 873899 Tablet(s) PO tues/thurs/sat/sun No Start Date 10/20/2011 Inactive lorazepam 1 mg Tab RxNorm: 935410 Tablet(s) PO Q6 PRN No Start Date 11/04/2013 Inactive Lipitor 20 mg tablet RxNorm: 448032 1/2 Tablet(s) PO daily No Start Date 08/20/2012 Inactive Vitamin D2 oral RxNorm: oral No Start Date 09/29/2013 Inactive Synthroid 125 mcg Tab RxNorm: 091938 1 Tablet(s) PO No Start Date 10/20/2011 Inactive synthroid 112 mcg tue thur sat sun Medication Administered Medication Codes Instructions Start Date Status Kenalog 40 mg/mL suspension for injection RxNorm: 3593179 1Milliliter 09/11/2018 No longer Active Kenalog 40 mg/mL suspension for injection RxNorm: 7821829 1Milliliter 09/05/2016 No longer Active ceftriaxone 500 mg solution for injection RxNorm: 9212681 07/23/2015 No longer Active Kenalog 40 mg/mL suspension for injection RxNorm: 9938763 1Milliliter 02/11/2014 No longer Active Kenalog 40 mg/mL suspension for injection RxNorm: 9463723 Milliliter 01/21/2014 No longer Active Immunizations Vaccine Codes Date Status Influenza CVX: 141 04/24/2018 completed Influenza CVX: 141 06/07/2017 completed Pneumococcal (Adult) CVX: 133 11/13/2015 completed Influenza CVX: 141 04/15/2014 completed Pneumococcal (Adult) CVX: 33 04/15/2014 completed PPD Unknown 10/10/2013 completed Influenza CVX: 141 09/30/2013 completed Assessments Condition Codes Effective Dates Acute recurrent maxillary sinusitis ICD-10: J01.01 ICD-9: 461.0 09/11/2018 Cough ICD-10: R05 ICD-9: 786.2 09/11/2018 Pain in right hand ICD-10: M79.641 [...] Pelvic and perineal pain ICD-10: R10.2 ICD-9: [id number] 02/16/2017 Acute vaginitis ICD-10: N76.0 ICD-9: 623.5 [...] Reason For Visit Effective Dates Notes cough 09/11/2018 finger and hand pain 07/12/2018 [...] Observation Code Item Item Code Result Date T4 Ord4 T4 11.1 ug/dL 03/12/2018 Tsh [...] 28.0 % 11/23/2017 Cbc With Differential Ord2 [place]% 9.0 % 11/23/2017 Cbc With Differential Ord2 MCH 29.7 pg 11/23/2017 Cbc With Differential Ord2 Eos% 3.3 % 11/23/2017 Cbc With Differential Ord2 MCHC 33.4 pg 11/23/2017 Cbc With Differential Ord2 PLT 467 K/ul 11/23/2017 Cbc With Differential Ord2 Baso% 0.3 % 11/23/2017 Cbc With Differential Ord2 Neut ABS# 3.75 K/ul 11/23/2017 Cbc With Differential Ord2 RDW 13.1 % 11/23/2017 Cbc With Differential Ord2 Lymph ABS# 1.77 K/ul 11/23/2017 Cbc With Differential Ord2 [place] ABS# 0.6 K/ul 11/23/2017 Cbc With Differential Ord2 Eos ABS# 0.2 K/ul 11/23/2017 Cbc With Differential Ord2 Baso ABS# 0.0 K/ul 11/23/2017 Tsh Ord6 TSH (3rd IS) 0.17 uIU/mL 11/23/2017 Free T4 Ltk271 FREE T4 1.10 ng/dL 11/23/2017 Comp Metabolic Klb830 NA 142 mEq/L 11/23/2017 Comp Metabolic Tqy499 K 4.4 mEq/L 11/23/2017 Comp Metabolic Gic653 CL 109 mEq/L 11/23/2017 Comp Metabolic Tbo081 CO2 28.0 mEq/L 11/23/2017 Comp Metabolic Mph686 ANION GAP 9 11/23/2017 Comp Metabolic Yyz888 GLUCOSE 106 mg/dL 11/23/2017 Comp Metabolic Vjl622 Creat 0.9 mg/dL 11/23/2017 Comp Metabolic Sbj402 eGFR 68 ml/min/1.73m2 11/23/2017 Comp Metabolic Qar076 BUN 17 mg/dL 11/23/2017 Comp Metabolic Scp695 B/C Ratio 19.3 Ratio 11/23/2017 Comp Metabolic Olc939 CALCIUM 9.0 mg/dL 11/23/2017 Comp Metabolic Zzy931 ALK PHOS 65 U/L 11/23/2017 Comp Metabolic Wqi821 AST(SGOT) 18 U/L 11/23/2017 Comp Metabolic Gxe722 ALT(SGPT) 16 U/L 11/23/2017 Comp Metabolic Jja973 BILI T 0.5 mg/dL 11/23/2017 Comp Metabolic Url803 ALBUMIN 4.2 g/dL 11/23/2017 Comp Metabolic Uva428 TPRO 6.5 g/dL 11/23/2017 Comp Metabolic Rou560 GLOB 2.3 g/dL 11/23/2017 Comp Metabolic Ysl659 A/G Ratio 1.8 Ratio 11/23/2017 Comp Metabolic Zgc658 Osmo 285 mOsmo 11/23/2017 Lipid Ord30 CHOL [...] hTSH II 4.83 uIU/mL 06/07/2017 Comp Metabolic Cxf602 NA 141 mEq/L 06/07/2017 Comp Metabolic Ugz820 K 4.3 mEq/L 06/07/2017 Comp Metabolic Uvi946 CL 106 mEq/L 06/07/2017 Comp Metabolic Ifk743 CO2 26.0 mEq/L 06/07/2017 Comp Metabolic Ccy434 ANION GAP 13 06/07/2017 Comp Metabolic Vth779 GLUCOSE 93 mg/dL 06/07/2017 Comp Metabolic Oas981 Creat 0.9 mg/dL 06/07/2017 Comp Metabolic Mhr387 eGFR 65 ml/min/1.73m2 06/07/2017 Comp Metabolic Ums937 BUN 10 mg/dL 06/07/2017 Comp Metabolic Cqs811 B/C Ratio 11.0 Ratio 06/07/2017 Comp Metabolic Gje142 CALCIUM 8.9 mg/dL 06/07/2017 Comp Metabolic Bir054 ALK PHOS 69 U/L 06/07/2017 Comp Metabolic Xwf204 AST(SGOT) 18 U/L 06/07/2017 Comp Metabolic Mzq903 ALT(SGPT) 15 U/L 06/07/2017 Comp Metabolic Gjm946 BILI T 0.5 mg/dL 06/07/2017 Comp Metabolic Sed915 ALBUMIN 4.1 g/dL 06/07/2017 Comp Metabolic Usl969 TPRO 6.5 g/dL 06/07/2017 Comp Metabolic Fun572 GLOB 2.4 g/dL 06/07/2017 Comp Metabolic Dob106 A/G Ratio 1.7 Ratio 06/07/2017 Comp Metabolic Oox070 Osmo 280 mOsmo 06/07/2017 Cbc With Differential [...] 30.1 % 06/07/2017 Cbc With Differential Ord2 [place]% 9.1 % 06/07/2017 Cbc With Differential Ord2 MCH 30.7 pg 06/07/2017 Cbc With Differential Ord2 MCHC 33.7 pg 06/07/2017 Cbc With Differential Ord2 Eos% 3.5 % 06/07/2017 Cbc With Differential Ord2 Baso% 0.6 % 06/07/2017 Cbc With Differential Ord2 PLT 479 K/ul 06/07/2017 Cbc With Differential Ord2 RDW 12.9 % 06/07/2017 Cbc With Differential Ord2 Neut ABS# 3.05 K/ul 06/07/2017 Cbc With Differential Ord2 Lymph ABS# 1.62 K/ul 06/07/2017 Cbc With Differential Ord2 [place] ABS# 0.5 K/ul 06/07/2017 Cbc With Differential Ord2 Eos ABS# 0.2 K/ul 06/07/2017 Cbc With Differential Ord2 Baso ABS# 0.0 K/ul 06/07/2017 Free T4 Hgp340 FREE T4 0.92 ng/dL 06/07/2017 Tsh Ord6 hTSH II 1.07 uIU/mL 11/17/2016 Free T4 Erk604 FREE T4 1.02 ng/dL 11/17/2016 Lipid Ord30 CHOL 195 mg/dL 10/13/2016 Lipid Ord30 HDL 68.0 mg/dl 10/13/2016 Lipid Ord30 TRIG 69 mg/dL 10/13/2016 Lipid Ord30 LDL 113 mg/dL 10/13/2016 Lipid Ord30 C/HDL 2.9 Ratio 10/13/2016 Comp Metabolic Usx730 NA 138 mEq/L 10/13/2016 Comp Metabolic Xie251 K 4.4 mEq/L 10/13/2016 Comp Metabolic Irl392 CL 102 mEq/L 10/13/2016 Comp Metabolic Piz477 CO2 29.0 mEq/L 10/13/2016 Comp Metabolic Ewz789 ANION GAP 11 10/13/2016 Comp Metabolic Yad886 GLUCOSE 85 mg/dL 10/13/2016 Comp Metabolic Lvn486 Creat 1.0 mg/dL 10/13/2016 Comp Metabolic Ldi676 eGFR 59 ml/min/1.73m2 10/13/2016 Comp Metabolic Mpo745 BUN 21 mg/dL 10/13/2016 Comp Metabolic Hhv834 B/C Ratio 21.2 Ratio 10/13/2016 Comp Metabolic Ksn053 CALCIUM 9.7 mg/dL 10/13/2016 Comp Metabolic Gwc970 ALK PHOS 70 U/L 10/13/2016 Comp Metabolic Iil949 AST(SGOT) 17 U/L 10/13/2016 Comp Metabolic Kcu753 ALT(SGPT) 14 U/L 10/13/2016 Comp Metabolic Gcj174 BILI T 0.9 mg/dL 10/13/2016 Comp Metabolic Kgz793 ALBUMIN 4.4 g/dL 10/13/2016 Comp Metabolic Cnr863 TPRO 7.1 g/dL 10/13/2016 Comp Metabolic Vby980 GLOB 2.7 g/dL 10/13/2016 Comp Metabolic Hig862 A/G Ratio 1.6 Ratio 10/13/2016 Comp Metabolic Vcl046 Osmo 278 mOsmo 10/13/2016 Cbc With Differential [...] 23.8 % 10/13/2016 Cbc With Differential Ord2 [place]% 7.7 % 10/13/2016 Cbc With Differential Ord2 MCH 29.7 pg 10/13/2016 Cbc With Differential Ord2 MCHC 33.2 pg 10/13/2016 Cbc With Differential Ord2 Eos% 1.8 % 10/13/2016 Cbc With Differential Ord2 PLT 521 K/ul 10/13/2016 Cbc With Differential Ord2 Baso% 0.3 % 10/13/2016 Cbc With Differential Ord2 RDW 13.9 % 10/13/2016 Cbc With Differential Ord2 Neut ABS# 3.98 K/ul 10/13/2016 Cbc With Differential Ord2 Lymph ABS# 1.43 K/ul 10/13/2016 Cbc With Differential Ord2 [place] ABS# 0.5 K/ul 10/13/2016 Cbc With Differential Ord2 Eos ABS# 0.1 K/ul 10/13/2016 Cbc With Differential Ord2 Baso ABS# 0.0 K/ul 10/13/2016 Free T4 Wee696 FREE T4 1.31 ng/dL 08/17/2016 Tsh Ord6 hTSH II 0.64 uIU/mL 08/17/2016 Free T4 Zup350 FREE T4 1.49 ng/dL 05/10/2016 Comp Metabolic Dhe595 NA 139 mEq/L 05/10/2016 Comp Metabolic Mpp330 K 4.5 mEq/L 05/10/2016 Comp Metabolic Oxa775 CL 104 mEq/L 05/10/2016 Comp Metabolic Irf955 CO2 24.0 mEq/L 05/10/2016 Comp Metabolic Fim066 ANION GAP 16 05/10/2016 Comp Metabolic Pra997 GLUCOSE 87 mg/dL 05/10/2016 Comp Metabolic Uwf571 Creat 0.9 mg/dL 05/10/2016 Comp Metabolic Vsd587 eGFR 71 ml/min/1.73m2 05/10/2016 Comp Metabolic Jis454 BUN 12 mg/dL 05/10/2016 Comp Metabolic Iqq020 B/C Ratio 14.1 Ratio 05/10/2016 Comp Metabolic Xew135 CALCIUM 9.6 mg/dL 05/10/2016 Comp Metabolic Ila511 ALK PHOS 89 U/L 05/10/2016 Comp Metabolic Jsd192 AST(SGOT) 17 U/L 05/10/2016 Comp Metabolic Vud302 ALT(SGPT) 17 U/L 05/10/2016 Comp Metabolic Set197 BILI T 0.9 mg/dL 05/10/2016 Comp Metabolic Kjh815 ALBUMIN 4.2 g/dL 05/10/2016 Comp Metabolic Lmz453 TPRO 6.7 g/dL 05/10/2016 Comp Metabolic Hgz769 GLOB 2.5 g/dL 05/10/2016 Comp Metabolic Pxy647 A/G Ratio 1.7 Ratio 05/10/2016 Comp Metabolic Qhx558 Osmo 277 mOsmo 05/10/2016 Cbc With Differential Ord2 WBC 6.60 K/ul 05/10/2016 Cbc With Differential Ord2 RBC 4.98 M/ul 05/10/2016 Cbc With Differential Ord2 HGB 14.5 g/dl 05/10/2016 Cbc With Differential Ord2 Neut% 64.4 % 05/10/2016 Cbc With Differential Ord2 HCT 42.6 % 05/10/2016 Cbc With Differential Ord2 Lymph% 23.8 % 05/10/2016 Cbc With Differential Ord2 MCV 85.5 fl 05/10/2016 Cbc With Differential Ord2 [place]% 8.3 % 05/10/2016 Cbc With Differential Ord2 MCH 29.1 pg 05/10/2016 Cbc With Differential Ord2 MCHC 34.0 pg 05/10/2016 Cbc With Differential Ord2 Eos% 2.9 % 05/10/2016 Cbc With Differential Ord2 PLT 457 K/ul 05/10/2016 Cbc With Differential Ord2 Baso% 0.6 % 05/10/2016 Cbc With Differential Ord2 Neut ABS# 4.25 K/ul 05/10/2016 Cbc With Differential Ord2 RDW 13.5 % 05/10/2016 Cbc With Differential Ord2 Lymph ABS# 1.57 K/ul 05/10/2016 Cbc With Differential Ord2 [place] ABS# 0.6 K/ul 05/10/2016 Cbc With Differential Ord2 Eos ABS# 0.2 K/ul 05/10/2016 Cbc With Differential Ord2 Baso ABS# 0.0 K/ul 05/10/2016 Tsh Ord6 hTSH II 0.03 uIU/mL 05/10/2016 Free T4 Geo760 FREE T4 1.67 ng/dL 02/18/2016 Tsh Ord6 hTSH II 0.06 uIU/mL 02/18/2016 Comp Metabolic Tqq280 NA 138 mEq/L 02/18/2016 Comp Metabolic Szq644 K 4.5 mEq/L 02/18/2016 Comp Metabolic Gxs131 CL 104 mEq/L 02/18/2016 Comp Metabolic Rvz353 CO2 26.0 mEq/L 02/18/2016 Comp Metabolic Gyk619 ANION GAP 13 02/18/2016 Comp Metabolic Mdw125 GLUCOSE 88 mg/dL 02/18/2016 Comp Metabolic Mka480 Creat 0.9 mg/dL 02/18/2016 Comp Metabolic Amb831 eGFR 69 ml/min/1.73m2 02/18/2016 Comp Metabolic Lqq876 BUN 14 mg/dL 02/18/2016 Comp Metabolic Vmz595 B/C Ratio 16.1 Ratio 02/18/2016 Comp Metabolic Nox261 CALCIUM 9.4 mg/dL 02/18/2016 Comp Metabolic Vnf547 ALK PHOS 95 U/L 02/18/2016 Comp Metabolic Tdp326 AST(SGOT) 19 U/L 02/18/2016 Comp Metabolic Hzs782 ALT(SGPT) 18 U/L 02/18/2016 Comp Metabolic Geg913 BILI T 0.7 mg/dL 02/18/2016 Comp Metabolic Ilj604 ALBUMIN 4.4 g/dL 02/18/2016 Comp Metabolic Cmw378 TPRO 6.9 g/dL 02/18/2016 Comp Metabolic Gug089 GLOB 2.5 g/dL 02/18/2016 Comp Metabolic Hru938 A/G Ratio 1.7 Ratio 02/18/2016 Comp Metabolic Zrf743 Osmo 276 mOsmo 02/18/2016 Lipid Ord30 CHOL [...] 18.8 % 02/18/2016 Cbc With Differential Ord2 [place]% 10.5 % 02/18/2016 Cbc With Differential Ord2 [...] 1.08 K/ul 02/18/2016 Cbc With Differential Ord2 [place] ABS# 0.6 K/ul 02/18/2016 Cbc With Differential Ord2 Eos ABS# 0.0 K/ul 02/18/2016 Cbc With Differential Ord2 Baso ABS# 0.0 K/ul 02/18/2016 Comp Metabolic Rcw999 NA 136 mEq/L 06/08/2015 Comp Metabolic Xen513 K 3.9 mEq/L 06/08/2015 Comp Metabolic Alw144 CL 103 mEq/L 06/08/2015 Comp Metabolic Wya181 CO2 25.0 mEq/L 06/08/2015 Comp Metabolic Nsy961 ANION GAP 12 06/08/2015 Comp Metabolic Hvy396 GLUCOSE 91 mg/dL 06/08/2015 Comp Metabolic Pjb175 Creat 0.9 mg/dL 06/08/2015 Comp Metabolic Agq122 eGFR 68 ml/min/1.73m2 06/08/2015 Comp Metabolic Aft850 BUN 10 mg/dL 06/08/2015 Comp Metabolic Rps314 B/C Ratio 11.4 Ratio 06/08/2015 Comp Metabolic Qhw081 CALCIUM 9.4 mg/dL 06/08/2015 Comp Metabolic Lrb937 ALK PHOS 88 U/L 06/08/2015 Comp Metabolic Chq180 AST(SGOT) 20 U/L 06/08/2015 Comp Metabolic Rfb003 ALT(SGPT) 18 U/L 06/08/2015 Comp Metabolic Nic185 BILI T 0.8 mg/dL 06/08/2015 Comp Metabolic Zuy295 ALBUMIN 4.4 g/dL 06/08/2015 Comp Metabolic Pyx964 TPRO 7.0 g/dL 06/08/2015 Comp Metabolic Fyy064 GLOB 2.6 g/dL 06/08/2015 Comp Metabolic Pbq004 A/G Ratio 1.7 Ratio 06/08/2015 Comp Metabolic Swe217 Osmo 271 mOsmo 06/08/2015 Tsh Ord6 hTSH [...] Ord2 RDW 14.4 % 06/08/2015 LYME EIA 0525031 LYME EIA 0.24 04/25/2014 TULAREM AB [id number] TULAREM AB <1:20 04/24/2014 RMSF IFA [id number] IGG RMSF <1:16 04/24/2014 RMSF IFA 8906835 IGM RMSF <1:10 04/24/2014 E CHAFF AB [id number] IGG E CHFF <1:16 04/24/2014 E CHAFF AB [id number] IGM E CHFF <1:10 04/24/2014 ICT OCCULT [id number] ICT OCCULT NEG 10/11/2013 Review of Systems System Result Effective Dates Constitutional recent illness 09/11/2018 Constitutional chills 09/11/2018 [...] clear 11/05/2013 None Full Exam - General 1995 Ears/Nose/Throat [...] clear 10/04/2012 None Full Exam - General 1994 [...] Date TRIAMCINOLONE ACET INJ NOS CPT-4: J3301 09/11/2018 URINALYSIS NONAUTO W/O SCOPE CPT-4: 32671 05/07/2018 ADMIN INFLUENZA VIRUS VAC CPT-4: G0008 04/24/2018 FLU VACC PRSV FREE INC ANTIG CPT-4: 52314 04/24/2018 PPPS, SUBSEQ VISIT CPT- 4: G0439 11/28/2017 ADMIN INFLUENZA VIRUS VAC CPT-4: G0008 06/07/2017 FLU VACC PRSV FREE INC ANTIG CPT-4: 30403 06/07/2017 PPPS, SUBSEQ VISIT CPT- 4: G0439 11/17/2016 TRIAMCINOLONE ACET INJ NOS CPT-4: J3301 09/05/2016 PPPS, SUBSEQ VISIT CPT- 4: G0439 11/13/2015 PNEUMOCOCCAL VACC 13 STEPHANIE IM Formatting Model/CDA Sections, Assigned to/Lila Colon SNOMED CT: 60826562 CPT-4: 70558Hmpeqsg 11/13/2015 ADMIN PNEUMOCOCCAL VACCINE SNOMED CT: 32600134 CPT-4: G0009 11/13/2015 ROCEPHIN, PER 250 MG CPT- 4: J0696 07/23/2015 URINALYSIS NONAUTO W/O SCOPE CPT-4: 51328 10/10/2014 ROUTINE VENIPUNCTURE CPT- 4: 62535 04/23/2014 Pneumococcal Polysaccharide Vaccine, 23-Valent, Ad CPT-4: 88256 04/15/2014 ADMIN INFLUENZA VIRUS VAC CPT-4: G0008 04/15/2014 FLU VAC NO PRSV 4 STEPHANIE 3 YRS+ CPT-4: 54980 04/15/2014 ADMIN [address]OCOCCAL VACCINE SNOMED CT: 30402455 CPT-4: G0009 04/15/2014 THER/PROPH/DIAG INJ SC/IM CPT-4: 88287 02/11/2014 TRIAMCINOLONE ACET INJ NOS CPT-4: J3301 02/11/2014 TRIAMCINOLONE ACET INJ NOS CPT-4: J3301 01/21/2014 INITIAL PREVENTIVE EXAM CPT-4: G0402 09/30/2013 PRESCRIP TRANSMIT VIA ERX SY CPT-4: G8553 03/13/2013 Vital Signs Date Vital 09/11/2018 Blood Pressure 1: 114/76 Code: 8480-6 BMI: 29.3 Code: 86309-6 Heart Rate 1: 80 bpm Height: 5'5" SpO2: 95% Temperature: 36.3 (C) / 97.3 (F) Weight: 176 lbs 07/12/2018 Blood Pressure 1: 126/76 Code: 8480-6 BMI: 29.3 Code: 19025-8 Heart Rate 1: 70 bpm Height: 5'5" SpO2: 96% Weight: 176 lbs 05/07/2018 Blood Pressure 1: 118/72 Code: 8480-6 BMI: 29.5 Code: 55435-1 Heart Rate 1: 71 bpm Height: 5'5" SpO2: 98% Weight: 177 lbs 02/21/2018 Blood Pressure 1: 120/78 Code: 8480-6 BMI: 29.0 Code: 28800-2 Heart Rate 1: 68 bpm Height: 5'5" SpO2: 96% Weight: 174 lbs 11/28/2017 Blood Pressure 1: 122/98 Code: 8480-6 BMI: 31.0 Code: 32958-3 Heart Rate 1: 89 bpm Height: 5'5" SpO2: 98% Waist Measure (cm): 91 cm Weight: 186 lbs 08/29/2017 Blood Pressure 1: 146/80 Code: 8480-6 BMI: 29.5 Code: 30307-5 Heart Rate 1: 68 bpm Height: 5'5" SpO2: 98% Temperature: 36.6 (C) / 97.8 (F) Weight: 177 lbs 06/13/2017 Blood Pressure 1: 138/76 Code: 8480-6 BMI: 29.6 Code: 65033-8 Heart Rate 1: 63 bpm Height: 5'5" SpO2: 95% Weight: 178 lbs 02/16/2017 Blood Pressure 1: 128/80 Code: 8480-6 BMI: 29.9 Code: 02252-8 Heart Rate 1: 77 bpm Height: 5'5" SpO2: 96% Weight: 179 lbs 8 oz 02/06/2017 Blood Pressure 1: 140/80 Code: 8480-6 BMI: 29.8 Code: 51081-3 Heart Rate 1: 72 bpm Height: 5'5" SpO2: 97% Weight: 179 lbs 11/17/2016 Blood Pressure 1: 130/72 Code: 8480-6 BMI: 29.6 Code: 58708-7 Heart Rate 1: 62 bpm Height: 5'5" SpO2: 98% Waist Measure (cm): 91 cm Weight: 178 lbs 10/12/2016 Blood Pressure 1: 128/78 Code: 8480-6 BMI: 28.5 Code: 68534-5 Heart Rate 1: 62 bpm Height: 5'5" SpO2: 97% Weight: 171 lbs 09/05/2016 Blood Pressure 1: 122/70 Code: 8480-6 BMI: 28.0 Code: 54950-5 Heart Rate 1: 65 bpm Height: 5'5" SpO2: 94% Weight: 168 lbs 06/21/2016 Blood Pressure 1: 120/82 Code: 8480-6 BMI: 28.3 Code: 50250-3 Heart Rate 1: 65 bpm Height: 5'5" SpO2: 97% Weight: 170 lbs 05/24/2016 Blood Pressure 1: 136/80 Code: 8480-6 BMI: 28.1 Code: 49283-1 Heart Rate 1: 71 bpm Height: 5'5" SpO2: 96% Weight: 169 lbs 05/10/2016 Blood Pressure 1: 120/82 Code: 8480-6 BMI: 27.6 Code: 28944-4 Heart Rate 1: 86 bpm Height: 5'5" SpO2: 95% Weight: 166 lbs 05/03/2016 Blood Pressure 1: 124/78 Code: 8480-6 BMI: 28.1 Code: 47419-4 Heart Rate 1: 88 bpm Height: 5'5" SpO2: 97% Weight: 169 lbs 11/13/2015 Blood Pressure 1: 130/60 Code: 8480-6 BMI: 30.0 Code: 18687-8 Heart Rate 1: 7 bpm Height: 5'5" Waist Measure (cm): 97 cm Weight: 180 lbs 07/23/2015 Blood Pressure 1: 124/70 Code: 8480-6 BMI: 29.6 Code: 32879-4 Heart Rate 1: 74 bpm Height: 5'5" SpO2: 96% Temperature: 36.7 (C) / 98.1 (F) Weight: 178 lbs 07/06/2015 Blood Pressure 1: 138/78 Code: 8480-6 BMI: 29.6 Code: 68358-6 Heart Rate 1: 84 bpm Height: 5'5" SpO2: 96% Weight: 178 lbs 05/26/2015 Blood Pressure 1: 122/80 Code: 8480-6 BMI: 29.6 Code: 35346-1 Heart Rate 1: 84 bpm Height: 5'5" Weight: 178 lbs 02/16/2015 Blood Pressure 1: 124/82 Code: 8480-6 BMI: 29.0 Code: 16433-8 Heart Rate 1: 68 bpm Height: 5'5" Weight: 174 lbs 12/10/2014 Blood Pressure 1: 112/64 Code: 8480-6 BMI: 28.6 Code: 82250-6 Heart Rate 1: 80 bpm Height: 5'5" Weight: 172 lbs 10/16/2014 Blood Pressure 1: 128/84 Code: 8480-6 Heart Rate 1: 64 bpm Weight: 172 lbs 10/09/2014 Blood Pressure 1: 136/90 Code: 8480-6 BMI: 28.6 Code: 54188-4 Heart Rate 1: 76 bpm Height: 5'5" Weight: 172 lbs 08/26/2014 Blood Pressure 1: 118/72 Code: 8480-6 BMI: 29.0 Code: 05121-5 Heart Rate 1: 76 bpm Height: 5'5" Weight: 174 lbs 05/16/2014 Blood Pressure 1: 110/72 Code: 8480-6 BMI: 29.0 Code: 53631-0 Height: 5'5" Weight: 174 lbs 04/23/2014 Blood Pressure 1: 124/70 Code: 8480-6 BMI: 29.0 Code: 52385-0 Heart Rate 1: 72 bpm Height: 5'5" Weight: 174 lbs 04/15/2014 Temperature: 36.5 (C) / 97.7 (F) 01/21/2014 Blood Pressure 1: 98/62 Code: 8480-6 BMI: 29.0 Code: 57414- 5 Heart Rate 1: 84 bpm Height: 5'5" Temperature: 37.1 (C) / 98.7 (F) Weight: 174 lbs 12/05/2013 Blood Pressure 1: 138/88 Code: 8480-6 BMI: 29.0 Code: 50626-4 Heart Rate 1: 60 bpm Height: 5'5" Weight: 174 lbs 11/05/2013 Blood Pressure 1: 118/80 Code: 8480-6 BMI: 28.8 Code: 86659-1 Heart Rate 1: 76 bpm Height: 5'5" Weight: 173 lbs 10/15/2013 Blood Pressure 1: 120/78 Code: 8480-6 BMI: 29.1 Code: 43014-4 Heart Rate 1: 88 bpm Height: 5'5" Weight: 175 lbs 09/30/2013 Blood Pressure 1: 112/84 Code: 8480-6 BMI: 29.1 Code: 36401-7 Heart Rate 1: 68 bpm Height: 5'5" Weight: 175 lbs 03/13/2013 Blood Pressure 1: 112/84 Code: 8480-6 BMI: 28.6 Code: 31394-6 Heart Rate 1: 64 bpm Height: 5'5" Weight: 173 lbs 10/04/2012 Blood Pressure 1: 120/72 Code: 8480-6 BMI: 28.0 Code: 29789-2 Heart Rate 1: 64 bpm Height: 5'5" Weight: 169 lbs 08/22/2011 Blood Pressure 1: 134/84 Code: 8480-6 BMI: 27.5 Code: 33288-5 Heart Rate 1: 68 bpm Height: 5'5" Respiratory Rate: 16 bpm Weight: 166 lbs 8 oz 06/17/2011 Blood Pressure 1: 120/76 Code: 8480-6 BMI: 27.0 Code: 28138-1 Heart Rate 1: 58 bpm Height: 5'5" Respiratory Rate: 16 bpm Weight: 163 lbs Functional Status No Functional Status data History of Present Illness Symptom Name Status Result Effective Date Notes Quality acute 09/11/2018 None Quality intermittent 09/11/2018 [...] data Encounters Encounter Performer Location Codes Date ([id number] EST. PATIENT, LEVEL III Diagnosis: Cough[ICD10: R05] Diagnosis: Acute recurrent maxillary sinusitis[ICD10: J01.01] Suma Alvarado MD, [facility] CPT-4: 00652 09/11/2018 [id number] EST. PATIENT, LEVEL III Diagnosis: Pain in right hand[ICD10: M79.641] Gina Alvarado MD, [facility] CPT-4: 42144 07/12/2018 ([id number]) 59847 EST. PATIENT, LEVEL II Diagnosis: Dysuria[ICD10: R30.0] Suma Alvarado MD, [facility] CPT-4: 12921 05/07/2018 04987 EST. PATIENT, LEVEL IV Diagnosis: Tinnitus, bilateral[ICD10: H93.13] Diagnosis: Other allergic rhinitis[ICD10: J30.89] Gina Alvarado MD, [facility] CPT- 4: 22429 02/21/2018 75493 EST. PATIENT, LEVEL III Diagnosis: Acute laryngopharyngitis[ICD10: J06.0] Diagnosis: Other allergic rhinitis[ICD10: J30.89] Gina Alvarado MD, [facility] CPT- 4: 82876 08/29/2017 ([id number]) 92639 EST. PATIENT, LEVEL IV Diagnosis: Postprocedural hypothyroidism[ICD10: E89.0] Diagnosis: Major depressive disorder, recurrent, moderate[ICD10: F33.1] Diagnosis: Generalized anxiety disorder[ICD10: F41.1] Elina Alvarado MD, [facility] CPT-4: 05513 06/13/2017 ([id number]) 60437 EST. PATIENT, LEVEL IV Diagnosis: Pelvic and perineal pain[ICD10: R10.2] Diagnosis: Acute vaginitis[ICD10: N76.0] Suma Alvarado MD, [facility] CPT-4: 89429 02/16/2017 ([id number]) 02296 EST. PATIENT, LEVEL III Diagnosis: Postprocedural hypothyroidism[ICD10: E89.0] Diagnosis: Major depressive disorder, recurrent, moderate[ICD10: F33.1] Elina Alvarado MD, [facility] CPT-4: 51109 02/06/2017 ([id number]) 96375 EST. PATIENT, LEVEL III Diagnosis: Generalized anxiety disorder[ICD10: F41.1] Elina Alvarado MD, [facility] CPT-4: 14928 10/12/2016 ([id number]) 47120 EST. PATIENT, LEVEL III Diagnosis: Cough[ICD10: R05] Diagnosis: Acute upper respiratory infection, unspecified[ICD10: J06.9] Suma Alvarado MD, [facility] CPT-4: 34068 09/05/2016 ([id number]) 97600 EST. PATIENT, LEVEL III Diagnosis: Generalized anxiety disorder[ICD10: F41.1] Diagnosis: Major depressive disorder, recurrent, moderate[ICD10: F33.1] Diagnosis: Postprocedural hypothyroidism[ICD10: E89.0] Elina Alvarado MD, [facility] CPT-4: 73403 06/21/2016 ([id number]) 74856 EST. PATIENT, LEVEL III Diagnosis: Major depressive disorder, recurrent, moderate[ICD10: F33.1] Elina Alvarado MD, [facility] CPT-4: 62717 05/24/2016 ([id number]) 25064 EST. PATIENT, LEVEL III Diagnosis: Major depressive disorder, recurrent, moderate[ICD10: F33.1] Elina Alvarado MD, [facility] CPT-4: 39274 05/10/2016 ([id number]) 13792 EST. PATIENT, LEVEL III Diagnosis: Generalized anxiety disorder[ICD10: F41.1] Diagnosis: Major depressive disorder, recurrent, moderate[ICD10: F33.1] Suma Alvarado MD, [facility] CPT-4: 88269 05/03/2016 ([id number]) 97414 EST. PATIENT, LEVEL III Diagnosis: Cough[ICD10: R05] Diagnosis: Acute upper respiratory infection, unspecified[ICD10: J06.9] Suma Alvarado MD, [facility] CPT-4: 09423 07/23/2015 ([id number]) 85350 EST. PATIENT, LEVEL III Diagnosis: Hypothyroidism, unspecified[ICD10: E03.9] Diagnosis: Generalized anxiety disorder[ICD10: F41.1] Diagnosis: Other depressive episodes[ICD10: F32.8] Elina Alvarado MD, [facility] CPT-4: 84321 07/06/2015 ([id number]) 44319 EST. PATIENT, LEVEL IV Diagnosis: Generalized anxiety disorder[ICD10: F41.1] Diagnosis: Major depressive disorder, recurrent, unspecified[ICD10: F33.9] Elina Alvarado MD, [facility] CPT-4: 47230 05/26/2015 ([id number]) 61509 EST. PATIENT, LEVEL II Diagnosis: 2Nd degree burn of multiple fingers of right hand not including thumb[ICD9: 944.23] Suma Alvarado MD, [facility] CPT-4: 38416 02/16/2015 ([id number]) 12914 EST. PATIENT, LEVEL IV Diagnosis: Hammertoe[ICD9: 735.4] Diagnosis: Foot pain[ICD9: 729.5] Diagnosis: HYPOTHYROIDISM[ICD9: 244.9] Elina Alvarado MD, [facility] CPT-4: 01416 12/10/2014 ([id number]) 78454 EST. PATIENT, LEVEL III Diagnosis: Urinary incontinence[ICD9: 788.30] Diagnosis: Pelvic pain in female[ICD9: 625.9] Elina Alvarado MD, [facility] CPT- 4: 69696 10/16/2014 ([id number]) 52611 EST. PATIENT, LEVEL III Diagnosis: Urinary incontinence[ICD9: 788.30] Diagnosis: Pelvic pain in female[ICD9: 625.9] Suma Alvarado MD, [facility] CPT- 4: 48907 10/09/2014 ([id number]) 09774 EST. PATIENT, LEVEL III Diagnosis: HYPOTHYROIDISM[ICD9: 244.9] Elina Alvarado MD, [facility] CPT-4: 62838 08/26/2014 ([id number]) 46202 EST. PATIENT, LEVEL III Diagnosis: Neck pain[ICD9: 723.1] Diagnosis: Muscle tension headache[ICD9: 307.81] Suma Alvarado MD, [facility] CPT-4: 79683 05/16/2014 ([id number]) 71584 EST. PATIENT, LEVEL IV Diagnosis: Arthropod bite[ICD9: 919.4] Diagnosis: Poison diana dermatitis[ICD9: 692.6] Diagnosis: Arthralgia[ICD9: 719.40] Diagnosis: Myalgia[ICD9: 729.1] Elina Alvarado MD, [facility] CPT-4: 49169 04/23/2014 ([id number]) 23931 EST. PATIENT, LEVEL III Diagnosis: ACUTE URI[ICD9: 465.9] Diagnosis: COUGH[ICD9: 786.2] Suma Alvarado MD, [facility] CPT-4: 65935 01/21/2014 ([id number]) 36162 EST. PATIENT, LEVEL III Diagnosis: HYPOTHYROIDISM[ICD9: 244.9] Diagnosis: GENERALIZED ANXIETY DISEASE[ICD9: 300.02] Elina Alvarado MD, [facility] CPT-4: 45384 12/05/2013 ([id number]) 05442 EST. PATIENT, LEVEL III Diagnosis: GENERALIZED ANXIETY DISEASE[ICD9: 300.02] Diagnosis: DEPRESSIVE DISORDER NEC[ICD9: 311] Elina Alvarado MD, [facility] CPT- 4: 70358 11/05/2013 ([id number]) 96419 EST. PATIENT, LEVEL III Diagnosis: HYPOTHYROIDISM[ICD9: 244.9] Elina Alvarado MD, [facility] CPT-4: 07650 10/15/2013 ([id number]) Miscellaneous no charge Diagnosis: Colon cancer screening[ICD9: V76.51] Elina Alvarado MD, [facility] CPT- 4: 46392 10/10/2013 ([id number]) 01697 EST. PATIENT, LEVEL IV Diagnosis: HYPOTHYROIDISM[ICD9: 244.9] Diagnosis: DEPRESSIVE DISORDER NEC[ICD9: 311] Diagnosis: GENERALIZED ANXIETY DISEASE[ICD9: 300.02] Diagnosis: HYPERLIPIDEMIA[ICD9: 272.4] Elina Alvarado MD, [facility] CPT-4: 95832 03/13/2013 ([id number]) 66443 EST. PATIENT, LEVEL IV Diagnosis: HYPERLIPIDEMIA[ICD9: 272.4] Diagnosis: HYPOTHYROIDISM[ICD9: 244.9] Diagnosis: GENERALIZED ANXIETY DISEASE[ICD9: 300.02] Diagnosis: DEPRESSIVE DISORDER NEC[ICD9: 311] [facility] CPT- 4: 81209 10/04/2012 ([id number]) 98772 EST. PATIENT, LEVEL III Diagnosis: VICTOR HUGO (generalized anxiety disorder)[ICD9: 300.02] Diagnosis: Chronic depression[ICD9: 311] [facility] CPT-4: 26495 08/22/2011 56250 EST. PATIENT, LEVEL IV Diagnosis: CHEST PAIN NEC[ICD9: 786.59] Diagnosis: HYPERLIPIDEMIA[ICD9: 272.4] Diagnosis: POSTSURGICAL HYPOTHYROIDISM[ICD9: 244.0] [facility] CPT-4: 87381 06/17/2011 Plan of Care Planned Activity Notes Codes Status Date Visit Plan: Sinusitis - Pt has acute infection - pain in face, maxillary region, Pt informed to use decongestant, RX given to patient, sinus rinses also recommended. Call if symptoms do not show improvement. 09/11/2018 Appointment: Suma Choi WPtel: [facility]5 [phone] (15 min) Moderate 09/11/2018 Patient Education: Patient Medication Summary Completed 09/11/2018 Visit Plan: Right hand pain - ongoing - will send for x-ray - The pt is to use prn antiinflammatories to manage acute pain. The patient is to call the office if the pain is worsening or does not improve. 07/12/2018 Appointment: Gina Kern WPtel[facility] (15 min) Moderate 07/12/2018 Patient Education: Patient Medication Summary Completed 07/12/2018 Care Plan: X-RAY EXAM OF HAND LOINC : 86575-3 Pending 07/12/2018 Visit Plan: Dysuria- UA negative -symptoms resolved -instructed patient to continue with adequate fluid intake and call if symptoms return. Patient verbalized understanding of plan. 05/07/2018 Appointment: Suma Choi WPtel: [phone] [place] (15 min) Moderate 05/07/2018 Patient Education: Patient Medication Summary Completed 05/07/2018 Appointment: Injection 04/24/2018 Patient Education: Patient Medication Summary Completed 04/24/2018 Referral: Peter Rubio [facility] Referral Completed 03/22/2018 Visit Plan: Allergies [...] hearing testing 02/21/2018 Appointment: Gina Kern WPtel: [address] [place], [place] [phone] (15 min) Moderate 02/21/2018 Patient Education: Patient Medication Summary Completed 02/21/2018 Care Plan: Referral Order SNOMED-CT : [id number] Pending 02/21/2018 Appointment: Elina Alvarado WPtel: [address] [place], [place] [phone] (15 min) Moderate 12/14/2017 Visit Plan: Medicare [...] Summary Completed 11/28/2017 Appointment: Gina Kern WPtel: [facility] [facility] - Annual Wellness Visit 11/21/2017 Visit [...] allergy spray. 08/29/2017 Appointment: Gina Kern WPtel: [phone] [facility] (15 min) Moderate 08/29/2017 Patient Education: Patient [...] with counseling. 06/13/2017 Appointment: [phone] (15 min) Moderate 06/13/2017 Patient Education: Patient Medication Summary Completed 06/13/2017 Appointment: Injection 06/07/2017 Patient Education: Patient Medication Summary Completed 06/07/2017 Visit Plan: Pelvic pain-UA negative-pap done today in the office- will start patient on flagyl for bacterial vaginosis-instructed patient to call if symptoms do not resolve or if any worse. Patient verbalized understanding of plan. 02/16/2017 Appointment: Sum[facility]el[phone] (30 min) Complex 02/16/2017 Patient [...] medications. 02/06/2017 Appointment: Elina Alvarado WPtel: [phone] [facility] (15 min) Moderate 02/06/2017 Patient Education: Patient [...] care surrogate. 11/17/2016 Appointment: Gina Kern WPtel: [phone] [facility] [facility] - Annual Wellness Visit 11/17/2016 Patient [...] current medications. 10/12/2016 Appointment: Elina Alvarado WPtel: [address] [facility] (15 min) Moderate 10/12/2016 Patient Education: [...] J06.9 09/05/2016 Appointment: Suma Choi WPtel: [phone] [phone] [place] (10 min) Simple 09/05/2016 Patient Education: [...] with lexapro 06/21/2016 Appointment: Elina Alvarado WPtel: [facility] (15 min) Moderate 06/21/2016 Patient Education: Patient Medication Summary Completed 06/21/2016 Visit Plan: Depression - improved with lexapro - continue with current treatment and counseling. 05/24/2016 Appointment: Elina Alvarado WPtel: [phone] [facility] (15 min) Moderate 05/24/2016 Patient Education: Patient Medication Summary Completed 05/24/2016 Visit Plan: Depression - improved on the Lexapro - stop ativan - start on xanax 05/10/2016 Appointment: [place] Elina WPtel: [phone] [facility] (15 min) Moderate 05/10/2016 Patient Education: [...] Completed 05/03/2016 Appointment: Suma Choi WPtel: [phone] [phone] (15 min) Moderate 02/26/2016 Visit Plan: Medicare [...] and to maintain independece in the home. Xfdkeuadfc-uuvbxfoojxhw-spzazj to wellbutrin Pneumonia 13 administered today in [...] and to maintain independece in the home. Flljtmfumm-vuszlamkqfcn-zchzog to wellbutrin Pneumonia 13 administered today in the office 11/13/2015 Appointment: [facility] - Annual Wellness Visit 11/13/2015 Patient Education: Patient Medication Summary Completed 11/13/2015 Patient Education: Obesity Completed 11/13/2015 Care Plan: SCREENINGMAMMOGRAPHYDIGITAL LOINC : 44352-2 Ordered 11/13/2015 Appointment: Lab Draw 08/10/2015 Visit [...] current medications. 07/06/2015 Appointment: Elina Alvarado WPtel: [address] [place], [place] [address] (30 min) [facility] 07/06/2015 Patient Education: Patient Medication Summary Completed [...] upon discharge. 12/10/2014 Appointment: Elina Alvarado WPtel: [facility] Surgical Clearance 12/10/2014 Patient Education: Patient Medication Summary Completed 12/10/2014 Visit Plan: Urinary incontinence and Pelvic discomfort - recommended pt to have evaluation by Dr. Brandt - pt agreeable to referral. Pt is to call if abdominal pain does not improve. 10/16/2014 Appointment: Elina Alvarado WPtel: [facility] Follow up 10/16/2014 Patient Education: Patient Medication Summary Completed 10/16/2014 Care Plan: Referral Order SNOMED-CT : [id number] Ordered 10/16/2014 Patient Education: Patient Medication Summary Completed 10/10/2014 Visit Plan: Pelvic pain-history of mesh implant-recommend CT abd/pelvis to evaluate for any abnormality-refer to Dr Woods if pain does not improve Urinary incontinence-check UA with C&S if indicated 10/09/2014 Patient Education: Patient Medication Summary Completed 10/09/2014 Care Plan: CT ABD & PELV 1/> REGNS LOINC : 65732-4 Ordered 10/09/2014 Visit Plan: Hypothyroidism - pt with chronic hypothyroidism, continue with current medication, will monitor pt to signs or symptoms of lack of adequate supplementation. Pt is to continue with current dose of medication unless directed otherwise. Check labs at regular intervals wither q 3 months or q 6 months based on previous levels of control. 08/26/2014 Appointment: Elina Alvarado WPtel: [facility] [facility] 08/26/2014 Patient Education: Patient [...] with screening. 04/23/2014 Appointment: Elina Alvarado WPtel: [facility] S[facility] 04/23/2014 Patient Education: Patient Medication Summary Completed 04/23/2014 Care Plan: Referral Order SNOMED-CT : [id number] Ordered 04/23/2014 Appointment: Nurse Visit 04/15/2014 Patient Education: Patient Medication Summary Completed 04/15/2014 Appointment: Elina Alvarado WPtel: [facility] [place] Injection 02/11/2014 Patient Education: Patient [...] current treatment. 12/05/2013 Appointment: Elina Alvarado WPtel: [facility] [place] Follow up 12/05/2013 Patient Education: Patient Medication [...] medications. 11/05/2013 Appointment: Elina Alvarado WPtel: [phone] [facility] Follow up 11/05/2013 Patient Education: Patient [...] of control. 10/15/2013 Appointment: Elina Alvarado WPtel: [facility] [facility] 10/15/2013 Patient Education: Patient [...] care surrogate. 09/30/2013 Appointment: Elina Alvarado WPtel: [facility] [facility] - Initial Preventive Physical Exam 09/30/2013 Patient Education: Patient Medication Summary Completed 09/30/2013 [place] [phone] [facility] [facility] - Initial Preventive Physical Exam 09/11/2013 [...] use. 03/13/2013 Appointment: [phone] [facility] Follow [facility] 03/13/2013 Patient Education: Patient [...] current medications. 10/04/2012 Appointment: Elina Alvarado WPtel: [address] [place] [address] Follow up 10/04/2012 Patient Education: Patient Medication [...] anxiety attacks. 08/22/2011 Appointment: Elina Alvarado WPtel: [address] [place] [address] [place] Other 08/22/2011 Patient Education: Patient Medication [...] THYROID ULTRASOUND 06/17/2011 Appointment: Elina Alvarado WPtel: [address] [place] [address] Other 06/17/2011 Patient Education: Patient Medication Summary Completed 06/17/2011 Referral: Raimundo Brandt WPtel: Referral Appointment Requested Referral: Peter Rubio [address] Referral Initiated Referral: Dr. Phelps WPtel: Referral Initiated Instructions Comment . URI - Pt advised to increase [...] benefits of treatment with the above medications. ROCEPHIN INJECTION TODAY IN THE OFFICE, START [...] stop ativan - start on xanax . Medicare Exam - today we discussed [...] based on previous levels of control. . Sinusitis - Pt has acute infection [...] and to maintain independece in the home. Sqmnoequaz-mnzcckahjxwc-mfxxgb to wellbutrin Pneumonia 13 administered today in [...] and to maintain independece in the home. Ugyreytbhw-whncbfvvswyf-laiosy to wellbutrin Pneumonia 13 administered today in [...] of treament with the above medications. . Depression - improved with lexapro - [...] medications. Symptoms stable, continue with counseling. . Hypothyroidism - pt with chronic hypothyroidism, continue with current medication, will monitor pt to signs or symptoms of lack of adequate supplementation. Pt is to continue with current dose of medication unless directed otherwise. Check labs at regular intervals wither q 3 months or q 6 months based on previous levels of control. schedule well woman . Medicare Exam - [...] incontinence-check UA with C&S if indicated . Kathy - Foot pain - pt [...] if painful urination persists Flagyl -sent to [facility] if symptoms do not resolve completely [...]
--- OUTSIDE RECORDS SUMMARY | 2018-12-27 09:40 | XMS REPORT | CCD ---
Author Author [facility] Organization [facility] Address [address] [place] [address] Phone Care Team Providers Care Delivery Analyst Name Role Phone PP Unavailable CCM Unavailable Summary Purpose Interface Exchange Insurance Providers Payer name Policy type / Coverage type Covered republican ID Effective Begin Date Effective End Date WPS Medicare Part B [id number] 2018 Unknown [facility] [id number] 2018 Unknown Family history Sister Diagnosis Age [...] Description Effective Dates Tobacco history SNOMED CT: 2184679 Former smoker quit 2 years ago, social smoker, 1 pack per month 200709/30/2013 Employment Unknown 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 Marital status Unknown 06/17/[address]: 128824 Currently drinks alcohol 2 beers/week 06/17/2011 Has [...] 02/16/2017 Unknown Pelvic and perineal pain ICD-9: [id number] ICD-10: R10.2 Active 02/16/2017 Unknown Hypothyroidism, unspecified [...] 02/16/2017 Active Pelvic and perineal pain ICD-9: [id number] ICD-10: R10.2 02/16/2017 Active Hypothyroidism, unspecified ICD-9: [...] Start Date Stop Date Status Fill Instructions Kenalog 40 mg/mL suspension for injection RxNorm: 7400232 1 Milliliter(s) Inj 09/11/2018 09/11/2018 Inactive Augmentin 875 mg-125 mg tablet RxNorm: 810068 1 Tablet(s) PO BID 09/11/2018 09/17/2018 Inactive naproxen 500 mg tablet RxNorm: 596324 1 Tablet(s) PO BID 07/12/2018 07/16/2018 Inactive Synthroid 112 mcg tablet RxNorm: 118640 TAKE ONE TABLET BY MOUTH DAILY 07/02/2018 12/28/2018 Active Lipitor 10 mg tablet RxNorm: 584157 TAKE ONE TABLET BY MOUTH EVERY DAY 06/06/2018 05/31/2019 Active Lexapro 20 mg tablet RxNorm: 672184 TAKE ONE TABLET BY MOUTH DAILY 05/08/2018 12/03/2018 Active Synthroid 100 mcg tablet RxNorm: 197937 TAKE ONE TABLET BY MOUTH EVERY OTHER DAY 04/10/2018 10/06/2018 Active Synthroid 100 mcg tablet RxNorm: 939328 1 Tablet(s) PO every other day 12/11/2017 04/09/2018 Inactive QOD -alternate with 112mcg DISPENSE BRAND NAME Synthroid 112 mcg tablet RxNorm: 052695 1 Tablet(s) every other day 11/28/2017 03/27/2018 Inactive QOD alternate with 100mcg Synthroid 100 mcg tablet RxNorm: 401257 1 Tablet(s) PO every other day 11/28/2017 12/10/2017 Inactive QOD -alternate with 112mcg DISPENSE BRAND NAME Synthroid 100 mcg tablet RxNorm: 227875 1 Tablet(s) PO every other day 11/28/2017 11/27/2017 Inactive QOD -alternate with 112mcg Xanax 0.5 mg tablet RxNorm: 708784 1 Tablet(s) PO QID as needed anxiety 11/14/2017 01/12/2018 Inactive Lexapro 20 mg tablet RxNorm: 516246 TAKE ONE TABLET BY MOUTH DAILY 11/13/2017 05/07/2018 Inactive Xanax 0.5 mg tablet RxNorm: 245301 1 Tablet(s) PO QID as needed anxiety 09/11/2017 11/08/2017 Inactive Tamiflu 75 mg capsule RxNorm: 708497 1 Capsule(s) PO BID 08/29/2017 09/02/2017 Inactive Synthroid 112 mcg tablet RxNorm: 358927 1 Tablet(s) daily 08/14/2017 11/27/2017 Inactive fyi - medication changed, refill x 6 - #30 pills Synthroid 112 mcg tablet RxNorm: 108489 1 Tablet(s) daily 06/13/2017 08/13/2017 Inactive fyi - medication changed, refill x 6 - #30 pills Lexapro 20 mg tablet RxNorm: 869791 TAKE ONE TABLET BY MOUTH DAILY 06/09/2017 11/05/2017 Inactive Synthroid 112 mcg tablet RxNorm: 645776 TAKE 1 TABLET BY MOUTH DAILY EXCEPT TAKE 1/2 TABLET ON MONDAY, MONDAY, AND Monday05/22/2017 06/12/2017 Inactive Lipitor 10 mg tablet RxNorm: 861425 TAKE ONE TABLET BY MOUTH EVERY DAY 03/08/2017 05/31/2018 Inactive Flagyl 500 mg tablet RxNorm: 770782 1 Tablet(s) PO TID 02/16/2017 02/22/2017 Inactive Xanax 0.5 mg tablet RxNorm: 804828 1 Tablet(s) PO QID as needed anxiety 12/23/2016 03/21/2017 Inactive Synthroid 112 mcg tablet RxNorm: 660025 TAKE 1 TABLET BY MOUTH DAILY EXCEPT FOR TAKE 1/2 TABLET ON MONDAY, MONDAY, AND Monday12/23/2016 04/13/2017 Inactive Lexapro 20 mg tablet RxNorm: 653496 TAKE ONE TABLET BY MOUTH DAILY 11/29/2016 05/27/2017 Inactive Zithromax Z-Que 250 mg tablet RxNorm: 551143 1 Tablet(s) PO UD 09/05/2016 09/09/2016 Inactive zpack Kenalog 40 mg/mL suspension for injection RxNorm: 1238958 1 Milliliter(s) Inj 09/05/2016 09/05/2016 Inactive Lipitor 10 mg tablet RxNorm: 190446 TAKE ONE TABLET BY MOUTH EVERY DAY 08/30/2016 02/25/2017 Inactive Ativan 1 mg tablet RxNorm: 604433 1 Tablet(s) PO Q6 PRN as needed TAKE ONE TABLET BY MOUTH THREE TIMES A DAY OR EVERY 6 HOURS NEEDED FOR ANXIETY 08/30/2016 12/22/2016 Inactive Synthroid 112 mcg tablet RxNorm: 458159 1 Tablet(s) PO daily except one-half tab on /Mon08/23/2016 12/12/2016 Inactive will refill when needed Lexapro 20 mg tablet RxNorm: 185197 TAKE ONE TABLET BY MOUTH DAILY 08/02/2016 11/28/2016 Inactive Synthroid 112 mcg tablet RxNorm: 610847 1 Tablet(s) PO daily except 1/2 tab wed and sat 05/25/2016 08/22/2016 Inactive will refill when needed Xanax 0.5 mg tablet RxNorm: 755681 1 Tablet(s) PO QID as needed anxiety 05/10/2016 08/29/2016 Inactive Lexapro 20 mg tablet RxNorm: 478035 1 Tablet(s) PO daily 05/03/2016 07/31/2016 Inactive 1/2 tab x 1 week then increase to a full pill daily buspirone 5 mg tablet RxNorm: 231484 TAKE ONE-HALF TABLET BY MOUTH TWICE A DAY 03/15/2016 05/02/2016 Inactive Synthroid 112 mcg tablet RxNorm: 151861 1 Tablet(s) PO daily 02/25/2016 05/24/2016 Inactive Ativan 1 mg tablet RxNorm: 357099 Tablet(s) TAKE ONE TABLET BY MOUTH THREE TIMES A DAY OR EVERY 6 HOURS NEEDED FOR ANXIETY 02/04/2016 05/08/2016 Inactive Synthroid 125 mcg tablet RxNorm: 643096 TAKE ONE TABLET BY MOUTH TWICE WEEKLY 01/11/2016 02/24/2016 Inactive Synthroid 112 mcg tablet RxNorm: 474882 TAKE ONE TABLET BY MOUTH FIVE DAYS A WEEK 01/11/2016 02/24/2016 Inactive Wellbutrin 75 mg tablet RxNorm: 175404 TAKE ONE TABLET BY MOUTH TWICE A DAY 01/11/2016 05/02/2016 Inactive Ativan 1 mg tablet RxNorm: 236870 TAKE ONE TABLET BY MOUTH THREE TIMES A DAY OR EVERY 6 HOURS NEEDED 12/03/2015 12/27/2015 Inactive Lipitor 10 mg tablet RxNorm: 300147 TAKE ONE TABLET BY MOUTH EVERY DAY 12/03/2015 08/28/2016 Inactive Ativan 1 mg tablet RxNorm: 695346 Tablet(s) TAKE ONE TABLET BY MOUTH THREE TIMES A DAY AND TAKE ONE TABLET BY MOUTH EVERY 6 HOURS NEEDED FOR ANXIETY 12/03/2015 12/02/2015 Inactive (Response to an electronic controlled substance refill request - RxReferenceNumber: [id number]) Wellbutrin 75 mg tablet RxNorm: 109642 1 Tablet(s) PO BID 11/13/2015 01/10/2016 Inactive Ativan 1 mg tablet RxNorm: 746894 Tablet(s) TAKE ONE TABLET BY MOUTH THREE TIMES A DAY AND TAKE ONE TABLET BY MOUTH EVERY 6 HOURS NEEDED FOR ANXIETY 09/23/2015 10/30/2015 Inactive (Response to an electronic controlled substance refill request - RxReferenceNumber: [id number]) buspirone 5 mg tablet RxNorm: 901228 TAKE ONE-HALF TABLET BY MOUTH TWICE A DAY 08/18/2015 03/01/2016 Inactive ceftriaxone 500 mg solution for injection RxNorm: 0601538 Inj 07/23/2015 07/23/2015 Inactive Zithromax Z-Que 250 mg tablet RxNorm: 479411 1 Tablet(s) PO UD 07/23/2015 07/27/2015 Inactive ZPACK buspirone 5 mg tablet RxNorm: 430612 1 Tablet(s) PO daily 07/06/2015 10/03/2015 Inactive buspirone 5 mg tablet RxNorm: 350230 1/2 Tablet(s) PO BID 05/26/2015 07/05/2015 Inactive Lipitor 10 mg tablet RxNorm: 990057 TAKE ONE TABLET BY MOUTH EVERY DAY 04/23/2015 10/19/2015 Inactive Ativan 1 mg tablet RxNorm: 598902 Tablet(s) TAKE ONE TABLET BY MOUTH THREE TIMES A DAY AND TAKE ONE TABLET BY MOUTH EVERY 6 HOURS NEEDED FOR ANXIETY 02/23/2015 04/01/2015 Inactive (Response to an electronic controlled substance refill request - RxReferenceNumber: [id number]) Synthroid 125 mcg tablet RxNorm: 985651 1 Tablet(s) PO UD twice weekly 12/10/2014 06/07/2015 Inactive Synthroid 112 mcg tablet RxNorm: 654236 1 Tablet(s) PO UD TAKE ONE TABLET BY MOUTH 5 days a week 12/10/2014 12/04/2015 Inactive Lexapro 20 mg tablet RxNorm: 919143 1 Tablet(s) PO daily 11/26/2014 11/12/2015 Inactive Lipitor 10 mg tablet RxNorm: 450546 TAKE ONE TABLET BY MOUTH EVERY DAY 10/21/2014 04/18/2015 Inactive amoxicillin 500 mg capsule RxNorm: 564504 1 Capsule(s) PO TID 10/15/2014 10/21/2014 Inactive take probiotic BID x 7 days during abt period amoxicillin 500 mg capsule RxNorm: 854501 1 Capsule(s) PO TID 10/15/2014 10/14/2014 Inactive take probiotic BID x 7 days during abt period Ativan 1 mg tablet RxNorm: 862682 TAKE ONE TABLET BY MOUTH THREE TIMES A DAY AND TAKE ONE TABLET BY MOUTH EVERY 6 HOURS NEEDED FOR ANXIETY 08/21/2014 09/28/2014 Inactive (Response to an electronic controlled substance refill request - [id number]) Ativan 1 mg tablet RxNorm: 702760 1 Tablet(s) PO tid and Q6 PRN as needed 08/18/2014 08/21/2014 Inactive doxycycline hyclate 100 mg tablet RxNorm: 406714 1 Tablet(s) PO BID 04/23/2014 05/25/2015 Inactive prednisone 10 mg tablets in a dose pack RxNorm: 401536 1 Tablet(s) PO 02/14/2014 05/25/2015 Inactive Kenalog 40 mg/mL suspension for injection RxNorm: 2769379 1 Milliliter(s) Inj 02/11/2014 02/11/2014 Inactive Keflex 500 mg capsule RxNorm: 743738 1 Capsule(s) PO TID 01/21/2014 01/27/2014 Inactive Kenalog 40 mg/mL suspension for injection RxNorm: 1457647 Milliliter(s) Inj 01/21/2014 01/21/2014 Inactive Synthroid 112 mcg tablet RxNorm: 737528 1 Tablet(s) PO daily TAKE ONE TABLET BY MOUTH EVERY DAY 12/05/2013 11/29/2014 Inactive Ativan 1 mg tablet RxNorm: 289977 1 Tablet(s) PO Q6 PRN 11/05/2013 02/02/2014 Inactive Lexapro 20 mg tablet RxNorm: 303371 1 Tablet(s) PO daily 11/05/2013 11/04/2013 Inactive Lexapro 20 mg tablet RxNorm: 564892 1 Tablet(s) PO daily 11/05/2013 10/30/2014 Inactive Lipitor 10 mg tablet RxNorm: 522668 1 Tablet(s) PO QPM TAKE ONE TABLET BY MOUTH EVERY DAY 09/30/2013 10/20/2014 Inactive Lexapro 20 mg tablet RxNorm: 151247 1 Tablet(s) PO daily 09/30/2013 11/04/2013 Inactive Synthroid 125 mcg tablet RxNorm: 729701 1 Tablet(s) PO daily 09/10/2013 12/04/2013 Inactive Synthroid 100 mcg tablet RxNorm: 882970 1 Tablet(s) PO daily TAKE ONE TABLET BY MOUTH EVERY DAY 09/06/2013 09/09/2013 Inactive Lipitor 10 mg tablet RxNorm: 689337 Tablet(s) PO TAKE ONE TABLET BY MOUTH EVERY DAY 08/15/2013 09/29/2013 Inactive Synthroid 100 mcg tablet RxNorm: 318924 1 Tablet(s) PO daily TAKE ONE TABLET BY MOUTH EVERY DAY 04/26/2013 09/05/2013 Inactive Ativan 1 mg tablet RxNorm: 269471 1 Tablet(s) PO Q6 PRN 03/13/2013 No Stop Date Active Synthroid 100 mcg tablet RxNorm: 176272 1 Tablet(s) PO daily TAKE ONE TABLET BY MOUTH EVERY DAY 03/13/2013 04/25/2013 Inactive Lexapro 20 mg tablet RxNorm: 738190 1/2 Tablet(s) PO BID 03/13/2013 09/29/2013 Inactive Synthroid 112 mcg tablet RxNorm: 526883 Tablet(s) PO TAKE ONE TABLET BY MOUTH EVERY DAY 01/08/2013 03/12/2013 Inactive Lexapro 20 mg tablet RxNorm: 709190 Tablet(s) PO TAKE 1/2 TABLET EVERY MORNING AND TAKE ONE TABLET BY MOUTH AT BEDTIME 10/18/2012 03/12/2013 Inactive Lipitor 20 mg tablet RxNorm: 563795 1/2 Tablet(s) PO daily 08/20/2012 02/04/2013 Inactive Lipitor 10 mg tablet RxNorm: 026851 1 Tablet(s) PO daily 05/23/2012 08/19/2012 Inactive Synthroid 112 mcg tablet RxNorm: 199929 1 Tablet(s) PO daily 12/16/2011 01/07/2013 Inactive Synthroid 112 mcg Tab RxNorm: 149482 1 Tablet(s) PO daily 12/16/2011 12/15/2011 Inactive Lipitor 10 mg tablet RxNorm: 107078 1 Tablet(s) PO daily 12/15/2011 05/22/2012 Inactive Synthroid 112 mcg Tab RxNorm: 588467 1 Tablet(s) PO every other day 11/09/2011 12/15/2011 Inactive every other day Synthroid 112 mcg Tab RxNorm: 545412 1 Tablet(s) PO every other day 10/21/2011 11/08/2011 Inactive every other day Synthroid 125 mcg Tab RxNorm: 282662 1 Tablet(s) PO every other day 10/21/2011 12/16/2011 Inactive every other day Lexapro 20 mg tablet RxNorm: 422449 1.5 Tablet(s) PO daily 1/2 pill in AM and 1 pill at bedtime 09/22/2011 04/18/2012 Inactive 1/2 q am 1 q hs diazepam 5 mg Tab RxNorm: 150151 1 Tablet(s) PO daily 1 tab bid prn 09/21/2011 05/17/2012 Inactive Lexapro 20 mg Tab RxNorm: 578248 1.5 Tablet(s) PO daily 1/2 pill in AM and 1 pill at bedtime 08/22/2011 09/21/2011 Inactive diazepam 5 mg Tab RxNorm: 688932 1 Tablet(s) PO daily 1 tab bid prn 06/20/2011 09/20/2011 Inactive diazepam 5 mg Tab RxNorm: 958958 1 Tablet(s) PO daily 1 tab bid prn 06/20/2011 06/19/2011 Inactive diazepam 5 mg Tab RxNorm: 401656 1 Tablet(s) PO daily 1 tab bid prn 06/17/2011 06/19/2011 Inactive Lipitor 10 mg Tab RxNorm: 941619 1 Tablet(s) PO daily 05/31/2011 11/26/2011 Inactive diazepam 5 mg Tab RxNorm: 516129 1 Tablet(s) PO BID 1 tab bid prn 04/21/2011 05/20/2011 Inactive Calcium 600 + D(3) Oral RxNorm: Oral No Start Date Active Menest 0.625 mg Tab RxNorm: 051596 1 Tablet(s) PO daily No Start Date 06/16/2011 Inactive Synthroid 125 mcg tablet RxNorm: 308290 Tablet(s) PO No Start Date 09/09/2013 Inactive Ativan 1 mg tablet RxNorm: 582871 1 Tablet(s) PO Q6 PRN No Start Date 08/21/2011 Inactive aspirin 81 mg Tab, Delayed Release RxNorm: 9704205 1 Tablet(s) PO daily No Start Date 09/29/2013 Inactive Lexapro 10 mg Tab RxNorm: 313494 1 Tablet(s) PO daily No Start Date 08/22/2011 Inactive prednisone 10 mg tablets in a dose pack RxNorm: 129008 1 Tablet(s) PO No Start Date 02/13/2014 Inactive Synthroid 112 mcg Tab RxNorm: 407155 Tablet(s) PO tu/thurs/sat/sun No Start Date 10/20/2011 Inactive lorazepam 1 mg Tab RxNorm: 131563 Tablet(s) PO Q6 PRN No Start Date 11/04/2013 Inactive Lipitor 20 mg tablet RxNorm: 359390 1/2 Tablet(s) PO daily No Start Date 08/20/2012 Inactive Vitamin D2 oral RxNorm: oral No Start Date 09/29/2013 Inactive Synthroid 125 mcg Tab RxNorm: 601924 1 Tablet(s) PO No Start Date 10/20/2011 Inactive synthroid 112 mcg mon Medication Administered Medication Codes Instructions Start Date Status Kenalog 40 mg/mL suspension for injection RxNorm: 9612421 1Milliliter 09/11/2018 No longer Active Kenalog 40 mg/mL suspension for injection RxNorm: 9681062 1Milliliter 09/05/2016 No longer Active ceftriaxone 500 mg solution for injection RxNorm: 8610802 07/23/2015 No longer Active Kenalog 40 mg/mL suspension for injection RxNorm: 2696951 1Milliliter 02/11/2014 No longer Active Kenalog 40 mg/mL suspension for injection RxNorm: 3888188 Milliliter 01/21/2014 No longer Active Immunizations Vaccine Codes Date Status Influenza CVX: 141 04/24/2018 completed Influenza CVX: 141 06/07/2017 completed Pneumococcal (Adult) CVX: 133 11/13/2015 completed Influenza CVX: 141 04/15/2014 completed Pneumococcal (Adult) CVX: 33 04/15/2014 completed PPD Unknown 10/10/2013 completed Influenza CVX: 141 09/30/2013 completed Assessments Condition Codes Effective Dates Cough ICD-10: R05 ICD-9: 786.2 09/11/2018 Acute recurrent maxillary sinusitis ICD-10: J01.01 ICD-9: 461.0 09/11/2018 Pain in right hand ICD-10: M79.641 ICD-9: 729.5 07/12/2018 Dysuria ICD-10: R30.0 ICD-9: 788.1 05/07/2018 Encounter for immunization ICD-10: Z23 ICD-9: V04.81 04/24/2018 Tinnitus, bilateral ICD-10: H93.13 ICD-9: 388.31 02/21/2018 Other allergic rhinitis ICD-10: J30.89 ICD-9: 477.8 02/21/2018 Encounter for general adult medical examination with abnormal findings ICD-10: Z00.01 ICD-9: V70.0 11/28/2017 Acute laryngopharyngitis ICD-10: J06.0 ICD-9: 465.0 08/29/2017 Major depressive disorder, recurrent, moderate ICD-10: F33.1 ICD-9: 296.32 06/13/2017 Generalized anxiety disorder ICD-10: F41.1 ICD-9: 300.02 06/13/2017 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 ICD-9: 244.0 06/13/2017 Pelvic and perineal pain ICD-10: R10.2 ICD-9: AWM5080 02/16/2017 Acute vaginitis ICD-10: N76.0 ICD-9: 623.5 02/16/2017 Other specified hypothyroidism ICD-10: E03.8 ICD-9: 244.8 11/17/2016 Generalized anxiety disorder ICD-10: F41.1 ICD-9: 313.0 10/12/2016 Acute upper respiratory infection, unspecified ICD-10: J06.9 ICD-9: 465.9 09/05/2016 Encounter for general adult medical examination without abnormal findings ICD-10: Z00.00 ICD-9: V70.0 11/13/2015 Encounter for immunization ICD-10: Z23 ICD-9: V03.9 11/13/2015 Other depressive episodes ICD-10: F32.8 ICD-9: 311 07/06/2015 Hypothyroidism, unspecified ICD-10: E03.9 ICD-9: 244.9 07/06/2015 Major depressive disorder, recurrent, unspecified ICD-10: F33.9 ICD-9: 296.30 05/26/2015 2Nd degree burn of multiple fingers of right hand not including thumb ICD-9: 944.23 02/16/2015 HYPOTHYROIDISM ICD-9: 244.9 12/10/2014 Hammertoe ICD-9: 735.4 12/10/2014 Foot pain ICD-9: 729.5 12/10/2014 Urinary incontinence ICD-9: 788.30 10/16/2014 Pelvic pain in female ICD-9: 625.9 10/16/2014 Neck pain ICD-9: 723.1 05/16/2014 Muscle tension headache ICD-9: 307.81 05/16/2014 Myalgia ICD-9: 729.1 04/23/2014 Poison diana dermatitis ICD-9: 692.6 04/23/2014 Arthropod bite ICD-9: 919.4 04/23/2014 Arthralgia ICD-9: 719.40 04/23/2014 Vac strep pneumoniae-flu ICD-9: V06.6 04/15/2014 Skin eruption ICD-9: 782.1 02/11/2014 ACUTE URI ICD-9: 465.9 01/21/2014 COUGH ICD-9: 786.2 01/21/2014 GENERALIZED ANXIETY DISEASE ICD-9: 300.02 12/05/2013 [...] 29.7 pg 11/23/2017 Cbc With Differential Ord2 Desha% 9.0 % 11/23/2017 Cbc With Differential Ord2 Eos% 3.3 % 11/23/2017 Cbc With Differential Ord2 MCHC 33.4 pg 11/23/2017 Cbc With Differential Ord2 PLT 467 K/ul 11/23/2017 Cbc With Differential Ord2 Baso% 0.3 % 11/23/2017 Cbc With Differential Ord2 Neut ABS# 3.75 K/ul 11/23/2017 Cbc With Differential Ord2 RDW 13.1 % 11/23/2017 Cbc With Differential Ord2 Lymph ABS# 1.77 K/ul 11/23/2017 Cbc With Differential Ord2 Desha ABS# 0.6 K/ul 11/23/2017 Cbc With Differential Ord2 Eos ABS# 0.2 K/ul 11/23/2017 Cbc With Differential Ord2 Baso ABS# 0.0 K/ul 11/23/2017 Tsh Ord6 TSH (3rd IS) 0.17 uIU/mL 11/23/2017 Free T4 Fbj493 FREE T4 1.10 ng/dL 11/23/2017 Comp Metabolic Gwy125 NA 142 mEq/L 11/23/2017 Comp Metabolic Wjs719 K 4.4 mEq/L 11/23/2017 Comp Metabolic Fhy372 CL 109 mEq/L 11/23/2017 Comp Metabolic Ldo478 CO2 28.0 mEq/L 11/23/2017 Comp Metabolic Rxx234 ANION GAP 9 11/23/2017 Comp Metabolic Mwp527 GLUCOSE 106 mg/dL 11/23/2017 Comp Metabolic Gvj421 Creat 0.9 mg/dL 11/23/2017 Comp Metabolic Oxg308 eGFR 68 ml/min/1.73m2 11/23/2017 Comp Metabolic Zjm907 BUN 17 mg/dL 11/23/2017 Comp Metabolic Qvi836 B/C Ratio 19.3 Ratio 11/23/2017 Comp Metabolic Usi566 CALCIUM 9.0 mg/dL 11/23/2017 Comp Metabolic Oqb616 ALK PHOS 65 U/L 11/23/2017 Comp Metabolic Kbe578 AST(SGOT) 18 U/L 11/23/2017 Comp Metabolic Gnr070 ALT(SGPT) 16 U/L 11/23/2017 Comp Metabolic Suq220 BILI T 0.5 mg/dL 11/23/2017 Comp Metabolic Wti436 ALBUMIN 4.2 g/dL 11/23/2017 Comp Metabolic Nqi991 TPRO 6.5 g/dL 11/23/2017 Comp Metabolic Hgu451 GLOB 2.3 g/dL 11/23/2017 Comp Metabolic Zqp682 A/G Ratio 1.8 Ratio 11/23/2017 Comp Metabolic Eac592 Osmo 285 mOsmo 11/23/2017 Lipid Ord30 CHOL 160 mg/dL 11/23/2017 Lipid Ord30 HDL 49.0 mg/dl 11/23/2017 Lipid Ord30 TRIG 133 mg/dL 11/23/2017 Lipid Ord30 LDL 84 mg/dL 11/23/2017 Lipid Ord30 C/HDL 3.3 Ratio 11/23/2017 Cbc With Differential Ord2 WBC 5.38 K/ul 06/07/2017 Cbc With Differential Ord2 RBC 4.24 M/ul 06/07/2017 Cbc With Differential Ord2 HGB 13.0 g/dl 06/07/2017 Cbc With Differential Ord2 Neut% 56.7 % 06/07/2017 Cbc With Differential Ord2 HCT 38.6 % 06/07/2017 Cbc With Differential Ord2 Lymph% 30.1 % 06/07/2017 Cbc With Differential Ord2 MCV 91.0 fl 06/07/2017 Cbc With Differential Ord2 MCH 30.7 pg 06/07/2017 Cbc With Differential Ord2 Desha% 9.1 % 06/07/2017 Cbc With Differential Ord2 [...] 1.62 K/ul 06/07/2017 Cbc With Differential Ord2 Desha ABS# 0.5 K/ul 06/07/2017 Cbc With Differential Ord2 Eos ABS# 0.2 K/ul 06/07/2017 Cbc With Differential Ord2 Baso ABS# 0.0 K/ul 06/07/2017 Free T4 Kzx105 FREE T4 0.92 ng/dL 06/07/2017 Comp Metabolic Nqq139 NA 141 mEq/L 06/07/2017 Comp Metabolic Hym565 K 4.3 mEq/L 06/07/2017 Comp Metabolic Mzi164 CL 106 mEq/L 06/07/2017 Comp Metabolic Hae286 CO2 26.0 mEq/L 06/07/2017 Comp Metabolic Gqv985 ANION GAP 13 06/07/2017 Comp Metabolic Cir842 GLUCOSE 93 mg/dL 06/07/2017 Comp Metabolic Yph992 Creat 0.9 mg/dL 06/07/2017 Comp Metabolic Ktk190 eGFR 65 ml/min/1.73m2 06/07/2017 Comp Metabolic Zij875 BUN 10 mg/dL 06/07/2017 Comp Metabolic Eyz228 B/C Ratio 11.0 Ratio 06/07/2017 Comp Metabolic Uen201 CALCIUM 8.9 mg/dL 06/07/2017 Comp Metabolic Vwf150 ALK PHOS 69 U/L 06/07/2017 Comp Metabolic Phf832 AST(SGOT) 18 U/L 06/07/2017 Comp Metabolic Hej840 ALT(SGPT) 15 U/L 06/07/2017 Comp Metabolic Lhr607 BILI T 0.5 mg/dL 06/07/2017 Comp Metabolic Ecl953 ALBUMIN 4.1 g/dL 06/07/2017 Comp Metabolic Jig516 TPRO 6.5 g/dL 06/07/2017 Comp Metabolic Ecp848 GLOB 2.4 g/dL 06/07/2017 Comp Metabolic Yvm582 A/G Ratio 1.7 Ratio 06/07/2017 Comp Metabolic Ycf453 Osmo 280 mOsmo 06/07/2017 Tsh Ord6 hTSH II 4.83 uIU/mL 06/07/2017 Lipid Ord30 CHOL 163 mg/dL 06/07/2017 Lipid Ord30 HDL 52.0 mg/dl 06/07/2017 Lipid Ord30 TRIG 120 mg/dL 06/07/2017 Lipid Ord30 LDL 87 mg/dL 06/07/2017 Lipid Ord30 C/HDL 3.1 Ratio 06/07/2017 Free T4 Nso520 FREE T4 1.02 ng/dL 11/17/2016 Tsh Ord6 hTSH II 1.07 uIU/mL 11/17/2016 Lipid Ord30 CHOL 195 mg/dL 10/13/2016 Lipid Ord30 HDL 68.0 mg/dl 10/13/2016 Lipid Ord30 TRIG 69 mg/dL 10/13/2016 Lipid Ord30 LDL 113 mg/dL 10/13/2016 Lipid Ord30 C/HDL 2.9 Ratio 10/13/2016 Comp Metabolic Mar341 NA 138 mEq/L 10/13/2016 Comp Metabolic Ywv874 K 4.4 mEq/L 10/13/2016 Comp Metabolic Hpr206 CL 102 mEq/L 10/13/2016 Comp Metabolic Wiu619 CO2 29.0 mEq/L 10/13/2016 Comp Metabolic Wqh772 ANION GAP 11 10/13/2016 Comp Metabolic Siy900 GLUCOSE 85 mg/dL 10/13/2016 Comp Metabolic Qti001 Creat 1.0 mg/dL 10/13/2016 Comp Metabolic Qad656 eGFR 59 ml/min/1.73m2 10/13/2016 Comp Metabolic Xze455 BUN 21 mg/dL 10/13/2016 Comp Metabolic Rvt980 B/C Ratio 21.2 Ratio 10/13/2016 Comp Metabolic Liq629 CALCIUM 9.7 mg/dL 10/13/2016 Comp Metabolic Zab253 ALK PHOS 70 U/L 10/13/2016 Comp Metabolic Jrt419 AST(SGOT) 17 U/L 10/13/2016 Comp Metabolic Ggq784 ALT(SGPT) 14 U/L 10/13/2016 Comp Metabolic Ahc948 BILI T 0.9 mg/dL 10/13/2016 Comp Metabolic Cbe615 ALBUMIN 4.4 g/dL 10/13/2016 Comp Metabolic Goc387 TPRO 7.1 g/dL 10/13/2016 Comp Metabolic Evy276 GLOB 2.7 g/dL 10/13/2016 Comp Metabolic Exu509 A/G Ratio 1.6 Ratio 10/13/2016 Comp Metabolic Xmt373 Osmo 278 mOsmo 10/13/2016 Cbc With Differential [...] 23.8 % 10/13/2016 Cbc With Differential Ord2 Desha% 7.7 % 10/13/2016 Cbc With Differential Ord2 MCH 29.7 pg 10/13/2016 Cbc With Differential Ord2 Eos% 1.8 % 10/13/2016 Cbc With Differential Ord2 MCHC 33.2 pg 10/13/2016 Cbc With Differential Ord2 Baso% 0.3 % 10/13/2016 Cbc With Differential Ord2 PLT 521 K/ul 10/13/2016 Cbc With Differential Ord2 Neut ABS# 3.98 K/ul 10/13/2016 Cbc With Differential Ord2 RDW 13.9 % 10/13/2016 Cbc With Differential Ord2 Lymph ABS# 1.43 K/ul 10/13/2016 Cbc With Differential Ord2 Desha ABS# 0.5 K/ul 10/13/2016 Cbc With Differential Ord2 Eos ABS# 0.1 K/ul 10/13/2016 Cbc With Differential Ord2 Baso ABS# 0.0 K/ul 10/13/2016 Tsh Ord6 hTSH II 0.64 uIU/mL 08/17/2016 Free T4 Ryt513 FREE T4 1.31 ng/dL 08/17/2016 Cbc With Differential Ord2 WBC 6.60 K/ul [...] 29.1 pg 05/10/2016 Cbc With Differential Ord2 Desha% 8.3 % 05/10/2016 Cbc With Differential Ord2 MCHC 34.0 pg 05/10/2016 Cbc With Differential Ord2 Eos% 2.9 % 05/10/2016 Cbc With Differential Ord2 Baso% 0.6 % 05/10/2016 Cbc With Differential Ord2 PLT 457 K/ul 05/10/2016 Cbc With Differential Ord2 RDW 13.5 % 05/10/2016 Cbc With Differential Ord2 Neut ABS# 4.25 K/ul 05/10/2016 Cbc With Differential Ord2 Lymph ABS# 1.57 K/ul 05/10/2016 Cbc With Differential Ord2 Desha ABS# 0.6 K/ul 05/10/2016 Cbc With Differential Ord2 Eos ABS# 0.2 K/ul 05/10/2016 Cbc With Differential Ord2 Baso ABS# 0.0 K/ul 05/10/2016 Tsh Ord6 hTSH II 0.03 uIU/mL 05/10/2016 Free T4 [id number] FREE T4 1.49 ng/dL 05/10/2016 Comp Metabolic Idz851 NA 139 mEq/L 05/10/2016 Comp Metabolic Byl603 K 4.5 mEq/L 05/10/2016 Comp Metabolic Pob639 CL 104 mEq/L 05/10/2016 Comp Metabolic Myc882 CO2 24.0 mEq/L 05/10/2016 Comp Metabolic Bcq712 ANION GAP 16 05/10/2016 Comp Metabolic Ilr322 GLUCOSE 87 mg/dL 05/10/2016 Comp Metabolic Lyt842 Creat 0.9 mg/dL 05/10/2016 Comp Metabolic Qlx630 eGFR 71 ml/min/1.73m2 05/10/2016 Comp Metabolic Mpj186 BUN 12 mg/dL 05/10/2016 Comp Metabolic Hch273 B/C Ratio 14.1 Ratio 05/10/2016 Comp Metabolic Row012 CALCIUM 9.6 mg/dL 05/10/2016 Comp Metabolic Who036 ALK PHOS 89 U/L 05/10/2016 Comp Metabolic Nuc546 AST(SGOT) 17 U/L 05/10/2016 Comp Metabolic Gbx356 ALT(SGPT) 17 U/L 05/10/2016 Comp Metabolic Hdh586 BILI T 0.9 mg/dL 05/10/2016 Comp Metabolic Rri408 ALBUMIN 4.2 g/dL 05/10/2016 Comp Metabolic Uox339 TPRO 6.7 g/dL 05/10/2016 Comp Metabolic Fyo195 GLOB 2.5 g/dL 05/10/2016 Comp Metabolic Jvc024 A/G Ratio 1.7 Ratio 05/10/2016 Comp Metabolic Ljy311 Osmo 277 mOsmo 05/10/2016 Cbc With Differential Ord2 WBC 5.74 K/ul 02/18/2016 Cbc With Differential Ord2 RBC 4.91 M/ul 02/18/2016 Cbc With Differential Ord2 HGB 14.2 g/dl 02/18/2016 Cbc With Differential Ord2 HCT 42.0 % 02/18/2016 Cbc With Differential Ord2 Neut% 70.7 % 02/18/2016 Cbc With Differential Ord2 Lymph% 18.8 % 02/18/2016 Cbc With Differential Ord2 MCV 85.5 fl 02/18/2016 Cbc With Differential Ord2 Desha% 10.5 % 02/18/2016 Cbc With Differential Ord2 MCH 28.9 pg 02/18/2016 Cbc With Differential Ord2 MCHC 33.8 pg 02/18/2016 Cbc With Differential Ord2 Eos% 0.0 % 02/18/2016 Cbc With Differential Ord2 Baso% 0.0 % 02/18/2016 Cbc With Differential Ord2 PLT 474 K/ul 02/18/2016 Cbc With Differential Ord2 Neut ABS# 4.06 K/ul 02/18/2016 Cbc With Differential Ord2 RDW 12.9 % 02/18/2016 Cbc With Differential Ord2 Lymph ABS# 1.08 K/ul 02/18/2016 Cbc With Differential Ord2 Desha ABS# 0.6 K/ul 02/18/2016 Cbc With Differential Ord2 Eos ABS# 0.0 K/ul 02/18/2016 Cbc With Differential Ord2 Baso ABS# 0.0 K/ul 02/18/2016 Lipid Ord30 CHOL 163 mg/dL 02/18/2016 Lipid Ord30 HDL 43.0 mg/dl 02/18/2016 Lipid Ord30 TRIG 90 mg/dL 02/18/2016 Lipid Ord30 LDL 102 mg/dL 02/18/2016 Lipid Ord30 C/HDL 3.8 Ratio 02/18/2016 Comp Metabolic Lsh623 NA 138 mEq/L 02/18/2016 Comp Metabolic Tmj529 K 4.5 mEq/L 02/18/2016 Comp Metabolic Bnc112 CL 104 mEq/L 02/18/2016 Comp Metabolic Xbj517 CO2 26.0 mEq/L 02/18/2016 Comp Metabolic Peg898 ANION GAP 13 02/18/2016 Comp Metabolic Cwh500 GLUCOSE 88 mg/dL 02/18/2016 Comp Metabolic Ilk302 Creat 0.9 mg/dL 02/18/2016 Comp Metabolic Orn230 eGFR 69 ml/min/1.73m2 02/18/2016 Comp Metabolic Nlo274 BUN 14 mg/dL 02/18/2016 Comp Metabolic Qzn124 B/C Ratio 16.1 Ratio 02/18/2016 Comp Metabolic Tfk540 CALCIUM 9.4 mg/dL 02/18/2016 Comp Metabolic Egh117 ALK PHOS 95 U/L 02/18/2016 Comp Metabolic Lto225 AST(SGOT) 19 U/L 02/18/2016 Comp Metabolic Afp006 ALT(SGPT) 18 U/L 02/18/2016 Comp Metabolic Opf602 BILI T 0.7 mg/dL 02/18/2016 Comp Metabolic Tlj844 ALBUMIN 4.4 g/dL 02/18/2016 Comp Metabolic Bfy989 TPRO 6.9 g/dL 02/18/2016 Comp Metabolic Wxb399 GLOB 2.5 g/dL 02/18/2016 Comp Metabolic Aiy185 A/G Ratio 1.7 Ratio 02/18/2016 Comp Metabolic Ljq215 Osmo 276 mOsmo 02/18/2016 Tsh Ord6 hTSH II 0.06 uIU/mL 02/18/2016 Free T4 Huo223 FREE T4 1.67 ng/dL 02/18/2016 Comp Metabolic Zuj682 NA 136 mEq/L 06/08/2015 Comp Metabolic Wei722 K 3.9 mEq/L 06/08/2015 Comp Metabolic Bxb696 CL 103 mEq/L 06/08/2015 Comp Metabolic Fwr254 CO2 25.0 mEq/L 06/08/2015 Comp Metabolic Vxz720 ANION GAP 12 06/08/2015 Comp Metabolic Ybh970 GLUCOSE 91 mg/dL 06/08/2015 Comp Metabolic Qri715 Creat 0.9 mg/dL 06/08/2015 Comp Metabolic Pme057 eGFR 68 ml/min/1.73m2 06/08/2015 Comp Metabolic Wze173 BUN 10 mg/dL 06/08/2015 Comp Metabolic Ser240 B/C Ratio 11.4 Ratio 06/08/2015 Comp Metabolic Rid194 CALCIUM 9.4 mg/dL 06/08/2015 Comp Metabolic Ljr804 ALK PHOS 88 U/L 06/08/2015 Comp Metabolic Nqp305 AST(SGOT) 20 U/L 06/08/2015 Comp Metabolic Vwb493 ALT(SGPT) 18 U/L 06/08/2015 Comp Metabolic Yzt916 BILI T 0.8 mg/dL 06/08/2015 Comp Metabolic Wqq686 ALBUMIN 4.4 g/dL 06/08/2015 Comp Metabolic Tip998 TPRO 7.0 g/dL 06/08/2015 Comp Metabolic Ncd306 GLOB 2.6 g/dL 06/08/2015 Comp Metabolic Fqt379 A/G Ratio 1.7 Ratio 06/08/2015 Comp Metabolic Lqb236 Osmo 271 mOsmo 06/08/2015 Tsh Ord6 hTSH [...] Ord2 RDW 14.4 % 06/08/2015 LYME EIA [id number] LYME EIA 0.24 04/25/2014 TULAREM AB [id number] TULAREM AB <1:20 04/24/2014 RMSF IFA [id number] IGG RMSF <1:16 04/24/2014 RMSF IFA 1928509 IGM RMSF <1:10 04/24/2014 E CHAFF AB [id number] IGG E CHFF <1:16 04/24/2014 E CHAFF AB [id number] IGM E CHFF <1:10 04/24/2014 ICT OCCULT [id number] ICT OCCULT NEG 10/11/2013 Review of Systems [...] intact 09/30/2013 None Full Exam - General 1995 Psychiatric orientation/consciousness Overall: oriented to person, place and time 09/30/2013 None Full Exam - General 1994 Psychiatric mood and affect Overall: normal mood and affect 09/30/2013 None Full Exam - General 1995 Ears/Nose/Throat oral cavity/pharynx/larynx Overall: no masses 03/13/2013 None Full Exam - General 1995 [...] benign 10/04/2012 None Full Exam - General 1995 Neurologic gait Overall: no ataxia, no unsteadiness 10/04/2012 None Full Exam - General 1994 Neurologic cranial nerves Overall: crainial nerves 2 - 12 grossly intact 10/04/2012 None Full Exam - General 1995 Psychiatric orientation/consciousness Overall: oriented to person, place and time 10/04/2012 None Full Exam - General 1995 Psychiatric mood and affect Overall: normal mood and affect 10/04/2012 None Full Exam - General 1994 Psychiatric mood and affect Affect: mood congruent 08/22/2011 None Full Exam - General 1995 Psychiatric appearance Overall: well-groomed, good eye contact [...] J3301 09/11/2018 URINALYSIS NONAUTO W/O SCOPE CPT-4: 64548 05/07/2018 ADMIN INFLUENZA VIRUS VAC CPT-4: G0008 04/24/2018 FLU VACC PRSV FREE INC ANTIG CPT-4: 55614 04/24/2018 PPPS, SUBSEQ VISIT CPT- 4: G0439 11/28/2017 ADMIN INFLUENZA VIRUS VAC CPT-4: G0008 06/07/2017 FLU VACC PRSV FREE INC ANTIG CPT-4: 44015 06/07/2017 PPPS, SUBSEQ VISIT CPT- 4: G0439 11/17/2016 TRIAMCINOLONE ACET INJ NOS CPT-4: J3301 09/05/2016 PPPS, SUBSEQ VISIT CPT- 4: G0439 11/13/2015 PNEUMOCOCCAL VACC 13 STEPHANIE IM Formatting Model/CDA Sections, Assigned to/Lila Colon SNOMED CT: 17402506 CPT-4: 45491Lnioadh 11/13/2015 ADMIN PNEUMOCOCCAL VACCINE SNOMED CT: 16471252 CPT-4: G0009 11/13/2015 ROCEPHIN, PER 250 MG CPT- 4: J0696 07/23/2015 URINALYSIS NONAUTO W/O SCOPE CPT-4: 88626 10/10/2014 ROUTINE VENIPUNCTURE CPT- 4: 28560 04/23/2014 Pneumococcal Polysaccharide Vaccine, 23-Valent, Ad CPT-4: 65791 04/15/2014 ADMIN INFLUENZA VIRUS VAC CPT-4: G0008 04/15/2014 FLU VAC NO PRSV 4 STEPHANIE 3 YRS+ CPT-4: 73438 04/15/2014 ADMIN PNEUMOCOCCAL VACCINE SNOMED CT: 13480069 CPT-4: G0009 04/15/2014 THER/PROPH/DIAG INJ SC/IM CPT-4: 83107 02/11/2014 TRIAMCINOLONE ACET INJ NOS CPT-4: J3301 02/11/2014 TRIAMCINOLONE ACET INJ NOS CPT-4: J3301 01/21/2014 INITIAL PREVENTIVE EXAM CPT-4: G0402 09/30/2013 PRESCRIP TRANSMIT VIA ERX SY CPT-4: G8553 03/13/2013 Vital Signs Date Vital 09/11/2018 Blood Pressure 1: 114/76 Code: 8480-6 BMI: 29.3 Code: 57778-3 Heart Rate 1: 80 bpm Height: 5'5" SpO2: 95% Temperature: 36.3 (C) / 97.3 (F) Weight: 176 lbs 07/12/2018 Blood Pressure 1: 126/76 Code: 8480-6 BMI: 29.3 Code: 92096-1 Heart Rate 1: 70 bpm Height: 5'5" SpO2: 96% Weight: 176 lbs 05/07/2018 Blood Pressure 1: 118/72 Code: 8480-6 BMI: 29.5 Code: 97228-6 Heart Rate 1: 71 bpm Height: 5'5" SpO2: 98% Weight: 177 lbs 02/21/2018 Blood Pressure 1: 120/78 Code: 8480-6 BMI: 29.0 Code: 14522-2 Heart Rate 1: 68 bpm Height: 5'5" SpO2: 96% Weight: 174 lbs 11/28/2017 Blood Pressure 1: 122/98 Code: 8480-6 BMI: 31.0 Code: 55389-3 Heart Rate 1: 89 bpm Height: 5'5" SpO2: 98% Waist Measure (cm): 91 cm Weight: 186 lbs 08/29/2017 Blood Pressure 1: 146/80 Code: 8480-6 BMI: 29.5 Code: 21072-7 Heart Rate 1: 68 bpm Height: 5'5" SpO2: 98% Temperature: 36.6 (C) / 97.8 (F) Weight: 177 lbs 06/13/2017 Blood Pressure 1: 138/76 Code: 8480-6 BMI: 29.6 Code: 06710-4 Heart Rate 1: 63 bpm Height: 5'5" SpO2: 95% Weight: 178 lbs 02/16/2017 Blood Pressure 1: 128/80 Code: 8480-6 BMI: 29.9 Code: 11385-8 Heart Rate 1: 77 bpm Height: 5'5" SpO2: 96% Weight: 179 lbs 8 oz 02/06/2017 Blood Pressure 1: 140/80 Code: 8480-6 BMI: 29.8 Code: 64305-8 Heart Rate 1: 72 bpm Height: 5'5" SpO2: 97% Weight: 179 lbs 11/17/2016 Blood Pressure 1: 130/72 Code: 8480-6 BMI: 29.6 Code: 06436-9 Heart Rate 1: 62 bpm Height: 5'5" SpO2: 98% Waist Measure (cm): 91 cm Weight: 178 lbs 10/12/2016 Blood Pressure 1: 128/78 Code: 8480-6 BMI: 28.5 Code: 63703-1 Heart Rate 1: 62 bpm Height: 5'5" SpO2: 97% Weight: 171 lbs 09/05/2016 Blood Pressure 1: 122/70 Code: 8480-6 BMI: 28.0 Code: 69209-3 Heart Rate 1: 65 bpm Height: 5'5" SpO2: 94% Weight: 168 lbs 06/21/2016 Blood Pressure 1: 120/82 Code: 8480-6 BMI: 28.3 Code: 92633-8 Heart Rate 1: 65 bpm Height: 5'5" SpO2: 97% Weight: 170 lbs 05/24/2016 Blood Pressure 1: 136/80 Code: 8480-6 BMI: 28.1 Code: 77313-6 Heart Rate 1: 71 bpm Height: 5'5" SpO2: 96% Weight: 169 lbs 05/10/2016 Blood Pressure 1: 120/82 Code: 8480-6 BMI: 27.6 Code: 67553-6 Heart Rate 1: 86 bpm Height: 5'5" SpO2: 95% Weight: 166 lbs 05/03/2016 Blood Pressure 1: 124/78 Code: 8480-6 BMI: 28.1 Code: 86415-5 Heart Rate 1: 88 bpm Height: 5'5" SpO2: 97% Weight: 169 lbs 11/13/2015 Blood Pressure 1: 130/60 Code: 8480-6 BMI: 30.0 Code: 48991-7 Heart Rate 1: 7 bpm Height: 5'5" Waist Measure (cm): 97 cm Weight: 180 lbs 07/23/2015 Blood Pressure 1: 124/70 Code: 8480-6 BMI: 29.6 Code: 56232-7 Heart Rate 1: 74 bpm Height: 5'5" SpO2: 96% Temperature: 36.7 (C) / 98.1 (F) Weight: 178 lbs 07/06/2015 Blood Pressure 1: 138/78 Code: 8480-6 BMI: 29.6 Code: 93255-1 Heart Rate 1: 84 bpm Height: 5'5" SpO2: 96% Weight: 178 lbs 05/26/2015 Blood Pressure 1: 122/80 Code: 8480-6 BMI: 29.6 Code: 37183-3 Heart Rate 1: 84 bpm Height: 5'5" Weight: 178 lbs 02/16/2015 Blood Pressure 1: 124/82 Code: 8480-6 BMI: 29.0 Code: 39362-1 Heart Rate 1: 68 bpm Height: 5'5" Weight: 174 lbs 12/10/2014 Blood Pressure 1: 112/64 Code: 8480-6 BMI: 28.6 Code: 69767-7 Heart Rate 1: 80 bpm Height: 5'5" Weight: 172 lbs 10/16/2014 Blood Pressure 1: 128/84 Code: 8480-6 Heart Rate 1: 64 bpm Weight: 172 lbs 10/09/2014 Blood Pressure 1: 136/90 Code: 8480-6 BMI: 28.6 Code: 39237-4 Heart Rate 1: 76 bpm Height: 5'5" Weight: 172 lbs 08/26/2014 Blood Pressure 1: 118/72 Code: 8480-6 BMI: 29.0 Code: 61555-4 Heart Rate 1: 76 bpm Height: 5'5" Weight: 174 lbs 05/16/2014 Blood Pressure 1: 110/72 Code: 8480-6 BMI: 29.0 Code: 01872-5 Height: 5'5" Weight: 174 lbs 04/23/2014 Blood Pressure 1: 124/70 Code: 8480-6 BMI: 29.0 Code: 49328-9 Heart Rate 1: 72 bpm Height: 5'5" Weight: 174 lbs 04/15/2014 Temperature: 36.5 (C) / 97.7 (F) 01/21/2014 Blood Pressure 1: 98/62 Code: 8480-6 BMI: 29.0 Code: 57606- 5 Heart Rate 1: 84 bpm Height: 5'5" Temperature: 37.1 (C) / 98.7 (F) Weight: 174 lbs 12/05/2013 Blood Pressure 1: 138/88 Code: 8480-6 BMI: 29.0 Code: 85589-0 Heart Rate 1: 60 bpm Height: 5'5" Weight: 174 lbs 11/05/2013 Blood Pressure 1: 118/80 Code: 8480-6 BMI: 28.8 Code: 71746-0 Heart Rate 1: 76 bpm Height: 5'5" Weight: 173 lbs 10/15/2013 Blood Pressure 1: 120/78 Code: 8480-6 BMI: 29.1 Code: 36088-6 Heart Rate 1: 88 bpm Height: 5'5" Weight: 175 lbs 09/30/2013 Blood Pressure 1: 112/84 Code: 8480-6 BMI: 29.1 Code: 87122-2 Heart Rate 1: 68 bpm Height: 5'5" Weight: 175 lbs 03/13/2013 Blood Pressure 1: 112/84 Code: 8480-6 BMI: 28.6 Code: 32381-7 Heart Rate 1: 64 bpm Height: 5'5" Weight: 173 lbs 10/04/2012 Blood Pressure 1: 120/72 Code: 8480-6 BMI: 28.0 Code: 83997-5 Heart Rate 1: 64 bpm Height: 5'5" Weight: 169 lbs 08/22/2011 Blood Pressure 1: 134/84 Code: 8480-6 BMI: 27.5 Code: 84967-1 Heart Rate 1: 68 bpm Height: 5'5" Respiratory Rate: 16 bpm Weight: 166 lbs 8 oz 06/17/2011 Blood Pressure 1: 120/76 Code: 8480-6 BMI: 27.0 Code: 85580-9 Heart Rate 1: 58 bpm Height: 5'5" [...] Directive data Encounters Encounter Performer Location Codes ([id number]) 43159 EST. PATIENT, LEVEL III Diagnosis: Cough[ICD10: R05] Diagnosis: Acute recurrent maxillary sinusitis[ICD10: J01.01] Suma Alvarado MD, [facility] CPT-4: 69097 09/11/2018 [id number] EST. PATIENT, LEVEL III Diagnosis: Pain in right hand[ICD10: M79.641] Gina Alvarado MD, [facility] CPT-4: 33034 07/12/2018 ([id number]) 03189 EST. PATIENT, LEVEL II Diagnosis: Dysuria[ICD10: R30.0] Suma Alvarado MD, [facility] CPT-4: 01482 05/07/2018 49121 EST. PATIENT, LEVEL IV Diagnosis: Tinnitus, bilateral[ICD10: H93.13] Diagnosis: Other allergic rhinitis[ICD10: J30.89] Gina Alvarado MD, [facility] CPT- 4: 31779 02/21/2018 36111 EST. PATIENT, LEVEL III Diagnosis: Acute laryngopharyngitis[ICD10: J06.0] Diagnosis: Other allergic rhinitis[ICD10: J30.89] Gina Alvarado MD, [facility] CPT- 4: 35824 08/29/2017 ([id number]) 98024 EST. PATIENT, LEVEL IV Diagnosis: Postprocedural hypothyroidism[ICD10: E89.0] Diagnosis: Major depressive disorder, recurrent, moderate[ICD10: F33.1] Diagnosis: Generalized anxiety disorder[ICD10: F41.1] Elina Alvarado MD, [facility] CPT-4: 23391 06/13/2017 ([id number]) 69085 EST. PATIENT, LEVEL IV Diagnosis: Pelvic and perineal pain[ICD10: R10.2] Diagnosis: Acute vaginitis[ICD10: N76.0] Suma Alvarado MD, [facility] CPT-4: 85475 02/16/2017 ([id number]) 51772 EST. PATIENT, LEVEL III Diagnosis: Postprocedural hypothyroidism[ICD10: E89.0] Diagnosis: Major depressive disorder, recurrent, moderate[ICD10: F33.1] Elina Alvarado MD, [facility] CPT-4: 54392 02/06/2017 ([id number]) 64248 EST. PATIENT, LEVEL III Diagnosis: Generalized anxiety disorder[ICD10: F41.1] Elina Alvarado MD, [facility] CPT-4: 78314 10/12/2016 ([id number]) 25861 EST. PATIENT, LEVEL III Diagnosis: Cough[ICD10: R05] Diagnosis: Acute upper respiratory infection, unspecified[ICD10: J06.9] Suma Alvarado MD, [facility] CPT-4: 82169 09/05/2016 ([id number]) 70914 EST. PATIENT, LEVEL III Diagnosis: Generalized anxiety disorder[ICD10: F41.1] Diagnosis: Major depressive disorder, recurrent, moderate[ICD10: F33.1] Diagnosis: Postprocedural hypothyroidism[ICD10: E89.0] Elina Alvarado MD, [facility] CPT-4: 42987 06/21/2016 ([id number]) 66582 EST. PATIENT, LEVEL III Diagnosis: Major depressive disorder, recurrent, moderate[ICD10: F33.1] Elina Alvarado MD, [facility] CPT-4: 00668 05/24/2016 ([id number]) 05549 EST. PATIENT, LEVEL III Diagnosis: Major depressive disorder, recurrent, moderate[ICD10: F33.1] Elina Alvarado MD, [facility] CPT-4: 00701 05/10/2016 ([id number]) 53805 EST. PATIENT, LEVEL III Diagnosis: Generalized anxiety disorder[ICD10: F41.1] Diagnosis: Major depressive disorder, recurrent, moderate[ICD10: F33.1] Suma Alvarado MD, [facility] CPT-4: 02188 05/03/2016 ([id number]) 03010 EST. PATIENT, LEVEL III Diagnosis: Cough[ICD10: R05] Diagnosis: Acute upper respiratory infection, unspecified[ICD10: J06.9] Suma Alvarado MD, [facility] CPT-4: 94133 07/23/2015 ([id number]) 51447 EST. PATIENT, LEVEL III Diagnosis: Hypothyroidism, unspecified[ICD10: E03.9] Diagnosis: Generalized anxiety disorder[ICD10: F41.1] Diagnosis: Other depressive episodes[ICD10: F32.8] Elina Alvarado MD, [facility] CPT-4: 39216 07/06/2015 ([id number]) 46068 EST. PATIENT, LEVEL IV Diagnosis: Generalized anxiety disorder[ICD10: F41.1] Diagnosis: Major depressive disorder, recurrent, unspecified[ICD10: F33.9] Elina Alvarado MD, [facility] CPT-4: 91497 05/26/2015 ([id number]) 15604 EST. PATIENT, LEVEL II Diagnosis: 2Nd degree burn of multiple fingers of right hand not including thumb[ICD9: 944.23] Suma Alvarado MD, [facility] CPT-4: 71081 02/16/2015 ([id number]) 26291 EST. PATIENT, LEVEL IV Diagnosis: Hammertoe[ICD9: 735.4] Diagnosis: Foot pain[ICD9: 729.5] Diagnosis: HYPOTHYROIDISM[ICD9: 244.9] Elina Alvarado MD, [facility] CPT-4: 79585 12/10/2014 ([id number]) 50562 EST. PATIENT, LEVEL III Diagnosis: Urinary incontinence[ICD9: 788.30] Diagnosis: Pelvic pain in female[ICD9: 625.9] Elina Alvarado MD, [facility] CPT- 4: 51728 10/16/2014 ([id number]) 82998 EST. PATIENT, LEVEL III Diagnosis: Urinary incontinence[ICD9: 788.30] Diagnosis: Pelvic pain in female[ICD9: 625.9] Suma Alvarado MD, [facility] CPT- 4: 66748 10/09/2014 ([id number]) 93224 EST. PATIENT, LEVEL III Diagnosis: HYPOTHYROIDISM[ICD9: 244.9] Elina Alvarado MD, [facility] CPT-4: 40589 08/26/2014 ([id number]) 68776 EST. PATIENT, LEVEL III Diagnosis: Neck pain[ICD9: 723.1] Diagnosis: Muscle tension headache[ICD9: 307.81] Suma Alvarado MD, [facility] CPT-4: 59021 05/16/2014 ([id number]) 53153 EST. PATIENT, LEVEL IV Diagnosis: Arthropod bite[ICD9: 919.4] Diagnosis: Poison diana dermatitis[ICD9: 692.6] Diagnosis: Arthralgia[ICD9: 719.40] Diagnosis: Myalgia[ICD9: 729.1] Elina Alvarado MD [facility] CPT-4: 16267 04/23/2014 ([id number]) 15527 EST. PATIENT, LEVEL III Diagnosis: ACUTE URI[ICD9: 465.9] Diagnosis: COUGH[ICD9: 786.2] Suma Alvarado MD [facility] CPT-4: 47756 01/21/2014 ([id number]) 60162 EST. PATIENT, LEVEL III Diagnosis: HYPOTHYROIDISM[ICD9: 244.9] Diagnosis: GENERALIZED ANXIETY DISEASE[ICD9: 300.02] Elina Alvarado MD [facility] CPT-4: 83415 12/05/2013 ([id number]) 00542 EST. PATIENT, LEVEL III Diagnosis: GENERALIZED ANXIETY DISEASE[ICD9: 300.02] Diagnosis: DEPRESSIVE DISORDER NEC[ICD9: 311] Elina Alvarado MD [facility] CPT- 4: 06990 11/05/2013 ([id number]) 37889 EST. PATIENT, LEVEL III Diagnosis: HYPOTHYROIDISM[ICD9: 244.9] Elina Alvarado MD [facility] CPT-4: 21939 10/15/2013 ([id number]) Miscellaneous no charge Diagnosis: Colon cancer screening[ICD9: V76.51] Elina Alvarado MD [facility] CPT- 4: 21811 10/10/2013 ([id number]) 03033 EST. PATIENT, LEVEL IV Diagnosis: HYPOTHYROIDISM[ICD9: 244.9] Diagnosis: DEPRESSIVE DISORDER NEC[ICD9: 311] Diagnosis: GENERALIZED ANXIETY DISEASE[ICD9: 300.02] Diagnosis: HYPERLIPIDEMIA[ICD9: 272.4] Elina Alvarado MD [facility] CPT-4: 52288 03/13/2013 ([id number]) 71573 EST. PATIENT, LEVEL IV Diagnosis: HYPERLIPIDEMIA[ICD9: 272.4] Diagnosis: HYPOTHYROIDISM[ICD9: 244.9] Diagnosis: GENERALIZED ANXIETY DISEASE[ICD9: 300.02] Diagnosis: DEPRESSIVE DISORDER NEC[ICD9: 311] Elina Alvarado MD [facility] CPT- 4: 61297 10/04/2012 ([id number]) 23251 EST. PATIENT, LEVEL III Diagnosis: VICTOR HUGO (generalized anxiety disorder)[ICD9: 300.02] Diagnosis: Chronic depression[ICD9: 311] [facility] CPT-4: 79587 08/22/2011 75269 EST. PATIENT, LEVEL IV Diagnosis: CHEST PAIN NEC[ICD9: 786.59] Diagnosis: HYPERLIPIDEMIA[ICD9: 272.4] Diagnosis: POSTSURGICAL HYPOTHYROIDISM[ICD9: 244.0] [facility] CPT-4: 68593 06/17/2011 Plan of Care Planned Activity Notes Codes Status Date Visit Plan: Sinusitis - Pt has acute infection - pain in face, maxillary region, Pt informed to use decongestant, RX given to patient, sinus rinses also recommended. Call if symptoms do not show improvement. 09/11/2018 Appointment: Suma Choi WPtel: [phone] (15 min) Moderate 09/11/2018 Patient Education: Patient Medication Summary Completed 09/11/2018 Visit Plan: Right hand pain - ongoing - will send for x-ray - The pt is to use prn antiinflammatories to manage acute pain. The patient is to call the office if the pain is worsening or does not improve. 07/12/2018 Appointment: Gina Kern WPtel: [facility] (15 min) Moderate 07/12/2018 Patient Education: Patient Medication Summary Completed 07/12/2018 Care Plan: X-RAY EXAM OF HAND LOINC : 46283-6 Pending 07/12/2018 Visit Plan: Dysuria- UA negative -symptoms resolved -instructed patient to continue with adequate fluid intake and call if symptoms return. Patient verbalized understanding of plan. 05/07/2018 Appointment: Suma Choi WPtel: [phone] (15 min) Moderate 05/07/2018 Patient Education: Patient Medication Summary Completed 05/07/2018 Appointment: Injection 04/24/2018 Patient Education: Patient Medication Summary Completed 04/24/2018 Referral: [facility] Referral Completed 03/22/2018 Visit Plan: Allergies [...] hearing testing 02/21/2018 Appointment: Gina Kern WPtel: [facility] [address] (15 min) Moderate 02/21/2018 Patient Education: Patient Medication Summary Completed 02/21/2018 Care Plan: Referral Order SNOMED-CT : [id number] Pending 02/21/2018 Appointment: Elina Alvarado WPtel: [facility] [address] (15 min) Moderate 12/14/2017 Visit Plan: Medicare [...] Summary Completed 11/28/2017 Appointment: Gina Kern WPtel: [facility] - Annual Wellness Visit 11/21/2017 Visit Plan: [...] spray. 08/29/2017 [facility]ment[phone] (15 min) Moderate 08/29/2017 Patient Education: [...] counseling. 06/13/2017 [facility]ment[phone] [facility] (15 min) Moderate 06/13/2017 Patient Education: Patient Medication Summary Completed 06/13/2017 Appointment: Injection 06/07/2017 Patient Education: Patient Medication Summary Completed 06/07/2017 Visit Plan: Pelvic pain-UA negative-pap done today in the office- will start patient on flagyl for bacterial vaginosis-instructed patient to call if symptoms do not resolve or if any worse. Patient verbalized understanding of plan. 02/16/2017 Appointment: [phone] [phone] [place] (30 min) Complex 02/16/2017 Patient Education: [...] medications. 02/06/2017 Appointment: Elina Alvarado WPtel: [phone] [facility] (15 min) Moderate 02/06/2017 Patient Education: Patient [...] surrogate. 11/17/2016 App[facility]ment: [facility] [phone] [facility] [facility] - Annual Wellness Visit 11/17/2016 Patient Education: [...] current medications. 10/12/2016 Appointment: Elina Alvarado WPtel: [phone] [facility] [place] (15 min) Moderate 10/12/2016 Patient Education: [...] : J06.9 09/05/2016 Appointment: Suma Choi WPtel: [phone] [place] (10 min) Simple 09/05/2016 Patient Education: [...] with lexapro 06/21/2016 Appointment: Elina Alvarado WPtel: [facility] (15 min) Moderate 06/21/2016 Patient Education: Patient Medication Summary Completed 06/21/2016 Visit Plan: Depression - improved with lexapro - continue with current treatment and counseling. 05/24/2016 Appointment: Elina Alvarado WPtel: [facility] [place] (15 min) Moderate 05/24/2016 Patient Education: Patient Medication Summary Completed 05/24/2016 Visit Plan: Depression - improved on the Lexapro - stop ativan - start on xanax 05/10/2016 Appointment: Elina Alvarado WPtel: [facility] [place] (15 min) Moderate 05/10/2016 Patient Education: [...] Summary Completed 05/03/2016 Appointment: [phone] [phone] (15 min) Moderate 02/26/2016 Visit Plan: Medicare [...] and to maintain independece in the home. Bmnueijyrp-pqszcgbaaczu-jkrknp to wellbutrin Pneumonia 13 administered today in [...] and to maintain independece in the home. Ycecvtvhoy-ypctrvmwjnxj-owxrtz to wellbutrin Pneumonia 13 administered today in the office 11/13/2015 Appointment: [facility] - Annual Wellness Visit 11/13/2015 Patient Education: Patient Medication Summary Completed 11/13/2015 Patient Education: Obesity Completed 11/13/2015 Care Plan: SCREENINGMAMMOGRAPHYDIGITAL LOINC : 89602-3 Ordered 11/13/2015 Appointment: Lab Draw 08/10/2015 Visit [...] current medications. 07/06/2015 Appointment: Elina Alvarado WPtel: [id number] ([facility] min) Complex 07/06/2015 Patient Education: [...] upon discharge. 12/10/2014 Appointment: Elina Alvarado WPtel: [address] [place], [place] [phone] Surgical Clearance 12/10/2014 Patient Education: Patient Medication Summary Completed 12/10/2014 Visit Plan: Urinary incontinence and Pelvic discomfort - recommended pt to have evaluation by Dr. Brandt - pt agreeable to referral. Pt is to call if abdominal pain does not improve. 10/16/2014 Appointment: Elina Alvarado WPtel: [address] [place], [place] [phone] Follow up 10/16/2014 Patient Education: Patient Medication Summary Completed 10/16/2014 Care Plan: Referral Order SNOMED-CT : [id number] Ordered 10/16/2014 Patient Education: Patient Medication Summary Completed 10/10/2014 Visit Plan: Pelvic pain-history of mesh implant-recommend CT abd/pelvis to evaluate for any abnormality-refer to Dr Woods if pain does not improve Urinary incontinence-check UA with C&S if indicated 10/09/2014 Patient Education: Patient Medication Summary Completed 10/09/2014 Care Plan: CT ABD & PELV 1/> REGNS LOINC : 15039-5 Ordered 10/09/2014 Visit Plan: Hypothyroidism - pt with chronic hypothyroidism, continue with current medication, will monitor pt to signs or symptoms of lack of adequate supplementation. Pt is to continue with current dose of medication unless directed otherwise. Check labs at regular intervals wither q 3 months or q 6 months based on previous levels of control. 08/26/2014 Appointment: Elina Alvarado WPtel: [address] [place], [place] [phone] Follow up 08/26/2014 Patient Education: Patient Medication [...] with screening. 04/23/2014 Appointment: Elina Alvarado WPtel: [phone] [facility] Sick 04/23/2014 Patient Education: Patient Medication Summary Completed 04/23/2014 Care Plan: Referral Order SNOMED-CT : [id number] Ordered 04/23/2014 Appointment: Nurse Visit 04/15/2014 Patient Education: Patient Medication Summary Completed 04/15/2014 Appointment: Elina Alvarado WPtel: [phone] [facility] [place] Injection 02/11/2014 Patient Education: Patient Medication [...] current treatment. 12/05/2013 Appointment: Elina Alvarado WPtel: [phone] [facility] Follow up 12/05/2013 Patient Education: Patient Medication [...] above medications. 11/05/2013 Appointment: Elina Alvarado WPtel: [facility] Follow up 11/05/2013 Patient Education: Patient Medication [...]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
[2018-12-27] MEDS ORDERED: TETANUS,DIPTH,PERTUSS P/F (BOOSTRIX) 0.5 ML VIAL IM ONE (09:45)
--- OUTSIDE RECORDS SUMMARY | 2018-12-27 09:45 | XMS REPORT | CCD ---
Author Author [facility] Organization [facility] Address [address] [place] [address] Phone Care Team Providers Care Ground Support Equipment Assembler Name Role Phone PP Unavailable CCM Unavailable Summary Purpose Interface Exchange Insurance Providers Payer name Policy type / Coverage type Covered alliance party ID Effective Begin Date Effective End Date WPS Medicare Part B [id number] 2018 Unknown [facility] [id number] 2018 Unknown Family history Sister Diagnosis Age [...] Description Effective Dates Tobacco history SNOMED CT: 7290167 Former smoker quit 2 years ago, social smoker, 1 pack per month 200709/30/2013 Employment Unknown 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 03/13/2013 Marital status Unknown 06/17/[address]: 186862 Currently drinks alcohol 2 beers/week 06/17/2011 Has [...] 02/16/2017 Unknown Pelvic and perineal pain ICD-9: [id number] ICD-10: R10.2 Active 02/16/2017 Unknown Hypothyroidism, unspecified [...] 02/16/2017 Active Pelvic and perineal pain ICD-9: [id number] ICD-10: R10.2 02/16/2017 Active Hypothyroidism, unspecified ICD-9: [...] Start Date Stop Date Status Fill Instructions Augmentin 875 mg-125 mg tablet RxNorm: 412167 1 Tablet(s) PO BID 09/11/2018 09/17/2018 Active Kenalog 40 mg/mL suspension for injection RxNorm: 5326161 1 Milliliter(s) Inj 09/11/2018 09/11/2018 Inactive naproxen 500 mg tablet RxNorm: 386325 1 Tablet(s) PO BID 07/12/2018 07/16/2018 Inactive Synthroid 112 mcg tablet RxNorm: 453161 TAKE ONE TABLET BY MOUTH DAILY 07/02/2018 12/28/2018 Active Lipitor 10 mg tablet RxNorm: 596351 TAKE ONE TABLET BY MOUTH EVERY DAY 06/06/2018 05/31/2019 Active Lexapro 20 mg tablet RxNorm: 503018 TAKE ONE TABLET BY MOUTH DAILY 05/08/2018 12/03/2018 Active Synthroid 100 mcg tablet RxNorm: 992970 TAKE ONE TABLET BY MOUTH EVERY OTHER DAY 04/10/2018 10/06/2018 Active Synthroid 100 mcg tablet RxNorm: 327941 1 Tablet(s) PO every other day 12/11/2017 04/09/2018 Inactive QOD -alternate with 112mcg DISPENSE BRAND NAME Synthroid 112 mcg tablet RxNorm: 038586 1 Tablet(s) every other day 11/28/2017 03/27/2018 Inactive QOD alternate with 100mcg Synthroid 100 mcg tablet RxNorm: 550213 1 Tablet(s) PO every other day 11/28/2017 12/10/2017 Inactive QOD -alternate with 112mcg DISPENSE BRAND NAME Synthroid 100 mcg tablet RxNorm: 701021 1 Tablet(s) PO every other day 11/28/2017 11/27/2017 Inactive QOD -alternate with 112mcg Xanax 0.5 mg tablet RxNorm: 274257 1 Tablet(s) PO QID as needed anxiety 11/14/2017 01/12/2018 Inactive Lexapro 20 mg tablet RxNorm: 358430 TAKE ONE TABLET BY MOUTH DAILY 11/13/2017 05/07/2018 Inactive Xanax 0.5 mg tablet RxNorm: 706846 1 Tablet(s) PO QID as needed anxiety 09/11/2017 11/08/2017 Inactive Tamiflu 75 mg capsule RxNorm: 631336 1 Capsule(s) PO BID 08/29/2017 09/02/2017 Inactive Synthroid 112 mcg tablet RxNorm: 769065 1 Tablet(s) daily 08/14/2017 11/27/2017 Inactive fyi - medication changed, refill x 6 - #30 pills Synthroid 112 mcg tablet RxNorm: 643450 1 Tablet(s) daily 06/13/2017 08/13/2017 Inactive fyi - medication changed, refill x 6 - #30 pills Lexapro 20 mg tablet RxNorm: 260314 TAKE ONE TABLET BY MOUTH DAILY 06/09/2017 11/05/2017 Inactive Synthroid 112 mcg tablet RxNorm: 277621 TAKE 1 TABLET BY MOUTH DAILY EXCEPT TAKE 1/2 TABLET ON MONDAY, MONDAY, AND Monday05/22/2017 06/12/2017 Inactive Lipitor 10 mg tablet RxNorm: 172743 TAKE ONE TABLET BY MOUTH EVERY DAY 03/08/2017 05/31/2018 Inactive Flagyl 500 mg tablet RxNorm: 669026 1 Tablet(s) PO TID 02/16/2017 02/22/2017 Inactive Xanax 0.5 mg tablet RxNorm: 166763 1 Tablet(s) PO QID as needed anxiety 12/23/2016 03/21/2017 Inactive Synthroid 112 mcg tablet RxNorm: 430448 TAKE 1 TABLET BY MOUTH DAILY EXCEPT FOR TAKE 1/2 TABLET ON MONDAY, MONDAY, AND Monday12/23/2016 04/13/2017 Inactive Lexapro 20 mg tablet RxNorm: 806182 TAKE ONE TABLET BY MOUTH DAILY 11/29/2016 05/27/2017 Inactive Zithromax Z-Que 250 mg tablet RxNorm: 082050 1 Tablet(s) PO UD 09/05/2016 09/09/2016 Inactive zpack Kenalog 40 mg/mL suspension for injection RxNorm: 1243429 1 Milliliter(s) Inj 09/05/2016 09/05/2016 Inactive Lipitor 10 mg tablet RxNorm: 777095 TAKE ONE TABLET BY MOUTH EVERY DAY 08/30/2016 02/25/2017 Inactive Ativan 1 mg tablet RxNorm: 715112 1 Tablet(s) PO Q6 PRN as needed TAKE ONE TABLET BY MOUTH THREE TIMES A DAY OR EVERY 6 HOURS NEEDED FOR ANXIETY 08/30/2016 12/22/2016 Inactive Synthroid 112 mcg tablet RxNorm: 437636 1 Tablet(s) PO daily except one-half tab on /Mon08/23/2016 12/12/2016 Inactive will refill when needed Lexapro 20 mg tablet RxNorm: 111583 TAKE ONE TABLET BY MOUTH DAILY 08/02/2016 11/28/2016 Inactive Synthroid 112 mcg tablet RxNorm: 249527 1 Tablet(s) PO daily except 1/2 tab wed and sat 05/25/2016 08/22/2016 Inactive will refill when needed Xanax 0.5 mg tablet RxNorm: 471861 1 Tablet(s) PO QID as needed anxiety 05/10/2016 08/29/2016 Inactive Lexapro 20 mg tablet RxNorm: 214071 1 Tablet(s) PO daily 05/03/2016 07/31/2016 Inactive 1/2 tab x 1 week then increase to a full pill daily buspirone 5 mg tablet RxNorm: 938489 TAKE ONE-HALF TABLET BY MOUTH TWICE A DAY 03/15/2016 05/02/2016 Inactive Synthroid 112 mcg tablet RxNorm: 524973 1 Tablet(s) PO daily 02/25/2016 05/24/2016 Inactive Ativan 1 mg tablet RxNorm: 083846 Tablet(s) TAKE ONE TABLET BY MOUTH THREE TIMES A DAY OR EVERY 6 HOURS NEEDED FOR ANXIETY 02/04/2016 05/08/2016 Inactive Synthroid 125 mcg tablet RxNorm: 956424 TAKE ONE TABLET BY MOUTH TWICE WEEKLY 01/11/2016 02/24/2016 Inactive Synthroid 112 mcg tablet RxNorm: 787484 TAKE ONE TABLET BY MOUTH FIVE DAYS A WEEK 01/11/2016 02/24/2016 Inactive Wellbutrin 75 mg tablet RxNorm: 770263 TAKE ONE TABLET BY MOUTH TWICE A DAY 01/11/2016 05/02/2016 Inactive Ativan 1 mg tablet RxNorm: 509378 TAKE ONE TABLET BY MOUTH THREE TIMES A DAY OR EVERY 6 HOURS NEEDED 12/03/2015 12/27/2015 Inactive Lipitor 10 mg tablet RxNorm: 141706 TAKE ONE TABLET BY MOUTH EVERY DAY 12/03/2015 08/28/2016 Inactive Ativan 1 mg tablet RxNorm: 516008 Tablet(s) TAKE ONE TABLET BY MOUTH THREE TIMES A DAY AND TAKE ONE TABLET BY MOUTH EVERY 6 HOURS NEEDED FOR ANXIETY 12/03/2015 12/02/2015 Inactive (Response to an electronic controlled substance refill request - RxReferenceNumber: [id number]) Wellbutrin 75 mg tablet RxNorm: 135292 1 Tablet(s) PO BID 11/13/2015 01/10/2016 Inactive Ativan 1 mg tablet RxNorm: 392782 Tablet(s) TAKE ONE TABLET BY MOUTH THREE TIMES A DAY AND TAKE ONE TABLET BY MOUTH EVERY 6 HOURS NEEDED FOR ANXIETY 09/23/2015 10/30/2015 Inactive (Response to an electronic controlled substance refill request - RxReferenceNumber: [id number]) buspirone 5 mg tablet RxNorm: 207680 TAKE ONE-HALF TABLET BY MOUTH TWICE A DAY 08/18/2015 03/01/2016 Inactive ceftriaxone 500 mg solution for injection RxNorm: 8038964 Inj 07/23/2015 07/23/2015 Inactive Zithromax Z-Que 250 mg tablet RxNorm: 156058 1 Tablet(s) PO UD 07/23/2015 07/27/2015 Inactive ZPACK buspirone 5 mg tablet RxNorm: 455054 1 Tablet(s) PO daily 07/06/2015 10/03/2015 Inactive buspirone 5 mg tablet RxNorm: 199622 1/2 Tablet(s) PO BID 05/26/2015 07/05/2015 Inactive Lipitor 10 mg tablet RxNorm: 268622 TAKE ONE TABLET BY MOUTH EVERY DAY 04/23/2015 10/19/2015 Inactive Ativan 1 mg tablet RxNorm: 543796 Tablet(s) TAKE ONE TABLET BY MOUTH THREE TIMES A DAY AND TAKE ONE TABLET BY MOUTH EVERY 6 HOURS NEEDED FOR ANXIETY 02/23/2015 04/01/2015 Inactive (Response to an electronic controlled substance refill request - RxReferenceNumber: [id number]) Synthroid 125 mcg tablet RxNorm: 655119 1 Tablet(s) PO UD twice weekly 12/10/2014 06/07/2015 Inactive Synthroid 112 mcg tablet RxNorm: 567326 1 Tablet(s) PO UD TAKE ONE TABLET BY MOUTH 5 days a week 12/10/2014 12/04/2015 Inactive Lexapro 20 mg tablet RxNorm: 002292 1 Tablet(s) PO daily 11/26/2014 11/12/2015 Inactive Lipitor 10 mg tablet RxNorm: 095026 TAKE ONE TABLET BY MOUTH EVERY DAY 10/21/2014 04/18/2015 Inactive amoxicillin 500 mg capsule RxNorm: 699810 1 Capsule(s) PO TID 10/15/2014 10/21/2014 Inactive take probiotic BID x 7 days during abt period amoxicillin 500 mg capsule RxNorm: 822762 1 Capsule(s) PO TID 10/15/2014 10/14/2014 Inactive take probiotic BID x 7 days during abt period Ativan 1 mg tablet RxNorm: 394517 TAKE ONE TABLET BY MOUTH THREE TIMES A DAY AND TAKE ONE TABLET BY MOUTH EVERY 6 HOURS NEEDED FOR ANXIETY 08/21/2014 09/28/2014 Inactive (Response to an electronic controlled substance refill request [id number]) Ativan 1 mg tablet RxNorm: 462987 1 Tablet(s) PO tid and Q6 PRN as needed 08/18/2014 08/21/2014 Inactive doxycycline hyclate 100 mg tablet RxNorm: 219326 1 Tablet(s) PO BID 04/23/2014 05/25/2015 Inactive prednisone 10 mg tablets in a dose pack RxNorm: 606092 1 Tablet(s) PO 02/14/2014 05/25/2015 Inactive Kenalog 40 mg/mL suspension for injection RxNorm: 4377440 1 Milliliter(s) Inj 02/11/2014 02/11/2014 Inactive Keflex 500 mg capsule RxNorm: 062496 1 Capsule(s) PO TID 01/21/2014 01/27/2014 Inactive Kenalog 40 mg/mL suspension for injection RxNorm: 5175226 Milliliter(s) Inj 01/21/2014 01/21/2014 Inactive Synthroid 112 mcg tablet RxNorm: 187355 1 Tablet(s) PO daily TAKE ONE TABLET BY MOUTH EVERY DAY 12/05/2013 11/29/2014 Inactive Ativan 1 mg tablet RxNorm: 365413 1 Tablet(s) PO Q6 PRN 11/05/2013 02/02/2014 Inactive Lexapro 20 mg tablet RxNorm: 474003 1 Tablet(s) PO daily 11/05/2013 11/04/2013 Inactive Lexapro 20 mg tablet RxNorm: 432676 1 Tablet(s) PO daily 11/05/2013 10/30/2014 Inactive Lipitor 10 mg tablet RxNorm: 480454 1 Tablet(s) PO QPM TAKE ONE TABLET BY MOUTH EVERY DAY 09/30/2013 10/20/2014 Inactive Lexapro 20 mg tablet RxNorm: 764393 1 Tablet(s) PO daily 09/30/2013 11/04/2013 Inactive Synthroid 125 mcg tablet RxNorm: 007467 1 Tablet(s) PO daily 09/10/2013 12/04/2013 Inactive Synthroid 100 mcg tablet RxNorm: 429732 1 Tablet(s) PO daily TAKE ONE TABLET BY MOUTH EVERY DAY 09/06/2013 09/09/2013 Inactive Lipitor 10 mg tablet RxNorm: 269294 Tablet(s) PO TAKE ONE TABLET BY MOUTH EVERY DAY 08/15/2013 09/29/2013 Inactive Synthroid 100 mcg tablet RxNorm: 305030 1 Tablet(s) PO daily TAKE ONE TABLET BY MOUTH EVERY DAY 04/26/2013 09/05/2013 Inactive Ativan 1 mg tablet RxNorm: 713585 1 Tablet(s) PO Q6 PRN 03/13/2013 No Stop Date Active Synthroid 100 mcg tablet RxNorm: 378199 1 Tablet(s) PO daily TAKE ONE TABLET BY MOUTH EVERY DAY 03/13/2013 04/25/2013 Inactive Lexapro 20 mg tablet RxNorm: 355205 1/2 Tablet(s) PO BID 03/13/2013 09/29/2013 Inactive Synthroid 112 mcg tablet RxNorm: 670037 Tablet(s) PO TAKE ONE TABLET BY MOUTH EVERY DAY 01/08/2013 03/12/2013 Inactive Lexapro 20 mg tablet RxNorm: 434559 Tablet(s) PO TAKE 1/2 TABLET EVERY MORNING AND TAKE ONE TABLET BY MOUTH AT BEDTIME 10/18/2012 03/12/2013 Inactive Lipitor 20 mg tablet RxNorm: 052915 1/2 Tablet(s) PO daily 08/20/2012 02/04/2013 Inactive Lipitor 10 mg tablet RxNorm: 956173 1 Tablet(s) PO daily 05/23/2012 08/19/2012 Inactive Synthroid 112 mcg tablet RxNorm: 977404 1 Tablet(s) PO daily 12/16/2011 01/07/2013 Inactive Synthroid 112 mcg Tab RxNorm: 285526 1 Tablet(s) PO daily 12/16/2011 12/15/2011 Inactive Lipitor 10 mg tablet RxNorm: 952459 1 Tablet(s) PO daily 12/15/2011 05/22/2012 Inactive Synthroid 112 mcg Tab RxNorm: 167843 1 Tablet(s) PO every other day 11/09/2011 12/15/2011 Inactive every other day Synthroid 112 mcg Tab RxNorm: 259027 1 Tablet(s) PO every other day 10/21/2011 11/08/2011 Inactive every other day Synthroid 125 mcg Tab RxNorm: 724495 1 Tablet(s) PO every other day 10/21/2011 12/16/2011 Inactive every other day Lexapro 20 mg tablet RxNorm: 117863 1.5 Tablet(s) PO daily 1/2 pill in AM and 1 pill at bedtime 09/22/2011 04/18/2012 Inactive 1/2 q am 1 q hs diazepam 5 mg Tab RxNorm: 459974 1 Tablet(s) PO daily 1 tab bid prn 09/21/2011 05/17/2012 Inactive Lexapro 20 mg Tab RxNorm: 398923 1.5 Tablet(s) PO daily 1/2 pill in AM and 1 pill at bedtime 08/22/2011 09/21/2011 Inactive diazepam 5 mg Tab RxNorm: 010624 1 Tablet(s) PO daily 1 tab bid prn 06/20/2011 09/20/2011 Inactive diazepam 5 mg Tab RxNorm: 684851 1 Tablet(s) PO daily 1 tab bid prn 06/20/2011 06/19/2011 Inactive diazepam 5 mg Tab RxNorm: 252435 1 Tablet(s) PO daily 1 tab bid prn 06/17/2011 06/19/2011 Inactive Lipitor 10 mg Tab RxNorm: 445201 1 Tablet(s) PO daily 05/31/2011 11/26/2011 Inactive diazepam 5 mg Tab RxNorm: 864465 1 Tablet(s) PO BID 1 tab bid prn 04/21/2011 05/20/2011 Inactive Calcium 600 + D(3) Oral RxNorm: Oral No Start Date Active Menest 0.625 mg Tab RxNorm: 991045 1 Tablet(s) PO daily No Start Date 06/16/2011 Inactive Synthroid 125 mcg tablet RxNorm: 852996 Tablet(s) PO No Start Date 09/09/2013 Inactive Ativan 1 mg tablet RxNorm: 717667 1 Tablet(s) PO Q6 PRN No Start Date 08/21/2011 Inactive aspirin 81 mg Tab, Delayed Release RxNorm: 1315290 1 Tablet(s) PO daily No Start Date 09/29/2013 Inactive Lexapro 10 mg Tab RxNorm: 459620 1 Tablet(s) PO daily No Start Date 08/22/2011 Inactive prednisone 10 mg tablets in a dose pack RxNorm: 321510 1 Tablet(s) PO No Start Date 02/13/2014 Inactive Synthroid 112 mcg Tab RxNorm: 345331 Tablet(s) PO /thurs/sat/sun No Start Date 10/20/2011 Inactive lorazepam 1 mg Tab RxNorm: 119481 Tablet(s) PO Q6 PRN No Start Date 11/04/2013 Inactive Lipitor 20 mg tablet RxNorm: 057674 1/2 Tablet(s) PO daily No Start Date 08/20/2012 Inactive Vitamin D2 oral RxNorm: oral No Start Date 09/29/2013 Inactive Synthroid 125 mcg Tab RxNorm: 674972 1 Tablet(s) PO No Start Date 10/20/2011 Inactive synthroid 112 mcg mon Medication Administered Medication Codes Instructions Start Date Status Kenalog 40 mg/mL suspension for injection RxNorm: 2110678 1Milliliter 09/11/2018 No longer Active Kenalog 40 mg/mL suspension for injection RxNorm: 7429977 1Milliliter 09/05/2016 No longer Active ceftriaxone 500 mg solution for injection RxNorm: 4092071 07/23/2015 No longer Active Kenalog 40 mg/mL suspension for injection RxNorm: 7328959 1Milliliter 02/11/2014 No longer Active Kenalog 40 mg/mL suspension for injection RxNorm: 9839761 Milliliter 01/21/2014 No longer Active Immunizations Vaccine [...] Pelvic and perineal pain ICD-10: R10.2 ICD-9: [id number] 02/16/2017 Acute vaginitis ICD-10: N76.0 ICD-9: 623.5 [...] 28.0 % 11/23/2017 Cbc With Differential Ord2 [place]% 9.0 % 11/23/2017 Cbc With Differential Ord2 [...] 1.77 K/ul 11/23/2017 Cbc With Differential Ord2 [place] ABS# 0.6 K/ul 11/23/2017 Cbc With Differential Ord2 Eos ABS# 0.2 K/ul 11/23/2017 Cbc With Differential Ord2 Baso ABS# 0.0 K/ul 11/23/2017 Tsh Ord6 TSH (3rd IS) 0.17 uIU/mL 11/23/2017 Free T4 Opf514 FREE T4 1.10 ng/dL 11/23/2017 Comp Metabolic Jzw228 NA 142 mEq/L 11/23/2017 Comp Metabolic Ptw651 K 4.4 mEq/L 11/23/2017 Comp Metabolic Lfd733 CL 109 mEq/L 11/23/2017 Comp Metabolic Sam492 CO2 28.0 mEq/L 11/23/2017 Comp Metabolic Alf808 ANION GAP 9 11/23/2017 Comp Metabolic Gef345 GLUCOSE 106 mg/dL 11/23/2017 Comp Metabolic Azr672 Creat 0.9 mg/dL 11/23/2017 Comp Metabolic Oej735 eGFR 68 ml/min/1.73m2 11/23/2017 Comp Metabolic Ohr788 BUN 17 mg/dL 11/23/2017 Comp Metabolic Pjo493 B/C Ratio 19.3 Ratio 11/23/2017 Comp Metabolic Upo762 CALCIUM 9.0 mg/dL 11/23/2017 Comp Metabolic Mdm365 ALK PHOS 65 U/L 11/23/2017 Comp Metabolic Ixv407 AST(SGOT) 18 U/L 11/23/2017 Comp Metabolic Zlt732 ALT(SGPT) 16 U/L 11/23/2017 Comp Metabolic Rkp833 BILI T 0.5 mg/dL 11/23/2017 Comp Metabolic Hlh091 ALBUMIN 4.2 g/dL 11/23/2017 Comp Metabolic Jgk478 TPRO 6.5 g/dL 11/23/2017 Comp Metabolic Ckp532 GLOB 2.3 g/dL 11/23/2017 Comp Metabolic Bza188 A/G Ratio 1.8 Ratio 11/23/2017 Comp Metabolic Wpm314 Osmo 285 mOsmo 11/23/2017 Lipid Ord30 CHOL [...] hTSH II 4.83 uIU/mL 06/07/2017 Comp Metabolic Jjs490 NA 141 mEq/L 06/07/2017 Comp Metabolic Rhc989 K 4.3 mEq/L 06/07/2017 Comp Metabolic Mbk367 CL 106 mEq/L 06/07/2017 Comp Metabolic Bpq810 CO2 26.0 mEq/L 06/07/2017 Comp Metabolic Hhd732 ANION GAP 13 06/07/2017 Comp Metabolic Rcd227 GLUCOSE 93 mg/dL 06/07/2017 Comp Metabolic Mjf374 Creat 0.9 mg/dL 06/07/2017 Comp Metabolic Sjs168 eGFR 65 ml/min/1.73m2 06/07/2017 Comp Metabolic Ikr071 BUN 10 mg/dL 06/07/2017 Comp Metabolic Kor285 B/C Ratio 11.0 Ratio 06/07/2017 Comp Metabolic Yuk024 CALCIUM 8.9 mg/dL 06/07/2017 Comp Metabolic Bgq880 ALK PHOS 69 U/L 06/07/2017 Comp Metabolic Wxt835 AST(SGOT) 18 U/L 06/07/2017 Comp Metabolic Ylt388 ALT(SGPT) 15 U/L 06/07/2017 Comp Metabolic Kmc589 BILI T 0.5 mg/dL 06/07/2017 Comp Metabolic Xzw197 ALBUMIN 4.1 g/dL 06/07/2017 Comp Metabolic Jin025 TPRO 6.5 g/dL 06/07/2017 Comp Metabolic Bni355 GLOB 2.4 g/dL 06/07/2017 Comp Metabolic Gpw911 A/G Ratio 1.7 Ratio 06/07/2017 Comp Metabolic Zdz839 Osmo 280 mOsmo 06/07/2017 Cbc With Differential [...] 30.1 % 06/07/2017 Cbc With Differential Ord2 [place]% 9.1 % 06/07/2017 Cbc With Differential Ord2 [...] 1.62 K/ul 06/07/2017 Cbc With Differential Ord2 [place] ABS# 0.5 K/ul 06/07/2017 Cbc With Differential Ord2 Eos ABS# 0.2 K/ul 06/07/2017 Cbc With Differential Ord2 Baso ABS# 0.0 K/ul 06/07/2017 Free T4 Qyi039 FREE T4 0.92 ng/dL 06/07/2017 Tsh Ord6 hTSH II 1.07 uIU/mL 11/17/2016 Free T4 Uor363 FREE T4 1.02 ng/dL 11/17/2016 Lipid Ord30 CHOL 195 mg/dL 10/13/2016 Lipid Ord30 HDL 68.0 mg/dl 10/13/2016 Lipid Ord30 TRIG 69 mg/dL 10/13/2016 Lipid Ord30 LDL 113 mg/dL 10/13/2016 Lipid Ord30 C/HDL 2.9 Ratio 10/13/2016 Comp Metabolic Cst947 NA 138 mEq/L 10/13/2016 Comp Metabolic Con154 K 4.4 mEq/L 10/13/2016 Comp Metabolic Kso922 CL 102 mEq/L 10/13/2016 Comp Metabolic Dlf045 CO2 29.0 mEq/L 10/13/2016 Comp Metabolic Psl659 ANION GAP 11 10/13/2016 Comp Metabolic Xtc595 GLUCOSE 85 mg/dL 10/13/2016 Comp Metabolic Dao128 Creat 1.0 mg/dL 10/13/2016 Comp Metabolic Izp310 eGFR 59 ml/min/1.73m2 10/13/2016 Comp Metabolic Kov305 BUN 21 mg/dL 10/13/2016 Comp Metabolic Dfq686 B/C Ratio 21.2 Ratio 10/13/2016 Comp Metabolic Mrr435 CALCIUM 9.7 mg/dL 10/13/2016 Comp Metabolic Guo893 ALK PHOS 70 U/L 10/13/2016 Comp Metabolic Pdo722 AST(SGOT) 17 U/L 10/13/2016 Comp Metabolic Zab369 ALT(SGPT) 14 U/L 10/13/2016 Comp Metabolic Zbt878 BILI T 0.9 mg/dL 10/13/2016 Comp Metabolic Mvm445 ALBUMIN 4.4 g/dL 10/13/2016 Comp Metabolic Keb338 TPRO 7.1 g/dL 10/13/2016 Comp Metabolic Xdl094 GLOB 2.7 g/dL 10/13/2016 Comp Metabolic Gmy370 A/G Ratio 1.6 Ratio 10/13/2016 Comp Metabolic Tjw602 Osmo 278 mOsmo 10/13/2016 Cbc With Differential [...] 23.8 % 10/13/2016 Cbc With Differential Ord2 [place]% 7.7 % 10/13/2016 Cbc With Differential Ord2 [...] 1.43 K/ul 10/13/2016 Cbc With Differential Ord2 [place] ABS# 0.5 K/ul 10/13/2016 Cbc With Differential Ord2 Eos ABS# 0.1 K/ul 10/13/2016 Cbc With Differential Ord2 Baso ABS# 0.0 K/ul 10/13/2016 Free T4 Wln517 FREE T4 1.31 ng/dL 08/17/2016 Tsh Ord6 hTSH II 0.64 uIU/mL 08/17/2016 Free T4 Zgj516 FREE T4 1.49 ng/dL 05/10/2016 Comp Metabolic Eqd086 NA 139 mEq/L 05/10/2016 Comp Metabolic Qdr784 K 4.5 mEq/L 05/10/2016 Comp Metabolic Gto667 CL 104 mEq/L 05/10/2016 Comp Metabolic Cfc065 CO2 24.0 mEq/L 05/10/2016 Comp Metabolic Obk410 ANION GAP 16 05/10/2016 Comp Metabolic Npv532 GLUCOSE 87 mg/dL 05/10/2016 Comp Metabolic Biz434 Creat 0.9 mg/dL 05/10/2016 Comp Metabolic Vkw526 eGFR 71 ml/min/1.73m2 05/10/2016 Comp Metabolic Zrn064 BUN 12 mg/dL 05/10/2016 Comp Metabolic Ien084 B/C Ratio 14.1 Ratio 05/10/2016 Comp Metabolic Fqf934 CALCIUM 9.6 mg/dL 05/10/2016 Comp Metabolic Lqu885 ALK PHOS 89 U/L 05/10/2016 Comp Metabolic Vyx680 AST(SGOT) 17 U/L 05/10/2016 Comp Metabolic Gcp973 ALT(SGPT) 17 U/L 05/10/2016 Comp Metabolic Mgv799 BILI T 0.9 mg/dL 05/10/2016 Comp Metabolic Dak751 ALBUMIN 4.2 g/dL 05/10/2016 Comp Metabolic Ynr411 TPRO 6.7 g/dL 05/10/2016 Comp Metabolic Pkf849 GLOB 2.5 g/dL 05/10/2016 Comp Metabolic Izo958 A/G Ratio 1.7 Ratio 05/10/2016 Comp Metabolic Xvb963 Osmo 277 mOsmo 05/10/2016 Cbc With Differential [...] 85.5 fl 05/10/2016 Cbc With Differential Ord2 [place]% 8.3 % 05/10/2016 Cbc With Differential Ord2 [...] 1.57 K/ul 05/10/2016 Cbc With Differential Ord2 [place] ABS# 0.6 K/ul 05/10/2016 Cbc With Differential Ord2 Eos ABS# 0.2 K/ul 05/10/2016 Cbc With Differential Ord2 Baso ABS# 0.0 K/ul 05/10/2016 Tsh Ord6 hTSH II 0.03 uIU/mL 05/10/2016 Free T4 Mme306 FREE T4 1.67 ng/dL 02/18/2016 Tsh Ord6 hTSH II 0.06 uIU/mL 02/18/2016 Comp Metabolic Qln146 NA 138 mEq/L 02/18/2016 Comp Metabolic Jub867 K 4.5 mEq/L 02/18/2016 Comp Metabolic Aqr097 CL 104 mEq/L 02/18/2016 Comp Metabolic Jik598 CO2 26.0 mEq/L 02/18/2016 Comp Metabolic Wfo937 ANION GAP 13 02/18/2016 Comp Metabolic Afj407 GLUCOSE 88 mg/dL 02/18/2016 Comp Metabolic Zpu483 Creat 0.9 mg/dL 02/18/2016 Comp Metabolic Qem210 eGFR 69 ml/min/1.73m2 02/18/2016 Comp Metabolic Rna129 BUN 14 mg/dL 02/18/2016 Comp Metabolic Gyc990 B/C Ratio 16.1 Ratio 02/18/2016 Comp Metabolic Twc914 CALCIUM 9.4 mg/dL 02/18/2016 Comp Metabolic Rka463 ALK PHOS 95 U/L 02/18/2016 Comp Metabolic Vpg197 AST(SGOT) 19 U/L 02/18/2016 Comp Metabolic Alx299 ALT(SGPT) 18 U/L 02/18/2016 Comp Metabolic Wpb374 BILI T 0.7 mg/dL 02/18/2016 Comp Metabolic Jge117 ALBUMIN 4.4 g/dL 02/18/2016 Comp Metabolic Uso241 TPRO 6.9 g/dL 02/18/2016 Comp Metabolic Kqq795 GLOB 2.5 g/dL 02/18/2016 Comp Metabolic Llo016 A/G Ratio 1.7 Ratio 02/18/2016 Comp Metabolic Ndx617 Osmo 276 mOsmo 02/18/2016 Lipid Ord30 CHOL [...] 18.8 % 02/18/2016 Cbc With Differential Ord2 [place]% 10.5 % 02/18/2016 Cbc With Differential Ord2 [...] 1.08 K/ul 02/18/2016 Cbc With Differential Ord2 [place] ABS# 0.6 K/ul 02/18/2016 Cbc With Differential Ord2 Eos ABS# 0.0 K/ul 02/18/2016 Cbc With Differential Ord2 Baso ABS# 0.0 K/ul 02/18/2016 Comp Metabolic Nxl692 NA 136 mEq/L 06/08/2015 Comp Metabolic Jgv237 K 3.9 mEq/L 06/08/2015 Comp Metabolic Idz760 CL 103 mEq/L 06/08/2015 Comp Metabolic Cnx041 CO2 25.0 mEq/L 06/08/2015 Comp Metabolic Mmw401 ANION GAP 12 06/08/2015 Comp Metabolic Ekj704 GLUCOSE 91 mg/dL 06/08/2015 Comp Metabolic Qrh253 Creat 0.9 mg/dL 06/08/2015 Comp Metabolic Atk628 eGFR 68 ml/min/1.73m2 06/08/2015 Comp Metabolic Gja072 BUN 10 mg/dL 06/08/2015 Comp Metabolic Gwb855 B/C Ratio 11.4 Ratio 06/08/2015 Comp Metabolic Plt864 CALCIUM 9.4 mg/dL 06/08/2015 Comp Metabolic Hmy645 ALK PHOS 88 U/L 06/08/2015 Comp Metabolic Djs369 AST(SGOT) 20 U/L 06/08/2015 Comp Metabolic Bln914 ALT(SGPT) 18 U/L 06/08/2015 Comp Metabolic Pro385 BILI T 0.8 mg/dL 06/08/2015 Comp Metabolic Jqr217 ALBUMIN 4.4 g/dL 06/08/2015 Comp Metabolic Qlb360 TPRO 7.0 g/dL 06/08/2015 Comp Metabolic Mfe479 GLOB 2.6 g/dL 06/08/2015 Comp Metabolic Nyo500 A/G Ratio 1.7 Ratio 06/08/2015 Comp Metabolic Ggj045 Osmo 271 mOsmo 06/08/2015 Tsh Ord6 hTSH [...] Ord2 RDW 14.4 % 06/08/2015 LYME EIA [id number] LYME EIA 0.24 04/25/2014 TULAREM AB [id number] TULAREM AB <1:20 04/24/2014 RMSF IFA [id number] IGG RMSF <1:16 04/24/2014 RMSF IFA [id number] IGM RMSF <1:10 04/24/2014 E CHAFF AB [id number] IGG E CHFF <1:16 04/24/2014 E CHAFF AB [id number] IGM E CHFF <1:10 04/24/2014 ICT OCCULT [id number] ICT OCCULT NEG 10/11/2013 Review of Systems [...] [id number] 09/11/2018 URINALYSIS NONAUTO W/O SCOPE CPT-4: 27985 05/07/2018 ADMIN INFLUENZA VIRUS VAC CPT-4: G0008 04/24/2018 FLU VACC PRSV FREE INC ANTIG CPT-4: 00967 04/24/2018 PPPS, SUBSEQ VISIT CPT- 4: G0439 11/28/2017 ADMIN INFLUENZA VIRUS VAC CPT-4: G0008 06/07/2017 FLU VACC PRSV FREE INC ANTIG CPT-4: 29422 06/07/2017 PPPS, SUBSEQ VISIT CPT- 4: G0439 11/17/2016 TRIAMCINOLONE ACET INJ NOS CPT-4: J3301 09/05/2016 PPPS, SUBSEQ VISIT CPT- 4: G0439 11/13/2015 PNEUMOCOCCAL VACC 13 STEPHANIE IM Formatting Model/CDA Sections, Assigned to/Lila Colon SNOMED CT: 65571921 CPT-4: 60870Mwhzhoc 11/13/2015 ADMIN PNEUMOCOCCAL VACCINE SNOMED CT: 77025018 CPT-4: G0009 11/13/2015 ROCEPHIN, PER 250 MG CPT- 4: J0696 07/23/2015 URINALYSIS NONAUTO W/O SCOPE CPT-4: 46340 10/10/2014 ROUTINE VENIPUNCTURE CPT- 4: 77837 04/23/2014 Pneumococcal Polysaccharide Vaccine, 23-Valent, Ad CPT-4: 54530 04/15/2014 ADMIN INFLUENZA VIRUS VAC CPT-4: G0008 04/15/2014 FLU VAC NO PRSV 4 STEPHANIE 3 YRS+ CPT-4: 54851 04/15/2014 ADMIN PNEUMOCOCCAL VACCINE SNOMED CT: 56120921 CPT-4: G0009 04/15/2014 THER/PROPH/DIAG INJ SC/IM CPT-4: 08983 02/11/2014 TRIAMCINOLONE ACET INJ NOS CPT-4: J3301 02/11/2014 TRIAMCINOLONE ACET INJ NOS CPT-4: J3301 01/21/2014 INITIAL PREVENTIVE EXAM CPT-4: G0402 09/30/2013 PRESCRIP TRANSMIT VIA ERX SY CPT-4: G8553 03/13/2013 Vital Signs Date Vital 09/11/2018 Blood Pressure 1: 114/76 Code: 8480-6 BMI: 29.3 Code: 43387-3 Heart Rate 1: 80 bpm Height: 5'5" SpO2: 95% Temperature: 36.3 (C) / 97.3 (F) Weight: 176 lbs 07/12/2018 Blood Pressure 1: 126/76 Code: 8480-6 BMI: 29.3 Code: 84100-4 Heart Rate 1: 70 bpm Height: 5'5" SpO2: 96% Weight: 176 lbs 05/07/2018 Blood Pressure 1: 118/72 Code: 8480-6 BMI: 29.5 Code: 81712-1 Heart Rate 1: 71 bpm Height: 5'5" SpO2: 98% Weight: 177 lbs 02/21/2018 Blood Pressure 1: 120/78 Code: 8480-6 BMI: 29.0 Code: 65591-2 Heart Rate 1: 68 bpm Height: 5'5" SpO2: 96% Weight: 174 lbs 11/28/2017 Blood Pressure 1: 122/98 Code: 8480-6 BMI: 31.0 Code: 44529-1 Heart Rate 1: 89 bpm Height: 5'5" SpO2: 98% Waist Measure (cm): 91 cm Weight: 186 lbs 08/29/2017 Blood Pressure 1: 146/80 Code: 8480-6 BMI: 29.5 Code: 80852-7 Heart Rate 1: 68 bpm Height: 5'5" SpO2: 98% Temperature: 36.6 (C) / 97.8 (F) Weight: 177 lbs 06/13/2017 Blood Pressure 1: 138/76 Code: 8480-6 BMI: 29.6 Code: 92119-3 Heart Rate 1: 63 bpm Height: 5'5" SpO2: 95% Weight: 178 lbs 02/16/2017 Blood Pressure 1: 128/80 Code: 8480-6 BMI: 29.9 Code: 98942-1 Heart Rate 1: 77 bpm Height: 5'5" SpO2: 96% Weight: 179 lbs 8 oz 02/06/2017 Blood Pressure 1: 140/80 Code: 8480-6 BMI: 29.8 Code: 53228-5 Heart Rate 1: 72 bpm Height: 5'5" SpO2: 97% Weight: 179 lbs 11/17/2016 Blood Pressure 1: 130/72 Code: 8480-6 BMI: 29.6 Code: 50789-6 Heart Rate 1: 62 bpm Height: 5'5" SpO2: 98% Waist Measure (cm): 91 cm Weight: 178 lbs 10/12/2016 Blood Pressure 1: 128/78 Code: 8480-6 BMI: 28.5 Code: 24654-2 Heart Rate 1: 62 bpm Height: 5'5" SpO2: 97% Weight: 171 lbs 09/05/2016 Blood Pressure 1: 122/70 Code: 8480-6 BMI: 28.0 Code: 44764-3 Heart Rate 1: 65 bpm Height: 5'5" SpO2: 94% Weight: 168 lbs 06/21/2016 Blood Pressure 1: 120/82 Code: 8480-6 BMI: 28.3 Code: 87307-9 Heart Rate 1: 65 bpm Height: 5'5" SpO2: 97% Weight: 170 lbs 05/24/2016 Blood Pressure 1: 136/80 Code: 8480-6 BMI: 28.1 Code: 24286-5 Heart Rate 1: 71 bpm Height: 5'5" SpO2: 96% Weight: 169 lbs 05/10/2016 Blood Pressure 1: 120/82 Code: 8480-6 BMI: 27.6 Code: 29125-7 Heart Rate 1: 86 bpm Height: 5'5" SpO2: 95% Weight: 166 lbs 05/03/2016 Blood Pressure 1: 124/78 Code: 8480-6 BMI: 28.1 Code: 99978-5 Heart Rate 1: 88 bpm Height: 5'5" SpO2: 97% Weight: 169 lbs 11/13/2015 Blood Pressure 1: 130/60 Code: 8480-6 BMI: 30.0 Code: 12064-8 Heart Rate 1: 7 bpm Height: 5'5" Waist Measure (cm): 97 cm Weight: 180 lbs 07/23/2015 Blood Pressure 1: 124/70 Code: 8480-6 BMI: 29.6 Code: 60627-1 Heart Rate 1: 74 bpm Height: 5'5" SpO2: 96% Temperature: 36.7 (C) / 98.1 (F) Weight: 178 lbs 07/06/2015 Blood Pressure 1: 138/78 Code: 8480-6 BMI: 29.6 Code: 11004-7 Heart Rate 1: 84 bpm Height: 5'5" SpO2: 96% Weight: 178 lbs 05/26/2015 Blood Pressure 1: 122/80 Code: 8480-6 BMI: 29.6 Code: 45110-3 Heart Rate 1: 84 bpm Height: 5'5" Weight: 178 lbs 02/16/2015 Blood Pressure 1: 124/82 Code: 8480-6 BMI: 29.0 Code: 72865-7 Heart Rate 1: 68 bpm Height: 5'5" Weight: 174 lbs 12/10/2014 Blood Pressure 1: 112/64 Code: 8480-6 BMI: 28.6 Code: 03138-5 Heart Rate 1: 80 bpm Height: 5'5" Weight: 172 lbs 10/16/2014 Blood Pressure 1: 128/84 Code: 8480-6 Heart Rate 1: 64 bpm Weight: 172 lbs 10/09/2014 Blood Pressure 1: 136/90 Code: 8480-6 BMI: 28.6 Code: 02305-9 Heart Rate 1: 76 bpm Height: 5'5" Weight: 172 lbs 08/26/2014 Blood Pressure 1: 118/72 Code: 8480-6 BMI: 29.0 Code: 04560-7 Heart Rate 1: 76 bpm Height: 5'5" Weight: 174 lbs 05/16/2014 Blood Pressure 1: 110/72 Code: 8480-6 BMI: 29.0 Code: 04809-7 Height: 5'5" Weight: 174 lbs 04/23/2014 Blood Pressure 1: 124/70 Code: 8480-6 BMI: 29.0 Code: 21232-5 Heart Rate 1: 72 bpm Height: 5'5" Weight: 174 lbs 04/15/2014 Temperature: 36.5 (C) / 97.7 (F) 01/21/2014 Blood Pressure 1: 98/62 Code: 8480-6 BMI: 29.0 Code: 52145- 5 Heart Rate 1: 84 bpm Height: 5'5" Temperature: 37.1 (C) / 98.7 (F) Weight: 174 lbs 12/05/2013 Blood Pressure 1: 138/88 Code: 8480-6 BMI: 29.0 Code: 05709-9 Heart Rate 1: 60 bpm Height: 5'5" Weight: 174 lbs 11/05/2013 Blood Pressure 1: 118/80 Code: 8480-6 BMI: 28.8 Code: 33496-0 Heart Rate 1: 76 bpm Height: 5'5" Weight: 173 lbs 10/15/2013 Blood Pressure 1: 120/78 Code: 8480-6 BMI: 29.1 Code: 45379-4 Heart Rate 1: 88 bpm Height: 5'5" Weight: 175 lbs 09/30/2013 Blood Pressure 1: 112/84 Code: 8480-6 BMI: 29.1 Code: 74466-8 Heart Rate 1: 68 bpm Height: 5'5" Weight: 175 lbs 03/13/2013 Blood Pressure 1: 112/84 Code: 8480-6 BMI: 28.6 Code: 51941-2 Heart Rate 1: 64 bpm Height: 5'5" Weight: 173 lbs 10/04/2012 Blood Pressure 1: 120/72 Code: 8480-6 BMI: 28.0 Code: 21888-2 Heart Rate 1: 64 bpm Height: 5'5" Weight: 169 lbs 08/22/2011 Blood Pressure 1: 134/84 Code: 8480-6 BMI: 27.5 Code: 07901-0 Heart Rate 1: 68 bpm Height: 5'5" Respiratory Rate: 16 bpm Weight: 166 lbs 8 oz 06/17/2011 Blood Pressure 1: 120/76 Code: 8480-6 BMI: 27.0 Code: 57518-5 Heart Rate 1: 58 bpm Height: 5'5" [...] Directive data Encounters Encounter Performer Location Codes ([id number]) 32996 EST. PATIENT, LEVEL III Diagnosis: Cough[ICD10: R05] Diagnosis: Acute recurrent maxillary sinusitis[ICD10: J01.01] Suma Alvarado MD, [facility] CPT-4: 30299 09/11/2018 [id number] EST. PATIENT, LEVEL III Diagnosis: Pain in right hand[ICD10: M79.641] Gina Alvarado MD, [facility] CPT-4: 35689 07/12/2018 ([id number]) 94275 EST. PATIENT, LEVEL II Diagnosis: Dysuria[ICD10: R30.0] Suma Alvarado MD, [facility] CPT-4: 85229 05/07/2018 10047 EST. PATIENT, LEVEL IV Diagnosis: Tinnitus, bilateral[ICD10: H93.13] Diagnosis: Other allergic rhinitis[ICD10: J30.89] Gina Alvarado MD, [facility] CPT- 4: 50492 02/21/2018 83108 EST. PATIENT, LEVEL III Diagnosis: Acute laryngopharyngitis[ICD10: J06.0] Diagnosis: Other allergic rhinitis[ICD10: J30.89] Gina Alvarado MD, [facility] CPT- 4: 24052 08/29/2017 ([id number]) 01835 EST. PATIENT, LEVEL IV Diagnosis: Postprocedural hypothyroidism[ICD10: E89.0] Diagnosis: Major depressive disorder, recurrent, moderate[ICD10: F33.1] Diagnosis: Generalized anxiety disorder[ICD10: F41.1] Elina Alvarado MD, [facility] CPT-4: 09694 06/13/2017 ([id number]) 80531 EST. PATIENT, LEVEL IV Diagnosis: Pelvic and perineal pain[ICD10: R10.2] Diagnosis: Acute vaginitis[ICD10: N76.0] Suma Alvarado MD, [facility] CPT-4: 72447 02/16/2017 ([id number]) 71015 EST. PATIENT, LEVEL III Diagnosis: Postprocedural hypothyroidism[ICD10: E89.0] Diagnosis: Major depressive disorder, recurrent, moderate[ICD10: F33.1] Elina Alvarado MD, [facility] CPT-4: 87243 02/06/2017 ([id number]) 87986 EST. PATIENT, LEVEL III Diagnosis: Generalized anxiety disorder[ICD10: F41.1] Elina Alvarado MD, [facility] CPT-4: 39290 10/12/2016 ([id number]) 48783 EST. PATIENT, LEVEL III Diagnosis: Cough[ICD10: R05] Diagnosis: Acute upper respiratory infection, unspecified[ICD10: J06.9] Suma Alvarado MD, [facility] CPT-4: 27951 09/05/2016 ([id number]) 73880 EST. PATIENT, LEVEL III Diagnosis: Generalized anxiety disorder[ICD10: F41.1] Diagnosis: Major depressive disorder, recurrent, moderate[ICD10: F33.1] Diagnosis: Postprocedural hypothyroidism[ICD10: E89.0] Elina Alvarado MD, [facility] CPT-4: 05206 06/21/2016 ([id number]) 47617 EST. PATIENT, LEVEL III Diagnosis: Major depressive disorder, recurrent, moderate[ICD10: F33.1] Elina Alvarado MD, [facility] CPT-4: 93964 05/24/2016 ([id number]) 44255 EST. PATIENT, LEVEL III Diagnosis: Major depressive disorder, recurrent, moderate[ICD10: F33.1] Elina Alvarado MD, [facility] CPT-4: 44034 05/10/2016 ([id number]) 60599 EST. PATIENT, LEVEL III Diagnosis: Generalized anxiety disorder[ICD10: F41.1] Diagnosis: Major depressive disorder, recurrent, moderate[ICD10: F33.1] Suma Alvarado MD, [facility] CPT-4: 07943 05/03/2016 ([id number]) 67491 EST. PATIENT, LEVEL III Diagnosis: Cough[ICD10: R05] Diagnosis: Acute upper respiratory infection, unspecified[ICD10: J06.9] Suma Alvarado MD, [facility] CPT-4: 71198 07/23/2015 ([id number]) 15704 EST. PATIENT, LEVEL III Diagnosis: Hypothyroidism, unspecified[ICD10: E03.9] Diagnosis: Generalized anxiety disorder[ICD10: F41.1] Diagnosis: Other depressive episodes[ICD10: F32.8] Elina Alvarado MD, [facility] CPT-4: 86986 07/06/2015 ([id number]) 73584 EST. PATIENT, LEVEL IV Diagnosis: Generalized anxiety disorder[ICD10: F41.1] Diagnosis: Major depressive disorder, recurrent, unspecified[ICD10: F33.9] Elina Alvarado MD, [facility] CPT-4: 05818 05/26/2015 ([id number]) 38258 EST. PATIENT, LEVEL II Diagnosis: 2Nd degree burn of multiple fingers of right hand not including thumb[ICD9: 944.23] Suma Alvarado MD, [facility] CPT-4: 67291 02/16/2015 ([id number]) 75519 EST. PATIENT, LEVEL IV Diagnosis: Hammertoe[ICD9: 735.4] Diagnosis: Foot pain[ICD9: 729.5] Diagnosis: HYPOTHYROIDISM[ICD9: 244.9] Elina Alvarado MD, [facility] CPT-4: 07847 12/10/2014 ([id number]) 20893 EST. PATIENT, LEVEL III Diagnosis: Urinary incontinence[ICD9: 788.30] Diagnosis: Pelvic pain in female[ICD9: 625.9] Elina Alvarado MD, [facility] CPT- 4: 52419 10/16/2014 ([id number]) 47238 EST. PATIENT, LEVEL III Diagnosis: Urinary incontinence[ICD9: 788.30] Diagnosis: Pelvic pain in female[ICD9: 625.9] Suma Alvarado MD, [facility] CPT- 4: 21747 10/09/2014 ([id number]) 81643 EST. PATIENT, LEVEL III Diagnosis: HYPOTHYROIDISM[ICD9: 244.9] Elina Alvarado MD, [facility] CPT-4: 16289 08/26/2014 ([id number]) 47002 EST. PATIENT, LEVEL III Diagnosis: Neck pain[ICD9: 723.1] Diagnosis: Muscle tension headache[ICD9: 307.81] Suma Alvarado MD, [facility] CPT-4: 05399 05/16/2014 ([id number]) 83864 EST. PATIENT, LEVEL IV Diagnosis: Arthropod bite[ICD9: 919.4] Diagnosis: Poison diana dermatitis[ICD9: 692.6] Diagnosis: Arthralgia[ICD9: 719.40] Diagnosis: Myalgia[ICD9: 729.1] Elina Alvarado MD [facility] CPT-4: 70210 04/23/2014 ([id number]) 74164 EST. PATIENT, LEVEL III Diagnosis: ACUTE URI[ICD9: 465.9] Diagnosis: COUGH[ICD9: 786.2] Suma Alvarado MD [facility] CPT-4: 48169 01/21/2014 ([id number]) 47142 EST. PATIENT, LEVEL III Diagnosis: HYPOTHYROIDISM[ICD9: 244.9] Diagnosis: GENERALIZED ANXIETY DISEASE[ICD9: 300.02] Elina Alvarado MD [facility] CPT-4: 55825 12/05/2013 ([id number]) 86694 EST. PATIENT, LEVEL III Diagnosis: GENERALIZED ANXIETY DISEASE[ICD9: 300.02] Diagnosis: DEPRESSIVE DISORDER NEC[ICD9: 311] Elina Alvarado MD [facility] CPT- 4: 75879 11/05/2013 ([id number]) 19838 EST. PATIENT, LEVEL III Diagnosis: HYPOTHYROIDISM[ICD9: 244.9] Elina Alvarado MD [facility] CPT-4: 36151 10/15/2013 ([id number]) Miscellaneous no charge Diagnosis: Colon cancer screening[ICD9: V76.51] Elina Alvarado MD [facility] CPT- 4: 06600 10/10/2013 ([id number]) 70001 EST. PATIENT, LEVEL IV Diagnosis: HYPOTHYROIDISM[ICD9: 244.9] Diagnosis: DEPRESSIVE DISORDER NEC[ICD9: 311] Diagnosis: GENERALIZED ANXIETY DISEASE[ICD9: 300.02] Diagnosis: HYPERLIPIDEMIA[ICD9: 272.4] Elina Alvarado MD [facility] CPT-4: 22221 03/13/2013 ([id number]) 91854 EST. PATIENT, LEVEL IV Diagnosis: HYPERLIPIDEMIA[ICD9: 272.4] Diagnosis: HYPOTHYROIDISM[ICD9: 244.9] Diagnosis: GENERALIZED ANXIETY DISEASE[ICD9: 300.02] Diagnosis: DEPRESSIVE DISORDER NEC[ICD9: 311] Elina Alvarado MD [facility] CPT- 4: 61452 10/04/2012 ([id number]) 50821 EST. PATIENT, LEVEL III Diagnosis: VICTOR HUGO (generalized anxiety disorder)[ICD9: 300.02] Diagnosis: Chronic depression[ICD9: 311] [facility] CPT-4: 49138 08/22/2011 27533 EST. PATIENT, LEVEL IV Diagnosis: CHEST PAIN NEC[ICD9: 786.59] Diagnosis: HYPERLIPIDEMIA[ICD9: 272.4] Diagnosis: POSTSURGICAL HYPOTHYROIDISM[ICD9: 244.0] [facility] CPT-4: 39021 06/17/2011 Plan of Care Planned Activity Notes Codes Status Date Visit Plan: Sinusitis - Pt has acute infection - pain in face, maxillary region, Pt informed to use decongestant, RX given to patient, sinus rinses also recommended. Call if symptoms do not show improvement. 09/11/2018 Appointment: Suma Choi WPtel: [phone] (15 min) Moderate 09/11/2018 Patient Education: Patient Medication Summary Completed 09/11/2018 Visit Plan: Right hand pain - ongoing - will send for x-ray - The pt is to use prn antiinflammatories to manage acute pain. The patient is to call the office if the pain is worsening or does not improve. 07/12/2018 Appointment: Gina Kern WPtel: [facility]4 [facility] (15 min) Moderate 07/12/2018 Patient Education: Patient Medication Summary Completed 07/12/2018 Care Plan: X-RAY EXAM OF HAND LOINC : 66888-4 Pending 07/12/2018 Visit Plan: Dysuria- UA negative -symptoms resolved -instructed patient to continue with adequate fluid intake and call if symptoms return. Patient verbalized understanding of plan. 05/07/2018 Appointment: Suma Choi WPtel: [phone] (15 min) Moderate 05/07/2018 Patient Education: Patient Medication Summary Completed 05/07/2018 Appointment: Injection 04/24/2018 Patient Education: Patient Medication Summary Completed 04/24/2018 Referral: Ramiro Peter [facility] Referral Completed 03/22/2018 Visit Plan: Allergies - [...] hearing testing 02/21/2018 Appointment: Gina Kern WPtel: [facility] [address] (15 min) Moderate 02/21/2018 Patient Education: Patient Medication Summary Completed 02/21/2018 Care Plan: Referral Order SNOMED-CT : [id number] Pending 02/21/2018 Appointment: Elina Alvarado WPtel: [facility]7 [address] (15 min) Moderate 12/14/2017 Visit Plan: [...] Summary Completed 11/28/2017 Appointment: Gina Kern WPtel: [facility] [address] - Annual Wellness Visit 11/21/2017 Visit [...] spray. 08/29/2017 Appointment: [phone] [place] (15 min) Moderate 08/29/2017 Patient Education: Patient [...] counseling. 06/13/2017 Appointment: Elina Alvarado WPtel: [phone] [facility] [place] (15 min) Moderate 06/13/2017 Patient Education: Patient Medication Summary Completed 06/13/2017 Appointment: Injection 06/07/2017 Patient Education: Patient Medication Summary Completed 06/07/2017 Visit Plan: Pelvic pain-UA negative-pap done today in the office- will start patient on flagyl for bacterial vaginosis-instructed patient to call if symptoms do not resolve or if any worse. Patient verbalized understanding of plan. 02/16/2017 Appointment: Suma Choi [facility]el[phone] [phone] [place] (30 min) Complex 02/16/2017 Patient Education: [...] medications. 02/06/2017 Appointment: Elina Alvarado WPtel: [phone] [facility] (15 min) Moderate 02/06/2017 Patient Education: Patient [...] surrogate. 11/17/2016 Appointment: Gina Kern [facility]Ptel: [phone] [place] [facility] - Annual Wellness Visit 11/17/2016 [...] medications. 10/12/2016 Appointment: Elina Alvarado WPtel: [phone] [facility] [place] (15 min) Moderate 10/12/2016 Patient Education: [...] : J06.9 09/05/2016 Appointment: Suma Choi WPtel: [phone] [place] (10 min) Simple 09/05/2016 Patient Education: [...] with lexapro 06/21/2016 Appointment: Elina Alvarado WPtel: [facility] (15 min) Moderate 06/21/2016 Patient Education: Patient Medication Summary Completed 06/21/2016 Visit Plan: Depression - improved with lexapro - continue with current treatment and counseling. 05/24/2016 Appointment: Elina Alvarado WPtel: [facility] [place] (15 min) Moderate 05/24/2016 Patient Education: Patient Medication Summary Completed 05/24/2016 Visit Plan: Depression - improved on the Lexapro - stop ativan - start on xanax 05/10/2016 Appointment: Elina Alvarado WPtel: [facility] [place] (15 min) Moderate 05/10/2016 Patient Education: [...] Summary Completed 05/03/2016 Appointment: Suma Choi [facility]Ptel[phone] [phone] (15 min) Moderate 02/26/2016 Visit Plan: Medicare [...] and to maintain independece in the home. Hwhaoeptiv-lgztdbaogvls-xcvjea to wellbutrin Pneumonia 13 administered today in [...] and to maintain independece in the home. Ytjaikanja-qatngpvhvhiu-nbjtwa to wellbutrin Pneumonia 13 administered today in the office 11/13/2015 Appointment: [facility] - Annual Wellness Visit 11/13/2015 Patient Education: Patient Medication Summary Completed 11/13/2015 Patient Education: Obesity Completed 11/13/2015 Care Plan: SCREENINGMAMMOGRAPHYDIGITAL LOINC : 76135-8 Ordered 11/13/2015 Appointment: Lab Draw 08/10/2015 Visit [...] current medications. 07/06/2015 Appointment: Elina Alvarado WPtel: [facility] [place] [facility] (30 min) Complex 07/06/2015 Patient Education: Patient [...] upon discharge. 12/10/2014 Appointment: Elina Alvarado WPtel: [address] [place], [place] [phone] Surgical Clearance 12/10/2014 Patient Education: Patient Medication Summary Completed 12/10/2014 Visit Plan: Urinary incontinence and Pelvic discomfort - recommended pt to have evaluation by Dr. Brandt - pt agreeable to referral. Pt is to call if abdominal pain does not improve. 10/16/2014 Appointment: Elina Alvarado WPtel: [address] [place], [place] [phone] Follow up 10/16/2014 Patient Education: Patient Medication Summary Completed 10/16/2014 Care Plan: Referral Order SNOMED-CT : [id number] Ordered 10/16/2014 Patient Education: Patient Medication Summary Completed 10/10/2014 Visit Plan: Pelvic pain-history of mesh implant-recommend CT abd/pelvis to evaluate for any abnormality-refer to Dr Woods if pain does not improve Urinary incontinence-check UA with C&S if indicated 10/09/2014 Patient Education: Patient Medication Summary Completed 10/09/2014 Care Plan: CT ABD & PELV 1/> REGNS LOINC : 21082-9 Ordered 10/09/2014 Visit Plan: Hypothyroidism - pt with chronic hypothyroidism, continue with current medication, will monitor pt to signs or symptoms of lack of adequate supplementation. Pt is to continue with current dose of medication unless directed otherwise. Check labs at regular intervals wither q 3 months or q 6 months based on previous levels of control. 08/26/2014 Appointment: Elina Alvarado WPtel: [address] [place], [place] [phone] Follow up 08/26/2014 Patient Education: Patient Medication [...] with screening. 04/23/2014 Appointment: Elina Alvarado WPtel: [phone] [facility] Sick 04/23/2014 Patient Education: Patient Medication Summary Completed 04/23/2014 Care Plan: Referral Order SNOMED-CT : [id number] Ordered 04/23/2014 Appointment: Nurse Visit 04/15/2014 Patient Education: Patient Medication Summary Completed 04/15/2014 Appointment: Elina Alvarado WPtel: [phone] [phone] [place] Injection 02/11/2014 Patient Education: Patient Medication [...] current treatment. 12/05/2013 Appointment: Elina Alvarado WPtel: [phone] [phone] Follow up 12/05/2013 Patient Education: Patient Medication [...] above medications. 11/05/2013 Appointment: Elina Alvarado WPtel: [facility] Follow up 11/05/2013 Patient Education: Patient Medication [...] of control. 10/15/2013 Appointment: Elina Alvarado WPtel: [facility] [address] Well [facility] 10/15/2013 Patient Education: Patient [...] care surrogate. 09/30/2013 Appointment: Elina Alvarado WPtel: [facility] [facility] - Initial Preventive Physical Exam 09/30/2013 Patient Education: Patient Medication Summary Completed 09/30/2013 Appointment: Elina Alvarado WPtel: [phone] [facility] [place] [facility] [facility] - Initial Preventive Physical Exam [...] use. 03/13/2013 Appointment: Elina Alvarado WPtel: [phone] [facility] [place] [facility] Follow up 03/13/2013 Patient Education: Patient Medication [...] current medications. 10/04/2012 Appointment: Elina Alvarado WPtel: [address] [place] [address] Follow up 10/04/2012 Patient Education: Patient Medication [...] anxiety attacks. 08/22/2011 Appointment: Elina Alvarado WPtel: [address] [place] [address] Other 08/22/2011 Patient Education: Patient Medication Summary [...] THYROID ULTRASOUND 06/17/2011 Appointment: Elina Alvarado WPtel: [address] [place], [place] [phone] Other 06/17/2011 Patient Education: Patient Medication Summary Completed 06/17/2011 Referral: Raimundo Brandt WPtel: Referral Appointment Requested Referral: Peter Rubio [address] Referral Initiated Referral: Dr. Phelps WPtel: [...] and to maintain independece in the home. Ckhpvdhnuo-dumrkenbefsh-xbxdrv to wellbutrin Pneumonia 13 administered today in [...] and to maintain independece in the home. Uqltdcfuth-jkyqffypykhz-qmmgrf to wellbutrin Pneumonia 13 administered today in [...] in the nasal steroid allergy spray. . Depression - improved on the Lexapro - stop ativan - start on xanax . Kathy - Foot pain - pt to have surgery on 12/15/14, Dr. Reinoso to take pt to surgery - Pt is medically cleared for surgical intervention on her foot. Pt has chronic hypothyroidism, depression and anxiety - needs to continue her medications upon discharge. . check labs appointment with dr ambrocio chest xray, echocardiogram thyroid ultrasound if the chest pain becomes acute, worsens, or does not go away, go to the emergency room HYPERLIPIDEMIA - CONTINUE WITH CURRENT TREATMENT. DISCUSSED DIET CHANGES, NEED LOW FAT DIET. HYPOTHYROIDISM - CONTINUE WITH CURRENT MEDICATIONS, CHECH THYROID ULTRASOUND . Medicare Exam - today we discussed [...] Call if symptoms do not resolve. . Right hand pain - ongoing - will send for x-ray - The pt is to use prn antiinflammatories to manage acute pain. The patient is to call the office if the pain is worsening or does not improve. . Chronic Depression and anxiety - the [...] improved symptoms - continue with lexapro . Tick Bite - pt given script [...] - pt is not up-to-date with screening. schedule well woman . Medicare Exam - [...] DOPA paperwork for health care surrogate. . Depression - improved with lexapro - [...] based on previous levels of control. . Hyperlipidemia - pt has been counseled [...] situational exposure. No change in current medications. ROCEPHIN INJECTION TODAY IN THE OFFICE, [...] return. Patient verbalized understanding of plan. . Medicare Exam - today we discussed [...] her DOPA paperwork for health care surrogate. BUSPIRONE 5MG 1/2 TAB TWICE DAILY . [...] if abdominal pain does not improve. . Pelvic pain-history of mesh implant-recommend CT abd/pelvis to evaluate for any abnormality-refer to Dr Woods if pain does not improve Urinary incontinence-check UA with C&S if indicated . Anxiety - the patient has uncontrolled [...] a PRN basis for severe anxiety attacks. increase synthroid to 112 mcg daily. . [...] current medications. Symptoms stable, continue with counseling. LEXAPRO 20MG 1/2 TAB DAILY X [...] benefits of treatment with the above medications. Pap Repeat UA if painful urination persists Flagyl -sent to [facility] if symptoms do not resolve completely . Pelvic pain-UA negative-pap done today in the office-will start patient on flagyl for bacterial vaginosis-instructed patient to call if symptoms do not resolve or if any worse. Patient verbalized understanding of plan.
--- OUTSIDE RECORDS SUMMARY | 2018-12-27 09:50 | XMS REPORT | CCD ---
Author Author [facility] Organization [facility] Address [address] [place] [address] Phone Care Team Providers Care Break Out Man Name Role Phone PP Unavailable CCM Unavailable Summary Purpose Interface Exchange Insurance Providers Payer name Policy type / Coverage type Covered alliance party ID Effective Begin Date Effective End Date WPS Medicare Part B [id number] 2018 Unknown [facility] [id number] 2018 Unknown Family history Sister Diagnosis Age [...] Description Effective Dates Tobacco history SNOMED CT: 4669363 Former smoker quit 2 years ago, social smoker, 1 pack per month 200709/30/2013 Employment Unknown 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 Marital status Unknown 06/17/[address]: 952959 Currently drinks alcohol 2 beers/week 06/17/2011 Has [...] 02/16/2017 Unknown Pelvic and perineal pain ICD-9: [id number] ICD-10: R10.2 Active 02/16/2017 Unknown Hypothyroidism, unspecified [...] 02/16/2017 Active Pelvic and perineal pain ICD-9: [id number] ICD-10: R10.2 02/16/2017 Active Hypothyroidism, unspecified ICD-9: [...] Kenalog 40 mg/mL suspension for injection RxNorm: 0691268 1 Milliliter(s) Inj 09/11/2018 09/11/2018 Inactive Augmentin 875 mg-125 mg tablet RxNorm: 087418 1 Tablet(s) PO BID 09/11/2018 09/17/2018 Active naproxen 500 mg tablet RxNorm: 697630 1 Tablet(s) PO BID 07/12/2018 07/16/2018 Inactive Synthroid 112 mcg tablet RxNorm: 571792 TAKE ONE TABLET BY MOUTH DAILY 07/02/2018 12/28/2018 Active Lipitor 10 mg tablet RxNorm: 617394 TAKE ONE TABLET BY MOUTH EVERY DAY 06/06/2018 05/31/2019 Active Lexapro 20 mg tablet RxNorm: 021062 TAKE ONE TABLET BY MOUTH DAILY 05/08/2018 12/03/2018 Active Synthroid 100 mcg tablet RxNorm: 042658 TAKE ONE TABLET BY MOUTH EVERY OTHER DAY 04/10/2018 10/06/2018 Active Synthroid 100 mcg tablet RxNorm: 344072 1 Tablet(s) PO every other day 12/11/2017 04/09/2018 Inactive QOD -alternate with 112mcg DISPENSE BRAND NAME Synthroid 112 mcg tablet RxNorm: 600780 1 Tablet(s) every other day 11/28/2017 03/27/2018 Inactive QOD alternate with 100mcg Synthroid 100 mcg tablet RxNorm: 135910 1 Tablet(s) PO every other day 11/28/2017 12/10/2017 Inactive QOD -alternate with 112mcg DISPENSE BRAND NAME Synthroid 100 mcg tablet RxNorm: 464464 1 Tablet(s) PO every other day 11/28/2017 11/27/2017 Inactive QOD -alternate with 112mcg Xanax 0.5 mg tablet RxNorm: 073103 1 Tablet(s) PO QID as needed anxiety 11/14/2017 01/12/2018 Inactive Lexapro 20 mg tablet RxNorm: 438729 TAKE ONE TABLET BY MOUTH DAILY 11/13/2017 05/07/2018 Inactive Xanax 0.5 mg tablet RxNorm: 311906 1 Tablet(s) PO QID as needed anxiety 09/11/2017 11/08/2017 Inactive Tamiflu 75 mg capsule RxNorm: 439503 1 Capsule(s) PO BID 08/29/2017 09/02/2017 Inactive Synthroid 112 mcg tablet RxNorm: 208744 1 Tablet(s) daily 08/14/2017 11/27/2017 Inactive fyi - medication changed, refill x 6 - #30 pills Synthroid 112 mcg tablet RxNorm: 406133 1 Tablet(s) daily 06/13/2017 08/13/2017 Inactive fyi - medication changed, refill x 6 - #30 pills Lexapro 20 mg tablet RxNorm: 991358 TAKE ONE TABLET BY MOUTH DAILY 06/09/2017 11/05/2017 Inactive Synthroid 112 mcg tablet RxNorm: 935704 TAKE 1 TABLET BY MOUTH DAILY EXCEPT TAKE 1/2 TABLET ON MONDAY, MONDAY, AND Monday05/22/2017 06/12/2017 Inactive Lipitor 10 mg tablet RxNorm: 885602 TAKE ONE TABLET BY MOUTH EVERY DAY 03/08/2017 05/31/2018 Inactive Flagyl 500 mg tablet RxNorm: 297012 1 Tablet(s) PO TID 02/16/2017 02/22/2017 Inactive Xanax 0.5 mg tablet RxNorm: 696139 1 Tablet(s) PO QID as needed anxiety 12/23/2016 03/21/2017 Inactive Synthroid 112 mcg tablet RxNorm: 837778 TAKE 1 TABLET BY MOUTH DAILY EXCEPT FOR TAKE 1/2 TABLET ON MONDAY, MONDAY, AND Monday12/23/2016 04/13/2017 Inactive Lexapro 20 mg tablet RxNorm: 718797 TAKE ONE TABLET BY MOUTH DAILY 11/29/2016 05/27/2017 Inactive Zithromax Z-Que 250 mg tablet RxNorm: 610039 1 Tablet(s) PO UD 09/05/2016 09/09/2016 Inactive zpack Kenalog 40 mg/mL suspension for injection RxNorm: 9917775 1 Milliliter(s) Inj 09/05/2016 09/05/2016 Inactive Lipitor 10 mg tablet RxNorm: 328607 TAKE ONE TABLET BY MOUTH EVERY DAY 08/30/2016 02/25/2017 Inactive Ativan 1 mg tablet RxNorm: 886381 1 Tablet(s) PO Q6 PRN as needed TAKE ONE TABLET BY MOUTH THREE TIMES A DAY OR EVERY 6 HOURS NEEDED FOR ANXIETY 08/30/2016 12/22/2016 Inactive Synthroid 112 mcg tablet RxNorm: 127746 1 Tablet(s) PO daily except one-half tab on /Mon08/23/2016 12/12/2016 Inactive will refill when needed Lexapro 20 mg tablet RxNorm: 931679 TAKE ONE TABLET BY MOUTH DAILY 08/02/2016 11/28/2016 Inactive Synthroid 112 mcg tablet RxNorm: 111859 1 Tablet(s) PO daily except 1/2 tab wed and sat 05/25/2016 08/22/2016 Inactive will refill when needed Xanax 0.5 mg tablet RxNorm: 732523 1 Tablet(s) PO QID as needed anxiety 05/10/2016 08/29/2016 Inactive Lexapro 20 mg tablet RxNorm: 724425 1 Tablet(s) PO daily 05/03/2016 07/31/2016 Inactive 1/2 tab x 1 week then increase to a full pill daily buspirone 5 mg tablet RxNorm: 746546 TAKE ONE-HALF TABLET BY MOUTH TWICE A DAY 03/15/2016 05/02/2016 Inactive Synthroid 112 mcg tablet RxNorm: 525683 1 Tablet(s) PO daily 02/25/2016 05/24/2016 Inactive Ativan 1 mg tablet RxNorm: 696466 Tablet(s) TAKE ONE TABLET BY MOUTH THREE TIMES A DAY OR EVERY 6 HOURS NEEDED FOR ANXIETY 02/04/2016 05/08/2016 Inactive Synthroid 125 mcg tablet RxNorm: 008399 TAKE ONE TABLET BY MOUTH TWICE WEEKLY 01/11/2016 02/24/2016 Inactive Synthroid 112 mcg tablet RxNorm: 210810 TAKE ONE TABLET BY MOUTH FIVE DAYS A WEEK 01/11/2016 02/24/2016 Inactive Wellbutrin 75 mg tablet RxNorm: 359169 TAKE ONE TABLET BY MOUTH TWICE A DAY 01/11/2016 05/02/2016 Inactive Ativan 1 mg tablet RxNorm: 420625 TAKE ONE TABLET BY MOUTH THREE TIMES A DAY OR EVERY 6 HOURS NEEDED 12/03/2015 12/27/2015 Inactive Lipitor 10 mg tablet RxNorm: 001593 TAKE ONE TABLET BY MOUTH EVERY DAY 12/03/2015 08/28/2016 Inactive Ativan 1 mg tablet RxNorm: 351835 Tablet(s) TAKE ONE TABLET BY MOUTH THREE TIMES A DAY AND TAKE ONE TABLET BY MOUTH EVERY 6 HOURS NEEDED FOR ANXIETY 12/03/2015 12/02/2015 Inactive (Response to an electronic controlled substance refill request - RxReferenceNumber: [id number]) Wellbutrin 75 mg tablet RxNorm: 420575 1 Tablet(s) PO BID 11/13/2015 01/10/2016 Inactive Ativan 1 mg tablet RxNorm: 335828 Tablet(s) TAKE ONE TABLET BY MOUTH THREE TIMES A DAY AND TAKE ONE TABLET BY MOUTH EVERY 6 HOURS NEEDED FOR ANXIETY 09/23/2015 10/30/2015 Inactive (Response to an electronic controlled substance refill request - RxReferenceNumber: [id number]) buspirone 5 mg tablet RxNorm: 638645 TAKE ONE-HALF TABLET BY MOUTH TWICE A DAY 08/18/2015 03/01/2016 Inactive ceftriaxone 500 mg solution for injection RxNorm: 3224272 Inj 07/23/2015 07/23/2015 Inactive Zithromax Z-Que 250 mg tablet RxNorm: 496702 1 Tablet(s) PO UD 07/23/2015 07/27/2015 Inactive ZPACK buspirone 5 mg tablet RxNorm: 910883 1 Tablet(s) PO daily 07/06/2015 10/03/2015 Inactive buspirone 5 mg tablet RxNorm: 455137 1/2 Tablet(s) PO BID 05/26/2015 07/05/2015 Inactive Lipitor 10 mg tablet RxNorm: 186075 TAKE ONE TABLET BY MOUTH EVERY DAY 04/23/2015 10/19/2015 Inactive Ativan 1 mg tablet RxNorm: 347216 Tablet(s) TAKE ONE TABLET BY MOUTH THREE TIMES A DAY AND TAKE ONE TABLET BY MOUTH EVERY 6 HOURS NEEDED FOR ANXIETY 02/23/2015 04/01/2015 Inactive (Response to an electronic controlled substance refill request - RxReferenceNumber: [id number]) Synthroid 125 mcg tablet RxNorm: 848106 1 Tablet(s) PO UD twice weekly 12/10/2014 06/07/2015 Inactive Synthroid 112 mcg tablet RxNorm: 611459 1 Tablet(s) PO UD TAKE ONE TABLET BY MOUTH 5 days a week 12/10/2014 12/04/2015 Inactive Lexapro 20 mg tablet RxNorm: 206072 1 Tablet(s) PO daily 11/26/2014 11/12/2015 Inactive Lipitor 10 mg tablet RxNorm: 171000 TAKE ONE TABLET BY MOUTH EVERY DAY 10/21/2014 04/18/2015 Inactive amoxicillin 500 mg capsule RxNorm: 523022 1 Capsule(s) PO TID 10/15/2014 10/21/2014 Inactive take probiotic BID x 7 days during abt period amoxicillin 500 mg capsule RxNorm: 028618 1 Capsule(s) PO TID 10/15/2014 10/14/2014 Inactive take probiotic BID x 7 days during abt period Ativan 1 mg tablet RxNorm: 385750 TAKE ONE TABLET BY MOUTH THREE TIMES A DAY AND TAKE ONE TABLET BY MOUTH EVERY 6 HOURS NEEDED FOR ANXIETY 08/21/2014 09/28/2014 Inactive (Response to an electronic controlled substance refill request - [id number]) Ativan 1 mg tablet RxNorm: 016563 1 Tablet(s) PO tid and Q6 PRN as needed 08/18/2014 08/21/2014 Inactive doxycycline hyclate 100 mg tablet RxNorm: 478698 1 Tablet(s) PO BID 04/23/2014 05/25/2015 Inactive prednisone 10 mg tablets in a dose pack RxNorm: 048906 1 Tablet(s) PO 02/14/2014 05/25/2015 Inactive Kenalog 40 mg/mL suspension for injection RxNorm: 5136935 1 Milliliter(s) Inj 02/11/2014 02/11/2014 Inactive Keflex 500 mg capsule RxNorm: 152338 1 Capsule(s) PO TID 01/21/2014 01/27/2014 Inactive Kenalog 40 mg/mL suspension for injection RxNorm: 7163368 Milliliter(s) Inj 01/21/2014 01/21/2014 Inactive Synthroid 112 mcg tablet RxNorm: 544914 1 Tablet(s) PO daily TAKE ONE TABLET BY MOUTH EVERY DAY 12/05/2013 11/29/2014 Inactive Ativan 1 mg tablet RxNorm: 431452 1 Tablet(s) PO Q6 PRN 11/05/2013 02/02/2014 Inactive Lexapro 20 mg tablet RxNorm: 744998 1 Tablet(s) PO daily 11/05/2013 11/04/2013 Inactive Lexapro 20 mg tablet RxNorm: 475770 1 Tablet(s) PO daily 11/05/2013 10/30/2014 Inactive Lipitor 10 mg tablet RxNorm: 237879 1 Tablet(s) PO QPM TAKE ONE TABLET BY MOUTH EVERY DAY 09/30/2013 10/20/2014 Inactive Lexapro 20 mg tablet RxNorm: 077331 1 Tablet(s) PO daily 09/30/2013 11/04/2013 Inactive Synthroid 125 mcg tablet RxNorm: 749421 1 Tablet(s) PO daily 09/10/2013 12/04/2013 Inactive Synthroid 100 mcg tablet RxNorm: 096289 1 Tablet(s) PO daily TAKE ONE TABLET BY MOUTH EVERY DAY 09/06/2013 09/09/2013 Inactive Lipitor 10 mg tablet RxNorm: 987493 Tablet(s) PO TAKE ONE TABLET BY MOUTH EVERY DAY 08/15/2013 09/29/2013 Inactive Synthroid 100 mcg tablet RxNorm: 305168 1 Tablet(s) PO daily TAKE ONE TABLET BY MOUTH EVERY DAY 04/26/2013 09/05/2013 Inactive Ativan 1 mg tablet RxNorm: 309301 1 Tablet(s) PO Q6 PRN 03/13/2013 No Stop Date Active Synthroid 100 mcg tablet RxNorm: 647027 1 Tablet(s) PO daily TAKE ONE TABLET BY MOUTH EVERY DAY 03/13/2013 04/25/2013 Inactive Lexapro 20 mg tablet RxNorm: 416309 1/2 Tablet(s) PO BID 03/13/2013 09/29/2013 Inactive Synthroid 112 mcg tablet RxNorm: 554875 Tablet(s) PO TAKE ONE TABLET BY MOUTH EVERY DAY 01/08/2013 03/12/2013 Inactive Lexapro 20 mg tablet RxNorm: 578150 Tablet(s) PO TAKE 1/2 TABLET EVERY MORNING AND TAKE ONE TABLET BY MOUTH AT BEDTIME 10/18/2012 03/12/2013 Inactive Lipitor 20 mg tablet RxNorm: 266484 1/2 Tablet(s) PO daily 08/20/2012 02/04/2013 Inactive Lipitor 10 mg tablet RxNorm: 566121 1 Tablet(s) PO daily 05/23/2012 08/19/2012 Inactive Synthroid 112 mcg tablet RxNorm: 173478 1 Tablet(s) PO daily 12/16/2011 01/07/2013 Inactive Synthroid 112 mcg Tab RxNorm: 523060 1 Tablet(s) PO daily 12/16/2011 12/15/2011 Inactive Lipitor 10 mg tablet RxNorm: 962512 1 Tablet(s) PO daily 12/15/2011 05/22/2012 Inactive Synthroid 112 mcg Tab RxNorm: 561959 1 Tablet(s) PO every other day 11/09/2011 12/15/2011 Inactive every other day Synthroid 112 mcg Tab RxNorm: 138886 1 Tablet(s) PO every other day 10/21/2011 11/08/2011 Inactive every other day Synthroid 125 mcg Tab RxNorm: 722185 1 Tablet(s) PO every other day 10/21/2011 12/16/2011 Inactive every other day Lexapro 20 mg tablet RxNorm: 628590 1.5 Tablet(s) PO daily 1/2 pill in AM and 1 pill at bedtime 09/22/2011 04/18/2012 Inactive 1/2 q am 1 q hs diazepam 5 mg Tab RxNorm: 595098 1 Tablet(s) PO daily 1 tab bid prn 09/21/2011 05/17/2012 Inactive Lexapro 20 mg Tab RxNorm: 424295 1.5 Tablet(s) PO daily 1/2 pill in AM and 1 pill at bedtime 08/22/2011 09/21/2011 Inactive diazepam 5 mg Tab RxNorm: 330793 1 Tablet(s) PO daily 1 tab bid prn 06/20/2011 09/20/2011 Inactive diazepam 5 mg Tab RxNorm: 115618 1 Tablet(s) PO daily 1 tab bid prn 06/20/2011 06/19/2011 Inactive diazepam 5 mg Tab RxNorm: 249045 1 Tablet(s) PO daily 1 tab bid prn 06/17/2011 06/19/2011 Inactive Lipitor 10 mg Tab RxNorm: 185671 1 Tablet(s) PO daily 05/31/2011 11/26/2011 Inactive diazepam 5 mg Tab RxNorm: 607856 1 Tablet(s) PO BID 1 tab bid prn 04/21/2011 05/20/2011 Inactive Calcium 600 + D(3) Oral RxNorm: Oral No Start Date Active Menest 0.625 mg Tab RxNorm: 301276 1 Tablet(s) PO daily No Start Date 06/16/2011 Inactive Synthroid 125 mcg tablet RxNorm: 828671 Tablet(s) PO No Start Date 09/09/2013 Inactive Ativan 1 mg tablet RxNorm: 903313 1 Tablet(s) PO Q6 PRN No Start Date 08/21/2011 Inactive aspirin 81 mg Tab, Delayed Release RxNorm: 2101073 1 Tablet(s) PO daily No Start Date 09/29/2013 Inactive Lexapro 10 mg Tab RxNorm: 001617 1 Tablet(s) PO daily No Start Date 08/22/2011 Inactive prednisone 10 mg tablets in a dose pack RxNorm: 463923 1 Tablet(s) PO No Start Date 02/13/2014 Inactive Synthroid 112 mcg Tab RxNorm: 145210 Tablet(s) PO /thurs/sat/sun No Start Date 10/20/2011 Inactive lorazepam 1 mg Tab RxNorm: 264178 Tablet(s) PO Q6 PRN No Start Date 11/04/2013 Inactive Lipitor 20 mg tablet RxNorm: 275999 1/2 Tablet(s) PO daily No Start Date 08/20/2012 Inactive Vitamin D2 oral RxNorm: oral No Start Date 09/29/2013 Inactive Synthroid 125 mcg Tab RxNorm: 740424 1 Tablet(s) PO No Start Date 10/20/2011 Inactive synthroid 112 mcg mon Medication Administered Medication Codes Instructions Start Date Status Kenalog 40 mg/mL suspension for injection RxNorm: 5534515 1Milliliter 09/11/2018 Active Kenalog 40 mg/mL suspension for injection RxNorm: 4906629 1Milliliter 09/05/2016 No longer Active ceftriaxone 500 mg solution for injection RxNorm: 7591142 07/23/2015 No longer Active Kenalog 40 mg/mL suspension for injection RxNorm: 4207475 1Milliliter 02/11/2014 No longer Active Kenalog 40 mg/mL suspension for injection RxNorm: 4358267 Milliliter 01/21/2014 No longer Active Immunizations Vaccine [...] Pelvic and perineal pain ICD-10: R10.2 ICD-9: [id number] 02/16/2017 Acute vaginitis ICD-10: N76.0 ICD-9: 623.5 [...] 29.7 pg 11/23/2017 Cbc With Differential Ord2 [place]% 9.0 % 11/23/2017 Cbc With Differential Ord2 [...] 1.77 K/ul 11/23/2017 Cbc With Differential Ord2 [place] ABS# 0.6 K/ul 11/23/2017 Cbc With Differential Ord2 Eos ABS# 0.2 K/ul 11/23/2017 Cbc With Differential Ord2 Baso ABS# 0.0 K/ul 11/23/2017 Tsh Ord6 TSH (3rd IS) 0.17 uIU/mL 11/23/2017 Free T4 Euh503 FREE T4 1.10 ng/dL 11/23/2017 Comp Metabolic Rty935 NA 142 mEq/L 11/23/2017 Comp Metabolic Vtd723 K 4.4 mEq/L 11/23/2017 Comp Metabolic Wlr676 CL 109 mEq/L 11/23/2017 Comp Metabolic Xnq789 CO2 28.0 mEq/L 11/23/2017 Comp Metabolic Hbo460 ANION GAP 9 11/23/2017 Comp Metabolic Tcl407 GLUCOSE 106 mg/dL 11/23/2017 Comp Metabolic Nnx515 Creat 0.9 mg/dL 11/23/2017 Comp Metabolic Yvs779 eGFR 68 ml/min/1.73m2 11/23/2017 Comp Metabolic Xvj794 BUN 17 mg/dL 11/23/2017 Comp Metabolic Jgv259 B/C Ratio 19.3 Ratio 11/23/2017 Comp Metabolic Ymw820 CALCIUM 9.0 mg/dL 11/23/2017 Comp Metabolic Ayv904 ALK PHOS 65 U/L 11/23/2017 Comp Metabolic Drm893 AST(SGOT) 18 U/L 11/23/2017 Comp Metabolic Znx216 ALT(SGPT) 16 U/L 11/23/2017 Comp Metabolic Myu927 BILI T 0.5 mg/dL 11/23/2017 Comp Metabolic Zba034 ALBUMIN 4.2 g/dL 11/23/2017 Comp Metabolic Snt279 TPRO 6.5 g/dL 11/23/2017 Comp Metabolic Dwf546 GLOB 2.3 g/dL 11/23/2017 Comp Metabolic Rhm509 A/G Ratio 1.8 Ratio 11/23/2017 Comp Metabolic Vqk877 Osmo 285 mOsmo 11/23/2017 Lipid Ord30 CHOL [...] hTSH II 4.83 uIU/mL 06/07/2017 Comp Metabolic Yvj529 NA 141 mEq/L 06/07/2017 Comp Metabolic Qij041 K 4.3 mEq/L 06/07/2017 Comp Metabolic Cwc336 CL 106 mEq/L 06/07/2017 Comp Metabolic Snm903 CO2 26.0 mEq/L 06/07/2017 Comp Metabolic Hpg940 ANION GAP 13 06/07/2017 Comp Metabolic Akt985 GLUCOSE 93 mg/dL 06/07/2017 Comp Metabolic Kri113 Creat 0.9 mg/dL 06/07/2017 Comp Metabolic Ljf925 eGFR 65 ml/min/1.73m2 06/07/2017 Comp Metabolic Xvg030 BUN 10 mg/dL 06/07/2017 Comp Metabolic Brg773 B/C Ratio 11.0 Ratio 06/07/2017 Comp Metabolic Jxc794 CALCIUM 8.9 mg/dL 06/07/2017 Comp Metabolic Zyr845 ALK PHOS 69 U/L 06/07/2017 Comp Metabolic Msc903 AST(SGOT) 18 U/L 06/07/2017 Comp Metabolic Sjl914 ALT(SGPT) 15 U/L 06/07/2017 Comp Metabolic Xqo786 BILI T 0.5 mg/dL 06/07/2017 Comp Metabolic Qzn873 ALBUMIN 4.1 g/dL 06/07/2017 Comp Metabolic Dve048 TPRO 6.5 g/dL 06/07/2017 Comp Metabolic Umj648 GLOB 2.4 g/dL 06/07/2017 Comp Metabolic Erh726 A/G Ratio 1.7 Ratio 06/07/2017 Comp Metabolic Pnq642 Osmo 280 mOsmo 06/07/2017 Cbc With Differential [...] 30.1 % 06/07/2017 Cbc With Differential Ord2 [place]% 9.1 % 06/07/2017 Cbc With Differential Ord2 [...] 1.62 K/ul 06/07/2017 Cbc With Differential Ord2 [place] ABS# 0.5 K/ul 06/07/2017 Cbc With Differential Ord2 Eos ABS# 0.2 K/ul 06/07/2017 Cbc With Differential Ord2 Baso ABS# 0.0 K/ul 06/07/2017 Free T4 Cmk034 FREE T4 0.92 ng/dL 06/07/2017 Tsh Ord6 hTSH II 1.07 uIU/mL 11/17/2016 Free T4 Whh602 FREE T4 1.02 ng/dL 11/17/2016 Lipid Ord30 CHOL 195 mg/dL 10/13/2016 Lipid Ord30 HDL 68.0 mg/dl 10/13/2016 Lipid Ord30 TRIG 69 mg/dL 10/13/2016 Lipid Ord30 LDL 113 mg/dL 10/13/2016 Lipid Ord30 C/HDL 2.9 Ratio 10/13/2016 Comp Metabolic Myr340 NA 138 mEq/L 10/13/2016 Comp Metabolic Zpy078 K 4.4 mEq/L 10/13/2016 Comp Metabolic Pzs536 CL 102 mEq/L 10/13/2016 Comp Metabolic Cai040 CO2 29.0 mEq/L 10/13/2016 Comp Metabolic Vvx339 ANION GAP 11 10/13/2016 Comp Metabolic Jbm467 GLUCOSE 85 mg/dL 10/13/2016 Comp Metabolic Vtn411 Creat 1.0 mg/dL 10/13/2016 Comp Metabolic Utx350 eGFR 59 ml/min/1.73m2 10/13/2016 Comp Metabolic Nre809 BUN 21 mg/dL 10/13/2016 Comp Metabolic Zqy004 B/C Ratio 21.2 Ratio 10/13/2016 Comp Metabolic Ttq287 CALCIUM 9.7 mg/dL 10/13/2016 Comp Metabolic Xky878 ALK PHOS 70 U/L 10/13/2016 Comp Metabolic Vgh025 AST(SGOT) 17 U/L 10/13/2016 Comp Metabolic Yxj125 ALT(SGPT) 14 U/L 10/13/2016 Comp Metabolic Rbv586 BILI T 0.9 mg/dL 10/13/2016 Comp Metabolic Mjx145 ALBUMIN 4.4 g/dL 10/13/2016 Comp Metabolic Ltr922 TPRO 7.1 g/dL 10/13/2016 Comp Metabolic Lhn186 GLOB 2.7 g/dL 10/13/2016 Comp Metabolic Lvh056 A/G Ratio 1.6 Ratio 10/13/2016 Comp Metabolic Xvy597 Osmo 278 mOsmo 10/13/2016 Cbc With Differential [...] 23.8 % 10/13/2016 Cbc With Differential Ord2 [place]% 7.7 % 10/13/2016 Cbc With Differential Ord2 [...] 1.43 K/ul 10/13/2016 Cbc With Differential Ord2 [place] ABS# 0.5 K/ul 10/13/2016 Cbc With Differential Ord2 Eos ABS# 0.1 K/ul 10/13/2016 Cbc With Differential Ord2 Baso ABS# 0.0 K/ul 10/13/2016 Free T4 Qnt982 FREE T4 1.31 ng/dL 08/17/2016 Tsh Ord6 hTSH II 0.64 uIU/mL 08/17/2016 Free T4 Hsr122 FREE T4 1.49 ng/dL 05/10/2016 Comp Metabolic Spe726 NA 139 mEq/L 05/10/2016 Comp Metabolic Pjm596 K 4.5 mEq/L 05/10/2016 Comp Metabolic Ghi917 CL 104 mEq/L 05/10/2016 Comp Metabolic Mfc992 CO2 24.0 mEq/L 05/10/2016 Comp Metabolic Rin620 ANION GAP 16 05/10/2016 Comp Metabolic Jmr558 GLUCOSE 87 mg/dL 05/10/2016 Comp Metabolic Par933 Creat 0.9 mg/dL 05/10/2016 Comp Metabolic Xhq501 eGFR 71 ml/min/1.73m2 05/10/2016 Comp Metabolic Hco327 BUN 12 mg/dL 05/10/2016 Comp Metabolic Vnc543 B/C Ratio 14.1 Ratio 05/10/2016 Comp Metabolic Yva152 CALCIUM 9.6 mg/dL 05/10/2016 Comp Metabolic Wro736 ALK PHOS 89 U/L 05/10/2016 Comp Metabolic Hus213 AST(SGOT) 17 U/L 05/10/2016 Comp Metabolic Cef579 ALT(SGPT) 17 U/L 05/10/2016 Comp Metabolic Ubl989 BILI T 0.9 mg/dL 05/10/2016 Comp Metabolic Feb050 ALBUMIN 4.2 g/dL 05/10/2016 Comp Metabolic Fqo150 TPRO 6.7 g/dL 05/10/2016 Comp Metabolic Ixp949 GLOB 2.5 g/dL 05/10/2016 Comp Metabolic Crv946 A/G Ratio 1.7 Ratio 05/10/2016 Comp Metabolic Eon700 Osmo 277 mOsmo 05/10/2016 Cbc With Differential [...] 85.5 fl 05/10/2016 Cbc With Differential Ord2 [place]% 8.3 % 05/10/2016 Cbc With Differential Ord2 [...] 1.57 K/ul 05/10/2016 Cbc With Differential Ord2 [place] ABS# 0.6 K/ul 05/10/2016 Cbc With Differential Ord2 Eos ABS# 0.2 K/ul 05/10/2016 Cbc With Differential Ord2 Baso ABS# 0.0 K/ul 05/10/2016 Tsh Ord6 hTSH II 0.03 uIU/mL 05/10/2016 Free T4 Blb002 FREE T4 1.67 ng/dL 02/18/2016 Tsh Ord6 hTSH II 0.06 uIU/mL 02/18/2016 Comp Metabolic Rvc535 NA 138 mEq/L 02/18/2016 Comp Metabolic Fgq708 K 4.5 mEq/L 02/18/2016 Comp Metabolic Jpk449 CL 104 mEq/L 02/18/2016 Comp Metabolic Zhw594 CO2 26.0 mEq/L 02/18/2016 Comp Metabolic Osr893 ANION GAP 13 02/18/2016 Comp Metabolic Dhy073 GLUCOSE 88 mg/dL 02/18/2016 Comp Metabolic Gxt162 Creat 0.9 mg/dL 02/18/2016 Comp Metabolic Okb387 eGFR 69 ml/min/1.73m2 02/18/2016 Comp Metabolic Fdg700 BUN 14 mg/dL 02/18/2016 Comp Metabolic Kku645 B/C Ratio 16.1 Ratio 02/18/2016 Comp Metabolic Goq072 CALCIUM 9.4 mg/dL 02/18/2016 Comp Metabolic Axu987 ALK PHOS 95 U/L 02/18/2016 Comp Metabolic Yyq058 AST(SGOT) 19 U/L 02/18/2016 Comp Metabolic Wwk475 ALT(SGPT) 18 U/L 02/18/2016 Comp Metabolic Mlc361 BILI T 0.7 mg/dL 02/18/2016 Comp Metabolic Zva515 ALBUMIN 4.4 g/dL 02/18/2016 Comp Metabolic Kuc717 TPRO 6.9 g/dL 02/18/2016 Comp Metabolic Dsy561 GLOB 2.5 g/dL 02/18/2016 Comp Metabolic Ijm857 A/G Ratio 1.7 Ratio 02/18/2016 Comp Metabolic Kdg481 Osmo 276 mOsmo 02/18/2016 Lipid Ord30 CHOL [...] 28.9 pg 02/18/2016 Cbc With Differential Ord2 [place]% 10.5 % 02/18/2016 Cbc With Differential Ord2 [...] 1.08 K/ul 02/18/2016 Cbc With Differential Ord2 [place] ABS# 0.6 K/ul 02/18/2016 Cbc With Differential Ord2 Eos ABS# 0.0 K/ul 02/18/2016 Cbc With Differential Ord2 Baso ABS# 0.0 K/ul 02/18/2016 Comp Metabolic Emm837 NA 136 mEq/L 06/08/2015 Comp Metabolic Ibw974 K 3.9 mEq/L 06/08/2015 Comp Metabolic Vnc298 CL 103 mEq/L 06/08/2015 Comp Metabolic Izg417 CO2 25.0 mEq/L 06/08/2015 Comp Metabolic Avt177 ANION GAP 12 06/08/2015 Comp Metabolic Tgh661 GLUCOSE 91 mg/dL 06/08/2015 Comp Metabolic Apx363 Creat 0.9 mg/dL 06/08/2015 Comp Metabolic Gvn361 eGFR 68 ml/min/1.73m2 06/08/2015 Comp Metabolic Ebo148 BUN 10 mg/dL 06/08/2015 Comp Metabolic Buo810 B/C Ratio 11.4 Ratio 06/08/2015 Comp Metabolic Txd268 CALCIUM 9.4 mg/dL 06/08/2015 Comp Metabolic Ixy136 ALK PHOS 88 U/L 06/08/2015 Comp Metabolic Vbs049 AST(SGOT) 20 U/L 06/08/2015 Comp Metabolic You738 ALT(SGPT) 18 U/L 06/08/2015 Comp Metabolic Drt748 BILI T 0.8 mg/dL 06/08/2015 Comp Metabolic Byy055 ALBUMIN 4.4 g/dL 06/08/2015 Comp Metabolic Lyp474 TPRO 7.0 g/dL 06/08/2015 Comp Metabolic Dia782 GLOB 2.6 g/dL 06/08/2015 Comp Metabolic Mww358 A/G Ratio 1.7 Ratio 06/08/2015 Comp Metabolic Ygl150 Osmo 271 mOsmo 06/08/2015 Tsh Ord6 hTSH [...] Ord2 RDW 14.4 % 06/08/2015 LYME EIA [id number] LYME EIA 0.24 04/25/2014 TULAREM AB [id number] TULAREM AB <1:20 04/24/2014 RMSF IFA [id number] IGG RMSF <1:16 04/24/2014 RMSF IFA [id number] IGM RMSF <1:10 04/24/2014 E CHAFF AB [id number] IGG E CHFF <1:16 04/24/2014 E CHAFF AB [id number] IGM E CHFF <1:10 04/24/2014 ICT OCCULT [id number] ICT OCCULT NEG 10/11/2013 Review of Systems [...] unsteadiness 10/04/2012 None Full Exam - General 1995 [...] [id number] 09/11/2018 URINALYSIS NONAUTO W/O SCOPE CPT-4: 49218 05/07/2018 ADMIN INFLUENZA VIRUS VAC CPT-4: G0008 04/24/2018 FLU VACC PRSV FREE INC ANTIG CPT-4: 67064 04/24/2018 PPPS, SUBSEQ VISIT CPT- 4: G0439 11/28/2017 ADMIN INFLUENZA VIRUS VAC CPT-4: G0008 06/07/2017 FLU VACC PRSV FREE INC ANTIG CPT-4: 81063 06/07/2017 PPPS, SUBSEQ VISIT CPT- 4: G0439 11/17/2016 TRIAMCINOLONE ACET INJ NOS CPT-4: J3301 09/05/2016 PPPS, SUBSEQ VISIT CPT- 4: G0439 11/13/2015 PNEUMOCOCCAL VACC 13 STEPHANIE IM Formatting Model/CDA Sections, Assigned to/Lila Colon SNOMED CT: 81981114 CPT-4: 88648Avcstwj 11/13/2015 ADMIN PNEUMOCOCCAL VACCINE SNOMED CT: 88054936 CPT-4: G0009 11/13/2015 ROCEPHIN, PER 250 MG CPT- 4: J0696 07/23/2015 URINALYSIS NONAUTO W/O SCOPE CPT-4: 83265 10/10/2014 ROUTINE VENIPUNCTURE CPT- 4: 58475 04/23/2014 Pneumococcal Polysaccharide Vaccine, 23-Valent, Ad CPT-4: 52893 04/15/2014 ADMIN INFLUENZA VIRUS VAC CPT-4: G0008 04/15/2014 FLU VAC NO PRSV 4 STEPHANIE 3 YRS+ CPT-4: 28357 04/15/2014 ADMIN PNEUMOCOCCAL VACCINE SNOMED CT: 63373815 CPT-4: G0009 04/15/2014 THER/PROPH/DIAG INJ SC/IM CPT-4: 71999 02/11/2014 TRIAMCINOLONE ACET INJ NOS CPT-4: J3301 02/11/2014 TRIAMCINOLONE ACET INJ NOS CPT-4: J3301 01/21/2014 INITIAL PREVENTIVE EXAM CPT-4: G0402 09/30/2013 PRESCRIP TRANSMIT VIA ERX SY CPT-4: G8553 03/13/2013 Vital Signs Date Vital 09/11/2018 Blood Pressure 1: 114/76 Code: 8480-6 BMI: 29.3 Code: 61444-8 Heart Rate 1: 80 bpm Height: 5'5" SpO2: 95% Temperature: 36.3 (C) / 97.3 (F) Weight: 176 lbs 07/12/2018 Blood Pressure 1: 126/76 Code: 8480-6 BMI: 29.3 Code: 80999-6 Heart Rate 1: 70 bpm Height: 5'5" SpO2: 96% Weight: 176 lbs 05/07/2018 Blood Pressure 1: 118/72 Code: 8480-6 BMI: 29.5 Code: 67878-3 Heart Rate 1: 71 bpm Height: 5'5" SpO2: 98% Weight: 177 lbs 02/21/2018 Blood Pressure 1: 120/78 Code: 8480-6 BMI: 29.0 Code: 35856-0 Heart Rate 1: 68 bpm Height: 5'5" SpO2: 96% Weight: 174 lbs 11/28/2017 Blood Pressure 1: 122/98 Code: 8480-6 BMI: 31.0 Code: 53352-9 Heart Rate 1: 89 bpm Height: 5'5" SpO2: 98% Waist Measure (cm): 91 cm Weight: 186 lbs 08/29/2017 Blood Pressure 1: 146/80 Code: 8480-6 BMI: 29.5 Code: 51516-1 Heart Rate 1: 68 bpm Height: 5'5" SpO2: 98% Temperature: 36.6 (C) / 97.8 (F) Weight: 177 lbs 06/13/2017 Blood Pressure 1: 138/76 Code: 8480-6 BMI: 29.6 Code: 25654-3 Heart Rate 1: 63 bpm Height: 5'5" SpO2: 95% Weight: 178 lbs 02/16/2017 Blood Pressure 1: 128/80 Code: 8480-6 BMI: 29.9 Code: 97342-0 Heart Rate 1: 77 bpm Height: 5'5" SpO2: 96% Weight: 179 lbs 8 oz 02/06/2017 Blood Pressure 1: 140/80 Code: 8480-6 BMI: 29.8 Code: 54726-1 Heart Rate 1: 72 bpm Height: 5'5" SpO2: 97% Weight: 179 lbs 11/17/2016 Blood Pressure 1: 130/72 Code: 8480-6 BMI: 29.6 Code: 97361-8 Heart Rate 1: 62 bpm Height: 5'5" SpO2: 98% Waist Measure (cm): 91 cm Weight: 178 lbs 10/12/2016 Blood Pressure 1: 128/78 Code: 8480-6 BMI: 28.5 Code: 77022-5 Heart Rate 1: 62 bpm Height: 5'5" SpO2: 97% Weight: 171 lbs 09/05/2016 Blood Pressure 1: 122/70 Code: 8480-6 BMI: 28.0 Code: 44244-2 Heart Rate 1: 65 bpm Height: 5'5" SpO2: 94% Weight: 168 lbs 06/21/2016 Blood Pressure 1: 120/82 Code: 8480-6 BMI: 28.3 Code: 85920-1 Heart Rate 1: 65 bpm Height: 5'5" SpO2: 97% Weight: 170 lbs 05/24/2016 Blood Pressure 1: 136/80 Code: 8480-6 BMI: 28.1 Code: 35934-2 Heart Rate 1: 71 bpm Height: 5'5" SpO2: 96% Weight: 169 lbs 05/10/2016 Blood Pressure 1: 120/82 Code: 8480-6 BMI: 27.6 Code: 54800-0 Heart Rate 1: 86 bpm Height: 5'5" SpO2: 95% Weight: 166 lbs 05/03/2016 Blood Pressure 1: 124/78 Code: 8480-6 BMI: 28.1 Code: 10934-0 Heart Rate 1: 88 bpm Height: 5'5" SpO2: 97% Weight: 169 lbs 11/13/2015 Blood Pressure 1: 130/60 Code: 8480-6 BMI: 30.0 Code: 78156-0 Heart Rate 1: 7 bpm Height: 5'5" Waist Measure (cm): 97 cm Weight: 180 lbs 07/23/2015 Blood Pressure 1: 124/70 Code: 8480-6 BMI: 29.6 Code: 01411-0 Heart Rate 1: 74 bpm Height: 5'5" SpO2: 96% Temperature: 36.7 (C) / 98.1 (F) Weight: 178 lbs 07/06/2015 Blood Pressure 1: 138/78 Code: 8480-6 BMI: 29.6 Code: 58229-7 Heart Rate 1: 84 bpm Height: 5'5" SpO2: 96% Weight: 178 lbs 05/26/2015 Blood Pressure 1: 122/80 Code: 8480-6 BMI: 29.6 Code: 26764-3 Heart Rate 1: 84 bpm Height: 5'5" Weight: 178 lbs 02/16/2015 Blood Pressure 1: 124/82 Code: 8480-6 BMI: 29.0 Code: 01822-0 Heart Rate 1: 68 bpm Height: 5'5" Weight: 174 lbs 12/10/2014 Blood Pressure 1: 112/64 Code: 8480-6 BMI: 28.6 Code: 75710-1 Heart Rate 1: 80 bpm Height: 5'5" Weight: 172 lbs 10/16/2014 Blood Pressure 1: 128/84 Code: 8480-6 Heart Rate 1: 64 bpm Weight: 172 lbs 10/09/2014 Blood Pressure 1: 136/90 Code: 8480-6 BMI: 28.6 Code: 45786-7 Heart Rate 1: 76 bpm Height: 5'5" Weight: 172 lbs 08/26/2014 Blood Pressure 1: 118/72 Code: 8480-6 BMI: 29.0 Code: 73612-9 Heart Rate 1: 76 bpm Height: 5'5" Weight: 174 lbs 05/16/2014 Blood Pressure 1: 110/72 Code: 8480-6 BMI: 29.0 Code: 53785-1 Height: 5'5" Weight: 174 lbs 04/23/2014 Blood Pressure 1: 124/70 Code: 8480-6 BMI: 29.0 Code: 57048-4 Heart Rate 1: 72 bpm Height: 5'5" Weight: 174 lbs 04/15/2014 Temperature: 36.5 (C) / 97.7 (F) 01/21/2014 Blood Pressure 1: 98/62 Code: 8480-6 BMI: 29.0 Code: 57223- 5 Heart Rate 1: 84 bpm Height: 5'5" Temperature: 37.1 (C) / 98.7 (F) Weight: 174 lbs 12/05/2013 Blood Pressure 1: 138/88 Code: 8480-6 BMI: 29.0 Code: 73533-3 Heart Rate 1: 60 bpm Height: 5'5" Weight: 174 lbs 11/05/2013 Blood Pressure 1: 118/80 Code: 8480-6 BMI: 28.8 Code: 44560-5 Heart Rate 1: 76 bpm Height: 5'5" Weight: 173 lbs 10/15/2013 Blood Pressure 1: 120/78 Code: 8480-6 BMI: 29.1 Code: 38641-9 Heart Rate 1: 88 bpm Height: 5'5" Weight: 175 lbs 09/30/2013 Blood Pressure 1: 112/84 Code: 8480-6 BMI: 29.1 Code: 99072-1 Heart Rate 1: 68 bpm Height: 5'5" Weight: 175 lbs 03/13/2013 Blood Pressure 1: 112/84 Code: 8480-6 BMI: 28.6 Code: 06135-4 Heart Rate 1: 64 bpm Height: 5'5" Weight: 173 lbs 10/04/2012 Blood Pressure 1: 120/72 Code: 8480-6 BMI: 28.0 Code: 47826-8 Heart Rate 1: 64 bpm Height: 5'5" Weight: 169 lbs 08/22/2011 Blood Pressure 1: 134/84 Code: 8480-6 BMI: 27.5 Code: 85674-0 Heart Rate 1: 68 bpm Height: 5'5" Respiratory Rate: 16 bpm Weight: 166 lbs 8 oz 06/17/2011 Blood Pressure 1: 120/76 Code: 8480-6 BMI: 27.0 Code: 59286-6 Heart Rate 1: 58 bpm Height: 5'5" [...] Directive data Encounters Encounter Performer Location Codes ([id number]) 99844 EST. PATIENT, LEVEL III Diagnosis: Cough[ICD10: R05] Diagnosis: Acute recurrent maxillary sinusitis[ICD10: J01.01] Suma Alvarado MD, [facility] CPT-4: 95776 09/11/2018 32635 EST. PATIENT, LEVEL III Diagnosis: Pain in right hand[ICD10: M79.641] Gina Alvarado MD, [facility] CPT-4: 90756 07/12/2018 ([id number]) 22412 EST. PATIENT, LEVEL II Diagnosis: Dysuria[ICD10: R30.0] Suma Alvarado MD, [facility] CPT-4: 94776 05/07/2018 94196 EST. PATIENT, LEVEL IV Diagnosis: Tinnitus, bilateral[ICD10: H93.13] Diagnosis: Other allergic rhinitis[ICD10: J30.89] Gina Alvarado MD, [facility] CPT- 4: 69557 02/21/2018 37303 EST. PATIENT, LEVEL III Diagnosis: Acute laryngopharyngitis[ICD10: J06.0] Diagnosis: Other allergic rhinitis[ICD10: J30.89] Gina Alvarado MD, [facility] CPT- 4: 16733 08/29/2017 ([id number]) 06849 EST. PATIENT, LEVEL IV Diagnosis: Postprocedural hypothyroidism[ICD10: E89.0] Diagnosis: Major depressive disorder, recurrent, moderate[ICD10: F33.1] Diagnosis: Generalized anxiety disorder[ICD10: F41.1] Elina Alvarado MD, [facility] CPT-4: 81724 06/13/2017 ([id number]) 10206 EST. PATIENT, LEVEL IV Diagnosis: Pelvic and perineal pain[ICD10: R10.2] Diagnosis: Acute vaginitis[ICD10: N76.0] Suma Alvarado MD, [facility] CPT-4: 18341 02/16/2017 ([id number]) 50709 EST. PATIENT, LEVEL III Diagnosis: Postprocedural hypothyroidism[ICD10: E89.0] Diagnosis: Major depressive disorder, recurrent, moderate[ICD10: F33.1] Elina Alvarado MD, [facility] CPT-4: 07546 02/06/2017 ([id number]) 18175 EST. PATIENT, LEVEL III Diagnosis: Generalized anxiety disorder[ICD10: F41.1] Elina Alvarado MD, [facility] CPT-4: 81183 10/12/2016 ([id number]) 07578 EST. PATIENT, LEVEL III Diagnosis: Cough[ICD10: R05] Diagnosis: Acute upper respiratory infection, unspecified[ICD10: J06.9] Suma Alvarado MD, [facility] CPT-4: 56133 09/05/2016 ([id number]) 84580 EST. PATIENT, LEVEL III Diagnosis: Generalized anxiety disorder[ICD10: F41.1] Diagnosis: Major depressive disorder, recurrent, moderate[ICD10: F33.1] Diagnosis: Postprocedural hypothyroidism[ICD10: E89.0] Elina Alvarado MD, [facility] CPT-4: 19470 06/21/2016 ([id number]) 55823 EST. PATIENT, LEVEL III Diagnosis: Major depressive disorder, recurrent, moderate[ICD10: F33.1] Elina Alvarado MD, [facility] CPT-4: 24255 05/24/2016 ([id number]) 08876 EST. PATIENT, LEVEL III Diagnosis: Major depressive disorder, recurrent, moderate[ICD10: F33.1] Elina Alvarado MD, [facility] CPT-4: 26121 05/10/2016 ([id number]) 21266 EST. PATIENT, LEVEL III Diagnosis: Generalized anxiety disorder[ICD10: F41.1] Diagnosis: Major depressive disorder, recurrent, moderate[ICD10: F33.1] Suma Alvarado MD, [facility] CPT-4: 67293 05/03/2016 ([id number]) 21559 EST. PATIENT, LEVEL III Diagnosis: Cough[ICD10: R05] Diagnosis: Acute upper respiratory infection, unspecified[ICD10: J06.9] Suma Alvarado MD, [facility] CPT-4: 36085 07/23/2015 ([id number]) 06351 EST. PATIENT, LEVEL III Diagnosis: Hypothyroidism, unspecified[ICD10: E03.9] Diagnosis: Generalized anxiety disorder[ICD10: F41.1] Diagnosis: Other depressive episodes[ICD10: F32.8] Elina Alvarado MD, [facility] CPT-4: 63142 07/06/2015 ([id number]) 38479 EST. PATIENT, LEVEL IV Diagnosis: Generalized anxiety disorder[ICD10: F41.1] Diagnosis: Major depressive disorder, recurrent, unspecified[ICD10: F33.9] Elina Alvarado MD, [facility] CPT-4: 57541 05/26/2015 ([id number]) 47689 EST. PATIENT, LEVEL II Diagnosis: 2Nd degree burn of multiple fingers of right hand not including thumb[ICD9: 944.23] Suma Alvarado MD, [facility] CPT-4: 58595 02/16/2015 ([id number]) 34257 EST. PATIENT, LEVEL IV Diagnosis: Hammertoe[ICD9: 735.4] Diagnosis: Foot pain[ICD9: 729.5] Diagnosis: HYPOTHYROIDISM[ICD9: 244.9] Elina Alvarado MD, [facility] CPT-4: 34563 12/10/2014 ([id number]) 02520 EST. PATIENT, LEVEL III Diagnosis: Urinary incontinence[ICD9: 788.30] Diagnosis: Pelvic pain in female[ICD9: 625.9] Elina Alvarado MD, [facility] CPT- 4: 81012 10/16/2014 ([id number]) 01497 EST. PATIENT, LEVEL III Diagnosis: Urinary incontinence[ICD9: 788.30] Diagnosis: Pelvic pain in female[ICD9: 625.9] Suma Alvarado MD, [facility] CPT- 4: 66346 10/09/2014 ([id number]) 16846 EST. PATIENT, LEVEL III Diagnosis: HYPOTHYROIDISM[ICD9: 244.9] Elina Alvarado MD, [facility] CPT-4: 69221 08/26/2014 ([id number]) 91266 EST. PATIENT, LEVEL III Diagnosis: Neck pain[ICD9: 723.1] Diagnosis: Muscle tension headache[ICD9: 307.81] Suma Alvarado MD, [facility] CPT-4: 76260 05/16/2014 ([id number]) 62195 EST. PATIENT, LEVEL IV Diagnosis: Arthropod bite[ICD9: 919.4] Diagnosis: Poison diana dermatitis[ICD9: 692.6] Diagnosis: Arthralgia[ICD9: 719.40] Diagnosis: Myalgia[ICD9: 729.1] Elina Alvarado MD, [facility] CPT-4: 44257 04/23/2014 ([id number]) 85806 EST. PATIENT, LEVEL III Diagnosis: ACUTE URI[ICD9: 465.9] Diagnosis: COUGH[ICD9: 786.2] Suma Alvarado MD, [facility] CPT-4: 59083 01/21/2014 ([id number]) 12772 EST. PATIENT, LEVEL III Diagnosis: HYPOTHYROIDISM[ICD9: 244.9] Diagnosis: GENERALIZED ANXIETY DISEASE[ICD9: 300.02] Elina Alvarado MD, [facility] CPT-4: 22185 12/05/2013 ([id number]) 45256 EST. PATIENT, LEVEL III Diagnosis: GENERALIZED ANXIETY DISEASE[ICD9: 300.02] Diagnosis: DEPRESSIVE DISORDER NEC[ICD9: 311] Elina Alvarado MD, [facility] CPT- 4: 44655 11/05/2013 ([id number]) 61454 EST. PATIENT, LEVEL III Diagnosis: HYPOTHYROIDISM[ICD9: 244.9] Elina Alvarado MD [facility] CPT-4: 52745 10/15/2013 ([id number]) Miscellaneous no charge Diagnosis: Colon cancer screening[ICD9: V76.51] Elina Alvarado MD [facility] CPT- 4: 27573 10/10/2013 ([id number]) 58788 EST. PATIENT, LEVEL IV Diagnosis: HYPOTHYROIDISM[ICD9: 244.9] Diagnosis: DEPRESSIVE DISORDER NEC[ICD9: 311] Diagnosis: GENERALIZED ANXIETY DISEASE[ICD9: 300.02] Diagnosis: HYPERLIPIDEMIA[ICD9: 272.4] Elina Alvarado MD, [facility] CPT-4: 12033 03/13/2013 ([id number]) 67977 EST. PATIENT, LEVEL IV Diagnosis: HYPERLIPIDEMIA[ICD9: 272.4] Diagnosis: HYPOTHYROIDISM[ICD9: 244.9] Diagnosis: GENERALIZED ANXIETY DISEASE[ICD9: 300.02] Diagnosis: DEPRESSIVE DISORDER NEC[ICD9: 311] Elina Alvarado MD, [facility] CPT- 4: 78433 10/04/2012 ([id number]) 51164 EST. PATIENT, LEVEL III Diagnosis: VICTOR HUGO (generalized anxiety disorder)[ICD9: 300.02] Diagnosis: Chronic depression[ICD9: 311] [facility] CPT-4: 79894 08/22/2011 20616 EST. PATIENT, LEVEL IV Diagnosis: CHEST PAIN NEC[ICD9: 786.59] Diagnosis: HYPERLIPIDEMIA[ICD9: 272.4] Diagnosis: POSTSURGICAL HYPOTHYROIDISM[ICD9: 244.0] [facility] CPT-4: 84600 06/17/2011 Plan of Care Planned Activity Notes Codes Status Date Visit Plan: Sinusitis - Pt has acute infection - pain in face, maxillary region, Pt informed to use decongestant, RX given to patient, sinus rinses also recommended. Call if symptoms do not show improvement. 09/11/2018 Patient Education: Patient Medication Summary Completed 09/11/2018 Visit Plan: Right hand pain - ongoing - will send for x-ray - The pt is to use prn antiinflammatories to manage acute pain. The patient is to call the office if the pain is worsening or does not improve. 07/12/2018 Appointment: Gina Kern WPtel: [facility]0 [facility]66[facility] (15 min) Moderate 07/12/2018 Patient Education: Patient Medication Summary Completed 07/12/2018 Care Plan: X-RAY EXAM OF HAND LOINC : 13568-2 Pending 07/12/2018 Visit Plan: Dysuria- UA negative -symptoms resolved -instructed patient to continue with adequate fluid intake and call if symptoms return. Patient verbalized understanding of plan. 05/07/2018 Appointment: Suma Choi WPtel: [facility]8 [phone] (15 min) Moderate 05/07/2018 Patient Education: Patient Medication Summary Completed 05/07/2018 Appointment: Injection 04/24/2018 Patient Education: Patient Medication Summary Completed 04/24/2018 Referral: Peter Rubio [id number] Referral Completed 03/22/2018 Visit Plan: Allergies - [...] hearing testing 02/21/2018 Appointment: Gina Kern WPtel: [facility] (15 min) Moderate 02/21/2018 Patient Education: Patient Medication Summary Completed 02/21/2018 Care Plan: Referral Order SNOMED-CT : [id number] Pending 02/21/2018 Appointment: Elina Alvarado WPtel: [address] [place] [address] (15 min) Moderate 12/14/2017 Visit Plan: Medicare [...] Summary Completed 11/28/2017 Appointment: Gina Kern WPtel: [facility] - Annual Wellness Visit 11/21/2017 Visit [...] spray. 08/29/2017 Appointment: Gina Kern WPtel: [phone] [facility] (15 min) Moderate 08/29/2017 Patient Education: Patient [...] with counseling. 06/13/2017 Appointment: [facility]el: [phone] (15 min) Moderate 06/13/2017 Patient Education: Patient Medication Summary Completed 06/13/2017 Appointment: Injection 06/07/2017 Patient Education: Patient Medication Summary Completed 06/07/2017 Visit Plan: Pelvic pain-UA negative-pap done today in the office- will start patient on flagyl for bacterial vaginosis-instructed patient to call if symptoms do not resolve or if any worse. Patient verbalized understanding of plan. 02/16/2017 Appointment: Suma Choi WPtel: [phone] [phone] (30 min) Complex 02/16/2017 Patient Education: Patient [...] 02/06/2017 Appointment: [facility] Alvarado [facility]Ptel: [phone] (15 min) Moderate 02/06/2017 Patient Education: Patient [...] care surrogate. 11/17/2016 Appointment: Gina Kern WPtel: [facility] [facility] - Annual Wellness Visit 11/17/2016 Patient [...] current medications. 10/12/2016 Appointment: El[facility] Alvarado WPtel: [phone] [facility] (15 min) Moderate 10/12/2016 Patient Education: Patient [...] : J06.9 09/05/2016 Appointment: Suma Choi WPtel: [phone] [place] [phone] [place] (10 min) Simple 09/05/2016 Patient Education: [...] with lexapro 06/21/2016 Appointment: Elina Alvarado WPtel: [phone] [facility]66[facility] (15 min) Moderate 06/21/2016 Patient Education: Patient Medication Summary Completed 06/21/2016 Visit Plan: Depression - improved with lexapro - continue with current treatment and counseling. 05/24/2016 Appointment: Elina Alvarado WPtel: [phone] [facility] [place] (15 min) Moderate 05/24/2016 Patient Education: Patient Medication Summary Completed 05/24/2016 Visit Plan: Depression - improved on the Lexapro - stop ativan - start on xanax 05/10/2016 Appointment: Elina Alvarado WPtel: [phone] [facility]66[facility] (15 min) Moderate 05/10/2016 Patient Education: Patient [...] Summary Completed 05/03/2016 Appointment: Suma Choi WPtel: [phone] [place] (15 min) Moderate 02/26/2016 Visit Plan: [...] and to maintain independece in the home. Btpzotjiei-gwfadlewlhuv-smjcwy to wellbutrin Pneumonia 13 administered today in [...] and to maintain independece in the home. Vysqgffxxn-hnzsgwoquzgj-skqsqi to wellbutrin Pneumonia 13 administered today in the office 11/13/2015 Appointment: [facility] - Annual Wellness Visit 11/13/2015 Patient Education: Patient Medication Summary Completed 11/13/2015 Patient Education: Obesity Completed 11/13/2015 Care Plan: SCREENINGMAMMOGRAPHYDIGITAL LOINC : 62867-9 Ordered 11/13/2015 Appointment: Lab Draw 08/10/2015 Visit [...] current medications. 07/06/2015 Appointment: Elina Alvarado WPtel: [phone] [facility] (30 min) Complex 07/06/2015 Patient Education: Patient [...] upon discharge. 12/10/2014 Appointment: [facility] Alvarado WPtel: [phone] [place] Surgical Clearance 12/10/2014 Patient Education: Patient Medication Summary Completed 12/10/2014 Visit Plan: Urinary incontinence and Pelvic discomfort - recommended pt to have evaluation by Dr. Brandt - pt agreeable to referral. Pt is to call if abdominal pain does not improve. 10/16/2014 Appointment: Elina Alvarado WPtel: [phone] [facility] [place] Follow up 10/16/2014 Patient Education: Patient Medication Summary Completed 10/16/2014 Care Plan: Referral Order SNOMED-CT : [id number] Ordered 10/16/2014 Patient Education: Patient Medication Summary Completed 10/10/2014 Visit Plan: Pelvic pain-history of mesh implant-recommend CT abd/pelvis to evaluate for any abnormality-refer to Dr Woods if pain does not improve Urinary incontinence-check UA with C&S if indicated 10/09/2014 Patient Education: Patient Medication Summary Completed 10/09/2014 Care Plan: CT ABD & PELV 1/> REGNS LOINC : 93799-5 Ordered 10/09/2014 Visit Plan: Hypothyroidism - pt with chronic hypothyroidism, continue with current medication, will monitor pt to signs or symptoms of lack of adequate supplementation. Pt is to continue with current dose of medication unless directed otherwise. Check labs at regular intervals wither q 3 months or q 6 months based on previous levels of control. 08/26/2014 Appointment: Elina Alvarado WPtel: [phone] [facility] Follow up 08/26/2014 Patient Education: Patient Medication [...] with screening. 04/23/2014 Appointment: Elina Alvarado WPtel: [facility]5 [facility] Sick 04/23/2014 Patient Education: Patient Medication Summary Completed 04/23/2014 Care Plan: Referral Order SNOMED-CT : [id number] Ordered 04/23/2014 Appointment: Nurse Visit 04/15/2014 Patient Education: Patient Medication Summary Completed 04/15/2014 Appointment: Elina Alvarado WPtel: [facility]5 [facility] [place] Injection 02/11/2014 Patient Education: Patient [...] current treatment. 12/05/2013 Appointment: Elina Alvarado WPtel: [address] [place], [place] [phone] Follow up 12/05/2013 Patient Education: Patient Medication [...] above medications. 11/05/2013 Appointment: Elina Alvarado WPtel: [facility]5 [facility] Follow up 11/05/2013 Patient Education: Patient [...] of control. 10/15/2013 Appointment: Elina Alvarado WPtel: [facility]3 [facility] 10/15/2013 Patient Education: Patient Medication [...] care surrogate. 09/30/2013 Appointment: Elina Alvarado WPtel: [phone] [facility] [facility] - Initial Preventive Physical Exam 09/30/2013 Patient Education: Patient Medication Summary Completed 09/30/2013 Appointment: Elina Alvarado WPtel: [phone] [facility] [facility] - Initial Preventive Physical Exam 09/11/2013 [...] prn use. 03/13/2013 Appointment: Elina Alvarado WPtel: [phone] [facility] Follow up 03/13/2013 Patient Education: Patient [...] current medications. 10/04/2012 Appointment: El[facility] Alvarado WPtel: [phone] Follow up 10/04/2012 Patient Education: Patient Medication [...] anxiety attacks. 08/22/2011 Appointment: Elina Alvarado WPtel: [address] [place] [address] Other 08/22/2011 Patient Education: Patient Medication Summary [...] THYROID ULTRASOUND 06/17/2011 Appointment: Elina Alvarado WPtel: [address] [place], [place] [phone] Other 06/17/2011 Patient Education: Patient Medication Summary Completed 06/17/2011 Referral: Raimundo Brandt WPtel: Referral Appointment Requested Referral: Peter Rubio [facility] Referral Initiated Referral: Dr. Phelps [...] and to maintain independece in the home. Utogpfuziz-uxxgmrqcaklc-wswgzt to wellbutrin Pneumonia 13 administered today in [...] and to maintain independece in the home. Dsnojpmyva-ewqqgvaiyzje-bihlgf to wellbutrin Pneumonia 13 administered today in [...] DOPA paperwork for health care surrogate. . URI - Pt advised to increase [...] to continue her medications upon discharge. . Hyperlipidemia - pt has been counseled [...] Call if symptoms do not resolve. . Pelvic pain-history of mesh implant-recommend CT abd/pelvis to evaluate for any abnormality-refer to Dr Woods if pain does not improve Urinary incontinence-check UA with C&S if indicated . Right hand pain - ongoing - will send for x-ray - The pt is to use prn antiinflammatories to manage acute pain. The patient is to call the office if the pain is worsening or does not improve. . Anxiety - the patient has uncontrolled [...] PRN basis for severe anxiety attacks. . Chronic Depression and anxiety - the [...] - continue with current treatment and counseling. ROCEPHIN INJECTION TODAY IN THE OFFICE, START [...] symptoms return. Patient verbalized understanding of plan. keflex-dillons . [...] call if abdominal pain does not improve. increase synthroid to 112 mcg daily. . [...] months based on previous levels of control. LEXAPRO 20MG 1/2 TAB DAILY X 1 [...] if painful urination persists [facility] Call if symptoms do not resolve completely [...]
--- OUTSIDE RECORDS SUMMARY | 2018-12-27 09:54 | XMS REPORT | CCD ---
Author Author [facility] Organization [facility] Address [address] [place] [address] Phone Care Team Providers Care Supervisor [employer] Name Role Phone PP Unavailable CCM Unavailable Summary Purpose Interface Exchange Insurance Providers Payer name Policy type / Coverage type Covered green party ID Effective Begin Date Effective End Date WPS Medicare Part B [id number] 2018 Unknown [facility] [id number] 2018 Unknown Family history Sister Diagnosis Age [...] Description Effective Dates Tobacco history SNOMED CT: 5620710 Former smoker quit 2 years ago, social smoker, 1 pack per month 200709/30/2013 Employment 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 Marital status Unknown 06/17/[address]: 789391 Currently drinks alcohol 2 beers/week 06/17/2011 Has [...] Codes Condition Status Onset Date Resolved Date Dysuria ICD-9: 788.1 ICD-10: R30.0 Active 05/07/2018 [...] 02/16/2017 Unknown Pelvic and perineal pain ICD-9: [id number] ICD-10: R10.2 Active 02/16/2017 Unknown Hypothyroidism, unspecified [...] Problems Condition Codes Effective Dates Condition Status Dysuria ICD-9: 788.1 ICD-10: R30.0 05/07/2018 Active [...] 02/16/2017 Active Pelvic and perineal pain ICD-9: [id number] ICD-10: R10.2 02/16/2017 Active Hypothyroidism, unspecified ICD-9: [...] Start Date Stop Date Status Fill Instructions naproxen 500 mg tablet RxNorm: 816230 1 Tablet(s) PO BID 07/12/2018 07/16/2018 Active Synthroid 112 mcg tablet RxNorm: 235036 TAKE ONE TABLET BY MOUTH DAILY 07/02/2018 12/28/2018 Active Lipitor 10 mg tablet RxNorm: 709547 TAKE ONE TABLET BY MOUTH EVERY DAY 06/06/2018 05/31/2019 Active Lexapro 20 mg tablet RxNorm: 490110 TAKE ONE TABLET BY MOUTH DAILY 05/08/2018 12/03/2018 Active Synthroid 100 mcg tablet RxNorm: 673800 TAKE ONE TABLET BY MOUTH EVERY OTHER DAY 04/10/2018 10/06/2018 Active Synthroid 100 mcg tablet RxNorm: 153269 1 Tablet(s) PO every other day 12/11/2017 04/09/2018 Inactive QOD -alternate with 112mcg DISPENSE BRAND NAME Synthroid 112 mcg tablet RxNorm: 727527 1 Tablet(s) every other day 11/28/2017 03/27/2018 Inactive QOD alternate with 100mcg Synthroid 100 mcg tablet RxNorm: 514344 1 Tablet(s) PO every other day 11/28/2017 12/10/2017 Inactive QOD -alternate with 112mcg DISPENSE BRAND NAME Synthroid 100 mcg tablet RxNorm: 089913 1 Tablet(s) PO every other day 11/28/2017 11/27/2017 Inactive QOD -alternate with 112mcg Xanax 0.5 mg tablet RxNorm: 774298 1 Tablet(s) PO QID as needed anxiety 11/14/2017 01/12/2018 Inactive Lexapro 20 mg tablet RxNorm: 097325 TAKE ONE TABLET BY MOUTH DAILY 11/13/2017 05/07/2018 Inactive Xanax 0.5 mg tablet RxNorm: 364284 1 Tablet(s) PO QID as needed anxiety 09/11/2017 11/08/2017 Inactive Tamiflu 75 mg capsule RxNorm: 155420 1 Capsule(s) PO BID 08/29/2017 09/02/2017 Inactive Synthroid 112 mcg tablet RxNorm: 401263 1 Tablet(s) daily 08/14/2017 11/27/2017 Inactive fyi - medication changed, refill x 6 - #30 pills Synthroid 112 mcg tablet RxNorm: 656854 1 Tablet(s) daily 06/13/2017 08/13/2017 Inactive fyi - medication changed, refill x 6 - #30 pills Lexapro 20 mg tablet RxNorm: 190150 TAKE ONE TABLET BY MOUTH DAILY 06/09/2017 11/05/2017 Inactive Synthroid 112 mcg tablet RxNorm: 792744 TAKE 1 TABLET BY MOUTH DAILY EXCEPT TAKE 1/2 TABLET ON MONDAY, MONDAY, AND Monday05/22/2017 06/12/2017 Inactive Lipitor 10 mg tablet RxNorm: 288917 TAKE ONE TABLET BY MOUTH EVERY DAY 03/08/2017 05/31/2018 Inactive Flagyl 500 mg tablet RxNorm: 769799 1 Tablet(s) PO TID 02/16/2017 02/22/2017 Inactive Xanax 0.5 mg tablet RxNorm: 312251 1 Tablet(s) PO QID as needed anxiety 12/23/2016 03/21/2017 Inactive Synthroid 112 mcg tablet RxNorm: 745606 TAKE 1 TABLET BY MOUTH DAILY EXCEPT FOR TAKE 1/2 TABLET ON MONDAY, MONDAY, AND Monday12/23/2016 04/13/2017 Inactive Lexapro 20 mg tablet RxNorm: 920824 TAKE ONE TABLET BY MOUTH DAILY 11/29/2016 05/27/2017 Inactive Zithromax Z-Que 250 mg tablet RxNorm: 530567 1 Tablet(s) PO UD 09/05/2016 09/09/2016 Inactive zpack Kenalog 40 mg/mL suspension for injection RxNorm: 7522915 1 Milliliter(s) Inj 09/05/2016 09/05/2016 Inactive Lipitor 10 mg tablet RxNorm: 875827 TAKE ONE TABLET BY MOUTH EVERY DAY 08/30/2016 02/25/2017 Inactive Ativan 1 mg tablet RxNorm: 394809 1 Tablet(s) PO Q6 PRN as needed TAKE ONE TABLET BY MOUTH THREE TIMES A DAY OR EVERY 6 HOURS NEEDED FOR ANXIETY 08/30/2016 12/22/2016 Inactive Synthroid 112 mcg tablet RxNorm: 359063 1 Tablet(s) PO daily except one-half tab on /Sat 08/23/2016 12/12/2016 Inactive will refill when needed Lexapro 20 mg tablet RxNorm: 523418 TAKE ONE TABLET BY MOUTH DAILY 08/02/2016 11/28/2016 Inactive Synthroid 112 mcg tablet RxNorm: 595414 1 Tablet(s) PO daily except 1/2 tab mon and sat 05/25/2016 08/22/2016 Inactive will refill when needed Xanax 0.5 mg tablet RxNorm: 921222 1 Tablet(s) PO QID as needed anxiety 05/10/2016 08/29/2016 Inactive Lexapro 20 mg tablet RxNorm: 811085 1 Tablet(s) PO daily 05/03/2016 07/31/2016 Inactive 1/2 tab x 1 week then increase to a full pill daily buspirone 5 mg tablet RxNorm: 586210 TAKE ONE-HALF TABLET BY MOUTH TWICE A DAY 03/15/2016 05/02/2016 Inactive Synthroid 112 mcg tablet RxNorm: 700948 1 Tablet(s) PO daily 02/25/2016 05/24/2016 Inactive Ativan 1 mg tablet RxNorm: 350128 Tablet(s) TAKE ONE TABLET BY MOUTH THREE TIMES A DAY OR EVERY 6 HOURS NEEDED FOR ANXIETY 02/04/2016 05/08/2016 Inactive Synthroid 125 mcg tablet RxNorm: 851012 TAKE ONE TABLET BY MOUTH TWICE WEEKLY 01/11/2016 02/24/2016 Inactive Synthroid 112 mcg tablet RxNorm: 797033 TAKE ONE TABLET BY MOUTH FIVE DAYS A WEEK 01/11/2016 02/24/2016 Inactive Wellbutrin 75 mg tablet RxNorm: 679914 TAKE ONE TABLET BY MOUTH TWICE A DAY 01/11/2016 05/02/2016 Inactive Ativan 1 mg tablet RxNorm: 423099 TAKE ONE TABLET BY MOUTH THREE TIMES A DAY OR EVERY 6 HOURS NEEDED 12/03/2015 12/27/2015 Inactive Lipitor 10 mg tablet RxNorm: 696762 TAKE ONE TABLET BY MOUTH EVERY DAY 12/03/2015 08/28/2016 Inactive Ativan 1 mg tablet RxNorm: 675079 Tablet(s) TAKE ONE TABLET BY MOUTH THREE TIMES A DAY AND TAKE ONE TABLET BY MOUTH EVERY 6 HOURS NEEDED FOR ANXIETY 12/03/2015 12/02/2015 Inactive (Response to an electronic controlled substance refill request - RxReferenceNumber: [id number]) Wellbutrin 75 mg tablet RxNorm: 020682 1 Tablet(s) PO BID 11/13/2015 01/10/2016 Inactive Ativan 1 mg tablet RxNorm: 284389 Tablet(s) TAKE ONE TABLET BY MOUTH THREE TIMES A DAY AND TAKE ONE TABLET BY MOUTH EVERY 6 HOURS NEEDED FOR ANXIETY 09/23/2015 10/30/2015 Inactive (Response to an electronic controlled substance refill request - RxReferenceNumber: [id number]) buspirone 5 mg tablet RxNorm: 099667 TAKE ONE-HALF TABLET BY MOUTH TWICE A DAY 08/18/2015 03/01/2016 Inactive ceftriaxone 500 mg solution for injection RxNorm: 4563271 Inj 07/23/2015 07/23/2015 Inactive Zithromax Z-Que 250 mg tablet RxNorm: 179745 1 Tablet(s) PO UD 07/23/2015 07/27/2015 Inactive GIORGIO buspirone 5 mg tablet RxNorm: 749454 1 Tablet(s) PO daily 07/06/2015 10/03/2015 Inactive buspirone 5 mg tablet RxNorm: 663420 1/2 Tablet(s) PO BID 05/26/2015 07/05/2015 Inactive Lipitor 10 mg tablet RxNorm: 860561 TAKE ONE TABLET BY MOUTH EVERY DAY 04/23/2015 10/19/2015 Inactive Ativan 1 mg tablet RxNorm: 931707 Tablet(s) TAKE ONE TABLET BY MOUTH THREE TIMES A DAY AND TAKE ONE TABLET BY MOUTH EVERY 6 HOURS NEEDED FOR ANXIETY 02/23/2015 04/01/2015 Inactive (Response to an electronic controlled substance refill request - RxReferenceNumber: [id number]) Synthroid 125 mcg tablet RxNorm: 498589 1 Tablet(s) PO UD twice weekly 12/10/2014 06/07/2015 Inactive Synthroid 112 mcg tablet RxNorm: 349121 1 Tablet(s) PO UD TAKE ONE TABLET BY MOUTH 5 days a week 12/10/2014 12/04/2015 Inactive Lexapro 20 mg tablet RxNorm: 560593 1 Tablet(s) PO daily 11/26/2014 11/12/2015 Inactive Lipitor 10 mg tablet RxNorm: 920599 TAKE ONE TABLET BY MOUTH EVERY DAY 10/21/2014 04/18/2015 Inactive amoxicillin 500 mg capsule RxNorm: 311999 1 Capsule(s) PO TID 10/15/2014 10/21/2014 Inactive take probiotic BID x 7 days during abt period amoxicillin 500 mg capsule RxNorm: 397999 1 Capsule(s) PO TID 10/15/2014 10/14/2014 Inactive take probiotic BID x 7 days during abt period Ativan 1 mg tablet RxNorm: 573180 TAKE ONE TABLET BY MOUTH THREE TIMES A DAY AND TAKE ONE TABLET BY MOUTH EVERY 6 HOURS NEEDED FOR ANXIETY 08/21/2014 09/28/2014 Inactive (Response to an electronic controlled substance refill request - RxReferenceNumber: [id number]) Ativan 1 mg tablet RxNorm: 145687 1 Tablet(s) PO tid and Q6 PRN as needed 08/18/2014 08/21/2014 Inactive doxycycline hyclate 100 mg tablet RxNorm: 649951 1 Tablet(s) PO BID 04/23/2014 05/25/2015 Inactive prednisone 10 mg tablets in a dose pack RxNorm: 771956 1 Tablet(s) PO 02/14/2014 05/25/2015 Inactive Kenalog 40 mg/mL suspension for injection RxNorm: 4659427 1 Milliliter(s) Inj 02/11/2014 02/11/2014 Inactive Keflex 500 mg capsule RxNorm: 144546 1 Capsule(s) PO TID 01/21/2014 01/27/2014 Inactive Kenalog 40 mg/mL suspension for injection RxNorm: 1240558 Milliliter(s) Inj 01/21/2014 01/21/2014 Inactive Synthroid 112 mcg tablet RxNorm: 946851 1 Tablet(s) PO daily TAKE ONE TABLET BY MOUTH EVERY DAY 12/05/2013 11/29/2014 Inactive Ativan 1 mg tablet RxNorm: 251349 1 Tablet(s) PO Q6 PRN 11/05/2013 02/02/2014 Inactive Lexapro 20 mg tablet RxNorm: 228448 1 Tablet(s) PO daily 11/05/2013 11/04/2013 Inactive Lexapro 20 mg tablet RxNorm: 068083 1 Tablet(s) PO daily 11/05/2013 10/30/2014 Inactive Lipitor 10 mg tablet RxNorm: 447397 1 Tablet(s) PO QPM TAKE ONE TABLET BY MOUTH EVERY DAY 09/30/2013 10/20/2014 Inactive Lexapro 20 mg tablet RxNorm: 555431 1 Tablet(s) PO daily 09/30/2013 11/04/2013 Inactive Synthroid 125 mcg tablet RxNorm: 707257 1 Tablet(s) PO daily 09/10/2013 12/04/2013 Inactive Synthroid 100 mcg tablet RxNorm: 560746 1 Tablet(s) PO daily TAKE ONE TABLET BY MOUTH EVERY DAY 09/06/2013 09/09/2013 Inactive Lipitor 10 mg tablet RxNorm: 219032 Tablet(s) PO TAKE ONE TABLET BY MOUTH EVERY DAY 08/15/2013 09/29/2013 Inactive Synthroid 100 mcg tablet RxNorm: 445796 1 Tablet(s) PO daily TAKE ONE TABLET BY MOUTH EVERY DAY 04/26/2013 09/05/2013 Inactive Ativan 1 mg tablet RxNorm: 497305 1 Tablet(s) PO Q6 PRN 03/13/2013 No Stop Date Active Synthroid 100 mcg tablet RxNorm: 942145 1 Tablet(s) PO daily TAKE ONE TABLET BY MOUTH EVERY DAY 03/13/2013 04/25/2013 Inactive Lexapro 20 mg tablet RxNorm: 109292 1/2 Tablet(s) PO BID 03/13/2013 09/29/2013 Inactive Synthroid 112 mcg tablet RxNorm: 859289 Tablet(s) PO TAKE ONE TABLET BY MOUTH EVERY DAY 01/08/2013 03/12/2013 Inactive Lexapro 20 mg tablet RxNorm: 163464 Tablet(s) PO TAKE 1/2 TABLET EVERY MORNING AND TAKE ONE TABLET BY MOUTH AT BEDTIME 10/18/2012 03/12/2013 Inactive Lipitor 20 mg tablet RxNorm: 326181 1/2 Tablet(s) PO daily 08/20/2012 02/04/2013 Inactive Lipitor 10 mg tablet RxNorm: 644783 1 Tablet(s) PO daily 05/23/2012 08/19/2012 Inactive Synthroid 112 mcg tablet RxNorm: 254126 1 Tablet(s) PO daily 12/16/2011 01/07/2013 Inactive Synthroid 112 mcg Tab RxNorm: 376470 1 Tablet(s) PO daily 12/16/2011 12/15/2011 Inactive Lipitor 10 mg tablet RxNorm: 472585 1 Tablet(s) PO daily 12/15/2011 05/22/2012 Inactive Synthroid 112 mcg Tab RxNorm: 656285 1 Tablet(s) PO every other day 11/09/2011 12/15/2011 Inactive every other day Synthroid 112 mcg Tab RxNorm: 314520 1 Tablet(s) PO every other day 10/21/2011 11/08/2011 Inactive every other day Synthroid 125 mcg Tab RxNorm: 471679 1 Tablet(s) PO every other day 10/21/2011 12/16/2011 Inactive every other day Lexapro 20 mg tablet RxNorm: 502192 1.5 Tablet(s) PO daily 1/2 pill in AM and 1 pill at bedtime 09/22/2011 04/18/2012 Inactive 1/2 q am 1 q hs diazepam 5 mg Tab RxNorm: 990565 1 Tablet(s) PO daily 1 tab bid prn 09/21/2011 05/17/2012 Inactive Lexapro 20 mg Tab RxNorm: 992911 1.5 Tablet(s) PO daily 1/2 pill in AM and 1 pill at bedtime 08/22/2011 09/21/2011 Inactive diazepam 5 mg Tab RxNorm: 940017 1 Tablet(s) PO daily 1 tab bid prn 06/20/2011 09/20/2011 Inactive diazepam 5 mg Tab RxNorm: 476741 1 Tablet(s) PO daily 1 tab bid prn 06/20/2011 06/19/2011 Inactive diazepam 5 mg Tab RxNorm: 569659 1 Tablet(s) PO daily 1 tab bid prn 06/17/2011 06/19/2011 Inactive Lipitor 10 mg Tab RxNorm: 735509 1 Tablet(s) PO daily 05/31/2011 11/26/2011 Inactive diazepam 5 mg Tab RxNorm: 871396 1 Tablet(s) PO BID 1 tab bid prn 04/21/2011 05/20/2011 Inactive Calcium 600 + D(3) Oral RxNorm: Oral No Start Date Active Menest 0.625 mg Tab RxNorm: 389028 1 Tablet(s) PO daily No Start Date 06/16/2011 Inactive Synthroid 125 mcg tablet RxNorm: 913359 Tablet(s) PO No Start Date 09/09/2013 Inactive Ativan 1 mg tablet RxNorm: 977804 1 Tablet(s) PO Q6 PRN No Start Date 08/21/2011 Inactive aspirin 81 mg Tab, Delayed Release RxNorm: 0763422 1 Tablet(s) PO daily No Start Date 09/29/2013 Inactive Lexapro 10 mg Tab RxNorm: 653637 1 Tablet(s) PO daily No Start Date 08/22/2011 Inactive prednisone 10 mg tablets in a dose pack RxNorm: 196826 1 Tablet(s) PO No Start Date 02/13/2014 Inactive Synthroid 112 mcg Tab RxNorm: 625217 Tablet(s) PO tu/thurs/sat/sun No Start Date 10/20/2011 Inactive lorazepam 1 mg Tab RxNorm: 777985 Tablet(s) PO Q6 PRN No Start Date 11/04/2013 Inactive Lipitor 20 mg tablet RxNorm: 057920 1/2 Tablet(s) PO daily No Start Date 08/20/2012 Inactive Vitamin D2 oral RxNorm: oral No Start Date 09/29/2013 Inactive Synthroid 125 mcg Tab RxNorm: 413932 1 Tablet(s) PO No Start Date 10/20/2011 Inactive synthroid 112 mcg noeed julio vincenzo osorio Medication Administered Medication Codes Instructions Start Date Status Kenalog 40 mg/mL suspension for injection RxNorm: 5482582 1Milliliter 09/05/2016 No longer Active ceftriaxone 500 mg solution for injection RxNorm: 8017001 07/23/2015 No longer Active Kenalog 40 mg/mL suspension for injection RxNorm: 9648055 1Milliliter 02/11/2014 No longer Active Kenalog 40 mg/mL suspension for injection RxNorm: 9956881 Milliliter 01/21/2014 No longer Active Immunizations Vaccine Codes Date Status Influenza CVX: 141 04/24/2018 completed Influenza CVX: 141 06/07/2017 completed Pneumococcal (Adult) CVX: 133 11/13/2015 completed Influenza CVX: 141 04/15/2014 completed Pneumococcal (Adult) CVX: 33 04/15/2014 completed PPD Unknown 10/10/2013 completed Influenza CVX: 141 09/30/2013 completed Assessments Condition Codes Effective Dates Pain in right hand ICD-10: M79.641 ICD-9: [...] Pelvic and perineal pain ICD-10: R10.2 ICD-9: [id number] 02/16/2017 Acute vaginitis ICD-10: N76.0 ICD-9: 623.5 [...] Visit Reason For Visit Effective Dates Notes finger and hand pain 07/12/2018 dysuria 05/07/2018 [...] 59.4 % 11/23/2017 Cbc With Differential Ord2 Lymph% 28.0 % 11/23/2017 Cbc With Differential Ord2 MCV 88.8 fl 11/23/2017 Cbc With Differential Ord2 Clay% 9.0 % 11/23/2017 Cbc With Differential Ord2 MCH 29.7 pg 11/23/2017 Cbc With Differential Ord2 MCHC 33.4 pg 11/23/2017 Cbc With Differential Ord2 Eos% 3.3 % 11/23/2017 Cbc With Differential Ord2 PLT 467 K/ul 11/23/2017 Cbc With Differential Ord2 Baso% 0.3 % 11/23/2017 Cbc With Differential Ord2 Neut ABS# 3.75 K/ul 11/23/2017 Cbc With Differential Ord2 RDW 13.1 % 11/23/2017 Cbc With Differential Ord2 Lymph ABS# 1.77 K/ul 11/23/2017 Cbc With Differential Ord2 Clay ABS# 0.6 K/ul 11/23/2017 Cbc With Differential Ord2 Eos ABS# 0.2 K/ul 11/23/2017 Cbc With Differential Ord2 Baso ABS# 0.0 K/ul 11/23/2017 Tsh Ord6 TSH (3rd IS) 0.17 uIU/mL 11/23/2017 Free T4 Yfy923 FREE T4 1.10 ng/dL 11/23/2017 Comp Metabolic Fbp393 NA 142 mEq/L 11/23/2017 Comp Metabolic Awe452 K 4.4 mEq/L 11/23/2017 Comp Metabolic Xqt718 CL 109 mEq/L 11/23/2017 Comp Metabolic Ccw423 CO2 28.0 mEq/L 11/23/2017 Comp Metabolic Ymk154 ANION GAP 9 11/23/2017 Comp Metabolic Grx342 GLUCOSE 106 mg/dL 11/23/2017 Comp Metabolic Utk151 Creat 0.9 mg/dL 11/23/2017 Comp Metabolic Gfw716 eGFR 68 ml/min/1.73m2 11/23/2017 Comp Metabolic Bsk193 BUN 17 mg/dL 11/23/2017 Comp Metabolic Ein577 B/C Ratio 19.3 Ratio 11/23/2017 Comp Metabolic Jcx012 CALCIUM 9.0 mg/dL 11/23/2017 Comp Metabolic Smg476 ALK PHOS 65 U/L 11/23/2017 Comp Metabolic Ovz780 AST(SGOT) 18 U/L 11/23/2017 Comp Metabolic Pcn927 ALT(SGPT) 16 U/L 11/23/2017 Comp Metabolic Iax997 BILI T 0.5 mg/dL 11/23/2017 Comp Metabolic Ksd835 ALBUMIN 4.2 g/dL 11/23/2017 Comp Metabolic Rhy186 TPRO 6.5 g/dL 11/23/2017 Comp Metabolic Ysh508 GLOB 2.3 g/dL 11/23/2017 Comp Metabolic Hdd902 A/G Ratio 1.8 Ratio 11/23/2017 Comp Metabolic Yob984 Osmo 285 mOsmo 11/23/2017 Lipid Ord30 CHOL [...] hTSH II 4.83 uIU/mL 06/07/2017 Comp Metabolic Vva892 NA 141 mEq/L 06/07/2017 Comp Metabolic Oab337 K 4.3 mEq/L 06/07/2017 Comp Metabolic Afr346 CL 106 mEq/L 06/07/2017 Comp Metabolic Dhj079 CO2 26.0 mEq/L 06/07/2017 Comp Metabolic Pfl739 ANION GAP 13 06/07/2017 Comp Metabolic Qrd319 GLUCOSE 93 mg/dL 06/07/2017 Comp Metabolic Lcc004 Creat 0.9 mg/dL 06/07/2017 Comp Metabolic Mei253 eGFR 65 ml/min/1.73m2 06/07/2017 Comp Metabolic Rmm521 BUN 10 mg/dL 06/07/2017 Comp Metabolic Vxz831 B/C Ratio 11.0 Ratio 06/07/2017 Comp Metabolic Xnc504 CALCIUM 8.9 mg/dL 06/07/2017 Comp Metabolic Jmx222 ALK PHOS 69 U/L 06/07/2017 Comp Metabolic Wva256 AST(SGOT) 18 U/L 06/07/2017 Comp Metabolic Xsp922 ALT(SGPT) 15 U/L 06/07/2017 Comp Metabolic Uxk881 BILI T 0.5 mg/dL 06/07/2017 Comp Metabolic Qzl141 ALBUMIN 4.1 g/dL 06/07/2017 Comp Metabolic Lfi873 TPRO 6.5 g/dL 06/07/2017 Comp Metabolic Dha653 GLOB 2.4 g/dL 06/07/2017 Comp Metabolic Wpr909 A/G Ratio 1.7 Ratio 06/07/2017 Comp Metabolic Hra772 Osmo 280 mOsmo 06/07/2017 Cbc With Differential [...] 30.7 pg 06/07/2017 Cbc With Differential Ord2 Clay% 9.1 % 06/07/2017 Cbc With Differential Ord2 [...] 1.62 K/ul 06/07/2017 Cbc With Differential Ord2 Clay ABS# 0.5 K/ul 06/07/2017 Cbc With Differential Ord2 Eos ABS# 0.2 K/ul 06/07/2017 Cbc With Differential Ord2 Baso ABS# 0.0 K/ul 06/07/2017 Free T4 Kns632 FREE T4 0.92 ng/dL 06/07/2017 Tsh Ord6 hTSH II 1.07 uIU/mL 11/17/2016 Free T4 Rrw305 FREE T4 1.02 ng/dL 11/17/2016 Lipid Ord30 CHOL 195 mg/dL 10/13/2016 Lipid Ord30 HDL 68.0 mg/dl 10/13/2016 Lipid Ord30 TRIG 69 mg/dL 10/13/2016 Lipid Ord30 LDL 113 mg/dL 10/13/2016 Lipid Ord30 C/HDL 2.9 Ratio 10/13/2016 Comp Metabolic Bbj084 NA 138 mEq/L 10/13/2016 Comp Metabolic Aan210 K 4.4 mEq/L 10/13/2016 Comp Metabolic Rjp706 CL 102 mEq/L 10/13/2016 Comp Metabolic Ncc470 CO2 29.0 mEq/L 10/13/2016 Comp Metabolic Omc070 ANION GAP 11 10/13/2016 Comp Metabolic Dlz443 GLUCOSE 85 mg/dL 10/13/2016 Comp Metabolic Cus305 Creat 1.0 mg/dL 10/13/2016 Comp Metabolic Nnm318 eGFR 59 ml/min/1.73m2 10/13/2016 Comp Metabolic Mrn589 BUN 21 mg/dL 10/13/2016 Comp Metabolic Mts804 B/C Ratio 21.2 Ratio 10/13/2016 Comp Metabolic Itl977 CALCIUM 9.7 mg/dL 10/13/2016 Comp Metabolic Tbf163 ALK PHOS 70 U/L 10/13/2016 Comp Metabolic Aqp970 AST(SGOT) 17 U/L 10/13/2016 Comp Metabolic Slz349 ALT(SGPT) 14 U/L 10/13/2016 Comp Metabolic Ipm480 BILI T 0.9 mg/dL 10/13/2016 Comp Metabolic Esz373 ALBUMIN 4.4 g/dL 10/13/2016 Comp Metabolic Gws517 TPRO 7.1 g/dL 10/13/2016 Comp Metabolic Hbq271 GLOB 2.7 g/dL 10/13/2016 Comp Metabolic Qhl180 A/G Ratio 1.6 Ratio 10/13/2016 Comp Metabolic Ylg865 Osmo 278 mOsmo 10/13/2016 Cbc With Differential [...] 29.7 pg 10/13/2016 Cbc With Differential Ord2 Clay% 7.7 % 10/13/2016 Cbc With Differential Ord2 [...] 1.43 K/ul 10/13/2016 Cbc With Differential Ord2 Clay ABS# 0.5 K/ul 10/13/2016 Cbc With Differential Ord2 Eos ABS# 0.1 K/ul 10/13/2016 Cbc With Differential Ord2 Baso ABS# 0.0 K/ul 10/13/2016 Free T4 Yja524 FREE T4 1.31 ng/dL 08/17/2016 Tsh Ord6 hTSH II 0.64 uIU/mL 08/17/2016 Free T4 Hal273 FREE T4 1.49 ng/dL 05/10/2016 Comp Metabolic Tch634 NA 139 mEq/L 05/10/2016 Comp Metabolic Rpw247 K 4.5 mEq/L 05/10/2016 Comp Metabolic Jbl953 CL 104 mEq/L 05/10/2016 Comp Metabolic Sun919 CO2 24.0 mEq/L 05/10/2016 Comp Metabolic Sgw797 ANION GAP 16 05/10/2016 Comp Metabolic Zxy454 GLUCOSE 87 mg/dL 05/10/2016 Comp Metabolic Haz352 Creat 0.9 mg/dL 05/10/2016 Comp Metabolic Kym991 eGFR 71 ml/min/1.73m2 05/10/2016 Comp Metabolic Ftn177 BUN 12 mg/dL 05/10/2016 Comp Metabolic Qky367 B/C Ratio 14.1 Ratio 05/10/2016 Comp Metabolic Ifh423 CALCIUM 9.6 mg/dL 05/10/2016 Comp Metabolic Jvp830 ALK PHOS 89 U/L 05/10/2016 Comp Metabolic Bgn084 AST(SGOT) 17 U/L 05/10/2016 Comp Metabolic Exj448 ALT(SGPT) 17 U/L 05/10/2016 Comp Metabolic Ihm102 BILI T 0.9 mg/dL 05/10/2016 Comp Metabolic Amj462 ALBUMIN 4.2 g/dL 05/10/2016 Comp Metabolic Ams018 TPRO 6.7 g/dL 05/10/2016 Comp Metabolic Ilp061 GLOB 2.5 g/dL 05/10/2016 Comp Metabolic Tci205 A/G Ratio 1.7 Ratio 05/10/2016 Comp Metabolic Vhn942 Osmo 277 mOsmo 05/10/2016 Cbc With Differential [...] 85.5 fl 05/10/2016 Cbc With Differential Ord2 Clay% 8.3 % 05/10/2016 Cbc With Differential Ord2 [...] 1.57 K/ul 05/10/2016 Cbc With Differential Ord2 Clay ABS# 0.6 K/ul 05/10/2016 Cbc With Differential Ord2 Eos ABS# 0.2 K/ul 05/10/2016 Cbc With Differential Ord2 Baso ABS# 0.0 K/ul 05/10/2016 Tsh Ord6 hTSH II 0.03 uIU/mL 05/10/2016 Free T4 Xtt664 FREE T4 1.67 ng/dL 02/18/2016 Tsh Ord6 hTSH II 0.06 uIU/mL 02/18/2016 Comp Metabolic Jis620 NA 138 mEq/L 02/18/2016 Comp Metabolic Uoa211 K 4.5 mEq/L 02/18/2016 Comp Metabolic Vpk587 CL 104 mEq/L 02/18/2016 Comp Metabolic Fnd924 CO2 26.0 mEq/L 02/18/2016 Comp Metabolic Dlf610 ANION GAP 13 02/18/2016 Comp Metabolic Cti143 GLUCOSE 88 mg/dL 02/18/2016 Comp Metabolic Ace410 Creat 0.9 mg/dL 02/18/2016 Comp Metabolic Orh941 eGFR 69 ml/min/1.73m2 02/18/2016 Comp Metabolic Ylc654 BUN 14 mg/dL 02/18/2016 Comp Metabolic Tdi660 B/C Ratio 16.1 Ratio 02/18/2016 Comp Metabolic Esd555 CALCIUM 9.4 mg/dL 02/18/2016 Comp Metabolic Vyh814 ALK PHOS 95 U/L 02/18/2016 Comp Metabolic Kkd435 AST(SGOT) 19 U/L 02/18/2016 Comp Metabolic Jsw923 ALT(SGPT) 18 U/L 02/18/2016 Comp Metabolic Acd997 BILI T 0.7 mg/dL 02/18/2016 Comp Metabolic Qkq799 ALBUMIN 4.4 g/dL 02/18/2016 Comp Metabolic Npm112 TPRO 6.9 g/dL 02/18/2016 Comp Metabolic Owz697 GLOB 2.5 g/dL 02/18/2016 Comp Metabolic Hyi947 A/G Ratio 1.7 Ratio 02/18/2016 Comp Metabolic Yha947 Osmo 276 mOsmo 02/18/2016 Cbc With Differential Ord2 WBC 5.74 [...] 28.9 pg 02/18/2016 Cbc With Differential Ord2 Clay% 10.5 % 02/18/2016 Cbc With Differential Ord2 [...] 1.08 K/ul 02/18/2016 Cbc With Differential Ord2 Clay ABS# 0.6 K/ul 02/18/2016 Cbc With Differential Ord2 Eos ABS# 0.0 K/ul 02/18/2016 Cbc With Differential Ord2 Baso ABS# 0.0 K/ul 02/18/2016 Lipid Ord30 CHOL 163 mg/dL 02/18/2016 Lipid Ord30 HDL 43.0 mg/dl 02/18/2016 Lipid Ord30 TRIG 90 mg/dL 02/18/2016 Lipid Ord30 LDL 102 mg/dL 02/18/2016 Lipid Ord30 C/HDL 3.8 Ratio 02/18/2016 Comp Metabolic Zxp723 NA 136 mEq/L 06/08/2015 Comp Metabolic Dai854 K 3.9 mEq/L 06/08/2015 Comp Metabolic Xul944 CL 103 mEq/L 06/08/2015 Comp Metabolic Bdb295 CO2 25.0 mEq/L 06/08/2015 Comp Metabolic Dru490 ANION GAP 12 06/08/2015 Comp Metabolic Dvg992 GLUCOSE 91 mg/dL 06/08/2015 Comp Metabolic Clm483 Creat 0.9 mg/dL 06/08/2015 Comp Metabolic Ave273 eGFR 68 ml/min/1.73m2 06/08/2015 Comp Metabolic Big714 BUN 10 mg/dL 06/08/2015 Comp Metabolic Uvt188 B/C Ratio 11.4 Ratio 06/08/2015 Comp Metabolic Zqm115 CALCIUM 9.4 mg/dL 06/08/2015 Comp Metabolic Bdg553 ALK PHOS 88 U/L 06/08/2015 Comp Metabolic Gme335 AST(SGOT) 20 U/L 06/08/2015 Comp Metabolic Ird068 ALT(SGPT) 18 U/L 06/08/2015 Comp Metabolic Fev794 BILI T 0.8 mg/dL 06/08/2015 Comp Metabolic Zef189 ALBUMIN 4.4 g/dL 06/08/2015 Comp Metabolic Arw133 TPRO 7.0 g/dL 06/08/2015 Comp Metabolic Tec116 GLOB 2.6 g/dL 06/08/2015 Comp Metabolic Zel119 A/G Ratio 1.7 Ratio 06/08/2015 Comp Metabolic Pmy881 Osmo 271 mOsmo 06/08/2015 Tsh Ord6 hTSH [...] Ord2 RDW 14.4 % 06/08/2015 LYME EIA [id number] LYME EIA 0.24 04/25/2014 TULAREM AB [id number] TULAREM AB <1:20 04/24/2014 RMSF IFA [id number] IGG RMSF <1:16 04/24/2014 RMSF IFA [id number] IGM RMSF <1:10 04/24/2014 E CHAFF AB [id number] IGG E CHFF <1:16 04/24/2014 E CHAFF AB [id number] IGM E CHFF <1:10 04/24/2014 ICT OCCULT [id number] ICT OCCULT NEG 10/11/2013 Review of Systems System Result Effective Dates Constitutional No recent illness 07/12/2018 Constitutional No [...] Result Effective Dates Notes Full Exam - Orthopedics Constitutional general appearance [...] age 0310/15/2013 None Full Exam - General 1995 Constitutional general appearance Development: well developed 10/15/2013 [...] time 09/30/2013 None Full Exam - General 1995 [...] clubbing 10/04/2012 None Full Exam - General 1995 Abdomen abdominal exam Overall: no tenderness 10/04/2012 [...] accomodation 06/17/2011 None Procedures Procedure Codes Date URINALYSIS NONAUTO W/O SCOPE CPT-4: 99371 05/07/2018 ADMIN INFLUENZA VIRUS VAC CPT-4: G0008 04/24/2018 FLU VACC PRSV FREE INC ANTIG CPT-4: 38953 04/24/2018 PPPS, SUBSEQ VISIT CPT- 4: G0439 11/28/2017 ADMIN INFLUENZA VIRUS VAC CPT-4: G0008 06/07/2017 FLU VACC PRSV FREE INC ANTIG CPT-4: 67503 06/07/2017 PPPS, SUBSEQ VISIT CPT- 4: G0439 11/17/2016 TRIAMCINOLONE ACET INJ NOS CPT-4: J3301 09/05/2016 PPPS, SUBSEQ VISIT CPT- 4: G0439 11/13/2015 PNEUMOCOCCAL VACC 13 STEPHANIE IM Formatting Model/CDA Sections, Assigned to/Lila Colon SNOMED CT: 87225392 CPT-4: 16842Ccbzfvg 11/13/2015 ADMIN PNEUMOCOCCAL VACCINE SNOMED CT: 35553386 CPT-4: G0009 11/13/2015 ROCEPHIN, PER 250 MG CPT- 4: J0696 07/23/2015 URINALYSIS NONAUTO W/O SCOPE CPT-4: 24628 10/10/2014 ROUTINE VENIPUNCTURE CPT- 4: 55256 04/23/2014 Pneumococcal Polysaccharide Vaccine, 23-Valent, Ad CPT-4: 09261 04/15/2014 ADMIN INFLUENZA VIRUS VAC CPT-4: G0008 04/15/2014 FLU VAC NO PRSV 4 STEPHANIE 3 YRS+ CPT-4: 31793 04/15/2014 ADMIN PNEUMOCOCCAL VACCINE SNOMED CT: 18636606 CPT-4: G0009 04/15/2014 THER/PROPH/DIAG INJ SC/IM CPT-4: 05335 02/11/2014 TRIAMCINOLONE ACET INJ NOS CPT-4: J3301 02/11/2014 TRIAMCINOLONE ACET INJ NOS CPT-4: J3301 01/21/2014 INITIAL PREVENTIVE EXAM CPT-4: G0402 09/30/2013 PRESCRIP TRANSMIT VIA ERX SY CPT-4: G8553 03/13/2013 Vital Signs Date Vital 07/12/2018 Blood Pressure 1: 126/76 Code: 8480-6 BMI: 29.3 Code: 07883-0 Heart Rate 1: 70 bpm Height: 5'5" SpO2: 96% Weight: 176 lbs 05/07/2018 Blood Pressure 1: 118/72 Code: 8480-6 BMI: 29.5 Code: 22734-3 Heart Rate 1: 71 bpm Height: 5'5" SpO2: 98% Weight: 177 lbs 02/21/2018 Blood Pressure 1: 120/78 Code: 8480-6 BMI: 29.0 Code: 15363-8 Heart Rate 1: 68 bpm Height: 5'5" SpO2: 96% Weight: 174 lbs 11/28/2017 Blood Pressure 1: 122/98 Code: 8480-6 BMI: 31.0 Code: 29375-7 Heart Rate 1: 89 bpm Height: 5'5" SpO2: 98% Waist Measure (cm): 91 cm Weight: 186 lbs 08/29/2017 Blood Pressure 1: 146/80 Code: 8480-6 BMI: 29.5 Code: 77904-8 Heart Rate 1: 68 bpm Height: 5'5" SpO2: 98% Temperature: 36.6 (C) / 97.8 (F) Weight: 177 lbs 06/13/2017 Blood Pressure 1: 138/76 Code: 8480-6 BMI: 29.6 Code: 17088-0 Heart Rate 1: 63 bpm Height: 5'5" SpO2: 95% Weight: 178 lbs 02/16/2017 Blood Pressure 1: 128/80 Code: 8480-6 BMI: 29.9 Code: 96886-2 Heart Rate 1: 77 bpm Height: 5'5" SpO2: 96% Weight: 179 lbs 8 oz 02/06/2017 Blood Pressure 1: 140/80 Code: 8480-6 BMI: 29.8 Code: 94623-9 Heart Rate 1: 72 bpm Height: 5'5" SpO2: 97% Weight: 179 lbs 11/17/2016 Blood Pressure 1: 130/72 Code: 8480-6 BMI: 29.6 Code: 17123-1 Heart Rate 1: 62 bpm Height: 5'5" SpO2: 98% Waist Measure (cm): 91 cm Weight: 178 lbs 10/12/2016 Blood Pressure 1: 128/78 Code: 8480-6 BMI: 28.5 Code: 83070-7 Heart Rate 1: 62 bpm Height: 5'5" SpO2: 97% Weight: 171 lbs 09/05/2016 Blood Pressure 1: 122/70 Code: 8480-6 BMI: 28.0 Code: 92746-1 Heart Rate 1: 65 bpm Height: 5'5" SpO2: 94% Weight: 168 lbs 06/21/2016 Blood Pressure 1: 120/82 Code: 8480-6 BMI: 28.3 Code: 54776-5 Heart Rate 1: 65 bpm Height: 5'5" SpO2: 97% Weight: 170 lbs 05/24/2016 Blood Pressure 1: 136/80 Code: 8480-6 BMI: 28.1 Code: 01918-0 Heart Rate 1: 71 bpm Height: 5'5" SpO2: 96% Weight: 169 lbs 05/10/2016 Blood Pressure 1: 120/82 Code: 8480-6 BMI: 27.6 Code: 98188-7 Heart Rate 1: 86 bpm Height: 5'5" SpO2: 95% Weight: 166 lbs 05/03/2016 Blood Pressure 1: 124/78 Code: 8480-6 BMI: 28.1 Code: 57004-3 Heart Rate 1: 88 bpm Height: 5'5" SpO2: 97% Weight: 169 lbs 11/13/2015 Blood Pressure 1: 130/60 Code: 8480-6 BMI: 30.0 Code: 69836-2 Heart Rate 1: 7 bpm Height: 5'5" Waist Measure (cm): 97 cm Weight: 180 lbs 07/23/2015 Blood Pressure 1: 124/70 Code: 8480-6 BMI: 29.6 Code: 85284-6 Heart Rate 1: 74 bpm Height: 5'5" SpO2: 96% Temperature: 36.7 (C) / 98.1 (F) Weight: 178 lbs 07/06/2015 Blood Pressure 1: 138/78 Code: 8480-6 BMI: 29.6 Code: 87797-6 Heart Rate 1: 84 bpm Height: 5'5" SpO2: 96% Weight: 178 lbs 05/26/2015 Blood Pressure 1: 122/80 Code: 8480-6 BMI: 29.6 Code: 03300-6 Heart Rate 1: 84 bpm Height: 5'5" Weight: 178 lbs 02/16/2015 Blood Pressure 1: 124/82 Code: 8480-6 BMI: 29.0 Code: 29771-4 Heart Rate 1: 68 bpm Height: 5'5" Weight: 174 lbs 12/10/2014 Blood Pressure 1: 112/64 Code: 8480-6 BMI: 28.6 Code: 43308-7 Heart Rate 1: 80 bpm Height: 5'5" Weight: 172 lbs 10/16/2014 Blood Pressure 1: 128/84 Code: 8480-6 Heart Rate 1: 64 bpm Weight: 172 lbs 10/09/2014 Blood Pressure 1: 136/90 Code: 8480-6 BMI: 28.6 Code: 22187-2 Heart Rate 1: 76 bpm Height: 5'5" Weight: 172 lbs 08/26/2014 Blood Pressure 1: 118/72 Code: 8480-6 BMI: 29.0 Code: 43034-8 Heart Rate 1: 76 bpm Height: 5'5" Weight: 174 lbs 05/16/2014 Blood Pressure 1: 110/72 Code: 8480-6 BMI: 29.0 Code: 65814-7 Height: 5'5" Weight: 174 lbs 04/23/2014 Blood Pressure 1: 124/70 Code: 8480-6 BMI: 29.0 Code: 89156-9 Heart Rate 1: 72 bpm Height: 5'5" Weight: 174 lbs 04/15/2014 Temperature: 36.5 (C) / 97.7 (F) 01/21/2014 Blood Pressure 1: 98/62 Code: 8480-6 BMI: 29.0 Code: 49051- 5 Heart Rate 1: 84 bpm Height: 5'5" Temperature: 37.1 (C) / 98.7 (F) Weight: 174 lbs 12/05/2013 Blood Pressure 1: 138/88 Code: 8480-6 BMI: 29.0 Code: 96324-1 Heart Rate 1: 60 bpm Height: 5'5" Weight: 174 lbs 11/05/2013 Blood Pressure 1: 118/80 Code: 8480-6 BMI: 28.8 Code: 14747-6 Heart Rate 1: 76 bpm Height: 5'5" Weight: 173 lbs 10/15/2013 Blood Pressure 1: 120/78 Code: 8480-6 BMI: 29.1 Code: 26574-9 Heart Rate 1: 88 bpm Height: 5'5" Weight: 175 lbs 09/30/2013 Blood Pressure 1: 112/84 Code: 8480-6 BMI: 29.1 Code: 36923-7 Heart Rate 1: 68 bpm Height: 5'5" Weight: 175 lbs 03/13/2013 Blood Pressure 1: 112/84 Code: 8480-6 BMI: 28.6 Code: 82475-9 Heart Rate 1: 64 bpm Height: 5'5" Weight: 173 lbs 10/04/2012 Blood Pressure 1: 120/72 Code: 8480-6 BMI: 28.0 Code: 05078-0 Heart Rate 1: 64 bpm Height: 5'5" Weight: 169 lbs 08/22/2011 Blood Pressure 1: 134/84 Code: 8480-6 BMI: 27.5 Code: 25570-1 Heart Rate 1: 68 bpm Height: 5'5" Respiratory Rate: 16 bpm Weight: 166 lbs 8 oz 06/17/2011 Blood Pressure 1: 120/76 Code: 8480-6 BMI: 27.0 Code: 97799-5 Heart Rate 1: 58 bpm Height: 5'5" Respiratory Rate: 16 bpm Weight: 163 lbs Functional Status No Functional Status data History of Present Illness Symptom Name Status Result Effective Date Notes Location around the right index fingernail 07/12/2018 [...] Performer Location Codes Date EST. PATIENT, LEVEL III Diagnosis: Pain in right hand[ICD10: M79.641] [facility] CPT-4: 02771 07/12/2018 ([id number]) 88739 EST. PATIENT, LEVEL II Diagnosis: Dysuria[ICD10: R30.0] [facility] CPT-4: 24401 05/07/2018 07977 EST. PATIENT, LEVEL IV Diagnosis: Tinnitus, bilateral[ICD10: H93.13] Diagnosis: Other allergic rhinitis[ICD10: J30.89] Gina Alvarado MD, [facility] CPT- 4: 87091 02/21/2018 11140 EST. PATIENT, LEVEL III Diagnosis: Acute laryngopharyngitis[ICD10: J06.0] Diagnosis: Other allergic rhinitis[ICD10: J30.89] Gina Alvarado MD, [facility] CPT- 4: 79526 08/29/2017 ([id number]) 74040 EST. PATIENT, LEVEL IV Diagnosis: Postprocedural hypothyroidism[ICD10: E89.0] Diagnosis: Major depressive disorder, recurrent, moderate[ICD10: F33.1] Diagnosis: Generalized anxiety disorder[ICD10: F41.1] Elina Alvarado MD, [facility] CPT-4: 00754 06/13/2017 ([id number]) 11011 EST. PATIENT, LEVEL IV Diagnosis: Pelvic and perineal pain[ICD10: R10.2] Diagnosis: Acute vaginitis[ICD10: N76.0] Suma Alvarado MD, [facility] CPT-4: 85798 02/16/2017 ([id number]) 90578 EST. PATIENT, LEVEL III Diagnosis: Postprocedural hypothyroidism[ICD10: E89.0] Diagnosis: Major depressive disorder, recurrent, moderate[ICD10: F33.1] Elina Alvarado MD, [facility] CPT-4: 85345 02/06/2017 ([id number]) 95435 EST. PATIENT, LEVEL III Diagnosis: Generalized anxiety disorder[ICD10: F41.1] Elina Alvarado MD, [facility] CPT-4: 64982 10/12/2016 ([id number]) 14070 EST. PATIENT, LEVEL III Diagnosis: Cough[ICD10: R05] Diagnosis: Acute upper respiratory infection, unspecified[ICD10: J06.9] Suma Alvarado MD, [facility] CPT-4: 99480 09/05/2016 ([id number]) 95214 EST. PATIENT, LEVEL III Diagnosis: Generalized anxiety disorder[ICD10: F41.1] Diagnosis: Major depressive disorder, recurrent, moderate[ICD10: F33.1] Diagnosis: Postprocedural hypothyroidism[ICD10: E89.0] Elina Alvarado MD, [facility] CPT-4: 99578 06/21/2016 ([id number]) 22865 EST. PATIENT, LEVEL III Diagnosis: Major depressive disorder, recurrent, moderate[ICD10: F33.1] Elina Alvarado MD [facility] CPT-4: 80755 05/24/2016 ([id number]) 20682 EST. PATIENT, LEVEL III Diagnosis: Major depressive disorder, recurrent, moderate[ICD10: F33.1] Elina Alvarado MD, [facility] CPT-4: 69434 05/10/2016 ([id number]) 17718 EST. PATIENT, LEVEL III Diagnosis: Generalized anxiety disorder[ICD10: F41.1] Diagnosis: Major depressive disorder, recurrent, moderate[ICD10: F33.1] Suma Alvarado MD, [facility] CPT-4: 62004 05/03/2016 ([id number]) 97467 EST. PATIENT, LEVEL III Diagnosis: Cough[ICD10: R05] Diagnosis: Acute upper respiratory infection, unspecified[ICD10: J06.9] Suma Alvarado MD, [facility] CPT-4: 17415 07/23/2015 ([id number]) 47275 EST. PATIENT, LEVEL III Diagnosis: Hypothyroidism, unspecified[ICD10: E03.9] Diagnosis: Generalized anxiety disorder[ICD10: F41.1] Diagnosis: Other depressive episodes[ICD10: F32.8] Elina Alvarado MD, [facility] CPT-4: 14827 07/06/2015 [id number]) 34716 EST. PATIENT, LEVEL IV Diagnosis: Generalized anxiety disorder[ICD10: F41.1] Diagnosis: Major depressive disorder, recurrent, unspecified[ICD10: F33.9] Elina Alvarado MD, [facility] CPT-4: 88538 05/26/2015 [id number]) 46488 EST. PATIENT, LEVEL II Diagnosis: 2Nd degree burn of multiple fingers of right hand not including thumb[ICD9: 944.23] Suma Alvarado MD, [facility] CPT-4: 29287 02/16/2015 47731 92984 EST. PATIENT, LEVEL IV Diagnosis: Hammertoe[ICD9: 735.4] Diagnosis: Foot pain[ICD9: 729.5] Diagnosis: HYPOTHYROIDISM[ICD9: 244.9] Elina Alvarado MD [facility] CPT-4: 60700 12/10/2014 ([id number]) 96377 EST. PATIENT, LEVEL III Diagnosis: Urinary incontinence[ICD9: 788.30] Diagnosis: Pelvic pain in female[ICD9: 625.9] Elina Alvarado MD [facility] CPT- 4: 59411 10/16/2014 ([id number]) 21919 EST. PATIENT, LEVEL III Diagnosis: Urinary incontinence[ICD9: 788.30] Diagnosis: Pelvic pain in female[ICD9: 625.9] Suma Alvarado MD [facility] CPT- 4: 54227 10/09/2014 ([id number]) 37217 EST. PATIENT, LEVEL III Diagnosis: HYPOTHYROIDISM[ICD9: 244.9] Elina Alvarado MD [facility] CPT-4: 53827 08/26/2014 ([id number]) 01023 EST. PATIENT, LEVEL III Diagnosis: Neck pain[ICD9: 723.1] Diagnosis: Muscle tension headache[ICD9: 307.81] Suma Alvarado MD [facility] CPT-4: 29962 05/16/2014 ([id number]) 37979 EST. PATIENT, LEVEL IV Diagnosis: Arthropod bite[ICD9: 919.4] Diagnosis: Poison gilmer dermatitis[ICD9: 692.6] Diagnosis: Arthralgia[ICD9: 719.40] Diagnosis: Myalgia[ICD9: 729.1] Elina Alvarado MD, [facility] CPT-4: 59709 04/23/2014 ([id number]) 09625 EST. PATIENT, LEVEL III Diagnosis: ACUTE URI[ICD9: 465.9] Diagnosis: COUGH[ICD9: 786.2] Suma Alvarado MD [facility] CPT-4: 02899 01/21/2014 ([id number]) 23329 EST. PATIENT, LEVEL III Diagnosis: HYPOTHYROIDISM[ICD9: 244.9] Diagnosis: GENERALIZED ANXIETY DISEASE[ICD9: 300.02] Elina Alvarado MD [facility] CPT-4: 79385 12/05/2013 ([id number]) 41608 EST. PATIENT, LEVEL III Diagnosis: GENERALIZED ANXIETY DISEASE[ICD9: 300.02] Diagnosis: DEPRESSIVE DISORDER NEC[ICD9: 311] RUBIA Alex MD CPT- 4: 08041 11/05/2013 ([id number]) 53537 EST. PATIENT, LEVEL III Diagnosis: HYPOTHYROIDISM[ICD9: 244.9] RUBIA Alex MD CPT-4: 42871 10/15/2013 ([id number]) Miscellaneous no charge Diagnosis: Colon cancer screening[ICD9: V76.51] RUBIA Alex MD CPT- 4: 02243 10/10/2013 ([id number]) 12755 EST. PATIENT, LEVEL IV Diagnosis: HYPOTHYROIDISM[ICD9: 244.9] Diagnosis: DEPRESSIVE DISORDER NEC[ICD9: 311] Diagnosis: GENERALIZED ANXIETY DISEASE[ICD9: 300.02] Diagnosis: HYPERLIPIDEMIA[ICD9: 272.4] RUBIA Alex MD CPT-4: 08748 03/13/2013 ([id number]) 89190 EST. PATIENT, LEVEL IV Diagnosis: HYPERLIPIDEMIA[ICD9: 272.4] Diagnosis: HYPOTHYROIDISM[ICD9: 244.9] Diagnosis: GENERALIZED ANXIETY DISEASE[ICD9: 300.02] Diagnosis: DEPRESSIVE DISORDER NEC[ICD9: 311] Elina Alvarado MD [facility] CPT- 4: 09513 10/04/2012 ([id number]) 33057 EST. PATIENT, LEVEL III Diagnosis: VICTOR HUGO (generalized anxiety disorder)[ICD9: 300.02] Diagnosis: Chronic depression[ICD9: 311] Elina Alvarado MD, [facility] CPT-4: 85347 08/22/2011 25222 EST. PATIENT, LEVEL IV Diagnosis: CHEST PAIN NEC[ICD9: 786.59] Diagnosis: HYPERLIPIDEMIA[ICD9: 272.4] Diagnosis: POSTSURGICAL HYPOTHYROIDISM[ICD9: 244.0] Elina Alvarado MD, [facility] CPT-4: 08900 06/17/2011 Plan of Care Planned Activity Notes Codes Status Date Visit Plan: Right hand pain - ongoing - will send for x-ray - The pt is to use prn antiinflammatories to manage acute pain. The patient is to call the office if the pain is worsening or does not improve. 07/12/2018 Appointment: Gian Kern WPtel: [address] [place], [place] [phone] (15 min) Moderate 07/12/2018 Patient Education: Patient Medication Summary Completed 07/12/2018 Care Plan: X-RAY EXAM OF HAND LOINC : 67818-8 Pending 07/12/2018 Visit Plan: Dysuria- UA negative -symptoms resolved -instructed patient to continue with adequate fluid intake and call if symptoms return. Patient verbalized understanding of plan. 05/07/2018 Appointment: Suma Choi WPtel: [phone] (15 min) Moderate 05/07/2018 Patient Education: Patient Medication Summary Completed 05/07/2018 Appointment: Injection 04/24/2018 Patient Education: Patient Medication Summary Completed 04/24/2018 Referral: Peter Rubio [address] Referral Completed 03/22/2018 Visit Plan: Allergies [...] hearing testing 02/21/2018 Appointment: Gina Kern WPtel: [address] [place], [place] [phone] (15 min) Moderate 02/21/2018 Patient Education: Patient Medication Summary Completed 02/21/2018 Care Plan: Referral Order SNOMED-CT : [id number] Pending 02/21/2018 Appointment: Elina Alvarado WPtel: [address] [place], [place] [phone] (15 min) Moderate 12/14/2017 Visit Plan: Medicare [...] Summary Completed 11/28/2017 [facility]ment: [phone] [facility] - Annual Wellness Visit 11/21/2017 Visit Plan: [...] allergy spray. 08/29/2017 Appointment: [phone] (15 min) Moderate 08/29/2017 Patient Education: [...] counseling. 06/13/2017 Appointment: Elina Alvarado WPtel: [phone] [facility] (15 min) Moderate 06/13/2017 Patient Education: Patient Medication Summary Completed 06/13/2017 Appointment: Injection 06/07/2017 Patient Education: Patient Medication Summary Completed 06/07/2017 Visit Plan: Pelvic pain-UA negative-pap done today in the office- will start patient on flagyl for bacterial vaginosis-instructed patient to call if symptoms do not resolve or if any worse. Patient verbalized understanding of plan. 02/16/2017 Appointment: Suma Choi WPtel: [phone] [phone] [place] (30 min) Complex 02/16/2017 Patient Education: [...] current medications. 02/06/2017 Appointment: Elina Alvarado WPtel: [address] [facility] [place] (15 min) Moderate 02/06/2017 Patient Education: [...] care surrogate. 11/17/2016 Appointment: Gina Kern WPtel: [facility] [facility] - Annual Wellness Visit 11/17/2016 Patient Education: [...] current medications. 10/12/2016 Appointment: Elina Alvarado WPtel: [facility] (15 min) Moderate 10/12/2016 Patient Education: Patient [...] J06.9 09/05/2016 Appointment: Suma Choi WPtel: [phone] [phone] (10 min) Simple 09/05/2016 Patient Education: Patient [...] with lexapro 06/21/2016 Appointment: Elina Alvarado WPtel: [phone] [facility] (15 min) Moderate 06/21/2016 Patient Education: Patient Medication Summary Completed 06/21/2016 Visit Plan: Depression - improved with lexapro - continue with current treatment and counseling. 05/24/2016 Appointment: Elina Alvarado WPtel: [facility] [place] (15 min) Moderate 05/24/2016 Patient Education: Patient Medication Summary Completed 05/24/2016 Visit Plan: Depression - improved on the Lexapro - stop ativan - start on xanax 05/10/2016 Appointment: Elina Alvarado WPtel: [facility] [place] (15 min) Moderate 05/10/2016 Patient Education: [...] Summary Completed 05/03/2016 Appointment: Suma Choi WPtel: [phone] [place] (15 min) Moderate 02/26/2016 Visit Plan: [...] and to maintain independece in the home. Gqznfeecru-syfqvtfbxetw-tepege to wellbutrin Pneumonia 13 administered today in [...] and to maintain independece in the home. Mmabewfuwf-ulrkhmpziusu-ihlhvr to wellbutrin Pneumonia 13 administered today in the office 11/13/2015 Appointment: [facility] - Annual Wellness Visit 11/13/2015 Patient Education: Patient Medication Summary Completed 11/13/2015 Patient Education: Obesity Completed 11/13/2015 Care Plan: SCREENINGMAMMOGRAPHYDIGITAL LOINC : 84402-0 Ordered 11/13/2015 Appointment: Lab Draw 08/10/2015 Visit [...] current medications. 07/06/2015 Appointment: Elina Alvarado WPtel: [address] [place], [place] [address] (30 min) [facility] 07/06/2015 Patient Education: Patient Medication Summary Completed [...] upon discharge. 12/10/2014 Appointment: Elina Alvarado WPtel: [address] [place], [place] [phone] [place] [facility] 12/10/2014 Patient Education: Patient Medication Summary Completed 12/10/2014 Visit Plan: Urinary incontinence and Pelvic discomfort - recommended pt to have evaluation by Dr. Brandt - pt agreeable to referral. Pt is to call if abdominal pain does not improve. 10/16/2014 Appointment: Elina Alvarado WPtel: [address] [place] [address] Follow up 10/16/2014 Patient Education: Patient Medication Summary Completed 10/16/2014 Care Plan: Referral Order SNOMED-CT : [id number] Ordered 10/16/2014 Patient Education: Patient Medication Summary Completed 10/10/2014 Visit Plan: Pelvic pain-history of mesh implant-recommend CT abd/pelvis to evaluate for any abnormality-refer to Dr Woods if pain does not improve Urinary incontinence-check UA with C&S if indicated 10/09/2014 Patient Education: Patient Medication Summary Completed 10/09/2014 Care Plan: CT ABD & PELV 1/> REGNS LOINC : 51560-0 Ordered 10/09/2014 Visit Plan: Hypothyroidism - pt [...] Elina Alvarado WPtel: [facility] Follow up 08/26/2014 Patient Education: Patient Medication [...] with screening. 04/23/2014 Appointment: Elina Alvarado WPtel: [address] [place], [place] [phone] Sick 04/23/2014 Patient Education: Patient Medication Summary Completed 04/23/2014 Care Plan: Referral Order SNOMED-CT : [id number] Ordered 04/23/2014 Appointment: Nurse Visit 04/15/2014 Patient Education: Patient Medication Summary Completed 04/15/2014 Appointment: Elina Alvarado WPtel: [facility] [place] Injection 02/11/2014 Patient Education: Patient Medication [...] treatment. 12/05/2013 Appointment: Elina Alvarado WPtel: [phone] [place] [phone] Follow up 12/05/2013 Patient Education: Patient Medication [...] above medications. 11/05/2013 Appointment: Elina Alvarado WPtel: [facility] Follow up 11/05/2013 Patient Education: Patient Medication [...] control. 10/15/2013 Appointment: Elina Alvarado WPtel: [phone] [facility] [facility] 10/15/2013 Patient Education: Patient Medication [...] care surrogate. 09/30/2013 Appointment: Elina Alvarado WPtel: [phone] [facility] [facility] - Initial Preventive Physical Exam 09/30/2013 Patient Education: Patient Medication Summary Completed 09/30/2013 Appointment: Elina Alvarado WPtel: [phone] [facility] [facility] - Initial Preventive Physical Exam 09/11/2013 Visit [...] prn use. 03/13/2013 Appointment: Elina Alvarado WPtel: [address] [facility] Follow up 03/13/2013 Patient Education: Patient Medication [...] medications. 10/04/2012 Appointment: Elina Alvarado WPtel: [phone] [facility] Follow up 10/04/2012 Patient Education: Patient Medication [...] anxiety attacks. 08/22/2011 Appointment: [facility]ado [facility]Ptel[phone] Other 08/22/2011 Patient Education: Patient Medication [...] ULTRASOUND 06/17/2011 Appointment: Elina Alvarado WPtel: [phone] [facility] 06/17/2011 Patient Education: Patient Medication Summary Completed 06/17/2011 Referral: Raimundo Brandt WPtel: Referral Appointment [facility] Referral Initiated Referral: Dr. Phelps WPtel: Referral Initiated Instructions Comment . Depression - improved with lexapro - [...] - no change in current treatment. . Anxiety - the patient has uncontrolled [...] is worsening or does not improve. . Depression - improved on the Lexapro [...] and to maintain independece in the home. Kiaafjpfmp-eqsltajwmiji-dzoelq to wellbutrin Pneumonia 13 administered today in [...] and to maintain independece in the home. Sbmpuoeqap-jsxivnbsyxqw-zvlwzw to wellbutrin Pneumonia 13 administered today in [...] benefits of treament with the above medications. increase synthroid to 112 mcg daily. . [...] Kenalog injection today in the office. . Pelvic pain-history of mesh implant-recommend CT abd/pelvis to evaluate for any abnormality-refer to Dr Woods if pain does not improve Urinary incontinence-check UA with C&S if indicated . 2nd degree burn of right 2nd and 3rd fingers-dressing change today in the office-continue with current treatment as discussed-instructed patient to call for any signs/symptoms of infection or other concerns. Patient verbalized understanding of plan. . Dysuria- UA negative -symptoms resolved -instructed patient to continue with adequate fluid intake and call if symptoms return. Patient verbalized understanding of plan. . Neck pain-muscle tightness-recommend anti inflammatories as [...]
--- OUTSIDE RECORDS SUMMARY | 2018-12-27 09:59 | XMS REPORT | CCD ---
Author Author [facility] Organization [facility] Address [address] [place] [address] Phone Care Team Providers Care Food Quality Technician Name Role Phone PP Unavailable CCM Unavailable Summary Purpose Interface Exchange Insurance Providers Payer name Policy type / Coverage type Covered green party ID Effective Begin Date Effective End Date WPS Medicare Part B [id number] 2018 Unknown [facility] [id number] 2018 Unknown Family history Sister Diagnosis Age [...] Description Effective Dates Tobacco history SNOMED CT: 5786794 Former smoker quit 2 years ago, social smoker, 1 pack per month 200709/30/2013 Employment Unknown 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 Marital status Unknown 06/17/[address]: 218961 Currently drinks alcohol 2 beers/week 06/17/2011 Has [...] 02/16/2017 Unknown Pelvic and perineal pain ICD-9: [id number] ICD-10: R10.2 Active 02/16/2017 Unknown Hypothyroidism, unspecified [...] 02/16/2017 Active Pelvic and perineal pain ICD-9: [id number] ICD-10: R10.2 02/16/2017 Active Hypothyroidism, unspecified ICD-9: [...] Fill Instructions naproxen 500 mg tablet RxNorm: 358846 1 Tablet(s) PO BID 07/12/2018 07/16/2018 Active Synthroid 112 mcg tablet RxNorm: 274968 TAKE ONE TABLET BY MOUTH DAILY 07/02/2018 12/28/2018 Active Lipitor 10 mg tablet RxNorm: 405114 TAKE ONE TABLET BY MOUTH EVERY DAY 06/06/2018 05/31/2019 Active Lexapro 20 mg tablet RxNorm: 477833 TAKE ONE TABLET BY MOUTH DAILY 05/08/2018 12/03/2018 Active Synthroid 100 mcg tablet RxNorm: 208281 TAKE ONE TABLET BY MOUTH EVERY OTHER DAY 04/10/2018 10/06/2018 Active Synthroid 100 mcg tablet RxNorm: 286989 1 Tablet(s) PO every other day 12/11/2017 04/09/2018 Inactive QOD -alternate with 112mcg DISPENSE BRAND NAME Synthroid 112 mcg tablet RxNorm: 521367 1 Tablet(s) every other day 11/28/2017 03/27/2018 Inactive QOD alternate with 100mcg Synthroid 100 mcg tablet RxNorm: 643678 1 Tablet(s) PO every other day 11/28/2017 12/10/2017 Inactive QOD -alternate with 112mcg DISPENSE BRAND NAME Synthroid 100 mcg tablet RxNorm: 248845 1 Tablet(s) PO every other day 11/28/2017 11/27/2017 Inactive QOD -alternate with 112mcg Xanax 0.5 mg tablet RxNorm: 787346 1 Tablet(s) PO QID as needed anxiety 11/14/2017 01/12/2018 Inactive Lexapro 20 mg tablet RxNorm: 434076 TAKE ONE TABLET BY MOUTH DAILY 11/13/2017 05/07/2018 Inactive Xanax 0.5 mg tablet RxNorm: 183804 1 Tablet(s) PO QID as needed anxiety 09/11/2017 11/08/2017 Inactive Tamiflu 75 mg capsule RxNorm: 100233 1 Capsule(s) PO BID 08/29/2017 09/02/2017 Inactive Synthroid 112 mcg tablet RxNorm: 791483 1 Tablet(s) daily 08/14/2017 11/27/2017 Inactive fyi - medication changed, refill x 6 - #30 pills Synthroid 112 mcg tablet RxNorm: 825402 1 Tablet(s) daily 06/13/2017 08/13/2017 Inactive fyi - medication changed, refill x 6 - #30 pills Lexapro 20 mg tablet RxNorm: 534157 TAKE ONE TABLET BY MOUTH DAILY 06/09/2017 11/05/2017 Inactive Synthroid 112 mcg tablet RxNorm: 704935 TAKE 1 TABLET BY MOUTH DAILY EXCEPT TAKE 1/2 TABLET ON MONDAY, MONDAY, AND Monday05/22/2017 06/12/2017 Inactive Lipitor 10 mg tablet RxNorm: 683773 TAKE ONE TABLET BY MOUTH EVERY DAY 03/08/2017 05/31/2018 Inactive Flagyl 500 mg tablet RxNorm: 054103 1 Tablet(s) PO TID 02/16/2017 02/22/2017 Inactive Xanax 0.5 mg tablet RxNorm: 038136 1 Tablet(s) PO QID as needed anxiety 12/23/2016 03/21/2017 Inactive Synthroid 112 mcg tablet RxNorm: 182576 TAKE 1 TABLET BY MOUTH DAILY EXCEPT FOR TAKE 1/2 TABLET ON MONDAY, MONDAY, AND Monday12/23/2016 04/13/2017 Inactive Lexapro 20 mg tablet RxNorm: 629483 TAKE ONE TABLET BY MOUTH DAILY 11/29/2016 05/27/2017 Inactive Zithromax Z-Que 250 mg tablet RxNorm: 278353 1 Tablet(s) PO UD 09/05/2016 09/09/2016 Inactive zpack Kenalog 40 mg/mL suspension for injection RxNorm: 7044587 1 Milliliter(s) Inj 09/05/2016 09/05/2016 Inactive Lipitor 10 mg tablet RxNorm: 710307 TAKE ONE TABLET BY MOUTH EVERY DAY 08/30/2016 02/25/2017 Inactive Ativan 1 mg tablet RxNorm: 940079 1 Tablet(s) PO Q6 PRN as needed TAKE ONE TABLET BY MOUTH THREE TIMES A DAY OR EVERY 6 HOURS NEEDED FOR ANXIETY 08/30/2016 12/22/2016 Inactive Synthroid 112 mcg tablet RxNorm: 051596 1 Tablet(s) PO daily except one-half tab on /Sat 08/23/2016 12/12/2016 Inactive will refill when needed Lexapro 20 mg tablet RxNorm: 476749 TAKE ONE TABLET BY MOUTH DAILY 08/02/2016 11/28/2016 Inactive Synthroid 112 mcg tablet RxNorm: 154430 1 Tablet(s) PO daily except 1/2 tab mon and sat 05/25/2016 08/22/2016 Inactive will refill when needed Xanax 0.5 mg tablet RxNorm: 579426 1 Tablet(s) PO QID as needed anxiety 05/10/2016 08/29/2016 Inactive Lexapro 20 mg tablet RxNorm: 748073 1 Tablet(s) PO daily 05/03/2016 07/31/2016 Inactive 1/2 tab x 1 week then increase to a full pill daily buspirone 5 mg tablet RxNorm: 063160 TAKE ONE-HALF TABLET BY MOUTH TWICE A DAY 03/15/2016 05/02/2016 Inactive Synthroid 112 mcg tablet RxNorm: 538995 1 Tablet(s) PO daily 02/25/2016 05/24/2016 Inactive Ativan 1 mg tablet RxNorm: 054372 Tablet(s) TAKE ONE TABLET BY MOUTH THREE TIMES A DAY OR EVERY 6 HOURS NEEDED FOR ANXIETY 02/04/2016 05/08/2016 Inactive Synthroid 125 mcg tablet RxNorm: 382434 TAKE ONE TABLET BY MOUTH TWICE WEEKLY 01/11/2016 02/24/2016 Inactive Synthroid 112 mcg tablet RxNorm: 264659 TAKE ONE TABLET BY MOUTH FIVE DAYS A WEEK 01/11/2016 02/24/2016 Inactive Wellbutrin 75 mg tablet RxNorm: 271510 TAKE ONE TABLET BY MOUTH TWICE A DAY 01/11/2016 05/02/2016 Inactive Ativan 1 mg tablet RxNorm: 511991 TAKE ONE TABLET BY MOUTH THREE TIMES A DAY OR EVERY 6 HOURS NEEDED 12/03/2015 12/27/2015 Inactive Lipitor 10 mg tablet RxNorm: 709849 TAKE ONE TABLET BY MOUTH EVERY DAY 12/03/2015 08/28/2016 Inactive Ativan 1 mg tablet RxNorm: 313453 Tablet(s) TAKE ONE TABLET BY MOUTH THREE TIMES A DAY AND TAKE ONE TABLET BY MOUTH EVERY 6 HOURS NEEDED FOR ANXIETY 12/03/2015 12/02/2015 Inactive (Response to an electronic controlled substance refill request - RxReferenceNumber: [id number]) Wellbutrin 75 mg tablet RxNorm: 696595 1 Tablet(s) PO BID 11/13/2015 01/10/2016 Inactive Ativan 1 mg tablet RxNorm: 194068 Tablet(s) TAKE ONE TABLET BY MOUTH THREE TIMES A DAY AND TAKE ONE TABLET BY MOUTH EVERY 6 HOURS NEEDED FOR ANXIETY 09/23/2015 10/30/2015 Inactive (Response to an electronic controlled substance refill request - RxReferenceNumber: [id number]) buspirone 5 mg tablet RxNorm: 493996 TAKE ONE-HALF TABLET BY MOUTH TWICE A DAY 08/18/2015 03/01/2016 Inactive ceftriaxone 500 mg solution for injection RxNorm: 5999108 Inj 07/23/2015 07/23/2015 Inactive Zithromax Z-Que 250 mg tablet RxNorm: 485957 1 Tablet(s) PO UD 07/23/2015 07/27/2015 Inactive GIORGIO buspirone 5 mg tablet RxNorm: 725327 1 Tablet(s) PO daily 07/06/2015 10/03/2015 Inactive buspirone 5 mg tablet RxNorm: 485617 1/2 Tablet(s) PO BID 05/26/2015 07/05/2015 Inactive Lipitor 10 mg tablet RxNorm: 415585 TAKE ONE TABLET BY MOUTH EVERY DAY 04/23/2015 10/19/2015 Inactive Ativan 1 mg tablet RxNorm: 347640 Tablet(s) TAKE ONE TABLET BY MOUTH THREE TIMES A DAY AND TAKE ONE TABLET BY MOUTH EVERY 6 HOURS NEEDED FOR ANXIETY 02/23/2015 04/01/2015 Inactive (Response to an electronic controlled substance refill request - RxReferenceNumber: [id number]) Synthroid 125 mcg tablet RxNorm: 444586 1 Tablet(s) PO UD twice weekly 12/10/2014 06/07/2015 Inactive Synthroid 112 mcg tablet RxNorm: 250025 1 Tablet(s) PO UD TAKE ONE TABLET BY MOUTH 5 days a week 12/10/2014 12/04/2015 Inactive Lexapro 20 mg tablet RxNorm: 016670 1 Tablet(s) PO daily 11/26/2014 11/12/2015 Inactive Lipitor 10 mg tablet RxNorm: 890738 TAKE ONE TABLET BY MOUTH EVERY DAY 10/21/2014 04/18/2015 Inactive amoxicillin 500 mg capsule RxNorm: 961403 1 Capsule(s) PO TID 10/15/2014 10/21/2014 Inactive take probiotic BID x 7 days during abt period amoxicillin 500 mg capsule RxNorm: 441760 1 Capsule(s) PO TID 10/15/2014 10/14/2014 Inactive take probiotic BID x 7 days during abt period Ativan 1 mg tablet RxNorm: 398139 TAKE ONE TABLET BY MOUTH THREE TIMES A DAY AND TAKE ONE TABLET BY MOUTH EVERY 6 HOURS NEEDED FOR ANXIETY 08/21/2014 09/28/2014 Inactive (Response to an electronic controlled substance refill request - RxReferenceNumber: [id number]) Ativan 1 mg tablet RxNorm: 959671 1 Tablet(s) PO tid and Q6 PRN as needed 08/18/2014 08/21/2014 Inactive doxycycline hyclate 100 mg tablet RxNorm: 096713 1 Tablet(s) PO BID 04/23/2014 05/25/2015 Inactive prednisone 10 mg tablets in a dose pack RxNorm: 508236 1 Tablet(s) PO 02/14/2014 05/25/2015 Inactive Kenalog 40 mg/mL suspension for injection RxNorm: 3236189 1 Milliliter(s) Inj 02/11/2014 02/11/2014 Inactive Keflex 500 mg capsule RxNorm: 291073 1 Capsule(s) PO TID 01/21/2014 01/27/2014 Inactive Kenalog 40 mg/mL suspension for injection RxNorm: 9011805 Milliliter(s) Inj 01/21/2014 01/21/2014 Inactive Synthroid 112 mcg tablet RxNorm: 597981 1 Tablet(s) PO daily TAKE ONE TABLET BY MOUTH EVERY DAY 12/05/2013 11/29/2014 Inactive Ativan 1 mg tablet RxNorm: 348989 1 Tablet(s) PO Q6 PRN 11/05/2013 02/02/2014 Inactive Lexapro 20 mg tablet RxNorm: 930219 1 Tablet(s) PO daily 11/05/2013 11/04/2013 Inactive Lexapro 20 mg tablet RxNorm: 049896 1 Tablet(s) PO daily 11/05/2013 10/30/2014 Inactive Lipitor 10 mg tablet RxNorm: 587659 1 Tablet(s) PO QPM TAKE ONE TABLET BY MOUTH EVERY DAY 09/30/2013 10/20/2014 Inactive Lexapro 20 mg tablet RxNorm: 341903 1 Tablet(s) PO daily 09/30/2013 11/04/2013 Inactive Synthroid 125 mcg tablet RxNorm: 476902 1 Tablet(s) PO daily 09/10/2013 12/04/2013 Inactive Synthroid 100 mcg tablet RxNorm: 993098 1 Tablet(s) PO daily TAKE ONE TABLET BY MOUTH EVERY DAY 09/06/2013 09/09/2013 Inactive Lipitor 10 mg tablet RxNorm: 189780 Tablet(s) PO TAKE ONE TABLET BY MOUTH EVERY DAY 08/15/2013 09/29/2013 Inactive Synthroid 100 mcg tablet RxNorm: 774006 1 Tablet(s) PO daily TAKE ONE TABLET BY MOUTH EVERY DAY 04/26/2013 09/05/2013 Inactive Ativan 1 mg tablet RxNorm: 221240 1 Tablet(s) PO Q6 PRN 03/13/2013 No Stop Date Active Synthroid 100 mcg tablet RxNorm: 794991 1 Tablet(s) PO daily TAKE ONE TABLET BY MOUTH EVERY DAY 03/13/2013 04/25/2013 Inactive Lexapro 20 mg tablet RxNorm: 506131 1/2 Tablet(s) PO BID 03/13/2013 09/29/2013 Inactive Synthroid 112 mcg tablet RxNorm: 052108 Tablet(s) PO TAKE ONE TABLET BY MOUTH EVERY DAY 01/08/2013 03/12/2013 Inactive Lexapro 20 mg tablet RxNorm: 289940 Tablet(s) PO TAKE 1/2 TABLET EVERY MORNING AND TAKE ONE TABLET BY MOUTH AT BEDTIME 10/18/2012 03/12/2013 Inactive Lipitor 20 mg tablet RxNorm: 917852 1/2 Tablet(s) PO daily 08/20/2012 02/04/2013 Inactive Lipitor 10 mg tablet RxNorm: 143666 1 Tablet(s) PO daily 05/23/2012 08/19/2012 Inactive Synthroid 112 mcg tablet RxNorm: 757336 1 Tablet(s) PO daily 12/16/2011 01/07/2013 Inactive Synthroid 112 mcg Tab RxNorm: 394618 1 Tablet(s) PO daily 12/16/2011 12/15/2011 Inactive Lipitor 10 mg tablet RxNorm: 772342 1 Tablet(s) PO daily 12/15/2011 05/22/2012 Inactive Synthroid 112 mcg Tab RxNorm: 924172 1 Tablet(s) PO every other day 11/09/2011 12/15/2011 Inactive every other day Synthroid 112 mcg Tab RxNorm: 196470 1 Tablet(s) PO every other day 10/21/2011 11/08/2011 Inactive every other day Synthroid 125 mcg Tab RxNorm: 306549 1 Tablet(s) PO every other day 10/21/2011 12/16/2011 Inactive every other day Lexapro 20 mg tablet RxNorm: 591113 1.5 Tablet(s) PO daily 1/2 pill in AM and 1 pill at bedtime 09/22/2011 04/18/2012 Inactive 1/2 q am 1 q hs diazepam 5 mg Tab RxNorm: 720909 1 Tablet(s) PO daily 1 tab bid prn 09/21/2011 05/17/2012 Inactive Lexapro 20 mg Tab RxNorm: 109531 1.5 Tablet(s) PO daily 1/2 pill in AM and 1 pill at bedtime 08/22/2011 09/21/2011 Inactive diazepam 5 mg Tab RxNorm: 148379 1 Tablet(s) PO daily 1 tab bid prn 06/20/2011 09/20/2011 Inactive diazepam 5 mg Tab RxNorm: 557519 1 Tablet(s) PO daily 1 tab bid prn 06/20/2011 06/19/2011 Inactive diazepam 5 mg Tab RxNorm: 041246 1 Tablet(s) PO daily 1 tab bid prn 06/17/2011 06/19/2011 Inactive Lipitor 10 mg Tab RxNorm: 035672 1 Tablet(s) PO daily 05/31/2011 11/26/2011 Inactive diazepam 5 mg Tab RxNorm: 748073 1 Tablet(s) PO BID 1 tab bid prn 04/21/2011 05/20/2011 Inactive Calcium 600 + D(3) Oral RxNorm: Oral No Start Date Active Menest 0.625 mg Tab RxNorm: 541412 1 Tablet(s) PO daily No Start Date 06/16/2011 Inactive Synthroid 125 mcg tablet RxNorm: 485022 Tablet(s) PO No Start Date 09/09/2013 Inactive Ativan 1 mg tablet RxNorm: 169796 1 Tablet(s) PO Q6 PRN No Start Date 08/21/2011 Inactive aspirin 81 mg Tab, Delayed Release RxNorm: 8797325 1 Tablet(s) PO daily No Start Date 09/29/2013 Inactive Lexapro 10 mg Tab RxNorm: 643422 1 Tablet(s) PO daily No Start Date 08/22/2011 Inactive prednisone 10 mg tablets in a dose pack RxNorm: 998675 1 Tablet(s) PO No Start Date 02/13/2014 Inactive Synthroid 112 mcg Tab RxNorm: 040364 Tablet(s) PO tu/thurs/sat/sun No Start Date 10/20/2011 Inactive lorazepam 1 mg Tab RxNorm: 207323 Tablet(s) PO Q6 PRN No Start Date 11/04/2013 Inactive Lipitor 20 mg tablet RxNorm: 900195 1/2 Tablet(s) PO daily No Start Date 08/20/2012 Inactive Vitamin D2 oral RxNorm: oral No Start Date 09/29/2013 Inactive Synthroid 125 mcg Tab RxNorm: 702863 1 Tablet(s) PO No Start Date 10/20/2011 Inactive synthroid 112 mcg noeed julio vincenzo osorio Medication Administered Medication Codes Instructions Start Date Status Kenalog 40 mg/mL suspension for injection RxNorm: 9786633 1Milliliter 09/05/2016 No longer Active ceftriaxone 500 mg solution for injection RxNorm: 4937136 07/23/2015 No longer Active Kenalog 40 mg/mL suspension for injection RxNorm: 1647611 1Milliliter 02/11/2014 No longer Active Kenalog 40 mg/mL suspension for injection RxNorm: 7514653 Milliliter 01/21/2014 No longer Active Immunizations Vaccine [...] Pelvic and perineal pain ICD-10: R10.2 ICD-9: [id number] 02/16/2017 Acute vaginitis ICD-10: N76.0 ICD-9: 623.5 [...] 29.7 pg 11/23/2017 Cbc With Differential Ord2 Fre[place]% 9.0 % 11/23/2017 Cbc With Differential Ord2 [...] 1.77 K/ul 11/23/2017 Cbc With Differential Ord2 [place] ABS# 0.6 K/ul 11/23/2017 Cbc With Differential Ord2 Eos ABS# 0.2 K/ul 11/23/2017 Cbc With Differential Ord2 Baso ABS# 0.0 K/ul 11/23/2017 Tsh Ord6 TSH (3rd IS) 0.17 uIU/mL 11/23/2017 Free T4 Zkp279 FREE T4 1.10 ng/dL 11/23/2017 Comp Metabolic Clq490 NA 142 mEq/L 11/23/2017 Comp Metabolic Dki895 K 4.4 mEq/L 11/23/2017 Comp Metabolic Vnr420 CL 109 mEq/L 11/23/2017 Comp Metabolic Jam018 CO2 28.0 mEq/L 11/23/2017 Comp Metabolic Duv196 ANION GAP 9 11/23/2017 Comp Metabolic Cqu474 GLUCOSE 106 mg/dL 11/23/2017 Comp Metabolic Zsj904 Creat 0.9 mg/dL 11/23/2017 Comp Metabolic Chf915 eGFR 68 ml/min/1.73m2 11/23/2017 Comp Metabolic Yjb234 BUN 17 mg/dL 11/23/2017 Comp Metabolic Oup627 B/C Ratio 19.3 Ratio 11/23/2017 Comp Metabolic Wvx005 CALCIUM 9.0 mg/dL 11/23/2017 Comp Metabolic Vzp745 ALK PHOS 65 U/L 11/23/2017 Comp Metabolic Orw077 AST(SGOT) 18 U/L 11/23/2017 Comp Metabolic Pak976 ALT(SGPT) 16 U/L 11/23/2017 Comp Metabolic Cxg621 BILI T 0.5 mg/dL 11/23/2017 Comp Metabolic Fkq650 ALBUMIN 4.2 g/dL 11/23/2017 Comp Metabolic Cmx466 TPRO 6.5 g/dL 11/23/2017 Comp Metabolic Swd839 GLOB 2.3 g/dL 11/23/2017 Comp Metabolic Wae914 A/G Ratio 1.8 Ratio 11/23/2017 Comp Metabolic Ums093 Osmo 285 mOsmo 11/23/2017 Lipid Ord30 CHOL [...] hTSH II 4.83 uIU/mL 06/07/2017 Comp Metabolic Qoh134 NA 141 mEq/L 06/07/2017 Comp Metabolic Etp729 K 4.3 mEq/L 06/07/2017 Comp Metabolic Gjs594 CL 106 mEq/L 06/07/2017 Comp Metabolic Ykg609 CO2 26.0 mEq/L 06/07/2017 Comp Metabolic Pzk433 ANION GAP 13 06/07/2017 Comp Metabolic Bkt298 GLUCOSE 93 mg/dL 06/07/2017 Comp Metabolic Mre153 Creat 0.9 mg/dL 06/07/2017 Comp Metabolic Mee377 eGFR 65 ml/min/1.73m2 06/07/2017 Comp Metabolic Goq283 BUN 10 mg/dL 06/07/2017 Comp Metabolic Xfp495 B/C Ratio 11.0 Ratio 06/07/2017 Comp Metabolic Swd935 CALCIUM 8.9 mg/dL 06/07/2017 Comp Metabolic Kgb130 ALK PHOS 69 U/L 06/07/2017 Comp Metabolic Wic723 AST(SGOT) 18 U/L 06/07/2017 Comp Metabolic Owp147 ALT(SGPT) 15 U/L 06/07/2017 Comp Metabolic Aqn678 BILI T 0.5 mg/dL 06/07/2017 Comp Metabolic Ykr993 ALBUMIN 4.1 g/dL 06/07/2017 Comp Metabolic Aqy926 TPRO 6.5 g/dL 06/07/2017 Comp Metabolic Brr805 GLOB 2.4 g/dL 06/07/2017 Comp Metabolic Ely901 A/G Ratio 1.7 Ratio 06/07/2017 Comp Metabolic Jdu423 Osmo 280 mOsmo 06/07/2017 Cbc With Differential [...] 30.7 pg 06/07/2017 Cbc With Differential Ord2 Freestone% 9.1 % 06/07/2017 Cbc With Differential Ord2 [...] 1.62 K/ul 06/07/2017 Cbc With Differential Ord2 [place] ABS# 0.5 K/ul 06/07/2017 Cbc With Differential Ord2 Eos ABS# 0.2 K/ul 06/07/2017 Cbc With Differential Ord2 Baso ABS# 0.0 K/ul 06/07/2017 Free T4 Rlo464 FREE T4 0.92 ng/dL 06/07/2017 Tsh Ord6 hTSH II 1.07 uIU/mL 11/17/2016 Free T4 Yte715 FREE T4 1.02 ng/dL 11/17/2016 Lipid Ord30 CHOL 195 mg/dL 10/13/2016 Lipid Ord30 HDL 68.0 mg/dl 10/13/2016 Lipid Ord30 TRIG 69 mg/dL 10/13/2016 Lipid Ord30 LDL 113 mg/dL 10/13/2016 Lipid Ord30 C/HDL 2.9 Ratio 10/13/2016 Comp Metabolic Kec907 NA 138 mEq/L 10/13/2016 Comp Metabolic Lwf053 K 4.4 mEq/L 10/13/2016 Comp Metabolic Kwh574 CL 102 mEq/L 10/13/2016 Comp Metabolic Dgq047 CO2 29.0 mEq/L 10/13/2016 Comp Metabolic Qpt296 ANION GAP 11 10/13/2016 Comp Metabolic Zol179 GLUCOSE 85 mg/dL 10/13/2016 Comp Metabolic Mxz550 Creat 1.0 mg/dL 10/13/2016 Comp Metabolic Mkg055 eGFR 59 ml/min/1.73m2 10/13/2016 Comp Metabolic Hyk661 BUN 21 mg/dL 10/13/2016 Comp Metabolic Psj666 B/C Ratio 21.2 Ratio 10/13/2016 Comp Metabolic Lpm254 CALCIUM 9.7 mg/dL 10/13/2016 Comp Metabolic Flh143 ALK PHOS 70 U/L 10/13/2016 Comp Metabolic Eki495 AST(SGOT) 17 U/L 10/13/2016 Comp Metabolic Dvo783 ALT(SGPT) 14 U/L 10/13/2016 Comp Metabolic Ptq733 BILI T 0.9 mg/dL 10/13/2016 Comp Metabolic Nul350 ALBUMIN 4.4 g/dL 10/13/2016 Comp Metabolic Aeb741 TPRO 7.1 g/dL 10/13/2016 Comp Metabolic Ijj176 GLOB 2.7 g/dL 10/13/2016 Comp Metabolic Rup035 A/G Ratio 1.6 Ratio 10/13/2016 Comp Metabolic Ubb728 Osmo 278 mOsmo 10/13/2016 Cbc With Differential [...] 29.7 pg 10/13/2016 Cbc With Differential Ord2 [place]% 7.7 % 10/13/2016 Cbc With Differential Ord2 [...] 1.43 K/ul 10/13/2016 Cbc With Differential Ord2 [place] ABS# 0.5 K/ul 10/13/2016 Cbc With Differential Ord2 Eos ABS# 0.1 K/ul 10/13/2016 Cbc With Differential Ord2 Baso ABS# 0.0 K/ul 10/13/2016 Free T4 Qyw633 FREE T4 1.31 ng/dL 08/17/2016 Tsh Ord6 hTSH II 0.64 uIU/mL 08/17/2016 Free T4 Vbn199 FREE T4 1.49 ng/dL 05/10/2016 Comp Metabolic Efu359 NA 139 mEq/L 05/10/2016 Comp Metabolic Qam224 K 4.5 mEq/L 05/10/2016 Comp Metabolic Orv151 CL 104 mEq/L 05/10/2016 Comp Metabolic Wqq690 CO2 24.0 mEq/L 05/10/2016 Comp Metabolic Qdp720 ANION GAP 16 05/10/2016 Comp Metabolic Pzi123 GLUCOSE 87 mg/dL 05/10/2016 Comp Metabolic Nux855 Creat 0.9 mg/dL 05/10/2016 Comp Metabolic Ric418 eGFR 71 ml/min/1.73m2 05/10/2016 Comp Metabolic Qpz247 BUN 12 mg/dL 05/10/2016 Comp Metabolic Hro667 B/C Ratio 14.1 Ratio 05/10/2016 Comp Metabolic Bbh377 CALCIUM 9.6 mg/dL 05/10/2016 Comp Metabolic Mva959 ALK PHOS 89 U/L 05/10/2016 Comp Metabolic Kkf743 AST(SGOT) 17 U/L 05/10/2016 Comp Metabolic Ndx835 ALT(SGPT) 17 U/L 05/10/2016 Comp Metabolic Xuc751 BILI T 0.9 mg/dL 05/10/2016 Comp Metabolic Jag497 ALBUMIN 4.2 g/dL 05/10/2016 Comp Metabolic Gcx069 TPRO 6.7 g/dL 05/10/2016 Comp Metabolic Hfw306 GLOB 2.5 g/dL 05/10/2016 Comp Metabolic Gql105 A/G Ratio 1.7 Ratio 05/10/2016 Comp Metabolic Jaq127 Osmo 277 mOsmo 05/10/2016 Cbc With Differential [...] 85.5 fl 05/10/2016 Cbc With Differential Ord2 [place]% 8.3 % 05/10/2016 Cbc With Differential Ord2 [...] 1.57 K/ul 05/10/2016 Cbc With Differential Ord2 [place] ABS# 0.6 K/ul 05/10/2016 Cbc With Differential Ord2 Eos ABS# 0.2 K/ul 05/10/2016 Cbc With Differential Ord2 Baso ABS# 0.0 K/ul 05/10/2016 Tsh Ord6 hTSH II 0.03 uIU/mL 05/10/2016 Free T4 Kcy015 FREE T4 1.67 ng/dL 02/18/2016 Tsh Ord6 hTSH II 0.06 uIU/mL 02/18/2016 Comp Metabolic Qed841 NA 138 mEq/L 02/18/2016 Comp Metabolic Jvk095 K 4.5 mEq/L 02/18/2016 Comp Metabolic Agr516 CL 104 mEq/L 02/18/2016 Comp Metabolic Lyf193 CO2 26.0 mEq/L 02/18/2016 Comp Metabolic Rwa263 ANION GAP 13 02/18/2016 Comp Metabolic Fhw110 GLUCOSE 88 mg/dL 02/18/2016 Comp Metabolic Bjb258 Creat 0.9 mg/dL 02/18/2016 Comp Metabolic Sck905 eGFR 69 ml/min/1.73m2 02/18/2016 Comp Metabolic Ert182 BUN 14 mg/dL 02/18/2016 Comp Metabolic New894 B/C Ratio 16.1 Ratio 02/18/2016 Comp Metabolic Ljv225 CALCIUM 9.4 mg/dL 02/18/2016 Comp Metabolic Hwj968 ALK PHOS 95 U/L 02/18/2016 Comp Metabolic Cxi152 AST(SGOT) 19 U/L 02/18/2016 Comp Metabolic Gax610 ALT(SGPT) 18 U/L 02/18/2016 Comp Metabolic Hyh906 BILI T 0.7 mg/dL 02/18/2016 Comp Metabolic Rwu852 ALBUMIN 4.4 g/dL 02/18/2016 Comp Metabolic Mml738 TPRO 6.9 g/dL 02/18/2016 Comp Metabolic Clb000 GLOB 2.5 g/dL 02/18/2016 Comp Metabolic Jei957 A/G Ratio 1.7 Ratio 02/18/2016 Comp Metabolic Jpd021 Osmo 276 mOsmo 02/18/2016 Lipid Ord30 CHOL [...] 28.9 pg 02/18/2016 Cbc With Differential Ord2 [place]% 10.5 % 02/18/2016 Cbc With Differential Ord2 [...] 1.08 K/ul 02/18/2016 Cbc With Differential Ord2 [place] ABS# 0.6 K/ul 02/18/2016 Cbc With Differential Ord2 Eos ABS# 0.0 K/ul 02/18/2016 Cbc With Differential Ord2 Baso ABS# 0.0 K/ul 02/18/2016 Comp Metabolic Ysq270 NA 136 mEq/L 06/08/2015 Comp Metabolic Zes308 K 3.9 mEq/L 06/08/2015 Comp Metabolic Uwb872 CL 103 mEq/L 06/08/2015 Comp Metabolic Pou138 CO2 25.0 mEq/L 06/08/2015 Comp Metabolic Yib752 ANION GAP 12 06/08/2015 Comp Metabolic Vfz109 GLUCOSE 91 mg/dL 06/08/2015 Comp Metabolic Wxi221 Creat 0.9 mg/dL 06/08/2015 Comp Metabolic Xbb797 eGFR 68 ml/min/1.73m2 06/08/2015 Comp Metabolic Gli882 BUN 10 mg/dL 06/08/2015 Comp Metabolic Sfs267 B/C Ratio 11.4 Ratio 06/08/2015 Comp Metabolic Dcn478 CALCIUM 9.4 mg/dL 06/08/2015 Comp Metabolic Ync684 ALK PHOS 88 U/L 06/08/2015 Comp Metabolic Wlb874 AST(SGOT) 20 U/L 06/08/2015 Comp Metabolic Cbr039 ALT(SGPT) 18 U/L 06/08/2015 Comp Metabolic Kjg847 BILI T 0.8 mg/dL 06/08/2015 Comp Metabolic Zfd926 ALBUMIN 4.4 g/dL 06/08/2015 Comp Metabolic Yqp230 TPRO 7.0 g/dL 06/08/2015 Comp Metabolic Dct689 GLOB 2.6 g/dL 06/08/2015 Comp Metabolic Wir561 A/G Ratio 1.7 Ratio 06/08/2015 Comp Metabolic Icl815 Osmo 271 mOsmo 06/08/2015 Tsh Ord6 hTSH [...] Ord2 RDW 14.4 % 06/08/2015 LYME EIA [id number] LYME EIA 0.24 04/25/2014 TULAREM AB [id number] TULAREM AB <1:20 04/24/2014 RMSF IFA 7445705 IGG RMSF <1:16 04/24/2014 RMSF IFA 9187889 IGM RMSF <1:10 04/24/2014 E CHAFF AB [id number] IGG E CHFF <1:16 04/24/2014 E CHAFF AB 4332110 IGM E CHFF <1:10 04/24/2014 ICT OCCULT [id number] ICT OCCULT NEG 10/11/2013 Review of Systems [...] Codes Date URINALYSIS NONAUTO W/O SCOPE CPT-4: 70093 05/07/2018 ADMIN INFLUENZA VIRUS VAC CPT-4: G0008 04/24/2018 FLU VACC PRSV FREE INC ANTIG CPT-4: 97798 04/24/2018 PPPS, SUBSEQ VISIT CPT- 4: G0439 11/28/2017 ADMIN INFLUENZA VIRUS VAC CPT-4: G0008 06/07/2017 FLU VACC PRSV FREE INC ANTIG CPT-4: 81016 06/07/2017 PPPS, SUBSEQ VISIT CPT- 4: G0439 11/17/2016 TRIAMCINOLONE ACET INJ NOS CPT-4: J3301 09/05/2016 PPPS, SUBSEQ VISIT CPT- 4: G0439 11/13/2015 PNEUMOCOCCAL VACC 13 STEPHANIE IM Formatting Model/CDA Sections, Assigned to/Lila Colon SNOMED CT: 74556245 CPT-4: 86408Bwybnol 11/13/2015 ADMIN PNEUMOCOCCAL VACCINE SNOMED CT: 14819715 CPT-4: G0009 11/13/2015 ROCEPHIN, PER 250 MG CPT- 4: J0696 07/23/2015 URINALYSIS NONAUTO W/O SCOPE CPT-4: 66330 10/10/2014 ROUTINE VENIPUNCTURE CPT- 4: 84698 04/23/2014 Pneumococcal Polysaccharide Vaccine, 23-Valent, Ad CPT-4: 24320 04/15/2014 ADMIN INFLUENZA VIRUS VAC CPT-4: G0008 04/15/2014 FLU VAC NO PRSV 4 STEPHANIE 3 YRS+ CPT-4: 50729 04/15/2014 ADMIN PNEUMOCOCCAL VACCINE SNOMED CT: 07862713 CPT-4: G0009 04/15/2014 THER/PROPH/DIAG INJ SC/IM CPT-4: 88339 02/11/2014 TRIAMCINOLONE ACET INJ NOS CPT-4: J3301 02/11/2014 TRIAMCINOLONE ACET INJ NOS CPT-4: J3301 01/21/2014 INITIAL PREVENTIVE EXAM CPT-4: G0402 09/30/2013 PRESCRIP TRANSMIT VIA ERX SY CPT-4: G8553 03/13/2013 Vital Signs Date Vital 07/12/2018 Blood Pressure 1: 126/76 Code: 8480-6 BMI: 29.3 Code: 19768-1 Heart Rate 1: 70 bpm Height: 5'5" SpO2: 96% Weight: 176 lbs 05/07/2018 Blood Pressure 1: 118/72 Code: 8480-6 BMI: 29.5 Code: 71310-3 Heart Rate 1: 71 bpm Height: 5'5" SpO2: 98% Weight: 177 lbs 02/21/2018 Blood Pressure 1: 120/78 Code: 8480-6 BMI: 29.0 Code: 49232-4 Heart Rate 1: 68 bpm Height: 5'5" SpO2: 96% Weight: 174 lbs 11/28/2017 Blood Pressure 1: 122/98 Code: 8480-6 BMI: 31.0 Code: 44580-1 Heart Rate 1: 89 bpm Height: 5'5" SpO2: 98% Waist Measure (cm): 91 cm Weight: 186 lbs 08/29/2017 Blood Pressure 1: 146/80 Code: 8480-6 BMI: 29.5 Code: 20952-8 Heart Rate 1: 68 bpm Height: 5'5" SpO2: 98% Temperature: 36.6 (C) / 97.8 (F) Weight: 177 lbs 06/13/2017 Blood Pressure 1: 138/76 Code: 8480-6 BMI: 29.6 Code: 07698-4 Heart Rate 1: 63 bpm Height: 5'5" SpO2: 95% Weight: 178 lbs 02/16/2017 Blood Pressure 1: 128/80 Code: 8480-6 BMI: 29.9 Code: 54539-3 Heart Rate 1: 77 bpm Height: 5'5" SpO2: 96% Weight: 179 lbs 8 oz 02/06/2017 Blood Pressure 1: 140/80 Code: 8480-6 BMI: 29.8 Code: 05971-7 Heart Rate 1: 72 bpm Height: 5'5" SpO2: 97% Weight: 179 lbs 11/17/2016 Blood Pressure 1: 130/72 Code: 8480-6 BMI: 29.6 Code: 63647-3 Heart Rate 1: 62 bpm Height: 5'5" SpO2: 98% Waist Measure (cm): 91 cm Weight: 178 lbs 10/12/2016 Blood Pressure 1: 128/78 Code: 8480-6 BMI: 28.5 Code: 39524-4 Heart Rate 1: 62 bpm Height: 5'5" SpO2: 97% Weight: 171 lbs 09/05/2016 Blood Pressure 1: 122/70 Code: 8480-6 BMI: 28.0 Code: 16223-3 Heart Rate 1: 65 bpm Height: 5'5" SpO2: 94% Weight: 168 lbs 06/21/2016 Blood Pressure 1: 120/82 Code: 8480-6 BMI: 28.3 Code: 04327-3 Heart Rate 1: 65 bpm Height: 5'5" SpO2: 97% Weight: 170 lbs 05/24/2016 Blood Pressure 1: 136/80 Code: 8480-6 BMI: 28.1 Code: 25394-8 Heart Rate 1: 71 bpm Height: 5'5" SpO2: 96% Weight: 169 lbs 05/10/2016 Blood Pressure 1: 120/82 Code: 8480-6 BMI: 27.6 Code: 94946-7 Heart Rate 1: 86 bpm Height: 5'5" SpO2: 95% Weight: 166 lbs 05/03/2016 Blood Pressure 1: 124/78 Code: 8480-6 BMI: 28.1 Code: 68199-9 Heart Rate 1: 88 bpm Height: 5'5" SpO2: 97% Weight: 169 lbs 11/13/2015 Blood Pressure 1: 130/60 Code: 8480-6 BMI: 30.0 Code: 22616-2 Heart Rate 1: 7 bpm Height: 5'5" Waist Measure (cm): 97 cm Weight: 180 lbs 07/23/2015 Blood Pressure 1: 124/70 Code: 8480-6 BMI: 29.6 Code: 39124-1 Heart Rate 1: 74 bpm Height: 5'5" SpO2: 96% Temperature: 36.7 (C) / 98.1 (F) Weight: 178 lbs 07/06/2015 Blood Pressure 1: 138/78 Code: 8480-6 BMI: 29.6 Code: 12143-9 Heart Rate 1: 84 bpm Height: 5'5" SpO2: 96% Weight: 178 lbs 05/26/2015 Blood Pressure 1: 122/80 Code: 8480-6 BMI: 29.6 Code: 91209-2 Heart Rate 1: 84 bpm Height: 5'5" Weight: 178 lbs 02/16/2015 Blood Pressure 1: 124/82 Code: 8480-6 BMI: 29.0 Code: 62141-0 Heart Rate 1: 68 bpm Height: 5'5" Weight: 174 lbs 12/10/2014 Blood Pressure 1: 112/64 Code: 8480-6 BMI: 28.6 Code: 14788-0 Heart Rate 1: 80 bpm Height: 5'5" Weight: 172 lbs 10/16/2014 Blood Pressure 1: 128/84 Code: 8480-6 Heart Rate 1: 64 bpm Weight: 172 lbs 10/09/2014 Blood Pressure 1: 136/90 Code: 8480-6 BMI: 28.6 Code: 95668-3 Heart Rate 1: 76 bpm Height: 5'5" Weight: 172 lbs 08/26/2014 Blood Pressure 1: 118/72 Code: 8480-6 BMI: 29.0 Code: 37883-0 Heart Rate 1: 76 bpm Height: 5'5" Weight: 174 lbs 05/16/2014 Blood Pressure 1: 110/72 Code: 8480-6 BMI: 29.0 Code: 58051-6 Height: 5'5" Weight: 174 lbs 04/23/2014 Blood Pressure 1: 124/70 Code: 8480-6 BMI: 29.0 Code: 52964-7 Heart Rate 1: 72 bpm Height: 5'5" Weight: 174 lbs 04/15/2014 Temperature: 36.5 (C) / 97.7 (F) 01/21/2014 Blood Pressure 1: 98/62 Code: 8480-6 BMI: 29.0 Code: 17198- 5 Heart Rate 1: 84 bpm Height: 5'5" Temperature: 37.1 (C) / 98.7 (F) Weight: 174 lbs 12/05/2013 Blood Pressure 1: 138/88 Code: 8480-6 BMI: 29.0 Code: 69762-5 Heart Rate 1: 60 bpm Height: 5'5" Weight: 174 lbs 11/05/2013 Blood Pressure 1: 118/80 Code: 8480-6 BMI: 28.8 Code: 44747-0 Heart Rate 1: 76 bpm Height: 5'5" Weight: 173 lbs 10/15/2013 Blood Pressure 1: 120/78 Code: 8480-6 BMI: 29.1 Code: 68113-2 Heart Rate 1: 88 bpm Height: 5'5" Weight: 175 lbs 09/30/2013 Blood Pressure 1: 112/84 Code: 8480-6 BMI: 29.1 Code: 59319-5 Heart Rate 1: 68 bpm Height: 5'5" Weight: 175 lbs 03/13/2013 Blood Pressure 1: 112/84 Code: 8480-6 BMI: 28.6 Code: 13769-3 Heart Rate 1: 64 bpm Height: 5'5" Weight: 173 lbs 10/04/2012 Blood Pressure 1: 120/72 Code: 8480-6 BMI: 28.0 Code: 73220-7 Heart Rate 1: 64 bpm Height: 5'5" Weight: 169 lbs 08/22/2011 Blood Pressure 1: 134/84 Code: 8480-6 BMI: 27.5 Code: 34442-5 Heart Rate 1: 68 bpm Height: 5'5" Respiratory Rate: 16 bpm Weight: 166 lbs 8 oz 06/17/2011 Blood Pressure 1: 120/76 Code: 8480-6 BMI: 27.0 Code: 80401-2 Heart Rate 1: 58 bpm Height: 5'5" [...] hand[ICD10: M79.641] [facility] CPT-4: 08661 07/12/2018 ([id number]) 99702 EST. PATIENT, LEVEL II Diagnosis: Dysuria[ICD10: R30.0] [facility] CPT-4: 99020 05/07/2018 10955 EST. PATIENT, LEVEL IV Diagnosis: Tinnitus, bilateral[ICD10: H93.13] Diagnosis: Other allergic rhinitis[ICD10: J30.89] Gina Alvarado MD, [facility] CPT- 4: 12461 02/21/2018 47516 EST. PATIENT, LEVEL III Diagnosis: Acute laryngopharyngitis[ICD10: J06.0] Diagnosis: Other allergic rhinitis[ICD10: J30.89] Gina Alvarado MD, [facility] CPT- 4: 22986 08/29/2017 ([id number]) 75884 EST. PATIENT, LEVEL IV Diagnosis: Postprocedural hypothyroidism[ICD10: E89.0] Diagnosis: Major depressive disorder, recurrent, moderate[ICD10: F33.1] Diagnosis: Generalized anxiety disorder[ICD10: F41.1] Elina Alvarado MD, [facility] CPT-4: 05414 06/13/2017 ([id number]) 94410 EST. PATIENT, LEVEL IV Diagnosis: Pelvic and perineal pain[ICD10: R10.2] Diagnosis: Acute vaginitis[ICD10: N76.0] Suma Alvarado MD, [facility] CPT-4: 24309 02/16/2017 ([id number]) 53421 EST. PATIENT, LEVEL III Diagnosis: Postprocedural hypothyroidism[ICD10: E89.0] Diagnosis: Major depressive disorder, recurrent, moderate[ICD10: F33.1] Elina Alvarado MD, [facility] CPT-4: 37297 02/06/2017 ([id number]) 34445 EST. PATIENT, LEVEL III Diagnosis: Generalized anxiety disorder[ICD10: F41.1] Elina Alvarado MD, [facility] CPT-4: 86423 10/12/2016 ([id number]) 03064 EST. PATIENT, LEVEL III Diagnosis: Cough[ICD10: R05] Diagnosis: Acute upper respiratory infection, unspecified[ICD10: J06.9] Suma Alvarado MD, [facility] CPT-4: 29905 09/05/2016 ([id number]) 01223 EST. PATIENT, LEVEL III Diagnosis: Generalized anxiety disorder[ICD10: F41.1] Diagnosis: Major depressive disorder, recurrent, moderate[ICD10: F33.1] Diagnosis: Postprocedural hypothyroidism[ICD10: E89.0] Elina Alvarado MD, [facility] CPT-4: 15452 06/21/2016 ([id number]) 99039 EST. PATIENT, LEVEL III Diagnosis: Major depressive disorder, recurrent, moderate[ICD10: F33.1] Elina Alvarado MD [facility] CPT-4: 68299 05/24/2016 ([id number]) 61428 EST. PATIENT, LEVEL III Diagnosis: Major depressive disorder, recurrent, moderate[ICD10: F33.1] Elina Alvarado MD, [facility] CPT-4: 24012 05/10/2016 ([id number]) 61937 EST. PATIENT, LEVEL III Diagnosis: Generalized anxiety disorder[ICD10: F41.1] Diagnosis: Major depressive disorder, recurrent, moderate[ICD10: F33.1] Suma Alvarado MD, [facility] CPT-4: 65967 05/03/2016 ([id number]) 77562 EST. PATIENT, LEVEL III Diagnosis: Cough[ICD10: R05] Diagnosis: Acute upper respiratory infection, unspecified[ICD10: J06.9] Suma Alvarado MD, [facility] CPT-4: 92837 07/23/2015 ([id number]) 93444 EST. PATIENT, LEVEL III Diagnosis: Hypothyroidism, unspecified[ICD10: E03.9] Diagnosis: Generalized anxiety disorder[ICD10: F41.1] Diagnosis: Other depressive episodes[ICD10: F32.8] Elina Alvarado MD, [facility] CPT-4: 28389 07/06/2015 [id number]) 99724 EST. PATIENT, LEVEL IV Diagnosis: Generalized anxiety disorder[ICD10: F41.1] Diagnosis: Major depressive disorder, recurrent, unspecified[ICD10: F33.9] Elina Alvarado MD, [facility] CPT-4: 18738 05/26/2015 [id number]) 56783 EST. PATIENT, LEVEL II Diagnosis: 2Nd degree burn of multiple fingers of right hand not including thumb[ICD9: 944.23] Suma Alvarado MD, [facility] CPT-4: 54622 02/16/2015 25737 51815 EST. PATIENT, LEVEL IV Diagnosis: Hammertoe[ICD9: 735.4] Diagnosis: Foot pain[ICD9: 729.5] Diagnosis: HYPOTHYROIDISM[ICD9: 244.9] Elina Alvarado MD [facility] CPT-4: 74334 12/10/2014 ([id number]) 31135 EST. PATIENT, LEVEL III Diagnosis: Urinary incontinence[ICD9: 788.30] Diagnosis: Pelvic pain in female[ICD9: 625.9] Elina Alvarado MD [facility] CPT- 4: 02254 10/16/2014 ([id number]) 15637 EST. PATIENT, LEVEL III Diagnosis: Urinary incontinence[ICD9: 788.30] Diagnosis: Pelvic pain in female[ICD9: 625.9] Suma Alvarado MD [facility] CPT- 4: 46798 10/09/2014 ([id number]) 62717 EST. PATIENT, LEVEL III Diagnosis: HYPOTHYROIDISM[ICD9: 244.9] Elina Alvarado MD [facility] CPT-4: 55710 08/26/2014 ([id number]) 73253 EST. PATIENT, LEVEL III Diagnosis: Neck pain[ICD9: 723.1] Diagnosis: Muscle tension headache[ICD9: 307.81] Suma Alvarado MD [facility] CPT-4: 17174 05/16/2014 ([id number]) 62916 EST. PATIENT, LEVEL IV Diagnosis: Arthropod bite[ICD9: 919.4] Diagnosis: Poison gilmer dermatitis[ICD9: 692.6] Diagnosis: Arthralgia[ICD9: 719.40] Diagnosis: Myalgia[ICD9: 729.1] Elina Alvarado MD, [facility] CPT-4: 50445 04/23/2014 ([id number]) 58991 EST. PATIENT, LEVEL III Diagnosis: ACUTE URI[ICD9: 465.9] Diagnosis: COUGH[ICD9: 786.2] Suma Alvarado MD [facility] CPT-4: 07971 01/21/2014 ([id number]) 51806 EST. PATIENT, LEVEL III Diagnosis: HYPOTHYROIDISM[ICD9: 244.9] Diagnosis: GENERALIZED ANXIETY DISEASE[ICD9: 300.02] Elina Alvarado MD [facility] CPT-4: 36670 12/05/2013 ([id number]) 75112 EST. PATIENT, LEVEL III Diagnosis: GENERALIZED ANXIETY DISEASE[ICD9: 300.02] Diagnosis: DEPRESSIVE DISORDER NEC[ICD9: 311] RUBIA Alex MD CPT- 4: 02984 11/05/2013 ([id number]) 84203 EST. PATIENT, LEVEL III Diagnosis: HYPOTHYROIDISM[ICD9: 244.9] RUBIA Alex MD CPT-4: 15904 10/15/2013 ([id number]) Miscellaneous no charge Diagnosis: Colon cancer screening[ICD9: V76.51] RUBIA Alex MD CPT- 4: 35059 10/10/2013 ([id number]) 59579 EST. PATIENT, LEVEL IV Diagnosis: HYPOTHYROIDISM[ICD9: 244.9] Diagnosis: DEPRESSIVE DISORDER NEC[ICD9: 311] Diagnosis: GENERALIZED ANXIETY DISEASE[ICD9: 300.02] Diagnosis: HYPERLIPIDEMIA[ICD9: 272.4] RUBIA Alex MD CPT-4: 94963 03/13/2013 ([id number]) 38782 EST. PATIENT, LEVEL IV Diagnosis: HYPERLIPIDEMIA[ICD9: 272.4] Diagnosis: HYPOTHYROIDISM[ICD9: 244.9] Diagnosis: GENERALIZED ANXIETY DISEASE[ICD9: 300.02] Diagnosis: DEPRESSIVE DISORDER NEC[ICD9: 311] Elina Alvarado MD [facility] CPT- 4: 43619 10/04/2012 ([id number]) 64625 EST. PATIENT, LEVEL III Diagnosis: VICTOR HUGO (generalized anxiety disorder)[ICD9: 300.02] Diagnosis: Chronic depression[ICD9: 311] Elina Alvarado MD, [facility] CPT-4: 59196 08/22/2011 25640 EST. PATIENT, LEVEL IV Diagnosis: CHEST PAIN NEC[ICD9: 786.59] Diagnosis: HYPERLIPIDEMIA[ICD9: 272.4] Diagnosis: POSTSURGICAL HYPOTHYROIDISM[ICD9: 244.0] Elina Alvarado MD, [facility] CPT-4: 98828 06/17/2011 Plan of Care Planned Activity Notes Codes Status Date Visit Plan: Right hand pain - ongoing - will send for x-ray - The pt is to use prn antiinflammatories to manage acute pain. The patient is to call the office if the pain is worsening or does not improve. 07/12/2018 Patient Education: Patient Medication Summary Completed 07/12/2018 Care Plan: X-RAY EXAM OF HAND LOINC : 40775-2 Pending 07/12/2018 Visit Plan: Dysuria- UA negative -symptoms resolved -instructed patient to continue with adequate fluid intake and call if symptoms return. Patient verbalized understanding of plan. 05/07/2018 Appointment: Suma Choi WPtel: [facility]5 [phone] (15 min) Moderate 05/07/2018 Patient Education: Patient Medication Summary Completed 05/07/2018 Appointment: Injection 04/24/2018 Patient Education: Patient Medication Summary Completed 04/24/2018 Referral: Peter Rubio [address] Referral Completed 03/22/2018 Visit Plan: Allergies [...] to ENT for hearing testing 02/21/2018 Appointment: Gian Kern WPtel: [facility]3 [facility]66[facility] (15 min) Moderate 02/21/2018 Patient Education: Patient Medication Summary Completed 02/21/2018 Care Plan: Referral Order SNOMED-CT : [id number] Pending 02/21/2018 Appointment: Elina Alvarado WPtel: [facility]66[facility] (15 min) Moderate 12/14/2017 [...] Completed 11/28/2017 Appointment: [facility]el[facility] [phone] [facility] [facility] - Annual Wellness Visit 11/21/2017 [...] the nasal steroid allergy spray. 08/29/2017 Appointment: Gian [facility]ern [phone] (15 min) Moderate 08/29/2017 Patient Education: Patient [...] counseling. 06/13/2017 Appointment: [facility]ado [facility]Ptel: [phone] [facility] [place] (15 min) Moderate 06/13/2017 Patient Education: Patient Medication Summary Completed 06/13/2017 Appointment: Injection 06/07/2017 Patient Education: Patient Medication Summary Completed 06/07/2017 Visit Plan: Pelvic pain-UA negative-pap done today in the office- will start patient on flagyl for bacterial vaginosis-instructed patient to call if symptoms do not resolve or if any worse. Patient verbalized understanding of plan. 02/16/2017 Appointment: Suma [phone] [phone] [place] (30 min) Complex 02/16/2017 Patient Education: [...] current medications. 02/06/2017 Appointment: El[facility]varado [facility]Ptel: [phone] [facility] [place] (15 min) Moderate 02/06/2017 Patient [...] surrogate. 11/17/2016 Appointment: [facility]ina [facility]ern [facility]Ptel[phone] [facility] [place] [facility] - Annual Wellness Visit 11/17/2016 [...] medications. 10/12/2016 Appointment: El[facility] Alvarado WPtel: [phone] [facility] (15 min) Moderate 10/12/2016 Patient Education: Patient [...] J06.9 09/05/2016 Appointment: Sum[facility]oi [facility]el[phone] [phone] (10 min) Simple 09/05/2016 Patient Education: Patient [...] with lexapro 06/21/2016 Appointment: Elina Alvarado WPtel: [phone] [facility] [place] (15 min) Moderate 06/21/2016 Patient Education: Patient Medication Summary Completed 06/21/2016 Visit Plan: Depression - improved with lexapro - continue with current treatment and counseling. 05/24/2016 Appointment: Elina Alvarado WPtel: [phone] [facility] [place] (15 min) Moderate 05/24/2016 Patient Education: Patient Medication Summary Completed 05/24/2016 Visit Plan: Depression - improved on the Lexapro - stop ativan - start on xanax 05/10/2016 Appointment: Elina Alvarado WPtel: [facility]8 [facility] [place] (15 min) Moderate 05/10/2016 Patient [...] Summary Completed 05/03/2016 Appointment: Suma Choi WPtel: [facility]0 [phone] [place] (15 min) Moderate 02/26/2016 Visit Plan: [...] and to maintain independece in the home. Fkjqzhqdwz-porjnwqkaooc-demgkn to wellbutrin Pneumonia 13 administered today in [...] and to maintain independece in the home. Zqdishoqrd-utwcujkqlfln-kpmuox to wellbutrin Pneumonia 13 administered today in the office 11/13/2015 Appointment: [facility] - Annual Wellness Visit 11/13/2015 Patient Education: Patient Medication Summary Completed 11/13/2015 Patient Education: Obesity Completed 11/13/2015 Care Plan: SCREENINGMAMMOGRAPHYDIGITAL LOINC : 66690-7 Ordered 11/13/2015 Appointment: Lab Draw 08/10/2015 Visit [...] current medications. 07/06/2015 Appointment: Elina Alvarado WPtel: [facility] (30 min) Complex 07/06/2015 Patient Education: [...] upon discharge. 12/10/2014 Appointment: Elina Alvarado WPtel: [facility]5 [facility] Surgical Clearance 12/10/2014 Patient Education: Patient Medication Summary Completed 12/10/2014 Visit Plan: Urinary incontinence and Pelvic discomfort - recommended pt to have evaluation by Dr. Brandt - pt agreeable to referral. Pt is to call if abdominal pain does not improve. 10/16/2014 Appointment: Elina Alvarado WPtel: [address] [place], [place] [phone] Follow up 10/16/2014 Patient Education: Patient Medication Summary Completed 10/16/2014 Care Plan: Referral Order SNOMED-CT : [id number] Ordered 10/16/2014 Patient Education: Patient Medication Summary Completed 10/10/2014 Visit Plan: Pelvic pain-history of mesh implant-recommend CT abd/pelvis to evaluate for any abnormality-refer to Dr Woods if pain does not improve Urinary incontinence-check UA with C&S if indicated 10/09/2014 Patient Education: Patient Medication Summary Completed 10/09/2014 Care Plan: CT ABD & PELV 1/> REGNS LOINC : 15931-9 Ordered 10/09/2014 Visit Plan: Hypothyroidism - pt with chronic hypothyroidism, continue with current medication, will monitor pt to signs or symptoms of lack of adequate supplementation. Pt is to continue with current dose of medication unless directed otherwise. Check labs at regular intervals wither q 3 months or q 6 months based on previous levels of control. 08/26/2014 Appointment: Elina Alvarado WPtel: [address] [place], [place] [phone] Follow up 08/26/2014 Patient Education: Patient Medication [...] with screening. 04/23/2014 Appointment: Elina Alvarado WPtel: [facility]5 [facility] Sick 04/23/2014 Patient Education: Patient Medication Summary Completed 04/23/2014 Care Plan: Referral Order SNOMED-CT : [id number] Ordered 04/23/2014 Appointment: Nurse Visit 04/15/2014 Patient Education: Patient Medication Summary Completed 04/15/2014 Appointment: Elina Alvarado WPtel: [facility]5 [facility] [place] Injection 02/11/2014 Patient Education: Patient [...] treatment. 12/05/2013 Appointment: Elina Alvarado WPtel: [phone] [facility] Follow up 12/05/2013 Patient Education: Patient [...] medications. 11/05/2013 Appointment: Elina Alvarado WPtel: [phone] [facility] Follow up 11/05/2013 Patient Education: Patient [...] control. 10/15/2013 Appointment: Elina Alvarado WPtel: [phone] [facility] [facility] 10/15/2013 Patient Education: Patient [...] surrogate. 09/30/2013 Appointment: Elina Alvarado WPtel: [phone] [facility] [facility] - Initial Preventive Physical Exam 09/30/2013 Patient Education: Patient Medication Summary Completed 09/30/2013 Appointment: Elina Alvarado WPtel: [phone] [facility] [facility] - Initial Preventive Physical Exam [...] use. 03/13/2013 Appointment: Elina Alvarado WPtel: [phone] [facility] Follow up 03/13/2013 Patient Education: Patient [...] medications. 10/04/2012 Appointment: El[facility] Alvarado WPtel: [phone] [facility] Follow up 10/04/2012 Patient Education: Patient [...] attacks. 08/22/2011 Appointment: Elina Alvarado WPtel: [phone] [facility] Other 08/22/2011 Patient Education: Patient Medication Summary Completed 08/22/2011 Visit Plan: check labs appointment with dr ambrocio chest xray, echocardiogram thyroid ultrasound if the chest pain becomes acute, worsens, or does not go away, go to the emergency room HYPERLIPIDEMIA - CONTINUE WITH CURRENT TREATMENT. DISCUSSED DIET CHANGES, NEED LOW FAT DIET. HYPOTHYROIDISM - CONTINUE WITH CURRENT MEDICATIONS, CHE THYROID ULTRASOUND 06/17/2011 Appointment: Elina Alvarado WPtel: [phone] [facility] Other 06/17/2011 Patient Education: Patient Medication Summary Completed 06/17/2011 Referral: Raimundo Brandt WPtel: Referral Appointment Requested [facility] Referral Initiated Referral: Dr. Phelps WPtel: Referral [...] and to maintain independece in the home. Ipnqctdeoq-mgzhlnpphcmt-krpocy to wellbutrin Pneumonia 13 administered today in [...] and to maintain independece in the home. Posysxkbaw-jtdtrnpflhuy-unvncs to wellbutrin Pneumonia 13 administered today in [...] above medications. Patient verbalized understanding of plan. keflex-salazarlons . URI - Pt advised to increase [...]
--- OUTSIDE RECORDS SUMMARY | 2018-12-27 10:03 | XMS REPORT | CCD ---
Author Author [facility] Organization [facility] Address [address] [place] [address] Phone Care Team Providers Care Stonecutter Name Role Phone PP Unavailable CCM Unavailable Summary Purpose Interface Exchange Insurance Providers Payer name Policy type / Coverage type Covered libertarian ID Effective Begin Date Effective End Date WPS Medicare Part B [id number] 2018 Unknown [facility] [id number] 2018 Unknown Family history Sister Diagnosis Age [...] Description Effective Dates Tobacco history SNOMED CT: 8038426 Former smoker quit 2 years ago, social smoker, 1 pack per month 200709/30/2013 Employment Unknown 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 Marital status Unknown 06/17/[address]: 040271 Currently drinks alcohol 2 beers/week 06/17/2011 Has [...] ICD-9: 788.1 ICD-10: R30.0 Active 05/07/2018 Unknown Encounter for immunization ICD-9: V04.81 ICD-10: [...] 02/16/2017 Unknown Pelvic and perineal pain ICD-9: [id number] ICD-10: R10.2 Active 02/16/2017 Unknown Hypothyroidism, unspecified [...] Dysuria ICD-9: 788.1 ICD-10: R30.0 05/07/2018 Active Encounter for immunization ICD-9: V04.81 ICD-10: [...] 02/16/2017 Active Pelvic and perineal pain ICD-9: [id number] ICD-10: R10.2 02/16/2017 Active Hypothyroidism, unspecified ICD-9: [...] Start Date Stop Date Status Fill Instructions Lipitor 10 mg tablet RxNorm: 775846 TAKE ONE TABLET BY MOUTH EVERY DAY 06/06/2018 05/31/2019 Active Lexapro 20 mg tablet RxNorm: 124043 TAKE ONE TABLET BY MOUTH DAILY 05/08/2018 12/03/2018 Active Synthroid 100 mcg tablet RxNorm: 532548 TAKE ONE TABLET BY MOUTH EVERY OTHER DAY 04/10/2018 10/06/2018 Active Synthroid 100 mcg tablet RxNorm: 856383 1 Tablet(s) PO every other day 12/11/2017 04/09/2018 Inactive QOD -alternate with 112mcg DISPENSE BRAND NAME Synthroid 112 mcg tablet RxNorm: 135558 1 Tablet(s) every other day 11/28/2017 03/27/2018 Inactive QOD alternate with 100mcg Synthroid 100 mcg tablet RxNorm: 682402 1 Tablet(s) PO every other day 11/28/2017 12/10/2017 Inactive QOD -alternate with 112mcg DISPENSE BRAND NAME Synthroid 100 mcg tablet RxNorm: 883097 1 Tablet(s) PO every other day 11/28/2017 11/27/2017 Inactive QOD -alternate with 112mcg Xanax 0.5 mg tablet RxNorm: 959308 1 Tablet(s) PO QID as needed anxiety 11/14/2017 01/12/2018 Inactive Lexapro 20 mg tablet RxNorm: 248111 TAKE ONE TABLET BY MOUTH DAILY 11/13/2017 05/07/2018 Inactive Xanax 0.5 mg tablet RxNorm: 140449 1 Tablet(s) PO QID as needed anxiety 09/11/2017 11/08/2017 Inactive Tamiflu 75 mg capsule RxNorm: 760962 1 Capsule(s) PO BID 08/29/2017 09/02/2017 Inactive Synthroid 112 mcg tablet RxNorm: 168456 1 Tablet(s) daily 08/14/2017 11/27/2017 Inactive fyi - medication changed, refill x 6 - #30 pills Synthroid 112 mcg tablet RxNorm: 024343 1 Tablet(s) daily 06/13/2017 08/13/2017 Inactive fyi - medication changed, refill x 6 - #30 pills Lexapro 20 mg tablet RxNorm: 385740 TAKE ONE TABLET BY MOUTH DAILY 06/09/2017 11/05/2017 Inactive Synthroid 112 mcg tablet RxNorm: 106775 TAKE 1 TABLET BY MOUTH DAILY EXCEPT TAKE 1/2 TABLET ON MONDAY, MONDAY, AND Monday05/22/2017 06/12/2017 Inactive Lipitor 10 mg tablet RxNorm: 530771 TAKE ONE TABLET BY MOUTH EVERY DAY 03/08/2017 05/31/2018 Inactive Flagyl 500 mg tablet RxNorm: 370413 1 Tablet(s) PO TID 02/16/2017 02/22/2017 Inactive Xanax 0.5 mg tablet RxNorm: 773845 1 Tablet(s) PO QID as needed anxiety 12/23/2016 03/21/2017 Inactive Synthroid 112 mcg tablet RxNorm: 013601 TAKE 1 TABLET BY MOUTH DAILY EXCEPT FOR TAKE 1/2 TABLET ON MONDAY, MONDAY, AND Monday12/23/2016 04/13/2017 Inactive Lexapro 20 mg tablet RxNorm: 283970 TAKE ONE TABLET BY MOUTH DAILY 11/29/2016 05/27/2017 Inactive Zithromax Z-Que 250 mg tablet RxNorm: 768775 1 Tablet(s) PO UD 09/05/2016 09/09/2016 Inactive zpack Kenalog 40 mg/mL suspension for injection RxNorm: 0142971 1 Milliliter(s) Inj 09/05/2016 09/05/2016 Inactive Lipitor 10 mg tablet RxNorm: 823031 TAKE ONE TABLET BY MOUTH EVERY DAY 08/30/2016 02/25/2017 Inactive Ativan 1 mg tablet RxNorm: 525742 1 Tablet(s) PO Q6 PRN as needed TAKE ONE TABLET BY MOUTH THREE TIMES A DAY OR EVERY 6 HOURS NEEDED FOR ANXIETY 08/30/2016 12/22/2016 Inactive Synthroid 112 mcg tablet RxNorm: 591285 1 Tablet(s) PO daily except one-half tab on /Sat 08/23/2016 12/12/2016 Inactive will refill when needed Lexapro 20 mg tablet RxNorm: 637239 TAKE ONE TABLET BY MOUTH DAILY 08/02/2016 11/28/2016 Inactive Synthroid 112 mcg tablet RxNorm: 803907 1 Tablet(s) PO daily except 1/2 tab mon and sat 05/25/2016 08/22/2016 Inactive will refill when needed Xanax 0.5 mg tablet RxNorm: 718137 1 Tablet(s) PO QID as needed anxiety 05/10/2016 08/29/2016 Inactive Lexapro 20 mg tablet RxNorm: 097788 1 Tablet(s) PO daily 05/03/2016 07/31/2016 Inactive 1/2 tab x 1 week then increase to a full pill daily buspirone 5 mg tablet RxNorm: 591977 TAKE ONE-HALF TABLET BY MOUTH TWICE A DAY 03/15/2016 05/02/2016 Inactive Synthroid 112 mcg tablet RxNorm: 716892 1 Tablet(s) PO daily 02/25/2016 05/24/2016 Inactive Ativan 1 mg tablet RxNorm: 973748 Tablet(s) TAKE ONE TABLET BY MOUTH THREE TIMES A DAY OR EVERY 6 HOURS NEEDED FOR ANXIETY 02/04/2016 05/08/2016 Inactive Synthroid 125 mcg tablet RxNorm: 116328 TAKE ONE TABLET BY MOUTH TWICE WEEKLY 01/11/2016 02/24/2016 Inactive Synthroid 112 mcg tablet RxNorm: 093385 TAKE ONE TABLET BY MOUTH FIVE DAYS A WEEK 01/11/2016 02/24/2016 Inactive Wellbutrin 75 mg tablet RxNorm: 254183 TAKE ONE TABLET BY MOUTH TWICE A DAY 01/11/2016 05/02/2016 Inactive Ativan 1 mg tablet RxNorm: 477150 TAKE ONE TABLET BY MOUTH THREE TIMES A DAY OR EVERY 6 HOURS NEEDED 12/03/2015 12/27/2015 Inactive Lipitor 10 mg tablet RxNorm: 197752 TAKE ONE TABLET BY MOUTH EVERY DAY 12/03/2015 08/28/2016 Inactive Ativan 1 mg tablet RxNorm: 826169 Tablet(s) TAKE ONE TABLET BY MOUTH THREE TIMES A DAY AND TAKE ONE TABLET BY MOUTH EVERY 6 HOURS NEEDED FOR ANXIETY 12/03/2015 12/02/2015 Inactive (Response to an electronic controlled substance refill request - RxReferenceNumber: [id number]) Wellbutrin 75 mg tablet RxNorm: 513824 1 Tablet(s) PO BID 11/13/2015 01/10/2016 Inactive Ativan 1 mg tablet RxNorm: 693063 Tablet(s) TAKE ONE TABLET BY MOUTH THREE TIMES A DAY AND TAKE ONE TABLET BY MOUTH EVERY 6 HOURS NEEDED FOR ANXIETY 09/23/2015 10/30/2015 Inactive (Response to an electronic controlled substance refill request - RxReferenceNumber: [id number]) buspirone 5 mg tablet RxNorm: 409251 TAKE ONE-HALF TABLET BY MOUTH TWICE A DAY 08/18/2015 03/01/2016 Inactive ceftriaxone 500 mg solution for injection RxNorm: 0350587 Inj 07/23/2015 07/23/2015 Inactive Zithromax Z-Que 250 mg tablet RxNorm: 676180 1 Tablet(s) PO UD 07/23/2015 07/27/2015 Inactive ZPACK buspirone 5 mg tablet RxNorm: 553630 1 Tablet(s) PO daily 07/06/2015 10/03/2015 Inactive buspirone 5 mg tablet RxNorm: 912712 1/2 Tablet(s) PO BID 05/26/2015 07/05/2015 Inactive Lipitor 10 mg tablet RxNorm: 248113 TAKE ONE TABLET BY MOUTH EVERY DAY 04/23/2015 10/19/2015 Inactive Ativan 1 mg tablet RxNorm: 789368 Tablet(s) TAKE ONE TABLET BY MOUTH THREE TIMES A DAY AND TAKE ONE TABLET BY MOUTH EVERY 6 HOURS NEEDED FOR ANXIETY 02/23/2015 04/01/2015 Inactive (Response to an electronic controlled substance refill request - RxReferenceNumber: [id number]) Synthroid 125 mcg tablet RxNorm: 680131 1 Tablet(s) PO UD twice weekly 12/10/2014 06/07/2015 Inactive Synthroid 112 mcg tablet RxNorm: 436270 1 Tablet(s) PO UD TAKE ONE TABLET BY MOUTH 5 days a week 12/10/2014 12/04/2015 Inactive Lexapro 20 mg tablet RxNorm: 614420 1 Tablet(s) PO daily 11/26/2014 11/12/2015 Inactive Lipitor 10 mg tablet RxNorm: 287403 TAKE ONE TABLET BY MOUTH EVERY DAY 10/21/2014 04/18/2015 Inactive amoxicillin 500 mg capsule RxNorm: 620478 1 Capsule(s) PO TID 10/15/2014 10/21/2014 Inactive take probiotic BID x 7 days during abt period amoxicillin 500 mg capsule RxNorm: 885263 1 Capsule(s) PO TID 10/15/2014 10/14/2014 Inactive take probiotic BID x 7 days during abt period Ativan 1 mg tablet RxNorm: 418362 TAKE ONE TABLET BY MOUTH THREE TIMES A DAY AND TAKE ONE TABLET BY MOUTH EVERY 6 HOURS NEEDED FOR ANXIETY 08/21/2014 09/28/2014 Inactive (Response to an electronic controlled substance refill request - RxReferenceNumber: [id number]) Ativan 1 mg tablet RxNorm: 972166 1 Tablet(s) PO tid and Q6 PRN as needed 08/18/2014 08/21/2014 Inactive doxycycline hyclate 100 mg tablet RxNorm: 606645 1 Tablet(s) PO BID 04/23/2014 05/25/2015 Inactive prednisone 10 mg tablets in a dose pack RxNorm: 367081 1 Tablet(s) PO 02/14/2014 05/25/2015 Inactive Kenalog 40 mg/mL suspension for injection RxNorm: 7894910 1 Milliliter(s) Inj 02/11/2014 02/11/2014 Inactive Keflex 500 mg capsule RxNorm: 862556 1 Capsule(s) PO TID 01/21/2014 01/27/2014 Inactive Kenalog 40 mg/mL suspension for injection RxNorm: 5564523 Milliliter(s) Inj 01/21/2014 01/21/2014 Inactive Synthroid 112 mcg tablet RxNorm: 757521 1 Tablet(s) PO daily TAKE ONE TABLET BY MOUTH EVERY DAY 12/05/2013 11/29/2014 Inactive Ativan 1 mg tablet RxNorm: 970551 1 Tablet(s) PO Q6 PRN 11/05/2013 02/02/2014 Inactive Lexapro 20 mg tablet RxNorm: 380862 1 Tablet(s) PO daily 11/05/2013 11/04/2013 Inactive Lexapro 20 mg tablet RxNorm: 113178 1 Tablet(s) PO daily 11/05/2013 10/30/2014 Inactive Lipitor 10 mg tablet RxNorm: 030533 1 Tablet(s) PO QPM TAKE ONE TABLET BY MOUTH EVERY DAY 09/30/2013 10/20/2014 Inactive Lexapro 20 mg tablet RxNorm: 781084 1 Tablet(s) PO daily 09/30/2013 11/04/2013 Inactive Synthroid 125 mcg tablet RxNorm: 716041 1 Tablet(s) PO daily 09/10/2013 12/04/2013 Inactive Synthroid 100 mcg tablet RxNorm: 858910 1 Tablet(s) PO daily TAKE ONE TABLET BY MOUTH EVERY DAY 09/06/2013 09/09/2013 Inactive Lipitor 10 mg tablet RxNorm: 102285 Tablet(s) PO TAKE ONE TABLET BY MOUTH EVERY DAY 08/15/2013 09/29/2013 Inactive Synthroid 100 mcg tablet RxNorm: 884089 1 Tablet(s) PO daily TAKE ONE TABLET BY MOUTH EVERY DAY 04/26/2013 09/05/2013 Inactive Ativan 1 mg tablet RxNorm: 313428 1 Tablet(s) PO Q6 PRN 03/13/2013 No Stop Date Active Synthroid 100 mcg tablet RxNorm: 941528 1 Tablet(s) PO daily TAKE ONE TABLET BY MOUTH EVERY DAY 03/13/2013 04/25/2013 Inactive Lexapro 20 mg tablet RxNorm: 351713 1/2 Tablet(s) PO BID 03/13/2013 09/29/2013 Inactive Synthroid 112 mcg tablet RxNorm: 116084 Tablet(s) PO TAKE ONE TABLET BY MOUTH EVERY DAY 01/08/2013 03/12/2013 Inactive Lexapro 20 mg tablet RxNorm: 314810 Tablet(s) PO TAKE 1/2 TABLET EVERY MORNING AND TAKE ONE TABLET BY MOUTH AT BEDTIME 10/18/2012 03/12/2013 Inactive Lipitor 20 mg tablet RxNorm: 975988 1/2 Tablet(s) PO daily 08/20/2012 02/04/2013 Inactive Lipitor 10 mg tablet RxNorm: 603937 1 Tablet(s) PO daily 05/23/2012 08/19/2012 Inactive Synthroid 112 mcg tablet RxNorm: 849211 1 Tablet(s) PO daily 12/16/2011 01/07/2013 Inactive Synthroid 112 mcg Tab RxNorm: 756122 1 Tablet(s) PO daily 12/16/2011 12/15/2011 Inactive Lipitor 10 mg tablet RxNorm: 554282 1 Tablet(s) PO daily 12/15/2011 05/22/2012 Inactive Synthroid 112 mcg Tab RxNorm: 963231 1 Tablet(s) PO every other day 11/09/2011 12/15/2011 Inactive every other day Synthroid 112 mcg Tab RxNorm: 887953 1 Tablet(s) PO every other day 10/21/2011 11/08/2011 Inactive every other day Synthroid 125 mcg Tab RxNorm: 060277 1 Tablet(s) PO every other day 10/21/2011 12/16/2011 Inactive every other day Lexapro 20 mg tablet RxNorm: 116878 1.5 Tablet(s) PO daily 1/2 pill in AM and 1 pill at bedtime 09/22/2011 04/18/2012 Inactive 1/2 q am 1 q hs diazepam 5 mg Tab RxNorm: 681690 1 Tablet(s) PO daily 1 tab bid prn 09/21/2011 05/17/2012 Inactive Lexapro 20 mg Tab RxNorm: 475937 1.5 Tablet(s) PO daily 1/2 pill in AM and 1 pill at bedtime 08/22/2011 09/21/2011 Inactive diazepam 5 mg Tab RxNorm: 947841 1 Tablet(s) PO daily 1 tab bid prn 06/20/2011 09/20/2011 Inactive diazepam 5 mg Tab RxNorm: 698192 1 Tablet(s) PO daily 1 tab bid prn 06/20/2011 06/19/2011 Inactive diazepam 5 mg Tab RxNorm: 453877 1 Tablet(s) PO daily 1 tab bid prn 06/17/2011 06/19/2011 Inactive Lipitor 10 mg Tab RxNorm: 794452 1 Tablet(s) PO daily 05/31/2011 11/26/2011 Inactive diazepam 5 mg Tab RxNorm: 472484 1 Tablet(s) PO BID 1 tab bid prn 04/21/2011 05/20/2011 Inactive Calcium 600 + D(3) Oral RxNorm: Oral No Start Date Active Menest 0.625 mg Tab RxNorm: 625702 1 Tablet(s) PO daily No Start Date 06/16/2011 Inactive Synthroid 125 mcg tablet RxNorm: 264662 Tablet(s) PO No Start Date 09/09/2013 Inactive Ativan 1 mg tablet RxNorm: 459379 1 Tablet(s) PO Q6 PRN No Start Date 08/21/2011 Inactive aspirin 81 mg Tab, Delayed Release RxNorm: 2054577 1 Tablet(s) PO daily No Start Date 09/29/2013 Inactive Lexapro 10 mg Tab RxNorm: 424688 1 Tablet(s) PO daily No Start Date 08/22/2011 Inactive prednisone 10 mg tablets in a dose pack RxNorm: 335506 1 Tablet(s) PO No Start Date 02/13/2014 Inactive Synthroid 112 mcg Tab RxNorm: 209981 Tablet(s) PO tu/th/sat/sun No Start Date 10/20/2011 Inactive lorazepam 1 mg Tab RxNorm: 378038 Tablet(s) PO Q6 PRN No Start Date 11/04/2013 Inactive Lipitor 20 mg tablet RxNorm: 477442 1/2 Tablet(s) PO daily No Start Date 08/20/2012 Inactive Vitamin D2 oral RxNorm: oral No Start Date 09/29/2013 Inactive Synthroid 125 mcg Tab RxNorm: 169684 1 Tablet(s) PO No Start Date 10/20/2011 Inactive synthroid 112 mcg mon sat sun Medication Administered Medication Codes Instructions Start Date Status Kenalog 40 mg/mL suspension for injection RxNorm: 5081064 1Milliliter 09/05/2016 No longer Active ceftriaxone 500 mg solution for injection RxNorm: 1664655 07/23/2015 No longer Active Kenalog 40 mg/mL suspension for injection RxNorm: 1321164 1Milliliter 02/11/2014 No longer Active Kenalog 40 mg/mL suspension for injection RxNorm: 2836589 Milliliter 01/21/2014 No longer Active Immunizations Vaccine Codes Date Status Influenza CVX: 141 04/24/2018 completed Influenza CVX: 141 06/07/2017 completed Pneumococcal (Adult) CVX: 133 11/13/2015 completed Influenza CVX: 141 04/15/2014 completed Pneumococcal (Adult) CVX: 33 04/15/2014 completed PPD Unknown 10/10/2013 completed Influenza CVX: 141 09/30/2013 completed Assessments Condition Codes Effective Dates Dysuria ICD-10: R30.0 ICD-9: 788.1 05/07/2018 Encounter [...] Pelvic and perineal pain ICD-10: R10.2 ICD-9: [id number] 02/16/2017 Acute vaginitis ICD-10: N76.0 ICD-9: 623.5 02/16/2017 Other specified hypothyroidism ICD-10: E03.8 ICD-9: 244.8 11/17/2016 Generalized anxiety disorder ICD-10: F41.1 ICD-9: 313.0 10/12/2016 Acute upper respiratory infection, unspecified ICD-10: J06.9 ICD-9: 465.9 09/05/2016 Cough ICD-10: R05 ICD-9: 786.2 09/05/2016 Encounter for general adult medical examination [...] ICD-9: V70.0 09/30/2013 HYPERLIPIDEMIA ICD-9: 272.4 03/13/2013 POSTSURGICAL HYPOTHYROIDISM ICD-9: 244.0 06/17/2011 CHEST PAIN NEC ICD-9: 786.59 06/17/2011 Reason For Visit Reason For Visit Effective Dates Notes dysuria 05/07/2018 vaccination against influenza 04/24/2018 tinnitus [...] Item Item Code Result Date Tsh Ord6 TSH (3rd IS) 0.99 uIU/mL 03/12/2018 T4 Ord4 T4 11.1 ug/dL 03/12/2018 Lipid Ord30 CHOL 160 mg/dL 11/23/2017 Lipid Ord30 HDL 49.0 mg/dl 11/23/2017 Lipid Ord30 TRIG 133 mg/dL 11/23/2017 Lipid Ord30 LDL 84 mg/dL 11/23/2017 Lipid Ord30 C/HDL 3.3 Ratio 11/23/2017 Tsh Ord6 TSH (3rd IS) 0.17 uIU/mL 11/23/2017 Cbc With Differential Ord2 WBC 6.32 K/ul 11/23/2017 Cbc With Differential Ord2 RBC 4.45 M/ul 11/23/2017 Cbc With Differential Ord2 HGB 13.2 g/dl 11/23/2017 Cbc With Differential Ord2 Neut% 59.4 % 11/23/2017 Cbc With Differential Ord2 HCT 39.5 % 11/23/2017 Cbc With Differential Ord2 Lymph% 28.0 % 11/23/2017 Cbc With Differential Ord2 MCV 88.8 fl 11/23/2017 Cbc With Differential Ord2 [place]% 9.0 % 11/23/2017 Cbc With Differential Ord2 [...] 1.77 K/ul 11/23/2017 Cbc With Differential Ord2 [place] ABS# 0.6 K/ul 11/23/2017 Cbc With Differential Ord2 Eos ABS# 0.2 K/ul 11/23/2017 Cbc With Differential Ord2 Baso ABS# 0.0 K/ul 11/23/2017 Free T4 Joa572 FREE T4 1.10 ng/dL 11/23/2017 Comp Metabolic Syy022 NA 142 mEq/L 11/23/2017 Comp Metabolic Pzq329 K 4.4 mEq/L 11/23/2017 Comp Metabolic Kjh953 CL 109 mEq/L 11/23/2017 Comp Metabolic Fal576 CO2 28.0 mEq/L 11/23/2017 Comp Metabolic Dpu033 ANION GAP 9 11/23/2017 Comp Metabolic Zlw411 GLUCOSE 106 mg/dL 11/23/2017 Comp Metabolic Jnb877 Creat 0.9 mg/dL 11/23/2017 Comp Metabolic Nnp154 eGFR 68 ml/min/1.73m2 11/23/2017 Comp Metabolic Tit181 BUN 17 mg/dL 11/23/2017 Comp Metabolic Osk138 B/C Ratio 19.3 Ratio 11/23/2017 Comp Metabolic Woz627 CALCIUM 9.0 mg/dL 11/23/2017 Comp Metabolic Hvs172 ALK PHOS 65 U/L 11/23/2017 Comp Metabolic Mdo286 AST(SGOT) 18 U/L 11/23/2017 Comp Metabolic Yxi554 ALT(SGPT) 16 U/L 11/23/2017 Comp Metabolic Ffj176 BILI T 0.5 mg/dL 11/23/2017 Comp Metabolic Tih803 ALBUMIN 4.2 g/dL 11/23/2017 Comp Metabolic Lhh657 TPRO 6.5 g/dL 11/23/2017 Comp Metabolic Dip706 GLOB 2.3 g/dL 11/23/2017 Comp Metabolic Bxl292 A/G Ratio 1.8 Ratio 11/23/2017 Comp Metabolic Srn856 Osmo 285 mOsmo 11/23/2017 Lipid Ord30 CHOL 163 mg/dL 06/07/2017 Lipid Ord30 HDL 52.0 mg/dl 06/07/2017 Lipid Ord30 TRIG 120 mg/dL 06/07/2017 Lipid Ord30 LDL 87 mg/dL 06/07/2017 Lipid Ord30 C/HDL 3.1 Ratio 06/07/2017 Tsh Ord6 hTSH II 4.83 uIU/mL 06/07/2017 Comp Metabolic Nvq826 NA 141 mEq/L 06/07/2017 Comp Metabolic Lgh074 K 4.3 mEq/L 06/07/2017 Comp Metabolic Jwb538 CL 106 mEq/L 06/07/2017 Comp Metabolic Vqj285 CO2 26.0 mEq/L 06/07/2017 Comp Metabolic Yqq644 ANION GAP 13 06/07/2017 Comp Metabolic Rqs355 GLUCOSE 93 mg/dL 06/07/2017 Comp Metabolic Qfv696 Creat 0.9 mg/dL 06/07/2017 Comp Metabolic Hjm737 eGFR 65 ml/min/1.73m2 06/07/2017 Comp Metabolic Kua781 BUN 10 mg/dL 06/07/2017 Comp Metabolic Edk238 B/C Ratio 11.0 Ratio 06/07/2017 Comp Metabolic Njb176 CALCIUM 8.9 mg/dL 06/07/2017 Comp Metabolic Yii429 ALK PHOS 69 U/L 06/07/2017 Comp Metabolic Ctc565 AST(SGOT) 18 U/L 06/07/2017 Comp Metabolic Xsr733 ALT(SGPT) 15 U/L 06/07/2017 Comp Metabolic Xck341 BILI T 0.5 mg/dL 06/07/2017 Comp Metabolic Rov401 ALBUMIN 4.1 g/dL 06/07/2017 Comp Metabolic Ftc456 TPRO 6.5 g/dL 06/07/2017 Comp Metabolic Onn093 GLOB 2.4 g/dL 06/07/2017 Comp Metabolic Hqg446 A/G Ratio 1.7 Ratio 06/07/2017 Comp Metabolic Svk232 Osmo 280 mOsmo 06/07/2017 Free T4 Kuj501 FREE T4 0.92 ng/dL 06/07/2017 Cbc With Differential Ord2 WBC 5.38 K/ul 06/07/2017 Cbc With Differential Ord2 RBC 4.24 M/ul 06/07/2017 Cbc With Differential Ord2 HGB 13.0 g/dl 06/07/2017 Cbc With Differential Ord2 HCT 38.6 % 06/07/2017 Cbc With Differential Ord2 Neut% 56.7 % 06/07/2017 Cbc With Differential Ord2 Lymph% 30.1 % 06/07/2017 Cbc With Differential Ord2 MCV 91.0 fl 06/07/2017 Cbc With Differential Ord2 MCH 30.7 pg 06/07/2017 Cbc With Differential Ord2 [place]% 9.1 % 06/07/2017 Cbc With Differential Ord2 Eos% 3.5 % 06/07/2017 Cbc With Differential Ord2 MCHC 33.7 pg 06/07/2017 Cbc With Differential Ord2 PLT 479 K/ul 06/07/2017 Cbc With Differential Ord2 Baso% 0.6 % 06/07/2017 Cbc With Differential Ord2 RDW 12.9 % 06/07/2017 Cbc With Differential Ord2 Neut ABS# 3.05 K/ul 06/07/2017 Cbc With Differential Ord2 Lymph ABS# 1.62 K/ul 06/07/2017 Cbc With Differential Ord2 [place] ABS# 0.5 K/ul 06/07/2017 Cbc With Differential Ord2 Eos ABS# 0.2 K/ul 06/07/2017 Cbc With Differential Ord2 Baso ABS# 0.0 K/ul 06/07/2017 Tsh Ord6 hTSH II 1.07 uIU/mL 11/17/2016 Free T4 Ora443 FREE T4 1.02 ng/dL 11/17/2016 Lipid Ord30 CHOL 195 mg/dL 10/13/2016 Lipid Ord30 HDL 68.0 mg/dl 10/13/2016 Lipid Ord30 TRIG 69 mg/dL 10/13/2016 Lipid Ord30 LDL 113 mg/dL 10/13/2016 Lipid Ord30 C/HDL 2.9 Ratio 10/13/2016 Comp Metabolic Vvt600 NA 138 mEq/L 10/13/2016 Comp Metabolic Lsi611 K 4.4 mEq/L 10/13/2016 Comp Metabolic Fpm968 CL 102 mEq/L 10/13/2016 Comp Metabolic Tyj034 CO2 29.0 mEq/L 10/13/2016 Comp Metabolic Gui043 ANION GAP 11 10/13/2016 Comp Metabolic Cyn986 GLUCOSE 85 mg/dL 10/13/2016 Comp Metabolic Foe558 Creat 1.0 mg/dL 10/13/2016 Comp Metabolic Kjo421 eGFR 59 ml/min/1.73m2 10/13/2016 Comp Metabolic Gtc823 BUN 21 mg/dL 10/13/2016 Comp Metabolic Pkk632 B/C Ratio 21.2 Ratio 10/13/2016 Comp Metabolic Jhp563 CALCIUM 9.7 mg/dL 10/13/2016 Comp Metabolic Jml316 ALK PHOS 70 U/L 10/13/2016 Comp Metabolic Aad339 AST(SGOT) 17 U/L 10/13/2016 Comp Metabolic Luu696 ALT(SGPT) 14 U/L 10/13/2016 Comp Metabolic Myp189 BILI T 0.9 mg/dL 10/13/2016 Comp Metabolic Jfg381 ALBUMIN 4.4 g/dL 10/13/2016 Comp Metabolic Sma614 TPRO 7.1 g/dL 10/13/2016 Comp Metabolic Iyh110 GLOB 2.7 g/dL 10/13/2016 Comp Metabolic Imd703 A/G Ratio 1.6 Ratio 10/13/2016 Comp Metabolic Iba336 Osmo 278 mOsmo 10/13/2016 Cbc With Differential [...] 29.7 pg 10/13/2016 Cbc With Differential Ord2 [place]% 7.7 % 10/13/2016 Cbc With Differential Ord2 Eos% 1.8 % 10/13/2016 Cbc With Differential Ord2 MCHC 33.2 pg 10/13/2016 Cbc With Differential Ord2 Baso% 0.3 % 10/13/2016 Cbc With Differential Ord2 PLT 521 K/ul 10/13/2016 Cbc With Differential Ord2 RDW 13.9 % 10/13/2016 Cbc With Differential Ord2 Neut ABS# 3.98 K/ul 10/13/2016 Cbc With Differential Ord2 Lymph ABS# 1.43 K/ul 10/13/2016 Cbc With Differential Ord2 [place] ABS# 0.5 K/ul 10/13/2016 Cbc With Differential Ord2 Eos ABS# 0.1 K/ul 10/13/2016 Cbc With Differential Ord2 Baso ABS# 0.0 K/ul 10/13/2016 Tsh Ord6 hTSH II 0.64 uIU/mL 08/17/2016 Free T4 Wtt775 FREE T4 1.31 ng/dL 08/17/2016 Cbc With [...] 85.5 fl 05/10/2016 Cbc With Differential Ord2 MCH 29.1 pg 05/10/2016 Cbc With Differential Ord2 [place]% 8.3 % 05/10/2016 Cbc With Differential Ord2 Eos% 2.9 % 05/10/2016 Cbc With Differential Ord2 MCHC 34.0 pg 05/10/2016 Cbc With Differential Ord2 PLT 457 K/ul 05/10/2016 Cbc With Differential Ord2 Baso% 0.6 % 05/10/2016 Cbc With Differential Ord2 Neut ABS# 4.25 K/ul 05/10/2016 Cbc With Differential Ord2 RDW 13.5 % 05/10/2016 Cbc With Differential Ord2 Lymph ABS# 1.57 K/ul 05/10/2016 Cbc With Differential Ord2 [place] ABS# 0.6 K/ul 05/10/2016 Cbc With Differential Ord2 Eos ABS# 0.2 K/ul 05/10/2016 Cbc With Differential Ord2 Baso ABS# 0.0 K/ul 05/10/2016 Free T4 Aki779 FREE T4 1.49 ng/dL 05/10/2016 Comp Metabolic Qhb027 NA 139 mEq/L 05/10/2016 Comp Metabolic Gsk833 K 4.5 mEq/L 05/10/2016 Comp Metabolic Kxh495 CL 104 mEq/L 05/10/2016 Comp Metabolic Qxv641 CO2 24.0 mEq/L 05/10/2016 Comp Metabolic Pff723 ANION GAP 16 05/10/2016 Comp Metabolic Gbo764 GLUCOSE 87 mg/dL 05/10/2016 Comp Metabolic Zcq521 Creat 0.9 mg/dL 05/10/2016 Comp Metabolic Cyd025 eGFR 71 ml/min/1.73m2 05/10/2016 Comp Metabolic Rnt386 BUN 12 mg/dL 05/10/2016 Comp Metabolic Aan623 B/C Ratio 14.1 Ratio 05/10/2016 Comp Metabolic Xbq807 CALCIUM 9.6 mg/dL 05/10/2016 Comp Metabolic Bdi767 ALK PHOS 89 U/L 05/10/2016 Comp Metabolic Ush211 AST(SGOT) 17 U/L 05/10/2016 Comp Metabolic Szt881 ALT(SGPT) 17 U/L 05/10/2016 Comp Metabolic Rii349 BILI T 0.9 mg/dL 05/10/2016 Comp Metabolic Qza680 ALBUMIN 4.2 g/dL 05/10/2016 Comp Metabolic Pin478 TPRO 6.7 g/dL 05/10/2016 Comp Metabolic Kgq945 GLOB 2.5 g/dL 05/10/2016 Comp Metabolic Uyo175 A/G Ratio 1.7 Ratio 05/10/2016 Comp Metabolic Pdi456 Osmo 277 mOsmo 05/10/2016 Tsh Ord6 hTSH II 0.03 uIU/mL 05/10/2016 Free T4 Ypc016 FREE T4 1.67 ng/dL 02/18/2016 Comp Metabolic Qtc689 NA 138 mEq/L 02/18/2016 Comp Metabolic Iiv971 K 4.5 mEq/L 02/18/2016 Comp Metabolic Zya065 CL 104 mEq/L 02/18/2016 Comp Metabolic Raj162 CO2 26.0 mEq/L 02/18/2016 Comp Metabolic Fiw093 ANION GAP 13 02/18/2016 Comp Metabolic Scj824 GLUCOSE 88 mg/dL 02/18/2016 Comp Metabolic Mdj897 Creat 0.9 mg/dL 02/18/2016 Comp Metabolic Gpj775 eGFR 69 ml/min/1.73m2 02/18/2016 Comp Metabolic Tiq806 BUN 14 mg/dL 02/18/2016 Comp Metabolic Gdk816 B/C Ratio 16.1 Ratio 02/18/2016 Comp Metabolic Dsk985 CALCIUM 9.4 mg/dL 02/18/2016 Comp Metabolic Znc650 ALK PHOS 95 U/L 02/18/2016 Comp Metabolic Tkd386 AST(SGOT) 19 U/L 02/18/2016 Comp Metabolic Cnw627 ALT(SGPT) 18 U/L 02/18/2016 Comp Metabolic Mis080 BILI T 0.7 mg/dL 02/18/2016 Comp Metabolic Ekr890 ALBUMIN 4.4 g/dL 02/18/2016 Comp Metabolic Keq821 TPRO 6.9 g/dL 02/18/2016 Comp Metabolic Ygo121 GLOB 2.5 g/dL 02/18/2016 Comp Metabolic Oqf713 A/G Ratio 1.7 Ratio 02/18/2016 Comp Metabolic Mnb807 Osmo 276 mOsmo 02/18/2016 Cbc With Differential Ord2 WBC 5.74 K/ul 02/18/2016 Cbc With Differential Ord2 RBC 4.91 M/ul 02/18/2016 Cbc With Differential Ord2 HGB 14.2 g/dl 02/18/2016 Cbc With Differential Ord2 Neut% 70.7 % 02/18/2016 Cbc With Differential Ord2 HCT 42.0 % 02/18/2016 Cbc With Differential Ord2 MCV 85.5 fl 02/18/2016 Cbc With Differential Ord2 Lymph% 18.8 % 02/18/2016 Cbc With Differential Ord2 [place]% 10.5 % 02/18/2016 Cbc With Differential Ord2 [...] 1.08 K/ul 02/18/2016 Cbc With Differential Ord2 [place] ABS# 0.6 K/ul 02/18/2016 Cbc With Differential Ord2 Eos ABS# 0.0 K/ul 02/18/2016 Cbc With Differential Ord2 Baso ABS# 0.0 K/ul 02/18/2016 Lipid Ord30 CHOL 163 mg/dL 02/18/2016 Lipid Ord30 HDL 43.0 mg/dl 02/18/2016 Lipid Ord30 TRIG 90 mg/dL 02/18/2016 Lipid Ord30 LDL 102 mg/dL 02/18/2016 Lipid Ord30 C/HDL 3.8 Ratio 02/18/2016 Tsh Ord6 hTSH II 0.06 uIU/mL 02/18/2016 Cbc With Differential Ord2 WBC 5.8 K/uL [...] With Differential Ord2 RDW 14.4 % 06/08/2015 Comp Metabolic Qqv124 NA 136 mEq/L 06/08/2015 Comp Metabolic Mfz226 K 3.9 mEq/L 06/08/2015 Comp Metabolic Gdb537 CL 103 mEq/L 06/08/2015 Comp Metabolic Zbo952 CO2 25.0 mEq/L 06/08/2015 Comp Metabolic Dnk782 ANION GAP 12 06/08/2015 Comp Metabolic Hzn070 GLUCOSE 91 mg/dL 06/08/2015 Comp Metabolic Twn422 Creat 0.9 mg/dL 06/08/2015 Comp Metabolic Cdo809 eGFR 68 ml/min/1.73m2 06/08/2015 Comp Metabolic Qkh776 BUN 10 mg/dL 06/08/2015 Comp Metabolic Lms979 B/C Ratio 11.4 Ratio 06/08/2015 Comp Metabolic Oji447 CALCIUM 9.4 mg/dL 06/08/2015 Comp Metabolic Qgc716 ALK PHOS 88 U/L 06/08/2015 Comp Metabolic Tjo168 AST(SGOT) 20 U/L 06/08/2015 Comp Metabolic Sdl958 ALT(SGPT) 18 U/L 06/08/2015 Comp Metabolic Qjh305 BILI T 0.8 mg/dL 06/08/2015 Comp Metabolic Rwz236 ALBUMIN 4.4 g/dL 06/08/2015 Comp Metabolic Kwt670 TPRO 7.0 g/dL 06/08/2015 Comp Metabolic Nyu841 GLOB 2.6 g/dL 06/08/2015 Comp Metabolic Bma274 A/G Ratio 1.7 Ratio 06/08/2015 Comp Metabolic Dpl865 Osmo 271 mOsmo 06/08/2015 Tsh Ord6 hTSH II 1.20 uIU/mL 06/08/2015 LYME EIA 5631742 LYME EIA 0.24 04/25/2014 TULAREM AB [id number] TULAREM AB <1:20 04/24/2014 RMSF IFA 1375044 IGG RMSF <1:16 04/24/2014 RMSF IFA 1499224 IGM RMSF <1:10 04/24/2014 E CHAFF AB [id number] IGG E CHFF <1:16 04/24/2014 E CHAFF AB [id number] IGM E CHFF <1:10 04/24/2014 ICT OCCULT [id number] ICT OCCULT NEG 10/11/2013 Review of Systems System Result Effective Dates Constitutional recent illness 05/07/2018 Constitutional No anorexia [...] Effective Dates Notes Full Exam - General 1995 Constitutional general appearance Overall: well developed 05/07/2018 [...] accomodation 05/16/2014 None Full Exam - General 1995 [...] Codes Date URINALYSIS NONAUTO W/O SCOPE CPT-4: 13263 05/07/2018 ADMIN INFLUENZA VIRUS VAC CPT-4: G0008 04/24/2018 FLU VACC PRSV FREE INC ANTIG CPT-4: 67735 04/24/2018 PPPS, SUBSEQ VISIT CPT- 4: G0439 11/28/2017 ADMIN INFLUENZA VIRUS VAC CPT-4: G0008 06/07/2017 FLU VACC PRSV FREE INC ANTIG CPT-4: 08081 06/07/2017 PPPS, SUBSEQ VISIT CPT- 4: G0439 11/17/2016 TRIAMCINOLONE ACET INJ NOS CPT-4: J3301 09/05/2016 PPPS, SUBSEQ VISIT CPT- 4: G0439 11/13/2015 PNEUMOCOCCAL VACC 13 STEPHANIE IM Formatting Model/CDA Sections, Assigned to/Lila Colon SNOMED CT: 85488854 CPT-4: 53214Dgsfuvh 11/13/2015 ADMIN PNEUMOCOCCAL VACCINE SNOMED CT: 24247736 CPT-4: G0009 11/13/2015 ROCEPHIN, PER 250 MG CPT- 4: J0696 07/23/2015 URINALYSIS NONAUTO W/O SCOPE CPT-4: 48609 10/10/2014 ROUTINE VENIPUNCTURE CPT- 4: 85298 04/23/2014 Pneumococcal Polysaccharide Vaccine, 23-Valent, Ad CPT-4: 90528 04/15/2014 ADMIN INFLUENZA VIRUS VAC CPT-4: G0008 04/15/2014 FLU VAC NO PRSV 4 STEPHANIE 3 YRS+ CPT-4: 18186 04/15/2014 ADMIN PNEUMOCOCCAL VACCINE SNOMED CT: 55597524 CPT-4: G0009 04/15/2014 THER/PROPH/DIAG INJ SC/IM CPT-4: 15908 02/11/2014 TRIAMCINOLONE ACET INJ NOS CPT-4: J3301 02/11/2014 TRIAMCINOLONE ACET INJ NOS CPT-4: J3301 01/21/2014 INITIAL PREVENTIVE EXAM CPT-4: G0402 09/30/2013 PRESCRIP TRANSMIT VIA ERX SY CPT-4: G8553 03/13/2013 Vital Signs Date Vital 05/07/2018 Blood Pressure 1: 118/72 Code: 8480-6 BMI: 29.5 Code: 05104-2 Heart Rate 1: 71 bpm Height: 5'5" SpO2: 98% Weight: 177 lbs 02/21/2018 Blood Pressure 1: 120/78 Code: 8480-6 BMI: 29.0 Code: 94408-2 Heart Rate 1: 68 bpm Height: 5'5" SpO2: 96% Weight: 174 lbs 11/28/2017 Blood Pressure 1: 122/98 Code: 8480-6 BMI: 31.0 Code: 11947-5 Heart Rate 1: 89 bpm Height: 5'5" SpO2: 98% Waist Measure (cm): 91 cm Weight: 186 lbs 08/29/2017 Blood Pressure 1: 146/80 Code: 8480-6 BMI: 29.5 Code: 74452-8 Heart Rate 1: 68 bpm Height: 5'5" SpO2: 98% Temperature: 36.6 (C) / 97.8 (F) Weight: 177 lbs 06/13/2017 Blood Pressure 1: 138/76 Code: 8480-6 BMI: 29.6 Code: 67992-0 Heart Rate 1: 63 bpm Height: 5'5" SpO2: 95% Weight: 178 lbs 02/16/2017 Blood Pressure 1: 128/80 Code: 8480-6 BMI: 29.9 Code: 03227-9 Heart Rate 1: 77 bpm Height: 5'5" SpO2: 96% Weight: 179 lbs 8 oz 02/06/2017 Blood Pressure 1: 140/80 Code: 8480-6 BMI: 29.8 Code: 54340-7 Heart Rate 1: 72 bpm Height: 5'5" SpO2: 97% Weight: 179 lbs 11/17/2016 Blood Pressure 1: 130/72 Code: 8480-6 BMI: 29.6 Code: 13122-2 Heart Rate 1: 62 bpm Height: 5'5" SpO2: 98% Waist Measure (cm): 91 cm Weight: 178 lbs 10/12/2016 Blood Pressure 1: 128/78 Code: 8480-6 BMI: 28.5 Code: 47623-3 Heart Rate 1: 62 bpm Height: 5'5" SpO2: 97% Weight: 171 lbs 09/05/2016 Blood Pressure 1: 122/70 Code: 8480-6 BMI: 28.0 Code: 57793-8 Heart Rate 1: 65 bpm Height: 5'5" SpO2: 94% Weight: 168 lbs 06/21/2016 Blood Pressure 1: 120/82 Code: 8480-6 BMI: 28.3 Code: 89745-9 Heart Rate 1: 65 bpm Height: 5'5" SpO2: 97% Weight: 170 lbs 05/24/2016 Blood Pressure 1: 136/80 Code: 8480-6 BMI: 28.1 Code: 72412-0 Heart Rate 1: 71 bpm Height: 5'5" SpO2: 96% Weight: 169 lbs 05/10/2016 Blood Pressure 1: 120/82 Code: 8480-6 BMI: 27.6 Code: 23728-9 Heart Rate 1: 86 bpm Height: 5'5" SpO2: 95% Weight: 166 lbs 05/03/2016 Blood Pressure 1: 124/78 Code: 8480-6 BMI: 28.1 Code: 34578-3 Heart Rate 1: 88 bpm Height: 5'5" SpO2: 97% Weight: 169 lbs 11/13/2015 Blood Pressure 1: 130/60 Code: 8480-6 BMI: 30.0 Code: 98414-1 Heart Rate 1: 7 bpm Height: 5'5" Waist Measure (cm): 97 cm Weight: 180 lbs 07/23/2015 Blood Pressure 1: 124/70 Code: 8480-6 BMI: 29.6 Code: 67014-6 Heart Rate 1: 74 bpm Height: 5'5" SpO2: 96% Temperature: 36.7 (C) / 98.1 (F) Weight: 178 lbs 07/06/2015 Blood Pressure 1: 138/78 Code: 8480-6 BMI: 29.6 Code: 21528-7 Heart Rate 1: 84 bpm Height: 5'5" SpO2: 96% Weight: 178 lbs 05/26/2015 Blood Pressure 1: 122/80 Code: 8480-6 BMI: 29.6 Code: 50342-3 Heart Rate 1: 84 bpm Height: 5'5" Weight: 178 lbs 02/16/2015 Blood Pressure 1: 124/82 Code: 8480-6 BMI: 29.0 Code: 16915-5 Heart Rate 1: 68 bpm Height: 5'5" Weight: 174 lbs 12/10/2014 Blood Pressure 1: 112/64 Code: 8480-6 BMI: 28.6 Code: 60083-8 Heart Rate 1: 80 bpm Height: 5'5" Weight: 172 lbs 10/16/2014 Blood Pressure 1: 128/84 Code: 8480-6 Heart Rate 1: 64 bpm Weight: 172 lbs 10/09/2014 Blood Pressure 1: 136/90 Code: 8480-6 BMI: 28.6 Code: 80683-7 Heart Rate 1: 76 bpm Height: 5'5" Weight: 172 lbs 08/26/2014 Blood Pressure 1: 118/72 Code: 8480-6 BMI: 29.0 Code: 66161-0 Heart Rate 1: 76 bpm Height: 5'5" Weight: 174 lbs 05/16/2014 Blood Pressure 1: 110/72 Code: 8480-6 BMI: 29.0 Code: 43517-4 Height: 5'5" Weight: 174 lbs 04/23/2014 Blood Pressure 1: 124/70 Code: 8480-6 BMI: 29.0 Code: 03813-3 Heart Rate 1: 72 bpm Height: 5'5" Weight: 174 lbs 04/15/2014 Temperature: 36.5 (C) / 97.7 (F) 01/21/2014 Blood Pressure 1: 98/62 Code: 8480-6 BMI: 29.0 Code: 49573- 5 Heart Rate 1: 84 bpm Height: 5'5" Temperature: 37.1 (C) / 98.7 (F) Weight: 174 lbs 12/05/2013 Blood Pressure 1: 138/88 Code: 8480-6 BMI: 29.0 Code: 00029-1 Heart Rate 1: 60 bpm Height: 5'5" Weight: 174 lbs 11/05/2013 Blood Pressure 1: 118/80 Code: 8480-6 BMI: 28.8 Code: 56642-0 Heart Rate 1: 76 bpm Height: 5'5" Weight: 173 lbs 10/15/2013 Blood Pressure 1: 120/78 Code: 8480-6 BMI: 29.1 Code: 62143-0 Heart Rate 1: 88 bpm Height: 5'5" Weight: 175 lbs 09/30/2013 Blood Pressure 1: 112/84 Code: 8480-6 BMI: 29.1 Code: 53027-0 Heart Rate 1: 68 bpm Height: 5'5" Weight: 175 lbs 03/13/2013 Blood Pressure 1: 112/84 Code: 8480-6 BMI: 28.6 Code: 51369-3 Heart Rate 1: 64 bpm Height: 5'5" Weight: 173 lbs 10/04/2012 Blood Pressure 1: 120/72 Code: 8480-6 BMI: 28.0 Code: 97357-5 Heart Rate 1: 64 bpm Height: 5'5" Weight: 169 lbs 08/22/2011 Blood Pressure 1: 134/84 Code: 8480-6 BMI: 27.5 Code: 58636-1 Heart Rate 1: 68 bpm Height: 5'5" Respiratory Rate: 16 bpm Weight: 166 lbs 8 oz 06/17/2011 Blood Pressure 1: 120/76 Code: 8480-6 BMI: 27.0 Code: 15901-4 Heart Rate 1: 58 bpm Height: 5'5" Respiratory Rate: 16 bpm Weight: 163 lbs Functional Status No Functional Status data History of Present Illness Symptom Name Status Result Effective Date Notes dysuria Quality intermittent 05/07/2018 None dysuria Onset [...] data Encounters Encounter Performer Location Codes Date ([id number] EST. PATIENT, LEVEL II Diagnosis: Dysuria[ICD10: R30.0] Suma Alvarado MD, [facility] CPT-4: 84106 05/07/2018 61085 EST. PATIENT, LEVEL IV Diagnosis: Tinnitus, bilateral[ICD10: H93.13] Diagnosis: Other allergic rhinitis[ICD10: J30.89] Gina Alvarado MD, [facility] CPT- 4: 48746 02/21/2018 12546 EST. PATIENT, LEVEL III Diagnosis: Acute laryngopharyngitis[ICD10: J06.0] Diagnosis: Other allergic rhinitis[ICD10: J30.89] Gina Alvarado MD, [facility] CPT- 4: 32382 08/29/2017 [id number]) 93915 EST. PATIENT, LEVEL IV Diagnosis: Postprocedural hypothyroidism[ICD10: E89.0] Diagnosis: Major depressive disorder, recurrent, moderate[ICD10: F33.1] Diagnosis: Generalized anxiety disorder[ICD10: F41.1] Elina Alvarado MD, [facility] CPT-4: 30898 06/13/2017 [id number]) 39947 EST. PATIENT, LEVEL IV Diagnosis: Pelvic and perineal pain[ICD10: R10.2] Diagnosis: Acute vaginitis[ICD10: N76.0] Suma Alvarado MD, [facility] CPT-4: 35208 02/16/2017 [id number]) 97629 EST. PATIENT, LEVEL III Diagnosis: Postprocedural hypothyroidism[ICD10: E89.0] Diagnosis: Major depressive disorder, recurrent, moderate[ICD10: F33.1] Elina Alvarado MD, [facility] CPT-4: 06493 02/06/2017 ([id number]) 65196 EST. PATIENT, LEVEL III Diagnosis: Generalized anxiety disorder[ICD10: F41.1] Elina Alvarado MD, [facility] CPT-4: 21761 10/12/2016 ([id number]) 18942 EST. PATIENT, LEVEL III Diagnosis: Cough[ICD10: R05] Diagnosis: Acute upper respiratory infection, unspecified[ICD10: J06.9] Suma Alvarado MD, [facility] CPT-4: 81265 09/05/2016 ([id number]) 41085 EST. PATIENT, LEVEL III Diagnosis: Generalized anxiety disorder[ICD10: F41.1] Diagnosis: Major depressive disorder, recurrent, moderate[ICD10: F33.1] Diagnosis: Postprocedural hypothyroidism[ICD10: E89.0] Elina Alvarado MD, [facility] CPT-4: 30683 06/21/2016 ([id number]) 32215 EST. PATIENT, LEVEL III Diagnosis: Major depressive disorder, recurrent, moderate[ICD10: F33.1] Elina Alvarado MD, [facility] CPT-4: 45960 05/24/2016 ([id number]) 75880 EST. PATIENT, LEVEL III Diagnosis: Major depressive disorder, recurrent, moderate[ICD10: F33.1] Elina Alvarado MD, [facility] CPT-4: 26090 05/10/2016 ([id number]) 92749 EST. PATIENT, LEVEL III Diagnosis: Generalized anxiety disorder[ICD10: F41.1] Diagnosis: Major depressive disorder, recurrent, moderate[ICD10: F33.1] Suma Alvarado MD, [facility] CPT-4: 08716 05/03/2016 ([id number]) 91524 EST. PATIENT, LEVEL III Diagnosis: Cough[ICD10: R05] Diagnosis: Acute upper respiratory infection, unspecified[ICD10: J06.9] Suma Alvarado MD, [facility] CPT-4: 46446 07/23/2015 ([id number]) 70765 EST. PATIENT, LEVEL III Diagnosis: Hypothyroidism, unspecified[ICD10: E03.9] Diagnosis: Generalized anxiety disorder[ICD10: F41.1] Diagnosis: Other depressive episodes[ICD10: F32.8] Elina Alvarado MD, [facility] CPT-4: 76238 07/06/2015 ([id number]) 45394 EST. PATIENT, LEVEL IV Diagnosis: Generalized anxiety disorder[ICD10: F41.1] Diagnosis: Major depressive disorder, recurrent, unspecified[ICD10: F33.9] Elina Alvarado MD, [facility] CPT-4: 57058 05/26/2015 ([id number]) 26631 EST. PATIENT, LEVEL II Diagnosis: 2Nd degree burn of multiple fingers of right hand not including thumb[ICD9: 944.23] Suma Alvarado MD, [facility] CPT-4: 71540 02/16/2015 ([id number]) 87267 EST. PATIENT, LEVEL IV Diagnosis: Hammertoe[ICD9: 735.4] Diagnosis: Foot pain[ICD9: 729.5] Diagnosis: HYPOTHYROIDISM[ICD9: 244.9] Elina Alvarado MD, [facility] CPT-4: 34210 12/10/2014 ([id number]) 46694 EST. PATIENT, LEVEL III Diagnosis: Urinary incontinence[ICD9: 788.30] Diagnosis: Pelvic pain in female[ICD9: 625.9] Elina Alvarado MD, [facility] CPT- 4: 83172 10/16/2014 ([id number]) 34764 EST. PATIENT, LEVEL III Diagnosis: Urinary incontinence[ICD9: 788.30] Diagnosis: Pelvic pain in female[ICD9: 625.9] Suma Alvarado MD, [facility] CPT- 4: 26617 10/09/2014 ([id number]) 34561 EST. PATIENT, LEVEL III Diagnosis: HYPOTHYROIDISM[ICD9: 244.9] Elina Alvarado MD, [facility] CPT-4: 77423 08/26/2014 ([id number]) 99286 EST. PATIENT, LEVEL III Diagnosis: Neck pain[ICD9: 723.1] Diagnosis: Muscle tension headache[ICD9: 307.81] Suma Alvarado MD, [facility] CPT-4: 37590 05/16/2014 ([id number]) 59281 EST. PATIENT, LEVEL IV Diagnosis: Arthropod bite[ICD9: 919.4] Diagnosis: Poison gilmer dermatitis[ICD9: 692.6] Diagnosis: Arthralgia[ICD9: 719.40] Diagnosis: Myalgia[ICD9: 729.1] Elina Alvarado MD, [facility] CPT-4: 51450 04/23/2014 ([id number]) 83454 EST. PATIENT, LEVEL III Diagnosis: ACUTE URI[ICD9: 465.9] Diagnosis: COUGH[ICD9: 786.2] Suma Alvarado MD, [facility] CPT-4: 65657 01/21/2014 ([id number]) 79698 EST. PATIENT, LEVEL III Diagnosis: HYPOTHYROIDISM[ICD9: 244.9] Diagnosis: GENERALIZED ANXIETY DISEASE[ICD9: 300.02] Elina Alvarado MD, [facility] CPT-4: 84925 12/05/2013 ([id number]) 13399 EST. PATIENT, LEVEL III Diagnosis: GENERALIZED ANXIETY DISEASE[ICD9: 300.02] Diagnosis: DEPRESSIVE DISORDER NEC[ICD9: 311] Elina Alvarado MD, [facility] CPT- 4: 20292 11/05/2013 ([id number]) 31013 EST. PATIENT, LEVEL III Diagnosis: HYPOTHYROIDISM[ICD9: 244.9] Elina Alvarado MD, [facility] CPT-4: 63109 10/15/2013 ([id number]) Miscellaneous no charge Diagnosis: Colon cancer screening[ICD9: V76.51] Elina Alvarado MD, [facility] CPT- 4: 25061 10/10/2013 ([id number]) 08903 EST. PATIENT, LEVEL IV Diagnosis: HYPOTHYROIDISM[ICD9: 244.9] Diagnosis: DEPRESSIVE DISORDER NEC[ICD9: 311] Diagnosis: GENERALIZED ANXIETY DISEASE[ICD9: 300.02] Diagnosis: HYPERLIPIDEMIA[ICD9: 272.4] Elina Alvarado MD, [facility] CPT-4: 69815 03/13/2013 ([id number]) 27585 EST. PATIENT, LEVEL IV Diagnosis: HYPERLIPIDEMIA[ICD9: 272.4] Diagnosis: HYPOTHYROIDISM[ICD9: 244.9] Diagnosis: GENERALIZED ANXIETY DISEASE[ICD9: 300.02] Diagnosis: DEPRESSIVE DISORDER NEC[ICD9: 311] Elina Alvarado MD, [facility] CPT- 4: 57036 10/04/2012 ([id number]) 99968 EST. PATIENT, LEVEL III Diagnosis: VICTOR HUGO (generalized anxiety disorder)[ICD9: 300.02] Diagnosis: Chronic depression[ICD9: 311] Elina Alvarado MD, [facility] CPT-4: 27350 08/22/2011 95657 EST. PATIENT, LEVEL IV Diagnosis: CHEST PAIN NEC[ICD9: 786.59] Diagnosis: HYPERLIPIDEMIA[ICD9: 272.4] Diagnosis: POSTSURGICAL HYPOTHYROIDISM[ICD9: 244.0] [facility] CPT-4: 10261 06/17/2011 Plan of Care Planned Activity Notes Codes Status Date Appointment: Suma Choi WPtel: [phone] [place] (15 min) Moderate 05/07/2018 Patient Education: Patient Medication Summary Completed 05/07/2018 Appointment: Injection 04/24/2018 Patient Education: Patient Medication Summary Completed 04/24/2018 Referral: Ramiro [address] Referral Completed 03/22/2018 Appointment: Gina Kern WPtel: [id number] (15 min) Moderate 02/21/2018 Patient Education: Patient Medication Summary Completed 02/21/2018 Care Plan: Referral Order SNOMED-CT : [id number] Pending 02/21/2018 Appointment: Elina Alvarado WPtel: [facility]5 [facility] (15 min) Moderate 12/14/2017 Patient Education: Patient Medication Summary Completed 11/28/2017 Appointment: Gina Kern WPtel: [facility] [place] MCR - Annual Wellness Visit 11/21/2017 Appointment: Gina Kern WPtel: [facility] [place] (15 min) Moderate 08/29/2017 Patient Education: Patient Medication Summary Completed 08/29/2017 Appointment: Elina Alvarado WPtel: [facility] (15 min) Moderate 06/13/2017 Patient Education: Patient Medication Summary Completed 06/13/2017 Appointment: Injection 06/07/2017 Patient Education: Patient Medication Summary Completed 06/07/2017 Appointment: Suma Choi WPtel: [phone] (30 min) Complex 02/16/2017 Patient Education: Patient Medication Summary Completed 02/16/2017 Care Plan: PAP Pending 02/16/2017 Appointment: Elina Alvarado WPtel: [address] [place], [place] [phone] (15 min) Moderate 02/06/2017 Patient Education: Patient Medication Summary Completed 02/06/2017 Appointment: Gina Kern WPtel: [facility] MCR - Annual Wellness Visit 11/17/2016 Patient Education: Patient Medication Summary Completed 11/17/2016 Appointment: Elina Alvarado WPtel: [address] [place], [place] [phone] (15 min) Moderate 10/12/2016 Patient Education: Patient [...] : J06.9 09/05/2016 Appointment: Suma Choi WPtel: [phone] [place] (10 min) Simple 09/05/2016 Patient Education: Patient Medication Summary Completed 09/05/2016 Appointment: Elina Alvarado WPtel: [facility] (15 min) Moderate 06/21/2016 Patient Education: Patient Medication Summary Completed 06/21/2016 Appointment: Elina Alvarado WPtel: [facility] (15 min) Moderate 05/24/2016 Patient Education: Patient Medication Summary Completed 05/24/2016 Appointment: Elina Alvarado WPtel: [facility] (15 min) Moderate 05/10/2016 Patient Education: Patient Medication Summary Completed 05/10/2016 Patient Education: Patient Medication Summary Completed 05/03/2016 Appointment: Suma Choi WPtel: [phone] (15 min) Moderate 02/26/2016 Appointment: [facility] - Annual Wellness Visit 11/13/2015 Patient Education: Patient Medication Summary Completed 11/13/2015 Patient Education: Obesity Completed 11/13/2015 Care Plan: SCREENINGMAMMOGRAPHYDIGITAL LOINC : 79326-7 Ordered 11/13/2015 Appointment: Lab Draw 08/10/2015 Patient Education: Patient Medication Summary Completed 07/23/2015 Appointment: Elina Alvarado WPtel: [facility] [place] (30 min) Complex 07/06/2015 Patient Education: Patient Medication Summary Completed 07/06/2015 Patient Education: Patient Medication Summary Completed 05/26/2015 Patient Education: Patient Medication Summary Completed 02/16/2015 Appointment: Elina Alvarado WPtel: [address] [place], [place] [id number] Surgical Clearance 12/10/2014 Patient Education: Patient Medication Summary Completed 12/10/2014 Appointment: Elina Alvarado WPtel: [address] [place], [place] [id number] Follow up 10/16/2014 Patient Education: Patient Medication Summary Completed 10/16/2014 Care Plan: Referral Order SNOMED-CT : [id number] Ordered 10/16/2014 Patient Education: Patient Medication Summary Completed 10/10/2014 Patient Education: Patient Medication Summary Completed 10/09/2014 Care Plan: CT ABD & PELV 1/> REGNS LOINC : 66518-7 Ordered 10/09/2014 Appointment: Elina Alvarado WPtel: [facility] Follow up 08/26/2014 Patient Education: Patient Medication Summary Completed 08/26/2014 Appointment: Sick 05/16/2014 Patient Education: Patient Medication Summary Completed 05/16/2014 Patient Education: .Cervicalgia Neck Pain Completed 05/16/2014 Appointment: Elina Alvarado WPtel: [address] [place], [place] [phone] Sick 04/23/2014 Patient Education: Patient Medication Summary Completed 04/23/2014 Care Plan: Referral Order SNOMED-CT : [id number] Ordered 04/23/2014 Appointment: Nurse Visit 04/15/2014 Patient Education: Patient Medication Summary Completed 04/15/2014 Appointment: Elina Alvarado WPtel: [address] [place], [place] [phone] Injection 02/11/2014 Patient Education: Patient Medication Summary Completed 02/11/2014 Patient Education: Patient Medication Summary Completed 01/21/2014 Appointment: Elina Alvarado WPtel: [address] [place], [place] [phone] Follow up 12/05/2013 Patient Education: Patient Medication Summary Completed 12/05/2013 Appointment: Elina Alvarado WPtel: [address] [place], [place] [id number] Follow up 11/05/2013 Patient Education: Patient Medication Summary Completed 11/05/2013 Appointment: Elina Alvarado WPtel: [address] [place] [id number] Well Woman 10/15/2013 Patient Education: Patient Medication Summary Completed 10/15/2013 Patient Education: Patient Medication Summary Completed 10/10/2013 Appointment: Elina Alvarado WPtel: [address] [place], [place] [phone] MCR - Initial Preventive Physical Exam 09/30/2013 Patient Education: Patient Medication Summary Completed 09/30/2013 Appointment: Elina Alvarado WPtel: [address] [place], [place] [phone] [place] MCR - Initial Preventive Physical Exam 09/11/2013 Appointment: Elina Alvarado WPtel: [address] [place], [place] [phone] Follow up 03/13/2013 Patient Education: Patient Medication Summary Completed 03/13/2013 Appointment: Elina Alvarado WPtel: [address] [place], [place] [phone] Follow up 10/04/2012 Patient Education: Patient Medication Summary Completed 10/04/2012 Appointment: Elina Alvarado WPtel: [address] [place] [phone] Other 08/22/2011 Patient Education: Patient Medication Summary Completed 08/22/2011 Appointment: Elina Alvarado WPtel: [address] [place], [place] [phone] Other 06/17/2011 Patient Education: Patient Medication Summary Completed 06/17/2011 Referral: Raimundo Brandt WPtel: Referral Appointment Requested Referral: Ramiro [facility] Referral Initiated Referral: Dr. Phelps WPtel: Referral Initiated Instructions No Instructions
--- OUTSIDE RECORDS SUMMARY | 2018-12-27 10:07 | XMS REPORT | CCD ---
Author Author [facility]ina [facility] Organization [facility] Address [address] [place] [address] Phone Care Team Providers Care Clearance Coordinator Name Role Phone PP Unavailable CCM Unavailable Summary Purpose Interface Exchange Insurance Providers Payer name Policy type / Coverage type Covered alliance party ID Effective Begin Date Effective End Date WPS Medicare Part B [id number] 2014 Unknown [facility] [id number] 2014 Unknown Family history Sister Diagnosis Age [...] Description Effective Dates Tobacco history SNOMED CT: 7392827 Former smoker quit 2 years ago, social smoker, 1 pack per month 200709/30/2013 Employment Unknown 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.0 Active 06/13/2017 Unknown Encounter for immunization ICD-9: V04.81 ICD-10: Z23 Active 06/07/2017 Unknown Acute vaginitis ICD-9: 623.5 ICD-10: N76.0 Active 02/16/2017 Unknown Pelvic and perineal pain ICD-9: [id number] ICD-10: R10.2 Active 02/16/2017 Unknown Encounter for general adult medical examination [...] Condition Codes Effective Dates Condition Status Acute laryngopharyngitis ICD-9: 465.0 ICD-10: J06.0 08/29/2017 Active Other allergic rhinitis ICD-9: 477.8 ICD-10: J30.89 08/29/2017 Active Generalized anxiety disorder ICD-9: 300.02 ICD-10: F41.1 12/05/2013 Active Major depressive disorder, recurrent, moderate ICD-9: 296.32 ICD-10: F33.1 06/20/2016 Active 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.0 06/13/2017 Active Encounter for immunization ICD-9: V04.81 ICD-10: Z23 06/07/2017 Active Acute vaginitis ICD-9: 623.5 ICD-10: N76.0 02/16/2017 Active Pelvic and perineal pain ICD-9: [id number] ICD-10: R10.2 02/16/2017 Active Encounter for general adult medical examination [...] Start Date Stop Date Status Fill Instructions Tamiflu 75 mg capsule RxNorm: 670999 1 Capsule(s) PO BID 08/29/2017 09/02/2017 Active Synthroid 112 mcg tablet RxNorm: 490092 1 Tablet(s) daily 08/14/2017 12/05/2017 Active fyi - medication changed, refill x 6 - #30 pills Synthroid 112 mcg tablet RxNorm: 570153 1 Tablet(s) daily 06/13/2017 08/13/2017 Inactive fyi - medication changed, refill x 6 - #30 pills Lexapro 20 mg tablet RxNorm: 127684 TAKE ONE TABLET BY MOUTH DAILY 06/09/2017 11/05/2017 Active Synthroid 112 mcg tablet RxNorm: 285398 TAKE 1 TABLET BY MOUTH DAILY EXCEPT TAKE 1/2 TABLET ON MONDAY, MONDAY, AND Monday05/22/2017 06/12/2017 Inactive Lipitor 10 mg tablet RxNorm: 766153 TAKE ONE TABLET BY MOUTH EVERY DAY 03/08/2017 05/31/2018 Active Flagyl 500 mg tablet RxNorm: 462248 1 Tablet(s) PO TID 02/16/2017 02/22/2017 Inactive Xanax 0.5 mg tablet RxNorm: 553405 1 Tablet(s) PO QID as needed anxiety 12/23/2016 03/22/2017 Inactive Synthroid 112 mcg tablet RxNorm: 412134 TAKE 1 TABLET BY MOUTH DAILY EXCEPT FOR TAKE 1/2 TABLET ON MONDAY, MONDAY, AND Monday12/23/2016 04/13/2017 Inactive Lexapro 20 mg tablet RxNorm: 973444 TAKE ONE TABLET BY MOUTH DAILY 11/29/2016 05/27/2017 Inactive Zithromax Z-Que 250 mg tablet RxNorm: 215741 1 Tablet(s) PO UD 09/05/2016 09/09/2016 Inactive zpack Kenalog 40 mg/mL suspension for injection RxNorm: 6348050 1 Milliliter(s) Inj 09/05/2016 09/05/2016 Inactive Lipitor 10 mg tablet RxNorm: 379537 TAKE ONE TABLET BY MOUTH EVERY DAY 08/30/2016 02/25/2017 Inactive Ativan 1 mg tablet RxNorm: 893007 1 Tablet(s) PO Q6 PRN as needed TAKE ONE TABLET BY MOUTH THREE TIMES A DAY OR EVERY 6 HOURS NEEDED FOR ANXIETY 08/30/2016 12/22/2016 Inactive Synthroid 112 mcg tablet RxNorm: 566840 1 Tablet(s) PO daily except one-half tab on Mon/Mon/Sat 08/23/2016 12/12/2016 Inactive will refill when needed Lexapro 20 mg tablet RxNorm: 263679 TAKE ONE TABLET BY MOUTH DAILY 08/02/2016 11/28/2016 Inactive Synthroid 112 mcg tablet RxNorm: 026180 1 Tablet(s) PO daily except 1/2 tab wed and sat 05/25/2016 08/22/2016 Inactive will refill when needed Xanax 0.5 mg tablet RxNorm: 736675 1 Tablet(s) PO QID as needed anxiety 05/10/2016 08/29/2016 Inactive Lexapro 20 mg tablet RxNorm: 112157 1 Tablet(s) PO daily 05/03/2016 07/31/2016 Inactive 1/2 tab x 1 week then increase to a full pill daily buspirone 5 mg tablet RxNorm: 342570 TAKE ONE-HALF TABLET BY MOUTH TWICE A DAY 03/15/2016 05/02/2016 Inactive Synthroid 112 mcg tablet RxNorm: 161964 1 Tablet(s) PO daily 02/25/2016 05/24/2016 Inactive Ativan 1 mg tablet RxNorm: 832355 Tablet(s) TAKE ONE TABLET BY MOUTH THREE TIMES A DAY OR EVERY 6 HOURS NEEDED FOR ANXIETY 02/04/2016 05/08/2016 Inactive Synthroid 125 mcg tablet RxNorm: 298963 TAKE ONE TABLET BY MOUTH TWICE WEEKLY 01/11/2016 02/24/2016 Inactive Synthroid 112 mcg tablet RxNorm: 485770 TAKE ONE TABLET BY MOUTH FIVE DAYS A WEEK 01/11/2016 02/24/2016 Inactive Wellbutrin 75 mg tablet RxNorm: 264549 TAKE ONE TABLET BY MOUTH TWICE A DAY 01/11/2016 05/02/2016 Inactive Ativan 1 mg tablet RxNorm: 289236 TAKE ONE TABLET BY MOUTH THREE TIMES A DAY OR EVERY 6 HOURS NEEDED 12/03/2015 12/27/2015 Inactive Lipitor 10 mg tablet RxNorm: 791343 TAKE ONE TABLET BY MOUTH EVERY DAY 12/03/2015 08/28/2016 Inactive Ativan 1 mg tablet RxNorm: 497030 Tablet(s) TAKE ONE TABLET BY MOUTH THREE TIMES A DAY AND TAKE ONE TABLET BY MOUTH EVERY 6 HOURS NEEDED FOR ANXIETY 12/03/2015 12/02/2015 Inactive (Response to an electronic controlled substance refill request - RxReferenceNumber: [id number]) Wellbutrin 75 mg tablet RxNorm: 212510 1 Tablet(s) PO BID 11/13/2015 01/10/2016 Inactive Ativan 1 mg tablet RxNorm: 474581 Tablet(s) TAKE ONE TABLET BY MOUTH THREE TIMES A DAY AND TAKE ONE TABLET BY MOUTH EVERY 6 HOURS NEEDED FOR ANXIETY 09/23/2015 10/30/2015 Inactive (Response to an electronic controlled substance refill request - RxReferenceNumber: [id number]) buspirone 5 mg tablet RxNorm: 089530 TAKE ONE-HALF TABLET BY MOUTH TWICE A DAY 08/18/2015 03/01/2016 Inactive ceftriaxone 500 mg solution for injection RxNorm: 8255837 Inj 07/23/2015 07/23/2015 Inactive Zithromax Z-Que 250 mg tablet RxNorm: 321660 1 Tablet(s) PO UD 07/23/2015 07/27/2015 Inactive ZPACK buspirone 5 mg tablet RxNorm: 114378 1 Tablet(s) PO daily 07/06/2015 10/03/2015 Inactive buspirone 5 mg tablet RxNorm: 474989 1/2 Tablet(s) PO BID 05/26/2015 07/05/2015 Inactive Lipitor 10 mg tablet RxNorm: 347828 TAKE ONE TABLET BY MOUTH EVERY DAY 04/23/2015 10/19/2015 Inactive Ativan 1 mg tablet RxNorm: 802664 Tablet(s) TAKE ONE TABLET BY MOUTH THREE TIMES A DAY AND TAKE ONE TABLET BY MOUTH EVERY 6 HOURS NEEDED FOR ANXIETY 02/23/2015 04/01/2015 Inactive (Response to an electronic controlled substance refill request - RxReferenceNumber: [id number]) Synthroid 125 mcg tablet RxNorm: 615212 1 Tablet(s) PO UD twice weekly 12/10/2014 06/07/2015 Inactive Synthroid 112 mcg tablet RxNorm: 914840 1 Tablet(s) PO UD TAKE ONE TABLET BY MOUTH 5 days a week 12/10/2014 12/04/2015 Inactive Lexapro 20 mg tablet RxNorm: 914609 1 Tablet(s) PO daily 11/26/2014 11/12/2015 Inactive Lipitor 10 mg tablet RxNorm: 503407 TAKE ONE TABLET BY MOUTH EVERY DAY 10/21/2014 04/18/2015 Inactive amoxicillin 500 mg capsule RxNorm: 624053 1 Capsule(s) PO TID 10/15/2014 10/21/2014 Inactive take probiotic BID x 7 days during abt period amoxicillin 500 mg capsule RxNorm: 001941 1 Capsule(s) PO TID 10/15/2014 10/14/2014 Inactive take probiotic BID x 7 days during abt period Ativan 1 mg tablet RxNorm: 483071 TAKE ONE TABLET BY MOUTH THREE TIMES A DAY AND TAKE ONE TABLET BY MOUTH EVERY 6 HOURS NEEDED FOR ANXIETY 08/21/2014 09/28/2014 Inactive (Response to an electronic controlled substance refill request - RxReferenceNumber: [id number]) Ativan 1 mg tablet RxNorm: 331788 1 Tablet(s) PO tid and Q6 PRN as needed 08/18/2014 08/21/2014 Inactive doxycycline hyclate 100 mg tablet RxNorm: 364392 1 Tablet(s) PO BID 04/23/2014 05/25/2015 Inactive prednisone 10 mg tablets in a dose pack RxNorm: 030631 1 Tablet(s) PO 02/14/2014 05/25/2015 Inactive Kenalog 40 mg/mL suspension for injection RxNorm: 8684772 1 Milliliter(s) Inj 02/11/2014 02/11/2014 Inactive Keflex 500 mg capsule RxNorm: 006439 1 Capsule(s) PO TID 01/21/2014 01/27/2014 Inactive Kenalog 40 mg/mL suspension for injection RxNorm: 0752621 Milliliter(s) Inj 01/21/2014 01/21/2014 Inactive Synthroid 112 mcg tablet RxNorm: 095228 1 Tablet(s) PO daily TAKE ONE TABLET BY MOUTH EVERY DAY 12/05/2013 11/29/2014 Inactive Ativan 1 mg tablet RxNorm: 987675 1 Tablet(s) PO Q6 PRN 11/05/2013 02/02/2014 Inactive Lexapro 20 mg tablet RxNorm: 776674 1 Tablet(s) PO daily 11/05/2013 11/04/2013 Inactive Lexapro 20 mg tablet RxNorm: 798430 1 Tablet(s) PO daily 11/05/2013 10/30/2014 Inactive Lipitor 10 mg tablet RxNorm: 681353 1 Tablet(s) PO QPM TAKE ONE TABLET BY MOUTH EVERY DAY 09/30/2013 10/20/2014 Inactive Lexapro 20 mg tablet RxNorm: 859853 1 Tablet(s) PO daily 09/30/2013 11/04/2013 Inactive Synthroid 125 mcg tablet RxNorm: 052267 1 Tablet(s) PO daily 09/10/2013 12/04/2013 Inactive Synthroid 100 mcg tablet RxNorm: 508471 1 Tablet(s) PO daily TAKE ONE TABLET BY MOUTH EVERY DAY 09/06/2013 09/09/2013 Inactive Lipitor 10 mg tablet RxNorm: 437271 Tablet(s) PO TAKE ONE TABLET BY MOUTH EVERY DAY 08/15/2013 09/29/2013 Inactive Synthroid 100 mcg tablet RxNorm: 981263 1 Tablet(s) PO daily TAKE ONE TABLET BY MOUTH EVERY DAY 04/26/2013 09/05/2013 Inactive Ativan 1 mg tablet RxNorm: 112463 1 Tablet(s) PO Q6 PRN 03/13/2013 No Stop Date Active Synthroid 100 mcg tablet RxNorm: 875017 1 Tablet(s) PO daily TAKE ONE TABLET BY MOUTH EVERY DAY 03/13/2013 04/25/2013 Inactive Lexapro 20 mg tablet RxNorm: 130582 1/2 Tablet(s) PO BID 03/13/2013 09/29/2013 Inactive Synthroid 112 mcg tablet RxNorm: 424381 Tablet(s) PO TAKE ONE TABLET BY MOUTH EVERY DAY 01/08/2013 03/12/2013 Inactive Lexapro 20 mg tablet RxNorm: 125453 Tablet(s) PO TAKE 1/2 TABLET EVERY MORNING AND TAKE ONE TABLET BY MOUTH AT BEDTIME 10/18/2012 03/12/2013 Inactive Lipitor 20 mg tablet RxNorm: 568359 1/2 Tablet(s) PO daily 08/20/2012 02/04/2013 Inactive Lipitor 10 mg tablet RxNorm: 467470 1 Tablet(s) PO daily 05/23/2012 08/19/2012 Inactive Synthroid 112 mcg tablet RxNorm: 543581 1 Tablet(s) PO daily 12/16/2011 01/07/2013 Inactive Synthroid 112 mcg Tab RxNorm: 731138 1 Tablet(s) PO daily 12/16/2011 12/15/2011 Inactive Lipitor 10 mg tablet RxNorm: 328010 1 Tablet(s) PO daily 12/15/2011 05/22/2012 Inactive Synthroid 112 mcg Tab RxNorm: 143734 1 Tablet(s) PO every other day 11/09/2011 12/15/2011 Inactive every other day Synthroid 112 mcg Tab RxNorm: 039408 1 Tablet(s) PO every other day 10/21/2011 11/08/2011 Inactive every other day Synthroid 125 mcg Tab RxNorm: 662623 1 Tablet(s) PO every other day 10/21/2011 12/16/2011 Inactive every other day Lexapro 20 mg tablet RxNorm: 832065 1.5 Tablet(s) PO daily 1/2 pill in AM and 1 pill at bedtime 09/22/2011 04/18/2012 Inactive 1/2 q am 1 q hs diazepam 5 mg Tab RxNorm: 076771 1 Tablet(s) PO daily 1 tab bid prn 09/21/2011 05/17/2012 Inactive Lexapro 20 mg Tab RxNorm: 729994 1.5 Tablet(s) PO daily 1/2 pill in AM and 1 pill at bedtime 08/22/2011 09/21/2011 Inactive diazepam 5 mg Tab RxNorm: 886702 1 Tablet(s) PO daily 1 tab bid prn 06/20/2011 09/20/2011 Inactive diazepam 5 mg Tab RxNorm: 268923 1 Tablet(s) PO daily 1 tab bid prn 06/20/2011 06/19/2011 Inactive diazepam 5 mg Tab RxNorm: 428289 1 Tablet(s) PO daily 1 tab bid prn 06/17/2011 06/19/2011 Inactive Lipitor 10 mg Tab RxNorm: 621398 1 Tablet(s) PO daily 05/31/2011 11/26/2011 Inactive diazepam 5 mg Tab RxNorm: 845146 1 Tablet(s) PO BID 1 tab bid prn 04/21/2011 05/20/2011 Inactive Calcium 600 + D(3) Oral RxNorm: Oral No Start Date Active Menest 0.625 mg Tab RxNorm: 528296 1 Tablet(s) PO daily No Start Date 06/16/2011 Inactive Synthroid 125 mcg tablet RxNorm: 585959 Tablet(s) PO No Start Date 09/09/2013 Inactive Ativan 1 mg tablet RxNorm: 088617 1 Tablet(s) PO Q6 PRN No Start Date 08/21/2011 Inactive aspirin 81 mg Tab, Delayed Release RxNorm: 3308143 1 Tablet(s) PO daily No Start Date 09/29/2013 Inactive Lexapro 10 mg Tab RxNorm: 379237 1 Tablet(s) PO daily No Start Date 08/22/2011 Inactive prednisone 10 mg tablets in a dose pack RxNorm: 794522 1 Tablet(s) PO No Start Date 02/13/2014 Inactive Synthroid 112 mcg Tab RxNorm: 936967 Tablet(s) PO tu/th/sat/sun No Start Date 10/20/2011 Inactive lorazepam 1 mg Tab RxNorm: 678532 Tablet(s) PO Q6 PRN No Start Date 11/04/2013 Inactive Lipitor 20 mg tablet RxNorm: 610999 1/2 Tablet(s) PO daily No Start Date 08/20/2012 Inactive Vitamin D2 oral RxNorm: oral No Start Date 09/29/2013 Inactive Synthroid 125 mcg Tab RxNorm: 451499 1 Tablet(s) PO No Start Date 10/20/2011 Inactive synthroid 112 mcg tue thur sat sun Medication Administered Medication Codes Instructions Start Date Status Kenalog 40 mg/mL suspension for injection RxNorm: 9521481 1Milliliter 09/05/2016 No longer Active ceftriaxone 500 mg solution for injection RxNorm: 7013244 07/23/2015 No longer Active Kenalog 40 mg/mL suspension for injection RxNorm: 4001154 1Milliliter 02/11/2014 No longer Active Kenalog 40 mg/mL suspension for injection RxNorm: 5310137 Milliliter 01/21/2014 No longer Active Immunizations Vaccine Codes Date Status Influenza CVX: 141 06/07/2017 completed Pneumococcal (Adult) CVX: 133 11/13/2015 completed Influenza CVX: 141 04/15/2014 completed Pneumococcal (Adult) CVX: 33 04/15/2014 completed PPD Unknown 10/10/2013 completed Influenza CVX: 141 09/30/2013 completed Assessments Condition Codes Effective Dates Other allergic rhinitis ICD-10: J30.89 ICD-9: 477.8 08/29/2017 Acute laryngopharyngitis ICD-10: J06.0 ICD-9: 465.0 08/29/2017 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 ICD-9: 244.0 06/13/2017 Generalized anxiety disorder ICD-10: F41.1 ICD-9: 300.02 06/13/2017 Major depressive disorder, recurrent, moderate ICD-10: F33.1 ICD-9: 296.32 06/13/2017 Encounter for immunization ICD-10: Z23 ICD-9: V04.81 06/07/2017 Pelvic and perineal pain ICD-10: R10.2 ICD-9: [id number] 02/16/2017 Acute vaginitis ICD-10: N76.0 ICD-9: 623.5 [...] Reason For Visit Effective Dates Notes cough 08/29/2017 depression 06/13/2017 stable vaccination against [...] Item Code Result Date Lipid Ord30 CHOL 163 mg/dL 06/07/2017 Lipid Ord30 HDL 52.0 mg/dl 06/07/2017 Lipid Ord30 TRIG 120 mg/dL 06/07/2017 Lipid Ord30 LDL 87 mg/dL 06/07/2017 Lipid Ord30 C/HDL 3.1 Ratio 06/07/2017 Tsh Ord6 hTSH II 4.83 uIU/mL 06/07/2017 Comp Metabolic Kgx520 NA 141 mEq/L 06/07/2017 Comp Metabolic Wpt414 K 4.3 mEq/L 06/07/2017 Comp Metabolic Nyg048 CL 106 mEq/L 06/07/2017 Comp Metabolic Pjx566 CO2 26.0 mEq/L 06/07/2017 Comp Metabolic Hxq963 ANION GAP 13 06/07/2017 Comp Metabolic Gbx577 GLUCOSE 93 mg/dL 06/07/2017 Comp Metabolic Xcy632 Creat 0.9 mg/dL 06/07/2017 Comp Metabolic Ybu821 eGFR 65 ml/min/1.73m2 06/07/2017 Comp Metabolic Ohn125 BUN 10 mg/dL 06/07/2017 Comp Metabolic Yga587 B/C Ratio 11.0 Ratio 06/07/2017 Comp Metabolic Ebz112 CALCIUM 8.9 mg/dL 06/07/2017 Comp Metabolic Ngm220 ALK PHOS 69 U/L 06/07/2017 Comp Metabolic Hog781 AST(SGOT) 18 U/L 06/07/2017 Comp Metabolic Zic323 ALT(SGPT) 15 U/L 06/07/2017 Comp Metabolic Zty805 BILI T 0.5 mg/dL 06/07/2017 Comp Metabolic Yup886 ALBUMIN 4.1 g/dL 06/07/2017 Comp Metabolic Fvw503 TPRO 6.5 g/dL 06/07/2017 Comp Metabolic Dpz002 GLOB 2.4 g/dL 06/07/2017 Comp Metabolic Mwd305 A/G Ratio 1.7 Ratio 06/07/2017 Comp Metabolic Rvu853 Osmo 280 mOsmo 06/07/2017 Cbc With Differential [...] 30.7 pg 06/07/2017 Cbc With Differential Ord2 [place]% 9.1 % 06/07/2017 Cbc With Differential Ord2 MCHC 33.7 pg 06/07/2017 Cbc With Differential Ord2 Eos% 3.5 % 06/07/2017 Cbc With Differential Ord2 PLT 479 K/ul 06/07/2017 Cbc With Differential Ord2 Baso% 0.6 % 06/07/2017 Cbc With Differential Ord2 Neut ABS# 3.05 K/ul 06/07/2017 Cbc With Differential Ord2 RDW 12.9 % 06/07/2017 Cbc With Differential Ord2 Lymph ABS# 1.62 K/ul 06/07/2017 Cbc With Differential Ord2 [place] ABS# 0.5 K/ul 06/07/2017 Cbc With Differential Ord2 Eos ABS# 0.2 K/ul 06/07/2017 Cbc With Differential Ord2 Baso ABS# 0.0 K/ul 06/07/2017 Free T4 Jjc328 FREE T4 0.92 ng/dL 06/07/2017 Tsh Ord6 hTSH II 1.07 uIU/mL 11/17/2016 Free T4 Yhh148 FREE T4 1.02 ng/dL 11/17/2016 Lipid Ord30 CHOL 195 mg/dL 10/13/2016 Lipid Ord30 HDL 68.0 mg/dl 10/13/2016 Lipid Ord30 TRIG 69 mg/dL 10/13/2016 Lipid Ord30 LDL 113 mg/dL 10/13/2016 Lipid Ord30 C/HDL 2.9 Ratio 10/13/2016 Comp Metabolic Wqy413 NA 138 mEq/L 10/13/2016 Comp Metabolic Ocn363 K 4.4 mEq/L 10/13/2016 Comp Metabolic Zho871 CL 102 mEq/L 10/13/2016 Comp Metabolic Nnf127 CO2 29.0 mEq/L 10/13/2016 Comp Metabolic Lzj436 ANION GAP 11 10/13/2016 Comp Metabolic Mwr547 GLUCOSE 85 mg/dL 10/13/2016 Comp Metabolic Fif529 Creat 1.0 mg/dL 10/13/2016 Comp Metabolic Dpl251 eGFR 59 ml/min/1.73m2 10/13/2016 Comp Metabolic Hle207 BUN 21 mg/dL 10/13/2016 Comp Metabolic Cdq578 B/C Ratio 21.2 Ratio 10/13/2016 Comp Metabolic Rue759 CALCIUM 9.7 mg/dL 10/13/2016 Comp Metabolic Ckx535 ALK PHOS 70 U/L 10/13/2016 Comp Metabolic Pig200 AST(SGOT) 17 U/L 10/13/2016 Comp Metabolic Qif529 ALT(SGPT) 14 U/L 10/13/2016 Comp Metabolic Zmp282 BILI T 0.9 mg/dL 10/13/2016 Comp Metabolic Ykw818 ALBUMIN 4.4 g/dL 10/13/2016 Comp Metabolic Hfa481 TPRO 7.1 g/dL 10/13/2016 Comp Metabolic Fbn802 GLOB 2.7 g/dL 10/13/2016 Comp Metabolic Nmk484 A/G Ratio 1.6 Ratio 10/13/2016 Comp Metabolic Ftb738 Osmo 278 mOsmo 10/13/2016 Cbc With Differential [...] 29.7 pg 10/13/2016 Cbc With Differential Ord2 [place]% 7.7 % 10/13/2016 Cbc With Differential Ord2 [...] 1.43 K/ul 10/13/2016 Cbc With Differential Ord2 [place] ABS# 0.5 K/ul 10/13/2016 Cbc With Differential Ord2 Eos ABS# 0.1 K/ul 10/13/2016 Cbc With Differential Ord2 Baso ABS# 0.0 K/ul 10/13/2016 Free T4 Wvu720 FREE T4 1.31 ng/dL 08/17/2016 Tsh Ord6 hTSH II 0.64 uIU/mL 08/17/2016 Free T4 Uom369 FREE T4 1.49 ng/dL 05/10/2016 Comp Metabolic Jxe155 NA 139 mEq/L 05/10/2016 Comp Metabolic Bxr546 K 4.5 mEq/L 05/10/2016 Comp Metabolic Aio868 CL 104 mEq/L 05/10/2016 Comp Metabolic Dwq767 CO2 24.0 mEq/L 05/10/2016 Comp Metabolic Qog291 ANION GAP 16 05/10/2016 Comp Metabolic Sdj566 GLUCOSE 87 mg/dL 05/10/2016 Comp Metabolic Spi588 Creat 0.9 mg/dL 05/10/2016 Comp Metabolic Spw783 eGFR 71 ml/min/1.73m2 05/10/2016 Comp Metabolic Hjn639 BUN 12 mg/dL 05/10/2016 Comp Metabolic Cnd647 B/C Ratio 14.1 Ratio 05/10/2016 Comp Metabolic Ffo210 CALCIUM 9.6 mg/dL 05/10/2016 Comp Metabolic Vwz411 ALK PHOS 89 U/L 05/10/2016 Comp Metabolic Mpj435 AST(SGOT) 17 U/L 05/10/2016 Comp Metabolic Dxd282 ALT(SGPT) 17 U/L 05/10/2016 Comp Metabolic Aaq400 BILI T 0.9 mg/dL 05/10/2016 Comp Metabolic Imz801 ALBUMIN 4.2 g/dL 05/10/2016 Comp Metabolic Vdd893 TPRO 6.7 g/dL 05/10/2016 Comp Metabolic Wlk814 GLOB 2.5 g/dL 05/10/2016 Comp Metabolic Zrh310 A/G Ratio 1.7 Ratio 05/10/2016 Comp Metabolic Rbg853 Osmo 277 mOsmo 05/10/2016 Cbc With Differential [...] 23.8 % 05/10/2016 Cbc With Differential Ord2 [place]% 8.3 % 05/10/2016 Cbc With Differential Ord2 [...] 1.57 K/ul 05/10/2016 Cbc With Differential Ord2 [place] ABS# 0.6 K/ul 05/10/2016 Cbc With Differential Ord2 Eos ABS# 0.2 K/ul 05/10/2016 Cbc With Differential Ord2 Baso ABS# 0.0 K/ul 05/10/2016 Tsh Ord6 hTSH II 0.03 uIU/mL 05/10/2016 Free T4 Ohj903 FREE T4 1.67 ng/dL 02/18/2016 Tsh Ord6 hTSH II 0.06 uIU/mL 02/18/2016 Comp Metabolic Omi693 NA 138 mEq/L 02/18/2016 Comp Metabolic Azy588 K 4.5 mEq/L 02/18/2016 Comp Metabolic Bfn740 CL 104 mEq/L 02/18/2016 Comp Metabolic Pyd886 CO2 26.0 mEq/L 02/18/2016 Comp Metabolic Jdk040 ANION GAP 13 02/18/2016 Comp Metabolic Vlj989 GLUCOSE 88 mg/dL 02/18/2016 Comp Metabolic Fwh855 Creat 0.9 mg/dL 02/18/2016 Comp Metabolic Rnl420 eGFR 69 ml/min/1.73m2 02/18/2016 Comp Metabolic Eiz127 BUN 14 mg/dL 02/18/2016 Comp Metabolic Osk351 B/C Ratio 16.1 Ratio 02/18/2016 Comp Metabolic Qsu912 CALCIUM 9.4 mg/dL 02/18/2016 Comp Metabolic Ggf429 ALK PHOS 95 U/L 02/18/2016 Comp Metabolic Zjv626 AST(SGOT) 19 U/L 02/18/2016 Comp Metabolic Dwy705 ALT(SGPT) 18 U/L 02/18/2016 Comp Metabolic Qdt144 BILI T 0.7 mg/dL 02/18/2016 Comp Metabolic Vwq961 ALBUMIN 4.4 g/dL 02/18/2016 Comp Metabolic Wti497 TPRO 6.9 g/dL 02/18/2016 Comp Metabolic Uey878 GLOB 2.5 g/dL 02/18/2016 Comp Metabolic Que003 A/G Ratio 1.7 Ratio 02/18/2016 Comp Metabolic Tee787 Osmo 276 mOsmo 02/18/2016 Lipid Ord30 CHOL [...] 18.8 % 02/18/2016 Cbc With Differential Ord2 [place]% 10.5 % 02/18/2016 Cbc With Differential Ord2 [...] 1.08 K/ul 02/18/2016 Cbc With Differential Ord2 [place] ABS# 0.6 K/ul 02/18/2016 Cbc With Differential Ord2 Eos ABS# 0.0 K/ul 02/18/2016 Cbc With Differential Ord2 Baso ABS# 0.0 K/ul 02/18/2016 Comp Metabolic Uil563 NA 136 mEq/L 06/08/2015 Comp Metabolic Std978 K 3.9 mEq/L 06/08/2015 Comp Metabolic Lhl852 CL 103 mEq/L 06/08/2015 Comp Metabolic Quu188 CO2 25.0 mEq/L 06/08/2015 Comp Metabolic Igp786 ANION GAP 12 06/08/2015 Comp Metabolic Cjp379 GLUCOSE 91 mg/dL 06/08/2015 Comp Metabolic Xvc236 Creat 0.9 mg/dL 06/08/2015 Comp Metabolic Use848 eGFR 68 ml/min/1.73m2 06/08/2015 Comp Metabolic Loy902 BUN 10 mg/dL 06/08/2015 Comp Metabolic Ntv445 B/C Ratio 11.4 Ratio 06/08/2015 Comp Metabolic Efu950 CALCIUM 9.4 mg/dL 06/08/2015 Comp Metabolic Ubs754 ALK PHOS 88 U/L 06/08/2015 Comp Metabolic Ehm074 AST(SGOT) 20 U/L 06/08/2015 Comp Metabolic Rek709 ALT(SGPT) 18 U/L 06/08/2015 Comp Metabolic Tka855 BILI T 0.8 mg/dL 06/08/2015 Comp Metabolic Gxw766 ALBUMIN 4.4 g/dL 06/08/2015 Comp Metabolic Ube072 TPRO 7.0 g/dL 06/08/2015 Comp Metabolic Yst867 GLOB 2.6 g/dL 06/08/2015 Comp Metabolic Biy351 A/G Ratio 1.7 Ratio 06/08/2015 Comp Metabolic Gdf315 Osmo 271 mOsmo 06/08/2015 Tsh Ord6 hTSH [...] Ord2 RDW 14.4 % 06/08/2015 LYME EIA [id number] LYME EIA 0.24 04/25/2014 TULAREM AB [id number] TULAREM AB <1:20 04/24/2014 RMSF IFA 1649082 IGG RMSF <1:16 04/24/2014 RMSF IFA 6678150 IGM RMSF <1:10 04/24/2014 E CHAFF AB 0437553 IGG E CHFF <1:16 04/24/2014 E CHAFF AB [id number] IGM E CHFF <1:10 04/24/2014 ICT OCCULT [id number] ICT OCCULT NEG 10/11/2013 Review of Systems System Result Effective Dates Constitutional recent illness 08/29/2017 Constitutional chills 08/29/2017 [...] 1995 Ears/Nose/Throat oral cavity/pharynx/larynx Overall: no masses 11/05/2013 [...] 1995 Ears/Nose/Throat oral cavity/pharynx/larynx Overall: no masses 10/15/2013 [...] Codes Date ADMIN INFLUENZA VIRUS VAC CPT-4: G0008 06/07/2017 FLU VACC PRSV FREE INC ANTIG CPT-4: 72829 06/07/2017 PPPS, SUBSEQ VISIT CPT- 4: G0439 11/17/2016 TRIAMCINOLONE ACET INJ NOS CPT-4: J3301 09/05/2016 PPPS, SUBSEQ VISIT CPT- 4: G0439 11/13/2015 PNEUMOCOCCAL VACC 13 STEPHANIE IM Formatting Model/CDA Sections, Assigned to/Lila Colon SNOMED CT: 45530672 CPT-4: 38763Ygckcva 11/13/2015 ADMIN PNEUMOCOCCAL VACCINE SNOMED CT: 19606059 CPT-4: G0009 11/13/2015 ROCEPHIN, PER 250 MG CPT- 4: J0696 07/23/2015 URINALYSIS NONAUTO W/O SCOPE CPT-4: 36286 10/10/2014 ROUTINE VENIPUNCTURE CPT- 4: 01662 04/23/2014 Pneumococcal Polysaccharide Vaccine, 23-Valent, Ad CPT-4: 10912 04/15/2014 ADMIN INFLUENZA VIRUS VAC CPT-4: G0008 04/15/2014 FLU VAC NO PRSV 4 STEPHANIE 3 YRS+ CPT-4: 05098 04/15/2014 ADMIN PNEUMOCOCCAL VACCINE SNOMED CT: 82127363 CPT-4: G0009 04/15/2014 THER/PROPH/DIAG INJ SC/IM CPT-4: 87678 02/11/2014 TRIAMCINOLONE ACET INJ NOS CPT-4: J3301 02/11/2014 TRIAMCINOLONE ACET INJ NOS CPT-4: J3301 01/21/2014 INITIAL PREVENTIVE EXAM CPT-4: G0402 09/30/2013 PRESCRIP TRANSMIT VIA ERX SY CPT-4: G8553 03/13/2013 Vital Signs Date Vital 08/29/2017 Blood Pressure 1: 146/80 Code: 8480-6 BMI: 29.5 Code: 75031-1 Heart Rate 1: 68 bpm Height: 5'5" SpO2: 98% Temperature: 36.6 (C) / 97.8 (F) Weight: 177 lbs 06/13/2017 Blood Pressure 1: 138/76 Code: 8480-6 BMI: 29.6 Code: 75096-1 Heart Rate 1: 63 bpm Height: 5'5" SpO2: 95% Weight: 178 lbs 02/16/2017 Blood Pressure 1: 128/80 Code: 8480-6 BMI: 29.9 Code: 73587-2 Heart Rate 1: 77 bpm Height: 5'5" SpO2: 96% Weight: 179 lbs 8 oz 02/06/2017 Blood Pressure 1: 140/80 Code: 8480-6 BMI: 29.8 Code: 02246-2 Heart Rate 1: 72 bpm Height: 5'5" SpO2: 97% Weight: 179 lbs 11/17/2016 Blood Pressure 1: 130/72 Code: 8480-6 BMI: 29.6 Code: 88997-3 Heart Rate 1: 62 bpm Height: 5'5" SpO2: 98% Waist Measure (cm): 91 cm Weight: 178 lbs 10/12/2016 Blood Pressure 1: 128/78 Code: 8480-6 BMI: 28.5 Code: 47128-4 Heart Rate 1: 62 bpm Height: 5'5" SpO2: 97% Weight: 171 lbs 09/05/2016 Blood Pressure 1: 122/70 Code: 8480-6 BMI: 28.0 Code: 90580-3 Heart Rate 1: 65 bpm Height: 5'5" SpO2: 94% Weight: 168 lbs 06/21/2016 Blood Pressure 1: 120/82 Code: 8480-6 BMI: 28.3 Code: 06764-8 Heart Rate 1: 65 bpm Height: 5'5" SpO2: 97% Weight: 170 lbs 05/24/2016 Blood Pressure 1: 136/80 Code: 8480-6 BMI: 28.1 Code: 57057-2 Heart Rate 1: 71 bpm Height: 5'5" SpO2: 96% Weight: 169 lbs 05/10/2016 Blood Pressure 1: 120/82 Code: 8480-6 BMI: 27.6 Code: 26024-1 Heart Rate 1: 86 bpm Height: 5'5" SpO2: 95% Weight: 166 lbs 05/03/2016 Blood Pressure 1: 124/78 Code: 8480-6 BMI: 28.1 Code: 55634-4 Heart Rate 1: 88 bpm Height: 5'5" SpO2: 97% Weight: 169 lbs 11/13/2015 Blood Pressure 1: 130/60 Code: 8480-6 BMI: 30.0 Code: 24256-9 Heart Rate 1: 7 bpm Height: 5'5" Waist Measure (cm): 97 cm Weight: 180 lbs 07/23/2015 Blood Pressure 1: 124/70 Code: 8480-6 BMI: 29.6 Code: 90928-4 Heart Rate 1: 74 bpm Height: 5'5" SpO2: 96% Temperature: 36.7 (C) / 98.1 (F) Weight: 178 lbs 07/06/2015 Blood Pressure 1: 138/78 Code: 8480-6 BMI: 29.6 Code: 91158-3 Heart Rate 1: 84 bpm Height: 5'5" SpO2: 96% Weight: 178 lbs 05/26/2015 Blood Pressure 1: 122/80 Code: 8480-6 BMI: 29.6 Code: 88480-7 Heart Rate 1: 84 bpm Height: 5'5" Weight: 178 lbs 02/16/2015 Blood Pressure 1: 124/82 Code: 8480-6 BMI: 29.0 Code: 96124-9 Heart Rate 1: 68 bpm Height: 5'5" Weight: 174 lbs 12/10/2014 Blood Pressure 1: 112/64 Code: 8480-6 BMI: 28.6 Code: 47087-2 Heart Rate 1: 80 bpm Height: 5'5" Weight: 172 lbs 10/16/2014 Blood Pressure 1: 128/84 Code: 8480-6 Heart Rate 1: 64 bpm Weight: 172 lbs 10/09/2014 Blood Pressure 1: 136/90 Code: 8480-6 BMI: 28.6 Code: 24469-0 Heart Rate 1: 76 bpm Height: 5'5" Weight: 172 lbs 08/26/2014 Blood Pressure 1: 118/72 Code: 8480-6 BMI: 29.0 Code: 23748-4 Heart Rate 1: 76 bpm Height: 5'5" Weight: 174 lbs 05/16/2014 Blood Pressure 1: 110/72 Code: 8480-6 BMI: 29.0 Code: 24216-6 Height: 5'5" Weight: 174 lbs 04/23/2014 Blood Pressure 1: 124/70 Code: 8480-6 BMI: 29.0 Code: 47766-5 Heart Rate 1: 72 bpm Height: 5'5" Weight: 174 lbs 04/15/2014 Temperature: 36.5 (C) / 97.7 (F) 01/21/2014 Blood Pressure 1: 98/62 Code: 8480-6 BMI: 29.0 Code: 53989- 5 Heart Rate 1: 84 bpm Height: 5'5" Temperature: 37.1 (C) / 98.7 (F) Weight: 174 lbs 12/05/2013 Blood Pressure 1: 138/88 Code: 8480-6 BMI: 29.0 Code: 52119-9 Heart Rate 1: 60 bpm Height: 5'5" Weight: 174 lbs 11/05/2013 Blood Pressure 1: 118/80 Code: 8480-6 BMI: 28.8 Code: 91773-3 Heart Rate 1: 76 bpm Height: 5'5" Weight: 173 lbs 10/15/2013 Blood Pressure 1: 120/78 Code: 8480-6 BMI: 29.1 Code: 34938-4 Heart Rate 1: 88 bpm Height: 5'5" Weight: 175 lbs 09/30/2013 Blood Pressure 1: 112/84 Code: 8480-6 BMI: 29.1 Code: 53180-2 Heart Rate 1: 68 bpm Height: 5'5" Weight: 175 lbs 03/13/2013 Blood Pressure 1: 112/84 Code: 8480-6 BMI: 28.6 Code: 01863-7 Heart Rate 1: 64 bpm Height: 5'5" Weight: 173 lbs 10/04/2012 Blood Pressure 1: 120/72 Code: 8480-6 BMI: 28.0 Code: 23109-0 Heart Rate 1: 64 bpm Height: 5'5" Weight: 169 lbs 08/22/2011 Blood Pressure 1: 134/84 Code: 8480-6 BMI: 27.5 Code: 20114-1 Heart Rate 1: 68 bpm Height: 5'5" Respiratory Rate: 16 bpm Weight: 166 lbs 8 oz 06/17/2011 Blood Pressure 1: 120/76 Code: 8480-6 BMI: 27.0 Code: 23500-2 Heart Rate 1: 58 bpm Height: 5'5" Respiratory Rate: 16 bpm Weight: 163 lbs Functional Status No Functional Status data History of Present Illness Symptom Name Status Result Effective Date Notes cough Quality acute 08/29/2017 None cough Onset [...] Codes Date EST. PATIENT, LEVEL III Diagnosis: Acute laryngopharyngitis[ICD10: J06.0] Diagnosis: Other allergic rhinitis[ICD10: J30.89] Gina Alvarado MD, [facility] CPT- 4: 03370 08/29/2017 ([id number]) 85609 EST. PATIENT, LEVEL IV Diagnosis: Postprocedural hypothyroidism[ICD10: E89.0] Diagnosis: Major depressive disorder, recurrent, moderate[ICD10: F33.1] Diagnosis: Generalized anxiety disorder[ICD10: F41.1] Elina Alvarado MD, [facility] CPT-4: 45428 06/13/2017 [id number]) 31520 EST. PATIENT, LEVEL IV Diagnosis: Pelvic and perineal pain[ICD10: R10.2] Diagnosis: Acute vaginitis[ICD10: N76.0] [facility] CPT-4: 20325 02/16/2017 [id number]) 45184 EST. PATIENT, LEVEL III Diagnosis: Postprocedural hypothyroidism[ICD10: E89.0] Diagnosis: Major depressive disorder, recurrent, moderate[ICD10: F33.1] [facility] CPT-4: 02616 02/06/2017 [id number]) 83096 EST. PATIENT, LEVEL III Diagnosis: Generalized anxiety disorder[ICD10: F41.1] Elina Alvarado MD, [facility] CPT-4: 60129 10/12/2016 ([id number]) 56475 EST. PATIENT, LEVEL III Diagnosis: Cough[ICD10: R05] Diagnosis: Acute upper respiratory infection, unspecified[ICD10: J06.9] Suma Alvarado MD, [facility] CPT-4: 30205 09/05/2016 ([id number]) 74068 EST. PATIENT, LEVEL III Diagnosis: Generalized anxiety disorder[ICD10: F41.1] Diagnosis: Major depressive disorder, recurrent, moderate[ICD10: F33.1] Diagnosis: Postprocedural hypothyroidism[ICD10: E89.0] Elina Alvarado MD, [facility] CPT-4: 86906 06/21/2016 ([id number]) 63099 EST. PATIENT, LEVEL III Diagnosis: Major depressive disorder, recurrent, moderate[ICD10: F33.1] Elina Alvarado MD, [facility] CPT-4: 99386 05/24/2016 ([id number]) 07816 EST. PATIENT, LEVEL III Diagnosis: Major depressive disorder, recurrent, moderate[ICD10: F33.1] Elina Alvarado MD, [facility] CPT-4: 19278 05/10/2016 ([id number]) 37442 EST. PATIENT, LEVEL III Diagnosis: Generalized anxiety disorder[ICD10: F41.1] Diagnosis: Major depressive disorder, recurrent, moderate[ICD10: F33.1] Suma Alvarado MD, [facility] CPT-4: 91461 05/03/2016 ([id number]) 93760 EST. PATIENT, LEVEL III Diagnosis: Cough[ICD10: R05] Diagnosis: Acute upper respiratory infection, unspecified[ICD10: J06.9] Suma Alvarado MD, [facility] CPT-4: 49027 07/23/2015 ([id number]) 83670 EST. PATIENT, LEVEL III Diagnosis: Hypothyroidism, unspecified[ICD10: E03.9] Diagnosis: Generalized anxiety disorder[ICD10: F41.1] Diagnosis: Other depressive episodes[ICD10: F32.8] Elina Alvarado MD, [facility] CPT-4: 65712 07/06/2015 ([id number]) 12616 EST. PATIENT, LEVEL IV Diagnosis: Generalized anxiety disorder[ICD10: F41.1] Diagnosis: Major depressive disorder, recurrent, unspecified[ICD10: F33.9] Elina Alvarado MD, [facility] CPT-4: 81620 05/26/2015 ([id number]) 62008 EST. PATIENT, LEVEL II Diagnosis: 2Nd degree burn of multiple fingers of right hand not including thumb[ICD9: 944.23] Suma Alvarado MD, [facility] CPT-4: 04948 02/16/2015 ([id number]) 32541 EST. PATIENT, LEVEL IV Diagnosis: Hammertoe[ICD9: 735.4] Diagnosis: Foot pain[ICD9: 729.5] Diagnosis: HYPOTHYROIDISM[ICD9: 244.9] Elina Alvarado MD, [facility] CPT-4: 54820 12/10/2014 ([id number]) 60202 EST. PATIENT, LEVEL III Diagnosis: Urinary incontinence[ICD9: 788.30] Diagnosis: Pelvic pain in female[ICD9: 625.9] Elina Alvarado MD, [facility] CPT- 4: 23435 10/16/2014 ([id number]) 83750 EST. PATIENT, LEVEL III Diagnosis: Urinary incontinence[ICD9: 788.30] Diagnosis: Pelvic pain in female[ICD9: 625.9] Suma Alvarado MD [facility] CPT- 4: 26608 10/09/2014 ([id number]) 02618 EST. PATIENT, LEVEL III Diagnosis: HYPOTHYROIDISM[ICD9: 244.9] Elina Alvarado MD [facility] CPT-4: 23265 08/26/2014 ([id number]) 05543 EST. PATIENT, LEVEL III Diagnosis: Neck pain[ICD9: 723.1] Diagnosis: Muscle tension headache[ICD9: 307.81] Suma Alvarado MD [facility] CPT-4: 07124 05/16/2014 ([id number]) 85399 EST. PATIENT, LEVEL IV Diagnosis: Arthropod bite[ICD9: 919.4] Diagnosis: Poison diana dermatitis[ICD9: 692.6] Diagnosis: Arthralgia[ICD9: 719.40] Diagnosis: Myalgia[ICD9: 729.1] Elina Alvarado MD, [facility] CPT-4: 45029 04/23/2014 ([id number]) 43675 EST. PATIENT, LEVEL III Diagnosis: ACUTE URI[ICD9: 465.9] Diagnosis: COUGH[ICD9: 786.2] Suma Alvarado MD, [facility] CPT-4: 90614 01/21/2014 ([id number]) 55057 EST. PATIENT, LEVEL III Diagnosis: HYPOTHYROIDISM[ICD9: 244.9] Diagnosis: GENERALIZED ANXIETY DISEASE[ICD9: 300.02] Elina Alvarado MD, [facility] CPT-4: 73971 12/05/2013 ([id number]) 88435 EST. PATIENT, LEVEL III Diagnosis: GENERALIZED ANXIETY DISEASE[ICD9: 300.02] Diagnosis: DEPRESSIVE DISORDER NEC[ICD9: 311] Elina Alvarado MD, [facility] CPT- 4: 07568 11/05/2013 ([id number]) 29347 EST. PATIENT, LEVEL III Diagnosis: HYPOTHYROIDISM[ICD9: 244.9] Elina Alvarado MD, [facility] CPT-4: 38650 10/15/2013 ([id number]) Miscellaneous no charge Diagnosis: Colon cancer screening[ICD9: V76.51] Elina Alvarado MD, [facility] CPT- 4: 89741 10/10/2013 ([id number]) 93131 EST. PATIENT, LEVEL IV Diagnosis: HYPOTHYROIDISM[ICD9: 244.9] Diagnosis: DEPRESSIVE DISORDER NEC[ICD9: 311] Diagnosis: GENERALIZED ANXIETY DISEASE[ICD9: 300.02] Diagnosis: HYPERLIPIDEMIA[ICD9: 272.4] Elina Alvarado MD, [facility] CPT-4: 19485 03/13/2013 ([id number]) 33543 EST. PATIENT, LEVEL IV Diagnosis: HYPERLIPIDEMIA[ICD9: 272.4] Diagnosis: HYPOTHYROIDISM[ICD9: 244.9] Diagnosis: GENERALIZED ANXIETY DISEASE[ICD9: 300.02] Diagnosis: DEPRESSIVE DISORDER NEC[ICD9: 311] Elina Alvarado MD, [facility] CPT- 4: 05852 10/04/2012 ([id number]) 60819 EST. PATIENT, LEVEL III Diagnosis: VICTOR HUGO (generalized anxiety disorder)[ICD9: 300.02] Diagnosis: Chronic depression[ICD9: 311] [facility] CPT-4: 16361 08/22/2011 48162 EST. PATIENT, LEVEL IV Diagnosis: CHEST PAIN NEC[ICD9: 786.59] Diagnosis: HYPERLIPIDEMIA[ICD9: 272.4] Diagnosis: POSTSURGICAL HYPOTHYROIDISM[ICD9: 244.0] [facility] CPT-4: 35553 06/17/2011 Plan of Care Planned Activity Notes Codes Status Date Visit Plan: URI - Pt advised to [...] in the nasal steroid allergy spray. 08/29/2017 Patient Education: Patient Medication Summary Completed [...] with counseling. 06/13/2017 Appointment: Elina Alvarado WPtel: [address] [place], [place] [id number] (15 min) Moderate 06/13/2017 Patient Education: Patient Medication Summary Completed 06/13/2017 Appointment: Injection 06/07/2017 Patient Education: Patient Medication Summary Completed 06/07/2017 Visit Plan: Pelvic pain-UA negative-pap done today in the office- will start patient on flagyl for bacterial vaginosis-instructed patient to call if symptoms do not resolve or if any worse. Patient verbalized understanding of plan. 02/16/2017 Appointment: Suma Choi WPtel: [phone] [phone] (30 min) Complex 02/16/2017 Patient Education: Patient [...] Alvarado WPtel: [phone] [facility] (15 min) Moderate 02/06/2017 Patient Education: Patient [...] surrogate. 11/17/2016 Appointment: Gina Kern WPtel: [phone] [facility] [facility] - Annual Wellness Visit 11/17/2016 [...] current medications. 10/12/2016 Appointment: Elina Alvarado WPtel: [address] [place], [place] [phone] (15 min) Moderate 10/12/2016 Patient Education: Patient [...] : J06.9 09/05/2016 Appointment: Suma Choi WPtel: [address] [place], [place] [phone] [place] (10 min) Simple 09/05/2016 Patient Education: [...] with lexapro 06/21/2016 Appointment: Elina Alvarado WPtel: [address] [place], [place] [phone] (15 min) Moderate 06/21/2016 Patient Education: Patient Medication Summary Completed 06/21/2016 Visit Plan: Depression - improved with lexapro - continue with current treatment and counseling. 05/24/2016 [facility]ment[phone] ([facility] min) Moderate 05/24/2016 Patient Education: Patient Medication Summary Completed 05/24/2016 Visit Plan: Depression - improved on the Lexapro - stop ativan - start on xanax 05/10/2016 Appointment: Elina Alvarado WPtel: [facility] (15 min) Moderate 05/10/2016 Patient Education: Patient [...] Summary Completed 05/03/2016 Appointment: Suma Choi WPtel: [phone] [place] (15 min) Moderate 02/26/2016 Visit [...] and to maintain independece in the home. Siusjzjjwt-bnkrtnqmhkpg-xljmrw to wellbutrin Pneumonia 13 administered today in [...] and to maintain independece in the home. Tnxlmqxdvv-ormjqvtdevsd-izfiyq to wellbutrin Pneumonia 13 administered today in the office 11/13/2015 Appointment: [facility] - Annual Wellness Visit 11/13/2015 Patient Education: Patient Medication Summary Completed 11/13/2015 Patient Education: Obesity Completed 11/13/2015 Care Plan: SCREENINGMAMMOGRAPHYDIGITAL [facility] : 10047-5 Ordered 11/13/2015 Appointment: Lab Draw 08/10/2015 Visit [...] current medications. 07/06/2015 Appointment: Elina Alvarado WPtel: [address] [place], [place] [phone] (30 min) Complex 07/06/2015 Patient Education: Patient [...] upon discharge. 12/10/2014 Appointment: Elina Alvarado WPtel: [address] [place], [place] [phone] Surgical Clearance 12/10/2014 Patient Education: Patient Medication Summary Completed 12/10/2014 Visit Plan: Urinary incontinence and Pelvic discomfort - recommended pt to have evaluation by Dr. Brandt - pt agreeable to referral. Pt is to call if abdominal pain does not improve. 10/16/2014 Appointment: Elina Alvarado WPtel: [facility] Follow up 10/16/2014 Patient Education: Patient Medication Summary Completed 10/16/2014 Care Plan: Referral Order SNOMED-CT : [id number] Ordered 10/16/2014 Patient Education: Patient Medication Summary Completed 10/10/2014 Visit Plan: Pelvic pain-history of mesh implant-recommend CT abd/pelvis to evaluate for any abnormality-refer to Dr Woods if pain does not improve Urinary incontinence-check UA with C&S if indicated 10/09/2014 Patient Education: Patient Medication Summary Completed 10/09/2014 Care Plan: CT ABD & PELV 1/> [facility] : 31750-1 Ordered 10/09/2014 Visit Plan: Hypothyroidism - pt with chronic hypothyroidism, continue with current medication, will monitor pt to signs or symptoms of lack of adequate supplementation. Pt is to continue with current dose of medication unless directed otherwise. Check labs at regular intervals wither q 3 months or q 6 months based on previous levels of control. 08/26/2014 Appointment: Elina Alvaraod WPtel: [facility]9 [facility] Follow up 08/26/2014 Patient Education: Patient Medication [...] with screening. 04/23/2014 Appointment: Elina Alvarado WPtel: [address] [place], [place] [phone] Sick 04/23/2014 Patient Education: Patient Medication Summary Completed 04/23/2014 Care Plan: Referral Order SNOMED-CT : [id number] Ordered 04/23/2014 Appointment: Nurse Visit 04/15/2014 Patient Education: Patient Medication Summary Completed 04/15/2014 Appointment: Elina Alvarado WPtel: [address] [place], [place] [phone] [place] Injection 02/11/2014 Patient Education: Patient Medication [...] current treatment. 12/05/2013 Appointment: Elina Alvarado WPtel: [facility] Follow up 12/05/2013 Patient Education: Patient Medication [...] medications. 11/05/2013 Appointment: [phone] [facility] 11/05/2013 Patient Education: [...] control. 10/15/2013 Appointment: [facility]el[phone] [facility] [facility] 10/15/2013 Patient Education: Patient Medication [...] surrogate. 09/30/2013 Appointment: Elina Alvarado WPtel: [phone] [facility] [facility] - Initial Preventive Physical Exam 09/30/2013 Patient Education: Patient Medication Summary Completed 09/30/2013 Appointment: [facility]el[phone] [facility] [facility] - Initial Preventive Physical Exam [...] use. 03/13/2013 Appointment: [facility]Ptel[phone] [facility] Follow up 03/13/2013 Patient Education: [...] current medications. 10/04/2012 Appointment: [facility]el[phone] [facility] Follow [facility] 10/04/2012 Patient Education: [...] attacks. 08/22/2011 Appointment: [facility]ado [facility]Ptel[phone] [facility] Other 08/22/2011 Patient Education: Patient Medication [...] THYROID ULTRASOUND 06/17/2011 Appointment: [facility]ado [facility]Ptel[facility] [phone] [facility] Other 06/17/2011 Patient Education: Patient Medication Summary Completed 06/17/2011 Referral: Rikki Julio [place] WPtel: Referral Appointment Requested Referral: Dr. Phelps [...] and to maintain independece in the home. Wepykyihdg-oeoltzmajkav-lgntue to wellbutrin Pneumonia 13 administered today in [...] and to maintain independece in the home. Tufyiyfqsq-wadphhqotwsf-vnnyhj to wellbutrin Pneumonia 13 administered today in [...] medications. Symptoms stable, continue with counseling. . Tick Bite - pt given [...]
--- OUTSIDE RECORDS SUMMARY | 2018-12-27 10:11 | XMS REPORT | CCD ---
Author Author [facility] Organization [facility] Address [address] [place] [address] Phone Care Team Providers Care Solution Architect Name Role Phone PP Unavailable CCM Unavailable Summary Purpose Interface Exchange Insurance Providers Payer name Policy type / Coverage type Covered republican ID Effective Begin Date Effective End Date WPS Medicare Part B [id number] 2014 Unknown [facility] [id number] 2014 Unknown Family history Sister Diagnosis Age [...] Description Effective Dates Tobacco history SNOMED CT: 5888643 Former smoker quit 2 years ago, social smoker, 1 pack per month 200709/30/2013 Employment Unknown 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 03/13/2013 Marital status Unknown 06/17/[address]: 047666 Currently drinks alcohol 2 beers/week 06/17/2011 Has [...] 02/16/2017 Unknown Pelvic and perineal pain ICD-9: [id number] ICD-10: R10.2 Active 02/16/2017 Unknown Encounter for [...] 02/16/2017 Active Pelvic and perineal pain ICD-9: [id number] ICD-10: R10.2 02/16/2017 Active Encounter for general [...] Fill Instructions Tamiflu 75 mg capsule RxNorm: 771537 1 Capsule(s) PO BID 08/29/2017 09/02/2017 Inactive Synthroid 112 mcg tablet RxNorm: 974227 1 Tablet(s) daily 08/14/2017 12/05/2017 Active fyi - medication changed, refill x 6 - #30 pills Synthroid 112 mcg tablet RxNorm: 880215 1 Tablet(s) daily 06/13/2017 08/13/2017 Inactive fyi - medication changed, refill x 6 - #30 pills Lexapro 20 mg tablet RxNorm: 720312 TAKE ONE TABLET BY MOUTH DAILY 06/09/2017 11/05/2017 Active Synthroid 112 mcg tablet RxNorm: 199943 TAKE 1 TABLET BY MOUTH DAILY EXCEPT TAKE 1/2 TABLET ON MONDAY, MONDAY, AND Monday05/22/2017 06/12/2017 Inactive Lipitor 10 mg tablet RxNorm: 385263 TAKE ONE TABLET BY MOUTH EVERY DAY 03/08/2017 05/31/2018 Active Flagyl 500 mg tablet RxNorm: 673064 1 Tablet(s) PO TID 02/16/2017 02/22/2017 Inactive Synthroid 112 mcg tablet RxNorm: 150608 TAKE 1 TABLET BY MOUTH DAILY EXCEPT FOR TAKE 1/2 TABLET ON MONDAY, MONDAY, AND Monday12/23/2016 04/13/2017 Inactive Xanax 0.5 mg tablet RxNorm: 331970 1 Tablet(s) PO QID as needed anxiety 12/23/2016 03/22/2017 Inactive Lexapro 20 mg tablet RxNorm: 802189 TAKE ONE TABLET BY MOUTH DAILY 11/29/2016 05/27/2017 Inactive Zithromax Z-Que 250 mg tablet RxNorm: 083780 1 Tablet(s) PO UD 09/05/2016 09/09/2016 Inactive zpack Kenalog 40 mg/mL suspension for injection RxNorm: 9552408 1 Milliliter(s) Inj 09/05/2016 09/05/2016 Inactive Lipitor 10 mg tablet RxNorm: 402665 TAKE ONE TABLET BY MOUTH EVERY DAY 08/30/2016 02/25/2017 Inactive Ativan 1 mg tablet RxNorm: 443785 1 Tablet(s) PO Q6 PRN as needed TAKE ONE TABLET BY MOUTH THREE TIMES A DAY OR EVERY 6 HOURS NEEDED FOR ANXIETY 08/30/2016 12/22/2016 Inactive Synthroid 112 mcg tablet RxNorm: 909005 1 Tablet(s) PO daily except one-half tab on Mon/Mon/Sat 08/23/2016 12/12/2016 Inactive will refill when needed Lexapro 20 mg tablet RxNorm: 110944 TAKE ONE TABLET BY MOUTH DAILY 08/02/2016 11/28/2016 Inactive Synthroid 112 mcg tablet RxNorm: 837407 1 Tablet(s) PO daily except 1/2 tab wed and sat 05/25/2016 08/22/2016 Inactive will refill when needed Xanax 0.5 mg tablet RxNorm: 713088 1 Tablet(s) PO QID as needed anxiety 05/10/2016 08/29/2016 Inactive Lexapro 20 mg tablet RxNorm: 120431 1 Tablet(s) PO daily 05/03/2016 07/31/2016 Inactive 1/2 tab x 1 week then increase to a full pill daily buspirone 5 mg tablet RxNorm: 244828 TAKE ONE-HALF TABLET BY MOUTH TWICE A DAY 03/15/2016 05/02/2016 Inactive Synthroid 112 mcg tablet RxNorm: 481666 1 Tablet(s) PO daily 02/25/2016 05/24/2016 Inactive Ativan 1 mg tablet RxNorm: 862618 Tablet(s) TAKE ONE TABLET BY MOUTH THREE TIMES A DAY OR EVERY 6 HOURS NEEDED FOR ANXIETY 02/04/2016 05/08/2016 Inactive Synthroid 125 mcg tablet RxNorm: 717829 TAKE ONE TABLET BY MOUTH TWICE WEEKLY 01/11/2016 02/24/2016 Inactive Synthroid 112 mcg tablet RxNorm: 571905 TAKE ONE TABLET BY MOUTH FIVE DAYS A WEEK 01/11/2016 02/24/2016 Inactive Wellbutrin 75 mg tablet RxNorm: 396406 TAKE ONE TABLET BY MOUTH TWICE A DAY 01/11/2016 05/02/2016 Inactive Ativan 1 mg tablet RxNorm: 435197 TAKE ONE TABLET BY MOUTH THREE TIMES A DAY OR EVERY 6 HOURS NEEDED 12/03/2015 12/27/2015 Inactive Lipitor 10 mg tablet RxNorm: 680728 TAKE ONE TABLET BY MOUTH EVERY DAY 12/03/2015 08/28/2016 Inactive Ativan 1 mg tablet RxNorm: 561851 Tablet(s) TAKE ONE TABLET BY MOUTH THREE TIMES A DAY AND TAKE ONE TABLET BY MOUTH EVERY 6 HOURS NEEDED FOR ANXIETY 12/03/2015 12/02/2015 Inactive (Response to an electronic controlled substance refill request - RxReferenceNumber: [id number]) Wellbutrin 75 mg tablet RxNorm: 849769 1 Tablet(s) PO BID 11/13/2015 01/10/2016 Inactive Ativan 1 mg tablet RxNorm: 768097 Tablet(s) TAKE ONE TABLET BY MOUTH THREE TIMES A DAY AND TAKE ONE TABLET BY MOUTH EVERY 6 HOURS NEEDED FOR ANXIETY 09/23/2015 10/30/2015 Inactive (Response to an electronic controlled substance refill request - RxReferenceNumber: [id number]) buspirone 5 mg tablet RxNorm: 738192 TAKE ONE-HALF TABLET BY MOUTH TWICE A DAY 08/18/2015 03/01/2016 Inactive ceftriaxone 500 mg solution for injection RxNorm: 4959241 Inj 07/23/2015 07/23/2015 Inactive Zithromax Z-Que 250 mg tablet RxNorm: 358261 1 Tablet(s) PO UD 07/23/2015 07/27/2015 Inactive ZPACK buspirone 5 mg tablet RxNorm: 226397 1 Tablet(s) PO daily 07/06/2015 10/03/2015 Inactive buspirone 5 mg tablet RxNorm: 790578 1/2 Tablet(s) PO BID 05/26/2015 07/05/2015 Inactive Lipitor 10 mg tablet RxNorm: 990076 TAKE ONE TABLET BY MOUTH EVERY DAY 04/23/2015 10/19/2015 Inactive Ativan 1 mg tablet RxNorm: 434401 Tablet(s) TAKE ONE TABLET BY MOUTH THREE TIMES A DAY AND TAKE ONE TABLET BY MOUTH EVERY 6 HOURS NEEDED FOR ANXIETY 02/23/2015 04/01/2015 Inactive (Response to an electronic controlled substance refill request - RxReferenceNumber: [id number]) Synthroid 125 mcg tablet RxNorm: 855483 1 Tablet(s) PO UD twice weekly 12/10/2014 06/07/2015 Inactive Synthroid 112 mcg tablet RxNorm: 826686 1 Tablet(s) PO UD TAKE ONE TABLET BY MOUTH 5 days a week 12/10/2014 12/04/2015 Inactive Lexapro 20 mg tablet RxNorm: 936398 1 Tablet(s) PO daily 11/26/2014 11/12/2015 Inactive Lipitor 10 mg tablet RxNorm: 902579 TAKE ONE TABLET BY MOUTH EVERY DAY 10/21/2014 04/18/2015 Inactive amoxicillin 500 mg capsule RxNorm: 572702 1 Capsule(s) PO TID 10/15/2014 10/21/2014 Inactive take probiotic BID x 7 days during abt period amoxicillin 500 mg capsule RxNorm: 290986 1 Capsule(s) PO TID 10/15/2014 10/14/2014 Inactive take probiotic BID x 7 days during abt period Ativan 1 mg tablet RxNorm: 306862 TAKE ONE TABLET BY MOUTH THREE TIMES A DAY AND TAKE ONE TABLET BY MOUTH EVERY 6 HOURS NEEDED FOR ANXIETY 08/21/2014 09/28/2014 Inactive (Response to an electronic controlled substance refill request - RxReferenceNumber: [id number]) Ativan 1 mg tablet RxNorm: 608950 1 Tablet(s) PO tid and Q6 PRN as needed 08/18/2014 08/21/2014 Inactive doxycycline hyclate 100 mg tablet RxNorm: 749874 1 Tablet(s) PO BID 04/23/2014 05/25/2015 Inactive prednisone 10 mg tablets in a dose pack RxNorm: 480373 1 Tablet(s) PO 02/14/2014 05/25/2015 Inactive Kenalog 40 mg/mL suspension for injection RxNorm: 6942173 1 Milliliter(s) Inj 02/11/2014 02/11/2014 Inactive Keflex 500 mg capsule RxNorm: 758976 1 Capsule(s) PO TID 01/21/2014 01/27/2014 Inactive Kenalog 40 mg/mL suspension for injection RxNorm: 7799434 Milliliter(s) Inj 01/21/2014 01/21/2014 Inactive Synthroid 112 mcg tablet RxNorm: 767997 1 Tablet(s) PO daily TAKE ONE TABLET BY MOUTH EVERY DAY 12/05/2013 11/29/2014 Inactive Ativan 1 mg tablet RxNorm: 236022 1 Tablet(s) PO Q6 PRN 11/05/2013 02/02/2014 Inactive Lexapro 20 mg tablet RxNorm: 929649 1 Tablet(s) PO daily 11/05/2013 11/04/2013 Inactive Lexapro 20 mg tablet RxNorm: 750762 1 Tablet(s) PO daily 11/05/2013 10/30/2014 Inactive Lipitor 10 mg tablet RxNorm: 818859 1 Tablet(s) PO QPM TAKE ONE TABLET BY MOUTH EVERY DAY 09/30/2013 10/20/2014 Inactive Lexapro 20 mg tablet RxNorm: 172538 1 Tablet(s) PO daily 09/30/2013 11/04/2013 Inactive Synthroid 125 mcg tablet RxNorm: 133420 1 Tablet(s) PO daily 09/10/2013 12/04/2013 Inactive Synthroid 100 mcg tablet RxNorm: 363722 1 Tablet(s) PO daily TAKE ONE TABLET BY MOUTH EVERY DAY 09/06/2013 09/09/2013 Inactive Lipitor 10 mg tablet RxNorm: 765802 Tablet(s) PO TAKE ONE TABLET BY MOUTH EVERY DAY 08/15/2013 09/29/2013 Inactive Synthroid 100 mcg tablet RxNorm: 712781 1 Tablet(s) PO daily TAKE ONE TABLET BY MOUTH EVERY DAY 04/26/2013 09/05/2013 Inactive Ativan 1 mg tablet RxNorm: 495352 1 Tablet(s) PO Q6 PRN 03/13/2013 No Stop Date Active Synthroid 100 mcg tablet RxNorm: 152345 1 Tablet(s) PO daily TAKE ONE TABLET BY MOUTH EVERY DAY 03/13/2013 04/25/2013 Inactive Lexapro 20 mg tablet RxNorm: 874016 1/2 Tablet(s) PO BID 03/13/2013 09/29/2013 Inactive Synthroid 112 mcg tablet RxNorm: 369181 Tablet(s) PO TAKE ONE TABLET BY MOUTH EVERY DAY 01/08/2013 03/12/2013 Inactive Lexapro 20 mg tablet RxNorm: 518119 Tablet(s) PO TAKE 1/2 TABLET EVERY MORNING AND TAKE ONE TABLET BY MOUTH AT BEDTIME 10/18/2012 03/12/2013 Inactive Lipitor 20 mg tablet RxNorm: 446729 1/2 Tablet(s) PO daily 08/20/2012 02/04/2013 Inactive Lipitor 10 mg tablet RxNorm: 364249 1 Tablet(s) PO daily 05/23/2012 08/19/2012 Inactive Synthroid 112 mcg tablet RxNorm: 024675 1 Tablet(s) PO daily 12/16/2011 01/07/2013 Inactive Synthroid 112 mcg Tab RxNorm: 570811 1 Tablet(s) PO daily 12/16/2011 12/15/2011 Inactive Lipitor 10 mg tablet RxNorm: 955874 1 Tablet(s) PO daily 12/15/2011 05/22/2012 Inactive Synthroid 112 mcg Tab RxNorm: 158401 1 Tablet(s) PO every other day 11/09/2011 12/15/2011 Inactive every other day Synthroid 112 mcg Tab RxNorm: 724708 1 Tablet(s) PO every other day 10/21/2011 11/08/2011 Inactive every other day Synthroid 125 mcg Tab RxNorm: 176434 1 Tablet(s) PO every other day 10/21/2011 12/16/2011 Inactive every other day Lexapro 20 mg tablet RxNorm: 643763 1.5 Tablet(s) PO daily 1/2 pill in AM and 1 pill at bedtime 09/22/2011 04/18/2012 Inactive 1/2 q am 1 q hs diazepam 5 mg Tab RxNorm: 912801 1 Tablet(s) PO daily 1 tab bid prn 09/21/2011 05/17/2012 Inactive Lexapro 20 mg Tab RxNorm: 453998 1.5 Tablet(s) PO daily 1/2 pill in AM and 1 pill at bedtime 08/22/2011 09/21/2011 Inactive diazepam 5 mg Tab RxNorm: 090627 1 Tablet(s) PO daily 1 tab bid prn 06/20/2011 09/20/2011 Inactive diazepam 5 mg Tab RxNorm: 809309 1 Tablet(s) PO daily 1 tab bid prn 06/20/2011 06/19/2011 Inactive diazepam 5 mg Tab RxNorm: 202498 1 Tablet(s) PO daily 1 tab bid prn 06/17/2011 06/19/2011 Inactive Lipitor 10 mg Tab RxNorm: 520021 1 Tablet(s) PO daily 05/31/2011 11/26/2011 Inactive diazepam 5 mg Tab RxNorm: 635267 1 Tablet(s) PO BID 1 tab bid prn 04/21/2011 05/20/2011 Inactive Calcium 600 + D(3) Oral RxNorm: Oral No Start Date Active Menest 0.625 mg Tab RxNorm: 603519 1 Tablet(s) PO daily No Start Date 06/16/2011 Inactive Synthroid 125 mcg tablet RxNorm: 158906 Tablet(s) PO No Start Date 09/09/2013 Inactive Ativan 1 mg tablet RxNorm: 256803 1 Tablet(s) PO Q6 PRN No Start Date 08/21/2011 Inactive aspirin 81 mg Tab, Delayed Release RxNorm: 6193992 1 Tablet(s) PO daily No Start Date 09/29/2013 Inactive Lexapro 10 mg Tab RxNorm: 317180 1 Tablet(s) PO daily No Start Date 08/22/2011 Inactive prednisone 10 mg tablets in a dose pack RxNorm: 690260 1 Tablet(s) PO No Start Date 02/13/2014 Inactive Synthroid 112 mcg Tab RxNorm: 809659 Tablet(s) PO tu/th/sat/sun No Start Date 10/20/2011 Inactive lorazepam 1 mg Tab RxNorm: 056263 Tablet(s) PO Q6 PRN No Start Date 11/04/2013 Inactive Lipitor 20 mg tablet RxNorm: 156521 1/2 Tablet(s) PO daily No Start Date 08/20/2012 Inactive Vitamin D2 oral RxNorm: oral No Start Date 09/29/2013 Inactive Synthroid 125 mcg Tab RxNorm: 792898 1 Tablet(s) PO No Start Date 10/20/2011 Inactive synthroid 112 mcg tue thur sat sun Medication Administered Medication Codes Instructions Start Date Status Kenalog 40 mg/mL suspension for injection RxNorm: 8535198 1Milliliter 09/05/2016 No longer Active ceftriaxone 500 mg solution for injection RxNorm: 5165165 07/23/2015 No longer Active Kenalog 40 mg/mL suspension for injection RxNorm: 4890102 1Milliliter 02/11/2014 No longer Active Kenalog 40 mg/mL suspension for injection RxNorm: 5896298 Milliliter 01/21/2014 No longer Active Immunizations Vaccine Codes Date Status Influenza CVX: 141 06/07/2017 completed Pneumococcal (Adult) CVX: 133 11/13/2015 completed Influenza CVX: 141 04/15/2014 completed Pneumococcal (Adult) CVX: 33 04/15/2014 completed PPD Unknown 10/10/2013 completed Influenza CVX: 141 09/30/2013 completed Assessments Condition Codes Effective Dates Other allergic rhinitis ICD-10: J30.89 ICD-9: 477.8 08/29/2017 Acute laryngopharyngitis ICD-10: J06.0 ICD-9: 465.0 08/29/2017 Generalized anxiety disorder ICD-10: F41.1 ICD-9: 300.02 06/13/2017 Major depressive disorder, recurrent, moderate ICD-10: F33.1 ICD-9: 296.32 06/13/2017 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 ICD-9: 244.0 06/13/2017 Encounter for immunization ICD-10: Z23 ICD-9: V04.81 06/07/2017 Pelvic and perineal pain ICD-10: R10.2 ICD-9: [id number] 02/16/2017 Acute vaginitis ICD-10: N76.0 ICD-9: 623.5 [...] hTSH II 4.83 uIU/mL 06/07/2017 Comp Metabolic Ygv922 NA 141 mEq/L 06/07/2017 Comp Metabolic Irl487 K 4.3 mEq/L 06/07/2017 Comp Metabolic Kbr287 CL 106 mEq/L 06/07/2017 Comp Metabolic Wmm969 CO2 26.0 mEq/L 06/07/2017 Comp Metabolic Akb142 ANION GAP 13 06/07/2017 Comp Metabolic Nnn977 GLUCOSE 93 mg/dL 06/07/2017 Comp Metabolic Izd182 Creat 0.9 mg/dL 06/07/2017 Comp Metabolic Tjx014 eGFR 65 ml/min/1.73m2 06/07/2017 Comp Metabolic Upc020 BUN 10 mg/dL 06/07/2017 Comp Metabolic Ubj224 B/C Ratio 11.0 Ratio 06/07/2017 Comp Metabolic Hca944 CALCIUM 8.9 mg/dL 06/07/2017 Comp Metabolic Sbw612 ALK PHOS 69 U/L 06/07/2017 Comp Metabolic Dem701 AST(SGOT) 18 U/L 06/07/2017 Comp Metabolic Oaw610 ALT(SGPT) 15 U/L 06/07/2017 Comp Metabolic Szt020 BILI T 0.5 mg/dL 06/07/2017 Comp Metabolic Pkp804 ALBUMIN 4.1 g/dL 06/07/2017 Comp Metabolic Asf215 TPRO 6.5 g/dL 06/07/2017 Comp Metabolic Way213 GLOB 2.4 g/dL 06/07/2017 Comp Metabolic Upb427 A/G Ratio 1.7 Ratio 06/07/2017 Comp Metabolic Emv515 Osmo 280 mOsmo 06/07/2017 Cbc With Differential [...] 30.7 pg 06/07/2017 Cbc With Differential Ord2 [place]% 9.1 % 06/07/2017 Cbc With Differential Ord2 [...] 1.62 K/ul 06/07/2017 Cbc With Differential Ord2 [place] ABS# 0.5 K/ul 06/07/2017 Cbc With Differential Ord2 Eos ABS# 0.2 K/ul 06/07/2017 Cbc With Differential Ord2 Baso ABS# 0.0 K/ul 06/07/2017 Free T4 Uuh787 FREE T4 0.92 ng/dL 06/07/2017 Tsh Ord6 hTSH II 1.07 uIU/mL 11/17/2016 Free T4 Voe820 FREE T4 1.02 ng/dL 11/17/2016 Comp Metabolic Lnx883 NA 138 mEq/L 10/13/2016 Comp Metabolic Zuh355 K 4.4 mEq/L 10/13/2016 Comp Metabolic Qry778 CL 102 mEq/L 10/13/2016 Comp Metabolic Shn277 CO2 29.0 mEq/L 10/13/2016 Comp Metabolic Lvi920 ANION GAP 11 10/13/2016 Comp Metabolic Flb024 GLUCOSE 85 mg/dL 10/13/2016 Comp Metabolic Wde690 Creat 1.0 mg/dL 10/13/2016 Comp Metabolic Rpp844 eGFR 59 ml/min/1.73m2 10/13/2016 Comp Metabolic Mhx019 BUN 21 mg/dL 10/13/2016 Comp Metabolic Hoe029 B/C Ratio 21.2 Ratio 10/13/2016 Comp Metabolic Qdh844 CALCIUM 9.7 mg/dL 10/13/2016 Comp Metabolic Qav986 ALK PHOS 70 U/L 10/13/2016 Comp Metabolic Qod999 AST(SGOT) 17 U/L 10/13/2016 Comp Metabolic Zew818 ALT(SGPT) 14 U/L 10/13/2016 Comp Metabolic Qcg933 BILI T 0.9 mg/dL 10/13/2016 Comp Metabolic Gqc808 ALBUMIN 4.4 g/dL 10/13/2016 Comp Metabolic Lhq003 TPRO 7.1 g/dL 10/13/2016 Comp Metabolic Mbr232 GLOB 2.7 g/dL 10/13/2016 Comp Metabolic Mmk251 A/G Ratio 1.6 Ratio 10/13/2016 Comp Metabolic Agw687 Osmo 278 mOsmo 10/13/2016 Cbc With Differential [...] 29.7 pg 10/13/2016 Cbc With Differential Ord2 [place]% 7.7 % 10/13/2016 Cbc With Differential Ord2 MCHC 33.2 pg 10/13/2016 Cbc With Differential Ord2 Eos% 1.8 % 10/13/2016 Cbc With Differential Ord2 Baso% 0.3 % 10/13/2016 Cbc With Differential Ord2 PLT 521 K/ul 10/13/2016 Cbc With Differential Ord2 RDW 13.9 % 10/13/2016 Cbc With Differential Ord2 Neut ABS# 3.98 K/ul 10/13/2016 Cbc With Differential Ord2 Lymph ABS# 1.43 K/ul 10/13/2016 Cbc With Differential Ord2 [place] ABS# 0.5 K/ul 10/13/2016 Cbc With Differential Ord2 Eos ABS# 0.1 K/ul 10/13/2016 Cbc With Differential Ord2 Baso ABS# 0.0 K/ul 10/13/2016 Lipid Ord30 CHOL 195 mg/dL 10/13/2016 Lipid Ord30 HDL 68.0 mg/dl 10/13/2016 Lipid Ord30 TRIG 69 mg/dL 10/13/2016 Lipid Ord30 LDL 113 mg/dL 10/13/2016 Lipid Ord30 C/HDL 2.9 Ratio 10/13/2016 Free T4 Kxb134 FREE T4 1.31 ng/dL 08/17/2016 Tsh Ord6 hTSH II 0.64 uIU/mL 08/17/2016 Tsh Ord6 hTSH II 0.03 uIU/mL 05/10/2016 Comp Metabolic Uin707 NA 139 mEq/L 05/10/2016 Comp Metabolic Zco243 K 4.5 mEq/L 05/10/2016 Comp Metabolic Tdv034 CL 104 mEq/L 05/10/2016 Comp Metabolic Jar097 CO2 24.0 mEq/L 05/10/2016 Comp Metabolic Cmg353 ANION GAP 16 05/10/2016 Comp Metabolic Luo346 GLUCOSE 87 mg/dL 05/10/2016 Comp Metabolic Xkc126 Creat 0.9 mg/dL 05/10/2016 Comp Metabolic Bvr324 eGFR 71 ml/min/1.73m2 05/10/2016 Comp Metabolic Myg755 BUN 12 mg/dL 05/10/2016 Comp Metabolic Mdd337 B/C Ratio 14.1 Ratio 05/10/2016 Comp Metabolic Hex708 CALCIUM 9.6 mg/dL 05/10/2016 Comp Metabolic Meu306 ALK PHOS 89 U/L 05/10/2016 Comp Metabolic Sjo770 AST(SGOT) 17 U/L 05/10/2016 Comp Metabolic Dkp031 ALT(SGPT) 17 U/L 05/10/2016 Comp Metabolic Zkr291 BILI T 0.9 mg/dL 05/10/2016 Comp Metabolic Dqr447 ALBUMIN 4.2 g/dL 05/10/2016 Comp Metabolic Zgl209 TPRO 6.7 g/dL 05/10/2016 Comp Metabolic Jzy573 GLOB 2.5 g/dL 05/10/2016 Comp Metabolic Shz380 A/G Ratio 1.7 Ratio 05/10/2016 Comp Metabolic Sor207 Osmo 277 mOsmo 05/10/2016 Free T4 Juh461 FREE T4 1.49 ng/dL 05/10/2016 Cbc With Differential Ord2 WBC 6.60 K/ul 05/10/2016 Cbc With Differential Ord2 RBC 4.98 M/ul 05/10/2016 Cbc With Differential Ord2 HGB 14.5 g/dl 05/10/2016 Cbc With Differential Ord2 HCT 42.6 % 05/10/2016 Cbc With Differential Ord2 Neut% 64.4 % 05/10/2016 Cbc With Differential Ord2 MCV 85.5 fl 05/10/2016 Cbc With Differential Ord2 Lymph% 23.8 % 05/10/2016 Cbc With Differential Ord2 [place]% 8.3 % 05/10/2016 Cbc With Differential Ord2 [...] 1.57 K/ul 05/10/2016 Cbc With Differential Ord2 [place] ABS# 0.6 K/ul 05/10/2016 Cbc With Differential Ord2 Eos ABS# 0.2 K/ul 05/10/2016 Cbc With Differential Ord2 Baso ABS# 0.0 K/ul 05/10/2016 Free T4 Ycv831 FREE T4 1.67 ng/dL 02/18/2016 Tsh Ord6 hTSH II 0.06 uIU/mL 02/18/2016 Comp Metabolic Zvv064 NA 138 mEq/L 02/18/2016 Comp Metabolic Rtl020 K 4.5 mEq/L 02/18/2016 Comp Metabolic Jvu939 CL 104 mEq/L 02/18/2016 Comp Metabolic Sih865 CO2 26.0 mEq/L 02/18/2016 Comp Metabolic Jnn212 ANION GAP 13 02/18/2016 Comp Metabolic Iio158 GLUCOSE 88 mg/dL 02/18/2016 Comp Metabolic Nck134 Creat 0.9 mg/dL 02/18/2016 Comp Metabolic Kai463 eGFR 69 ml/min/1.73m2 02/18/2016 Comp Metabolic Usi713 BUN 14 mg/dL 02/18/2016 Comp Metabolic Gnx750 B/C Ratio 16.1 Ratio 02/18/2016 Comp Metabolic Fzj875 CALCIUM 9.4 mg/dL 02/18/2016 Comp Metabolic Ufv833 ALK PHOS 95 U/L 02/18/2016 Comp Metabolic Tkk465 AST(SGOT) 19 U/L 02/18/2016 Comp Metabolic Zzy019 ALT(SGPT) 18 U/L 02/18/2016 Comp Metabolic Aqa308 BILI T 0.7 mg/dL 02/18/2016 Comp Metabolic Luc283 ALBUMIN 4.4 g/dL 02/18/2016 Comp Metabolic Ykp374 TPRO 6.9 g/dL 02/18/2016 Comp Metabolic Zxf252 GLOB 2.5 g/dL 02/18/2016 Comp Metabolic Ohf623 A/G Ratio 1.7 Ratio 02/18/2016 Comp Metabolic Jrg765 Osmo 276 mOsmo 02/18/2016 Cbc With Differential [...] 18.8 % 02/18/2016 Cbc With Differential Ord2 [place]% 10.5 % 02/18/2016 Cbc With Differential Ord2 [...] 1.08 K/ul 02/18/2016 Cbc With Differential Ord2 [place] ABS# 0.6 K/ul 02/18/2016 Cbc With Differential Ord2 Eos ABS# 0.0 K/ul 02/18/2016 Cbc With Differential Ord2 Baso ABS# 0.0 K/ul 02/18/2016 Lipid Ord30 CHOL 163 mg/dL 02/18/2016 Lipid Ord30 HDL 43.0 mg/dl 02/18/2016 Lipid Ord30 TRIG 90 mg/dL 02/18/2016 Lipid Ord30 LDL 102 mg/dL 02/18/2016 Lipid Ord30 C/HDL 3.8 Ratio 02/18/2016 Tsh Ord6 hTSH II 1.20 uIU/mL 06/08/2015 Comp Metabolic Amq307 NA 136 mEq/L 06/08/2015 Comp Metabolic Jyg162 K 3.9 mEq/L 06/08/2015 Comp Metabolic Yfb402 CL 103 mEq/L 06/08/2015 Comp Metabolic Bbh011 CO2 25.0 mEq/L 06/08/2015 Comp Metabolic Cqq848 ANION GAP 12 06/08/2015 Comp Metabolic Lat261 GLUCOSE 91 mg/dL 06/08/2015 Comp Metabolic Rew022 Creat 0.9 mg/dL 06/08/2015 Comp Metabolic Gog180 eGFR 68 ml/min/1.73m2 06/08/2015 Comp Metabolic Jpd952 BUN 10 mg/dL 06/08/2015 Comp Metabolic Ooe692 B/C Ratio 11.4 Ratio 06/08/2015 Comp Metabolic Lll971 CALCIUM 9.4 mg/dL 06/08/2015 Comp Metabolic Jnd489 ALK PHOS 88 U/L 06/08/2015 Comp Metabolic Sos949 AST(SGOT) 20 U/L 06/08/2015 Comp Metabolic Hbh447 ALT(SGPT) 18 U/L 06/08/2015 Comp Metabolic Hwj108 BILI T 0.8 mg/dL 06/08/2015 Comp Metabolic Iiw288 ALBUMIN 4.4 g/dL 06/08/2015 Comp Metabolic Rqp659 TPRO 7.0 g/dL 06/08/2015 Comp Metabolic Pgp964 GLOB 2.6 g/dL 06/08/2015 Comp Metabolic Vxu094 A/G Ratio 1.7 Ratio 06/08/2015 Comp Metabolic Wst736 Osmo 271 mOsmo 06/08/2015 Cbc With Differential Ord2 WBC 5.8 [...] Ord2 RDW 14.4 % 06/08/2015 LYME EIA [id number] LYME EIA 0.24 04/25/2014 TULAREM AB [id number] TULAREM AB <1:20 04/24/2014 RMSF IFA [id number] IGG RMSF <1:16 04/24/2014 RMSF IFA 0689188 IGM RMSF <1:10 04/24/2014 E CHAFF AB [id number] IGG E CHFF <1:16 04/24/2014 E CHAFF AB [id number] IGM E CHFF <1:10 04/24/2014 ICT OCCULT [id number] ICT OCCULT NEG 10/11/2013 Review of Systems [...] FLU VACC PRSV FREE INC ANTIG CPT-4: 03636 06/07/2017 PPPS, SUBSEQ VISIT CPT- 4: G0439 11/17/2016 TRIAMCINOLONE ACET INJ NOS CPT-4: J3301 09/05/2016 PPPS, SUBSEQ VISIT CPT- 4: G0439 11/13/2015 PNEUMOCOCCAL VACC 13 STEPHANIE IM Formatting Model/CDA Sections, Assigned to/Lila Colon SNOMED CT: 84851031 CPT-4: [id number] 11/13/2015 ADMIN PNEUMOCOCCAL VACCINE SNOMED CT: 41612339 CPT-4: G0009 11/13/2015 ROCEPHIN, PER 250 MG CPT- 4: J0696 07/23/2015 URINALYSIS NONAUTO W/O SCOPE CPT-4: 90109 10/10/2014 ROUTINE VENIPUNCTURE CPT- 4: 90090 04/23/2014 Pneumococcal Polysaccharide Vaccine, 23-Valent, Ad CPT-4: 56717 04/15/2014 ADMIN INFLUENZA VIRUS VAC CPT-4: G0008 04/15/2014 FLU VAC NO PRSV 4 STEPHANIE 3 YRS+ CPT-4: 56462 04/15/2014 ADMIN PNEUMOCOCCAL VACCINE SNOMED CT: 98709690 CPT-4: G0009 04/15/2014 THER/PROPH/DIAG INJ SC/IM CPT-4: 36042 02/11/2014 TRIAMCINOLONE ACET INJ NOS CPT-4: J3301 02/11/2014 TRIAMCINOLONE ACET INJ NOS CPT-4: J3301 01/21/2014 INITIAL PREVENTIVE EXAM CPT-4: G0402 09/30/2013 PRESCRIP TRANSMIT VIA ERX SY CPT-4: G8553 03/13/2013 Vital Signs Date Vital 08/29/2017 Blood Pressure 1: 146/80 Code: 8480-6 BMI: 29.5 Code: 81538-1 Heart Rate 1: 68 bpm Height: 5'5" SpO2: 98% Temperature: 36.6 (C) / 97.8 (F) Weight: 177 lbs 06/13/2017 Blood Pressure 1: 138/76 Code: 8480-6 BMI: 29.6 Code: 96924-6 Heart Rate 1: 63 bpm Height: 5'5" SpO2: 95% Weight: 178 lbs 02/16/2017 Blood Pressure 1: 128/80 Code: 8480-6 BMI: 29.9 Code: 20114-1 Heart Rate 1: 77 bpm Height: 5'5" SpO2: 96% Weight: 179 lbs 8 oz 02/06/2017 Blood Pressure 1: 140/80 Code: 8480-6 BMI: 29.8 Code: 77399-9 Heart Rate 1: 72 bpm Height: 5'5" SpO2: 97% Weight: 179 lbs 11/17/2016 Blood Pressure 1: 130/72 Code: 8480-6 BMI: 29.6 Code: 65603-0 Heart Rate 1: 62 bpm Height: 5'5" SpO2: 98% Waist Measure (cm): 91 cm Weight: 178 lbs 10/12/2016 Blood Pressure 1: 128/78 Code: 8480-6 BMI: 28.5 Code: 98800-5 Heart Rate 1: 62 bpm Height: 5'5" SpO2: 97% Weight: 171 lbs 09/05/2016 Blood Pressure 1: 122/70 Code: 8480-6 BMI: 28.0 Code: 12256-1 Heart Rate 1: 65 bpm Height: 5'5" SpO2: 94% Weight: 168 lbs 06/21/2016 Blood Pressure 1: 120/82 Code: 8480-6 BMI: 28.3 Code: 06398-4 Heart Rate 1: 65 bpm Height: 5'5" SpO2: 97% Weight: 170 lbs 05/24/2016 Blood Pressure 1: 136/80 Code: 8480-6 BMI: 28.1 Code: 95948-3 Heart Rate 1: 71 bpm Height: 5'5" SpO2: 96% Weight: 169 lbs 05/10/2016 Blood Pressure 1: 120/82 Code: 8480-6 BMI: 27.6 Code: 08646-4 Heart Rate 1: 86 bpm Height: 5'5" SpO2: 95% Weight: 166 lbs 05/03/2016 Blood Pressure 1: 124/78 Code: 8480-6 BMI: 28.1 Code: 57347-6 Heart Rate 1: 88 bpm Height: 5'5" SpO2: 97% Weight: 169 lbs 11/13/2015 Blood Pressure 1: 130/60 Code: 8480-6 BMI: 30.0 Code: 20601-9 Heart Rate 1: 7 bpm Height: 5'5" Waist Measure (cm): 97 cm Weight: 180 lbs 07/23/2015 Blood Pressure 1: 124/70 Code: 8480-6 BMI: 29.6 Code: 35341-2 Heart Rate 1: 74 bpm Height: 5'5" SpO2: 96% Temperature: 36.7 (C) / 98.1 (F) Weight: 178 lbs 07/06/2015 Blood Pressure 1: 138/78 Code: 8480-6 BMI: 29.6 Code: 65857-1 Heart Rate 1: 84 bpm Height: 5'5" SpO2: 96% Weight: 178 lbs 05/26/2015 Blood Pressure 1: 122/80 Code: 8480-6 BMI: 29.6 Code: 30499-1 Heart Rate 1: 84 bpm Height: 5'5" Weight: 178 lbs 02/16/2015 Blood Pressure 1: 124/82 Code: 8480-6 BMI: 29.0 Code: 05254-5 Heart Rate 1: 68 bpm Height: 5'5" Weight: 174 lbs 12/10/2014 Blood Pressure 1: 112/64 Code: 8480-6 BMI: 28.6 Code: 36926-1 Heart Rate 1: 80 bpm Height: 5'5" Weight: 172 lbs 10/16/2014 Blood Pressure 1: 128/84 Code: 8480-6 Heart Rate 1: 64 bpm Weight: 172 lbs 10/09/2014 Blood Pressure 1: 136/90 Code: 8480-6 BMI: 28.6 Code: 81838-0 Heart Rate 1: 76 bpm Height: 5'5" Weight: 172 lbs 08/26/2014 Blood Pressure 1: 118/72 Code: 8480-6 BMI: 29.0 Code: 28586-0 Heart Rate 1: 76 bpm Height: 5'5" Weight: 174 lbs 05/16/2014 Blood Pressure 1: 110/72 Code: 8480-6 BMI: 29.0 Code: 35914-5 Height: 5'5" Weight: 174 lbs 04/23/2014 Blood Pressure 1: 124/70 Code: 8480-6 BMI: 29.0 Code: 89713-1 Heart Rate 1: 72 bpm Height: 5'5" Weight: 174 lbs 04/15/2014 Temperature: 36.5 (C) / 97.7 (F) 01/21/2014 Blood Pressure 1: 98/62 Code: 8480-6 BMI: 29.0 Code: 75937- 5 Heart Rate 1: 84 bpm Height: 5'5" Temperature: 37.1 (C) / 98.7 (F) Weight: 174 lbs 12/05/2013 Blood Pressure 1: 138/88 Code: 8480-6 BMI: 29.0 Code: 20428-9 Heart Rate 1: 60 bpm Height: 5'5" Weight: 174 lbs 11/05/2013 Blood Pressure 1: 118/80 Code: 8480-6 BMI: 28.8 Code: 68130-0 Heart Rate 1: 76 bpm Height: 5'5" Weight: 173 lbs 10/15/2013 Blood Pressure 1: 120/78 Code: 8480-6 BMI: 29.1 Code: 22262-5 Heart Rate 1: 88 bpm Height: 5'5" Weight: 175 lbs 09/30/2013 Blood Pressure 1: 112/84 Code: 8480-6 BMI: 29.1 Code: 70128-6 Heart Rate 1: 68 bpm Height: 5'5" Weight: 175 lbs 03/13/2013 Blood Pressure 1: 112/84 Code: 8480-6 BMI: 28.6 Code: 43935-1 Heart Rate 1: 64 bpm Height: 5'5" Weight: 173 lbs 10/04/2012 Blood Pressure 1: 120/72 Code: 8480-6 BMI: 28.0 Code: 93768-4 Heart Rate 1: 64 bpm Height: 5'5" Weight: 169 lbs 08/22/2011 Blood Pressure 1: 134/84 Code: 8480-6 BMI: 27.5 Code: 09259-9 Heart Rate 1: 68 bpm Height: 5'5" Respiratory Rate: 16 bpm Weight: 166 lbs 8 oz 06/17/2011 Blood Pressure 1: 120/76 Code: 8480-6 BMI: 27.0 Code: 92399-6 Heart Rate 1: 58 bpm Height: 5'5" [...] Other allergic rhinitis[ICD10: J30.89] Gina Alvarado MD, [facility] CPT- 4: 51192 08/29/2017 ([id number]) 52077 EST. PATIENT, LEVEL IV Diagnosis: Postprocedural hypothyroidism[ICD10: E89.0] Diagnosis: Major depressive disorder, recurrent, moderate[ICD10: F33.1] Diagnosis: Generalized anxiety disorder[ICD10: F41.1] Elina Alvarado MD, [facility] CPT-4: 65462 06/13/2017 [id number]) 91670 EST. PATIENT, LEVEL IV Diagnosis: Pelvic and perineal pain[ICD10: R10.2] Diagnosis: Acute vaginitis[ICD10: N76.0] [facility] CPT-4: 47634 02/16/2017 [id number]) 69836 EST. PATIENT, LEVEL III Diagnosis: Postprocedural hypothyroidism[ICD10: E89.0] Diagnosis: Major depressive disorder, recurrent, moderate[ICD10: F33.1] [facility] CPT-4: 11098 02/06/2017 [id number]) 66044 EST. PATIENT, LEVEL III Diagnosis: Generalized anxiety disorder[ICD10: F41.1] Elina Alvarado MD, [facility] CPT-4: 72081 10/12/2016 ([id number]) 42918 EST. PATIENT, LEVEL III Diagnosis: Cough[ICD10: R05] Diagnosis: Acute upper respiratory infection, unspecified[ICD10: J06.9] Suma Alvarado MD, [facility] CPT-4: 36127 09/05/2016 ([id number]) 15780 EST. PATIENT, LEVEL III Diagnosis: Generalized anxiety disorder[ICD10: F41.1] Diagnosis: Major depressive disorder, recurrent, moderate[ICD10: F33.1] Diagnosis: Postprocedural hypothyroidism[ICD10: E89.0] Elina Alvarado MD, [facility] CPT-4: 19246 06/21/2016 ([id number]) 23861 EST. PATIENT, LEVEL III Diagnosis: Major depressive disorder, recurrent, moderate[ICD10: F33.1] Elina Alvarado MD, [facility] CPT-4: 60684 05/24/2016 ([id number]) 98620 EST. PATIENT, LEVEL III Diagnosis: Major depressive disorder, recurrent, moderate[ICD10: F33.1] Elina Alvarado MD, [facility] CPT-4: 09595 05/10/2016 ([id number]) 09411 EST. PATIENT, LEVEL III Diagnosis: Generalized anxiety disorder[ICD10: F41.1] Diagnosis: Major depressive disorder, recurrent, moderate[ICD10: F33.1] Suma Alvarado MD, [facility] CPT-4: 64800 05/03/2016 ([id number]) 89532 EST. PATIENT, LEVEL III Diagnosis: Cough[ICD10: R05] Diagnosis: Acute upper respiratory infection, unspecified[ICD10: J06.9] Suma Alvarado MD, [facility] CPT-4: 43337 07/23/2015 ([id number]) 67557 EST. PATIENT, LEVEL III Diagnosis: Hypothyroidism, unspecified[ICD10: E03.9] Diagnosis: Generalized anxiety disorder[ICD10: F41.1] Diagnosis: Other depressive episodes[ICD10: F32.8] Elina Alvarado MD, [facility] CPT-4: 02932 07/06/2015 ([id number]) 62740 EST. PATIENT, LEVEL IV Diagnosis: Generalized anxiety disorder[ICD10: F41.1] Diagnosis: Major depressive disorder, recurrent, unspecified[ICD10: F33.9] Elina Alvarado MD, [facility] CPT-4: 09105 05/26/2015 ([id number]) 94293 EST. PATIENT, LEVEL II Diagnosis: 2Nd degree burn of multiple fingers of right hand not including thumb[ICD9: 944.23] Suma Alvarado MD, [facility] CPT-4: 29924 02/16/2015 ([id number]) 00744 EST. PATIENT, LEVEL IV Diagnosis: Hammertoe[ICD9: 735.4] Diagnosis: Foot pain[ICD9: 729.5] Diagnosis: HYPOTHYROIDISM[ICD9: 244.9] Elina Alvarado MD, [facility] CPT-4: 19104 12/10/2014 ([id number]) 86039 EST. PATIENT, LEVEL III Diagnosis: Urinary incontinence[ICD9: 788.30] Diagnosis: Pelvic pain in female[ICD9: 625.9] Elina Alvarado MD, [facility] CPT- 4: 38461 10/16/2014 ([id number]) 03283 EST. PATIENT, LEVEL III Diagnosis: Urinary incontinence[ICD9: 788.30] Diagnosis: Pelvic pain in female[ICD9: 625.9] Suma Alvarado MD [facility] CPT- 4: 45657 10/09/2014 ([id number]) 45186 EST. PATIENT, LEVEL III Diagnosis: HYPOTHYROIDISM[ICD9: 244.9] Elina Alvarado MD [facility] CPT-4: 79821 08/26/2014 ([id number]) 49386 EST. PATIENT, LEVEL III Diagnosis: Neck pain[ICD9: 723.1] Diagnosis: Muscle tension headache[ICD9: 307.81] Suma Alvarado MD [facility] CPT-4: 97647 05/16/2014 ([id number]) 50315 EST. PATIENT, LEVEL IV Diagnosis: Arthropod bite[ICD9: 919.4] Diagnosis: Poison diana dermatitis[ICD9: 692.6] Diagnosis: Arthralgia[ICD9: 719.40] Diagnosis: Myalgia[ICD9: 729.1] Elina Alvarado MD, [facility] CPT-4: 35639 04/23/2014 ([id number]) 00909 EST. PATIENT, LEVEL III Diagnosis: ACUTE URI[ICD9: 465.9] Diagnosis: COUGH[ICD9: 786.2] Suma Alvarado MD, [facility] CPT-4: 98997 01/21/2014 ([id number]) 98109 EST. PATIENT, LEVEL III Diagnosis: HYPOTHYROIDISM[ICD9: 244.9] Diagnosis: GENERALIZED ANXIETY DISEASE[ICD9: 300.02] Elina Alvarado MD, [facility] CPT-4: 80637 12/05/2013 ([id number]) 26946 EST. PATIENT, LEVEL III Diagnosis: GENERALIZED ANXIETY DISEASE[ICD9: 300.02] Diagnosis: DEPRESSIVE DISORDER NEC[ICD9: 311] Elina Alvarado MD, [facility] CPT- 4: 55814 11/05/2013 ([id number]) 87657 EST. PATIENT, LEVEL III Diagnosis: HYPOTHYROIDISM[ICD9: 244.9] Elina Alvarado MD, [facility] CPT-4: 06575 10/15/2013 ([id number]) Miscellaneous no charge Diagnosis: Colon cancer screening[ICD9: V76.51] Elina Alvarado MD, [facility] CPT- 4: 96257 10/10/2013 ([id number]) 56362 EST. PATIENT, LEVEL IV Diagnosis: HYPOTHYROIDISM[ICD9: 244.9] Diagnosis: DEPRESSIVE DISORDER NEC[ICD9: 311] Diagnosis: GENERALIZED ANXIETY DISEASE[ICD9: 300.02] Diagnosis: HYPERLIPIDEMIA[ICD9: 272.4] Elina Alvarado MD, [facility] CPT-4: 20653 03/13/2013 ([id number]) 51190 EST. PATIENT, LEVEL IV Diagnosis: HYPERLIPIDEMIA[ICD9: 272.4] Diagnosis: HYPOTHYROIDISM[ICD9: 244.9] Diagnosis: GENERALIZED ANXIETY DISEASE[ICD9: 300.02] Diagnosis: DEPRESSIVE DISORDER NEC[ICD9: 311] Elina Alvarado MD, [facility] CPT- 4: 26340 10/04/2012 ([id number]) 00887 EST. PATIENT, LEVEL III Diagnosis: VICTOR HUGO (generalized anxiety disorder)[ICD9: 300.02] Diagnosis: Chronic depression[ICD9: 311] [facility] CPT-4: 93179 08/22/2011 32766 EST. PATIENT, LEVEL IV Diagnosis: CHEST PAIN NEC[ICD9: 786.59] Diagnosis: HYPERLIPIDEMIA[ICD9: 272.4] Diagnosis: POSTSURGICAL HYPOTHYROIDISM[ICD9: 244.0] [facility] CPT-4: 73630 06/17/2011 Plan of Care Planned Activity Notes [...] spray. 08/29/2017 [phone] ([facility] min) Moderate 08/29/2017 Patient [...] with counseling. 06/13/2017 [phone] ([facility]) Moderate 06/13/2017 Patient Education: Patient Medication Summary Completed 06/13/2017 Appointment: Injection 06/07/2017 Patient Education: Patient Medication Summary Completed 06/07/2017 Visit Plan: Pelvic pain-UA negative-pap done today in the office- will start patient on flagyl for bacterial vaginosis-instructed patient to call if symptoms do not resolve or if any worse. Patient verbalized understanding of plan. 02/16/2017 Appointment: Suma Choi WPtel: [phone] [phone] (30 min) Complex 02/16/2017 Patient Education: [...] current medications. 02/06/2017 Appointment: [phone] [facility] (15 min) Moderate 02/06/2017 Patient Education: [...] surrogate. 11/17/2016 [facility]ment: [phone] [facility] [facility] - Annual Wellness Visit 11/17/2016 Patient Education: [...] medications. 10/12/2016 Appointment: Elina Alvarado WPtel: [phone] [facility] (15 min) Moderate 10/12/2016 Patient Education: Patient [...] J06.9 09/05/2016 Appointment: [facility]el[facility] [phone] [phone] [place] (10 min) Simple 09/05/2016 Patient Education: [...] lexapro 06/21/2016 Appointment: [phone] [facility] (15 min) Moderate 06/21/2016 Patient Education: Patient Medication Summary Completed 06/21/2016 Visit Plan: Depression - improved with lexapro - continue with current treatment and counseling. 05/24/2016 Appointment: Elina Alvarado WPtel: [facility] (15 min) Moderate 05/24/2016 Patient Education: Patient Medication Summary Completed 05/24/2016 Visit Plan: Depression - improved on the Lexapro - stop ativan - start on xanax 05/10/2016 Appointment: Elina Alvarado WPtel: [facility] (15 min) Moderate 05/10/2016 Patient Education: Patient [...] Summary Completed 05/03/2016 Appointment: Suma Choi WPtel: [phone] [place] (15 min) Moderate 02/26/2016 Visit [...] and to maintain independece in the home. Ywkzlqaptw-vjcvuanjzila-xzrdvi to wellbutrin Pneumonia 13 administered today in [...] and to maintain independece in the home. Akdzamlabu-kfvsuesmrtoj-ognlnm to wellbutrin Pneumonia 13 administered today in the office 11/13/2015 Appointment: [facility] - Annual Wellness Visit 11/13/2015 Patient Education: Patient Medication Summary Completed 11/13/2015 Patient Education: Obesity Completed 11/13/2015 Care Plan: [employer] : 34003-0 Ordered 11/13/2015 Appointment: Lab Draw 08/10/2015 Visit [...] current medications. 07/06/2015 Appointment: Elina Alvarado WPtel: [facility] (30 min) Complex 07/06/2015 Patient Education: [...] upon discharge. 12/10/2014 Appointment: Elina Alvarado WPtel: [address] [place], [place] [phone] Surgical Clearance 12/10/2014 Patient Education: Patient Medication Summary Completed 12/10/2014 Visit Plan: Urinary incontinence and Pelvic discomfort - recommended pt to have evaluation by Dr. Brandt - pt agreeable to referral. Pt is to call if abdominal pain does not improve. 10/16/2014 Appointment: Elina Alvarado WPtel: [address] [place], [place] [address] Follow up 10/16/2014 Patient Education: Patient Medication Summary Completed 10/16/2014 Care Plan: Referral Order SNOMED-CT : [id number] Ordered 10/16/2014 Patient Education: Patient Medication Summary Completed 10/10/2014 Visit Plan: Pelvic pain-history of mesh implant-recommend CT abd/pelvis to evaluate for any abnormality-refer to Dr Woods if pain does not improve Urinary incontinence-check UA with C&S if indicated 10/09/2014 Patient Education: Patient Medication Summary Completed 10/09/2014 Care Plan: CT ABD & PELV 1/> REGNS LOINC : 34694-9 Ordered 10/09/2014 Visit Plan: Hypothyroidism - pt with chronic hypothyroidism, continue with current medication, will monitor pt to signs or symptoms of lack of adequate supplementation. Pt is to continue with current dose of medication unless directed otherwise. Check labs at regular intervals wither q 3 months or q 6 months based on previous levels of control. 08/26/2014 Appointment: Elina Alvarado WPtel: [facility] [facility] 08/26/2014 Patient Education: Patient [...] with screening. 04/23/2014 Appointment: Elina Alvarado WPtel: [address] [place], [place] [phone] Sick 04/23/2014 Patient Education: Patient Medication Summary Completed 04/23/2014 Care Plan: Referral Order SNOMED-CT : [id number] Ordered 04/23/2014 Appointment: Nurse Visit 04/15/2014 Patient Education: Patient Medication Summary Completed 04/15/2014 Appointment: Elina Alvarado WPtel: [facility] [place] Injection 02/11/2014 Patient Education: Patient Medication [...] treatment. 12/05/2013 Appointment: [facility]ado [phone] [facility] Follow [facility] 12/05/2013 Patient Education: Patient [...] medications. 11/05/2013 Appointment: [phone] [facility] 11/05/2013 Patient Education: Patient [...] control. 10/15/2013 Appointment: [phone] [facility] [facility] 10/15/2013 Patient Education: Patient [...] paperwork for health care surrogate. 09/30/2013 Appointment: Christiano Elina WPtel: [phone] [facility] [facility] - Initial Preventive Physical Exam 09/30/2013 Patient Education: Patient Medication Summary Completed 09/30/2013 Appointment: Elina Alvarado WPtel: [phone] [facility] [facility] - Initial Preventive Physical Exam 09/11/2013 Visit [...] use. 03/13/2013 Appointment: Elina Alvarado WPtel: [phone] [facility] Follow up 03/13/2013 Patient Education: Patient Medication [...] 10/04/2012 Appointment: Elina Alvarado WPtel: [phone] [facility] Follow up 10/04/2012 Patient Education: Patient Medication [...] anxiety attacks. 08/22/2011 Appointment: [facility]ado [phone] [place] Other 08/22/2011 Patient Education: Patient Medication [...] ULTRASOUND 06/17/2011 Appointment: [facility]ado [facility] [phone] [facility] Other 06/17/2011 Patient Education: Patient Medication [...] - no change in current treatment. . Hypothyroidism - pt with chronic hypothyroidism, [...] of treament with the above medications. . Anxiety - the patient has [...] - pt is not up-to-date with screening. increase synthroid to 112 mcg daily. . [...] continue with current treatment and counseling. . Pelvic pain-history of mesh implant-recommend CT abd/pelvis to evaluate for any abnormality-refer to Dr Woods if pain does not improve Urinary incontinence-check UA with C&S if indicated LEXAPRO 20MG 1/2 TAB DAILY X 1 [...] Kenalog injection today in the office. . 2nd degree burn of right 2nd and 3rd fingers-dressing change today in the office-continue with current treatment as discussed-instructed patient to call for any signs/symptoms of infection or other concerns. Patient verbalized understanding of plan. . Depression [...] and to maintain independece in the home. Qwivoscfwm-zpfyolstrtry-zwzrij to wellbutrin Pneumonia 13 administered today in [...] and to maintain independece in the home. Fdjqcimrsd-ibnfwmgqnfan-gwelpw to wellbutrin Pneumonia 13 administered today in the office . Neck pain-muscle tightness-recommend anti inflammatories as directed-samples of vimovo provided and instructed on use. Use rice bag heat several times daily as tolerated-get supportive pillow. Call if symptoms do not resolve. . Hypothyroidism - pt with chronic hypothyroidism, [...] refill of ativan for prn use. . check labs appointment with dr ambrocio [...] if abdominal pain does not improve. . Medicare Exam - today we discussed [...]
--- OUTSIDE RECORDS SUMMARY | 2018-12-27 10:15 | XMS REPORT | CCD ---
Author Author [facility]ina [facility] Organization [facility] Address [address] [place] [address] Phone Care Team Providers Care Recruiting Intern Name Role Phone PP Unavailable CCM Unavailable Summary Purpose Interface Exchange Insurance Providers Payer name Policy type / Coverage type Covered constitution party ID Effective Begin Date Effective End Date WPS Medicare Part B [id number] 2014 Unknown [facility] [id number] 2014 Unknown Family history Sister Diagnosis Age [...] Description Effective Dates Tobacco history SNOMED CT: 9268812 Former smoker quit 2 years ago, social smoker, 1 pack per month 200709/30/2013 Employment Unknown 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 03/13/2013 Marital status Unknown 06/17/[address]: 502396 Currently drinks alcohol 2 beers/week 06/17/2011 Has [...] 02/16/2017 Unknown Pelvic and perineal pain ICD-9: [id number] ICD-10: R10.2 Active 02/16/2017 Unknown Encounter for [...] 02/16/2017 Active Pelvic and perineal pain ICD-9: [id number] ICD-10: R10.2 02/16/2017 Active Encounter for general [...] Fill Instructions Xanax 0.5 mg tablet RxNorm: 182626 1 Tablet(s) PO QID as needed anxiety 09/11/2017 11/09/2017 Active Tamiflu 75 mg capsule RxNorm: 053901 1 Capsule(s) PO BID 08/29/2017 09/02/2017 Inactive Synthroid 112 mcg tablet RxNorm: 636713 1 Tablet(s) daily 08/14/2017 12/05/2017 Active fyi - medication changed, refill x 6 - #30 pills Synthroid 112 mcg tablet RxNorm: 598054 1 Tablet(s) daily 06/13/2017 08/13/2017 Inactive fyi - medication changed, refill x 6 - #30 pills Lexapro 20 mg tablet RxNorm: 446026 TAKE ONE TABLET BY MOUTH DAILY 06/09/2017 11/05/2017 Active Synthroid 112 mcg tablet RxNorm: 348801 TAKE 1 TABLET BY MOUTH DAILY EXCEPT TAKE 1/2 TABLET ON MONDAY, MONDAY, AND Monday05/22/2017 06/12/2017 Inactive Lipitor 10 mg tablet RxNorm: 683331 TAKE ONE TABLET BY MOUTH EVERY DAY 03/08/2017 05/31/2018 Active Flagyl 500 mg tablet RxNorm: 527478 1 Tablet(s) PO TID 02/16/2017 02/22/2017 Inactive Xanax 0.5 mg tablet RxNorm: 125940 1 Tablet(s) PO QID as needed anxiety 12/23/2016 03/21/2017 Inactive Synthroid 112 mcg tablet RxNorm: 582102 TAKE 1 TABLET BY MOUTH DAILY EXCEPT FOR TAKE 1/2 TABLET ON MONDAY, MONDAY, AND Monday12/23/2016 04/13/2017 Inactive Lexapro 20 mg tablet RxNorm: 069165 TAKE ONE TABLET BY MOUTH DAILY 11/29/2016 05/27/2017 Inactive Zithromax Z-Que 250 mg tablet RxNorm: 401918 1 Tablet(s) PO UD 09/05/2016 09/09/2016 Inactive zpack Kenalog 40 mg/mL suspension for injection RxNorm: 4741977 1 Milliliter(s) Inj 09/05/2016 09/05/2016 Inactive Lipitor 10 mg tablet RxNorm: 508494 TAKE ONE TABLET BY MOUTH EVERY DAY 08/30/2016 02/25/2017 Inactive Ativan 1 mg tablet RxNorm: 505469 1 Tablet(s) PO Q6 PRN as needed TAKE ONE TABLET BY MOUTH THREE TIMES A DAY OR EVERY 6 HOURS NEEDED FOR ANXIETY 08/30/2016 12/22/2016 Inactive Synthroid 112 mcg tablet RxNorm: 738708 1 Tablet(s) PO daily except one-half tab on /Sat 08/23/2016 12/12/2016 Inactive will refill when needed Lexapro 20 mg tablet RxNorm: 869994 TAKE ONE TABLET BY MOUTH DAILY 08/02/2016 11/28/2016 Inactive Synthroid 112 mcg tablet RxNorm: 978872 1 Tablet(s) PO daily except 1/2 tab mon and sat 05/25/2016 08/22/2016 Inactive will refill when needed Xanax 0.5 mg tablet RxNorm: 198487 1 Tablet(s) PO QID as needed anxiety 05/10/2016 08/29/2016 Inactive Lexapro 20 mg tablet RxNorm: 146345 1 Tablet(s) PO daily 05/03/2016 07/31/2016 Inactive 1/2 tab x 1 week then increase to a full pill daily buspirone 5 mg tablet RxNorm: 349311 TAKE ONE-HALF TABLET BY MOUTH TWICE A DAY 03/15/2016 05/02/2016 Inactive Synthroid 112 mcg tablet RxNorm: 825138 1 Tablet(s) PO daily 02/25/2016 05/24/2016 Inactive Ativan 1 mg tablet RxNorm: 140607 Tablet(s) TAKE ONE TABLET BY MOUTH THREE TIMES A DAY OR EVERY 6 HOURS NEEDED FOR ANXIETY 02/04/2016 05/08/2016 Inactive Synthroid 125 mcg tablet RxNorm: 431870 TAKE ONE TABLET BY MOUTH TWICE WEEKLY 01/11/2016 02/24/2016 Inactive Synthroid 112 mcg tablet RxNorm: 250886 TAKE ONE TABLET BY MOUTH FIVE DAYS A WEEK 01/11/2016 02/24/2016 Inactive Wellbutrin 75 mg tablet RxNorm: 756272 TAKE ONE TABLET BY MOUTH TWICE A DAY 01/11/2016 05/02/2016 Inactive Ativan 1 mg tablet RxNorm: 107584 TAKE ONE TABLET BY MOUTH THREE TIMES A DAY OR EVERY 6 HOURS NEEDED 12/03/2015 12/27/2015 Inactive Lipitor 10 mg tablet RxNorm: 819084 TAKE ONE TABLET BY MOUTH EVERY DAY 12/03/2015 08/28/2016 Inactive Ativan 1 mg tablet RxNorm: 537121 Tablet(s) TAKE ONE TABLET BY MOUTH THREE TIMES A DAY AND TAKE ONE TABLET BY MOUTH EVERY 6 HOURS NEEDED FOR ANXIETY 12/03/2015 12/02/2015 Inactive (Response to an electronic controlled substance refill request - RxReferenceNumber: [id number]) Wellbutrin 75 mg tablet RxNorm: 001778 1 Tablet(s) PO BID 11/13/2015 01/10/2016 Inactive Ativan 1 mg tablet RxNorm: 367927 Tablet(s) TAKE ONE TABLET BY MOUTH THREE TIMES A DAY AND TAKE ONE TABLET BY MOUTH EVERY 6 HOURS NEEDED FOR ANXIETY 09/23/2015 10/30/2015 Inactive (Response to an electronic controlled substance refill request - RxReferenceNumber: [id number]) buspirone 5 mg tablet RxNorm: 413248 TAKE ONE-HALF TABLET BY MOUTH TWICE A DAY 08/18/2015 03/01/2016 Inactive ceftriaxone 500 mg solution for injection RxNorm: 8150323 Inj 07/23/2015 07/23/2015 Inactive Zithromax Z-Que 250 mg tablet RxNorm: 742974 1 Tablet(s) PO UD 07/23/2015 07/27/2015 Inactive ZPACK buspirone 5 mg tablet RxNorm: 757559 1 Tablet(s) PO daily 07/06/2015 10/03/2015 Inactive buspirone 5 mg tablet RxNorm: 772092 1/2 Tablet(s) PO BID 05/26/2015 07/05/2015 Inactive Lipitor 10 mg tablet RxNorm: 340715 TAKE ONE TABLET BY MOUTH EVERY DAY 04/23/2015 10/19/2015 Inactive Ativan 1 mg tablet RxNorm: 419935 Tablet(s) TAKE ONE TABLET BY MOUTH THREE TIMES A DAY AND TAKE ONE TABLET BY MOUTH EVERY 6 HOURS NEEDED FOR ANXIETY 02/23/2015 04/01/2015 Inactive (Response to an electronic controlled substance refill request - RxReferenceNumber: [id number]) Synthroid 125 mcg tablet RxNorm: 336715 1 Tablet(s) PO UD twice weekly 12/10/2014 06/07/2015 Inactive Synthroid 112 mcg tablet RxNorm: 972999 1 Tablet(s) PO UD TAKE ONE TABLET BY MOUTH 5 days a week 12/10/2014 12/04/2015 Inactive Lexapro 20 mg tablet RxNorm: 386870 1 Tablet(s) PO daily 11/26/2014 11/12/2015 Inactive Lipitor 10 mg tablet RxNorm: 303171 TAKE ONE TABLET BY MOUTH EVERY DAY 10/21/2014 04/18/2015 Inactive amoxicillin 500 mg capsule RxNorm: 365380 1 Capsule(s) PO TID 10/15/2014 10/21/2014 Inactive take probiotic BID x 7 days during abt period amoxicillin 500 mg capsule RxNorm: 254881 1 Capsule(s) PO TID 10/15/2014 10/14/2014 Inactive take probiotic BID x 7 days during abt period Ativan 1 mg tablet RxNorm: 934439 TAKE ONE TABLET BY MOUTH THREE TIMES A DAY AND TAKE ONE TABLET BY MOUTH EVERY 6 HOURS NEEDED FOR ANXIETY 08/21/2014 09/28/2014 Inactive (Response to an electronic controlled substance refill request - RxReferenceNumber: [id number]) Ativan 1 mg tablet RxNorm: 334688 1 Tablet(s) PO tid and Q6 PRN as needed 08/18/2014 08/21/2014 Inactive doxycycline hyclate 100 mg tablet RxNorm: 155853 1 Tablet(s) PO BID 04/23/2014 05/25/2015 Inactive prednisone 10 mg tablets in a dose pack RxNorm: 906466 1 Tablet(s) PO 02/14/2014 05/25/2015 Inactive Kenalog 40 mg/mL suspension for injection RxNorm: 7004291 1 Milliliter(s) Inj 02/11/2014 02/11/2014 Inactive Keflex 500 mg capsule RxNorm: 074257 1 Capsule(s) PO TID 01/21/2014 01/27/2014 Inactive Kenalog 40 mg/mL suspension for injection RxNorm: 1168835 Milliliter(s) Inj 01/21/2014 01/21/2014 Inactive Synthroid 112 mcg tablet RxNorm: 122995 1 Tablet(s) PO daily TAKE ONE TABLET BY MOUTH EVERY DAY 12/05/2013 11/29/2014 Inactive Ativan 1 mg tablet RxNorm: 487150 1 Tablet(s) PO Q6 PRN 11/05/2013 02/02/2014 Inactive Lexapro 20 mg tablet RxNorm: 909378 1 Tablet(s) PO daily 11/05/2013 11/04/2013 Inactive Lexapro 20 mg tablet RxNorm: 961918 1 Tablet(s) PO daily 11/05/2013 10/30/2014 Inactive Lipitor 10 mg tablet RxNorm: 277659 1 Tablet(s) PO QPM TAKE ONE TABLET BY MOUTH EVERY DAY 09/30/2013 10/20/2014 Inactive Lexapro 20 mg tablet RxNorm: 900224 1 Tablet(s) PO daily 09/30/2013 11/04/2013 Inactive Synthroid 125 mcg tablet RxNorm: 590415 1 Tablet(s) PO daily 09/10/2013 12/04/2013 Inactive Synthroid 100 mcg tablet RxNorm: 109523 1 Tablet(s) PO daily TAKE ONE TABLET BY MOUTH EVERY DAY 09/06/2013 09/09/2013 Inactive Lipitor 10 mg tablet RxNorm: 634513 Tablet(s) PO TAKE ONE TABLET BY MOUTH EVERY DAY 08/15/2013 09/29/2013 Inactive Synthroid 100 mcg tablet RxNorm: 734118 1 Tablet(s) PO daily TAKE ONE TABLET BY MOUTH EVERY DAY 04/26/2013 09/05/2013 Inactive Ativan 1 mg tablet RxNorm: 183116 1 Tablet(s) PO Q6 PRN 03/13/2013 No Stop Date Active Synthroid 100 mcg tablet RxNorm: 577485 1 Tablet(s) PO daily TAKE ONE TABLET BY MOUTH EVERY DAY 03/13/2013 04/25/2013 Inactive Lexapro 20 mg tablet RxNorm: 141647 1/2 Tablet(s) PO BID 03/13/2013 09/29/2013 Inactive Synthroid 112 mcg tablet RxNorm: 390501 Tablet(s) PO TAKE ONE TABLET BY MOUTH EVERY DAY 01/08/2013 03/12/2013 Inactive Lexapro 20 mg tablet RxNorm: 556415 Tablet(s) PO TAKE 1/2 TABLET EVERY MORNING AND TAKE ONE TABLET BY MOUTH AT BEDTIME 10/18/2012 03/12/2013 Inactive Lipitor 20 mg tablet RxNorm: 263971 1/2 Tablet(s) PO daily 08/20/2012 02/04/2013 Inactive Lipitor 10 mg tablet RxNorm: 790499 1 Tablet(s) PO daily 05/23/2012 08/19/2012 Inactive Synthroid 112 mcg tablet RxNorm: 563060 1 Tablet(s) PO daily 12/16/2011 01/07/2013 Inactive Synthroid 112 mcg Tab RxNorm: 511382 1 Tablet(s) PO daily 12/16/2011 12/15/2011 Inactive Lipitor 10 mg tablet RxNorm: 293026 1 Tablet(s) PO daily 12/15/2011 05/22/2012 Inactive Synthroid 112 mcg Tab RxNorm: 362247 1 Tablet(s) PO every other day 11/09/2011 12/15/2011 Inactive every other day Synthroid 112 mcg Tab RxNorm: 902111 1 Tablet(s) PO every other day 10/21/2011 11/08/2011 Inactive every other day Synthroid 125 mcg Tab RxNorm: 073107 1 Tablet(s) PO every other day 10/21/2011 12/16/2011 Inactive every other day Lexapro 20 mg tablet RxNorm: 580868 1.5 Tablet(s) PO daily 1/2 pill in AM and 1 pill at bedtime 09/22/2011 04/18/2012 Inactive 1/2 q am 1 q hs diazepam 5 mg Tab RxNorm: 621934 1 Tablet(s) PO daily 1 tab bid prn 09/21/2011 05/17/2012 Inactive Lexapro 20 mg Tab RxNorm: 701276 1.5 Tablet(s) PO daily 1/2 pill in AM and 1 pill at bedtime 08/22/2011 09/21/2011 Inactive diazepam 5 mg Tab RxNorm: 883333 1 Tablet(s) PO daily 1 tab bid prn 06/20/2011 09/20/2011 Inactive diazepam 5 mg Tab RxNorm: 971579 1 Tablet(s) PO daily 1 tab bid prn 06/20/2011 06/19/2011 Inactive diazepam 5 mg Tab RxNorm: 280105 1 Tablet(s) PO daily 1 tab bid prn 06/17/2011 06/19/2011 Inactive Lipitor 10 mg Tab RxNorm: 842381 1 Tablet(s) PO daily 05/31/2011 11/26/2011 Inactive diazepam 5 mg Tab RxNorm: 883382 1 Tablet(s) PO BID 1 tab bid prn 04/21/2011 05/20/2011 Inactive Calcium 600 + D(3) Oral RxNorm: Oral No Start Date Active Menest 0.625 mg Tab RxNorm: 573276 1 Tablet(s) PO daily No Start Date 06/16/2011 Inactive Synthroid 125 mcg tablet RxNorm: 249482 Tablet(s) PO No Start Date 09/09/2013 Inactive Ativan 1 mg tablet RxNorm: 136641 1 Tablet(s) PO Q6 PRN No Start Date 08/21/2011 Inactive aspirin 81 mg Tab, Delayed Release RxNorm: 8186083 1 Tablet(s) PO daily No Start Date 09/29/2013 Inactive Lexapro 10 mg Tab RxNorm: 213426 1 Tablet(s) PO daily No Start Date 08/22/2011 Inactive prednisone 10 mg tablets in a dose pack RxNorm: 472309 1 Tablet(s) PO No Start Date 02/13/2014 Inactive Synthroid 112 mcg Tab RxNorm: 775586 Tablet(s) PO tu/th/sat/sun No Start Date 10/20/2011 Inactive lorazepam 1 mg Tab RxNorm: 736917 Tablet(s) PO Q6 PRN No Start Date 11/04/2013 Inactive Lipitor 20 mg tablet RxNorm: 638714 1/2 Tablet(s) PO daily No Start Date 08/20/2012 Inactive Vitamin D2 oral RxNorm: oral No Start Date 09/29/2013 Inactive Synthroid 125 mcg Tab RxNorm: 857218 1 Tablet(s) PO No Start Date 10/20/2011 Inactive synthroid 112 mcg leopoldo osorio Medication Administered Medication Codes Instructions Start Date Status Kenalog 40 mg/mL suspension for injection RxNorm: 1644435 1Milliliter 09/05/2016 No longer Active ceftriaxone 500 mg solution for injection RxNorm: 8993237 07/23/2015 No longer Active Kenalog 40 mg/mL suspension for injection RxNorm: 9176163 1Milliliter 02/11/2014 No longer Active Kenalog 40 mg/mL suspension for injection RxNorm: 6415045 Milliliter 01/21/2014 No longer Active Immunizations Vaccine [...] Pelvic and perineal pain ICD-10: R10.2 ICD-9: TSL5781 02/16/2017 Acute vaginitis ICD-10: N76.0 ICD-9: 623.5 [...] hTSH II 4.83 uIU/mL 06/07/2017 Comp Metabolic Sbr320 NA 141 mEq/L 06/07/2017 Comp Metabolic Qcl239 K 4.3 mEq/L 06/07/2017 Comp Metabolic Pps225 CL 106 mEq/L 06/07/2017 Comp Metabolic Ish980 CO2 26.0 mEq/L 06/07/2017 Comp Metabolic Kgd957 ANION GAP 13 06/07/2017 Comp Metabolic Wwg663 GLUCOSE 93 mg/dL 06/07/2017 Comp Metabolic Olp169 Creat 0.9 mg/dL 06/07/2017 Comp Metabolic Nrz776 eGFR 65 ml/min/1.73m2 06/07/2017 Comp Metabolic Axf789 BUN 10 mg/dL 06/07/2017 Comp Metabolic Jtz301 B/C Ratio 11.0 Ratio 06/07/2017 Comp Metabolic Ivn045 CALCIUM 8.9 mg/dL 06/07/2017 Comp Metabolic Wop699 ALK PHOS 69 U/L 06/07/2017 Comp Metabolic Gbl631 AST(SGOT) 18 U/L 06/07/2017 Comp Metabolic Ota835 ALT(SGPT) 15 U/L 06/07/2017 Comp Metabolic Sax008 BILI T 0.5 mg/dL 06/07/2017 Comp Metabolic Bys680 ALBUMIN 4.1 g/dL 06/07/2017 Comp Metabolic Mrr457 TPRO 6.5 g/dL 06/07/2017 Comp Metabolic Lla607 GLOB 2.4 g/dL 06/07/2017 Comp Metabolic Czu575 A/G Ratio 1.7 Ratio 06/07/2017 Comp Metabolic Bfv251 Osmo 280 mOsmo 06/07/2017 Cbc With Differential [...] 30.7 pg 06/07/2017 Cbc With Differential Ord2 [place]% 9.1 % 06/07/2017 Cbc With Differential Ord2 [...] 1.62 K/ul 06/07/2017 Cbc With Differential Ord2 [place] ABS# 0.5 K/ul 06/07/2017 Cbc With Differential Ord2 Eos ABS# 0.2 K/ul 06/07/2017 Cbc With Differential Ord2 Baso ABS# 0.0 K/ul 06/07/2017 Free T4 Zbh252 FREE T4 0.92 ng/dL 06/07/2017 Tsh Ord6 hTSH II 1.07 uIU/mL 11/17/2016 Free T4 Dxc683 FREE T4 1.02 ng/dL 11/17/2016 Lipid Ord30 CHOL 195 mg/dL 10/13/2016 Lipid Ord30 HDL 68.0 mg/dl 10/13/2016 Lipid Ord30 TRIG 69 mg/dL 10/13/2016 Lipid Ord30 LDL 113 mg/dL 10/13/2016 Lipid Ord30 C/HDL 2.9 Ratio 10/13/2016 Comp Metabolic Yva756 NA 138 mEq/L 10/13/2016 Comp Metabolic Trg408 K 4.4 mEq/L 10/13/2016 Comp Metabolic Pgy343 CL 102 mEq/L 10/13/2016 Comp Metabolic Dmc211 CO2 29.0 mEq/L 10/13/2016 Comp Metabolic Vby350 ANION GAP 11 10/13/2016 Comp Metabolic Qod877 GLUCOSE 85 mg/dL 10/13/2016 Comp Metabolic Ljy920 Creat 1.0 mg/dL 10/13/2016 Comp Metabolic Tas264 eGFR 59 ml/min/1.73m2 10/13/2016 Comp Metabolic Ewj527 BUN 21 mg/dL 10/13/2016 Comp Metabolic Pwi567 B/C Ratio 21.2 Ratio 10/13/2016 Comp Metabolic Bie415 CALCIUM 9.7 mg/dL 10/13/2016 Comp Metabolic Jok386 ALK PHOS 70 U/L 10/13/2016 Comp Metabolic Lxo838 AST(SGOT) 17 U/L 10/13/2016 Comp Metabolic Gku449 ALT(SGPT) 14 U/L 10/13/2016 Comp Metabolic Ams325 BILI T 0.9 mg/dL 10/13/2016 Comp Metabolic Umb105 ALBUMIN 4.4 g/dL 10/13/2016 Comp Metabolic Zjg679 TPRO 7.1 g/dL 10/13/2016 Comp Metabolic Mxh702 GLOB 2.7 g/dL 10/13/2016 Comp Metabolic Pio820 A/G Ratio 1.6 Ratio 10/13/2016 Comp Metabolic Ufb652 Osmo 278 mOsmo 10/13/2016 Cbc With Differential [...] 29.7 pg 10/13/2016 Cbc With Differential Ord2 [place]% 7.7 % 10/13/2016 Cbc With Differential Ord2 [...] 1.43 K/ul 10/13/2016 Cbc With Differential Ord2 [place] ABS# 0.5 K/ul 10/13/2016 Cbc With Differential Ord2 Eos ABS# 0.1 K/ul 10/13/2016 Cbc With Differential Ord2 Baso ABS# 0.0 K/ul 10/13/2016 Free T4 Hui376 FREE T4 1.31 ng/dL 08/17/2016 Tsh Ord6 hTSH II 0.64 uIU/mL 08/17/2016 Free T4 Lvr521 FREE T4 1.49 ng/dL 05/10/2016 Comp Metabolic Ezv877 NA 139 mEq/L 05/10/2016 Comp Metabolic Vqu905 K 4.5 mEq/L 05/10/2016 Comp Metabolic Yop443 CL 104 mEq/L 05/10/2016 Comp Metabolic Qmy937 CO2 24.0 mEq/L 05/10/2016 Comp Metabolic Fob548 ANION GAP 16 05/10/2016 Comp Metabolic Nmh300 GLUCOSE 87 mg/dL 05/10/2016 Comp Metabolic Oex450 Creat 0.9 mg/dL 05/10/2016 Comp Metabolic Mnt805 eGFR 71 ml/min/1.73m2 05/10/2016 Comp Metabolic Pqz490 BUN 12 mg/dL 05/10/2016 Comp Metabolic Rff683 B/C Ratio 14.1 Ratio 05/10/2016 Comp Metabolic Ajs422 CALCIUM 9.6 mg/dL 05/10/2016 Comp Metabolic Uvx557 ALK PHOS 89 U/L 05/10/2016 Comp Metabolic Oql756 AST(SGOT) 17 U/L 05/10/2016 Comp Metabolic Zrm812 ALT(SGPT) 17 U/L 05/10/2016 Comp Metabolic Tgu449 BILI T 0.9 mg/dL 05/10/2016 Comp Metabolic Txi057 ALBUMIN 4.2 g/dL 05/10/2016 Comp Metabolic Yhb363 TPRO 6.7 g/dL 05/10/2016 Comp Metabolic Ewh325 GLOB 2.5 g/dL 05/10/2016 Comp Metabolic Ube416 A/G Ratio 1.7 Ratio 05/10/2016 Comp Metabolic Tdc149 Osmo 277 mOsmo 05/10/2016 Cbc With Differential [...] 23.8 % 05/10/2016 Cbc With Differential Ord2 [place]% 8.3 % 05/10/2016 Cbc With Differential Ord2 [...] 1.57 K/ul 05/10/2016 Cbc With Differential Ord2 [place] ABS# 0.6 K/ul 05/10/2016 Cbc With Differential Ord2 Eos ABS# 0.2 K/ul 05/10/2016 Cbc With Differential Ord2 Baso ABS# 0.0 K/ul 05/10/2016 Tsh Ord6 hTSH II 0.03 uIU/mL 05/10/2016 Tsh Ord6 hTSH II 0.06 uIU/mL 02/18/2016 Comp Metabolic Cxa165 NA 138 mEq/L 02/18/2016 Comp Metabolic Xub006 K 4.5 mEq/L 02/18/2016 Comp Metabolic Wel292 CL 104 mEq/L 02/18/2016 Comp Metabolic Gvz901 CO2 26.0 mEq/L 02/18/2016 Comp Metabolic Tbn844 ANION GAP 13 02/18/2016 Comp Metabolic Peq334 GLUCOSE 88 mg/dL 02/18/2016 Comp Metabolic Inl103 Creat 0.9 mg/dL 02/18/2016 Comp Metabolic Ajy866 eGFR 69 ml/min/1.73m2 02/18/2016 Comp Metabolic Ydm392 BUN 14 mg/dL 02/18/2016 Comp Metabolic Wge057 B/C Ratio 16.1 Ratio 02/18/2016 Comp Metabolic Ipi454 CALCIUM 9.4 mg/dL 02/18/2016 Comp Metabolic Dio053 ALK PHOS 95 U/L 02/18/2016 Comp Metabolic Dun553 AST(SGOT) 19 U/L 02/18/2016 Comp Metabolic Aiq141 ALT(SGPT) 18 U/L 02/18/2016 Comp Metabolic Vfb430 BILI T 0.7 mg/dL 02/18/2016 Comp Metabolic Vbs330 ALBUMIN 4.4 g/dL 02/18/2016 Comp Metabolic Mar249 TPRO 6.9 g/dL 02/18/2016 Comp Metabolic Foo238 GLOB 2.5 g/dL 02/18/2016 Comp Metabolic Kyz666 A/G Ratio 1.7 Ratio 02/18/2016 Comp Metabolic Aiy947 Osmo 276 mOsmo 02/18/2016 Lipid Ord30 CHOL [...] 18.8 % 02/18/2016 Cbc With Differential Ord2 [place]% 10.5 % 02/18/2016 Cbc With Differential Ord2 [...] 1.08 K/ul 02/18/2016 Cbc With Differential Ord2 [place] ABS# 0.6 K/ul 02/18/2016 Cbc With Differential Ord2 Eos ABS# 0.0 K/ul 02/18/2016 Cbc With Differential Ord2 Baso ABS# 0.0 K/ul 02/18/2016 Free T4 Ukr688 FREE T4 1.67 ng/dL 02/18/2016 Comp Metabolic Xkr065 NA 136 mEq/L 06/08/2015 Comp Metabolic Qfy365 K 3.9 mEq/L 06/08/2015 Comp Metabolic Vpq624 CL 103 mEq/L 06/08/2015 Comp Metabolic Ouq176 CO2 25.0 mEq/L 06/08/2015 Comp Metabolic Kdz834 ANION GAP 12 06/08/2015 Comp Metabolic Whs522 GLUCOSE 91 mg/dL 06/08/2015 Comp Metabolic Vwh276 Creat 0.9 mg/dL 06/08/2015 Comp Metabolic Mdk212 eGFR 68 ml/min/1.73m2 06/08/2015 Comp Metabolic Oqq141 BUN 10 mg/dL 06/08/2015 Comp Metabolic Lay151 B/C Ratio 11.4 Ratio 06/08/2015 Comp Metabolic Ysj501 CALCIUM 9.4 mg/dL 06/08/2015 Comp Metabolic Hfn735 ALK PHOS 88 U/L 06/08/2015 Comp Metabolic Ypx084 AST(SGOT) 20 U/L 06/08/2015 Comp Metabolic Sii238 ALT(SGPT) 18 U/L 06/08/2015 Comp Metabolic Jjs201 BILI T 0.8 mg/dL 06/08/2015 Comp Metabolic Evf255 ALBUMIN 4.4 g/dL 06/08/2015 Comp Metabolic Eht534 TPRO 7.0 g/dL 06/08/2015 Comp Metabolic Boc530 GLOB 2.6 g/dL 06/08/2015 Comp Metabolic Yjb588 A/G Ratio 1.7 Ratio 06/08/2015 Comp Metabolic Ccz933 Osmo 271 mOsmo 06/08/2015 Tsh Ord6 hTSH [...] Ord2 RDW 14.4 % 06/08/2015 LYME EIA [id number] LYME EIA 0.24 04/25/2014 TULAREM AB [id number] TULAREM AB <1:20 04/24/2014 RMSF IFA 7191665 IGG RMSF <1:16 04/24/2014 RMSF IFA [id number] IGM RMSF <1:10 04/24/2014 E CHAFF AB [id number] IGG E CHFF <1:16 04/24/2014 E CHAFF AB [id number] IGM E CHFF <1:10 04/24/2014 ICT OCCULT 2452502 ICT OCCULT NEG 10/11/2013 Review of Systems [...] clear 12/05/2013 None Full Exam - General 1995 Ears/Nose/Throat [...] FLU VACC PRSV FREE INC ANTIG CPT-4: 11162 06/07/2017 PPPS, SUBSEQ VISIT CPT- 4: G0439 11/17/2016 TRIAMCINOLONE ACET INJ NOS CPT-4: J3301 09/05/2016 PPPS, SUBSEQ VISIT CPT- 4: G0439 11/13/2015 PNEUMOCOCCAL VACC 13 STEPHANIE IM Formatting Model/CDA Sections, Assigned to/Lila Colon SNOMED CT: 31123320 CPT-4: 90953Ibrgxka 11/13/2015 ADMIN PNEUMOCOCCAL VACCINE SNOMED CT: 28751593 CPT-4: G0009 11/13/2015 ROCEPHIN, PER 250 MG CPT- 4: J0696 07/23/2015 URINALYSIS NONAUTO W/O SCOPE CPT-4: 98496 10/10/2014 ROUTINE VENIPUNCTURE CPT- 4: 12559 04/23/2014 Pneumococcal Polysaccharide Vaccine, 23-Valent, Ad CPT-4: 99959 04/15/2014 ADMIN INFLUENZA VIRUS VAC CPT-4: G0008 04/15/2014 FLU VAC NO PRSV 4 STEPHANIE 3 YRS+ CPT-4: 55452 04/15/2014 ADMIN PNEUMOCOCCAL VACCINE SNOMED CT: 29938062 CPT-4: G0009 04/15/2014 THER/PROPH/DIAG INJ SC/IM CPT-4: 53198 02/11/2014 TRIAMCINOLONE ACET INJ NOS CPT-4: J3301 02/11/2014 TRIAMCINOLONE ACET INJ NOS CPT-4: J3301 01/21/2014 INITIAL PREVENTIVE EXAM CPT-4: G0402 09/30/2013 PRESCRIP TRANSMIT VIA ERX SY CPT-4: G8553 03/13/2013 Vital Signs Date Vital 08/29/2017 Blood Pressure 1: 146/80 Code: 8480-6 BMI: 29.5 Code: 20688-0 Heart Rate 1: 68 bpm Height: 5'5" SpO2: 98% Temperature: 36.6 (C) / 97.8 (F) Weight: 177 lbs 06/13/2017 Blood Pressure 1: 138/76 Code: 8480-6 BMI: 29.6 Code: 82329-8 Heart Rate 1: 63 bpm Height: 5'5" SpO2: 95% Weight: 178 lbs 02/16/2017 Blood Pressure 1: 128/80 Code: 8480-6 BMI: 29.9 Code: 59556-3 Heart Rate 1: 77 bpm Height: 5'5" SpO2: 96% Weight: 179 lbs 8 oz 02/06/2017 Blood Pressure 1: 140/80 Code: 8480-6 BMI: 29.8 Code: 04235-4 Heart Rate 1: 72 bpm Height: 5'5" SpO2: 97% Weight: 179 lbs 11/17/2016 Blood Pressure 1: 130/72 Code: 8480-6 BMI: 29.6 Code: 21578-0 Heart Rate 1: 62 bpm Height: 5'5" SpO2: 98% Waist Measure (cm): 91 cm Weight: 178 lbs 10/12/2016 Blood Pressure 1: 128/78 Code: 8480-6 BMI: 28.5 Code: 17352-1 Heart Rate 1: 62 bpm Height: 5'5" SpO2: 97% Weight: 171 lbs 09/05/2016 Blood Pressure 1: 122/70 Code: 8480-6 BMI: 28.0 Code: 11854-0 Heart Rate 1: 65 bpm Height: 5'5" SpO2: 94% Weight: 168 lbs 06/21/2016 Blood Pressure 1: 120/82 Code: 8480-6 BMI: 28.3 Code: 13857-7 Heart Rate 1: 65 bpm Height: 5'5" SpO2: 97% Weight: 170 lbs 05/24/2016 Blood Pressure 1: 136/80 Code: 8480-6 BMI: 28.1 Code: 49195-2 Heart Rate 1: 71 bpm Height: 5'5" SpO2: 96% Weight: 169 lbs 05/10/2016 Blood Pressure 1: 120/82 Code: 8480-6 BMI: 27.6 Code: 37357-3 Heart Rate 1: 86 bpm Height: 5'5" SpO2: 95% Weight: 166 lbs 05/03/2016 Blood Pressure 1: 124/78 Code: 8480-6 BMI: 28.1 Code: 48218-9 Heart Rate 1: 88 bpm Height: 5'5" SpO2: 97% Weight: 169 lbs 11/13/2015 Blood Pressure 1: 130/60 Code: 8480-6 BMI: 30.0 Code: 11191-8 Heart Rate 1: 7 bpm Height: 5'5" Waist Measure (cm): 97 cm Weight: 180 lbs 07/23/2015 Blood Pressure 1: 124/70 Code: 8480-6 BMI: 29.6 Code: 95063-2 Heart Rate 1: 74 bpm Height: 5'5" SpO2: 96% Temperature: 36.7 (C) / 98.1 (F) Weight: 178 lbs 07/06/2015 Blood Pressure 1: 138/78 Code: 8480-6 BMI: 29.6 Code: 68638-3 Heart Rate 1: 84 bpm Height: 5'5" SpO2: 96% Weight: 178 lbs 05/26/2015 Blood Pressure 1: 122/80 Code: 8480-6 BMI: 29.6 Code: 75710-7 Heart Rate 1: 84 bpm Height: 5'5" Weight: 178 lbs 02/16/2015 Blood Pressure 1: 124/82 Code: 8480-6 BMI: 29.0 Code: 12244-6 Heart Rate 1: 68 bpm Height: 5'5" Weight: 174 lbs 12/10/2014 Blood Pressure 1: 112/64 Code: 8480-6 BMI: 28.6 Code: 61039-9 Heart Rate 1: 80 bpm Height: 5'5" Weight: 172 lbs 10/16/2014 Blood Pressure 1: 128/84 Code: 8480-6 Heart Rate 1: 64 bpm Weight: 172 lbs 10/09/2014 Blood Pressure 1: 136/90 Code: 8480-6 BMI: 28.6 Code: 16589-3 Heart Rate 1: 76 bpm Height: 5'5" Weight: 172 lbs 08/26/2014 Blood Pressure 1: 118/72 Code: 8480-6 BMI: 29.0 Code: 66435-2 Heart Rate 1: 76 bpm Height: 5'5" Weight: 174 lbs 05/16/2014 Blood Pressure 1: 110/72 Code: 8480-6 BMI: 29.0 Code: 32319-3 Height: 5'5" Weight: 174 lbs 04/23/2014 Blood Pressure 1: 124/70 Code: 8480-6 BMI: 29.0 Code: 94336-0 Heart Rate 1: 72 bpm Height: 5'5" Weight: 174 lbs 04/15/2014 Temperature: 36.5 (C) / 97.7 (F) 01/21/2014 Blood Pressure 1: 98/62 Code: 8480-6 BMI: 29.0 Code: 55719- 5 Heart Rate 1: 84 bpm Height: 5'5" Temperature: 37.1 (C) / 98.7 (F) Weight: 174 lbs 12/05/2013 Blood Pressure 1: 138/88 Code: 8480-6 BMI: 29.0 Code: 45040-8 Heart Rate 1: 60 bpm Height: 5'5" Weight: 174 lbs 11/05/2013 Blood Pressure 1: 118/80 Code: 8480-6 BMI: 28.8 Code: 75559-5 Heart Rate 1: 76 bpm Height: 5'5" Weight: 173 lbs 10/15/2013 Blood Pressure 1: 120/78 Code: 8480-6 BMI: 29.1 Code: 24439-9 Heart Rate 1: 88 bpm Height: 5'5" Weight: 175 lbs 09/30/2013 Blood Pressure 1: 112/84 Code: 8480-6 BMI: 29.1 Code: 30674-1 Heart Rate 1: 68 bpm Height: 5'5" Weight: 175 lbs 03/13/2013 Blood Pressure 1: 112/84 Code: 8480-6 BMI: 28.6 Code: 44251-6 Heart Rate 1: 64 bpm Height: 5'5" Weight: 173 lbs 10/04/2012 Blood Pressure 1: 120/72 Code: 8480-6 BMI: 28.0 Code: 55134-1 Heart Rate 1: 64 bpm Height: 5'5" Weight: 169 lbs 08/22/2011 Blood Pressure 1: 134/84 Code: 8480-6 BMI: 27.5 Code: 45576-3 Heart Rate 1: 68 bpm Height: 5'5" Respiratory Rate: 16 bpm Weight: 166 lbs 8 oz 06/17/2011 Blood Pressure 1: 120/76 Code: 8480-6 BMI: 27.0 Code: 01931-4 Heart Rate 1: 58 bpm Height: 5'5" [...] Other allergic rhinitis[ICD10: J30.89] Gina Alvarado MD, [facility] CPT- 4: 51413 08/29/2017 ([id number]) 28437 EST. PATIENT, LEVEL IV Diagnosis: Postprocedural hypothyroidism[ICD10: E89.0] Diagnosis: Major depressive disorder, recurrent, moderate[ICD10: F33.1] Diagnosis: Generalized anxiety disorder[ICD10: F41.1] Elina Alvarado MD, [facility] CPT-4: 63395 06/13/2017 ([id number]) 39475 EST. PATIENT, LEVEL IV Diagnosis: Pelvic and perineal pain[ICD10: R10.2] Diagnosis: Acute vaginitis[ICD10: N76.0] [facility] CPT-4: 96240 02/16/2017 ([id number]) 57457 EST. PATIENT, LEVEL III Diagnosis: Postprocedural hypothyroidism[ICD10: E89.0] Diagnosis: Major depressive disorder, recurrent, moderate[ICD10: F33.1] Elina Alvarado MD, [facility] CPT-4: 87122 02/06/2017 ([id number]) 01140 EST. PATIENT, LEVEL III Diagnosis: Generalized anxiety disorder[ICD10: F41.1] Elina Alvardao MD, [facility] CPT-4: 37159 10/12/2016 ([id number]) 09918 EST. PATIENT, LEVEL III Diagnosis: Cough[ICD10: R05] Diagnosis: Acute upper respiratory infection, unspecified[ICD10: J06.9] Suma Alvarado MD, [facility] CPT-4: 79514 09/05/2016 ([id number]) 80579 EST. PATIENT, LEVEL III Diagnosis: Generalized anxiety disorder[ICD10: F41.1] Diagnosis: Major depressive disorder, recurrent, moderate[ICD10: F33.1] Diagnosis: Postprocedural hypothyroidism[ICD10: E89.0] Elina Alvarado MD, [facility] CPT-4: 13962 06/21/2016 ([id number]) 97839 EST. PATIENT, LEVEL III Diagnosis: Major depressive disorder, recurrent, moderate[ICD10: F33.1] Elina Alvarado MD, [facility] CPT-4: 66889 05/24/2016 ([id number]) 07152 EST. PATIENT, LEVEL III Diagnosis: Major depressive disorder, recurrent, moderate[ICD10: F33.1] Elina Alvarado MD, [facility] CPT-4: 45304 05/10/2016 ([id number]) 35412 EST. PATIENT, LEVEL III Diagnosis: Generalized anxiety disorder[ICD10: F41.1] Diagnosis: Major depressive disorder, recurrent, moderate[ICD10: F33.1] Suma Alvarado MD, [facility] CPT-4: 79072 05/03/2016 ([id number]) 48720 EST. PATIENT, LEVEL III Diagnosis: Cough[ICD10: R05] Diagnosis: Acute upper respiratory infection, unspecified[ICD10: J06.9] Suma Alvarado MD, [facility] CPT-4: 71469 07/23/2015 ([id number]) 54831 EST. PATIENT, LEVEL III Diagnosis: Hypothyroidism, unspecified[ICD10: E03.9] Diagnosis: Generalized anxiety disorder[ICD10: F41.1] Diagnosis: Other depressive episodes[ICD10: F32.8] Elina Alvarado MD, [facility] CPT-4: 97405 07/06/2015 ([id number]) 08909 EST. PATIENT, LEVEL IV Diagnosis: Generalized anxiety disorder[ICD10: F41.1] Diagnosis: Major depressive disorder, recurrent, unspecified[ICD10: F33.9] Elina Alvarado MD, [facility] CPT-4: 44993 05/26/2015 ([id number]) 44832 EST. PATIENT, LEVEL II Diagnosis: 2Nd degree burn of multiple fingers of right hand not including thumb[ICD9: 944.23] Suma Alvarado MD, [facility] CPT-4: 96388 02/16/2015 ([id number]) 62416 EST. PATIENT, LEVEL IV Diagnosis: Hammertoe[ICD9: 735.4] Diagnosis: Foot pain[ICD9: 729.5] Diagnosis: HYPOTHYROIDISM[ICD9: 244.9] Elina Alvarado MD, [facility] CPT-4: 21652 12/10/2014 ([id number]) 56472 EST. PATIENT, LEVEL III Diagnosis: Urinary incontinence[ICD9: 788.30] Diagnosis: Pelvic pain in female[ICD9: 625.9] Elina Alvarado MD, [facility] CPT- 4: 40598 10/16/2014 ([id number]) 42985 EST. PATIENT, LEVEL III Diagnosis: Urinary incontinence[ICD9: 788.30] Diagnosis: Pelvic pain in female[ICD9: 625.9] Suma Alvarado MD [facility] CPT- 4: 76465 10/09/2014 ([id number]) 29114 EST. PATIENT, LEVEL III Diagnosis: HYPOTHYROIDISM[ICD9: 244.9] Elina Alvarado MD, [facility] CPT-4: 46588 08/26/2014 ([id number]) 68878 EST. PATIENT, LEVEL III Diagnosis: Neck pain[ICD9: 723.1] Diagnosis: Muscle tension headache[ICD9: 307.81] Suma Alvarado MD, [facility] CPT-4: 30558 05/16/2014 ([id number]) 82336 EST. PATIENT, LEVEL IV Diagnosis: Arthropod bite[ICD9: 919.4] Diagnosis: Poison diana dermatitis[ICD9: 692.6] Diagnosis: Arthralgia[ICD9: 719.40] Diagnosis: Myalgia[ICD9: 729.1] Elina Alvarado MD, [facility] CPT-4: 03782 04/23/2014 ([id number]) 05356 EST. PATIENT, LEVEL III Diagnosis: ACUTE URI[ICD9: 465.9] Diagnosis: COUGH[ICD9: 786.2] Suma Alvarado MD, [facility] CPT-4: 34342 01/21/2014 ([id number]) 55205 EST. PATIENT, LEVEL III Diagnosis: HYPOTHYROIDISM[ICD9: 244.9] Diagnosis: GENERALIZED ANXIETY DISEASE[ICD9: 300.02] Elina Alvarado MD, [facility] CPT-4: 62003 12/05/2013 ([id number]) 51435 EST. PATIENT, LEVEL III Diagnosis: GENERALIZED ANXIETY DISEASE[ICD9: 300.02] Diagnosis: DEPRESSIVE DISORDER NEC[ICD9: 311] Elina Alvarado MD, [facility] CPT- 4: 07034 11/05/2013 ([id number]) 47577 EST. PATIENT, LEVEL III Diagnosis: HYPOTHYROIDISM[ICD9: 244.9] Elina Alvarado MD [facility] CPT-4: 33864 10/15/2013 ([id number]) Miscellaneous no charge Diagnosis: Colon cancer screening[ICD9: V76.51] Elina Alvarado MD [facility] CPT- 4: 84889 10/10/2013 ([id number]) 61069 EST. PATIENT, LEVEL IV Diagnosis: HYPOTHYROIDISM[ICD9: 244.9] Diagnosis: DEPRESSIVE DISORDER NEC[ICD9: 311] Diagnosis: GENERALIZED ANXIETY DISEASE[ICD9: 300.02] Diagnosis: HYPERLIPIDEMIA[ICD9: 272.4] Elina Alvarado MD, [facility] CPT-4: 82191 03/13/2013 ([id number]) 43400 EST. PATIENT, LEVEL IV Diagnosis: HYPERLIPIDEMIA[ICD9: 272.4] Diagnosis: HYPOTHYROIDISM[ICD9: 244.9] Diagnosis: GENERALIZED ANXIETY DISEASE[ICD9: 300.02] Diagnosis: DEPRESSIVE DISORDER NEC[ICD9: 311] [facility] CPT- 4: 86120 10/04/2012 ([id number]) 47405 EST. PATIENT, LEVEL III Diagnosis: VICTOR HUGO (generalized anxiety disorder)[ICD9: 300.02] Diagnosis: Chronic depression[ICD9: 311] [facility] CPT-4: 13924 08/22/2011 62840 EST. PATIENT, LEVEL IV Diagnosis: CHEST PAIN NEC[ICD9: 786.59] Diagnosis: HYPERLIPIDEMIA[ICD9: 272.4] Diagnosis: POSTSURGICAL HYPOTHYROIDISM[ICD9: 244.0] [facility] CPT-4: 58518 06/17/2011 Plan of Care Planned Activity Notes [...] allergy spray. 08/29/2017 Appointment: Gina Kern WPtel: [address] [place], [place] [id number] (15 min) Moderate 08/29/2017 Patient Education: Patient [...] counseling. 06/13/2017 App[facility]ment[phone] [place] (15 min) Moderate 06/13/2017 Patient [...] 02/16/2017 [facility]ment[phone] [place] (30 min) Complex 02/16/2017 Patient Education: [...] medications. 02/06/2017 Appointment: [phone] [facility] [place] (15 min) Moderate 02/06/2017 Patient [...] care surrogate. 11/17/2016 Appointment: Gina Kern WPtel: [facility] [facility] - Annual Wellness Visit 11/17/2016 [...] current medications. 10/12/2016 Appointment: Elina Alvarado WPtel: [facility] (15 min) Moderate 10/12/2016 Patient Education: [...] : J06.9 09/05/2016 Appointment: Suma Choi WPtel: [phone] (10 min) Simple 09/05/2016 Patient Education: Patient [...] with lexapro 06/21/2016 Appointment: Elina Alvarado WPtel[facility] (15 min) Moderate 06/21/2016 Patient Education: Patient Medication Summary Completed 06/21/2016 Visit Plan: Depression - improved with lexapro - continue with current treatment and counseling. 05/24/2016 Appointment: Elina Alvarado WPtel: [facility] (15 min) Moderate 05/24/2016 Patient Education: Patient Medication Summary Completed 05/24/2016 Visit Plan: Depression - improved on the Lexapro - stop ativan - start on xanax 05/10/2016 Appointment: Elina Alvarado WPtel: [facility] (15 min) Moderate 05/10/2016 Patient Education: [...] Summary Completed 05/03/2016 Appointment: Suma Choi WPtel: [phone] [place] (15 min) Moderate 02/26/2016 Visit Plan: [...] and to maintain independece in the home. Upzzsudggy-ckjiyffbnzsx-zoaybr to wellbutrin Pneumonia 13 administered today in [...] and to maintain independece in the home. Twtwmuuowg-pxahpkhcbqnl-noteiy to wellbutrin Pneumonia 13 administered today in the office 11/13/2015 Appointment: [facility] - Annual Wellness Visit 11/13/2015 Patient Education: Patient Medication Summary Completed 11/13/2015 Patient Education: Obesity Completed 11/13/2015 Care Plan: SCREENINGMAMMOGRAPHYDIGITAL LOINC : 36885-3 Ordered 11/13/2015 Appointment: Lab Draw 08/10/2015 Visit [...] current medications. 07/06/2015 Appointment: Elina Alvarado WPtel: [address] [place], [place] [id number] (30 min) [facility] 07/06/2015 Patient Education: Patient Medication Summary Completed [...] upon discharge. 12/10/2014 Appointment: Elina Alvarado WPtel: [address] [place], [place] [phone] Surgical Clearance 12/10/2014 Patient Education: Patient Medication Summary Completed 12/10/2014 Visit Plan: Urinary incontinence and Pelvic discomfort - recommended pt to have evaluation by Dr. Brandt - pt agreeable to referral. Pt is to call if abdominal pain does not improve. 10/16/2014 Appointment: Elina Alvarado WPtel: [facility] Follow up 10/16/2014 Patient Education: Patient Medication Summary Completed 10/16/2014 Care Plan: Referral Order SNOMED-CT : [id number] Ordered 10/16/2014 Patient Education: Patient Medication Summary Completed 10/10/2014 Visit Plan: Pelvic pain-history of mesh implant-recommend CT abd/pelvis to evaluate for any abnormality-refer to Dr Woods if pain does not improve Urinary incontinence-check UA with C&S if indicated 10/09/2014 Patient Education: Patient Medication Summary Completed 10/09/2014 Care Plan: CT ABD & PELV 1/> REGNS LOINC : 69843-9 Ordered 10/09/2014 Visit Plan: Hypothyroidism - pt with chronic hypothyroidism, continue with current medication, will monitor pt to signs or symptoms of lack of adequate supplementation. Pt is to continue with current dose of medication unless directed otherwise. Check labs at regular intervals wither q 3 months or q 6 months based on previous levels of control. 08/26/2014 Appointment: Elina Alvarado WPtel: [address] [place], [place] [phone] Follow up 08/26/2014 Patient Education: Patient Medication [...] with screening. 04/23/2014 Appointment: Elina Alvarado WPtel: [facility] Sick 04/23/2014 Patient Education: Patient Medication Summary Completed 04/23/2014 Care Plan: Referral Order SNOMED-CT : [id number] Ordered 04/23/2014 Appointment: Nurse Visit 04/15/2014 Patient Education: Patient Medication Summary Completed 04/15/2014 Appointment: Elina Alvarado WPtel: [address] [place], [place] [phone] [place] Injection 02/11/2014 Patient Education: Patient Medication [...] treatment. 12/05/2013 Appointment: Elina Alvarado WPtel: [phone] [facility] Follow up 12/05/2013 Patient Education: Patient [...] medications. 11/05/2013 Appointment: Elina Alvarado WPtel: [phone] [facility] Follow up 11/05/2013 Patient Education: Patient [...] of control. 10/15/2013 Appointment: Elina Alvarado WPtel: [facility] [facility] 10/15/2013 Patient Education: Patient [...] surrogate. 09/30/2013 Appointment: Elina Alvarado WPtel: [phone] [facility] [facility] - Initial Preventive Physical Exam 09/30/2013 Patient Education: Patient Medication Summary Completed 09/30/2013 Appointment: Elina Alvarado WPtel: [phone] [facility] [facility] - Initial Preventive Physical Exam 09/11/2013 [...] use. 03/13/2013 Appointment: Elina Alvarado WPtel: [phone] [facility] Follow up 03/13/2013 Patient Education: Patient [...] medications. 10/04/2012 Appointment: [phone] [facility] 10/04/2012 Patient Education: Patient [...] attacks. 08/22/2011 Appointment: [phone] [facility] Other 08/22/2011 Patient Education: Patient Medication Summary Completed 08/22/2011 Visit Plan: check labs appointment with dr ambrocio chest xray, echocardiogram thyroid ultrasound if the chest pain becomes acute, worsens, or does not go away, go to the emergency room HYPERLIPIDEMIA - CONTINUE WITH CURRENT TREATMENT. DISCUSSED DIET CHANGES, NEED LOW FAT DIET. HYPOTHYROIDISM - CONTINUE WITH CURRENT MEDICATIONS, [facility] THYROID ULTRASOUND 06/17/2011 Appointment: [facility]el[phone] [facility] Other 06/17/2011 Patient Education: Patient Medication [...] and to maintain independece in the home. Pdbzrsrihs-ntlzisqsphky-ncodri to wellbutrin Pneumonia 13 administered today in [...] and to maintain independece in the home. Idxxvekdrt-xrvqceovwvml-mqbcfc to wellbutrin Pneumonia 13 administered today in [...] other concerns. Patient verbalized understanding of plan. ROCEPHIN INJECTION TODAY IN THE OFFICE, START [...] steroid allergy spray. . Depression - improved with lexapro - [...] TWICE DAILY . Anxiety and depression uncontrolled-Dr Alvaraod in to evaluate patient-plan to add buspar [...] if abdominal pain does not improve. . Hypothyroidism - pt with chronic hypothyroidism, continue with current medication, will monitor pt to signs or symptoms of lack of adequate supplementation. Pt is to continue with current dose of medication unless directed otherwise. Check labs at regular intervals wither q 3 months or q 6 months based on previous levels of control. . Hypothyroidism - pt with chronic hypothyroidism, [...]
--- OUTSIDE RECORDS SUMMARY | 2018-12-27 10:20 | XMS REPORT | CCD ---
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 Operator Name Role Phone PP Unavailable CCM Unavailable Summary Purpose Interface Exchange Insurance Providers Payer name Policy type / Coverage type Covered republican ID Effective Begin Date Effective End Date WPS Medicare Part B [id number] 2014 Unknown [facility] [id number] 2014 Unknown Family history Sister Diagnosis Age [...] Description Effective Dates Tobacco history SNOMED CT: 2856289 Former smoker quit 2 years ago, social smoker, 1 pack per month 200709/30/2013 Employment Unknown 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 [employer] 03/13/2013 Marital status Unknown 06/17/[address]: 089185 Currently drinks alcohol 2 beers/week 06/17/2011 Has [...] 02/16/2017 Unknown Pelvic and perineal pain ICD-9: [id number] ICD-10: R10.2 Active 02/16/2017 Unknown Encounter for [...] 02/16/2017 Active Pelvic and perineal pain ICD-9: [id number] ICD-10: R10.2 02/16/2017 Active Encounter for general [...] Fill Instructions Tamiflu 75 mg capsule RxNorm: 491235 1 Capsule(s) PO BID 08/29/2017 09/02/2017 Active Synthroid 112 mcg tablet RxNorm: 239379 1 Tablet(s) daily 08/14/2017 12/05/2017 Active fyi - medication changed, refill x 6 - #30 pills Synthroid 112 mcg tablet RxNorm: 904998 1 Tablet(s) daily 06/13/2017 08/13/2017 Inactive fyi - medication changed, refill x 6 - #30 pills Lexapro 20 mg tablet RxNorm: 450499 TAKE ONE TABLET BY MOUTH DAILY 06/09/2017 11/05/2017 Active Synthroid 112 mcg tablet RxNorm: 797020 TAKE 1 TABLET BY MOUTH DAILY EXCEPT TAKE 1/2 TABLET ON MONDAY, MONDAY, AND Monday05/22/2017 06/12/2017 Inactive Lipitor 10 mg tablet RxNorm: 467361 TAKE ONE TABLET BY MOUTH EVERY DAY 03/08/2017 05/31/2018 Active Flagyl 500 mg tablet RxNorm: 906818 1 Tablet(s) PO TID 02/16/2017 02/22/2017 Inactive Xanax 0.5 mg tablet RxNorm: 617058 1 Tablet(s) PO QID as needed anxiety 12/23/2016 03/22/2017 Inactive Synthroid 112 mcg tablet RxNorm: 456469 TAKE 1 TABLET BY MOUTH DAILY EXCEPT FOR TAKE 1/2 TABLET ON MONDAY, MONDAY, AND Monday12/23/2016 04/13/2017 Inactive Lexapro 20 mg tablet RxNorm: 262927 TAKE ONE TABLET BY MOUTH DAILY 11/29/2016 05/27/2017 Inactive Zithromax Z-Que 250 mg tablet RxNorm: 676140 1 Tablet(s) PO UD 09/05/2016 09/09/2016 Inactive zpack Kenalog 40 mg/mL suspension for injection RxNorm: 2242142 1 Milliliter(s) Inj 09/05/2016 09/05/2016 Inactive Lipitor 10 mg tablet RxNorm: 729805 TAKE ONE TABLET BY MOUTH EVERY DAY 08/30/2016 02/25/2017 Inactive Ativan 1 mg tablet RxNorm: 427104 1 Tablet(s) PO Q6 PRN as needed TAKE ONE TABLET BY MOUTH THREE TIMES A DAY OR EVERY 6 HOURS NEEDED FOR ANXIETY 08/30/2016 12/22/2016 Inactive Synthroid 112 mcg tablet RxNorm: 943712 1 Tablet(s) PO daily except one-half tab on Mon/Mon/Sat 08/23/2016 12/12/2016 Inactive will refill when needed Lexapro 20 mg tablet RxNorm: 680702 TAKE ONE TABLET BY MOUTH DAILY 08/02/2016 11/28/2016 Inactive Synthroid 112 mcg tablet RxNorm: 053272 1 Tablet(s) PO daily except 1/2 tab wed and sat 05/25/2016 08/22/2016 Inactive will refill when needed Xanax 0.5 mg tablet RxNorm: 262934 1 Tablet(s) PO QID as needed anxiety 05/10/2016 08/29/2016 Inactive Lexapro 20 mg tablet RxNorm: 254740 1 Tablet(s) PO daily 05/03/2016 07/31/2016 Inactive 1/2 tab x 1 week then increase to a full pill daily buspirone 5 mg tablet RxNorm: 226551 TAKE ONE-HALF TABLET BY MOUTH TWICE A DAY 03/15/2016 05/02/2016 Inactive Synthroid 112 mcg tablet RxNorm: 079941 1 Tablet(s) PO daily 02/25/2016 05/24/2016 Inactive Ativan 1 mg tablet RxNorm: 331117 Tablet(s) TAKE ONE TABLET BY MOUTH THREE TIMES A DAY OR EVERY 6 HOURS NEEDED FOR ANXIETY 02/04/2016 05/08/2016 Inactive Synthroid 125 mcg tablet RxNorm: 256279 TAKE ONE TABLET BY MOUTH TWICE WEEKLY 01/11/2016 02/24/2016 Inactive Synthroid 112 mcg tablet RxNorm: 998479 TAKE ONE TABLET BY MOUTH FIVE DAYS A WEEK 01/11/2016 02/24/2016 Inactive Wellbutrin 75 mg tablet RxNorm: 239864 TAKE ONE TABLET BY MOUTH TWICE A DAY 01/11/2016 05/02/2016 Inactive Ativan 1 mg tablet RxNorm: 994575 TAKE ONE TABLET BY MOUTH THREE TIMES A DAY OR EVERY 6 HOURS NEEDED 12/03/2015 12/27/2015 Inactive Lipitor 10 mg tablet RxNorm: 796643 TAKE ONE TABLET BY MOUTH EVERY DAY 12/03/2015 08/28/2016 Inactive Ativan 1 mg tablet RxNorm: 645143 Tablet(s) TAKE ONE TABLET BY MOUTH THREE TIMES A DAY AND TAKE ONE TABLET BY MOUTH EVERY 6 HOURS NEEDED FOR ANXIETY 12/03/2015 12/02/2015 Inactive (Response to an electronic controlled substance refill request - RxReferenceNumber: [id number]) Wellbutrin 75 mg tablet RxNorm: 735330 1 Tablet(s) PO BID 11/13/2015 01/10/2016 Inactive Ativan 1 mg tablet RxNorm: 326899 Tablet(s) TAKE ONE TABLET BY MOUTH THREE TIMES A DAY AND TAKE ONE TABLET BY MOUTH EVERY 6 HOURS NEEDED FOR ANXIETY 09/23/2015 10/30/2015 Inactive (Response to an electronic controlled substance refill request - RxReferenceNumber: [id number]) buspirone 5 mg tablet RxNorm: 798679 TAKE ONE-HALF TABLET BY MOUTH TWICE A DAY 08/18/2015 03/01/2016 Inactive ceftriaxone 500 mg solution for injection RxNorm: 3622231 Inj 07/23/2015 07/23/2015 Inactive Zithromax Z-Que 250 mg tablet RxNorm: 679494 1 Tablet(s) PO UD 07/23/2015 07/27/2015 Inactive ZPACK buspirone 5 mg tablet RxNorm: 670743 1 Tablet(s) PO daily 07/06/2015 10/03/2015 Inactive buspirone 5 mg tablet RxNorm: 939689 1/2 Tablet(s) PO BID 05/26/2015 07/05/2015 Inactive Lipitor 10 mg tablet RxNorm: 452382 TAKE ONE TABLET BY MOUTH EVERY DAY 04/23/2015 10/19/2015 Inactive Ativan 1 mg tablet RxNorm: 460731 Tablet(s) TAKE ONE TABLET BY MOUTH THREE TIMES A DAY AND TAKE ONE TABLET BY MOUTH EVERY 6 HOURS NEEDED FOR ANXIETY 02/23/2015 04/01/2015 Inactive (Response to an electronic controlled substance refill request - RxReferenceNumber: [id number]) Synthroid 125 mcg tablet RxNorm: 352259 1 Tablet(s) PO UD twice weekly 12/10/2014 06/07/2015 Inactive Synthroid 112 mcg tablet RxNorm: 335442 1 Tablet(s) PO UD TAKE ONE TABLET BY MOUTH 5 days a week 12/10/2014 12/04/2015 Inactive Lexapro 20 mg tablet RxNorm: 986300 1 Tablet(s) PO daily 11/26/2014 11/12/2015 Inactive Lipitor 10 mg tablet RxNorm: 761253 TAKE ONE TABLET BY MOUTH EVERY DAY 10/21/2014 04/18/2015 Inactive amoxicillin 500 mg capsule RxNorm: 422071 1 Capsule(s) PO TID 10/15/2014 10/21/2014 Inactive take probiotic BID x 7 days during abt period amoxicillin 500 mg capsule RxNorm: 734527 1 Capsule(s) PO TID 10/15/2014 10/14/2014 Inactive take probiotic BID x 7 days during abt period Ativan 1 mg tablet RxNorm: 346504 TAKE ONE TABLET BY MOUTH THREE TIMES A DAY AND TAKE ONE TABLET BY MOUTH EVERY 6 HOURS NEEDED FOR ANXIETY 08/21/2014 09/28/2014 Inactive (Response to an electronic controlled substance refill request - RxReferenceNumber: [id number]) Ativan 1 mg tablet RxNorm: 139055 1 Tablet(s) PO tid and Q6 PRN as needed 08/18/2014 08/21/2014 Inactive doxycycline hyclate 100 mg tablet RxNorm: 904904 1 Tablet(s) PO BID 04/23/2014 05/25/2015 Inactive prednisone 10 mg tablets in a dose pack RxNorm: 403781 1 Tablet(s) PO 02/14/2014 05/25/2015 Inactive Kenalog 40 mg/mL suspension for injection RxNorm: 5926931 1 Milliliter(s) Inj 02/11/2014 02/11/2014 Inactive Keflex 500 mg capsule RxNorm: 072513 1 Capsule(s) PO TID 01/21/2014 01/27/2014 Inactive Kenalog 40 mg/mL suspension for injection RxNorm: 5169202 Milliliter(s) Inj 01/21/2014 01/21/2014 Inactive Synthroid 112 mcg tablet RxNorm: 484143 1 Tablet(s) PO daily TAKE ONE TABLET BY MOUTH EVERY DAY 12/05/2013 11/29/2014 Inactive Ativan 1 mg tablet RxNorm: 372853 1 Tablet(s) PO Q6 PRN 11/05/2013 02/02/2014 Inactive Lexapro 20 mg tablet RxNorm: 826328 1 Tablet(s) PO daily 11/05/2013 11/04/2013 Inactive Lexapro 20 mg tablet RxNorm: 263404 1 Tablet(s) PO daily 11/05/2013 10/30/2014 Inactive Lipitor 10 mg tablet RxNorm: 167454 1 Tablet(s) PO QPM TAKE ONE TABLET BY MOUTH EVERY DAY 09/30/2013 10/20/2014 Inactive Lexapro 20 mg tablet RxNorm: 145803 1 Tablet(s) PO daily 09/30/2013 11/04/2013 Inactive Synthroid 125 mcg tablet RxNorm: 945522 1 Tablet(s) PO daily 09/10/2013 12/04/2013 Inactive Synthroid 100 mcg tablet RxNorm: 190644 1 Tablet(s) PO daily TAKE ONE TABLET BY MOUTH EVERY DAY 09/06/2013 09/09/2013 Inactive Lipitor 10 mg tablet RxNorm: 567435 Tablet(s) PO TAKE ONE TABLET BY MOUTH EVERY DAY 08/15/2013 09/29/2013 Inactive Synthroid 100 mcg tablet RxNorm: 853039 1 Tablet(s) PO daily TAKE ONE TABLET BY MOUTH EVERY DAY 04/26/2013 09/05/2013 Inactive Ativan 1 mg tablet RxNorm: 972650 1 Tablet(s) PO Q6 PRN 03/13/2013 No Stop Date Active Synthroid 100 mcg tablet RxNorm: 044789 1 Tablet(s) PO daily TAKE ONE TABLET BY MOUTH EVERY DAY 03/13/2013 04/25/2013 Inactive Lexapro 20 mg tablet RxNorm: 539824 1/2 Tablet(s) PO BID 03/13/2013 09/29/2013 Inactive Synthroid 112 mcg tablet RxNorm: 179572 Tablet(s) PO TAKE ONE TABLET BY MOUTH EVERY DAY 01/08/2013 03/12/2013 Inactive Lexapro 20 mg tablet RxNorm: 716020 Tablet(s) PO TAKE 1/2 TABLET EVERY MORNING AND TAKE ONE TABLET BY MOUTH AT BEDTIME 10/18/2012 03/12/2013 Inactive Lipitor 20 mg tablet RxNorm: 448952 1/2 Tablet(s) PO daily 08/20/2012 02/04/2013 Inactive Lipitor 10 mg tablet RxNorm: 367035 1 Tablet(s) PO daily 05/23/2012 08/19/2012 Inactive Synthroid 112 mcg tablet RxNorm: 287999 1 Tablet(s) PO daily 12/16/2011 01/07/2013 Inactive Synthroid 112 mcg Tab RxNorm: 139513 1 Tablet(s) PO daily 12/16/2011 12/15/2011 Inactive Lipitor 10 mg tablet RxNorm: 639990 1 Tablet(s) PO daily 12/15/2011 05/22/2012 Inactive Synthroid 112 mcg Tab RxNorm: 687808 1 Tablet(s) PO every other day 11/09/2011 12/15/2011 Inactive every other day Synthroid 112 mcg Tab RxNorm: 120997 1 Tablet(s) PO every other day 10/21/2011 11/08/2011 Inactive every other day Synthroid 125 mcg Tab RxNorm: 216596 1 Tablet(s) PO every other day 10/21/2011 12/16/2011 Inactive every other day Lexapro 20 mg tablet RxNorm: 729385 1.5 Tablet(s) PO daily 1/2 pill in AM and 1 pill at bedtime 09/22/2011 04/18/2012 Inactive 1/2 q am 1 q hs diazepam 5 mg Tab RxNorm: 172921 1 Tablet(s) PO daily 1 tab bid prn 09/21/2011 05/17/2012 Inactive Lexapro 20 mg Tab RxNorm: 356745 1.5 Tablet(s) PO daily 1/2 pill in AM and 1 pill at bedtime 08/22/2011 09/21/2011 Inactive diazepam 5 mg Tab RxNorm: 820091 1 Tablet(s) PO daily 1 tab bid prn 06/20/2011 09/20/2011 Inactive diazepam 5 mg Tab RxNorm: 331502 1 Tablet(s) PO daily 1 tab bid prn 06/20/2011 06/19/2011 Inactive diazepam 5 mg Tab RxNorm: 723901 1 Tablet(s) PO daily 1 tab bid prn 06/17/2011 06/19/2011 Inactive Lipitor 10 mg Tab RxNorm: 360034 1 Tablet(s) PO daily 05/31/2011 11/26/2011 Inactive diazepam 5 mg Tab RxNorm: 547490 1 Tablet(s) PO BID 1 tab bid prn 04/21/2011 05/20/2011 Inactive Calcium 600 + D(3) Oral RxNorm: Oral No Start Date Active Menest 0.625 mg Tab RxNorm: 836812 1 Tablet(s) PO daily No Start Date 06/16/2011 Inactive Synthroid 125 mcg tablet RxNorm: 489719 Tablet(s) PO No Start Date 09/09/2013 Inactive Ativan 1 mg tablet RxNorm: 174424 1 Tablet(s) PO Q6 PRN No Start Date 08/21/2011 Inactive aspirin 81 mg Tab, Delayed Release RxNorm: 2304983 1 Tablet(s) PO daily No Start Date 09/29/2013 Inactive Lexapro 10 mg Tab RxNorm: 458768 1 Tablet(s) PO daily No Start Date 08/22/2011 Inactive prednisone 10 mg tablets in a dose pack RxNorm: 132589 1 Tablet(s) PO No Start Date 02/13/2014 Inactive Synthroid 112 mcg Tab RxNorm: 724644 Tablet(s) PO tu/th/sat/sun No Start Date 10/20/2011 Inactive lorazepam 1 mg Tab RxNorm: 297179 Tablet(s) PO Q6 PRN No Start Date 11/04/2013 Inactive Lipitor 20 mg tablet RxNorm: 107044 1/2 Tablet(s) PO daily No Start Date 08/20/2012 Inactive Vitamin D2 oral RxNorm: oral No Start Date 09/29/2013 Inactive Synthroid 125 mcg Tab RxNorm: 813482 1 Tablet(s) PO No Start Date 10/20/2011 Inactive synthroid 112 mcg tue thur sat sun Medication Administered Medication Codes Instructions Start Date Status Kenalog 40 mg/mL suspension for injection RxNorm: 4647516 1Milliliter 09/05/2016 No longer Active ceftriaxone 500 mg solution for injection RxNorm: 3345158 07/23/2015 No longer Active Kenalog 40 mg/mL suspension for injection RxNorm: 6844728 1Milliliter 02/11/2014 No longer Active Kenalog 40 mg/mL suspension for injection RxNorm: 1462391 Milliliter 01/21/2014 No longer Active Immunizations Vaccine [...] Pelvic and perineal pain ICD-10: R10.2 ICD-9: [id number] 02/16/2017 Acute vaginitis ICD-10: N76.0 ICD-9: 623.5 [...] hTSH II 4.83 uIU/mL 06/07/2017 Comp Metabolic Wuz116 NA 141 mEq/L 06/07/2017 Comp Metabolic Vff752 K 4.3 mEq/L 06/07/2017 Comp Metabolic Poi518 CL 106 mEq/L 06/07/2017 Comp Metabolic Sei950 CO2 26.0 mEq/L 06/07/2017 Comp Metabolic Pxn545 ANION GAP 13 06/07/2017 Comp Metabolic Kpr779 GLUCOSE 93 mg/dL 06/07/2017 Comp Metabolic Tcz078 Creat 0.9 mg/dL 06/07/2017 Comp Metabolic Hpf965 eGFR 65 ml/min/1.73m2 06/07/2017 Comp Metabolic Kbw267 BUN 10 mg/dL 06/07/2017 Comp Metabolic Xdt401 B/C Ratio 11.0 Ratio 06/07/2017 Comp Metabolic Kqb447 CALCIUM 8.9 mg/dL 06/07/2017 Comp Metabolic Fdb732 ALK PHOS 69 U/L 06/07/2017 Comp Metabolic Gef581 AST(SGOT) 18 U/L 06/07/2017 Comp Metabolic Uyr602 ALT(SGPT) 15 U/L 06/07/2017 Comp Metabolic Pbt684 BILI T 0.5 mg/dL 06/07/2017 Comp Metabolic Otc795 ALBUMIN 4.1 g/dL 06/07/2017 Comp Metabolic Duh509 TPRO 6.5 g/dL 06/07/2017 Comp Metabolic Uss304 GLOB 2.4 g/dL 06/07/2017 Comp Metabolic Bgr849 A/G Ratio 1.7 Ratio 06/07/2017 Comp Metabolic Hqc510 Osmo 280 mOsmo 06/07/2017 Cbc With Differential [...] 30.7 pg 06/07/2017 Cbc With Differential Ord2 Ray% 9.1 % 06/07/2017 Cbc With Differential Ord2 [...] 1.62 K/ul 06/07/2017 Cbc With Differential Ord2 Ray ABS# 0.5 K/ul 06/07/2017 Cbc With Differential Ord2 Eos ABS# 0.2 K/ul 06/07/2017 Cbc With Differential Ord2 Baso ABS# 0.0 K/ul 06/07/2017 Free T4 Zvs112 FREE T4 0.92 ng/dL 06/07/2017 Tsh Ord6 hTSH II 1.07 uIU/mL 11/17/2016 Free T4 Sui547 FREE T4 1.02 ng/dL 11/17/2016 Lipid Ord30 CHOL 195 mg/dL 10/13/2016 Lipid Ord30 HDL 68.0 mg/dl 10/13/2016 Lipid Ord30 TRIG 69 mg/dL 10/13/2016 Lipid Ord30 LDL 113 mg/dL 10/13/2016 Lipid Ord30 C/HDL 2.9 Ratio 10/13/2016 Comp Metabolic Ekl665 NA 138 mEq/L 10/13/2016 Comp Metabolic Bng675 K 4.4 mEq/L 10/13/2016 Comp Metabolic Yao665 CL 102 mEq/L 10/13/2016 Comp Metabolic Hyd176 CO2 29.0 mEq/L 10/13/2016 Comp Metabolic Ccv835 ANION GAP 11 10/13/2016 Comp Metabolic Xkm012 GLUCOSE 85 mg/dL 10/13/2016 Comp Metabolic Egh109 Creat 1.0 mg/dL 10/13/2016 Comp Metabolic Rsq967 eGFR 59 ml/min/1.73m2 10/13/2016 Comp Metabolic Obi928 BUN 21 mg/dL 10/13/2016 Comp Metabolic Pql119 B/C Ratio 21.2 Ratio 10/13/2016 Comp Metabolic Qfb171 CALCIUM 9.7 mg/dL 10/13/2016 Comp Metabolic Zrd388 ALK PHOS 70 U/L 10/13/2016 Comp Metabolic Pua543 AST(SGOT) 17 U/L 10/13/2016 Comp Metabolic Uqw258 ALT(SGPT) 14 U/L 10/13/2016 Comp Metabolic Ebt422 BILI T 0.9 mg/dL 10/13/2016 Comp Metabolic Zqb692 ALBUMIN 4.4 g/dL 10/13/2016 Comp Metabolic Gon303 TPRO 7.1 g/dL 10/13/2016 Comp Metabolic Jca106 GLOB 2.7 g/dL 10/13/2016 Comp Metabolic Khb383 A/G Ratio 1.6 Ratio 10/13/2016 Comp Metabolic Zds207 Osmo 278 mOsmo 10/13/2016 Cbc With Differential [...] 29.7 pg 10/13/2016 Cbc With Differential Ord2 Ray% 7.7 % 10/13/2016 Cbc With Differential Ord2 [...] 1.43 K/ul 10/13/2016 Cbc With Differential Ord2 Ray ABS# 0.5 K/ul 10/13/2016 Cbc With Differential Ord2 Eos ABS# 0.1 K/ul 10/13/2016 Cbc With Differential Ord2 Baso ABS# 0.0 K/ul 10/13/2016 Free T4 Nvk428 FREE T4 1.31 ng/dL 08/17/2016 Tsh Ord6 hTSH II 0.64 uIU/mL 08/17/2016 Free T4 Ptp367 FREE T4 1.49 ng/dL 05/10/2016 Comp Metabolic Fhb698 NA 139 mEq/L 05/10/2016 Comp Metabolic Npn663 K 4.5 mEq/L 05/10/2016 Comp Metabolic Hwh370 CL 104 mEq/L 05/10/2016 Comp Metabolic Vcp007 CO2 24.0 mEq/L 05/10/2016 Comp Metabolic Klo490 ANION GAP 16 05/10/2016 Comp Metabolic Pkq378 GLUCOSE 87 mg/dL 05/10/2016 Comp Metabolic Syq680 Creat 0.9 mg/dL 05/10/2016 Comp Metabolic Bxq754 eGFR 71 ml/min/1.73m2 05/10/2016 Comp Metabolic Vdv376 BUN 12 mg/dL 05/10/2016 Comp Metabolic Tsv227 B/C Ratio 14.1 Ratio 05/10/2016 Comp Metabolic Yqi421 CALCIUM 9.6 mg/dL 05/10/2016 Comp Metabolic Fra566 ALK PHOS 89 U/L 05/10/2016 Comp Metabolic Zzq069 AST(SGOT) 17 U/L 05/10/2016 Comp Metabolic Lxw565 ALT(SGPT) 17 U/L 05/10/2016 Comp Metabolic Ecn620 BILI T 0.9 mg/dL 05/10/2016 Comp Metabolic Gps712 ALBUMIN 4.2 g/dL 05/10/2016 Comp Metabolic Wve631 TPRO 6.7 g/dL 05/10/2016 Comp Metabolic Ces616 GLOB 2.5 g/dL 05/10/2016 Comp Metabolic Ovo711 A/G Ratio 1.7 Ratio 05/10/2016 Comp Metabolic Amz083 Osmo 277 mOsmo 05/10/2016 Cbc With Differential [...] 23.8 % 05/10/2016 Cbc With Differential Ord2 Ray% 8.3 % 05/10/2016 Cbc With Differential Ord2 [...] 1.57 K/ul 05/10/2016 Cbc With Differential Ord2 Ray ABS# 0.6 K/ul 05/10/2016 Cbc With Differential Ord2 Eos ABS# 0.2 K/ul 05/10/2016 Cbc With Differential Ord2 Baso ABS# 0.0 K/ul 05/10/2016 Tsh Ord6 hTSH II 0.03 uIU/mL 05/10/2016 Free T4 Gjn341 FREE T4 1.67 ng/dL 02/18/2016 Tsh Ord6 hTSH II 0.06 uIU/mL 02/18/2016 Comp Metabolic Qtq795 NA 138 mEq/L 02/18/2016 Comp Metabolic Kap990 K 4.5 mEq/L 02/18/2016 Comp Metabolic Jlm818 CL 104 mEq/L 02/18/2016 Comp Metabolic Nyt859 CO2 26.0 mEq/L 02/18/2016 Comp Metabolic Vjs985 ANION GAP 13 02/18/2016 Comp Metabolic Cpd573 GLUCOSE 88 mg/dL 02/18/2016 Comp Metabolic Fqo478 Creat 0.9 mg/dL 02/18/2016 Comp Metabolic Itr538 eGFR 69 ml/min/1.73m2 02/18/2016 Comp Metabolic Smn148 BUN 14 mg/dL 02/18/2016 Comp Metabolic Dfn404 B/C Ratio 16.1 Ratio 02/18/2016 Comp Metabolic Ijz394 CALCIUM 9.4 mg/dL 02/18/2016 Comp Metabolic Nlq879 ALK PHOS 95 U/L 02/18/2016 Comp Metabolic Psx852 AST(SGOT) 19 U/L 02/18/2016 Comp Metabolic Jvk047 ALT(SGPT) 18 U/L 02/18/2016 Comp Metabolic Crw664 BILI T 0.7 mg/dL 02/18/2016 Comp Metabolic Iyz536 ALBUMIN 4.4 g/dL 02/18/2016 Comp Metabolic Sky290 TPRO 6.9 g/dL 02/18/2016 Comp Metabolic Wxe981 GLOB 2.5 g/dL 02/18/2016 Comp Metabolic Odn814 A/G Ratio 1.7 Ratio 02/18/2016 Comp Metabolic Odu374 Osmo 276 mOsmo 02/18/2016 Lipid Ord30 CHOL [...] 18.8 % 02/18/2016 Cbc With Differential Ord2 Ray% 10.5 % 02/18/2016 Cbc With Differential Ord2 [...] 1.08 K/ul 02/18/2016 Cbc With Differential Ord2 Ray ABS# 0.6 K/ul 02/18/2016 Cbc With Differential Ord2 Eos ABS# 0.0 K/ul 02/18/2016 Cbc With Differential Ord2 Baso ABS# 0.0 K/ul 02/18/2016 Comp Metabolic Nog859 NA 136 mEq/L 06/08/2015 Comp Metabolic Nyx395 K 3.9 mEq/L 06/08/2015 Comp Metabolic Jxr694 CL 103 mEq/L 06/08/2015 Comp Metabolic Awm790 CO2 25.0 mEq/L 06/08/2015 Comp Metabolic Rpl255 ANION GAP 12 06/08/2015 Comp Metabolic Fum398 GLUCOSE 91 mg/dL 06/08/2015 Comp Metabolic Lqu006 Creat 0.9 mg/dL 06/08/2015 Comp Metabolic Zje841 eGFR 68 ml/min/1.73m2 06/08/2015 Comp Metabolic Phf573 BUN 10 mg/dL 06/08/2015 Comp Metabolic Nrg933 B/C Ratio 11.4 Ratio 06/08/2015 Comp Metabolic Aze277 CALCIUM 9.4 mg/dL 06/08/2015 Comp Metabolic Jau975 ALK PHOS 88 U/L 06/08/2015 Comp Metabolic Rwa307 AST(SGOT) 20 U/L 06/08/2015 Comp Metabolic Kqh329 ALT(SGPT) 18 U/L 06/08/2015 Comp Metabolic Nlb575 BILI T 0.8 mg/dL 06/08/2015 Comp Metabolic Lpy368 ALBUMIN 4.4 g/dL 06/08/2015 Comp Metabolic Hqy365 TPRO 7.0 g/dL 06/08/2015 Comp Metabolic Huw238 GLOB 2.6 g/dL 06/08/2015 Comp Metabolic Jpz544 A/G Ratio 1.7 Ratio 06/08/2015 Comp Metabolic Ieo582 Osmo 271 mOsmo 06/08/2015 Tsh Ord6 hTSH [...] Ord2 RDW 14.4 % 06/08/2015 LYME EIA [id number] LYME EIA 0.24 04/25/2014 TULAREM AB [id number] TULAREM AB <1:20 04/24/2014 RMSF IFA [id number] IGG RMSF <1:16 04/24/2014 RMSF IFA 2654727 IGM RMSF <1:10 04/24/2014 E CHAFF AB [id number] IGG E CHFF <1:16 04/24/2014 E CHAFF AB [id number] IGM E CHFF <1:10 04/24/2014 ICT OCCULT [id number] ICT OCCULT NEG 10/11/2013 Review of Systems [...] FLU VACC PRSV FREE INC ANTIG CPT-4: 52699 06/07/2017 PPPS, SUBSEQ VISIT CPT- 4: G0439 11/17/2016 TRIAMCINOLONE ACET INJ NOS CPT-4: J3301 09/05/2016 PPPS, SUBSEQ VISIT CPT- 4: G0439 11/13/2015 PNEUMOCOCCAL VACC 13 STEPHANIE IM Formatting Model/CDA Sections, Assigned to/Lila Colon SNOMED CT: 58661899 CPT-4: 93655Eaxdqpg 11/13/2015 ADMIN PNEUMOCOCCAL VACCINE SNOMED CT: 86361603 CPT-4: G0009 11/13/2015 ROCEPHIN, PER 250 MG CPT- 4: J0696 07/23/2015 URINALYSIS NONAUTO W/O SCOPE CPT-4: 06923 10/10/2014 ROUTINE VENIPUNCTURE CPT- 4: 32338 04/23/2014 Pneumococcal Polysaccharide Vaccine, 23-Valent, Ad CPT-4: 78375 04/15/2014 ADMIN INFLUENZA VIRUS VAC CPT-4: G0008 04/15/2014 FLU VAC NO PRSV 4 STEPHANIE 3 YRS+ CPT-4: 51500 04/15/2014 ADMIN PNEUMOCOCCAL VACCINE SNOMED CT: 19515112 CPT-4: G0009 04/15/2014 THER/PROPH/DIAG INJ SC/IM CPT-4: 87266 02/11/2014 TRIAMCINOLONE ACET INJ NOS CPT-4: J3301 02/11/2014 TRIAMCINOLONE ACET INJ NOS CPT-4: J3301 01/21/2014 INITIAL PREVENTIVE EXAM CPT-4: G0402 09/30/2013 PRESCRIP TRANSMIT VIA ERX SY CPT-4: G8553 03/13/2013 Vital Signs Date Vital 08/29/2017 Blood Pressure 1: 146/80 Code: 8480-6 BMI: 29.5 Code: 35311-9 Heart Rate 1: 68 bpm Height: 5'5" SpO2: 98% Temperature: 36.6 (C) / 97.8 (F) Weight: 177 lbs 06/13/2017 Blood Pressure 1: 138/76 Code: 8480-6 BMI: 29.6 Code: 96453-3 Heart Rate 1: 63 bpm Height: 5'5" SpO2: 95% Weight: 178 lbs 02/16/2017 Blood Pressure 1: 128/80 Code: 8480-6 BMI: 29.9 Code: 81187-2 Heart Rate 1: 77 bpm Height: 5'5" SpO2: 96% Weight: 179 lbs 8 oz 02/06/2017 Blood Pressure 1: 140/80 Code: 8480-6 BMI: 29.8 Code: 06489-4 Heart Rate 1: 72 bpm Height: 5'5" SpO2: 97% Weight: 179 lbs 11/17/2016 Blood Pressure 1: 130/72 Code: 8480-6 BMI: 29.6 Code: 94598-5 Heart Rate 1: 62 bpm Height: 5'5" SpO2: 98% Waist Measure (cm): 91 cm Weight: 178 lbs 10/12/2016 Blood Pressure 1: 128/78 Code: 8480-6 BMI: 28.5 Code: 22177-6 Heart Rate 1: 62 bpm Height: 5'5" SpO2: 97% Weight: 171 lbs 09/05/2016 Blood Pressure 1: 122/70 Code: 8480-6 BMI: 28.0 Code: 83490-8 Heart Rate 1: 65 bpm Height: 5'5" SpO2: 94% Weight: 168 lbs 06/21/2016 Blood Pressure 1: 120/82 Code: 8480-6 BMI: 28.3 Code: 06081-4 Heart Rate 1: 65 bpm Height: 5'5" SpO2: 97% Weight: 170 lbs 05/24/2016 Blood Pressure 1: 136/80 Code: 8480-6 BMI: 28.1 Code: 32331-6 Heart Rate 1: 71 bpm Height: 5'5" SpO2: 96% Weight: 169 lbs 05/10/2016 Blood Pressure 1: 120/82 Code: 8480-6 BMI: 27.6 Code: 19714-3 Heart Rate 1: 86 bpm Height: 5'5" SpO2: 95% Weight: 166 lbs 05/03/2016 Blood Pressure 1: 124/78 Code: 8480-6 BMI: 28.1 Code: 11561-2 Heart Rate 1: 88 bpm Height: 5'5" SpO2: 97% Weight: 169 lbs 11/13/2015 Blood Pressure 1: 130/60 Code: 8480-6 BMI: 30.0 Code: 01802-3 Heart Rate 1: 7 bpm Height: 5'5" Waist Measure (cm): 97 cm Weight: 180 lbs 07/23/2015 Blood Pressure 1: 124/70 Code: 8480-6 BMI: 29.6 Code: 62386-8 Heart Rate 1: 74 bpm Height: 5'5" SpO2: 96% Temperature: 36.7 (C) / 98.1 (F) Weight: 178 lbs 07/06/2015 Blood Pressure 1: 138/78 Code: 8480-6 BMI: 29.6 Code: 94542-3 Heart Rate 1: 84 bpm Height: 5'5" SpO2: 96% Weight: 178 lbs 05/26/2015 Blood Pressure 1: 122/80 Code: 8480-6 BMI: 29.6 Code: 74604-3 Heart Rate 1: 84 bpm Height: 5'5" Weight: 178 lbs 02/16/2015 Blood Pressure 1: 124/82 Code: 8480-6 BMI: 29.0 Code: 49095-3 Heart Rate 1: 68 bpm Height: 5'5" Weight: 174 lbs 12/10/2014 Blood Pressure 1: 112/64 Code: 8480-6 BMI: 28.6 Code: 08716-1 Heart Rate 1: 80 bpm Height: 5'5" Weight: 172 lbs 10/16/2014 Blood Pressure 1: 128/84 Code: 8480-6 Heart Rate 1: 64 bpm Weight: 172 lbs 10/09/2014 Blood Pressure 1: 136/90 Code: 8480-6 BMI: 28.6 Code: 06720-5 Heart Rate 1: 76 bpm Height: 5'5" Weight: 172 lbs 08/26/2014 Blood Pressure 1: 118/72 Code: 8480-6 BMI: 29.0 Code: 96260-4 Heart Rate 1: 76 bpm Height: 5'5" Weight: 174 lbs 05/16/2014 Blood Pressure 1: 110/72 Code: 8480-6 BMI: 29.0 Code: 78359-6 Height: 5'5" Weight: 174 lbs 04/23/2014 Blood Pressure 1: 124/70 Code: 8480-6 BMI: 29.0 Code: 63773-5 Heart Rate 1: 72 bpm Height: 5'5" Weight: 174 lbs 04/15/2014 Temperature: 36.5 (C) / 97.7 (F) 01/21/2014 Blood Pressure 1: 98/62 Code: 8480-6 BMI: 29.0 Code: 61847- 5 Heart Rate 1: 84 bpm Height: 5'5" Temperature: 37.1 (C) / 98.7 (F) Weight: 174 lbs 12/05/2013 Blood Pressure 1: 138/88 Code: 8480-6 BMI: 29.0 Code: 80446-2 Heart Rate 1: 60 bpm Height: 5'5" Weight: 174 lbs 11/05/2013 Blood Pressure 1: 118/80 Code: 8480-6 BMI: 28.8 Code: 37327-8 Heart Rate 1: 76 bpm Height: 5'5" Weight: 173 lbs 10/15/2013 Blood Pressure 1: 120/78 Code: 8480-6 BMI: 29.1 Code: 07930-7 Heart Rate 1: 88 bpm Height: 5'5" Weight: 175 lbs 09/30/2013 Blood Pressure 1: 112/84 Code: 8480-6 BMI: 29.1 Code: 38497-5 Heart Rate 1: 68 bpm Height: 5'5" Weight: 175 lbs 03/13/2013 Blood Pressure 1: 112/84 Code: 8480-6 BMI: 28.6 Code: 21363-2 Heart Rate 1: 64 bpm Height: 5'5" Weight: 173 lbs 10/04/2012 Blood Pressure 1: 120/72 Code: 8480-6 BMI: 28.0 Code: 72226-9 Heart Rate 1: 64 bpm Height: 5'5" Weight: 169 lbs 08/22/2011 Blood Pressure 1: 134/84 Code: 8480-6 BMI: 27.5 Code: 78307-9 Heart Rate 1: 68 bpm Height: 5'5" Respiratory Rate: 16 bpm Weight: 166 lbs 8 oz 06/17/2011 Blood Pressure 1: 120/76 Code: 8480-6 BMI: 27.0 Code: 74625-2 Heart Rate 1: 58 bpm Height: 5'5" [...] allergic rhinitis[ICD10: J30.89] Gina Alvarado MD, [facility] CPT- 4: 89581 08/29/2017 ([id number]) 07245 EST. PATIENT, LEVEL IV Diagnosis: Postprocedural hypothyroidism[ICD10: E89.0] Diagnosis: Major depressive disorder, recurrent, moderate[ICD10: F33.1] Diagnosis: Generalized anxiety disorder[ICD10: F41.1] Elina Alvarado MD, [facility] CPT-4: 52410 06/13/2017 [id number]) 63744 EST. PATIENT, LEVEL IV Diagnosis: Pelvic and perineal pain[ICD10: R10.2] Diagnosis: Acute vaginitis[ICD10: N76.0] [facility] CPT-4: 95489 02/16/2017 [id number]) 35988 EST. PATIENT, LEVEL III Diagnosis: Postprocedural hypothyroidism[ICD10: E89.0] Diagnosis: Major depressive disorder, recurrent, moderate[ICD10: F33.1] [facility] CPT-4: 73506 02/06/2017 [id number]) 78198 EST. PATIENT, LEVEL III Diagnosis: Generalized anxiety disorder[ICD10: F41.1] Elina Alvarado MD, [facility] CPT-4: 52311 10/12/2016 ([id number]) 07593 EST. PATIENT, LEVEL III Diagnosis: Cough[ICD10: R05] Diagnosis: Acute upper respiratory infection, unspecified[ICD10: J06.9] Suma Alvarado MD, [facility] CPT-4: 82294 09/05/2016 ([id number]) 15180 EST. PATIENT, LEVEL III Diagnosis: Generalized anxiety disorder[ICD10: F41.1] Diagnosis: Major depressive disorder, recurrent, moderate[ICD10: F33.1] Diagnosis: Postprocedural hypothyroidism[ICD10: E89.0] Elina Alvarado MD, [facility] CPT-4: 45816 06/21/2016 ([id number]) 58420 EST. PATIENT, LEVEL III Diagnosis: Major depressive disorder, recurrent, moderate[ICD10: F33.1] Elina Alvarado MD, [facility] CPT-4: 89570 05/24/2016 ([id number]) 80952 EST. PATIENT, LEVEL III Diagnosis: Major depressive disorder, recurrent, moderate[ICD10: F33.1] Elina Alvarado MD, [facility] CPT-4: 42697 05/10/2016 ([id number]) 18061 EST. PATIENT, LEVEL III Diagnosis: Generalized anxiety disorder[ICD10: F41.1] Diagnosis: Major depressive disorder, recurrent, moderate[ICD10: F33.1] Suma Alvarado MD, [facility] CPT-4: 21811 05/03/2016 ([id number]) 99733 EST. PATIENT, LEVEL III Diagnosis: Cough[ICD10: R05] Diagnosis: Acute upper respiratory infection, unspecified[ICD10: J06.9] Suma Alvarado MD, [facility] CPT-4: 87619 07/23/2015 ([id number]) 59041 EST. PATIENT, LEVEL III Diagnosis: Hypothyroidism, unspecified[ICD10: E03.9] Diagnosis: Generalized anxiety disorder[ICD10: F41.1] Diagnosis: Other depressive episodes[ICD10: F32.8] Elina Alvarado MD, [facility] CPT-4: 99196 07/06/2015 ([id number]) 12067 EST. PATIENT, LEVEL IV Diagnosis: Generalized anxiety disorder[ICD10: F41.1] Diagnosis: Major depressive disorder, recurrent, unspecified[ICD10: F33.9] Elina Alvarado MD, [facility] CPT-4: 62612 05/26/2015 ([id number]) 56080 EST. PATIENT, LEVEL II Diagnosis: 2Nd degree burn of multiple fingers of right hand not including thumb[ICD9: 944.23] Suma Alvarado MD, [facility] CPT-4: 80481 02/16/2015 ([id number]) 38750 EST. PATIENT, LEVEL IV Diagnosis: Hammertoe[ICD9: 735.4] Diagnosis: Foot pain[ICD9: 729.5] Diagnosis: HYPOTHYROIDISM[ICD9: 244.9] Elina Alvarado MD, [facility] CPT-4: 66543 12/10/2014 ([id number]) 59627 EST. PATIENT, LEVEL III Diagnosis: Urinary incontinence[ICD9: 788.30] Diagnosis: Pelvic pain in female[ICD9: 625.9] Elina Alvarado MD, [facility] CPT- 4: 06953 10/16/2014 ([id number]) 58847 EST. PATIENT, LEVEL III Diagnosis: Urinary incontinence[ICD9: 788.30] Diagnosis: Pelvic pain in female[ICD9: 625.9] Suma Alvarado MD [facility] CPT- 4: 19219 10/09/2014 ([id number]) 16521 EST. PATIENT, LEVEL III Diagnosis: HYPOTHYROIDISM[ICD9: 244.9] Elina Alvarado MD [facility] CPT-4: 80662 08/26/2014 ([id number]) 58800 EST. PATIENT, LEVEL III Diagnosis: Neck pain[ICD9: 723.1] Diagnosis: Muscle tension headache[ICD9: 307.81] Suma Alvarado MD [facility] CPT-4: 98550 05/16/2014 ([id number]) 79609 EST. PATIENT, LEVEL IV Diagnosis: Arthropod bite[ICD9: 919.4] Diagnosis: Poison diana dermatitis[ICD9: 692.6] Diagnosis: Arthralgia[ICD9: 719.40] Diagnosis: Myalgia[ICD9: 729.1] Elina Alvarado MD, [facility] CPT-4: 83599 04/23/2014 ([id number]) 36010 EST. PATIENT, LEVEL III Diagnosis: ACUTE URI[ICD9: 465.9] Diagnosis: COUGH[ICD9: 786.2] Suma Alvarado MD, [facility] CPT-4: 78365 01/21/2014 ([id number]) 56597 EST. PATIENT, LEVEL III Diagnosis: HYPOTHYROIDISM[ICD9: 244.9] Diagnosis: GENERALIZED ANXIETY DISEASE[ICD9: 300.02] Elina Alvarado MD, [facility] CPT-4: 04529 12/05/2013 ([id number]) 08386 EST. PATIENT, LEVEL III Diagnosis: GENERALIZED ANXIETY DISEASE[ICD9: 300.02] Diagnosis: DEPRESSIVE DISORDER NEC[ICD9: 311] Elina Alvarado MD, [facility] CPT- 4: 96380 11/05/2013 ([id number]) 36756 EST. PATIENT, LEVEL III Diagnosis: HYPOTHYROIDISM[ICD9: 244.9] Elina Alvarado MD, [facility] CPT-4: 88528 10/15/2013 ([id number]) Miscellaneous no charge Diagnosis: Colon cancer screening[ICD9: V76.51] Elina Alvarado MD, [facility] CPT- 4: 55079 10/10/2013 ([id number]) 35953 EST. PATIENT, LEVEL IV Diagnosis: HYPOTHYROIDISM[ICD9: 244.9] Diagnosis: DEPRESSIVE DISORDER NEC[ICD9: 311] Diagnosis: GENERALIZED ANXIETY DISEASE[ICD9: 300.02] Diagnosis: HYPERLIPIDEMIA[ICD9: 272.4] Elina Alvarado MD, [facility] CPT-4: 70134 03/13/2013 ([id number]) 93946 EST. PATIENT, LEVEL IV Diagnosis: HYPERLIPIDEMIA[ICD9: 272.4] Diagnosis: HYPOTHYROIDISM[ICD9: 244.9] Diagnosis: GENERALIZED ANXIETY DISEASE[ICD9: 300.02] Diagnosis: DEPRESSIVE DISORDER NEC[ICD9: 311] Elina Alvarado MD, [facility] CPT- 4: 88599 10/04/2012 ([id number]) 71618 EST. PATIENT, LEVEL III Diagnosis: VICTOR HUGO (generalized anxiety disorder)[ICD9: 300.02] Diagnosis: Chronic depression[ICD9: 311] [facility] CPT-4: 60650 08/22/2011 84253 EST. PATIENT, LEVEL IV Diagnosis: CHEST PAIN NEC[ICD9: 786.59] Diagnosis: HYPERLIPIDEMIA[ICD9: 272.4] Diagnosis: POSTSURGICAL HYPOTHYROIDISM[ICD9: 244.0] [facility] CPT-4: 81574 06/17/2011 Plan of Care Planned Activity Notes [...] with counseling. 06/13/2017 Appointment: Elina Alvarado WPtel: [address] [place], [place] [phone] (15 min) Moderate 06/13/2017 Patient Education: Patient Medication Summary Completed 06/13/2017 Appointment: Injection 06/07/2017 Patient Education: Patient Medication Summary Completed 06/07/2017 Visit Plan: Pelvic pain-UA negative-pap done today in the office- will start patient on flagyl for bacterial vaginosis-instructed patient to call if symptoms do not resolve or if any worse. Patient verbalized understanding of plan. 02/16/2017 Appointment: Suma Choi WPtel: [phone] [phone] (30 min) Complex 02/16/2017 Patient Education: Patient [...] medications. 02/06/2017 Appointment: Elina Alvarado WPtel: [phone] [facility] (15 min) Moderate 02/06/2017 Patient Education: Patient [...] surrogate. 11/17/2016 Appointment: Gina Kern WPtel: [phone] [facility] [facility] - Annual Wellness Visit 11/17/2016 Patient [...] current medications. 10/12/2016 Appointment: Elina Alvarado WPtel: [address] [place], [place] [phone] (15 min) Moderate 10/12/2016 Patient Education: Patient [...] : J06.9 09/05/2016 Appointment: Suma Choi WPtel: [address] [place], [place] [phone] [place] (10 min) Simple 09/05/2016 Patient Education: [...] with lexapro 06/21/2016 Appointment: Elina Alvarado WPtel: [address] [place], [place] [phone] (15 min) Moderate 06/21/2016 Patient Education: Patient Medication Summary Completed 06/21/2016 Visit Plan: Depression - improved with lexapro - continue with current treatment and counseling. 05/24/2016 [facility]ment: [phone] [facility] ([facility] min) Moderate 05/24/2016 Patient Education: Patient Medication Summary Completed 05/24/2016 Visit Plan: Depression - improved on the Lexapro - stop ativan - start on xanax 05/10/2016 Appointment: Elina Alvarado WPtel: [facility] (15 min) Moderate 05/10/2016 Patient Education: Patient [...] Summary Completed 05/03/2016 Appointment: Suma Choi WPtel: [phone] [place] (15 min) Moderate 02/26/2016 Visit [...] and to maintain independece in the home. Uwpjqycxay-rlybkwhbsbhz-cxyfya to wellbutrin Pneumonia 13 administered today in [...] and to maintain independece in the home. Nsyiijqiay-whsgooixzuql-krrqhf to wellbutrin Pneumonia 13 administered today in the office 11/13/2015 Appointment: [facility] - Annual Wellness Visit 11/13/2015 Patient Education: Patient Medication Summary Completed 11/13/2015 Patient Education: Obesity Completed 11/13/2015 Care Plan: SCREENINGMAMMOGRAPHYDIGITAL [facility] : 75465-1 Ordered 11/13/2015 Appointment: Lab Draw 08/10/2015 Visit [...] current medications. 07/06/2015 Appointment: Elina Alvarado WPtel: [address] [place], [place] [phone] (30 min) Complex 07/06/2015 Patient Education: Patient [...] discharge. 12/10/2014 Appointment: Elina Alvarado WPtel: [address] [place], [place] [phone] Surgical Clearance 12/10/2014 Patient Education: Patient Medication Summary Completed 12/10/2014 Visit Plan: Urinary incontinence and Pelvic discomfort - recommended pt to have evaluation by Dr. Brandt - pt agreeable to referral. Pt is to call if abdominal pain does not improve. 10/16/2014 Appointment: Elina Alvarado WPtel: [facility] Follow up 10/16/2014 Patient Education: Patient Medication Summary Completed 10/16/2014 Care Plan: Referral Order SNOMED-CT : [id number] Ordered 10/16/2014 Patient Education: Patient Medication Summary Completed 10/10/2014 Visit Plan: Pelvic pain-history of mesh implant-recommend CT abd/pelvis to evaluate for any abnormality-refer to Dr Woods if pain does not improve Urinary incontinence-check UA with C&S if indicated 10/09/2014 Patient Education: Patient Medication Summary Completed 10/09/2014 Care Plan: CT ABD & PELV 1/> [facility] : 89454-3 Ordered 10/09/2014 Visit Plan: Hypothyroidism - pt with chronic hypothyroidism, continue with current medication, will monitor pt to signs or symptoms of lack of adequate supplementation. Pt is to continue with current dose of medication unless directed otherwise. Check labs at regular intervals wither q 3 months or q 6 months based on previous levels of control. 08/26/2014 Appointment: Elina Alvarado WPtel: [facility]9 [facility] Follow up 08/26/2014 Patient Education: Patient Medication [...] screening. 04/23/2014 Appointment: Elina Alvarado WPtel: [address] [place], [place] [phone] Sick 04/23/2014 Patient Education: Patient Medication Summary Completed 04/23/2014 Care Plan: Referral Order SNOMED-CT : [id number] Ordered 04/23/2014 Appointment: Nurse Visit 04/15/2014 Patient Education: Patient Medication Summary Completed 04/15/2014 Appointment: Elina Alvarado WPtel: [address] [place], [place] [phone] [place] Injection 02/11/2014 Patient Education: Patient Medication [...] current treatment. 12/05/2013 Appointment: Elina Alvarado WPtel: [facility] Follow up 12/05/2013 Patient Education: Patient Medication [...] medications. 11/05/2013 Appointment: [facility] [phone] [facility] [facility] 11/05/2013 Patient Education: Patient [...] control. 10/15/2013 Appointment: [facility] [phone] [facility] [facility] 10/15/2013 Patient Education: Patient [...] surrogate. 09/30/2013 Appointment: Elina Alvarado WPtel: [phone] [facility] [facility] - Initial Preventive Physical Exam 09/30/2013 Patient Education: Patient Medication Summary Completed 09/30/2013 Appointment: [facility] [phone] [facility] [facility] - Initial Preventive Physical Exam 09/11/2013 [...] use. 03/13/2013 Appointment: [facility]ado [facility] [phone] [facility] Follow [facility] 03/13/2013 Patient Education: Patient [...] current medications. 10/04/2012 Appointment: [facility] [phone] [facility] Follow [facility] 10/04/2012 Patient Education: Patient [...] attacks. 08/22/2011 Appointment: [facility] [phone] [facility] Other 08/22/2011 Patient Education: Patient Medication [...] THYROID ULTRASOUND 06/17/2011 Appointment: [facility]ado [facility] [phone] [facility] Other 06/17/2011 Patient Education: Patient Medication [...] and to maintain independece in the home. Fliqhxnche-xlplwnhyncak-uzsgot to wellbutrin Pneumonia 13 administered today in [...] and to maintain independece in the home. Uvgpnunwyg-mmqlrnsxpnwz-fdnkke to wellbutrin Pneumonia 13 administered today in [...]
--- OUTSIDE RECORDS SUMMARY | 2018-12-27 10:21 | XMS REPORT | Continuity of Care Document ---
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 [id number] 06/20/2011 07:16:00 Document Registration [id number] 06/08/2011 09:18:00 Document Registration [id number] 05/26/2011 09:08:00 Document Registration [id number] 04/21/2011 09:31:00 Document Registration [id number] 03/15/2010 05:39:00 Document Registration [id number] 03/10/2010 11:32:00 Document Registration [id number] 06/12/2017 03:03:21 06/12/2017 23:59:59 [facility] Outpatient
--- NOTE | 2018-12-27 10:25 | Diagnostic Imaging Report ---
PROCEDURE: CT head, face, and cervical spine without contrast. TECHNIQUE: Multiple contiguous axial images were obtained through the head, neck, and facial bones without the use of intravenous contrast. Sagittal and coronal reformations through the cervical spine and facial bones were also performed. Auto Exposure Controls were utilized during the CT exam to meet ALARA standards for radiation dose reduction. INDICATION: Traumatic head/neck injury sustained during fall. Patient was walking dog and fell, hitting forehead and right side of face on the ground. Patient reports headache across the forehead and posterior central neck pain. COMPARISON: Head CT performed on 12/26/2007. FINDINGS - CT BRAIN: BRAIN: No parenchymal hemorrhage, midline shift or mass effect. Haynes-white matter differentiation is well preserved. No acute infarct. Ventricles, sulci and basilar cisterns are normal. No significant white matter changes. EXTRA-AXIAL SPACES: No subdural or epidural collections. CALVARIUM AND SOFT TISSUES: The calvarium is intact. Minimal inflammatory change is noted in the right frontal scalp soft tissues. No focal hematoma/collection is demonstrated. FINDINGS - CT FACIAL BONES: ORBITAL AND PERIORBITAL SOFT TISSUES: The orbits and globes are intact. The extraocular muscles and retrobulbar fat are normal. FACIAL SOFT TISSUES: There is mild edema in the soft tissues adjacent to the right aspect of the maxilla, with scattered foci of gas and superficial soft tissue irregularity just to the right of the alveolar process. No focal fluid collection or hematoma is demonstrated. ORBITAL NICOLE: Normal. PARANASAL SINUSES: There is minimal mucosal thickening in ethmoid air cells. Visualized paranasal sinuses and mastoid air cells are otherwise clear. NASAL BONES: There is slight deformity of left nasal bone, possibly reflecting an old fracture. No displaced or definite acute nasal bone fracture is demonstrated. ZYGOMATIC ARCHES: Normal. PTERYGOID PLATES: Normal. MAXILLA AND ALVEOLUS: Normal. MANDIBLE: Normal. No fracture or dislocation. FINDINGS - CT CERVICAL SPINE: SPINE: No fracture. No acute osseous abnormalities. There is straightening of cervical lordosis, likely positional in nature. No subluxation. There is mild multilevel degenerative loss of disc height with endplate osteophytes. No locked or perched facet. SOFT TISSUES AND LUNG APICES: Soft tissues unremarkable. Clear lung apices. IMPRESSION: No acute intracranial pathology. Mild edema in the right frontal scalp soft tissues, without evidence of underlying skull fracture. Edema and tiny foci of gas in the superficial soft tissues in the right premaxillary soft tissues, with skin irregularity likely representing laceration. No acute facial fracture is demonstrated. Multilevel degenerative change of the cervical spine, without evidence of acute fracture or subluxation. Dictated by: Dictated on workstation # [id number]
[2018-12-27] MEDS ORDERED: LIDOCAINE 1% INJ 20 ML 20 ML VIAL ONE (10:37)
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
[2018-12-27] MEDS ORDERED: HYDROcodone/APAP 5 MG/325 MG (LORTAB) TAB PO ONE (11:00)
[2018-12-27] MEDS ORDERED: HYDR-4226 PO (11:02)
[2018-12-27] MEDS ORDERED: CEPH-507 PO (11:02)
[2018-12-27 11:21] VITALS: BP 139/90
== END 2018-12-27 11:21 | disposition home or self-care (01) ==
LOC: EDUNIT# 08:46 → ER 08:48
DX: S01.81XA Laceration without foreign body of other part of head, initial encounter (principal); E03.9 Hypothyroidism, unspecified; F41.9 Anxiety disorder, unspecified; F32.9 Major depressive disorder, single episode, unspecified; R40.2142 Coma scale, eyes open, spontaneous, at arrival to emergency department; R40.2252 Coma scale, best verbal response, oriented, at arrival to emergency department; R40.2362 Coma scale, best motor response, obeys commands, at arrival to emergency department; F17.210 Nicotine dependence, cigarettes, uncomplicated; Z90.710 Acquired absence of both cervix and uterus; Z90.89 Acquired absence of other organs; Z86.018 Personal history of other benign neoplasm; W01.198A Fall on same level from slipping, tripping and stumbling with subsequent striking against other object, initial encounter
CPT/HCPCS: 70450; 70486; 72125; 90471; 90715

== ENCOUNTER 2019-01-01 13:36 | Emergency (ER) | payer MEDICARE, BC ==
[~2019-01-01] VITALS: Ht 167.6 cm; Wt 77.6 kg
[~2019-01-01 13:36] MED LIST changes: +CEPH-507 PO; +HYDR-4226 PO
[2019-01-01 13:48] VITALS: BP 112/68
--- OUTSIDE RECORDS SUMMARY | 2019-01-01 15:33 | XMS REPORT | CCD ---
Author Author [facility] Organization [facility] Address [address] [place] [address] Phone Care Team Providers Care Office Administration Instructor Name Role Phone PP Unavailable CCM Unavailable Summary Purpose Interface Exchange Insurance Providers Payer name Policy type / Coverage type Covered constitution party ID Effective Begin Date Effective End Date WPS Medicare Part B [id number] 2018 Unknown [facility] [id number] Unknown Family history Grandmother Diagnosis Age At [...] Description Effective Dates Tobacco history SNOMED CT: 2413367 Former smoker quit 2 years ago, social smoker, 1 pack per month 200709/30/2013 Employment Unknown 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 Marital status Unknown 06/17/[address]: 837125 Currently drinks alcohol 2 beers/week 06/17/2011 Has [...] Codes Condition Status Onset Date Resolved Date Laceration without foreign body of other part of head, initial encounter ICD-9: 873.40 ICD-10: S01.81XA Active 12/28/2018 Unknown Insect bite (nonvenomous) of right upper arm, [...] 02/16/2017 Unknown Pelvic and perineal pain ICD-9: [id number] ICD-10: R10.2 Active 02/16/2017 Unknown Hypothyroidism, unspecified [...] Problems Condition Codes Effective Dates Condition Status Laceration without foreign body of other part of head, initial encounter ICD-9: 873.40 ICD-10: S01.81XA 12/28/2018 Active Insect bite (nonvenomous) of right upper arm, [...] 02/16/2017 Active Pelvic and perineal pain ICD-9: [id number] ICD-10: R10.2 02/16/2017 Active Hypothyroidism, unspecified ICD-9: [...] Start Date Stop Date Status Fill Instructions mupirocin 2 % topical ointment RxNorm: 820146 1 Application TOP BID 12/28/2018 01/03/2019 Active doxycycline hyclate 100 mg tablet RxNorm: 3093618 1 Tablet(s) PO BID 12/04/2018 12/13/2018 Inactive Zithromax Z-Que 250 mg tablet RxNorm: 088981 1 Tablet(s) PO UD 10/08/2018 10/12/2018 Inactive Kenalog 40 mg/mL suspension for injection RxNorm: 4852092 Milliliter(s) Inj 10/08/2018 10/08/2018 Inactive Xanax 0.5 mg tablet RxNorm: 494641 1 Tablet(s) PO QID as needed anxiety 09/24/2018 11/21/2018 Inactive Kenalog 40 mg/mL suspension for injection RxNorm: 5470306 1 Milliliter(s) Inj 09/11/2018 09/11/2018 Inactive Augmentin 875 mg-125 mg tablet RxNorm: 919412 1 Tablet(s) PO BID 09/11/2018 09/17/2018 Inactive naproxen 500 mg tablet RxNorm: 003189 1 Tablet(s) PO BID 07/12/2018 07/16/2018 Inactive Synthroid 112 mcg tablet RxNorm: 146885 TAKE ONE TABLET BY MOUTH DAILY 07/02/2018 12/28/2018 Inactive Lipitor 10 mg tablet RxNorm: 144780 TAKE ONE TABLET BY MOUTH EVERY DAY 06/06/2018 05/31/2019 Active Lexapro 20 mg tablet RxNorm: 296309 TAKE ONE TABLET BY MOUTH DAILY 05/08/2018 12/03/2018 Inactive Synthroid 100 mcg tablet RxNorm: 498690 TAKE ONE TABLET BY MOUTH EVERY OTHER DAY 04/10/2018 10/06/2018 Inactive Synthroid 100 mcg tablet RxNorm: 670913 1 Tablet(s) PO every other day 12/11/2017 04/09/2018 Inactive QOD -alternate with 112mcg DISPENSE BRAND NAME Synthroid 112 mcg tablet RxNorm: 747444 1 Tablet(s) every other day 11/28/2017 03/27/2018 Inactive QOD alternate with 100mcg Synthroid 100 mcg tablet RxNorm: 057643 1 Tablet(s) PO every other day 11/28/2017 12/10/2017 Inactive QOD -alternate with 112mcg DISP[employer] BRAND NAME Synthroid 100 mcg tablet RxNorm: 889292 1 Tablet(s) PO every other day 11/28/2017 11/27/2017 Inactive QOD -alternate with 112mcg Xanax 0.5 mg tablet RxNorm: 452086 1 Tablet(s) PO QID as needed anxiety 11/14/2017 01/11/2018 Inactive Lexapro 20 mg tablet RxNorm: 164471 TAKE ONE TABLET BY MOUTH DAILY 11/13/2017 05/07/2018 Inactive Xanax 0.5 mg tablet RxNorm: 301024 1 Tablet(s) PO QID as needed anxiety 09/11/2017 11/08/2017 Inactive Tamiflu 75 mg capsule RxNorm: 762190 1 Capsule(s) PO BID 08/29/2017 09/02/2017 Inactive Synthroid 112 mcg tablet RxNorm: 145789 1 Tablet(s) daily 08/14/2017 11/27/2017 Inactive fyi - medication changed, refill x 6 - #30 pills Synthroid 112 mcg tablet RxNorm: 372759 1 Tablet(s) daily 06/13/2017 08/13/2017 Inactive fyi - medication changed, refill x 6 - #30 pills Lexapro 20 mg tablet RxNorm: 902278 TAKE ONE TABLET BY MOUTH DAILY 06/09/2017 11/05/2017 Inactive Synthroid 112 mcg tablet RxNorm: 046344 TAKE 1 TABLET BY MOUTH DAILY EXCEPT TAKE 1/2 TABLET ON MONDAY, MONDAY, AND Monday05/22/2017 06/12/2017 Inactive Lipitor 10 mg tablet RxNorm: 113198 TAKE ONE TABLET BY MOUTH EVERY DAY 03/08/2017 05/31/2018 Inactive Flagyl 500 mg tablet RxNorm: 410185 1 Tablet(s) PO TID 02/16/2017 02/22/2017 Inactive Xanax 0.5 mg tablet RxNorm: 923664 1 Tablet(s) PO QID as needed anxiety 12/23/2016 03/21/2017 Inactive Synthroid 112 mcg tablet RxNorm: 487255 TAKE 1 TABLET BY MOUTH DAILY EXCEPT FOR TAKE 1/2 TABLET ON MONDAY, MONDAY, AND Monday12/23/2016 04/13/2017 Inactive Lexapro 20 mg tablet RxNorm: 320067 TAKE ONE TABLET BY MOUTH DAILY 11/29/2016 05/27/2017 Inactive Zithromax Z-Que 250 mg tablet RxNorm: 999230 1 Tablet(s) PO UD 09/05/2016 09/09/2016 Inactive zpack Kenalog 40 mg/mL suspension for injection RxNorm: 1292982 1 Milliliter(s) Inj 09/05/2016 09/05/2016 Inactive Lipitor 10 mg tablet RxNorm: 522852 TAKE ONE TABLET BY MOUTH EVERY DAY 08/30/2016 02/25/2017 Inactive Ativan 1 mg tablet RxNorm: 798459 1 Tablet(s) PO Q6 PRN as needed TAKE ONE TABLET BY MOUTH THREE TIMES A DAY OR EVERY 6 HOURS NEEDED FOR ANXIETY 08/30/2016 12/22/2016 Inactive Synthroid 112 mcg tablet RxNorm: 955208 1 Tablet(s) PO daily except one-half tab on Mon/Mon/Sat 08/23/2016 12/12/2016 Inactive will refill when needed Lexapro 20 mg tablet RxNorm: 594789 TAKE ONE TABLET BY MOUTH DAILY 08/02/2016 11/28/2016 Inactive Synthroid 112 mcg tablet RxNorm: 072219 1 Tablet(s) PO daily except 1/2 tab mon and sat 05/25/2016 08/22/2016 Inactive will refill when needed Xanax 0.5 mg tablet RxNorm: 488669 1 Tablet(s) PO QID as needed anxiety 05/10/2016 08/29/2016 Inactive Lexapro 20 mg tablet RxNorm: 635522 1 Tablet(s) PO daily 05/03/2016 07/31/2016 Inactive 1/2 tab x 1 week then increase to a full pill daily buspirone 5 mg tablet RxNorm: 192095 TAKE ONE-HALF TABLET BY MOUTH TWICE A DAY 03/15/2016 05/02/2016 Inactive Synthroid 112 mcg tablet RxNorm: 778734 1 Tablet(s) PO daily 02/25/2016 05/24/2016 Inactive Ativan 1 mg tablet RxNorm: 871499 Tablet(s) TAKE ONE TABLET BY MOUTH THREE TIMES A DAY OR EVERY 6 HOURS NEEDED FOR ANXIETY 02/04/2016 05/08/2016 Inactive Synthroid 125 mcg tablet RxNorm: 708194 TAKE ONE TABLET BY MOUTH TWICE WEEKLY 01/11/2016 02/24/2016 Inactive Synthroid 112 mcg tablet RxNorm: 194893 TAKE ONE TABLET BY MOUTH FIVE DAYS A WEEK 01/11/2016 02/24/2016 Inactive Wellbutrin 75 mg tablet RxNorm: 180135 TAKE ONE TABLET BY MOUTH TWICE A DAY 01/11/2016 05/02/2016 Inactive Ativan 1 mg tablet RxNorm: 384588 TAKE ONE TABLET BY MOUTH THREE TIMES A DAY OR EVERY 6 HOURS NEEDED 12/03/2015 12/27/2015 Inactive Lipitor 10 mg tablet RxNorm: 287030 TAKE ONE TABLET BY MOUTH EVERY DAY 12/03/2015 08/28/2016 Inactive Ativan 1 mg tablet RxNorm: 087960 Tablet(s) TAKE ONE TABLET BY MOUTH THREE TIMES A DAY AND TAKE ONE TABLET BY MOUTH EVERY 6 HOURS NEEDED FOR ANXIETY 12/03/2015 12/02/2015 Inactive (Response to an electronic controlled substance refill request - RxReferenceNumber: [id number]) Wellbutrin 75 mg tablet RxNorm: 994071 1 Tablet(s) PO BID 11/13/2015 01/10/2016 Inactive Ativan 1 mg tablet RxNorm: 066724 Tablet(s) TAKE ONE TABLET BY MOUTH THREE TIMES A DAY AND TAKE ONE TABLET BY MOUTH EVERY 6 HOURS NEEDED FOR ANXIETY 09/23/2015 10/30/2015 Inactive (Response to an electronic controlled substance refill request - RxReferenceNumber: [id number]) buspirone 5 mg tablet RxNorm: 128353 TAKE ONE-HALF TABLET BY MOUTH TWICE A DAY 08/18/2015 03/01/2016 Inactive ceftriaxone 500 mg solution for injection RxNorm: 8915536 Inj 07/23/2015 07/23/2015 Inactive Zithromax Z-Que 250 mg tablet RxNorm: 446894 1 Tablet(s) PO UD 07/23/2015 07/27/2015 Inactive ZPACK buspirone 5 mg tablet RxNorm: 604503 1 Tablet(s) PO daily 07/06/2015 11/27/2018 Inactive buspirone 5 mg tablet RxNorm: 923613 1/2 Tablet(s) PO BID 05/26/2015 07/05/2015 Inactive Lipitor 10 mg tablet RxNorm: 087871 TAKE ONE TABLET BY MOUTH EVERY DAY 04/23/2015 10/19/2015 Inactive Ativan 1 mg tablet RxNorm: 090374 Tablet(s) TAKE ONE TABLET BY MOUTH THREE TIMES A DAY AND TAKE ONE TABLET BY MOUTH EVERY 6 HOURS NEEDED FOR ANXIETY 02/23/2015 04/01/2015 Inactive (Response to an electronic controlled substance refill request - RxReferenceNumber: [id number]) Synthroid 125 mcg tablet RxNorm: 414914 1 Tablet(s) PO UD twice weekly 12/10/2014 06/07/2015 Inactive Synthroid 112 mcg tablet RxNorm: 588788 1 Tablet(s) PO UD TAKE ONE TABLET BY MOUTH 5 days a week 12/10/2014 12/04/2015 Inactive Lexapro 20 mg tablet RxNorm: 691372 1 Tablet(s) PO daily 11/26/2014 11/12/2015 Inactive Lipitor 10 mg tablet RxNorm: 823290 TAKE ONE TABLET BY MOUTH EVERY DAY 10/21/2014 04/18/2015 Inactive amoxicillin 500 mg capsule RxNorm: 758566 1 Capsule(s) PO TID 10/15/2014 10/21/2014 Inactive take probiotic BID x 7 days during abt period amoxicillin 500 mg capsule RxNorm: 428668 1 Capsule(s) PO TID 10/15/2014 10/14/2014 Inactive take probiotic BID x 7 days during abt period Ativan 1 mg tablet RxNorm: 742402 TAKE ONE TABLET BY MOUTH THREE TIMES A DAY AND TAKE ONE TABLET BY MOUTH EVERY 6 HOURS NEEDED FOR ANXIETY 08/21/2014 09/28/2014 Inactive (Response to an electronic controlled substance refill request [id number] Ativan 1 mg tablet RxNorm: 906294 1 Tablet(s) PO tid and Q6 PRN as needed 08/18/2014 08/21/2014 Inactive doxycycline hyclate 100 mg tablet RxNorm: 523189 1 Tablet(s) PO BID 04/23/2014 05/25/2015 Inactive prednisone 10 mg tablets in a dose pack RxNorm: 904553 1 Tablet(s) PO 02/14/2014 05/25/2015 Inactive Kenalog 40 mg/mL suspension for injection RxNorm: 0400376 1 Milliliter(s) Inj 02/11/2014 02/11/2014 Inactive Keflex 500 mg capsule RxNorm: 374419 1 Capsule(s) PO TID 01/21/2014 01/27/2014 Inactive Kenalog 40 mg/mL suspension for injection RxNorm: 7326870 Milliliter(s) Inj 01/21/2014 01/21/2014 Inactive Synthroid 112 mcg tablet RxNorm: 903569 1 Tablet(s) PO daily TAKE ONE TABLET BY MOUTH EVERY DAY 12/05/2013 11/29/2014 Inactive Ativan 1 mg tablet RxNorm: 196261 1 Tablet(s) PO Q6 PRN 11/05/2013 02/02/2014 Inactive Lexapro 20 mg tablet RxNorm: 767829 1 Tablet(s) PO daily 11/05/2013 11/04/2013 Inactive Lexapro 20 mg tablet RxNorm: 501238 1 Tablet(s) PO daily 11/05/2013 10/30/2014 Inactive Lipitor 10 mg tablet RxNorm: 231141 1 Tablet(s) PO QPM TAKE ONE TABLET BY MOUTH EVERY DAY 09/30/2013 10/20/2014 Inactive Lexapro 20 mg tablet RxNorm: 753636 1 Tablet(s) PO daily 09/30/2013 11/04/2013 Inactive Synthroid 125 mcg tablet RxNorm: 205697 1 Tablet(s) PO daily 09/10/2013 12/04/2013 Inactive Synthroid 100 mcg tablet RxNorm: 062595 1 Tablet(s) PO daily TAKE ONE TABLET BY MOUTH EVERY DAY 09/06/2013 09/09/2013 Inactive Lipitor 10 mg tablet RxNorm: 107860 Tablet(s) PO TAKE ONE TABLET BY MOUTH EVERY DAY 08/15/2013 09/29/2013 Inactive Synthroid 100 mcg tablet RxNorm: 530285 1 Tablet(s) PO daily TAKE ONE TABLET BY MOUTH EVERY DAY 04/26/2013 09/05/2013 Inactive Ativan 1 mg tablet RxNorm: 365957 1 Tablet(s) PO Q6 PRN 03/13/2013 No Stop Date Active Synthroid 100 mcg tablet RxNorm: 193712 1 Tablet(s) PO daily TAKE ONE TABLET BY MOUTH EVERY DAY 03/13/2013 04/25/2013 Inactive Lexapro 20 mg tablet RxNorm: 912590 1/2 Tablet(s) PO BID 03/13/2013 09/29/2013 Inactive Synthroid 112 mcg tablet RxNorm: 358798 Tablet(s) PO TAKE ONE TABLET BY MOUTH EVERY DAY 01/08/2013 03/12/2013 Inactive Lexapro 20 mg tablet RxNorm: 924843 Tablet(s) PO TAKE 1/2 TABLET EVERY MORNING AND TAKE ONE TABLET BY MOUTH AT BEDTIME 10/18/2012 03/12/2013 Inactive Lipitor 20 mg tablet RxNorm: 106581 1/2 Tablet(s) PO daily 08/20/2012 02/04/2013 Inactive Lipitor 10 mg tablet RxNorm: 251792 1 Tablet(s) PO daily 05/23/2012 08/19/2012 Inactive Synthroid 112 mcg tablet RxNorm: 942934 1 Tablet(s) PO daily 12/16/2011 01/07/2013 Inactive Synthroid 112 mcg Tab RxNorm: 401908 1 Tablet(s) PO daily 12/16/2011 12/15/2011 Inactive Lipitor 10 mg tablet RxNorm: 454694 1 Tablet(s) PO daily 12/15/2011 05/22/2012 Inactive Synthroid 112 mcg Tab RxNorm: 510194 1 Tablet(s) PO every other day 11/09/2011 12/15/2011 Inactive every other day Synthroid 112 mcg Tab RxNorm: 640238 1 Tablet(s) PO every other day 10/21/2011 11/08/2011 Inactive every other day Synthroid 125 mcg Tab RxNorm: 566659 1 Tablet(s) PO every other day 10/21/2011 12/16/2011 Inactive every other day Lexapro 20 mg tablet RxNorm: 219331 1.5 Tablet(s) PO daily 1/2 pill in AM and 1 pill at bedtime 09/22/2011 04/18/2012 Inactive 1/2 q am 1 q hs diazepam 5 mg Tab RxNorm: 857415 1 Tablet(s) PO daily 1 tab bid prn 09/21/2011 05/17/2012 Inactive Lexapro 20 mg Tab RxNorm: 521114 1.5 Tablet(s) PO daily 1/2 pill in AM and 1 pill at bedtime 08/22/2011 09/21/2011 Inactive diazepam 5 mg Tab RxNorm: 226009 1 Tablet(s) PO daily 1 tab bid prn 06/20/2011 09/20/2011 Inactive diazepam 5 mg Tab RxNorm: 110840 1 Tablet(s) PO daily 1 tab bid prn 06/20/2011 06/19/2011 Inactive diazepam 5 mg Tab RxNorm: 256062 1 Tablet(s) PO daily 1 tab bid prn 06/17/2011 06/19/2011 Inactive Lipitor 10 mg Tab RxNorm: 746989 1 Tablet(s) PO daily 05/31/2011 11/26/2011 Inactive diazepam 5 mg Tab RxNorm: 478965 1 Tablet(s) PO BID 1 tab bid prn 04/21/2011 05/20/2011 Inactive Calcium 600 + D(3) Oral RxNorm: Oral No Start Date Active Menest 0.625 mg Tab RxNorm: 344355 1 Tablet(s) PO daily No Start Date 06/16/2011 Inactive Synthroid 125 mcg tablet RxNorm: 912110 Tablet(s) PO No Start Date 09/09/2013 Inactive Ativan 1 mg tablet RxNorm: 045707 1 Tablet(s) PO Q6 PRN No Start Date 08/21/2011 Inactive aspirin 81 mg Tab, Delayed Release RxNorm: 4786354 1 Tablet(s) PO daily No Start Date 09/29/2013 Inactive Lexapro 10 mg Tab RxNorm: 430823 1 Tablet(s) PO daily No Start Date 08/22/2011 Inactive prednisone 10 mg tablets in a dose pack RxNorm: 647845 1 Tablet(s) PO No Start Date 02/13/2014 Inactive Synthroid 112 mcg Tab RxNorm: 426415 Tablet(s) PO /thurs/sat/sun No Start Date 10/20/2011 Inactive lorazepam 1 mg Tab RxNorm: 647612 Tablet(s) PO Q6 PRN No Start Date 11/04/2013 Inactive Lipitor 20 mg tablet RxNorm: 096332 1/2 Tablet(s) PO daily No Start Date 08/20/2012 Inactive Vitamin D2 oral RxNorm: oral No Start Date 09/29/2013 Inactive Synthroid 125 mcg Tab RxNorm: 771353 1 Tablet(s) PO No Start Date 10/20/2011 Inactive synthroid 112 mcg mon Medication Administered Medication Codes Instructions Start Date Status Kenalog 40 mg/mL suspension for injection RxNorm: 0608848 Milliliter 10/08/2018 No longer Active Kenalog 40 mg/mL suspension for injection RxNorm: 3951805 1Milliliter 09/11/2018 No longer Active Kenalog 40 mg/mL suspension for injection RxNorm: 6060266 1Milliliter 09/05/2016 No longer Active ceftriaxone 500 mg solution for injection RxNorm: 7219941 07/23/2015 No longer Active Kenalog 40 mg/mL suspension for injection RxNorm: 1453935 1Milliliter 02/11/2014 No longer Active Kenalog 40 mg/mL suspension for injection RxNorm: 4695275 Milliliter 01/21/2014 No longer Active Immunizations Vaccine Codes Date Status Influenza CVX: 141 04/24/2018 completed Influenza CVX: 141 06/07/2017 completed Pneumococcal (Adult) CVX: 133 11/13/2015 completed Influenza CVX: 141 04/15/2014 completed Pneumococcal (Adult) CVX: 33 04/15/2014 completed PPD Unknown 10/10/2013 completed Influenza CVX: 141 09/30/2013 completed Assessments Condition Codes Effective Dates Laceration without foreign body of other part of head, initial encounter ICD-10: S01.81XA ICD-9: 873.40 12/28/2018 Insect bite (nonvenomous) of right upper arm, [...] Pelvic and perineal pain ICD-10: R10.2 ICD-9: PXY2354 02/16/2017 Acute vaginitis ICD-10: N76.0 ICD-9: 623.5 [...] Visit Reason For Visit Effective Dates Notes Hospital Follow Up 12/28/2018 arthropod bite 12/04/2018 Annual Medicare Wellness Exam [...] Ord30 C/HDL 3.0 Ratio 11/26/2018 Free T4 Dwk447 FREE T4 0.98 ng/dL 11/26/2018 Cbc With [...] 29.6 pg 11/26/2018 Cbc With Differential Ord2 [place]% 7.7 % 11/26/2018 Cbc With Differential Ord2 [...] 1.41 K/ul 11/26/2018 Cbc With Differential Ord2 [place] ABS# 0.5 K/ul 11/26/2018 Cbc With Differential Ord2 Eos ABS# 0.2 K/ul 11/26/2018 Cbc With Differential Ord2 Baso ABS# 0.1 K/ul 11/26/2018 Comp Metabolic Ijc309 NA 140 mEq/L 11/26/2018 Comp Metabolic Pcv531 K 4.4 mEq/L 11/26/2018 Comp Metabolic Ltx033 CL 104 mEq/L 11/26/2018 Comp Metabolic Bcs859 CO2 28.0 mEq/L 11/26/2018 Comp Metabolic Iax635 ANION GAP 12 11/26/2018 Comp Metabolic Oxp091 GLUCOSE 91 mg/dL 11/26/2018 Comp Metabolic Pwh156 Creat 0.9 mg/dL 11/26/2018 Comp Metabolic Tmo557 eGFR 66 ml/min/1.73m2 11/26/2018 Comp Metabolic Wrs672 BUN 15 mg/dL 11/26/2018 Comp Metabolic Sic903 B/C Ratio 16.7 Ratio 11/26/2018 Comp Metabolic Jww697 CALCIUM 9.3 mg/dL 11/26/2018 Comp Metabolic Pvu867 ALK PHOS 81 U/L 11/26/2018 Comp Metabolic Ptd023 AST(SGOT) 14 U/L 11/26/2018 Comp Metabolic Frl244 ALT(SGPT) 12 U/L 11/26/2018 Comp Metabolic Ddw760 BILI T 0.7 mg/dL 11/26/2018 Comp Metabolic Dnp557 ALBUMIN 4.1 g/dL 11/26/2018 Comp Metabolic Rtl310 TPRO 6.7 g/dL 11/26/2018 Comp Metabolic Qdf159 GLOB 2.6 g/dL 11/26/2018 Comp Metabolic Bij611 A/G Ratio 1.5 Ratio 11/26/2018 Comp Metabolic Vhe222 Osmo 280 mOsmo 11/26/2018 Tsh Ord6 TSH [...] (3rd IS) 0.17 uIU/mL 11/23/2017 Free T4 Dky092 FREE T4 1.10 ng/dL 11/23/2017 Comp Metabolic Spf933 NA 142 mEq/L 11/23/2017 Comp Metabolic Zmw926 K 4.4 mEq/L 11/23/2017 Comp Metabolic Pfa751 CL 109 mEq/L 11/23/2017 Comp Metabolic Bfu105 CO2 28.0 mEq/L 11/23/2017 Comp Metabolic Kvz270 ANION GAP 9 11/23/2017 Comp Metabolic Yet842 GLUCOSE 106 mg/dL 11/23/2017 Comp Metabolic Ygj792 Creat 0.9 mg/dL 11/23/2017 Comp Metabolic Szq019 eGFR 68 ml/min/1.73m2 11/23/2017 Comp Metabolic Tcl070 BUN 17 mg/dL 11/23/2017 Comp Metabolic Xwo801 B/C Ratio 19.3 Ratio 11/23/2017 Comp Metabolic Cex927 CALCIUM 9.0 mg/dL 11/23/2017 Comp Metabolic Ybs127 ALK PHOS 65 U/L 11/23/2017 Comp Metabolic Hfn909 AST(SGOT) 18 U/L 11/23/2017 Comp Metabolic Xky427 ALT(SGPT) 16 U/L 11/23/2017 Comp Metabolic Psr802 BILI T 0.5 mg/dL 11/23/2017 Comp Metabolic Wco536 ALBUMIN 4.2 g/dL 11/23/2017 Comp Metabolic Sfc360 TPRO 6.5 g/dL 11/23/2017 Comp Metabolic Khm831 GLOB 2.3 g/dL 11/23/2017 Comp Metabolic Mxp858 A/G Ratio 1.8 Ratio 11/23/2017 Comp Metabolic Drf542 Osmo 285 mOsmo 11/23/2017 Lipid Ord30 CHOL [...] hTSH II 4.83 uIU/mL 06/07/2017 Comp Metabolic Jib642 NA 141 mEq/L 06/07/2017 Comp Metabolic Dtw866 K 4.3 mEq/L 06/07/2017 Comp Metabolic Fxo177 CL 106 mEq/L 06/07/2017 Comp Metabolic Hhz863 CO2 26.0 mEq/L 06/07/2017 Comp Metabolic Zos228 ANION GAP 13 06/07/2017 Comp Metabolic Tvo770 GLUCOSE 93 mg/dL 06/07/2017 Comp Metabolic Pbq283 Creat 0.9 mg/dL 06/07/2017 Comp Metabolic Xyg637 eGFR 65 ml/min/1.73m2 06/07/2017 Comp Metabolic Dql958 BUN 10 mg/dL 06/07/2017 Comp Metabolic Wlx209 B/C Ratio 11.0 Ratio 06/07/2017 Comp Metabolic Jxj730 CALCIUM 8.9 mg/dL 06/07/2017 Comp Metabolic Ccr541 ALK PHOS 69 U/L 06/07/2017 Comp Metabolic Fna928 AST(SGOT) 18 U/L 06/07/2017 Comp Metabolic Yos337 ALT(SGPT) 15 U/L 06/07/2017 Comp Metabolic Kfr891 BILI T 0.5 mg/dL 06/07/2017 Comp Metabolic Ujc083 ALBUMIN 4.1 g/dL 06/07/2017 Comp Metabolic Hcj310 TPRO 6.5 g/dL 06/07/2017 Comp Metabolic Eoh082 GLOB 2.4 g/dL 06/07/2017 Comp Metabolic Ulq701 A/G Ratio 1.7 Ratio 06/07/2017 Comp Metabolic Lio527 Osmo 280 mOsmo 06/07/2017 Cbc With Differential [...] 30.7 pg 06/07/2017 Cbc With Differential Ord2 [place]% 9.1 [...] Baso ABS# 0.0 K/ul 06/07/2017 Free T4 Kam518 FREE T4 0.92 ng/dL 06/07/2017 Tsh Ord6 hTSH II 1.07 uIU/mL 11/17/2016 Free T4 Vub297 FREE T4 1.02 ng/dL 11/17/2016 Lipid Ord30 CHOL 195 mg/dL 10/13/2016 Lipid Ord30 HDL 68.0 mg/dl 10/13/2016 Lipid Ord30 TRIG 69 mg/dL 10/13/2016 Lipid Ord30 LDL 113 mg/dL 10/13/2016 Lipid Ord30 C/HDL 2.9 Ratio 10/13/2016 Comp Metabolic Wrx670 NA 138 mEq/L 10/13/2016 Comp Metabolic Hbz671 K 4.4 mEq/L 10/13/2016 Comp Metabolic Woy491 CL 102 mEq/L 10/13/2016 Comp Metabolic Vtz283 CO2 29.0 mEq/L 10/13/2016 Comp Metabolic Doc617 ANION GAP 11 10/13/2016 Comp Metabolic Lrr271 GLUCOSE 85 mg/dL 10/13/2016 Comp Metabolic Zha673 Creat 1.0 mg/dL 10/13/2016 Comp Metabolic Ltp366 eGFR 59 ml/min/1.73m2 10/13/2016 Comp Metabolic Rcx953 BUN 21 mg/dL 10/13/2016 Comp Metabolic Pui816 B/C Ratio 21.2 Ratio 10/13/2016 Comp Metabolic Jai616 CALCIUM 9.7 mg/dL 10/13/2016 Comp Metabolic Eji822 ALK PHOS 70 U/L 10/13/2016 Comp Metabolic Ipc462 AST(SGOT) 17 U/L 10/13/2016 Comp Metabolic Tgn046 ALT(SGPT) 14 U/L 10/13/2016 Comp Metabolic Qqu600 BILI T 0.9 mg/dL 10/13/2016 Comp Metabolic Tzs096 ALBUMIN 4.4 g/dL 10/13/2016 Comp Metabolic Qjv770 TPRO 7.1 g/dL 10/13/2016 Comp Metabolic Gyj939 GLOB 2.7 g/dL 10/13/2016 Comp Metabolic Unz057 A/G Ratio 1.6 Ratio 10/13/2016 Comp Metabolic Qul048 Osmo 278 mOsmo 10/13/2016 Cbc With Differential [...] 29.7 pg 10/13/2016 Cbc With Differential Ord2 [place]% 7.7 [...] Baso ABS# 0.0 K/ul 10/13/2016 Free T4 Qmn772 FREE T4 1.31 ng/dL 08/17/2016 Tsh Ord6 hTSH II 0.64 uIU/mL 08/17/2016 Free T4 Vjr587 FREE T4 1.49 ng/dL 05/10/2016 Comp Metabolic Apg395 NA 139 mEq/L 05/10/2016 Comp Metabolic Vli407 K 4.5 mEq/L 05/10/2016 Comp Metabolic Obd721 CL 104 mEq/L 05/10/2016 Comp Metabolic Ufz518 CO2 24.0 mEq/L 05/10/2016 Comp Metabolic Jkp759 ANION GAP 16 05/10/2016 Comp Metabolic Pqx185 GLUCOSE 87 mg/dL 05/10/2016 Comp Metabolic Caw511 Creat 0.9 mg/dL 05/10/2016 Comp Metabolic Vav341 eGFR 71 ml/min/1.73m2 05/10/2016 Comp Metabolic Qkl821 BUN 12 mg/dL 05/10/2016 Comp Metabolic Hym138 B/C Ratio 14.1 Ratio 05/10/2016 Comp Metabolic Nqg308 CALCIUM 9.6 mg/dL 05/10/2016 Comp Metabolic Igm647 ALK PHOS 89 U/L 05/10/2016 Comp Metabolic Vjm387 AST(SGOT) 17 U/L 05/10/2016 Comp Metabolic Zqt376 ALT(SGPT) 17 U/L 05/10/2016 Comp Metabolic Tvi722 BILI T 0.9 mg/dL 05/10/2016 Comp Metabolic Swc390 ALBUMIN 4.2 g/dL 05/10/2016 Comp Metabolic Vwb760 TPRO 6.7 g/dL 05/10/2016 Comp Metabolic Spq390 GLOB 2.5 g/dL 05/10/2016 Comp Metabolic Rnj683 A/G Ratio 1.7 Ratio 05/10/2016 Comp Metabolic Xrh656 Osmo 277 mOsmo 05/10/2016 Cbc With Differential [...] 29.1 pg 05/10/2016 Cbc With Differential Ord2 [place]% 8.3 [...] hTSH II 0.03 uIU/mL 05/10/2016 Free T4 Hlq679 FREE T4 1.67 ng/dL 02/18/2016 Tsh Ord6 hTSH II 0.06 uIU/mL 02/18/2016 Comp Metabolic Fnz113 NA 138 mEq/L 02/18/2016 Comp Metabolic Jen635 K 4.5 mEq/L 02/18/2016 Comp Metabolic Syd285 CL 104 mEq/L 02/18/2016 Comp Metabolic Jhv256 CO2 26.0 mEq/L 02/18/2016 Comp Metabolic Ohc600 ANION GAP 13 02/18/2016 Comp Metabolic Tbv554 GLUCOSE 88 mg/dL 02/18/2016 Comp Metabolic Rwi126 Creat 0.9 mg/dL 02/18/2016 Comp Metabolic Pvi694 eGFR 69 ml/min/1.73m2 02/18/2016 Comp Metabolic Qth437 BUN 14 mg/dL 02/18/2016 Comp Metabolic Tsz866 B/C Ratio 16.1 Ratio 02/18/2016 Comp Metabolic Arc936 CALCIUM 9.4 mg/dL 02/18/2016 Comp Metabolic Fdc444 ALK PHOS 95 U/L 02/18/2016 Comp Metabolic Ouj673 AST(SGOT) 19 U/L 02/18/2016 Comp Metabolic Cyl446 ALT(SGPT) 18 U/L 02/18/2016 Comp Metabolic Fie150 BILI T 0.7 mg/dL 02/18/2016 Comp Metabolic Djb286 ALBUMIN 4.4 g/dL 02/18/2016 Comp Metabolic Wdo271 TPRO 6.9 g/dL 02/18/2016 Comp Metabolic Iqo264 GLOB 2.5 g/dL 02/18/2016 Comp Metabolic Igh021 A/G Ratio 1.7 Ratio 02/18/2016 Comp Metabolic Bzk331 Osmo 276 mOsmo 02/18/2016 Lipid Ord30 CHOL [...] Baso ABS# 0.0 K/ul 02/18/2016 Comp Metabolic Yyo781 NA 136 mEq/L 06/08/2015 Comp Metabolic Qym391 K 3.9 mEq/L 06/08/2015 Comp Metabolic Hsa318 CL 103 mEq/L 06/08/2015 Comp Metabolic Cuk220 CO2 25.0 mEq/L 06/08/2015 Comp Metabolic Sde916 ANION GAP 12 06/08/2015 Comp Metabolic Nzy000 GLUCOSE 91 mg/dL 06/08/2015 Comp Metabolic Awu583 Creat 0.9 mg/dL 06/08/2015 Comp Metabolic Bhm243 eGFR 68 ml/min/1.73m2 06/08/2015 Comp Metabolic Ctu258 BUN 10 mg/dL 06/08/2015 Comp Metabolic Gyt797 B/C Ratio 11.4 Ratio 06/08/2015 Comp Metabolic Zok443 CALCIUM 9.4 mg/dL 06/08/2015 Comp Metabolic Kwf349 ALK PHOS 88 U/L 06/08/2015 Comp Metabolic Txw876 AST(SGOT) 20 U/L 06/08/2015 Comp Metabolic Dhw350 ALT(SGPT) 18 U/L 06/08/2015 Comp Metabolic Oek786 BILI T 0.8 mg/dL 06/08/2015 Comp Metabolic Wpf639 ALBUMIN 4.4 g/dL 06/08/2015 Comp Metabolic Pjk563 TPRO 7.0 g/dL 06/08/2015 Comp Metabolic Maz483 GLOB 2.6 g/dL 06/08/2015 Comp Metabolic Jnl972 A/G Ratio 1.7 Ratio 06/08/2015 Comp Metabolic Snm832 Osmo 271 mOsmo 06/08/2015 Tsh Ord6 hTSH [...] Ord2 RDW 14.4 % 06/08/2015 LYME EIA 9968307 LYME EIA 0.24 04/25/2014 TULAREM AB [id number] TULAREM AB <1:20 04/24/2014 RMSF IFA [id number] IGG RMSF <1:16 04/24/2014 RMSF IFA [id number] IGM RMSF <1:10 04/24/2014 E CHAFF AB [id number] IGG E CHFF <1:16 04/24/2014 E CHAFF AB [id number] IGM E CHFF <1:10 04/24/2014 ICT OCCULT [id number] ICT OCCULT NEG 10/11/2013 Review of Systems System Result Effective Dates Constitutional No recent illness 12/28/2018 Constitutional No anorexia 12/28/2018 Constitutional No night sweats 12/28/2018 Constitutional No chills 12/28/2018 Constitutional No diaphoresis 12/28/2018 Constitutional No fatigue 12/28/2018 Constitutional No fever 12/28/2018 Constitutional No insomnia 12/28/2018 Constitutional No malaise 12/28/2018 Constitutional No weight loss 12/28/2018 Constitutional No weight gain 12/28/2018 Eyes No eye discharge 12/28/2018 Eyes No eye erythema 12/28/2018 Ears/Nose/Throat/Neck facial swelling 12/28/2018 Ears/Nose/Throat/Neck headache 12/28/2018 Ears/Nose/Throat/Neck dizziness 12/28/2018 Cardiovascular No chest pain/pressure 12/28/2018 Respiratory No cough 12/28/2018 Gastrointestinal No vomiting 12/28/2018 Gastrointestinal No nausea 12/28/2018 Dermatologic laceration 12/28/2018 Neurologic No alteration of consciousness 12/28/2018 Constitutional No recent illness 12/04/2018 Constitutional No [...] 1994 Constitutional general appearance Overall: well developed 12/28/2018 None Full Exam - General 1994 Constitutional general appearance Overall: in no acute distress 12/28/2018 None Full Exam - General 1994 Constitutional general appearance Overall: well nourished 12/28/2018 None Full Exam - General 1994 Ears/Nose/Throat otoscopic exam Overall: external auditory canals clear 12/28/2018 None Full Exam - General 1994 Ears/Nose/Throat otoscopic exam Overall: tympanic membranes clear 12/28/2018 None Full Exam - General 1994 Ears/Nose/Throat oral cavity/pharynx/larynx Overall: oral mucosa clear 12/28/2018 None Full Exam - General 1994 Respiratory auscultation Overall: breath sounds clear bilaterally 12/28/2018 None Full Exam - General 1994 Respiratory respiratory effort/rhythm Overall: no retractions 12/28/2018 None Full Exam - General 1994 Respiratory respiratory effort/rhythm Overall: normal rate 12/28/2018 None Full Exam - General 1994 Cardiovascular auscultation of heart Overall: regular rate 12/28/2018 None Full Exam - General 1994 Cardiovascular auscultation of heart Overall: normal heart sounds 12/28/2018 None Full Exam - General 1994 Integument inspection of skin Location: face 12/28/2018 laceration right cheek with sutures x 6 d/i, abrasion right cheek -swelling right cheek and upper lip Full Exam - General 1994 Psychiatric orientation/consciousness Overall: oriented to person, place and time 12/28/2018 None Full Exam - Dermatology Constitutional general [...] bending 07/12/2018 None Full Exam - General 1995 Constitutional general appearance Overall: well developed 05/07/2018 None Full Exam - General 1995 Constitutional [...] J3301 09/11/2018 URINALYSIS NONAUTO W/O SCOPE CPT-4: 61456 05/07/2018 ADMIN INFLUENZA VIRUS VAC CPT-4: G0008 04/24/2018 FLU VACC PRSV FREE INC ANTIG CPT-4: 86629 04/24/2018 PPPS, SUBSEQ VISIT CPT- 4: G0439 11/28/2017 ADMIN INFLUENZA VIRUS VAC CPT-4: G0008 06/07/2017 FLU VACC PRSV FREE INC ANTIG CPT-4: 90537 06/07/2017 PPPS, SUBSEQ VISIT CPT- 4: G0439 11/17/2016 TRIAMCINOLONE ACET INJ NOS CPT-4: J3301 09/05/2016 PPPS, SUBSEQ VISIT CPT- 4: G0439 11/13/2015 PNEUMOCOCCAL VACC 13 STEPHANIE IM Formatting Model/CDA Sections, Assigned to/Lila Colon SNOMED CT: 55405414 CPT-4: 75410Nqpyelz 11/13/2015 ADMIN PNEUMOCOCCAL VACCINE SNOMED CT: 71043078 CPT-4: G0009 11/13/2015 ROCEPHIN, PER 250 MG CPT- 4: J0696 07/23/2015 URINALYSIS NONAUTO W/O SCOPE CPT-4: 41064 10/10/2014 ROUTINE VENIPUNCTURE CPT- 4: 07076 04/23/2014 Pneumococcal Polysaccharide Vaccine, 23-Valent, Ad CPT-4: 26895 04/15/2014 ADMIN INFLUENZA VIRUS VAC CPT-4: G0008 04/15/2014 FLU VAC NO PRSV 4 STEPHANIE 3 YRS+ CPT-4: 73172 04/15/2014 ADMIN PNEUMOCOCCAL VACCINE SNOMED CT: 82318669 CPT-4: G0009 04/15/2014 THER/PROPH/DIAG INJ SC/IM CPT-4: 59264 02/11/2014 TRIAMCINOLONE ACET INJ NOS CPT-4: J3301 02/11/2014 TRIAMCINOLONE ACET INJ NOS CPT-4: J3301 01/21/2014 INITIAL PREVENTIVE EXAM CPT-4: G0402 09/30/2013 PRESCRIP TRANSMIT VIA ERX SY CPT-4: G8553 03/13/2013 Vital Signs Date Vital 12/28/2018 Blood Pressure 1: 110/62 Code: 8480-6 Heart Rate 1: 60 bpm Height: SpO2: 98% Weight: 12/04/2018 Blood Pressure 1: 130/78 Code: 8480-6 BMI: 28.1 Code: 25329-0 Heart Rate 1: 80 bpm Height: 5'5" SpO2: 97% Weight: 169 lbs 11/28/2018 Blood Pressure 1: 132/74 Code: 8480-6 BMI: 28.1 Code: 74985-8 Heart Rate 1: 73 bpm Height: 5'5" SpO2: 94% Waist Measure (cm): 97 cm Weight: 169 lbs 10/08/2018 Blood Pressure 1: 140/82 Code: 8480-6 Heart Rate 1: 80 bpm Height: 5'5" SpO2: 95% Temperature: 37.0 (C) / 98.6 (F) Weight: 09/11/2018 Blood Pressure 1: 114/76 Code: 8480-6 BMI: 29.3 Code: 71569-6 Heart Rate 1: 80 bpm Height: 5'5" SpO2: 95% Temperature: 36.3 (C) / 97.3 (F) Weight: 176 lbs 07/12/2018 Blood Pressure 1: 126/76 Code: 8480-6 BMI: 29.3 Code: 07584-2 Heart Rate 1: 70 bpm Height: 5'5" SpO2: 96% Weight: 176 lbs 05/07/2018 Blood Pressure 1: 118/72 Code: 8480-6 BMI: 29.5 Code: 00342-6 Heart Rate 1: 71 bpm Height: 5'5" SpO2: 98% Weight: 177 lbs 02/21/2018 Blood Pressure 1: 120/78 Code: 8480-6 BMI: 29.0 Code: 78098-5 Heart Rate 1: 68 bpm Height: 5'5" SpO2: 96% Weight: 174 lbs 11/28/2017 Blood Pressure 1: 122/98 Code: 8480-6 BMI: 31.0 Code: 98625-9 Heart Rate 1: 89 bpm Height: 5'5" SpO2: 98% Waist Measure (cm): 91 cm Weight: 186 lbs 08/29/2017 Blood Pressure 1: 146/80 Code: 8480-6 BMI: 29.5 Code: 66715-2 Heart Rate 1: 68 bpm Height: 5'5" SpO2: 98% Temperature: 36.6 (C) / 97.8 (F) Weight: 177 lbs 06/13/2017 Blood Pressure 1: 138/76 Code: 8480-6 BMI: 29.6 Code: 63376-1 Heart Rate 1: 63 bpm Height: 5'5" SpO2: 95% Weight: 178 lbs 02/16/2017 Blood Pressure 1: 128/80 Code: 8480-6 BMI: 29.9 Code: 19584-1 Heart Rate 1: 77 bpm Height: 5'5" SpO2: 96% Weight: 179 lbs 8 oz 02/06/2017 Blood Pressure 1: 140/80 Code: 8480-6 BMI: 29.8 Code: 52012-3 Heart Rate 1: 72 bpm Height: 5'5" SpO2: 97% Weight: 179 lbs 11/17/2016 Blood Pressure 1: 130/72 Code: 8480-6 BMI: 29.6 Code: 50033-4 Heart Rate 1: 62 bpm Height: 5'5" SpO2: 98% Waist Measure (cm): 91 cm Weight: 178 lbs 10/12/2016 Blood Pressure 1: 128/78 Code: 8480-6 BMI: 28.5 Code: 27590-1 Heart Rate 1: 62 bpm Height: 5'5" SpO2: 97% Weight: 171 lbs 09/05/2016 Blood Pressure 1: 122/70 Code: 8480-6 BMI: 28.0 Code: 78047-8 Heart Rate 1: 65 bpm Height: 5'5" SpO2: 94% Weight: 168 lbs 06/21/2016 Blood Pressure 1: 120/82 Code: 8480-6 BMI: 28.3 Code: 92409-6 Heart Rate 1: 65 bpm Height: 5'5" SpO2: 97% Weight: 170 lbs 05/24/2016 Blood Pressure 1: 136/80 Code: 8480-6 BMI: 28.1 Code: 05466-1 Heart Rate 1: 71 bpm Height: 5'5" SpO2: 96% Weight: 169 lbs 05/10/2016 Blood Pressure 1: 120/82 Code: 8480-6 BMI: 27.6 Code: 09059-1 Heart Rate 1: 86 bpm Height: 5'5" SpO2: 95% Weight: 166 lbs 05/03/2016 Blood Pressure 1: 124/78 Code: 8480-6 BMI: 28.1 Code: 82015-8 Heart Rate 1: 88 bpm Height: 5'5" SpO2: 97% Weight: 169 lbs 11/13/2015 Blood Pressure 1: 130/60 Code: 8480-6 BMI: 30.0 Code: 05054-7 Heart Rate 1: 7 bpm Height: 5'5" Waist Measure (cm): 97 cm Weight: 180 lbs 07/23/2015 Blood Pressure 1: 124/70 Code: 8480-6 BMI: 29.6 Code: 95717-2 Heart Rate 1: 74 bpm Height: 5'5" SpO2: 96% Temperature: 36.7 (C) / 98.1 (F) Weight: 178 lbs 07/06/2015 Blood Pressure 1: 138/78 Code: 8480-6 BMI: 29.6 Code: 48209-7 Heart Rate 1: 84 bpm Height: 5'5" SpO2: 96% Weight: 178 lbs 05/26/2015 Blood Pressure 1: 122/80 Code: 8480-6 BMI: 29.6 Code: 76867-5 Heart Rate 1: 84 bpm Height: 5'5" Weight: 178 lbs 02/16/2015 Blood Pressure 1: 124/82 Code: 8480-6 BMI: 29.0 Code: 39378-6 Heart Rate 1: 68 bpm Height: 5'5" Weight: 174 lbs 12/10/2014 Blood Pressure 1: 112/64 Code: 8480-6 BMI: 28.6 Code: 40149-9 Heart Rate 1: 80 bpm Height: 5'5" Weight: 172 lbs 10/16/2014 Blood Pressure 1: 128/84 Code: 8480-6 Heart Rate 1: 64 bpm Weight: 172 lbs 10/09/2014 Blood Pressure 1: 136/90 Code: 8480-6 BMI: 28.6 Code: 85874-4 Heart Rate 1: 76 bpm Height: 5'5" Weight: 172 lbs 08/26/2014 Blood Pressure 1: 118/72 Code: 8480-6 BMI: 29.0 Code: 48792-8 Heart Rate 1: 76 bpm Height: 5'5" Weight: 174 lbs 05/16/2014 Blood Pressure 1: 110/72 Code: 8480-6 BMI: 29.0 Code: 54402-8 Height: 5'5" Weight: 174 lbs 04/23/2014 Blood Pressure 1: 124/70 Code: 8480-6 BMI: 29.0 Code: 70158-1 Heart Rate 1: 72 bpm Height: 5'5" Weight: 174 lbs 04/15/2014 Temperature: 36.5 (C) / 97.7 (F) 01/21/2014 Blood Pressure 1: 98/62 Code: 8480-6 BMI: 29.0 Code: 87568- 5 Heart Rate 1: 84 bpm Height: 5'5" Temperature: 37.1 (C) / 98.7 (F) Weight: 174 lbs 12/05/2013 Blood Pressure 1: 138/88 Code: 8480-6 BMI: 29.0 Code: 47266-1 Heart Rate 1: 60 bpm Height: 5'5" Weight: 174 lbs 11/05/2013 Blood Pressure 1: 118/80 Code: 8480-6 BMI: 28.8 Code: 51475-5 Heart Rate 1: 76 bpm Height: 5'5" Weight: 173 lbs 10/15/2013 Blood Pressure 1: 120/78 Code: 8480-6 BMI: 29.1 Code: 70249-8 Heart Rate 1: 88 bpm Height: 5'5" Weight: 175 lbs 09/30/2013 Blood Pressure 1: 112/84 Code: 8480-6 BMI: 29.1 Code: 21034-0 Heart Rate 1: 68 bpm Height: 5'5" Weight: 175 lbs 03/13/2013 Blood Pressure 1: 112/84 Code: 8480-6 BMI: 28.6 Code: 92654-9 Heart Rate 1: 64 bpm Height: 5'5" Weight: 173 lbs 10/04/2012 Blood Pressure 1: 120/72 Code: 8480-6 BMI: 28.0 Code: 44479-6 Heart Rate 1: 64 bpm Height: 5'5" Weight: 169 lbs 08/22/2011 Blood Pressure 1: 134/84 Code: 8480-6 BMI: 27.5 Code: 03807-2 Heart Rate 1: 68 bpm Height: 5'5" Respiratory Rate: 16 bpm Weight: 166 lbs 8 oz 06/17/2011 Blood Pressure 1: 120/76 Code: 8480-6 BMI: 27.0 Code: 79892-0 Heart Rate 1: 58 bpm Height: 5'5" Respiratory Rate: 16 bpm Weight: 163 lbs Functional Status No Functional Status data History of Present Illness Symptom Name Status Result Effective Date Notes _ Other: fall 12/28/2018 None Location face 12/28/2018 None Mechanism of injury moderate energy 12/28/2018 None Location on both arms 12/04/2018 None Quality [...] Encounters Encounter Performer Location Codes Date () 62547 EST. PATIENT, LEVEL III Diagnosis: Laceration without foreign body of other part of head, initial encounter[ICD10: S01.81XA] Suma Alvarado MD, [facility] CPT-4: 66471 12/28/2018 06236 EST. PATIENT, LEVEL II Diagnosis: Insect bite (nonvenomous) of right upper arm, initial encounter[ICD10: S40.861A] Diagnosis: Insect bite of unspecified part of neck, initial encounter[ICD10: S10.96XA] Suma Alvarado MD, [facility] CPT-4: 45134 12/04/2018 ([id number]) 66616 EST. PATIENT, LEVEL III Diagnosis: Cough[ICD10: R05] Diagnosis: Acute bronchitis, unspecified[ICD10: J20.9] Suma Alvarado MD, [facility] CPT-4: 98959 10/08/2018 ([id number]) 37188 EST. PATIENT, LEVEL III Diagnosis: Cough[ICD10: R05] Diagnosis: Acute recurrent maxillary sinusitis[ICD10: J01.01] Suma Alvarado MD, [facility] CPT-4: 59016 09/11/2018 04005 EST. PATIENT, LEVEL III Diagnosis: Pain in right hand[ICD10: M79.641] Gina Alvarado MD, [facility] CPT-4: 04977 07/12/2018 ([id number]) 66812 EST. PATIENT, LEVEL II Diagnosis: Dysuria[ICD10: R30.0] Suma Alvarado MD, [facility] CPT-4: 70236 05/07/2018 52184 EST. PATIENT, LEVEL IV Diagnosis: Tinnitus, bilateral[ICD10: H93.13] Diagnosis: Other allergic rhinitis[ICD10: J30.89] Gina Alvarado MD, [facility] CPT- 4: 37619 02/21/2018 98075 EST. PATIENT, LEVEL III Diagnosis: Acute laryngopharyngitis[ICD10: J06.0] Diagnosis: Other allergic rhinitis[ICD10: J30.89] Gina Alvarado MD, [facility] CPT- 4: 05162 08/29/2017 ([id number]) 74756 EST. PATIENT, LEVEL IV Diagnosis: Postprocedural hypothyroidism[ICD10: E89.0] Diagnosis: Major depressive disorder, recurrent, moderate[ICD10: F33.1] Diagnosis: Generalized anxiety disorder[ICD10: F41.1] Elina Alvarado MD, [facility] CPT-4: 38861 06/13/2017 ([id number]) 73399 EST. PATIENT, LEVEL IV Diagnosis: Pelvic and perineal pain[ICD10: R10.2] Diagnosis: Acute vaginitis[ICD10: N76.0] Suma Alvarado MD, [facility] CPT-4: 84339 02/16/2017 ([id number]) 86497 EST. PATIENT, LEVEL III Diagnosis: Postprocedural hypothyroidism[ICD10: E89.0] Diagnosis: Major depressive disorder, recurrent, moderate[ICD10: F33.1] Elina Alvarado MD, [facility] CPT-4: 60092 02/06/2017 ([id number]) 95212 EST. PATIENT, LEVEL III Diagnosis: Generalized anxiety disorder[ICD10: F41.1] Elina Alvarado MD, [facility] CPT-4: 17246 10/12/2016 ([id number]) 04879 EST. PATIENT, LEVEL III Diagnosis: Cough[ICD10: R05] Diagnosis: Acute upper respiratory infection, unspecified[ICD10: J06.9] Suma Alvarado MD, [facility] CPT-4: 12363 09/05/2016 ([id number]) 76989 EST. PATIENT, LEVEL III Diagnosis: Generalized anxiety disorder[ICD10: F41.1] Diagnosis: Major depressive disorder, recurrent, moderate[ICD10: F33.1] Diagnosis: Postprocedural hypothyroidism[ICD10: E89.0] Elina Alvarado MD, [facility] CPT-4: 04806 06/21/2016 ([id number]) 29938 EST. PATIENT, LEVEL III Diagnosis: Major depressive disorder, recurrent, moderate[ICD10: F33.1] Elina Alvarado MD, [facility] CPT-4: 01137 05/24/2016 ([id number]) 18221 EST. PATIENT, LEVEL III Diagnosis: Major depressive disorder, recurrent, moderate[ICD10: F33.1] Elina Alvarado MD, [facility] CPT-4: 56596 05/10/2016 ([id number]) 07559 EST. PATIENT, LEVEL III Diagnosis: Generalized anxiety disorder[ICD10: F41.1] Diagnosis: Major depressive disorder, recurrent, moderate[ICD10: F33.1] Suma Alvarado MD, [facility] CPT-4: 49155 05/03/2016 ([id number]) 48660 EST. PATIENT, LEVEL III Diagnosis: Cough[ICD10: R05] Diagnosis: Acute upper respiratory infection, unspecified[ICD10: J06.9] Suma Alvarado MD [facility] CPT-4: 14626 07/23/2015 ([id number]) 38654 EST. PATIENT, LEVEL III Diagnosis: Hypothyroidism, unspecified[ICD10: E03.9] Diagnosis: Generalized anxiety disorder[ICD10: F41.1] Diagnosis: Other depressive episodes[ICD10: F32.8] Elina Alvarado MD [facility] CPT-4: 03713 07/06/2015 ([id number]) 15266 EST. PATIENT, LEVEL IV Diagnosis: Generalized anxiety disorder[ICD10: F41.1] Diagnosis: Major depressive disorder, recurrent, unspecified[ICD10: F33.9] Elina Alvarado MD [facility] CPT-4: 75269 05/26/2015 ([id number]) 89785 EST. PATIENT, LEVEL II Diagnosis: 2Nd degree burn of multiple fingers of right hand not including thumb[ICD9: 944.23] Suma Alvarado MD, [facility] CPT-4: 84309 02/16/2015 ([id number]) 03185 EST. PATIENT, LEVEL IV Diagnosis: Hammertoe[ICD9: 735.4] Diagnosis: Foot pain[ICD9: 729.5] Diagnosis: HYPOTHYROIDISM[ICD9: 244.9] Elina Alvarado MD, [facility] CPT-4: 57507 12/10/2014 ([id number]) 23534 EST. PATIENT, LEVEL III Diagnosis: Urinary incontinence[ICD9: 788.30] Diagnosis: Pelvic pain in female[ICD9: 625.9] Elina Alvarado MD [facility] CPT- 4: 54176 10/16/2014 ([id number]) 87555 EST. PATIENT, LEVEL III Diagnosis: Urinary incontinence[ICD9: 788.30] Diagnosis: Pelvic pain in female[ICD9: 625.9] Suma Alvarado MD [facility] CPT- 4: 40919 10/09/2014 ([id number]) 29088 EST. PATIENT, LEVEL III Diagnosis: HYPOTHYROIDISM[ICD9: 244.9] Elina Alvarado MD, [facility] CPT-4: 36473 08/26/2014 ([id number]) 28664 EST. PATIENT, LEVEL III Diagnosis: Neck pain[ICD9: 723.1] Diagnosis: Muscle tension headache[ICD9: 307.81] Suma Alvarado MD, [facility] CPT-4: 81569 05/16/2014 ([id number]) 78425 EST. PATIENT, LEVEL IV Diagnosis: Arthropod bite[ICD9: 919.4] Diagnosis: Poison gilmer dermatitis[ICD9: 692.6] Diagnosis: Arthralgia[ICD9: 719.40] Diagnosis: Myalgia[ICD9: 729.1] Elina Alvarado MD, [facility] CPT-4: 17452 04/23/2014 ([id number]) 92951 EST. PATIENT, LEVEL III Diagnosis: ACUTE URI[ICD9: 465.9] Diagnosis: COUGH[ICD9: 786.2] Suma Alvarado MD, [facility] CPT-4: 18040 01/21/2014 ([id number]) 42604 EST. PATIENT, LEVEL III Diagnosis: HYPOTHYROIDISM[ICD9: 244.9] Diagnosis: GENERALIZED ANXIETY DISEASE[ICD9: 300.02] Elina Alvarado MD, [facility] CPT-4: 24673 12/05/2013 ([id number]) 81091 EST. PATIENT, LEVEL III Diagnosis: GENERALIZED ANXIETY DISEASE[ICD9: 300.02] Diagnosis: DEPRESSIVE DISORDER NEC[ICD9: 311] Elina Alvarado MD [facility] CPT- 4: 84775 11/05/2013 ([id number]) 49621 EST. PATIENT, LEVEL III Diagnosis: HYPOTHYROIDISM[ICD9: 244.9] Elina Alvarado MD, [facility] CPT-4: 50102 10/15/2013 ([id number]) Miscellaneous no charge Diagnosis: Colon cancer screening[ICD9: V76.51] Elina Alvarado MD, [facility] CPT- 4: 28203 10/10/2013 ([id number]) 36748 EST. PATIENT, LEVEL IV Diagnosis: HYPOTHYROIDISM[ICD9: 244.9] Diagnosis: DEPRESSIVE DISORDER NEC[ICD9: 311] Diagnosis: GENERALIZED ANXIETY DISEASE[ICD9: 300.02] Diagnosis: HYPERLIPIDEMIA[ICD9: 272.4] [facility] CPT-4: 18617 03/13/2013 ([id number]) 21309 EST. PATIENT, LEVEL IV Diagnosis: HYPERLIPIDEMIA[ICD9: 272.4] Diagnosis: HYPOTHYROIDISM[ICD9: 244.9] Diagnosis: GENERALIZED ANXIETY DISEASE[ICD9: 300.02] Diagnosis: DEPRESSIVE DISORDER NEC[ICD9: 311] [facility] CPT- 4: 68583 10/04/2012 ([id number]) 71497 EST. PATIENT, LEVEL III Diagnosis: VICTOR HUGO (generalized anxiety disorder)[ICD9: 300.02] Diagnosis: Chronic depression[ICD9: 311] [facility] CPT-4: 07824 08/22/2011 91745 EST. PATIENT, LEVEL IV Diagnosis: CHEST PAIN NEC[ICD9: 786.59] Diagnosis: HYPERLIPIDEMIA[ICD9: 272.4] Diagnosis: POSTSURGICAL HYPOTHYROIDISM[ICD9: 244.0] Elina Alvarado MD, [facility] CPT-4: 75080 06/17/2011 Plan of Care Planned Activity Notes Codes Status Date Visit Plan: Laceration due to fall -ER follow up -RX for bactroban ointment provided and instructed on use -return in 1 week for suture removal - call with any concerns or s/s of infection. Patient verbalized understanding of plan. 12/28/2018 Appointment: Suma Choi WPtel: [address] [place] [address] (15 min) Moderate 12/28/2018 Patient Education: Patient Medication Summary Completed 12/28/2018 [phone] [place] [address] Patient has been informed. Referral info faxed. Completed 12/24/2018 Visit Plan: Tick Bite - pt given script for treatment of infected tick bite, call for symptoms of worsening infection or nonhealing. 12/04/2018 Appointment: Suma Choi WPtel: [address] [place], [place] [phone] (30 min) Complex 12/04/2018 Patient Education: Patient [...] care surrogate. 11/28/2018 Appointment: Gina Kern WPtel: [facility] - Annual Wellness Visit 11/28/2018 Patient Education: Patient Medication Summary Completed 11/28/2018 Care Plan: Referral Order SNOMED-CT : [id number] Pending 11/28/2018 Visit Plan: Bronchitis - acute case of bronchitis identified. Pt has been given antibiotics, breathing treatments as appropriate, and pt has been instructed to call if symptoms are not improved, or if symptoms acutely worsen. 10/08/2018 Appointment: Suma Choi WPtel: [facility] [place] [address] (30 min) Complex 10/08/2018 Patient Education: Patient Medication Summary Completed 10/08/2018 Visit Plan: Sinusitis - Pt has acute infection - pain in face, maxillary region, Pt informed to use decongestant, RX given to patient, sinus rinses also recommended. Call if symptoms do not show improvement. 09/11/2018 Appointment: Suma Choi WPtel: [phone] (15 min) Moderate 09/11/2018 Patient Education: Patient Medication Summary Completed 09/11/2018 Visit Plan: Right hand pain - ongoing - will send for x-ray - The pt is to use prn antiinflammatories to manage acute pain. The patient is to call the office if the pain is worsening or does not improve. 07/12/2018 Appointment: Gina Kern WPtel: [address] [place], [place] [phone] (15 min) Moderate 07/12/2018 Patient Education: Patient Medication Summary Completed 07/12/2018 Care Plan: X-RAY EXAM OF HAND LOINC : 11642-9 Pending 07/12/2018 Visit Plan: Dysuria- UA negative -symptoms resolved -instructed patient to continue with adequate fluid intake and call if symptoms return. Patient verbalized understanding of plan. 05/07/2018 Appointment: Suma Choi WPtel: [address] [place], [place] [phone] (15 min) Moderate 05/07/2018 Patient Education: Patient Medication Summary Completed 05/07/2018 Appointment: Injection 04/24/2018 Patient Education: Patient Medication Summary Completed 04/24/2018 Referral: Peter Rubio [address] Referral Completed 03/22/2018 Visit Plan: Allergies [...] testing 02/21/2018 Appointment: Gina Kern WPtel: [facility] [place] (15 min) Moderate 02/21/2018 Patient Education: Patient Medication Summary Completed 02/21/2018 Care Plan: Referral Order SNOMED-CT : [id number] Pending 02/21/2018 Appointment: Elina Alvarado WPtel: [facility] (15 min) Moderate 12/14/2017 Visit [...] Completed 11/28/2017 Appointment: [facility]ern [facility]Ptel[facility] [phone] [facility] [facility] - Annual Wellness Visit 11/21/2017 Visit [...] spray. 08/29/2017 Appointment: [facility]ern [facility]Ptel: [phone] [facility] [address] [facility] (15 min) Moderate 08/29/2017 Patient [...] counseling. 06/13/2017 Appointment: Elina Alvarado WPtel: [phone] [facility] (15 min) Moderate 06/13/2017 Patient Education: Patient Medication Summary Completed 06/13/2017 Appointment: Injection 06/07/2017 Patient Education: Patient Medication Summary Completed 06/07/2017 Visit Plan: Pelvic pain-UA negative-pap done today in the office- will start patient on flagyl for bacterial vaginosis-instructed patient to call if symptoms do not resolve or if any worse. Patient verbalized understanding of plan. 02/16/2017 Appointment: Suma Choi WPtel: [phone] [phone] [place] (30 min) Complex 02/16/2017 Patient [...] medications. 02/06/2017 Appointment: Elina Alvarado WPtel: [phone] [facility] [place] (15 min) Moderate 02/06/2017 Patient Education: [...] surrogate. 11/17/2016 Appointment: [facility]ern [facility]Ptel: [phone] [facility] [facility] - Annual Wellness Visit 11/17/2016 [...] medications. 10/12/2016 Appointment: [phone] (15 min) Moderate 10/12/2016 Patient Education: Patient [...] J06.9 09/05/2016 Appointment: Sum[facility] Choi [facility]Ptel: [phone] [facility] [phone] (10 min) Simple 09/05/2016 Patient Education: Patient [...] lexapro 06/21/2016 Appointment: Elina Alvarado WPtel: [phone] [facility] (15 min) Moderate 06/21/2016 Patient Education: Patient Medication Summary Completed 06/21/2016 Visit Plan: Depression - improved with lexapro - continue with current treatment and counseling. 05/24/2016 Appointment: Elina Alvarado WPtel: [phone] [facility] [place] (15 min) Moderate 05/24/2016 Patient Education: Patient Medication Summary Completed 05/24/2016 Visit Plan: Depression - improved on the Lexapro - stop ativan - start on xanax 05/10/2016 Appointment: Elina Alvarado WPtel: [phone] [facility] [place] (15 min) Moderate 05/10/2016 Patient Education: [...] Completed 05/03/2016 Appointment: Suma Choi WPtel: [phone] [phone] [place] (15 min) Moderate 02/26/2016 Visit [...] and to maintain independece in the home. Gaoqvozkzq-cvvnensaoedj-jrgcuv to wellbutrin Pneumonia 13 administered today in [...] and to maintain independece in the home. Cdyobocngl-kqglnefnaxlv-nlhhwq to wellbutrin Pneumonia 13 administered today in the office 11/13/2015 Appointment: [facility] - Annual Wellness Visit 11/13/2015 Patient Education: Patient Medication Summary Completed 11/13/2015 Patient Education: Obesity Completed 11/13/2015 Care Plan: [facility] 55548-4 Ordered 11/13/2015 Appointment: Lab Draw 08/10/2015 Visit [...] current medications. 07/06/2015 Appointment: Elina Alvarado WPtel: [address] [place], [place] [id number] (30 min) Complex 07/06/2015 Patient Education: Patient [...] upon discharge. 12/10/2014 Appointment: Elina Alvarado WPtel: [facility] [place] [place] Surgical Clearance 12/10/2014 Patient Education: Patient Medication Summary Completed 12/10/2014 Visit Plan: Urinary incontinence and Pelvic discomfort - recommended pt to have evaluation by Dr. Bradnt - pt agreeable to referral. Pt is to call if abdominal pain does not improve. 10/16/2014 Appointment: Elina Alvarado WPtel: [facility] [place] [place] Follow up 10/16/2014 Patient Education: Patient Medication Summary Completed 10/16/2014 Care Plan: Referral Order SNOMED-CT : [id number] Ordered 10/16/2014 Patient Education: Patient Medication Summary Completed 10/10/2014 Visit Plan: Pelvic pain-history of mesh implant-recommend CT abd/pelvis to evaluate for any abnormality-refer to Dr Woods if pain does not improve Urinary incontinence-check UA with C&S if indicated 10/09/2014 Patient Education: Patient Medication Summary Completed 10/09/2014 Care Plan: CT ABD & PELV 1/> REGNS LOINC : 31396-3 Ordered 10/09/2014 Visit Plan: Hypothyroidism - pt with chronic hypothyroidism, continue with current medication, will monitor pt to signs or symptoms of lack of adequate supplementation. Pt is to continue with current dose of medication unless directed otherwise. Check labs at regular intervals wither q 3 months or q 6 months based on previous levels of control. 08/26/2014 Appointment: Elina Alvarado WPtel: [phone] [facility] Follow up 08/26/2014 Patient Education: Patient Medication [...] with screening. 04/23/2014 Appointment: Elina Alvarado WPtel: [address] [place], [place] [phone] Sick 04/23/2014 Patient Education: Patient Medication Summary Completed 04/23/2014 Care Plan: Referral Order SNOMED-CT : [id number] Ordered 04/23/2014 Appointment: Nurse Visit 04/15/2014 Patient Education: Patient Medication Summary Completed 04/15/2014 Appointment: Elina Alvarado WPtel: [facility] [place] Injection 02/11/2014 Patient Education: Patient Medication [...] treatment. 12/05/2013 Appointment: Elina Alvarado WPtel: [phone] [facility] Follow up 12/05/2013 Patient Education: Patient Medication [...] medications. 11/05/2013 Appointment: Elina Alvarado WPtel: [phone] [facility] Follow up 11/05/2013 Patient Education: Patient Medication [...] of control. 10/15/2013 Appointment: Elina Alvarado WPtel: [phone] [facility] [facility] 10/15/2013 Patient Education: Patient Medication [...] surrogate. 09/30/2013 Appointment: Elina Alvarado WPtel: [phone] [facility] [facility] - Initial Preventive Physical Exam 09/30/2013 Patient Education: Patient Medication Summary Completed 09/30/2013 Appointment: Elina Alvarado WPtel: [phone] [facility] [facility] - Initial Preventive Physical Exam [...] use. 03/13/2013 Appointment: Elina Alvarado WPtel: [phone] [facility] Follow up 03/13/2013 Patient Education: Patient Medication [...] Appointment: El[facility] Alvarado [facility]Ptel: [phone] [place] Follow up 10/04/2012 Patient Education: Patient Medication [...] attacks. 08/22/2011 Appointment: Elina Alvarado WPtel: [phone] [facility] [place] Other 08/22/2011 Patient Education: Patient Medication Summary [...] ULTRASOUND 06/17/2011 Appointment: Elina Alvarado WPtel: [phone] [facility] Other 06/17/2011 Patient Education: Patient Medication Summary Completed 06/17/2011 Referral: Raimundo Brandt WPtel: Referral Appointment Requested Referral: Greg Murcia HPtel:[phone] Referral Initiated Referral: Ramiro [address] Referral Initiated Referral: Dr. Phelps WPtel: Referral Initiated Instructions Comment . Laceration due to fall -ER follow up -RX for bactroban ointment provided and instructed on use -return in 1 week for suture removal -call with any concerns or s/s of infection. Patient verbalized understanding of plan. . Hypothyroidism [...] and to maintain independece in the home. Cfthhgtaeo-vyjnabldxcpu-mjfggs to wellbutrin Pneumonia 13 administered today in [...] and to maintain independece in the home. Agzgvrntou-tqgmhakvtapd-shxvtj to wellbutrin Pneumonia 13 administered today in [...] symptoms of worsening infection or nonhealing. . check labs appointment with dr ambrocio [...]
--- OUTSIDE RECORDS SUMMARY | 2019-01-01 16:41 | XMS REPORT | Continuity of Care Document ---
Author Organization Unknown Address Unknown Allergies Active Description Code Type Severity Reaction Onset Reported/Identified Relationship to Patient Clinical Status Yes No Known Drug Allergies [id number] Drug Allergy Unknown N/A 03/15/2010 Medications There [...] ALMAS Q Ot V74.8 02/13/2015 JESSY CORRIGAN PRIMARY CARE MD Ot 944.03 BURN NOS MULT FINGERS 02/13/2015 JESSY CORRIGAN PRIMARY CARE MD Ot 948.00 BDY BRN < 10%/3D DEG NOS 02/13/2015 JESSY CORRIGAN PRIMARY CARE MD Ot E000.8 OTHER EXTERNAL CAUSE STATUS 02/13/2015 JESSY CORRIGAN PRIMARY CARE MD Ot E015.2 ACTIVITIES INVOLVING COOKING AND BAKING 02/13/2015 JESSY CORRIGAN PRIMARY CARE MD Ot E849.0 ACCIDENT IN HOME 02/13/2015 JESSY CORRIGAN PRIMARY CARE MD Ot E924.8 HOT SUBSTANCE ACCID NEC 12/31/2015 [...] V72.63 PRE-PROCEDURAL LABORATORY EXAMINATION 03/20/2016 Ot V72.81 YCMA-QMA-SJKMSUPPF CARDIOVASCULAR 03/20/2016 Ot 272.4 HYPERLIPIDEMIA NEC/NOS 03/20/2016 [...] V72.63 PRE-PROCEDURAL LABORATORY EXAMINATION 03/20/2016 Ot V72.81 KJWN-FWU-FHBXOEDEI CARDIOVASCULAR 03/20/2016 Ot 272.4 HYPERLIPIDEMIA NEC/NOS 03/20/2016 [...] Ot 625.9 FEM GENITAL SYMPTOMS NOS 03/20/2016 EMNA DPM, ALMAS Q Ot 733.92 CHONDROMALACIA 03/20/2016 [...] V72.63 PRE-PROCEDURAL LABORATORY EXAMINATION 03/29/2016 Ot V72.81 ZCOC-JDJ-ZDETWXYVX CARDIOVASCULAR 03/29/2016 Ot 272.4 HYPERLIPIDEMIA NEC/NOS 03/29/2016 [...] V72.63 PRE-PROCEDURAL LABORATORY EXAMINATION 12/06/2016 Ot V72.81 RXCA-VIG-ULGGCVDDA CARDIOVASCULAR 12/06/2016 Ot 272.4 HYPERLIPIDEMIA NEC/NOS 12/06/2016 [...] OTH SCREEN MAMMO-MALIGN NEOPLASM OF OZZY 12/13/2016 JULIAS ROY, CRISTHIAN Prabhakar Ot V82.81 SCREENING FOR [...] MAMMOGRAM FOR MALIGNANT NE 11/30/2017 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 Ot Z12.31 ENCNTR SCREEN MAMMOGRAM FOR MALIGNANT NE 12/20/2017 ZACARIAS MAGANA 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 Ot Z12.31 ENCNTR SCREEN MAMMOGRAM FOR MALIGNANT [...] MAMMOGRAM FOR MALIGNANT NE 07/16/2018 BJORN NICOLAS PRIMARY CARE MD Ot M19.041 PRIMARY OSTEOARTHRITIS, RIGHT HAND 07/19/2018 BJORN NICOLAS PRIMARY CARE MD Ot M19.041 PRIMARY OSTEOARTHRITIS, RIGHT HAND 08/04/2018 BJORN NICOLAS PRIMARY CARE MD Ot M19.041 PRIMARY OSTEOARTHRITIS, RIGHT HAND 08/22/2018 BJORN NICOLAS PRIMARY CARE MD Ot M19.041 PRIMARY OSTEOARTHRITIS, RIGHT HAND 10/19/2018 [...] MAMMOGRAM FOR MALIGNANT NE 10/19/2018 BJORN NICOLAS PRIMARY CARE MD Ot M19.041 PRIMARY OSTEOARTHRITIS, RIGHT HAND 10/25/2018 [...] MAMMOGRAM FOR MALIGNANT NE 10/25/2018 BJORN NICOLAS PRIMARY CARE MD Ot M19.041 PRIMARY OSTEOARTHRITIS, RIGHT HAND 12/26/2018 [...] Status Pt. Type Provider Facility Loc./Unit Complaint [id number] 12/27/2018 08:48:00 12/27/2018 11:21:00 DIS Emergency JESSY CORRIGAN APRN [facility] ER FACE INJ [id number] 11/28/2018 11:39:00 11/28/2018 23:59:59 CLS Preadmit BJORN NICOLAS APRN [facility] RAD SCREENING [id number] 07/13/2018 09:19:00 07/13/2018 23:59:59 CLS Outpatient BJORN NICOLAS APRN [facility] RAD R HAND PAIN [id number] 11/29/2017 07:45:00 11/29/2017 23:59:59 CLS Outpatient ZACARIAS MAGANA [facility] RAD SCREENING [id number] 03/20/2016 08:21:00 03/20/2016 08:58:00 DIS Emergency CHARLENE ROY, DAVID Najera [facility] ER WASP STINGS, ITCHING [id number] 02/13/2015 11:49:00 02/13/2015 12:30:00 DIS Emergency JESSY CORRIGAN APRN [facility] ER RT HAND BURN [id number] 12/15/2014 06:06:00 12/15/2014 13:05:00 DIS Outpatient MENA DPM, ALMSA Q [facility] HAMMERTOE [id number] 12/09/2014 07:54:00 12/09/2014 23:59:59 CLS Outpatient MENA DPM, ALMAS Q [facility] PREOP HAMMERTOE [id number] 06/09/2014 06:50:00 06/09/2014 09:40:00 DIS Outpatient GLENDY SON MD [facility] RECTAL BLEEDING [id number] 06/04/2014 07:57:00 06/04/2014 23:59:59 CLS Outpatient GLENDY SON MD [facility] PREOP RECTAL BLEEDING [id number] 10/31/2013 11:03:00 10/31/2013 12:57:00 DIS Emergency WANG RYAN MD [facility] ER CHEST PAIN/SOA [id number] 10/10/2013 09:46:00 10/10/2013 23:59:59 CLS Outpatient CRISTHIAN EGAN MD [facility] RAD SCREENING,OSTEOPOROSIS [id number] 01/15/2019 11:40:00 PEN Preadmit MANDY TREVIÑO DO [facility] ENDO FAMILY HX COLON CA/HX POLYPS [id number] 12/30/2015 10:22:00 Document Registration [id number] 02/13/2015 11:49:00 Document Registration [id number] 10/13/2014 09:59:00 Document Registration [id number] 12/25/2012 00:00:00 Document Registration [id number] 06/20/2012 09:26:00 Document Registration [id number] 12/15/2011 09:30:00 Document Registration [id number] 08/05/2011 08:03:00 Document Registration [id number] 06/27/2011 10:26:00 Document Registration [id number] 06/23/2011 05:39:00 Document Registration [id number] 06/22/2011 09:16:00 Document Registration [id number] 06/22/2011 09:05:00 Document Registration [id number] 06/20/2011 07:16:00 Document Registration [id number] 06/08/2011 09:18:00 Document Registration [id number] 05/26/2011 09:08:00 Document Registration [id number] 04/21/2011 09:31:00 Document Registration [id number] 03/15/2010 05:39:00 Document Registration [id number] 03/10/2010 11:32:00 Document Registration
== END 2019-01-01 13:55 | disposition home or self-care (01) ==
LOC: EDUNIT# 13:36 → ER 13:37
DX: S01.21XD Laceration without foreign body of nose, subsequent encounter (principal); X58.XXXD Exposure to other specified factors, subsequent encounter

== ENCOUNTER 2019-01-14 09:00 | Outpatient (CLI) | payer MEDICARE, BC ==
[~2019-01-14] VITALS: Ht 167.6 cm; Wt 77.6 kg
[2019-01-14] MEDS ORDERED: LEVO100T PO (09:32)
[2019-01-14] MEDS ORDERED: ALPR0.5T7 PO (09:32)
[2019-01-14] MEDS ORDERED: LEVO112T55 PO (09:32)
[2019-01-14] MEDS ORDERED: ATOR10TA66 PO (09:32)
[2019-01-14] MEDS ORDERED: ESCI20TA PO (09:32)
[2019-01-14] MEDS ORDERED: CHOL100045 PO (09:34)
== END 2019-01-14 10:45 | disposition home or self-care (01) ==
LOC: PREOP 09:00
PROVIDERS: ATTEND Surgery
DX: Z01.818 Encounter for other preprocedural examination (principal)

== ENCOUNTER 2019-01-15 12:21 | Day surgery (SDC) | payer MEDICARE, BC ==
[~2019-01-15] VITALS: Ht 167.6 cm; Wt 77.6 kg
[2019-01-15 12:20] VITALS: BP 132/76
[~2019-01-15 12:21] MED LIST changes: +ALPR0.5T7 PO; +ATOR10TA66 PO; +CHOL100045 PO; +ESCI20TA PO; +LACTATED RINGERS 1,000 ML IV ONE; +LEVO100T PO; +LEVO112T55 PO
--- OUTSIDE RECORDS SUMMARY | 2019-01-15 12:29 | XMS REPORT | CCD ---
Author Author [facility]ina [facility] Organization [facility] Address [address] [place] [address] Phone Care Team Providers Care Hop Grower Name Role Phone PP Unavailable CCM Unavailable Summary Purpose Interface Exchange Insurance Providers Payer name Policy type / Coverage type Covered libertarian ID Effective Begin Date Effective End Date WPS Medicare Part B [id number] 2018 Unknown [facility] [id number] 2018 Unknown Family history Grandmother Diagnosis Age At [...] Description Effective Dates Tobacco history SNOMED CT: 8258884 Former smoker quit 2 years ago, social smoker, 1 pack per month 200709/30/2013 Employment Unknown 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 Marital status Unknown 06/17/[address]: 298783 Currently drinks alcohol 2 beers/week 06/17/2011 Has [...] Codes Condition Status Onset Date Resolved Date Benign paroxysmal vertigo, bilateral ICD-9: 386.11 ICD-10: H81.13 Active 01/03/2019 Unknown Laceration without foreign body of other part [...] 02/16/2017 Unknown Pelvic and perineal pain ICD-9: BBP8514 ICD-10: R10.2 Active 02/16/2017 Unknown Hypothyroidism, unspecified [...] Problems Condition Codes Effective Dates Condition Status Benign paroxysmal vertigo, bilateral ICD-9: 386.11 ICD-10: H81.13 01/03/2019 Active Laceration without foreign body of other part [...] 02/16/2017 Active Pelvic and perineal pain ICD-9: QNF8986 ICD-10: R10.2 02/16/2017 Active Hypothyroidism, unspecified ICD-9: [...] Instructions mupirocin 2 % topical ointment RxNorm: 380194 1 Application TOP BID 12/28/2018 01/03/2019 Inactive doxycycline hyclate 100 mg tablet RxNorm: 4187635 1 Tablet(s) PO BID 12/04/2018 12/13/2018 Inactive Zithromax Z-Que 250 mg tablet RxNorm: 878184 1 Tablet(s) PO UD 10/08/2018 10/12/2018 Inactive Kenalog 40 mg/mL suspension for injection RxNorm: 5904642 Milliliter(s) Inj 10/08/2018 10/08/2018 Inactive Xanax 0.5 mg tablet RxNorm: 252515 1 Tablet(s) PO QID as needed anxiety 09/24/2018 11/21/2018 Inactive Kenalog 40 mg/mL suspension for injection RxNorm: 2933377 1 Milliliter(s) Inj 09/11/2018 09/11/2018 Inactive Augmentin 875 mg-125 mg tablet RxNorm: 542485 1 Tablet(s) PO BID 09/11/2018 09/17/2018 Inactive naproxen 500 mg tablet RxNorm: 211099 1 Tablet(s) PO BID 07/12/2018 07/16/2018 Inactive Synthroid 112 mcg tablet RxNorm: 726384 TAKE ONE TABLET BY MOUTH DAILY 07/02/2018 12/28/2018 Inactive Lipitor 10 mg tablet RxNorm: 590583 TAKE ONE TABLET BY MOUTH EVERY DAY 06/06/2018 05/31/2019 Active Lexapro 20 mg tablet RxNorm: 805232 TAKE ONE TABLET BY MOUTH DAILY 05/08/2018 12/03/2018 Inactive Synthroid 100 mcg tablet RxNorm: 667529 TAKE ONE TABLET BY MOUTH EVERY OTHER DAY 04/10/2018 10/06/2018 Inactive Synthroid 100 mcg tablet RxNorm: 263794 1 Tablet(s) PO every other day 12/11/2017 04/09/2018 Inactive QOD -alternate with 112mcg DISPENSE BRAND NAME Synthroid 112 mcg tablet RxNorm: 374190 1 Tablet(s) every other day 11/28/2017 03/27/2018 Inactive QOD alternate with 100mcg Synthroid 100 mcg tablet RxNorm: 582451 1 Tablet(s) PO every other day 11/28/2017 12/10/2017 Inactive QOD -alternate with 112mcg DISPENSE BRAND NAME Synthroid 100 mcg tablet RxNorm: 571516 1 Tablet(s) PO every other day 11/28/2017 11/27/2017 Inactive QOD -alternate with 112mcg Xanax 0.5 mg tablet RxNorm: 046676 1 Tablet(s) PO QID as needed anxiety 11/14/2017 01/11/2018 Inactive Lexapro 20 mg tablet RxNorm: 306604 TAKE ONE TABLET BY MOUTH DAILY 11/13/2017 05/07/2018 Inactive Xanax 0.5 mg tablet RxNorm: 119924 1 Tablet(s) PO QID as needed anxiety 09/11/2017 11/08/2017 Inactive Tamiflu 75 mg capsule RxNorm: 052181 1 Capsule(s) PO BID 08/29/2017 09/02/2017 Inactive Synthroid 112 mcg tablet RxNorm: 216647 1 Tablet(s) daily 08/14/2017 11/27/2017 Inactive fyi - medication changed, refill x 6 - #30 pills Synthroid 112 mcg tablet RxNorm: 567225 1 Tablet(s) daily 06/13/2017 08/13/2017 Inactive fyi - medication changed, refill x 6 - #30 pills Lexapro 20 mg tablet RxNorm: 425743 TAKE ONE TABLET BY MOUTH DAILY 06/09/2017 11/05/2017 Inactive Synthroid 112 mcg tablet RxNorm: 135732 TAKE 1 TABLET BY MOUTH DAILY EXCEPT TAKE 1/2 TABLET ON MONDAY, MONDAY, AND Monday05/22/2017 06/12/2017 Inactive Lipitor 10 mg tablet RxNorm: 242852 TAKE ONE TABLET BY MOUTH EVERY DAY 03/08/2017 05/31/2018 Inactive Flagyl 500 mg tablet RxNorm: 107517 1 Tablet(s) PO TID 02/16/2017 02/22/2017 Inactive Xanax 0.5 mg tablet RxNorm: 991952 1 Tablet(s) PO QID as needed anxiety 12/23/2016 03/21/2017 Inactive Synthroid 112 mcg tablet RxNorm: 545972 TAKE 1 TABLET BY MOUTH DAILY EXCEPT FOR TAKE 1/2 TABLET ON MONDAY, MONDAY, AND Monday12/23/2016 04/13/2017 Inactive Lexapro 20 mg tablet RxNorm: 253139 TAKE ONE TABLET BY MOUTH DAILY 11/29/2016 05/27/2017 Inactive Zithromax Z-Que 250 mg tablet RxNorm: 080374 1 Tablet(s) PO UD 09/05/2016 09/09/2016 Inactive zpack Kenalog 40 mg/mL suspension for injection RxNorm: 0260220 1 Milliliter(s) Inj 09/05/2016 09/05/2016 Inactive Lipitor 10 mg tablet RxNorm: 440539 TAKE ONE TABLET BY MOUTH EVERY DAY 08/30/2016 02/25/2017 Inactive Ativan 1 mg tablet RxNorm: 291496 1 Tablet(s) PO Q6 PRN as needed TAKE ONE TABLET BY MOUTH THREE TIMES A DAY OR EVERY 6 HOURS NEEDED FOR ANXIETY 08/30/2016 12/22/2016 Inactive Synthroid 112 mcg tablet RxNorm: 737370 1 Tablet(s) PO daily except one-half tab on /Mon08/23/2016 12/12/2016 Inactive will refill when needed Lexapro 20 mg tablet RxNorm: 934664 TAKE ONE TABLET BY MOUTH DAILY 08/02/2016 11/28/2016 Inactive Synthroid 112 mcg tablet RxNorm: 630923 1 Tablet(s) PO daily except 1/2 tab wed and sat 05/25/2016 08/22/2016 Inactive will refill when needed Xanax 0.5 mg tablet RxNorm: 498730 1 Tablet(s) PO QID as needed anxiety 05/10/2016 08/29/2016 Inactive Lexapro 20 mg tablet RxNorm: 556630 1 Tablet(s) PO daily 05/03/2016 07/31/2016 Inactive 1/2 tab x 1 week then increase to a full pill daily buspirone 5 mg tablet RxNorm: 666351 TAKE ONE-HALF TABLET BY MOUTH TWICE A DAY 03/15/2016 05/02/2016 Inactive Synthroid 112 mcg tablet RxNorm: 464837 1 Tablet(s) PO daily 02/25/2016 05/24/2016 Inactive Ativan 1 mg tablet RxNorm: 164657 Tablet(s) TAKE ONE TABLET BY MOUTH THREE TIMES A DAY OR EVERY 6 HOURS NEEDED FOR ANXIETY 02/04/2016 05/08/2016 Inactive Synthroid 125 mcg tablet RxNorm: 129833 TAKE ONE TABLET BY MOUTH TWICE WEEKLY 01/11/2016 02/24/2016 Inactive Synthroid 112 mcg tablet RxNorm: 902943 TAKE ONE TABLET BY MOUTH FIVE DAYS A WEEK 01/11/2016 02/24/2016 Inactive Wellbutrin 75 mg tablet RxNorm: 990562 TAKE ONE TABLET BY MOUTH TWICE A DAY 01/11/2016 05/02/2016 Inactive Ativan 1 mg tablet RxNorm: 448572 TAKE ONE TABLET BY MOUTH THREE TIMES A DAY OR EVERY 6 HOURS NEEDED 12/03/2015 12/27/2015 Inactive Lipitor 10 mg tablet RxNorm: 721670 TAKE ONE TABLET BY MOUTH EVERY DAY 12/03/2015 08/28/2016 Inactive Ativan 1 mg tablet RxNorm: 282000 Tablet(s) TAKE ONE TABLET BY MOUTH THREE TIMES A DAY AND TAKE ONE TABLET BY MOUTH EVERY 6 HOURS NEEDED FOR ANXIETY 12/03/2015 12/02/2015 Inactive (Response to an electronic controlled substance refill request - [id number]) Wellbutrin 75 mg tablet RxNorm: 312851 1 Tablet(s) PO BID 11/13/2015 01/10/2016 Inactive Ativan 1 mg tablet RxNorm: 839162 Tablet(s) TAKE ONE TABLET BY MOUTH THREE TIMES A DAY AND TAKE ONE TABLET BY MOUTH EVERY 6 HOURS NEEDED FOR ANXIETY 09/23/2015 10/30/2015 Inactive (Response to an electronic controlled substance refill request - RxReferenceNumber: [id number]) buspirone 5 mg tablet RxNorm: 271442 TAKE ONE-HALF TABLET BY MOUTH TWICE A DAY 08/18/2015 03/01/2016 Inactive ceftriaxone 500 mg solution for injection RxNorm: 2513141 Inj 07/23/2015 07/23/2015 Inactive Zithromax Z-Que 250 mg tablet RxNorm: 398328 1 Tablet(s) PO UD 07/23/2015 07/27/2015 Inactive ZPACK buspirone 5 mg tablet RxNorm: 652713 1 Tablet(s) PO daily 07/06/2015 11/27/2018 Inactive buspirone 5 mg tablet RxNorm: 526704 1/2 Tablet(s) PO BID 05/26/2015 07/05/2015 Inactive Lipitor 10 mg tablet RxNorm: 141348 TAKE ONE TABLET BY MOUTH EVERY DAY 04/23/2015 10/19/2015 Inactive Ativan 1 mg tablet RxNorm: 190406 Tablet(s) TAKE ONE TABLET BY MOUTH THREE TIMES A DAY AND TAKE ONE TABLET BY MOUTH EVERY 6 HOURS NEEDED FOR ANXIETY 02/23/2015 04/01/2015 Inactive (Response to an electronic controlled substance refill request - RxReferenceNumber: [id number]) Synthroid 125 mcg tablet RxNorm: 142215 1 Tablet(s) PO UD twice weekly 12/10/2014 06/07/2015 Inactive Synthroid 112 mcg tablet RxNorm: 872387 1 Tablet(s) PO UD TAKE ONE TABLET BY MOUTH 5 days a week 12/10/2014 12/04/2015 Inactive Lexapro 20 mg tablet RxNorm: 139768 1 Tablet(s) PO daily 11/26/2014 11/12/2015 Inactive Lipitor 10 mg tablet RxNorm: 198848 TAKE ONE TABLET BY MOUTH EVERY DAY 10/21/2014 04/18/2015 Inactive amoxicillin 500 mg capsule RxNorm: 678831 1 Capsule(s) PO TID 10/15/2014 10/21/2014 Inactive take probiotic BID x 7 days during abt period amoxicillin 500 mg capsule RxNorm: 893322 1 Capsule(s) PO TID 10/15/2014 10/14/2014 Inactive take probiotic BID x 7 days during abt period Ativan 1 mg tablet RxNorm: 119224 TAKE ONE TABLET BY MOUTH THREE TIMES A DAY AND TAKE ONE TABLET BY MOUTH EVERY 6 HOURS NEEDED FOR ANXIETY 08/21/2014 09/28/2014 Inactive (Response to an electronic controlled substance refill request - RxReferenceNumber: [id number]) Ativan 1 mg tablet RxNorm: 750276 1 Tablet(s) PO tid and Q6 PRN as needed 08/18/2014 08/21/2014 Inactive doxycycline hyclate 100 mg tablet RxNorm: 593137 1 Tablet(s) PO BID 04/23/2014 05/25/2015 Inactive prednisone 10 mg tablets in a dose pack RxNorm: 477715 1 Tablet(s) PO 02/14/2014 05/25/2015 Inactive Kenalog 40 mg/mL suspension for injection RxNorm: 5637028 1 Milliliter(s) Inj 02/11/2014 02/11/2014 Inactive Keflex 500 mg capsule RxNorm: 613952 1 Capsule(s) PO TID 01/21/2014 01/27/2014 Inactive Kenalog 40 mg/mL suspension for injection RxNorm: 8507280 Milliliter(s) Inj 01/21/2014 01/21/2014 Inactive Synthroid 112 mcg tablet RxNorm: 337296 1 Tablet(s) PO daily TAKE ONE TABLET BY MOUTH EVERY DAY 12/05/2013 11/29/2014 Inactive Ativan 1 mg tablet RxNorm: 618799 1 Tablet(s) PO Q6 PRN 11/05/2013 02/02/2014 Inactive Lexapro 20 mg tablet RxNorm: 422263 1 Tablet(s) PO daily 11/05/2013 11/04/2013 Inactive Lexapro 20 mg tablet RxNorm: 847083 1 Tablet(s) PO daily 11/05/2013 10/30/2014 Inactive Lipitor 10 mg tablet RxNorm: 686815 1 Tablet(s) PO QPM TAKE ONE TABLET BY MOUTH EVERY DAY 09/30/2013 10/20/2014 Inactive Lexapro 20 mg tablet RxNorm: 827639 1 Tablet(s) PO daily 09/30/2013 11/04/2013 Inactive Synthroid 125 mcg tablet RxNorm: 117427 1 Tablet(s) PO daily 09/10/2013 12/04/2013 Inactive Synthroid 100 mcg tablet RxNorm: 281194 1 Tablet(s) PO daily TAKE ONE TABLET BY MOUTH EVERY DAY 09/06/2013 09/09/2013 Inactive Lipitor 10 mg tablet RxNorm: 130787 Tablet(s) PO TAKE ONE TABLET BY MOUTH EVERY DAY 08/15/2013 09/29/2013 Inactive Synthroid 100 mcg tablet RxNorm: 759807 1 Tablet(s) PO daily TAKE ONE TABLET BY MOUTH EVERY DAY 04/26/2013 09/05/2013 Inactive Ativan 1 mg tablet RxNorm: 196973 1 Tablet(s) PO Q6 PRN 03/13/2013 No Stop Date Active Synthroid 100 mcg tablet RxNorm: 214200 1 Tablet(s) PO daily TAKE ONE TABLET BY MOUTH EVERY DAY 03/13/2013 04/25/2013 Inactive Lexapro 20 mg tablet RxNorm: 289653 1/2 Tablet(s) PO BID 03/13/2013 09/29/2013 Inactive Synthroid 112 mcg tablet RxNorm: 131901 Tablet(s) PO TAKE ONE TABLET BY MOUTH EVERY DAY 01/08/2013 03/12/2013 Inactive Lexapro 20 mg tablet RxNorm: 230718 Tablet(s) PO TAKE 1/2 TABLET EVERY MORNING AND TAKE ONE TABLET BY MOUTH AT BEDTIME 10/18/2012 03/12/2013 Inactive Lipitor 20 mg tablet RxNorm: 520670 1/2 Tablet(s) PO daily 08/20/2012 02/04/2013 Inactive Lipitor 10 mg tablet RxNorm: 081165 1 Tablet(s) PO daily 05/23/2012 08/19/2012 Inactive Synthroid 112 mcg tablet RxNorm: 742354 1 Tablet(s) PO daily 12/16/2011 01/07/2013 Inactive Synthroid 112 mcg Tab RxNorm: 223140 1 Tablet(s) PO daily 12/16/2011 12/15/2011 Inactive Lipitor 10 mg tablet RxNorm: 425695 1 Tablet(s) PO daily 12/15/2011 05/22/2012 Inactive Synthroid 112 mcg Tab RxNorm: 080888 1 Tablet(s) PO every other day 11/09/2011 12/15/2011 Inactive every other day Synthroid 112 mcg Tab RxNorm: 952585 1 Tablet(s) PO every other day 10/21/2011 11/08/2011 Inactive every other day Synthroid 125 mcg Tab RxNorm: 321544 1 Tablet(s) PO every other day 10/21/2011 12/16/2011 Inactive every other day Lexapro 20 mg tablet RxNorm: 514485 1.5 Tablet(s) PO daily 1/2 pill in AM and 1 pill at bedtime 09/22/2011 04/18/2012 Inactive 1/2 q am 1 q hs diazepam 5 mg Tab RxNorm: 636430 1 Tablet(s) PO daily 1 tab bid prn 09/21/2011 05/17/2012 Inactive Lexapro 20 mg Tab RxNorm: 414785 1.5 Tablet(s) PO daily 1/2 pill in AM and 1 pill at bedtime 08/22/2011 09/21/2011 Inactive diazepam 5 mg Tab RxNorm: 475674 1 Tablet(s) PO daily 1 tab bid prn 06/20/2011 09/20/2011 Inactive diazepam 5 mg Tab RxNorm: 045254 1 Tablet(s) PO daily 1 tab bid prn 06/20/2011 06/19/2011 Inactive diazepam 5 mg Tab RxNorm: 652712 1 Tablet(s) PO daily 1 tab bid prn 06/17/2011 06/19/2011 Inactive Lipitor 10 mg Tab RxNorm: 559169 1 Tablet(s) PO daily 05/31/2011 11/26/2011 Inactive diazepam 5 mg Tab RxNorm: 704991 1 Tablet(s) PO BID 1 tab bid prn 04/21/2011 05/20/2011 Inactive Calcium 600 + D(3) Oral RxNorm: Oral No Start Date Active Menest 0.625 mg Tab RxNorm: 369017 1 Tablet(s) PO daily No Start Date 06/16/2011 Inactive Synthroid 125 mcg tablet RxNorm: 548841 Tablet(s) PO No Start Date 09/09/2013 Inactive Ativan 1 mg tablet RxNorm: 144472 1 Tablet(s) PO Q6 PRN No Start Date 08/21/2011 Inactive aspirin 81 mg Tab, Delayed Release RxNorm: 9225942 1 Tablet(s) PO daily No Start Date 09/29/2013 Inactive Lexapro 10 mg Tab RxNorm: 455583 1 Tablet(s) PO daily No Start Date 08/22/2011 Inactive prednisone 10 mg tablets in a dose pack RxNorm: 773139 1 Tablet(s) PO No Start Date 02/13/2014 Inactive Synthroid 112 mcg Tab RxNorm: 875872 Tablet(s) PO tues/thurs/sat/sun No Start Date 10/20/2011 Inactive lorazepam 1 mg Tab RxNorm: 874301 Tablet(s) PO Q6 PRN No Start Date 11/04/2013 Inactive Lipitor 20 mg tablet RxNorm: 778090 1/2 Tablet(s) PO daily No Start Date 08/20/2012 Inactive Vitamin D2 oral RxNorm: oral No Start Date 09/29/2013 Inactive Synthroid 125 mcg Tab RxNorm: 911581 1 Tablet(s) PO No Start Date 10/20/2011 Inactive synthroid 112 mcg mon Medication Administered Medication Codes Instructions Start Date Status Kenalog 40 mg/mL suspension for injection RxNorm: 9734972 Milliliter 10/08/2018 No longer Active Kenalog 40 mg/mL suspension for injection RxNorm: 3064921 1Milliliter 09/11/2018 No longer Active Kenalog 40 mg/mL suspension for injection RxNorm: 6745049 1Milliliter 09/05/2016 No longer Active ceftriaxone 500 mg solution for injection RxNorm: 8578724 07/23/2015 No longer Active Kenalog 40 mg/mL suspension for injection RxNorm: 8289178 1Milliliter 02/11/2014 No longer Active Kenalog 40 mg/mL suspension for injection RxNorm: 7466871 Milliliter 01/21/2014 No longer Active Immunizations Vaccine Codes Date Status Influenza CVX: 141 04/24/2018 completed Influenza CVX: 141 06/07/2017 completed Pneumococcal (Adult) CVX: 133 11/13/2015 completed Influenza CVX: 141 04/15/2014 completed Pneumococcal (Adult) CVX: 33 04/15/2014 completed PPD Unknown 10/10/2013 completed Influenza CVX: 141 09/30/2013 completed Assessments Condition Codes Effective Dates Benign paroxysmal vertigo, bilateral ICD-10: H81.13 ICD-9: 386.11 01/03/2019 Laceration without foreign body of other part [...] Pelvic and perineal pain ICD-10: R10.2 ICD-9: RWH1411 02/16/2017 Acute vaginitis ICD-10: N76.0 ICD-9: 623.5 [...] Visit Reason For Visit Effective Dates Notes earache 01/03/2019 Hospital Follow Up 12/28/2018 arthropod bite 12/04/2018 [...] Ord30 C/HDL 3.0 Ratio 11/26/2018 Free T4 Ydm444 FREE T4 0.98 ng/dL 11/26/2018 Cbc With [...] 29.6 pg 11/26/2018 Cbc With Differential Ord2 Chaves% 7.7 % 11/26/2018 Cbc With Differential Ord2 [...] 1.41 K/ul 11/26/2018 Cbc With Differential Ord2 Chaves ABS# 0.5 K/ul 11/26/2018 Cbc With Differential Ord2 Eos ABS# 0.2 K/ul 11/26/2018 Cbc With Differential Ord2 Baso ABS# 0.1 K/ul 11/26/2018 Comp Metabolic Sag856 NA 140 mEq/L 11/26/2018 Comp Metabolic Ith777 K 4.4 mEq/L 11/26/2018 Comp Metabolic Cdh422 CL 104 mEq/L 11/26/2018 Comp Metabolic Ocz742 CO2 28.0 mEq/L 11/26/2018 Comp Metabolic Cle508 ANION GAP 12 11/26/2018 Comp Metabolic Dmj388 GLUCOSE 91 mg/dL 11/26/2018 Comp Metabolic Vdy012 Creat 0.9 mg/dL 11/26/2018 Comp Metabolic Ban877 eGFR 66 ml/min/1.73m2 11/26/2018 Comp Metabolic Thm457 BUN 15 mg/dL 11/26/2018 Comp Metabolic Ppn008 B/C Ratio 16.7 Ratio 11/26/2018 Comp Metabolic Ewp618 CALCIUM 9.3 mg/dL 11/26/2018 Comp Metabolic Eid825 ALK PHOS 81 U/L 11/26/2018 Comp Metabolic Hgw937 AST(SGOT) 14 U/L 11/26/2018 Comp Metabolic Bth507 ALT(SGPT) 12 U/L 11/26/2018 Comp Metabolic Gfx459 BILI T 0.7 mg/dL 11/26/2018 Comp Metabolic Npx953 ALBUMIN 4.1 g/dL 11/26/2018 Comp Metabolic Tkp874 TPRO 6.7 g/dL 11/26/2018 Comp Metabolic Wfd925 GLOB 2.6 g/dL 11/26/2018 Comp Metabolic Jrk332 A/G Ratio 1.5 Ratio 11/26/2018 Comp Metabolic Zpq851 Osmo 280 mOsmo 11/26/2018 Tsh Ord6 TSH [...] 29.7 pg 11/23/2017 Cbc With Differential Ord2 Chaves% 9.0 % 11/23/2017 Cbc With Differential Ord2 [...] 1.77 K/ul 11/23/2017 Cbc With Differential Ord2 Chaves ABS# 0.6 K/ul 11/23/2017 Cbc With Differential Ord2 Eos ABS# 0.2 K/ul 11/23/2017 Cbc With Differential Ord2 Baso ABS# 0.0 K/ul 11/23/2017 Tsh Ord6 TSH (3rd IS) 0.17 uIU/mL 11/23/2017 Free T4 Mgs867 FREE T4 1.10 ng/dL 11/23/2017 Comp Metabolic Tdp491 NA 142 mEq/L 11/23/2017 Comp Metabolic Rmv818 K 4.4 mEq/L 11/23/2017 Comp Metabolic Lmh377 CL 109 mEq/L 11/23/2017 Comp Metabolic Bxh867 CO2 28.0 mEq/L 11/23/2017 Comp Metabolic Apj063 ANION GAP 9 11/23/2017 Comp Metabolic Uoa044 GLUCOSE 106 mg/dL 11/23/2017 Comp Metabolic Qbd084 Creat 0.9 mg/dL 11/23/2017 Comp Metabolic Wmb365 eGFR 68 ml/min/1.73m2 11/23/2017 Comp Metabolic Bdm461 BUN 17 mg/dL 11/23/2017 Comp Metabolic Npw131 B/C Ratio 19.3 Ratio 11/23/2017 Comp Metabolic Cyt369 CALCIUM 9.0 mg/dL 11/23/2017 Comp Metabolic Mvv486 ALK PHOS 65 U/L 11/23/2017 Comp Metabolic Bzt774 AST(SGOT) 18 U/L 11/23/2017 Comp Metabolic Dae659 ALT(SGPT) 16 U/L 11/23/2017 Comp Metabolic Bfl544 BILI T 0.5 mg/dL 11/23/2017 Comp Metabolic Eto280 ALBUMIN 4.2 g/dL 11/23/2017 Comp Metabolic Tjp921 TPRO 6.5 g/dL 11/23/2017 Comp Metabolic Pya389 GLOB 2.3 g/dL 11/23/2017 Comp Metabolic Gnj192 A/G Ratio 1.8 Ratio 11/23/2017 Comp Metabolic Qri064 Osmo 285 mOsmo 11/23/2017 Lipid Ord30 CHOL [...] hTSH II 4.83 uIU/mL 06/07/2017 Comp Metabolic Xrr124 NA 141 mEq/L 06/07/2017 Comp Metabolic Tzq549 K 4.3 mEq/L 06/07/2017 Comp Metabolic Scx531 CL 106 mEq/L 06/07/2017 Comp Metabolic Sba291 CO2 26.0 mEq/L 06/07/2017 Comp Metabolic Rax202 ANION GAP 13 06/07/2017 Comp Metabolic Wfd831 GLUCOSE 93 mg/dL 06/07/2017 Comp Metabolic Lxg854 Creat 0.9 mg/dL 06/07/2017 Comp Metabolic Bwi507 eGFR 65 ml/min/1.73m2 06/07/[address] BUN 10 mg/dL 06/07/2017 Comp Metabolic Yan328 B/C Ratio 11.0 Ratio 06/07/2017 Comp Metabolic Dat749 CALCIUM 8.9 mg/dL 06/07/2017 Comp Metabolic Zvd618 ALK PHOS 69 U/L 06/07/2017 Comp Metabolic Ikj360 AST(SGOT) 18 U/L 06/07/2017 Comp Metabolic Jdy682 ALT(SGPT) 15 U/L 06/07/2017 Comp Metabolic Brp655 BILI T 0.5 mg/dL 06/07/2017 Comp Metabolic Pgf174 ALBUMIN 4.1 g/dL 06/07/2017 Comp Metabolic Bpr262 TPRO 6.5 g/dL 06/07/2017 Comp Metabolic Sge906 GLOB 2.4 g/dL 06/07/2017 Comp Metabolic Gkv748 A/G Ratio 1.7 Ratio 06/07/2017 Comp Metabolic Wrf677 Osmo 280 mOsmo 06/07/2017 Cbc With Differential [...] 30.7 pg 06/07/2017 Cbc With Differential Ord2 Chaves% 9.1 % 06/07/2017 Cbc With Differential Ord2 [...] 1.62 K/ul 06/07/2017 Cbc With Differential Ord2 Chaves ABS# 0.5 K/ul 06/07/2017 Cbc With Differential Ord2 Eos ABS# 0.2 K/ul 06/07/2017 Cbc With Differential Ord2 Baso ABS# 0.0 K/ul 06/07/2017 Free T4 Ols289 FREE T4 0.92 ng/dL 06/07/2017 Tsh Ord6 hTSH II 1.07 uIU/mL 11/17/2016 Free T4 Vyc126 FREE T4 1.02 ng/dL 11/17/2016 Lipid Ord30 CHOL 195 mg/dL 10/13/2016 Lipid Ord30 HDL 68.0 mg/dl 10/13/2016 Lipid Ord30 TRIG 69 mg/dL 10/13/2016 Lipid Ord30 LDL 113 mg/dL 10/13/2016 Lipid Ord30 C/HDL 2.9 Ratio 10/13/2016 Comp Metabolic Akw644 NA 138 mEq/L 10/13/2016 Comp Metabolic Wgr485 K 4.4 mEq/L 10/13/2016 Comp Metabolic Plr306 CL 102 mEq/L 10/13/2016 Comp Metabolic Ttm564 CO2 29.0 mEq/L 10/13/2016 Comp Metabolic Qmo925 ANION GAP 11 10/13/2016 Comp Metabolic Dfo840 GLUCOSE 85 mg/dL 10/13/2016 Comp Metabolic Cav250 Creat 1.0 mg/dL 10/13/2016 Comp Metabolic Ohg225 eGFR 59 ml/min/1.73m2 10/13/2016 Comp Metabolic Oar672 BUN 21 mg/dL 10/13/2016 Comp Metabolic Rib136 B/C Ratio 21.2 Ratio 10/13/2016 Comp Metabolic Sld013 CALCIUM 9.7 mg/dL 10/13/2016 Comp Metabolic Uoq709 ALK PHOS 70 U/L 10/13/2016 Comp Metabolic Hzi519 AST(SGOT) 17 U/L 10/13/2016 Comp Metabolic Dim311 ALT(SGPT) 14 U/L 10/13/2016 Comp Metabolic Muw793 BILI T 0.9 mg/dL 10/13/2016 Comp Metabolic Bfr260 ALBUMIN 4.4 g/dL 10/13/2016 Comp Metabolic Eeg041 TPRO 7.1 g/dL 10/13/2016 Comp Metabolic Eak198 GLOB 2.7 g/dL 10/13/2016 Comp Metabolic Gbk137 A/G Ratio 1.6 Ratio 10/13/2016 Comp Metabolic Cki042 Osmo 278 mOsmo 10/13/2016 Cbc With Differential [...] 29.7 pg 10/13/2016 Cbc With Differential Ord2 Chaves% 7.7 % 10/13/2016 Cbc With Differential Ord2 [...] 1.43 K/ul 10/13/2016 Cbc With Differential Ord2 Chaves ABS# 0.5 K/ul 10/13/2016 Cbc With Differential Ord2 Eos ABS# 0.1 K/ul 10/13/2016 Cbc With Differential Ord2 Baso ABS# 0.0 K/ul 10/13/2016 Free T4 Rdg638 FREE T4 1.31 ng/dL 08/17/2016 Tsh Ord6 hTSH II 0.64 uIU/mL 08/17/2016 Free T4 Xsr204 FREE T4 1.49 ng/dL 05/10/2016 Comp Metabolic Wnl835 NA 139 mEq/L 05/10/2016 Comp Metabolic Rsk318 K 4.5 mEq/L 05/10/2016 Comp Metabolic Ojj756 CL 104 mEq/L 05/10/2016 Comp Metabolic Tfh637 CO2 24.0 mEq/L 05/10/2016 Comp Metabolic Gad540 ANION GAP 16 05/10/2016 Comp Metabolic Ipe072 GLUCOSE 87 mg/dL 05/10/2016 Comp Metabolic Uox126 Creat 0.9 mg/dL 05/10/2016 Comp Metabolic Niz984 eGFR 71 ml/min/1.73m2 05/10/2016 Comp Metabolic Xtb743 BUN 12 mg/dL 05/10/2016 Comp Metabolic Hbf072 B/C Ratio 14.1 Ratio 05/10/2016 Comp Metabolic Cvd781 CALCIUM 9.6 mg/dL 05/10/2016 Comp Metabolic Ted156 ALK PHOS 89 U/L 05/10/2016 Comp Metabolic Czv223 AST(SGOT) 17 U/L 05/10/2016 Comp Metabolic Juf186 ALT(SGPT) 17 U/L 05/10/2016 Comp Metabolic Kuz542 BILI T 0.9 mg/dL 05/10/2016 Comp Metabolic Kxz364 ALBUMIN 4.2 g/dL 05/10/2016 Comp Metabolic Wkb291 TPRO 6.7 g/dL 05/10/2016 Comp Metabolic Flf901 GLOB 2.5 g/dL 05/10/2016 Comp Metabolic Sqh552 A/G Ratio 1.7 Ratio 05/10/2016 Comp Metabolic Suw658 Osmo 277 mOsmo 05/10/2016 Cbc With Differential [...] 29.1 pg 05/10/2016 Cbc With Differential Ord2 Chaves% 8.3 % 05/10/2016 Cbc With Differential Ord2 [...] 1.57 K/ul 05/10/2016 Cbc With Differential Ord2 Chaves ABS# 0.6 K/ul 05/10/2016 Cbc With Differential Ord2 Eos ABS# 0.2 K/ul 05/10/2016 Cbc With Differential Ord2 Baso ABS# 0.0 K/ul 05/10/2016 Tsh Ord6 hTSH II 0.03 uIU/mL 05/10/2016 Free T4 Zny595 FREE T4 1.67 ng/dL 02/18/2016 Tsh Ord6 hTSH II 0.06 uIU/mL 02/18/2016 Comp Metabolic Pil138 NA 138 mEq/L 02/18/2016 Comp Metabolic Yto509 K 4.5 mEq/L 02/18/2016 Comp Metabolic Ush773 CL 104 mEq/L 02/18/2016 Comp Metabolic Vjv295 CO2 26.0 mEq/L 02/18/2016 Comp Metabolic Sre494 ANION GAP 13 02/18/2016 Comp Metabolic Mcj780 GLUCOSE 88 mg/dL 02/18/2016 Comp Metabolic Uru222 Creat 0.9 mg/dL 02/18/2016 Comp Metabolic Ifg486 eGFR 69 ml/min/1.73m2 02/18/2016 Comp Metabolic Yil536 BUN 14 mg/dL 02/18/2016 Comp Metabolic Gpl887 B/C Ratio 16.1 Ratio 02/18/2016 Comp Metabolic Uai832 CALCIUM 9.4 mg/dL 02/18/2016 Comp Metabolic Wwj157 ALK PHOS 95 U/L 02/18/2016 Comp Metabolic Ety773 AST(SGOT) 19 U/L 02/18/2016 Comp Metabolic Kyk421 ALT(SGPT) 18 U/L 02/18/2016 Comp Metabolic Ttn418 BILI T 0.7 mg/dL 02/18/2016 Comp Metabolic Ljj537 ALBUMIN 4.4 g/dL 02/18/2016 Comp Metabolic Uoy280 TPRO 6.9 g/dL 02/18/2016 Comp Metabolic Cvs821 GLOB 2.5 g/dL 02/18/2016 Comp Metabolic Dcq453 A/G Ratio 1.7 Ratio 02/18/2016 Comp Metabolic Blv613 Osmo 276 mOsmo 02/18/2016 Lipid Ord30 CHOL [...] 28.9 pg 02/18/2016 Cbc With Differential Ord2 Chaves% 10.5 % 02/18/2016 Cbc With Differential Ord2 [...] 1.08 K/ul 02/18/2016 Cbc With Differential Ord2 Chaves ABS# 0.6 K/ul 02/18/2016 Cbc With Differential Ord2 Eos ABS# 0.0 K/ul 02/18/2016 Cbc With Differential Ord2 Baso ABS# 0.0 K/ul 02/18/2016 Comp Metabolic Qtw115 NA 136 mEq/L 06/08/2015 Comp Metabolic Jti147 K 3.9 mEq/L 06/08/2015 Comp Metabolic Cbf258 CL 103 mEq/L 06/08/2015 Comp Metabolic Tvt127 CO2 25.0 mEq/L 06/08/2015 Comp Metabolic Phy930 ANION GAP 12 06/08/2015 Comp Metabolic Ozd608 GLUCOSE 91 mg/dL 06/08/2015 Comp Metabolic Fce571 Creat 0.9 mg/dL 06/08/2015 Comp Metabolic Idm922 eGFR 68 ml/min/1.73m2 06/08/2015 Comp Metabolic Jnx737 BUN 10 mg/dL 06/08/2015 Comp Metabolic Lom037 B/C Ratio 11.4 Ratio 06/08/2015 Comp Metabolic Kjc667 CALCIUM 9.4 mg/dL 06/08/2015 Comp Metabolic Jgt047 ALK PHOS 88 U/L 06/08/2015 Comp Metabolic Loy118 AST(SGOT) 20 U/L 06/08/2015 Comp Metabolic Tod708 ALT(SGPT) 18 U/L 06/08/2015 Comp Metabolic Fdw298 BILI T 0.8 mg/dL 06/08/2015 Comp Metabolic Gqe250 ALBUMIN 4.4 g/dL 06/08/2015 Comp Metabolic Gfy870 TPRO 7.0 g/dL 06/08/2015 Comp Metabolic Ymk057 GLOB 2.6 g/dL 06/08/2015 Comp Metabolic Piw773 A/G Ratio 1.7 Ratio 06/08/2015 Comp Metabolic Jsh891 Osmo 271 mOsmo 06/08/2015 Tsh Ord6 hTSH [...] Ord2 RDW 14.4 % 06/08/2015 LYME EIA [id number] LYME EIA 0.24 04/25/2014 TULAREM AB [id number] TULAREM AB <1:20 04/24/2014 RMSF IFA [id number] IGG RMSF <1:16 04/24/2014 RMSF IFA [id number] IGM RMSF <1:10 04/24/2014 E CHAFF AB [id number] IGG E CHFF <1:16 04/24/2014 E CHAFF AB [id number] IGM E CHFF <1:10 04/24/2014 ICT OCCULT [id number] ICT OCCULT NEG 10/11/2013 Review of Systems System Result Effective Dates Constitutional No recent illness 01/03/2019 Constitutional No chills 01/03/2019 Constitutional No diaphoresis 01/03/2019 Constitutional No fever 01/03/2019 Constitutional No malaise 01/03/2019 Constitutional No weight loss 01/03/2019 Eyes No eye discharge 01/03/2019 Eyes No eye erythema 01/03/2019 Ears/Nose/Throat/Neck dizziness 01/03/2019 Ears/Nose/Throat/Neck facial swelling 01/03/2019 Ears/Nose/Throat/Neck headache 01/03/2019 Cardiovascular No chest pain/pressure 01/03/2019 Respiratory No cough 01/03/2019 Gastrointestinal No nausea 01/03/2019 Gastrointestinal No vomiting 01/03/2019 Dermatologic laceration 01/03/2019 Neurologic No alteration of consciousness 01/03/2019 Neurologic dizziness 01/03/2019 Constitutional No recent illness 12/28/2018 Constitutional No [...] 1994 Constitutional general appearance Overall: well developed 01/03/2019 None Full Exam - General 1994 Constitutional general appearance Overall: in no acute distress 01/03/2019 None Full Exam - General 1994 Constitutional general appearance Overall: well nourished 01/03/2019 None Full Exam - General 1994 Ears/Nose/Throat otoscopic exam Overall: external auditory canals clear 01/03/2019 None Full Exam - General 1994 Ears/Nose/Throat otoscopic exam Overall: tympanic membranes clear 01/03/2019 None Full Exam - General 1994 Ears/Nose/Throat oral cavity/pharynx/larynx Overall: oral mucosa clear 01/03/2019 None Full Exam - General 1994 Respiratory auscultation Overall: breath sounds clear bilaterally 01/03/2019 None Full Exam - General 1994 Respiratory respiratory effort/rhythm Overall: no retractions 01/03/2019 None Full Exam - General 1994 Respiratory respiratory effort/rhythm Overall: normal rate 01/03/2019 None Full Exam - General 1994 Cardiovascular auscultation of heart Overall: regular rate 01/03/2019 None Full Exam - General 1994 Cardiovascular auscultation of heart Overall: normal heart sounds 01/03/2019 None Full Exam - General 1994 Integument inspection of skin Location: face 01/03/2019 laceration right cheek with sutures x 6 d/i, abrasion right cheek -swelling right cheek and upper lip Full Exam - General 1994 Psychiatric orientation/consciousness Overall: oriented to person, place and time 01/03/2019 None Full Exam - General 1994 Neurologic cranial nerves Overall: crainial nerves 2 - 12 grossly intact 01/03/2019 None Full Exam - General 1994 Eyes pupils and irises Overall: pupils equal, round, reactive to light and accomodation 01/03/2019 nystagmus - slight worse towards left than to right Full Exam - General 1994 Constitutional general [...] 1994 Ears/Nose/Throat oral cavity/pharynx/larynx Overall: no masses 10/04/2012 [...] J3301 09/11/2018 URINALYSIS NONAUTO W/O SCOPE CPT-4: 22510 05/07/2018 ADMIN INFLUENZA VIRUS VAC CPT-4: G0008 04/24/2018 FLU VACC PRSV FREE INC ANTIG CPT-4: 40727 04/24/2018 PPPS, SUBSEQ VISIT CPT- 4: G0439 11/28/2017 ADMIN INFLUENZA VIRUS VAC CPT-4: G0008 06/07/2017 FLU VACC PRSV FREE INC ANTIG CPT-4: 79919 06/07/2017 PPPS, SUBSEQ VISIT CPT- 4: G0439 11/17/2016 TRIAMCINOLONE ACET INJ NOS CPT-4: J3301 09/05/2016 PPPS, SUBSEQ VISIT CPT- 4: G0439 11/13/2015 PNEUMOCOCCAL VACC 13 STEPHANIE IM Formatting Model/CDA Sections, Assigned to/Lila Colon SNOMED CT: 68955882 CPT-4: 63458Kkfsiny 11/13/2015 ADMIN PNEUMOCOCCAL VACCINE SNOMED CT: 12050826 CPT-4: G0009 11/13/2015 ROCEPHIN, PER 250 MG CPT- 4: J0696 07/23/2015 URINALYSIS NONAUTO W/O SCOPE CPT-4: 99856 10/10/2014 ROUTINE VENIPUNCTURE CPT- 4: 14473 04/23/2014 Pneumococcal Polysaccharide Vaccine, 23-Valent, Ad CPT-4: 39433 04/15/2014 ADMIN INFLUENZA VIRUS VAC CPT-4: G0008 04/15/2014 FLU VAC NO PRSV 4 STEPHANIE 3 YRS+ CPT-4: 56206 04/15/2014 ADMIN P[address]UMOCOCCAL VACCINE SNOMED CT: 79721203 CPT-4: G0009 04/15/2014 THER/PROPH/DIAG INJ SC/IM CPT-4: 56959 02/11/2014 TRIAMCINOLONE ACET INJ NOS CPT-4: J3301 02/11/2014 TRIAMCINOLONE ACET INJ NOS CPT-4: J3301 01/21/2014 INITIAL PREVENTIVE EXAM CPT-4: G0402 09/30/2013 PRESCRIP TRANSMIT VIA ERX SY CPT-4: G8553 03/13/2013 Vital Signs Date Vital 01/03/2019 Blood Pressure 1: 130/76 Code: 8480-6 BMI: 27.6 Code: 89906-8 Heart Rate 1: 83 bpm Height: 5'5" SpO2: 96% Weight: 166 lbs 12/28/2018 Blood Pressure 1: 110/62 Code: 8480-6 Heart Rate 1: 60 bpm Height: SpO2: 98% Weight: 12/04/2018 Blood Pressure 1: 130/78 Code: 8480-6 BMI: 28.1 Code: 18058-5 Heart Rate 1: 80 bpm Height: 5'5" SpO2: 97% Weight: 169 lbs 11/28/2018 Blood Pressure 1: 132/74 Code: 8480-6 BMI: 28.1 Code: 21333-3 Heart Rate 1: 73 bpm Height: 5'5" SpO2: 94% Waist Measure (cm): 97 cm Weight: 169 lbs 10/08/2018 Blood Pressure 1: 140/82 Code: 8480-6 Heart Rate 1: 80 bpm Height: 5'5" SpO2: 95% Temperature: 37.0 (C) / 98.6 (F) Weight: 09/11/2018 Blood Pressure 1: 114/76 Code: 8480-6 BMI: 29.3 Code: 62931-9 Heart Rate 1: 80 bpm Height: 5'5" SpO2: 95% Temperature: 36.3 (C) / 97.3 (F) Weight: 176 lbs 07/12/2018 Blood Pressure 1: 126/76 Code: 8480-6 BMI: 29.3 Code: 14100-1 Heart Rate 1: 70 bpm Height: 5'5" SpO2: 96% Weight: 176 lbs 05/07/2018 Blood Pressure 1: 118/72 Code: 8480-6 BMI: 29.5 Code: 58890-6 Heart Rate 1: 71 bpm Height: 5'5" SpO2: 98% Weight: 177 lbs 02/21/2018 Blood Pressure 1: 120/78 Code: 8480-6 BMI: 29.0 Code: 62032-2 Heart Rate 1: 68 bpm Height: 5'5" SpO2: 96% Weight: 174 lbs 11/28/2017 Blood Pressure 1: 122/98 Code: 8480-6 BMI: 31.0 Code: 68774-7 Heart Rate 1: 89 bpm Height: 5'5" SpO2: 98% Waist Measure (cm): 91 cm Weight: 186 lbs 08/29/2017 Blood Pressure 1: 146/80 Code: 8480-6 BMI: 29.5 Code: 13734-4 Heart Rate 1: 68 bpm Height: 5'5" SpO2: 98% Temperature: 36.6 (C) / 97.8 (F) Weight: 177 lbs 06/13/2017 Blood Pressure 1: 138/76 Code: 8480-6 BMI: 29.6 Code: 26630-3 Heart Rate 1: 63 bpm Height: 5'5" SpO2: 95% Weight: 178 lbs 02/16/2017 Blood Pressure 1: 128/80 Code: 8480-6 BMI: 29.9 Code: 44918-3 Heart Rate 1: 77 bpm Height: 5'5" SpO2: 96% Weight: 179 lbs 8 oz 02/06/2017 Blood Pressure 1: 140/80 Code: 8480-6 BMI: 29.8 Code: 76957-9 Heart Rate 1: 72 bpm Height: 5'5" SpO2: 97% Weight: 179 lbs 11/17/2016 Blood Pressure 1: 130/72 Code: 8480-6 BMI: 29.6 Code: 94535-8 Heart Rate 1: 62 bpm Height: 5'5" SpO2: 98% Waist Measure (cm): 91 cm Weight: 178 lbs 10/12/2016 Blood Pressure 1: 128/78 Code: 8480-6 BMI: 28.5 Code: 47111-7 Heart Rate 1: 62 bpm Height: 5'5" SpO2: 97% Weight: 171 lbs 09/05/2016 Blood Pressure 1: 122/70 Code: 8480-6 BMI: 28.0 Code: 98698-7 Heart Rate 1: 65 bpm Height: 5'5" SpO2: 94% Weight: 168 lbs 06/21/2016 Blood Pressure 1: 120/82 Code: 8480-6 BMI: 28.3 Code: 48081-6 Heart Rate 1: 65 bpm Height: 5'5" SpO2: 97% Weight: 170 lbs 05/24/2016 Blood Pressure 1: 136/80 Code: 8480-6 BMI: 28.1 Code: 33098-4 Heart Rate 1: 71 bpm Height: 5'5" SpO2: 96% Weight: 169 lbs 05/10/2016 Blood Pressure 1: 120/82 Code: 8480-6 BMI: 27.6 Code: 77127-1 Heart Rate 1: 86 bpm Height: 5'5" SpO2: 95% Weight: 166 lbs 05/03/2016 Blood Pressure 1: 124/78 Code: 8480-6 BMI: 28.1 Code: 73807-4 Heart Rate 1: 88 bpm Height: 5'5" SpO2: 97% Weight: 169 lbs 11/13/2015 Blood Pressure 1: 130/60 Code: 8480-6 BMI: 30.0 Code: 70483-4 Heart Rate 1: 7 bpm Height: 5'5" Waist Measure (cm): 97 cm Weight: 180 lbs 07/23/2015 Blood Pressure 1: 124/70 Code: 8480-6 BMI: 29.6 Code: 43062-0 Heart Rate 1: 74 bpm Height: 5'5" SpO2: 96% Temperature: 36.7 (C) / 98.1 (F) Weight: 178 lbs 07/06/2015 Blood Pressure 1: 138/78 Code: 8480-6 BMI: 29.6 Code: 36845-7 Heart Rate 1: 84 bpm Height: 5'5" SpO2: 96% Weight: 178 lbs 05/26/2015 Blood Pressure 1: 122/80 Code: 8480-6 BMI: 29.6 Code: 80331-1 Heart Rate 1: 84 bpm Height: 5'5" Weight: 178 lbs 02/16/2015 Blood Pressure 1: 124/82 Code: 8480-6 BMI: 29.0 Code: 88585-8 Heart Rate 1: 68 bpm Height: 5'5" Weight: 174 lbs 12/10/2014 Blood Pressure 1: 112/64 Code: 8480-6 BMI: 28.6 Code: 63852-8 Heart Rate 1: 80 bpm Height: 5'5" Weight: 172 lbs 10/16/2014 Blood Pressure 1: 128/84 Code: 8480-6 Heart Rate 1: 64 bpm Weight: 172 lbs 10/09/2014 Blood Pressure 1: 136/90 Code: 8480-6 BMI: 28.6 Code: 41768-5 Heart Rate 1: 76 bpm Height: 5'5" Weight: 172 lbs 08/26/2014 Blood Pressure 1: 118/72 Code: 8480-6 BMI: 29.0 Code: 89518-3 Heart Rate 1: 76 bpm Height: 5'5" Weight: 174 lbs 05/16/2014 Blood Pressure 1: 110/72 Code: 8480-6 BMI: 29.0 Code: 33078-2 Height: 5'5" Weight: 174 lbs 04/23/2014 Blood Pressure 1: 124/70 Code: 8480-6 BMI: 29.0 Code: 49403-5 Heart Rate 1: 72 bpm Height: 5'5" Weight: 174 lbs 04/15/2014 Temperature: 36.5 (C) / 97.7 (F) 01/21/2014 Blood Pressure 1: 98/62 Code: 8480-6 BMI: 29.0 Code: 21266- 5 Heart Rate 1: 84 bpm Height: 5'5" Temperature: 37.1 (C) / 98.7 (F) Weight: 174 lbs 12/05/2013 Blood Pressure 1: 138/88 Code: 8480-6 BMI: 29.0 Code: 77338-9 Heart Rate 1: 60 bpm Height: 5'5" Weight: 174 lbs 11/05/2013 Blood Pressure 1: 118/80 Code: 8480-6 BMI: 28.8 Code: 31291-4 Heart Rate 1: 76 bpm Height: 5'5" Weight: 173 lbs 10/15/2013 Blood Pressure 1: 120/78 Code: 8480-6 BMI: 29.1 Code: 14625-0 Heart Rate 1: 88 bpm Height: 5'5" Weight: 175 lbs 09/30/2013 Blood Pressure 1: 112/84 Code: 8480-6 BMI: 29.1 Code: 11865-5 Heart Rate 1: 68 bpm Height: 5'5" Weight: 175 lbs 03/13/2013 Blood Pressure 1: 112/84 Code: 8480-6 BMI: 28.6 Code: 76866-3 Heart Rate 1: 64 bpm Height: 5'5" Weight: 173 lbs 10/04/2012 Blood Pressure 1: 120/72 Code: 8480-6 BMI: 28.0 Code: 06642-4 Heart Rate 1: 64 bpm Height: 5'5" Weight: 169 lbs 08/22/2011 Blood Pressure 1: 134/84 Code: 8480-6 BMI: 27.5 Code: 45635-0 Heart Rate 1: 68 bpm Height: 5'5" Respiratory Rate: 16 bpm Weight: 166 lbs 8 oz 06/17/2011 Blood Pressure 1: 120/76 Code: 8480-6 BMI: 27.0 Code: 09085-0 Heart Rate 1: 58 bpm Height: 5'5" Respiratory Rate: 16 bpm Weight: 163 lbs Functional Status No Functional Status data History of Present Illness Symptom Name Status Result Effective Date Notes Location both ears 01/03/2019 None Quality worsening 01/03/2019 None Onset and Resolution ongoing 01/03/2019 None Quality imbalance 01/03/2019 None Quality loss of balance 01/03/2019 None Quality sense of motion 01/03/2019 None Onset and Resolution ongoing 01/03/2019 None _ Other: fall 01/03/2019 None Location face 01/03/2019 None _ Other: fall 12/28/2018 None Location face [...] data Encounters Encounter Performer Location Codes Date ( EST. PATIENT, LEVEL III Diagnosis: Benign paroxysmal vertigo, bilateral[ICD10: H81.13] Elina Alvarado MD, [facility] CPT-4: 11648 01/03/2019 ([id number]) 24881 EST. PATIENT, LEVEL III Diagnosis: Laceration without foreign body of other part of head, initial encounter[ICD10: S01.81XA] Suma Alvarado MD, [facility] CPT-4: 69689 12/28/2018 [id number] EST. PATIENT, LEVEL II Diagnosis: Insect bite (nonvenomous) of right upper arm, initial encounter[ICD10: S40.861A] Diagnosis: Insect bite of unspecified part of neck, initial encounter[ICD10: S10.96XA] Suma Alvarado MD, [facility] CPT-4: 58434 12/04/2018 [id number] 14733 EST. PATIENT, LEVEL III Diagnosis: Cough[ICD10: R05] Diagnosis: Acute bronchitis, unspecified[ICD10: J20.9] Suma Alvarado MD, [facility] CPT-4: 58438 10/08/2018 ([id number]) 73941 EST. PATIENT, LEVEL III Diagnosis: Cough[ICD10: R05] Diagnosis: Acute recurrent maxillary sinusitis[ICD10: J01.01] Suma Alvarado MD, [facility] CPT-4: 78702 09/11/2018 25870 EST. PATIENT, LEVEL III Diagnosis: Pain in right hand[ICD10: M79.641] Gina Alvarado MD, [facility] CPT-4: 02211 07/12/2018 ([id number]) 31853 EST. PATIENT, LEVEL II Diagnosis: Dysuria[ICD10: R30.0] Suma Alvarado MD, [facility] CPT-4: 44398 05/07/2018 71009 EST. PATIENT, LEVEL IV Diagnosis: Tinnitus, bilateral[ICD10: H93.13] Diagnosis: Other allergic rhinitis[ICD10: J30.89] Gina Alvarado MD, [facility] CPT- 4: 30594 02/21/2018 43855 EST. PATIENT, LEVEL III Diagnosis: Acute laryngopharyngitis[ICD10: J06.0] Diagnosis: Other allergic rhinitis[ICD10: J30.89] Gina Alvarado MD, [facility] CPT- 4: 27799 08/29/2017 ([id number]) 08154 EST. PATIENT, LEVEL IV Diagnosis: Postprocedural hypothyroidism[ICD10: E89.0] Diagnosis: Major depressive disorder, recurrent, moderate[ICD10: F33.1] Diagnosis: Generalized anxiety disorder[ICD10: F41.1] Elina Alvarado MD, [facility] CPT-4: 72111 06/13/2017 ([id number]) 04333 EST. PATIENT, LEVEL IV Diagnosis: Pelvic and perineal pain[ICD10: R10.2] Diagnosis: Acute vaginitis[ICD10: N76.0] Suma Alvarado MD, [facility] CPT-4: 01981 02/16/2017 ([id number]) 76689 EST. PATIENT, LEVEL III Diagnosis: Postprocedural hypothyroidism[ICD10: E89.0] Diagnosis: Major depressive disorder, recurrent, moderate[ICD10: F33.1] Elina Alvarado MD, [facility] CPT-4: 95922 02/06/2017 ([id number]) 42283 EST. PATIENT, LEVEL III Diagnosis: Generalized anxiety disorder[ICD10: F41.1] Elina Alvarado MD, [facility] CPT-4: 45873 10/12/2016 ([id number]) 07605 EST. PATIENT, LEVEL III Diagnosis: Cough[ICD10: R05] Diagnosis: Acute upper respiratory infection, unspecified[ICD10: J06.9] Suma Alvarado MD, [facility] CPT-4: 65033 09/05/2016 ([id number]) 75979 EST. PATIENT, LEVEL III Diagnosis: Generalized anxiety disorder[ICD10: F41.1] Diagnosis: Major depressive disorder, recurrent, moderate[ICD10: F33.1] Diagnosis: Postprocedural hypothyroidism[ICD10: E89.0] Elina Alvarado MD, [facility] CPT-4: 26536 06/21/2016 ([id number]) 40111 EST. PATIENT, LEVEL III Diagnosis: Major depressive disorder, recurrent, moderate[ICD10: F33.1] Elina Alvarado MD, [facility] CPT-4: 61299 05/24/2016 ([id number]) 26915 EST. PATIENT, LEVEL III Diagnosis: Major depressive disorder, recurrent, moderate[ICD10: F33.1] Elina Alvarado MD, [facility] CPT-4: 48716 05/10/2016 ([id number]) 39207 EST. PATIENT, LEVEL III Diagnosis: Generalized anxiety disorder[ICD10: F41.1] Diagnosis: Major depressive disorder, recurrent, moderate[ICD10: F33.1] Suma Alvarado MD, [facility] CPT-4: 70010 05/03/2016 ([id number]) 76646 EST. PATIENT, LEVEL III Diagnosis: Cough[ICD10: R05] Diagnosis: Acute upper respiratory infection, unspecified[ICD10: J06.9] Suma Alvarado MD, [facility] CPT-4: 90713 07/23/2015 ([id number]) 30014 EST. PATIENT, LEVEL III Diagnosis: Hypothyroidism, unspecified[ICD10: E03.9] Diagnosis: Generalized anxiety disorder[ICD10: F41.1] Diagnosis: Other depressive episodes[ICD10: F32.8] Elina Alvarado MD, [facility] CPT-4: 34595 07/06/2015 [id number]) 61738 EST. PATIENT, LEVEL IV Diagnosis: Generalized anxiety disorder[ICD10: F41.1] Diagnosis: Major depressive disorder, recurrent, unspecified[ICD10: F33.9] Elina Alvarado MD, [facility] CPT-4: 86836 05/26/2015 ([id number]) 36491 EST. PATIENT, LEVEL II Diagnosis: 2Nd degree burn of multiple fingers of right hand not including thumb[ICD9: 944.23] Suma Alvarado MD [facility] CPT-4: 12523 02/16/2015 ([id number]) 88600 EST. PATIENT, LEVEL IV Diagnosis: Hammertoe[ICD9: 735.4] Diagnosis: Foot pain[ICD9: 729.5] Diagnosis: HYPOTHYROIDISM[ICD9: 244.9] Elina Alvarado MD [facility] CPT-4: 80912 12/10/2014 ([id number]) 42596 EST. PATIENT, LEVEL III Diagnosis: Urinary incontinence[ICD9: 788.30] Diagnosis: Pelvic pain in female[ICD9: 625.9] Elina Alvarado MD [facility] CPT- 4: 11372 10/16/2014 ([id number]) 04134 EST. PATIENT, LEVEL III Diagnosis: Urinary incontinence[ICD9: 788.30] Diagnosis: Pelvic pain in female[ICD9: 625.9] Suma Alvarado MD, [facility] CPT- 4: 91003 10/09/2014 ([id number]) 92561 EST. PATIENT, LEVEL III Diagnosis: HYPOTHYROIDISM[ICD9: 244.9] Elina Alvarado MD [facility] CPT-4: 46889 08/26/2014 ([id number]) 58417 EST. PATIENT, LEVEL III Diagnosis: Neck pain[ICD9: 723.1] Diagnosis: Muscle tension headache[ICD9: 307.81] Suma Alvarado MD, [facility] CPT-4: 51797 05/16/2014 ([id number]) 42547 EST. PATIENT, LEVEL IV Diagnosis: Arthropod bite[ICD9: 919.4] Diagnosis: Poison gilmer dermatitis[ICD9: 692.6] Diagnosis: Arthralgia[ICD9: 719.40] Diagnosis: Myalgia[ICD9: 729.1] Elina Alvarado MD, [facility] CPT-4: 68314 04/23/2014 ([id number]) 02537 EST. PATIENT, LEVEL III Diagnosis: ACUTE URI[ICD9: 465.9] Diagnosis: COUGH[ICD9: 786.2] Suma Alvarado MD, [facility] CPT-4: 11433 01/21/2014 ([id number]) 22061 EST. PATIENT, LEVEL III Diagnosis: HYPOTHYROIDISM[ICD9: 244.9] Diagnosis: GENERALIZED ANXIETY DISEASE[ICD9: 300.02] Elina Alvarado MD, [facility] CPT-4: 76763 12/05/2013 ([id number]) 11514 EST. PATIENT, LEVEL III Diagnosis: GENERALIZED ANXIETY DISEASE[ICD9: 300.02] Diagnosis: DEPRESSIVE DISORDER NEC[ICD9: 311] Elina Alvarado MD [facility] CPT- 4: 12369 11/05/2013 ([id number]) 17058 EST. PATIENT, LEVEL III Diagnosis: HYPOTHYROIDISM[ICD9: 244.9] Elina Alvarado MD [facility] CPT-4: 92302 10/15/2013 ([id number]) Miscellaneous no charge Diagnosis: Colon cancer screening[ICD9: V76.51] Elina Alvarado MD [facility] CPT- 4: 88214 10/10/2013 ([id number]) 60033 EST. PATIENT, LEVEL IV Diagnosis: HYPOTHYROIDISM[ICD9: 244.9] Diagnosis: DEPRESSIVE DISORDER NEC[ICD9: 311] Diagnosis: GENERALIZED ANXIETY DISEASE[ICD9: 300.02] Diagnosis: HYPERLIPIDEMIA[ICD9: 272.4] Elina Alvarado MD [facility] CPT-4: 21533 03/13/2013 ([id number]) 54362 EST. PATIENT, LEVEL IV Diagnosis: HYPERLIPIDEMIA[ICD9: 272.4] Diagnosis: HYPOTHYROIDISM[ICD9: 244.9] Diagnosis: GENERALIZED ANXIETY DISEASE[ICD9: 300.02] Diagnosis: DEPRESSIVE DISORDER NEC[ICD9: 311] Elina Alvarado MD, [facility] CPT- 4: 37508 10/04/2012 ([id number]) 80319 EST. PATIENT, LEVEL III Diagnosis: VICTOR HUGO (generalized anxiety disorder)[ICD9: 300.02] Diagnosis: Chronic depression[ICD9: 311] [facility] CPT-4: 42553 08/22/2011 15640 EST. PATIENT, LEVEL IV Diagnosis: CHEST PAIN NEC[ICD9: 786.59] Diagnosis: HYPERLIPIDEMIA[ICD9: 272.4] Diagnosis: POSTSURGICAL HYPOTHYROIDISM[ICD9: 244.0] [facility] CPT-4: 77979 06/17/2011 Plan of Care Planned Activity Notes Codes Status Date Visit Plan: Vertigo - exercises given to patient - pt to be referred to [facility] Benavides for therapy. 01/03/2019 Patient Education: Patient Medication Summary Completed 01/03/2019 Visit Plan: Laceration due to fall -ER follow up -RX for bactroban ointment provided and instructed on use -return in 1 week for suture removal - call with any concerns or s/s of infection. Patient verbalized understanding of plan. 12/28/2018 Appointment: Suma Choi WPtel: [facility] [place] [phone] (15 min) Moderate 12/28/2018 Patient Education: Patient Medication Summary Completed 12/28/2018 Referral: Greg Murcia HPtel:[phone] [place] [address] Patient has been informed. Referral info faxed. Completed 12/24/2018 Visit Plan: Tick Bite - pt given script for treatment of infected tick bite, call for symptoms of worsening infection or nonhealing. 12/04/2018 Appointment: Suma Choi WPtel: [address] [place], [place] [phone] (30 min) Complex 12/04/2018 Patient Education: Patient [...] surrogate. 11/28/2018 Appointment: Gina Kern WPtel: [phone] [place] [address] - Annual Wellness Visit 11/28/2018 Patient Education: Patient Medication Summary Completed 11/28/2018 Care Plan: Referral Order SNOMED-CT : [id number] Pending 11/28/2018 Visit Plan: Bronchitis - acute case of bronchitis identified. Pt has been given antibiotics, breathing treatments as appropriate, and pt has been instructed to call if symptoms are not improved, or if symptoms acutely worsen. 10/08/2018 Appointment: Suma Choi WPtel: [phone] (30 min) Complex 10/08/2018 Patient Education: Patient Medication Summary Completed 10/08/2018 Visit Plan: Sinusitis - Pt has acute infection - pain in face, maxillary region, Pt informed to use decongestant, RX given to patient, sinus rinses also recommended. Call if symptoms do not show improvement. 09/11/2018 Appointment: Suma Choi WPtel: [phone] (15 min) Moderate 09/11/2018 Patient Education: Patient Medication Summary Completed 09/11/2018 Visit Plan: Right hand pain - ongoing - will send for x-ray - The pt is to use prn antiinflammatories to manage acute pain. The patient is to call the office if the pain is worsening or does not improve. 07/12/2018 Appointment: Gina Kern WPtel: [facility] (15 min) Moderate 07/12/2018 Patient Education: Patient Medication Summary Completed 07/12/2018 Care Plan: X-RAY EXAM OF HAND LOINC : 15926-3 Pending 07/12/2018 Visit Plan: Dysuria- UA negative -symptoms resolved -instructed patient to continue with adequate fluid intake and call if symptoms return. Patient verbalized understanding of plan. 05/07/2018 Appointment: Suma Choi WPtel: [address] [place], [place] [phone] (15 min) Moderate 05/07/2018 Patient Education: Patient Medication Summary Completed 05/07/2018 Appointment: Injection 04/24/2018 Patient Education: Patient Medication Summary Completed 04/24/2018 Referral: Peter Rubio [address] Referral Completed 03/22/2018 Visit Plan: Allergies [...] hearing testing 02/21/2018 Appointment: Gina Kern WPtel: [address] [place] [address] (15 min) Moderate 02/21/2018 Patient Education: Patient Medication Summary Completed 02/21/2018 Care Plan: Referral Order SNOMED-CT : [id number] Pending 02/21/2018 Appointment: Elina Alvarado WPtel: [address] [place], [place] [phone] (15 min) Moderate 12/14/2017 Visit Plan: [...] Completed 11/28/2017 Appointment: Gina Kern WPtel: [phone] [facility] [facility] - Annual Wellness Visit 11/21/2017 Visit [...] allergy spray. 08/29/2017 Appointment: Gina Kern WPtel: [phone] [facility] (15 min) Moderate 08/29/2017 Patient Education: Patient [...] with counseling. 06/13/2017 App[facility]ment[phone] ([facility] min) Moderate 06/13/2017 Patient Education: Patient Medication Summary Completed 06/13/2017 Appointment: Injection 06/07/2017 Patient Education: Patient Medication Summary Completed 06/07/2017 Visit Plan: Pelvic pain-UA negative-pap done today in the office- will start patient on flagyl for bacterial vaginosis-instructed patient to call if symptoms do not resolve or if any worse. Patient verbalized understanding of plan. 02/16/2017 Appointment: Suma Choi WPtel: [phone] [phone] (30 min) Complex 02/16/2017 Patient Education: [...] medications. 02/06/2017 Appointment: [phone] (15 min) Moderate 02/06/2017 Patient Education: Patient [...] 11/17/2016 Appointment: Gina Kern WPtel: [phone] [facility] [place] [address] - Annual Wellness Visit 11/17/2016 Patient Education: [...] 10/12/2016 Appointment: Elina Alvarado WPtel: [facility]5 [address] (15 min) Moderate 10/12/2016 Patient Education: Patient [...] J06.9 09/05/2016 Appointment: Suma Choi WPtel: [facility]3 [phone] (10 min) Simple 09/05/2016 Patient Education: Patient [...] lexapro 06/21/2016 Appointment: Elina Alvarado WPtel: [facility]1 [facility] (15 min) Moderate 06/21/2016 Patient Education: Patient Medication Summary Completed 06/21/2016 Visit Plan: Depression - improved with lexapro - continue with current treatment and counseling. 05/24/2016 Appointment: Elina Alvarado WPtel: [phone] [facility] (15 min) Moderate 05/24/2016 Patient Education: Patient Medication Summary Completed 05/24/2016 Visit Plan: Depression - improved on the Lexapro - stop ativan - start on xanax 05/10/2016 Appointment: Elina Alvarado WPtel: [phone] [facility] (15 min) Moderate 05/10/2016 Patient Education: [...] 05/03/2016 Appointment: Suma Choi WPtel: [facility]9 [phone] [place] (15 min) Moderate 02/26/2016 [...] and to maintain independece in the home. Encwgxbyoa-ksrdbhvglwhr-ipmwsf to wellbutrin Pneumonia 13 administered today in [...] and to maintain independece in the home. Qrrijhhqpz-agcidyxhnkck-levxcj to wellbutrin Pneumonia 13 administered today in the office 11/13/2015 Appointment: [facility] - Annual Wellness Visit 11/13/2015 Patient Education: Patient Medication Summary Completed 11/13/2015 Patient Education: Obesity Completed 11/13/2015 Care Plan: SCREENINGMAMMOGRAPHYDIGITAL [facility] : [address]4 Ordered 11/13/2015 Appointment: Lab Draw 08/10/2015 Visit [...] medications. 07/06/2015 Appointment: Elina Alvarado WPtel: [facility] ([facility]) [facility] 07/06/2015 Patient Education: Patient Medication Summary [...] discharge. 12/10/2014 Appointment: Elina Alvarado WPtel: [facility]6 [place] [id number] Surgical Clearance 12/10/2014 Patient Education: Patient Medication Summary Completed 12/10/2014 Visit Plan: Urinary incontinence and Pelvic discomfort - recommended pt to have evaluation by Dr. Brandt - pt agreeable to referral. Pt is to call if abdominal pain does not improve. 10/16/2014 Appointment: Elina Alvarado WPtel: [address] [place] [address] Follow up 10/16/2014 Patient Education: Patient Medication Summary Completed 10/16/2014 Care Plan: Referral Order SNOMED-CT : [id number] Ordered 10/16/2014 Patient Education: Patient Medication Summary Completed 10/10/2014 Visit Plan: Pelvic pain-history of mesh implant-recommend CT abd/pelvis to evaluate for any abnormality-refer to Dr Woods if pain does not improve Urinary incontinence-check UA with C&S if indicated 10/09/2014 Patient Education: Patient Medication Summary Completed 10/09/2014 Care Plan: [facility] & PELV 1[facility] Ordered 10/09/2014 Visit Plan: Hypothyroidism - pt [...] 08/26/2014 Appointment: Elina Alvarado WPtel: [facility] Follow up 08/26/2014 Patient Education: Patient [...] screening. 04/23/2014 Appointment: Elina Alvarado WPtel: [address] [place], [place] [phone] Sick 04/23/2014 Patient Education: Patient Medication Summary Completed 04/23/2014 Care Plan: Referral Order SNOMED-CT : [id number] Ordered 04/23/2014 Appointment: Nurse Visit 04/15/2014 Patient Education: Patient Medication Summary Completed 04/15/2014 Appointment: Elina Alvarado WPtel: [address] [place], [place] [phone] [place] Injection 02/11/2014 Patient Education: Patient Medication [...] current treatment. 12/05/2013 Appointment: Elina Alvarado WPtel: [facility]7 [facility] [place] Follow up 12/05/2013 Patient Education: Patient [...] medications. 11/05/2013 Appointment: [facility]varado [facility]el: [phone] [facility] Follow up 11/05/2013 Patient Education: Patient Medication [...] control. 10/15/2013 Appointment: El[facility] Alvarado [facility]Ptel: [phone] [facility] [facility] 10/15/2013 Patient Education: Patient Medication [...] care surrogate. 09/30/2013 Appointment: Elina Alvarado WPtel: [phone] [facility] [facility] - Initial Preventive Physical Exam 09/30/2013 Patient Education: Patient Medication Summary Completed 09/30/2013 Appointment: Elina Alvarado WPtel: [phone] [facility] [facility] - Initial Preventive Physical Exam 09/11/2013 [...] use. 03/13/2013 Appointment: El[facility] Alvarado WPtel: [phone] [facility] Follow up 03/13/2013 Patient Education: Patient Medication [...] 10/04/2012 Appointment: Elina Alvarado WPtel: [phone] [facility] Follow up 10/04/2012 Patient Education: Patient [...] attacks. 08/22/2011 Appointment: El[facility] Alvarado [facility]Ptel: [phone] [facility] Other 08/22/2011 Patient Education: Patient Medication Summary [...] ULTRASOUND 06/17/2011 Appointment: Elina Alvarado WPtel: [phone] [facility] Other 06/17/2011 Patient Education: Patient Medication Summary Completed 06/17/2011 Referral: RikkiRaimundo WPtel: Referral Appointment Requested Referral: [facility]cia [phone] [facility] [place] Referral Initiated Referral: Peter Rubio [facility] Referral Initiated Referral: Dr. Phelps WPtel: Referral [...] and to maintain independece in the home. Hmepslhefk-ztiypcmdjugn-hxugoz to wellbutrin Pneumonia 13 administered today in [...] and to maintain independece in the home. Mlkpcifaad-nnuukafslebs-ovxjld to wellbutrin Pneumonia 13 administered today in [...] stop ativan - start on xanax . Laceration due to fall -ER follow up -RX for bactroban ointment provided and instructed on use -return in 1 week for suture removal -call with any concerns or s/s of infection. Patient verbalized understanding of plan. . Dysuria- [...] based on previous levels of control. . Vertigo - exercises given to patient - pt to be referred to [facility] Ben[facility] for therapy. . Depression - improved with lexapro - [...]
[2019-01-15] MEDS ORDERED: PROPOFOL INJECTION 50 ML IV ONE (12:38)
[2019-01-15] MEDS ORDERED: MIDAZOLAM 2 MG/2 ML (VERSED) VIAL ONE (12:38)
--- NOTE | 2019-01-15 13:08 | Progress Note-Pre Operative ---
Pre-Operative Progress Note H&P Reviewed The H&P was reviewed, patient examined and no changes noted. Date Seen by Provider: Jan 15, 2019 Time Seen by Provider: 13:07 Date H&P Reviewed: Jan 15, 2019 Time H&P Reviewed: 13:07 Pre-Operative Diagnosis: hx polyps, family hx colon cancer MANDY TREVIÑO DO Jan 15, 2019 13:07
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
--- NOTE | 2019-01-15 13:45 | Progress Note-Post Operative ---
Post-Operative Progess Note Surgeon (s)/Gum Maker (s) Surgeon MANDY TREVIÑO DO Gum Maker: na Pre-Operative Diagnosis hx polyps, family hx colon cancer Post-Operative Diagnosis colon polyps, diverticulosis Procedure & Operative Findings Date of Procedure 01/15/19 Procedure Performed/Findings colonoscopy c hot bx polypectomy x 2 Anesthesia Type per accounting professor Estimated Blood Loss Estimated blood loss (mL): none Specimens/Packing Specimens Removed ascending and descending colon polyps MANDY TREVIÑO DO Jan 15, 2019 13:45
--- NOTE | 2019-01-15 13:48 | Discharge Inst-Simple/Standard ---
Discharge Inst-Standard Patient Instructions/Follow Up Plan of Care/Instructions/FU: 2 weeks Divina Activity as Tolerated: Yes Discharge Diet: Regular Diet (high fiber) MANDY TREVIÑO DO Jan 15, 2019 13:48
[2019-01-15 14:00] VITALS: BP 127/74
--- NOTE | 2019-01-15 14:06 | Anesthesia-General Post-Op ---
MAC Patient Condition Mental Status/LOC: Same as Preop Cardiovascular: Satisfactory Nausea/Vomiting: Absent Respiratory: Satisfactory Pain: Controlled Complications: Absent Post Op Complications Complications None Follow Up Care/Instructions Patient Instructions None needed. Anesthesiology Discharge Order Discharge Order Patient is doing well, no complaints, stable vital signs, no apparent adverse anesthesia problems. EILEEN LIMA DO Jan 15, 2019 14:06
[2019-01-15 14:35] VITALS: BP 129/80
[2019-01-15] MEDS ORDERED: LACTATED RINGERS 1,000 ML IV SCH (14:45)
--- NOTE | 2019-01-15 20:22 | OPERATIVE REPORT ---
DATE OF SERVICE: 01/15/2019 PREOPERATIVE DIAGNOSES: History of polyps, family history of colon cancer. POSTOPERATIVE DIAGNOSES: Colon polyps, diverticulosis. PROCEDURE: Colonoscopy with hot biopsy polypectomy x2. SURGEON: Mandy Murcia DO ANESTHESIA: Per PURSE SEINER. ESTIMATED BLOOD LOSS: None. SPECIMENS: Ascending and descending colon polyp. INDICATIONS: The patient is a 73-year-old female with history of polyps, family history of colon cancer. She understands risks and benefits of procedure and wished to proceed with procedure. Consent was signed in the chart. DESCRIPTION OF PROCEDURE: The patient was taken to the endoscopy suite, placed in left lateral recumbent position. Timeout was performed. Digital rectal exam was performed. There were no palpable polyps, mass or ulcerations. The scope was inserted in the rectum and advanced all the way to cecum with minimal difficulty. Prep was adequate. Scope was then slowly retracted back. The terminal ileum was intubated, no pathology noted. Scope was returned back into the colon. The cecum had no polyps, masses or ulcerations. Scope was slowly retracted back. In the ascending colon, small polyp was present, which hot biopsy polypectomy was performed. Scope was then continued to be slowly retracted back. There were no polyps, mass or ulcerations within the remainder of the ascending, transverse colon. In the descending colon, another small polyp was present, which hot biopsy polypectomy was performed. Scope was then continued to be slowly retracted back noting no other polyps, masses or ulcerations in the remainder of the descending, sigmoid and rectum. Once in the rectum, scope was retroflexed noting no other pathology. Scope was returned to its normal position, slowly withdrawn until completely removed. The patient tolerated procedure well without any complications. She was taken to recovery room in stable condition. RECOMMENDATIONS: The patient recommended high fiber diet. The patient to have repeat colonoscopy in 5 years. Any issues before then, will be seen at that time. The patient will follow up in the office in two weeks to discuss pathology results. Job ID: [id number] DocumentID: [id number] Dictated Date: 01/15/2019 13:46:31 Systems Manager Date: 01/15/2019 20:21:14 Dictated By: MANDY MURCIA DO
== END 2019-01-15 14:35 ==
LOC: ENDO 12:21
PROVIDERS: ATTEND Surgery
DX: Z12.11 Encounter for screening for malignant neoplasm of colon (principal); D12.2 Benign neoplasm of ascending colon; K57.30 Diverticulosis of large intestine without perforation or abscess without bleeding; Z80.0 Family history of malignant neoplasm of digestive organs; F32.9 Major depressive disorder, single episode, unspecified; F41.9 Anxiety disorder, unspecified; E78.5 Hyperlipidemia, unspecified; F17.210 Nicotine dependence, cigarettes, uncomplicated; Z79.899 Other long term (current) drug therapy; Z87.19 Personal history of other diseases of the digestive system

== ENCOUNTER → 2019-03-21 | Outpatient (CLI) | payer MEDICARE, BC ==
[~2019-03-21] MED LIST changes: -LACTATED RINGERS 1,000 ML IV ONE
--- NOTE | 2019-03-21 20:21 | Diagnostic Imaging Report ---
INDICATION: Routine screening. Comparison is made with prior mammograms from 11/29/2017 and 12/30/2015. 2-D and 3-D bilateral screening mammography was performed. The current study was also evaluated with a Computer Aided Detection (CAD) system. 3-D tomosynthesis was also performed and reviewed. FINDINGS: Scattered fibroglandular densities are identified bilaterally. No mass or malignant-appearing microcalcifications are seen. The axillae are unremarkable. IMPRESSION: No mammographic features suspicious for malignancy are identified. ACR BI-RADS Category 1: Negative. Result letter will be mailed to the patient. Note: At least 10% of breast cancer is not imaged by mammography. Dictated by: Dictated on workstation # [id number]
== END ==
LOC: RAD 14:04
PROVIDERS: ATTEND Nurse Practitioner Family
DX: Z12.31 Encounter for screening mammogram for malignant neoplasm of breast (principal)
CPT/HCPCS: 77067

== ENCOUNTER → 2020-08-11 | Outpatient (CLI) | payer MEDICARE, BC | LOC: LABNPT 05:41 | PROVIDERS: ATTEND Family Medicine | DX: R50.9 Fever, unspecified (principal); Z20.822 Contact with and (suspected) exposure to COVID-19 | CPT/HCPCS: 87635 ==

== ENCOUNTER → 2020-10-06 | Outpatient (CLI) | payer MEDICARE, BC ==
--- NOTE | 2020-10-06 11:50 | Diagnostic Imaging Report ---
INDICATION: Left ankle pain and swelling. FINDINGS: AP, oblique, and lateral views of the left ankle reveal mild marginal spurring about the ankle joint; however, no fracture is identified. There is no evidence of malalignment. There is lateral ankle swelling. IMPRESSION: Degenerative findings in the ankle joint with lateral ankle swelling, possibly due to a ligamentous injury. No acute osseous abnormality is identified. Dictated by: Dictated on workstation # [id number]
== END ==
LOC: RAD 11:20
PROVIDERS: ATTEND Nurse Practitioner Family
DX: M25.472 Effusion, left ankle (principal); M19.072 Primary osteoarthritis, left ankle and foot
CPT/HCPCS: 73610

== ENCOUNTER → 2020-12-29 | Outpatient (CLI) | payer MEDICARE, BC ==
--- NOTE | 2020-12-29 12:49 | Diagnostic Imaging Report ---
INDICATION: Routine screening. COMPARISON: 03/21/2019 and 11/29/2017. TECHNIQUE: 2D and 3D bilateral screening mammography was performed with CAD. FINDINGS: Scattered fibroglandular densities are identified bilaterally. The parenchymal pattern is stable. No mass or malignant appearing microcalcifications are seen. The axillae are unremarkable. IMPRESSION: No mammographic features suspicious for malignancy are identified. ACR BI-RADS Category 1: Negative. Result letter will be mailed to the patient. Note: At least 10% of breast cancer is not imaged by mammography. Dictated by: Dictated on workstation # [id number]
== END ==
LOC: RAD 09:03
PROVIDERS: ATTEND Nurse Practitioner Family
DX: Z12.31 Encounter for screening mammogram for malignant neoplasm of breast (principal)
CPT/HCPCS: 77063; 77067

== ENCOUNTER 2021-02-16 05:40 | Outpatient (CLI) | payer MEDICARE, BC ==
[~2021-02-16] VITALS: Ht 167.7 cm; Wt 80.5 kg
[2021-02-17] MEDS ORDERED: ASPI-999 PO (08:45)
[2021-02-17] MEDS ORDERED: MELO-170 PO (08:45)
[2021-02-17] MEDS ORDERED: PRAZ1CAP2 PO (08:45)
[2021-02-17] MEDS ORDERED: ESCI-2 PO (08:45)
[2021-02-17] MEDS ORDERED: MV-M1TAB20 PO (08:45)
[2021-02-17] MEDS ORDERED: LEVO112T55 PO (08:45)
== END 2021-02-17 09:23 | disposition home or self-care (01) ==
LOC: PREOP 05:40
PROVIDERS: ATTEND Surgery
DX: Z01.818 Encounter for other preprocedural examination (principal)

== ENCOUNTER 2021-02-23 10:37 | Day surgery (SDC) | payer MEDICARE, BC ==
[~2021-02-23] VITALS: Ht 167.7 cm; Wt 80.5 kg
[~2021-02-23 10:37] MED LIST changes: +ASPI-999 PO; +ESCI-2 PO; +MELO-170 PO; +MV-M1TAB20 PO; +PRAZ1CAP2 PO
[2021-02-23] MEDS ORDERED: LACTATED RINGERS 1,000 ML IV STA (10:48)
[2021-02-23 10:50] VITALS: BP 142/80
[2021-02-23] MEDS ORDERED: LACTATED RINGERS 1,000 ML IV ONE (10:51)
--- NOTE | 2021-02-23 11:23 | Progress Note-Pre Operative ---
Pre-Operative Progress Note H&P Reviewed The H&P was reviewed, patient examined and no changes noted. Date Seen by Provider: Feb 23, 2021 Time Seen by Provider: : Date H&P Reviewed: Feb 23, 2021 Time H&P Reviewed: : Pre-Operative Diagnosis: family hx colon cancer, hx polyps MANDY TREVIÑO DO Feb 23, 2021 11:23
[2021-02-23] MEDS ORDERED: proPOfol 200 MG/20 ML (DIPRIVAN) VIAL IV ONE ×2 (11:48→12:39)
--- NOTE | 2021-02-23 12:39 | Progress Note-Post Operative ---
Post-Operative Progess Note Surgeon (s)/Oil Transport Driver (s) Surgeon MANDY TREVIÑO DO Oil Transport Driver: na Pre-Operative Diagnosis family hx colon cancer, hx polyps Post-Operative Diagnosis colon polyp, diverticulosis Procedure & Operative Findings Date of Procedure 02/23/21 Procedure Performed/Findings colonoscopy c hot bx polypectomy Anesthesia Type per wireless engineer Estimated Blood Loss Estimated blood loss (mL): none Specimens/Packing Specimens Removed transverse colon polyp MANDY TREVIÑO DO Feb 23, 2021 12:39
--- NOTE | 2021-02-23 12:40 | Discharge Inst-Simple/Standard ---
Discharge Inst-Standard Patient Instructions/Follow Up Plan of Care/Instructions/FU: 2 weeks Divina Activity as Tolerated: Yes Discharge Diet: Regular Diet (high fiber) MANDY TREVIÑO DO Feb 23, 2021 12:40
[2021-02-23 12:42] VITALS: BP 104/50
[2021-02-23 12:45] VITALS: BP 112/61
[2021-02-23 12:55] VITALS: BP 112/61
[2021-02-23 13:28] VITALS: BP 147/60
[2021-02-23 13:35] VITALS: BP 147/60
--- NOTE | 2021-02-23 13:46 | Anesthesia-General Post-Op ---
MAC Patient Condition Mental Status/LOC: Same as Preop Cardiovascular: Satisfactory Nausea/Vomiting: Absent Respiratory: Satisfactory Pain: Controlled Complications: Absent Post Op Complications Complications None Follow Up Care/Instructions Patient Instructions None needed. Anesthesiology Discharge Order Discharge Order Patient is doing well, no complaints, stable vital signs, no apparent adverse anesthesia problems. No complications reported per nursing. ALEIDA OSULLIVAN CRNA Feb 23, 2021 13:46
--- NOTE | 2021-02-23 18:56 | OPERATIVE REPORT ---
DATE OF SERVICE: 02/23/2021 PREOPERATIVE DIAGNOSES: Family history of colon cancer and history of polyps. POSTOPERATIVE DIAGNOSES: Colon polyp and diverticulosis. PROCEDURES PERFORMED: Colonoscopy with hot biopsy polypectomy. SURGEON: Mandy Murcia DO. ANESTHESIA: Per [employer]LECT[employer] SERVICE TECHNICIAN. ESTIMATED BLOOD LOSS: None. COMPLICATIONS: None. INDICATIONS FOR PROCEDURE: The patient is a 75-year-old female needing colonoscopy. She understands the risks and benefits of the procedure and wished to proceed with the procedure. Consent was signed in the chart. DESCRIPTION OF PROCEDURE: The patient was taken to the endoscopy suite and placed in a left lateral recumbent position. Timeout was performed. Digital rectal exam was performed. No palpable polyps, masses or ulcerations. Scope was inserted in the rectum and advanced all the way to the cecum with minimal difficulty. Prep was adequate. Scope was then slowly retracted back. No polyps, masses or ulcerations within the cecum and ascending colon. In the transverse colon, a small polyp was present, which hot biopsy polypectomy was performed. Scope was then continued to be slowly retracted back. No polyps, masses or ulcerations within the remainder of the transverse, descending and sigmoid colon, throughout the majority of the left colon including transverse diverticulosis present. Scope was then continued to be slowly retracted back into the rectum, where it was also retroflexed noting no other pathology. Scope was returned to its normal position, slowly withdrawn until completely removed. The patient tolerated the procedure well without any complications. She was taken to the recovery room in a stable condition. RECOMMENDATIONS: The patient will need repeat colonoscopy in five years if benefits outweigh the risks. Otherwise, also the patient needs high fiber diet due to diverticulosis. The patient will follow up in the office in two weeks to discuss. Job ID: [id number] DocumentID: [id number] Dictated Date: 02/23/2021 12:45:07 [facility] Paramedic Date: 02/23/2021 18:56:08 Dictated By: MANDY MURCIA DO
== END 2021-02-23 13:40 | disposition home or self-care (01) ==
LOC: ENDO 10:37
PROVIDERS: ATTEND Surgery
DX: Z12.11 Encounter for screening for malignant neoplasm of colon (principal); K63.5 Polyp of colon; K57.30 Diverticulosis of large intestine without perforation or abscess without bleeding; I10 Essential (primary) hypertension; Z79.899 Other long term (current) drug therapy; Z80.0 Family history of malignant neoplasm of digestive organs; Z79.02 Long term (current) use of antithrombotics/antiplatelets
CPT/HCPCS: 88305

== ENCOUNTER → 2022-01-20 | Outpatient (CLI) | payer MEDICARE, BC ==
--- NOTE | 2022-01-20 14:32 | Diagnostic Imaging Report ---
Indication: Routine screening. Comparison is made with prior mammograms 12/29/2020 and 03/21/2019. 2-D and 3-D bilateral screening mammography was performed with CAD. Scattered fibroglandular densities are identified bilaterally. The parenchymal pattern is stable. No mass or malignant-appearing microcalcifications are seen. Axillae are unremarkable. IMPRESSION: BI-RADS Category 1 No mammographic features suspicious for malignancy are identified. ACR BI-RADS Category 1: Negative. Result letter will be mailed to the patient. Note: At least 10% of breast cancer is not imaged by mammography. Dictated by: Dictated on workstation # [id number]
== END ==
LOC: RAD 13:28
PROVIDERS: ATTEND Nurse Practitioner Family
DX: Z12.31 Encounter for screening mammogram for malignant neoplasm of breast (principal)
CPT/HCPCS: 77063; 77067

== ENCOUNTER → 2023-03-14 | Outpatient (CLI) | payer MEDICARE, BC ==
--- NOTE | 2023-03-14 14:37 | Diagnostic Imaging Report ---
INDICATION: Routine screening. COMPARISON: 01/20/2022 and 12/29/2020. TECHNIQUE: 2D and 3D bilateral screening mammography was performed with CAD. FINDINGS: Scattered fibroglandular densities are identified bilaterally. The parenchymal pattern is stable. No mass or malignant-appearing microcalcifications are seen. The axillae are unremarkable. IMPRESSION: No mammographic features suspicious for malignancy are identified. ACR BI-RADS Category 1: Negative. Result letter will be mailed to the patient. Note: At least 10% of breast cancer is not imaged by mammography. Dictated by: Dictated on workstation # [id number]
--- NOTE | 2023-03-14 16:20 | Diagnostic Imaging Report ---
INDICATION: Postmenopausal screening for osteoporosis. COMPARISON: 10/20/2013 FINDINGS: AP Spine L1-L4: [BMD (g/cm2): 1.249] [T-Score: 0.4] [Z-Score: 1.7] [BMD Previous: 1.210] [BMD % Change: 3.2*] LT Hip Neck: [BMD (g/cm2): 1.124] [T-Score: 0.6] [Z-Score: 2.2] LT Hip Total: [BMD (g/cm2):1.126] [T-Score:0.9] [Z-Score: 2.3] [BMD Previous: 1.172] [BMD % Change: -3.9*] RT Hip Neck: [BMD (g/cm2):1.016] [T-Score:-0.2] [Z-Score:1.4] RT Hip Total: [BMD (g/cm2):1.075] [T-score:0.5] [Z-Score:1.9] [BMD Previous:1.136] [BMD % Change:-5.4*] *Indicates significant change from prior examination based on 95% confidence level. World Health Organization criteria for BMD interpretation classify patients as Normal (T-score at or above -1.0), Osteopenic (T-score between -1.0 and -2.5) or Osteoporotic (T-score at or below -2.5). LIMITATIONS AND MODIFICATION: None. FRACTURE RISK (FRAX SCORE): The ten year probability of (%): Major Osteoporotic Fracture: [na] Hip Fracture: [na] IMPRESSION: 1. Normal bone mineral density. 2. Bone mineral density has decreased by a statistically significant amount, as detailed above. 3. See below National Osteoporosis Foundation guidelines on when to potentially initiate pharmacologic therapy. Based on the National Osteoporosis Foundation Guidelines, pharmacologic treatment should be initiated in any of the following, unless clinical conditions suggest otherwise: * Any patient with prior fragility fracture of the hip or vertebrae. A spine fracture indicates 5X risk for subsequent spine fracture and 2X risk for subsequent hip fracture. * Osteoporosis (T-score <-2.5). * Postmenopausal women and men age 50 and older with low bone mass/osteopenia (T-score between -1.0 and -2.5) by DXA and 10-year major osteoporotic fracture greater than 20% or a 10-year probability of hip fracture greater than 3%. These fracture risks are supplied above in the FRAX score, if applicable. * Clinician judgement and/or patient preferences may indicate treatment for people with 10-year fracture probabilities above or below these levels. Dictated by: Dictated on workstation # [id number]
== END ==
LOC: RAD 10:16
PROVIDERS: ATTEND Family Medicine
DX: Z12.31 Encounter for screening mammogram for malignant neoplasm of breast (principal); Z13.820 Encounter for screening for osteoporosis; E03.9 Hypothyroidism, unspecified; R53.83 Other fatigue; N95.1 Menopausal and female climacteric states
CPT/HCPCS: 77063; 77067; 77080